=== PATIENT | female | born 1945 | race Caucasian/White ===

== ENCOUNTER 2022-01-10 14:42 | Outpatient (CLI) | payer MEDICARE, SELFPAY ==
--- OUTSIDE RECORDS SUMMARY | 2022-01-10 14:45 | XMS_ITS | Encounter Summary ---
:1945 Author Organization [facility] Address [address] [place] [address] Care Team Providers Name Role Phone Elsewhere, Pcp Primary Care Provider Unavailable Reason for Referral Outpatient (Routine) - Closed Specialty Diagnoses / Procedures Referred By Contact Refer red To Contact Diagnoses Neuropathy Antonio Flores M.D. [facility] Procedures EMG [address] [place], [place] [address] Referral ID Status Reason Start Date Expiration Date Visits Requ ested Visits Authorized [id number] Closed 09/27/2021 09/27/2022 1 1 Outpatient (Routine) - Closed Specialty Diagnoses / Procedures Referred By Contact Refer red To Contact Diagnoses Neuropathy Antonio Flores M.D. [facility] Procedures Quantitative sensory test (QST) [address] [place], [place] [address] Referral ID Status Reason Start Date Expiration Date Visits Requ ested Visits Authorized [id number] Closed 09/27/2021 09/27/2022 1 1 Outpatient (Routine) - Closed Specialty Diagnoses / Procedures Referred By Contact Refer red To Contact Diagnoses Neuropathy Antonio Flores M.D. [facility] Procedures Autonomic reflex Screen [address] [place], [place] [phone] Referral ID Status Reason Start Date Expiration Date Visits Requ ested Visits Authorized [id number] Closed 09/27/2021 09/27/2022 1 1 Reason for Visit Reason Comments Pre-visit Testing Orders Encounter Details Date Type Department Care Team Description 09/19/2021 Clinical Communication Department of Mark, Pre- visit Testing Neurology in Antonio Doll M.D. Orders [place], [facility] [address] [place], [place] [address] [facility] [address] [place], [place] [phone] (Work) [phone] 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 Tobacco Use Types Packs/Day Years [...] or relatives? How often do you attend mosque or Never 2021 cheondoism services? Do you belong to any clubs or No 09/22/2021 organizations such as mosque groups, unions, fraternal or athletic groups, or [...] place to sleep or slept in a care home (including now)? Sex Assigned at Date [...] ? Final Report Study Number: 1 [facility] Drilling And Production Superintendent: Jimmy Abdi. 127 o r [phone] Referred by: ANTONIO FLORES (127 o r [phone]) Referred for: Peripheral Neuropathy Referral Code: ?200 [...] sensorimotor neuropathy . Joy Abdi (127 or [phone])/[facility] NERVE CONDUCTIONS ??Record Rep ?? [...] Final Repor t Study Number: 1 [facility] Drilling And Production Superintendent: Jimmy Abdi. 127 o r [phone] Referred by: ANTONIO FLORES (127 o r [phone]) Referred for: Peripheral Neuropathy Referral Code: 200 [...] sensorimotor neuropathy . Joy Abdi (127 or [phone])/[facility] NERVE CONDUCTIONS Record Rep Normal [...] ? [phone] ? A ge: 76 ?Location: [facility] ? Lab #: [id number] Apolonia William ? S ex: F ? Order ID: ??[id number] ? Date: 10/03/2021 : 1945 Autonomic Drilling And Production Superintendent: Destiney Jara M.D. ([id number]) ?CONCLUSION Abnormal study. There is evidence of [...] to the Valsalva maneuver were reduced. (B) [id number] blood pressure response s to the Valsalva [...] Neuropathy documented in this encounter Care Teams Bus Steward Relationship Specialty Start Date End Date Elsewhere, Pcp PCP - General Internal Medicine 09/26/21 documented as of this encounter
--- OUTSIDE RECORDS SUMMARY | 2022-01-10 14:45 | XMS_ITS | Clinical Summary ---
:1945 Author Organization [facility] Address [address] [place] [address] Care Team Providers Name Role Phone Elsewhere, Pcp Primary Care Provider Unavailable Source Comments Patient records contain information from all sites at [facility]. For routine questions regarding patient records, call [phone] during business hours, M-F 8:00 AM - 5:00 PM Central Time. Record requests for emergency care only can be directed to [phone] at any time.[facility] Allergies Active Allergy Reactions Severity Noted Date [...] or relatives? How often do you attend scientologist or Never 2021 hinduism services? Do you belong to any clubs or No 09/22/2021 organizations such as scientologist groups, unions, fraternal or athletic groups, or [...] place to sleep or slept in a senior living (including now)? Education Answer Date Recorded What [...] 08/14/2021, 04/2018 Medical Devices Implanted Type Area Justice Court Deputy Clerk Device Shelf Model / Identifier Expiration Serial / Date Lot Hardware E.G. Hardware Right: Pins/Screws/R e.g. Wrist ods pins/screws/ rods Description: Titanium plate Insurance Payer Benefit Plan / Subscriber ID Effective Dates Phone Addre ss Type Group MEDICARE MEDICARE A AND [id number] 2012-Prese [address] Medicare B [place] [id number] AARP AARP [id number] 2021-Presen [phone] [id number] [place] [address] Care Teams Patient Partner Relationship Specialty Start Date End Date Elsewhere, Pcp PCP - General Internal Medicine 09/26/21
--- OUTSIDE RECORDS SUMMARY | 2022-01-10 14:45 | XMS_ITS | Encounter Summary ---
:1945 Author Organization [facility] Address [address] [place] [address] Care Team Providers Name Role Phone Elsewhere, Pcp Primary Care Provider Unavailable Reason for Referral Outpatient (Routine) - Authorized Specialty Diagnoses / Procedures Referred By Contact Refer red To Contact Diagnoses Primary Osteoarthritis Knee Bilateral [facility] DX Knee Bilateral Standing 2 Views M.D. [address] [place] [phone] Referral ID Status Reason Start Date Expiration Date Visits V isits Requested Authorized [id number] Authorized 11/23/2021 11/23/2022 1 1 Outpatient (Routine) - Authorized Specialty Diagnoses / Procedures Referred By Referred To Contact Contact Physical Medicine and Diagnoses Primary Osteoarthritis Knee Bilateral Iban Flores [facility] Meka Doll M.D. [address] [place] [phone] Referral ID Status Reason Start Date Expiration Date Visits V isits Requested Authorized [id number] Authorized 11/23/2021 11/23/2022 1 1 Scheduling Instructions Please schedule if possible just before PM&R evaluation Reason for Visit Outpatient (Routine) - Closed Specialty Diagnoses / Procedures Referred By Contact Refer red To Contact Neurology Edgar Armstrong M.D. [facility] [address] [place] [phone] Referral ID Status Reason Start Date Expiration Date Visits Requ ested Visits Authorized [id number] Closed 09/26/2021 09/26/2022 1 1 Encounter Details Date Type Department Care Team Description 11/23/2021 Telemedicine Department of [facility], Primary Osteoa rthritis Neurology in Iban Doll M.D. Knee Bilateral (Primary [place], [place] [address] [facility] D[facility]) [address] [place] [phone] 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 Tobacco Use Types Packs/Day Years [...] or relatives? How often do you attend muslim or Never 2021 episcopalian services? Do you belong to any clubs or No 09/22/2021 organizations such as muslim groups, unions, fraternal or athletic groups, or [...] Primary documented in this encounter Care Teams Spiral Gear Generator Relationship Specialty Start Date End Date Elsewhere, Pcp PCP - General Internal Medicine 09/26/21 documented as of this encounter
--- OUTSIDE RECORDS SUMMARY | 2022-01-10 14:45 | XMS_ITS | Encounter Summary ---
:1945 Author Organization [facility] Address [address] [place] [address] Care Team Providers Name Role Phone Unavailable Primary Care Provider Unavailable Encounter Details Date Type Department Care Team Description 09/25/2021 Clinical Communication Visit Review in [place], [place] [address] [place], [place] [address] 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 Tobacco Use Types Packs/Day Years [...] or relatives? How often do you attend spiritism or Never 2021 restoration services? Do you belong to any clubs or No 09/22/2021 organizations such as spiritism groups, unions, fraternal or athletic groups, or [...] place to sleep or slept in a jail (including now)? Education Answer Date Recorded What [...]
--- OUTSIDE RECORDS SUMMARY | 2022-01-10 14:45 | XMS_ITS | Encounter Summary ---
:1945 Author Organization [facility] Address [address] [place] [address] Care Team Providers Name Role Phone Elsewhere, Pcp Primary Care Provider Unavailable Reason for Referral Outpatient (Routine) - Closed Specialty Diagnoses / Procedures Referred By Contact Refer red To Contact Diagnoses Neuropathy Antonio Flores M.D. [facility] Procedures EMG [address] [place] [address] Referral ID Status Reason Start Date Expiration Date Visits Requ ested Visits Authorized [id number] Closed 09/27/2021 09/27/2022 1 1 Reason for Visit Outpatient (Routine) - Closed Specialty Diagnoses / Procedures Referred By Contact Refer red To Contact Diagnoses Neuropathy Antonio Flores M.D. [facility] Procedures EMG [address] [place] [address] Referral ID Status Reason Start Date Expiration Date Visits Requ ested Visits Authorized [id number] Closed 09/27/2021 09/27/2022 1 1 Encounter Details Date Type Department Care Team Description 10/03/2021 Hospital Encounter Department of Neurology Antonio Flores Neuropathy in [facility] ollie Doll M.D. [address] [place] [phone] (Wo rk) 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 Tobacco Use Types [...] or relatives? How often do you attend mandaeism or Never 2021 anglican services? Do you belong to any clubs or No 09/22/2021 organizations such as mandaeism groups, unions, fraternal or athletic groups, or [...] place to sleep or slept in a halfway (including now)? Education Answer Date Recorded What [...] ? Final Report Study Number: 1 EMG Chief School Finance Officer: Jimmy Abdi. 127 o r [phone] Referred by: ANTONIO FLORES ([phone] o r [phone]) Referred for: Peripheral Neuropathy Referral Code: ?200 [...] sensorimotor neuropathy . Joy Abdi (127 or [phone])/[facility] NERVE CONDUCTIONS ??Record Rep ?? Normal ??Normal [...] Final Repor t Study Number: 1 EMG Chief School Finance Officer: Jimmy Abdi. 127 o r [phone] Referred by: ANTONIO FLORES (127 o r [phone]) Referred for: Peripheral Neuropathy Referral Code: 200 [...] sensorimotor neuropathy . Joy Abdi (127 or [phone])/[facility] NERVE CONDUCTIONS Record Rep Normal Normal Distal [...] Neuropathy documented in this encounter Care Teams Python Java Developer Relationship Specialty Start Date End Date Elsewhere, Pcp PCP - General Internal Medicine 09/26/21 documented as of this encounter
--- OUTSIDE RECORDS SUMMARY | 2022-01-10 14:45 | XMS_ITS | Encounter Summary ---
:1945 Author Organization [facility] Address [address] [place] [address] Care Team Providers Name Role Phone Elsewhere, Pcp Primary Care Provider Unavailable Reason for Referral Outpatient (Routine) - Closed Specialty Diagnoses / Procedures Referred By Contact Refer red To Contact Neurology Edgar Armstrong M.D. [facility] [address] [place], [place] [address] Referral ID Status Reason Start Date Expiration Date Visits Requ ested Visits Authorized [id number] Closed 09/26/2021 09/26/2022 1 1 Outpatient (Routine) - Closed Specialty Diagnoses / Procedures Referred By Contact Navjot maria To Contact Diagnoses Neuropathy Edgar Armstrong M.D. [facility] Procedures Fat Aspirate [address] [place], [place] [address] Referral ID Status Reason Start Date Expiration Date Visits Requ ested Visits Authorized [id number] Closed 09/26/2021 09/26/2022 1 1 Reason for Visit Appointment Request (Routine) - Closed Specialty Diagnoses / Procedures Referred By Contact Navjot maria To Contact Neurology Diagnoses Neuropathy Imbalance Non Orthopedic Referral ID Status Reason Start Date Expiration Date Visits Requ ested Visits Authorized [id number] Closed 08/31/2021 08/31/2022 1 1 Encounter Details Date Type Department Care Team Description 09/26/2021 Comprehensive Visit Department of [place], Neuropa thy (Primary Neurology in Iban Doll M.D. Dx) Harriet, [address] [place], [place] [address] [facility] [address] [place], [place] [phone] (Work) [phone] 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 Tobacco Use Types Packs/Day Years [...] do you attend judaism or Never 2021 sabianism services? Do you belong to any clubs [...] place to sleep or slept in a detention (including now)? Education Answer Date Recorded What [...] provider found She was previously evaluated at [facility] Neurological [facility]. CHIEF COMPLAINT / REASON FOR VISIT Apolonia William is a 76 y.o. female who presents for evaluation of peripheral neuropathy. HISTORY OF PRESENT ILLNESS is a pleasant 76 y.o. right handed female from [place], [place]. 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 Apolonia William presents today [...] than three times a week ??? Attends Church Services: Never ??? Active Member of Clubs [...] age of 86. Her mother has beenat halfway for the last 3 years that she [...] pooling) Coordination: Normal rapid alternating movements and zkqhag-ck-rnqf testing IMPRESSION #1 Length-dependent sensory peripheral neuropathy; [...] ??? Monoclonal Gammopathy Diagnostic ??? Pernicious Anemia [place] ??? Thyroid Function [place] ??? Vitamin B6 Profile (PLP and PA) [...] Name Type Priority Associated Diagnoses Order S [facility] Neurology office Outpatient Referral Routine Expe cted: visit (clinic) 09/26/2021 (Approximate), Expires: 12/27/2022 documented as of this encounter Results [place] FNA BX WO IMG 1ST [place]ES[place], HC [...] M.D. PROCEDURE/MINOR SURGICAL ORD ERABLES Thyroid Function [place] (09/28/2021 7:33 AM CDT) athologist Signature TSH, Sensitive 3.2 0.3 - 4.2 09/28/2021 DT mIU/L 8:53 AM CDT Specimen Anatomical Collection Method Collection Time Receive d Time (Source) Location / / Volume Laterality Blood (Blood, 09/28/2021 7:33 AM 09/29/19 22 8:26 Venous) CDT AM CDT Edgar Armstrong M.D. LAB BLOOD ADD-ON Performing Organization Address City/[facility]/ZIP Code Phon e Number [facility] - [address] [place], [place] [address] [place] [address] [facility] [address] Pernicious Anemia [place] (09/28/2021 7:33 AM CDT) athologist Signature Vitamin B12 770 180 - 914 09/28/2021 [facility] Assay, S ng/L 12:30 PM CDT Specimen Anatomical Collection Method Collection Time Receive d Time (Source) Location / / Volume Laterality Blood (Blood, 09/28/2021 7:33 AM 09/29/19 22 Venous) CDT 11:31 AM CDT Edgar Armstrong M.D. LAB BLOOD NON ADD-ON Performing Organization Address City/[facility] Phon e Number [facility] [address] [place], [place] [address] [facility] [place] [address] Laboratory Medicine and Pathology [address] [...] Organization Address City/State/ZIP Code Phon e Number [facility] - [address] [place], [place] [address] [facility] [place] [address] [facility] [address] (ABNORMAL) [...] M.D. LAB BLOOD ADD-ON Performing Organization Address City/[facility] Phon e Number [facility] - [address] [place], [place] [address] [place] [address] [facility] [address] HIV-1/-2 Ag and Ab Screen, Plasma (09/28/2021 7:33 AM CDT) athologist Signature HIV-1/-2 Ag Negative Negative 09/28/2021 [facility] and Ab Screen, 12:05 PM CDT Comment: [...] Organization Address City/State/ZIP Code Phon e Number [facility] [address] [place], [place] [address] [facility] [facility] [place] [address] Laboratory Medicine and Pathology [address] [...] Organization Address City/State/ZIP Code Phon e Number [facility] - [address] [place], [place] [address] [facility] [place] [address] [facility] [address] Zinc (09/28/2021 7:32 AM CDT) athologist Signature Zinc, S 66 60 - 106 09/28/2021 [facility] mcg/dL 12:58 PM CDT Comment: ----ADDITIONAL INFORMATION---- This test was developed and its performa nce characteristics determined by [facility] in a manner consistent with CLIA requirements. This test has not been cleared or approved by the [place] d and Drug Administration. Specimen Anatomical Collection Method Collection Time Receive d Time (Source) Location / / Volume Laterality Blood (Blood, 09/28/2021 7:32 AM 09/29/19 22 Venous) CDT 10:47 AM CDT Edgar Armstrong M.D. LAB BLOOD NON ADD-ON Performing Organization Address City/[facility]/ZIP Code Phon e Number [facility] [address] [place] [facility] 05 [facility] [facility] [place] [address] Laboratory Medicine and Pathology [address] [place] [address] Dr. [place] Vitamin E Level (09/28/2021 7:32 AM CDT) athologist Signature A-Tocopherol, 11.5 5.5 - 17.0 09/29/2021 [facility] Vitamin E mg/L 11:59 PM CDT Comment: ----ADDITIONAL INFORMATION---- This test was developed and its performa nce characteristics determined by [facility] in a manner consistent with CLIA requirements. This test has not been cleared or approved by the [place] d and Drug Administration. Specimen Anatomical Collection Method Collection Time Receive d Time (Source) Location / / Volume Laterality Blood (Blood, 09/28/2021 7:32 AM 09/29/19 22 Venous) CDT 11:54 AM CDT Edgar Armstrong M.D. LAB BLOOD NON ADD-ON Performing Organization Address City/[facility]/ZIP Code Phon e Number [facility] [address] [place] [address] [facility] [facility] [place] [address] Laboratory Medicine and Pathology [address] [place] [address] Dr. [place] Monoclonal Gammopathy Diagnostic (09/28/2021 7:32 AM CDT) Patholo gist Method Time Signature Therapeutic Unspecified 09/28/2021 [facility] Antibody 10:34 AM Administered? CDT Total Protein, 6.9 6.3 - 7.9 09/28/2021 [facility] S g/dL 11:20 AM CDT [place] Free 1.53 0.3300 - 09/28/2021 [facility] Light Chain, S 1.94 mg/dL 10:50 AM CDT [place] Free 1.02 0.5700 - 09/28/2021 [facility] Light Chain, S 2.63 mg/dL 10:50 AM CDT [place]/Lambda 1.50 0.2600 - 09/28/2021 [facility] FLC Ratio [...] and its performa nce characteristics determined by [facility] in a manner consistent with CLIA requirements. This test has not been cleared or approved by the [place] d and Drug Administration. Specimen Anatomical Collection Method Collection Time Receive d Time (Source) Location / / Volume Laterality Blood (Blood, 09/28/2021 7:32 AM 09/29/19 Venous) CDT 10:32 AM CDT Narrative [facility] SUPPORT [place] R - 09/29/2021 11:25 AM CDT Specimen Information: Specimen ID: [id number] Specimen Type: Blood Specimen Collection Start Date: 09/29/19 ??7:32 AM Specimen Received Date: 09/28/2021 10:32 AM Specimen ID: [id number] Specimen Type: Blood Specimen Collection Start Date: 09/29/19 ??7:32 AM Specimen Received Date: 09/28/2021 10:32 AM Edgar Armstrong M.D. LAB BLOOD ADD-ON Performing Organization Address City/[facility] Code Phon e Number [address] [place] [address] [address] [facility] [place] [address] Laboratory Medicine and Pathology [address] [place] [address] Dr. [place] Cryoglobulin (09/28/2021 7:32 AM CDT) [facility] Method Time Signature Cryoglobulin, Negative Negative 09/29/2021 [facility] S %ppt 10:47 AM CDT Comment: This [...] LAB BLOOD NON ADD-ON Performing Organization Address City/[facility]/ZIP Code Phon e Number [address] [place], [place] [address] [address] [facility] [place] [address] Laboratory Medicine and Pathology [address] [place] [address] Dr. [place] (ABNORMAL) Copper (09/28/2021 7:32 AM CDT) P athologist Signature [place]pper, S 75 (L) 77 - 206 09/28/2021 [facility] mcg/dL 12:58 PM CDT Comment: ----ADDITIONAL INFORMATION---- This test was developed and its performa nce characteristics determined by [facility] in a manner consistent with CLIA requirements. This test has not been cleared or approved by the [place] d and Drug Administration. Specimen Anatomical Collection Method Collection Time Receive d Time (Source) Location / / Volume Laterality Blood (Blood, 09/28/2021 7:32 AM 09/29/19 22 Venous) CDT 10:47 AM CDT Edgar Armstrong M.D. LAB BLOOD NON ADD-ON Performing Organization Address City/[facility]/ZIP Code Phon e Number [facility] [address] [place], [place] [address] [place] [address] [place] [address] Laboratory Medicine and Pathology [address] [place] Antibody to Extractable Nuclear Antigen Evaluation (09/28/2021 7:32 AM CDT) P athologist Signature SS-A/Ro Ab, <0.2 <1.0 09/28/2021 [facility] IgG, S (Negative) 11:26 AM CDT U SS-B/La Ab, <0.2 <1.0 09/28/2021 [facility] IgG, S (Negative) 11:26 AM CDT U Sm Ab, IgG, S <0.2 <1.0 09/28/2021 [facility] (Negative) 11:26 AM CDT U DISTRIBUTION ANALYST Ab, IgG, S <0.2 <1.0 09/28/2021 [facility] (Negative) 11:26 AM CDT U Scl 70 Ab, IgG, <0.2 <1.0 09/28/2021 [facility] S (Negative) 11:26 AM CDT U Megan 1 Ab, IgG, S <0.2 <1.0 09/28/2021 [facility] (Negative) 11:26 AM CDT U Specimen Anatomical Collection Method Collection Time Receive d Time (Source) Location / / Volume Laterality Blood (Blood, 09/28/2021 7:32 AM 09/29/19 22 Venous) CDT 10:31 AM CDT Edgar Armstrong M.D. LAB BLOOD ADD-ON Performing Organization Address City/[facility]/ZIP Code Phon e Number [facility] [address] [place] [address] [facility] [place] [address] Laboratory Medicine and Pathology [address] [place] [address] Dr. [place] ANCA (Antineutrophil Cytoplasmic Antibodies) Vasculitis Panel (09/28/2021 7:32 AM CDT) Patholo gist Method Time Signature Myeloperoxidase Ab, <0.2 <0.4 09/28/2021 [facility] S (Negative 11:22 AM CDT ) U Proteinase 3 Ab <0.2 <0.4 09/28/2021 [facility] (PR3), S (Negative 11:22 AM CDT ) U Specimen Anatomical Collection Method Collection Time Receive d Time (Source) Location / / Volume Laterality Blood (Blood, 09/28/2021 7:32 AM 09/29/19 Venous) CDT 10:31 AM CDT Edgar Armstrong M.D. LAB BLOOD ADD-ON Performing Organization Address City/[facility]/ZIP Code Phon e Number [address] [place] [address] [place] [address] Laboratory Medicine and Pathology [address] [place] [address] Dr. [place] Vitamin B6 Profile (PLP and PA) (09/28/2021 7:31 AM CDT) athologist Signature Pyridoxal 32 5 - 50 09/29/2021 [facility] 5-Phosphate mcg/L 3:54 PM CDT (PLP), P Comment: ----ADDITIONAL INFORMATION---- This test was developed and its performa nce characteristics determined by [facility] in a manner consistent with CLIA requirements. This test has not been cleared or approved by the [place] d and Drug Administration. Pyridoxic Acid (PA), P 8 3 - 30 mcg/L 09/29/2021 3:5 4 PM CDT [facility] Comment: ----ADDITIONAL INFORMATION---- This test was developed and its performa nce characteristics determined by [facility] in a manner consistent with CLIA requirements. [...] Organization Address City/State/ZIP Code Phon e Number [facility] [address] [place] [address] CENTER [facility] [place] [address] Laboratory Medicine and Pathology [address] [place] documented in this encounter Visit Diagnoses Diagnosis Neuropathy - Primary Neuropathy Neuropathy documented in this encounter Care Teams Sugar Sampler Relationship Specialty Start Date End Date Elsewhere, Pcp PCP - General Internal Medicine 09/26/21 documented as of this encounter
--- OUTSIDE RECORDS SUMMARY | 2022-01-10 14:45 | XMS_ITS | Encounter Summary ---
:1945 Author Organization [facility] Address [address] [place] [address] Care Team Providers Name Role Phone Elsewhere, Pcp Primary Care Provider Unavailable Reason for Visit Outpatient (Routine) - Closed Specialty Diagnoses / Procedures Referred By Contact Refer red To Contact Diagnoses Neuropathy Edgar Armstrong M.D. [facility] Procedures Fat Aspirate [address] [place] [address] Referral ID Status Reason Start Date Expiration Date Visits Requ ested Visits Authorized [id number] Closed 09/26/2021 09/26/2022 1 1 Encounter Details Date Type Department Care Team Description 09/28/2021 Infusion Department of Infusion Therapy Edgar Armstrong, Neuropathy in [facility] [address] [facility] [address] [place] [address] [place], [place] [phone] (Wo rk) 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 Tobacco Use Types [...] or relatives? How often do you attend sikh or Never 2021 mormon services? Do you belong to any clubs or No 09/22/2021 organizations such as sikh groups, unions, fraternal or athletic groups, or [...] procedure are i n the results section. NM FNA BX WO IMG 1ST Routine 09/28/2021 8:00 AM Neuropathy R esults for this LESION CDT procedure are i n the results section. SUBCUTANEOUS FAT Routine 09/28/2021 5:24 AM Resul ts for this ASPIRATE CDT procedure are i n the results section. documented in this encounter Results NM FNA BX WO IMG 1ST [place], HC [...] Component Value Ref Test Analysis Performed At [facility] Method Time Signature 09/29/2021 [facility] 12:56 PM CDT Report Sergio French M.D. 09/29/2021 [facility] electronically 12:56 PM signed by CDT I verify that I have examined all relevant slides/materials for the specimen(s) and rendered or confirmed the diagnosis. Gross Description The subcutaneous fat aspirate used for diagnostic purposes 09/29/2021 [facility] consists of 0.5 mL fat. 12:56 PM CDT Interpretation FINAL DIAGNOSIS 09/29/2021 [facility] [place] red stain, abdominal subcutaneous fat aspirate 12:56 PM specimen: Amyloid is absent. CDT Specimen Anatomical Collection Method Collection Time Receive d Time (Source) Location / / Volume Laterality Varies 09/28/2021 5:24 AM 5:24 CDT AM CDT Narrative This result has an attachment that is no t available. Edgar Armstrong M.D. LAB PATHOLOGY/CYTOLOGY ORDER [place] Performing Organization Address City/State/ZIP Code Phon e Number [facility] - [address] [place], [place] [address] [place] [address] [facility] [address] documented in this encounter Visit Diagnoses Diagnosis Neuropathy documented in this encounter Care Teams Hyster Driver Relationship Specialty Start Date End Date Elsewhere, Pcp PCP - General Internal Medicine 09/26/21 documented as of this encounter
--- OUTSIDE RECORDS SUMMARY | 2022-01-10 14:45 | XMS_ITS | Encounter Summary ---
:1945 Author Organization [facility] Address [address] [place] [address] Care Team Providers Name Role Phone Elsewhere, Pcp Primary Care Provider Unavailable Reason for Referral Outpatient (Routine) - Closed Specialty Diagnoses / Procedures Referred By Contact Refer red To Contact Diagnoses Neuropathy Iban Flores M.D. [facility] Procedures Autonomic reflex Screen [address] [place] [address] Referral ID Status Reason Start Date Expiration Date Visits Requ ested Visits Authorized [id number] Closed 09/27/2021 09/27/2022 1 1 Reason for Visit Outpatient (Routine) - Closed Specialty Diagnoses / Procedures Referred By Contact Refer red To Contact Diagnoses Neuropathy Iban Flores M.D. [facility] Procedures Autonomic reflex Screen [address] [place] [address] Referral ID Status Reason Start Date Expiration Date Visits Requ ested Visits Authorized [id number] Closed 09/27/2021 09/27/2022 1 1 Encounter Details Date Type Department Care Team Description 10/03/2021 Hospital Encounter Department of Neurology Iban Flores Neuropathy in [facility] ollie Doll M.D. [address] [facility] [address] [place] [address] [phone] (Wo rk) 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 Tobacco Use Types [...] or relatives? How often do you attend druze or Never 2021 taoism services? Do you belong to any clubs or No 09/22/2021 organizations such as druze groups, unions, fraternal or athletic groups, or [...] ? [phone] ? A ge: 76 ?Location: [facility] ? Lab #: [id number] Apolonia William ? S ex: F ? Order ID: ??[id number] ? Date: 10/03/2021 : 1945 Autonomic All Round Butcher: Destiney Jara M.D. ([id number]) ?CONCLUSION Abnormal study. There is evidence of [...] to the Valsalva maneuver were reduced. (B) Fcvs-ry-yjhf blood pressure response s to the Valsalva [...] Code Phon e Number [facility] documented in this encounter Visit Diagnoses Diagnosis Neuropathy documented in this encounter Care Teams Automatic Machines Supervisor Relationship Specialty Start Date End Date Elsewhere, Pcp PCP - General Internal Medicine 09/26/21 documented as of this encounter
--- OUTSIDE RECORDS SUMMARY | 2022-01-10 14:45 | XMS_ITS | Encounter Summary ---
:1945 Author Organization [facility] Address [address] [place] [address] Care Team Providers Name Role Phone Elsewhere, Pcp Primary Care Provider Unavailable Reason for Visit Outpatient (Routine) - Closed Specialty Diagnoses / Procedures Referred By Contact Refer red To Contact Diagnoses Neuropathy Iban Flores M.D. [facility] Procedures Quantitative sensory test (QST) [address] [place] [address] Referral ID Status Reason Start Date Expiration Date Visits Requ ested Visits Authorized [id number] Closed 09/27/2021 09/27/2022 1 1 Encounter Details Date Type Department Care Team Description 09/28/2021 Diagnostic Department of Neurology in [place] Flores, Neuropathy [place], [place] Yenifer [address] [facility] [address] [place] [address] [place] [address] [phone] (Wo rk) 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 Tobacco Use Types [...] do you attend sikh or Never 2021 taoism services? Do you [...] to sleep or slept in a senior care (including now)? Education Answer Date Recorded What [...] Neuropathy documented in this encounter Care Teams Rotary Screen Printing Machine Operator Relationship Specialty Start Date End Date Elsewhere, Pcp PCP - General Internal Medicine 09/26/21 documented as of this encounter
--- OUTSIDE RECORDS SUMMARY | 2022-01-10 14:45 | XMS_ITS | Encounter Summary ---
:1945 Author Organization [facility] Address [address] [place] [address] Care Team Providers Name Role Phone Elsewhere, Pcp Primary Care Provider Unavailable Encounter Details Date Type Department Care Team Description 09/28/2021 Hospital Encounter Department of Laboratory [place], Neuropathy Medicine and Pathology, Ke stone M.D. [facility] in [address] [place] [address] [place] [id number] [place] [address] [phone] 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 Tobacco Use Types Packs/Day Years [...] or relatives? How often do you attend mandaen or Never 2021 mormon services? Do you belong to any clubs or No 09/22/2021 organizations such as mandaen groups, unions, fraternal or athletic groups, or [...] documented in this encounter Results Thyroid Function [place] (09/28/2021 7:33 AM CDT) P athologist Signature TSH, Sensitive 3.2 0.3 - 4.2 09/28/2021 [facility] mIU/L 8:53 AM CDT Specimen Anatomical Collection Method Collection Time Receive d Time (Source) Location / / Volume Laterality Blood (Blood, 09/28/2021 7:33 AM 09/29/19 8:26 Venous) CDT AM CDT Edgar Armstrong M.D. LAB BLOOD ADD-ON Performing Organization Address City/[facility]/ZIP Code Phon e Number [facility] - [address] [place], [place] [address] [place] [address] Laboratories-[facility] [address] Pernicious Anemia [place] (09/28/2021 7:33 AM CDT) athologist Signature Vitamin B12 770 180 - 914 09/28/2021 [facility] Assay, S ng/L 12:30 PM CDT Specimen Anatomical Collection Method Collection Time Receive d Time (Source) Location / / Volume Laterality Blood (Blood, 09/28/2021 7:33 AM 09/29/19 Venous) CDT 11:31 AM CDT Edgar Armstrong M.D. LAB BLOOD NON ADD-ON Performing Organization Address City/[facility]/ZIP [facility] Phon e Number [facility] [address] [place], [place] [address] SUPPORT CENTER [facility] [place] [address] Laboratory Medicine and Pathology [address] [...] M.D. LAB BLOOD ADD-ON Performing Organization Address City/[facility] Phon e Number [facility] - [address] [place], [place] [id number] [place] [address] (ABNORMAL) Hemoglobin A1c (09/28/2021 7:33 AM CDT) [...] M.D. LAB BLOOD ADD-ON Performing Organization Address City/State/[facility] Phon e Number [facility] - 200 [place], [place] [address] [facility] [place] [address] Laboratories-[address] HIV-1/-2 Ag and Ab Screen, Plasma (09/28/2021 7:33 AM CDT) P athologist Signature HIV-1/-2 Ag Negative Negative 09/28/2021 [facility] and Ab Screen, 12:05 PM CDT P [...] Organization Address City/State/ZIP Code Phon e Number [facility] [address] [place], [place] [address] SUPPORT CENTER [facility] [place] [address] Laboratory Medicine and Pathology [address] [...] M.D. LAB BLOOD ADD-ON Performing Organization Address City/[facility] Phon e Number [facility] - [facility] [place], [place] [address] [facility] [address] Laboratories-[facility] [address] Zinc (09/28/2021 7:32 AM CDT) athologist Signature Zinc, S 66 60 - 106 09/28/2021 [facility] mcg/dL 12:58 PM CDT Comment: ----ADDITIONAL INFORMATION---- This test was developed and its performa nce characteristics determined by [facility] in a manner consistent with CLIA requirements. This test has not been cleared or approved by the [place] and Drug Administration. Specimen Anatomical Collection Method Collection Time Receive d Time (Source) Location / / Volume Laterality Blood (Blood, 09/28/2021 7:32 AM 09/29/19 Venous) CDT 10:47 AM CDT Edgar Armstrong M.D. LAB BLOOD NON ADD-ON Performing Organization Address City/[facility] Phon e Number [facility] [address] [place], [place] [address] SU[facility]ENTER [facility] [place] [address] Laboratory Medicine and Pathology [address] [place] Vitamin E Level (09/28/2021 7:32 AM CDT) P athologist Signature A-Tocopherol, 11.5 5.5 - 17.0 09/29/2021 [facility] Vitamin E mg/L 11:59 PM CDT Comment: ----ADDITIONAL INFORMATION---- This test was developed and its performa nce characteristics determined by [facility] in a manner consistent with CLIA requirements. [...] Organization Address City/State/ZIP Code Phon e Number [facility] [address] [place], [place] [address] [place] [address] CENTER [facility] [address] Laboratory Medicine and Pathology [address] [place] Monoclonal Gammopathy Diagnostic (09/28/2021 7:32 AM CDT) Patholo gist Method Time Signature Therapeutic Unspecified 09/28/2021 [facility] Antibody 10:34 AM Administered? CDT Total Protein, 6.9 6.3 - 7.9 09/28/2021 [facility] S g/dL 11:20 AM CDT [place] Free 1.53 0.3300 - 09/28/2021 [facility] Light Chain, S 1.94 mg/dL 10:50 AM CDT [place] Free 1.02 0.5700 - 09/28/2021 [facility] Light Chain, S 2.63 mg/dL 10:50 AM CDT [place]/Lambda 1.50 0.2600 - 09/28/2021 [facility] FLC Ratio [...] and its performa nce characteristics determined by [facility] in a manner consistent with CLIA requirements. This test has not been cleared or approved by the [place] d and Drug Administration. Specimen Anatomical Collection Method Collection Time Receive d Time (Source) Location / / Volume Laterality Blood (Blood, 09/28/2021 7:32 AM 09/29/19 Venous) CDT 10:32 AM CDT Narrative [facility] SUPPORT [facility] - 09/29/2021 11:25 AM CDT Specimen Information: Specimen ID: [id number] Specimen Type: Blood Specimen Collection Start Date: 09/29/19 ??7:32 AM Specimen Received Date: 09/28/2021 10:32 AM Specimen ID: [id number] Specimen Type: Blood Specimen Collection Start Date: 09/29/19 22 ??7:32 AM Specimen Received Date: 09/28/2021 10:32 AM Edgar Armstrong M.D. LAB BLOOD ADD-ON Performing Organization Address City/State/ZIP Code Phon e Number [facility] [address] [place] [address] [place] [address] [place] [address] Laboratory Medicine and Pathology [address] [place] Cryoglobulin (09/28/2021 7:32 AM CDT) [facility] gist Method Time Signature Cryoglobulin, Negative Negative 09/29/2021 [facility] S %ppt 10:47 AM CDT Comment: [...] LAB BLOOD NON ADD-ON Performing Organization Address City/[facility]/ZIP Code Phon e Number [facility] [address] [place] [address] SUPPORT CENTER [facility] [place] [address] Laboratory Medicine and Pathology [address] [place] [address] Dr. [place] (ABNORMAL) [place] (09/28/2021 7:32 AM CDT) athologist Signature [place], S 75 (L) 77 - 206 09/28/2021 [facility] mcg/dL 12:58 PM CDT Comment: ----ADDITIONAL INFORMATION---- This test was developed and its performa nce characteristics determined by [facility] in a manner consistent with CLIA requirements. This test has not been cleared or approved by the [place] and Drug Administration. Specimen Anatomical Collection Method Collection Time Receive d Time (Source) Location / / Volume Laterality Blood (Blood, 09/28/2021 7:32 AM 09/29/19 22 Venous) CDT 10:47 AM CDT Edgar Armstrong M.D. LAB BLOOD NON ADD-ON Performing Organization Address City/[facility]/ZIP Code Phon e Number [facility] [address] [place] [address] [facility] [place] [address] Laboratory Medicine and Pathology [address] [place] [address] Dr. [place] Antibody to Extractable Nuclear Antigen Evaluation (09/28/2021 7:32 AM CDT) P athologist Signature SS-A/Ro Ab, <0.2 <1.0 09/28/2021 [facility] IgG, S (Negative) 11:26 AM CDT U SS-B/La Ab, <0.2 <1.0 09/28/2021 [facility] IgG, S (Negative) 11:26 AM CDT U Sm Ab, IgG, S <0.2 <1.0 09/28/2021 [facility] (Negative) 11:26 AM CDT U HANDKERCHIEF SAMPLE CLERK Ab, IgG, S <0.2 <1.0 09/28/2021 [facility] [...] M.D. LAB BLOOD ADD-ON Performing Organization Address City/[facility]/ZIP Code Phon e Number [facility] [address] [place] [address] [place] [address] Laboratory Medicine and Pathology [address] [place] ANCA (Antineutrophil Cytoplasmic Antibodies) Vasculitis Panel (09/28/2021 7:32 AM CDT) [facility] gist Method Time Signature Myeloperoxidase Ab, <0.2 <0.4 09/28/2021 [facility] S (Negative 11:22 AM CDT ) U Proteinase 3 Ab <0.2 <0.4 09/28/2021 [facility] (PR3), S (Negative 11:22 AM CDT ) U Specimen Anatomical Collection Method Collection Time Receive d Time (Source) Location / / Volume Laterality Blood (Blood, 09/28/2021 7:32 AM 09/29/19 22 Venous) CDT 10:31 AM CDT Edgar Armstrong M.D. LAB BLOOD ADD-ON Performing Organization Address City/State/ZIP Code Phon e Number [facility] [address] [place] [address] SUPPORT CENTER [facility] [place] [address] Laboratory Medicine and Pathology [address] [place] [address] Dr. [place] Vitamin B6 Profile (PLP and PA) (09/28/2021 7:31 AM CDT) athologist Signature Pyridoxal 32 5 - 50 09/29/2021 [facility] 5-Phosphate mcg/L 3:54 PM CDT (PLP), P Comment: ----ADDITIONAL INFORMATION---- This test was developed and its performa nce characteristics determined by [facility] in a manner consistent with CLIA requirements. This test has not been cleared or approved by the [place] and Drug Administration. Pyridoxic Acid (PA), P 8 3 - 30 mcg/L 09/29/2021 3:5 4 PM CDT [facility] Comment: ----ADDITIONAL INFORMATION---- This test was developed and its performa nce characteristics determined by [facility] in a manner consistent with CLIA requirements. [...] Organization Address City/State/ZIP Code Phon e Number [facility] [address] [place] [address] [facility] [address] Laboratory Medicine and Pathology [address] [place] [address] Dr. [place] documented in this encounter Visit Diagnoses Diagnosis Neuropathy documented in this encounter Care Teams Dip Unit Operator Relationship Specialty Start Date End Date Elsewhere, Pcp PCP - General Internal Medicine 09/26/21 documented as of this encounter
--- NOTE | 2022-01-10 15:00 | CRLHL7_ITS ---
For Patients: As a result of the Century Cures Act, medical imaging exams and procedure reports are released immediately into your electronic medical record. You may view this report before your referring provider. If you have questions, please contact your health care provider. DUPLEX ARTERIAL ULTRASOUND BILATERAL LOWER EXTREMITY 01/10/2022 CLINICAL HISTORY: Painful feet. COMPARISON: None. TECHNIQUE: The lower extremity arteries were examined per exam specific protocol with hernandez-scale ultrasound, color-flow and Doppler spectral analysis. Peak systolic velocities (PSV), Doppler waveform quality and velocity ratios, if applicable, were documented at sites per exam specific protocol. FINDINGS: There are predominantly multiphasic waveforms in the bilateral lower extremities except for the right AUREA which is monophasic. The velocities in the bilateral common femoral arteries are mildly elevated which may represent a less than 50 percent stenosis; however, there is no elevated velocity ratio to suggest a hemodynamically significant arterial stenosis in the bilateral lower extremities. LOWER EXTREMITY DUPLEX DOPPLER RIGHT: PSV WAVEFORM DEVELOPMENT DISABILITY SPECIALIST: 176 T DFA: 101 T FA PRX: 110 B FA MID: 102 T FA DIST: 108 B POP A: 68 B CYNTHIA A: 76 B FORM SETTER HELPER: 94 B AUREA: 35 M DPA: 65 B LEFT: PSV WAVEFORM DEVELOPMENT DISABILITY SPECIALIST: 167 T DFA: 118 T FA PRX: 131 T FA MID: 126 T FA DIST: 93 B POP A: 63 B CYNTHIA A: 87 B FORM SETTER HELPER: 92 B AUREA: 103 B DPA: 99 B IMPRESSION: 1. Right lower extremity: - Predominantly multiphasic waveforms in the arterial vasculature except for the AUREA which is monophasic. - Mildly elevated velocities in the common femoral artery may represent a less than 50% stenosis; however, there is no elevated velocity ratio to suggest a hemodynamically significant arterial stenosis. 2. Left lower extremity: - Multiphasic waveforms of the arterial vasculature. - Mildly elevated velocities in the common femoral artery may represent a less than 50% stenosis; however, there is no elevated velocity ratio to suggest a hemodynamically significant arterial stenosis. Kevin Parra M.D. Vascular and Interventional Radiology [email or web address] GRIS/asim be/Dictated by: Kevin Parra MD @ 01/10/2022 8:31:00 PM (Electronically Signed)
== END 2022-01-10 14:43 | disposition home or self-care (01) ==
PROVIDERS: PCP Family Medicine; Visit Provider Family Medicine
DX: M79.672 Pain in left foot (principal); M79.671 Pain in right foot; I70.203 Unspecified atherosclerosis of native arteries of extremities, bilateral legs
CPT/HCPCS: 93926

== ENCOUNTER 2022-01-10 17:06 | Outpatient (CLI) | payer MEDICARE, SELFPAY ==
--- OUTSIDE RECORDS SUMMARY | 2022-01-10 13:59 | XMS_ITS | Encounter Summary ---
:1945 Author Organization [facility] Address [address] [place] [address] Care Team Providers Name Role Phone Elsewhere, Pcp Primary Care Provider Unavailable Reason for Visit Outpatient (Routine) - Closed Specialty Diagnoses / Procedures Referred By Contact Refer red To Contact Diagnoses Neuropathy Iban Flores M.D. [facility] Procedures Quantitative sensory test (QST) [address] [place] [address] Referral ID Status Reason Start Date Expiration Date Visits Requ ested Visits Authorized [id number] Closed 09/27/2021 09/27/2022 1 1 Encounter Details Date Type Department Care Team Description 09/28/2021 Diagnostic Department of Neurology in [place] Flores, Neuropathy [place], [place] Yenifer [address] [facility] [address] [place] [address] [place] [address] [phone] (Wo rk) 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 Tobacco Use Types Packs/Day Years Used Date Smoking Tobacco: Never Smokeless Tobacco: Never Alcohol Use Standard Drinks/Week Comments Yes 2 (1 standard drink = 0.6 oz pure alcoho l) Alcohol Habits Answer Date Recorded How often do you have a drink containing alcohol? 2-4 times a month 09/22/2021 How many drinks containing alcohol do you have on a 1 or 2 09/22/2021 typical day when you are drinking? How often do you have six or more drinks on one Never 09/22/2021 occasion? Comment: Not asked Social Isolation Answer Date Recorded In a typical week, how many times do you More than three kay es a week 09/22/2021 talk on the phone with family, friends, or neighbors? How often do you get together with friends More than three t imes a week 09/22/2021 or relatives? How often do you attend christianity or Never 2021 temple services? Do you belong to any clubs or No 09/22/2021 organizations such as christianity groups, unions, fraternal or athletic groups, or school groups? How often do you attend meetings of the Never 09/22/2021 clubs or organizations you belong to? Are you now , , , 09/22/2021 , never or living with a partner? Physical Activity Answer Date Recorded On average, how many days per week do you engage in moderate to 0 days 09/22/2021 strenuous exercise (like walking fast, running, jogging, dancing, swimming, biking, or other activities that cause a light or heavy sweat)? On average, how many minutes do you engage in exercise at th is 0 min 09/22/2021 level? Stress Answer Date Recorded Do you feel stress - tense, restless, nervous, or To some ex tent 09/22/2021 anxious, or unable to sleep at night because your mind is troubled all the time - these days? Financial Resource Strain Answer Date Recorded How hard is it for you to pay for the very basics like Not h nikita at all 09/22/2021 food, housing, medical care, and heating? Intimate Partner Violence Answer Date Recorded Within the last year, have you been afraid of your partner o r No 09/22/2021 ex-partner? Within the last year, have you been humiliated or emotionall y No 09/22/2021 abused in other ways by your partner or ex-partner? Within the last year, have you been kicked, hit, slapped, or No 09/22/2021 otherwise physically hurt by your partner or ex-partner? Within the last year, have you been raped or forced to have any No 09/22/2021 kind of sexual activity by your partner or ex-partner? Food Insecurity Answer Date Recorded Within the past 12 months, you worried that your food would Never true 09/22/2021 run out before you got money to buy more. Within the past 12 months, the food you bought just didn't N ever true 09/22/2021 last and you didn't have money to get more. Transportation Needs Answer Date Recorded In the past 12 months, has lack of transportation kept you f rom No 09/22/2021 medical appointments or from getting medications? In the past 12 months, has lack of transportation kept you f rom No 09/22/2021 meetings, work, or getting things needed for daily living? Housing Stability Answer Date Recorded In the last 12 months, was there a time when you were not ab le No 09/22/2021 to pay the mortgage or rent on time? In the last 12 months, how many places have you lived? 1 09/22/2021 In the last 12 months, was there a time when you did not hav e a No 09/22/[address] to sleep or slept in a fpc (including now)? Education Answer Date Recorded What is the highest level of school you have Some college, n o degree 09/22/2021 completed or the highest degree you have received? Sex Assigned at Date Recorded Female 09/22/2021 7:06 AM CDT documented as of this encounter Plan of Treatment Not on filedocumented as of this encounter Procedures Procedure Name Priority Date/Time Associated Comments Diagnosis QUANTITATIVE SENSORY Routine 09/28/2021 10:43 Neuropathy Res ults for this TEST (QST) AM CDT procedure are i n the results section. documented in this encounter Results Quantitative sensory test (QST) (09/28/2021 10:43 AM CDT) Specimen (Source) Anatomical Location Collection Method / Collectio n Time Received Time / Laterality Volume Narrative MMODAL - 10/16/2021 2:51 PM CDT Images from the original result were not included. Interpretation of QST Results: This is an abnormal study. The threshold to heat as pain is elevated in the left foot. The thresholds to touch p ressure, vibration, and cooling are normal in the left foot. These findi ngs suggest an abnormality of the unmyelinated sensory fibers serving the left limb. Iban Flores M.D. NEUROLOGY ORDERABLES Performing Organization Address City/State/ZIP Code Phon e Number MMODAL MMODAL NA documented in this encounter Visit Diagnoses Diagnosis Neuropathy documented in this encounter Care Teams Sheep Clipper Relationship Specialty Start Date End Date Elsewhere, Pcp PCP - General Internal Medicine 09/26/21 documented as of this encounter
--- OUTSIDE RECORDS SUMMARY | 2022-01-10 13:59 | XMS_ITS | Encounter Summary ---
:1945 Author Organization [facility] Address [address] [place] [address] Care Team Providers Name Role Phone Elsewhere, Pcp Primary Care Provider Unavailable Reason for Referral Outpatient (Routine) - Closed Specialty Diagnoses / Procedures Referred By Contact Refer red To Contact Diagnoses Neuropathy Iban Flores M.D. [facility] Procedures Autonomic reflex Screen [address] [place] [address] Referral ID Status Reason Start Date Expiration Date Visits Requ ested Visits Authorized [id number] Closed 09/27/2021 09/27/2022 1 1 Reason for Visit Outpatient (Routine) - Closed Specialty Diagnoses / Procedures Referred By Contact Refer red To Contact Diagnoses Neuropathy Iban Flores M.D. [facility] Procedures Autonomic reflex Screen [address] [place] [address] Referral ID Status Reason Start Date Expiration Date Visits Requ ested Visits Authorized [id number] Closed 09/27/2021 09/27/2022 1 1 Encounter Details Date Type Department Care Team Description 10/03/2021 Hospital Encounter Department of Neurology Iban Flores Neuropathy in [facility] ollie Doll M.D. [address] [facility] [address] [place] [phone] (Wo rk) 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 Tobacco Use Types [...] or relatives? How often do you attend rastafari or Never 2021 buddhism services? Do you belong to any clubs or No 09/22/2021 organizations such as rastafari groups, unions, fraternal or athletic groups, or [...] place to sleep or slept in a longterm (including now)? Education Answer Date Recorded What is the highest level of school you have Some college, n o degree 09/22/2021 completed or the highest degree you have received? Sex Assigned at Date Recorded Female 09/22/2021 7:06 AM CDT documented as of this encounter Medications at Time of Discharge Medication Sig Dispensed Refills Start Date End Date aspirin 81 mg chewable Chew 81 mg daily. 0 2017 tablet chlorthalidone (HYGROTON) Take 12.5 mg by 0 25 mg tablet mouth daily. cyanocobalamin (VITAMIN Take 1 tablet by 0 2017 B12) 1,000 mcg tablet mouth daily. diphenhydrAMINE-acetaminoph Take 0.5 tablets by 0 en (TYLENOL PM) 25-500 mg mouth at bedtime as per tablet needed for sleep. DULoxetine (CYMBALTA) 30 mg Take 1 capsule by 0 0 06/27/2021 DR capsule mouth daily. inulin (FIBER GUMMIES ORAL) as needed. 0 metoprolol tartrate Take 1 tablet by 0 07/10/2017 (LOPRESSOR) 50 mg tablet mouth 2 (two) times a day. multivitamin tablet Take 1 tablet by 0 07/10/2017 mouth daily. omeprazole (PriLOSEC) 20 mg Take 1 capsule by 0 1 04/10/2019 DR capsule mouth once a week. simvastatin (ZOCOR) 20 mg Take 1 tablet by 0 06/30 tablet mouth daily. documented as of this encounter Plan of Treatment Not on filedocumented as of this encounter Procedures Procedure Name Priority Date/Time Associated Diagnosis Comme nts AUTONOMIC REFLEX Routine 10/03/2021 8:35 AM Neuropathy Resul ts for this SCREEN CDT procedure are i n the results section. documented in this encounter Results Autonomic reflex Screen (10/03/2021 8:35 AM CDT) Specimen (Source) Anatomical Collection Method Collection Time Re ceived Time Location / / Volume Laterality 10/03/2021 7:45 AM CDT Narrative [facility] - 10/03/2021 10:02 AM CDT FINAL ? REPORT ? AUTONOMIC REFLEX SCREEN ? [phone] ? A ge: 76 ?Location: [facility] ? Lab #: [id number] Apolonia William ? S ex: F ? Order ID: ??[id number] ? Date: 10/03/2021 : 1945 Autonomic Irrigation Tax Assessor Collector: Destiney Jara M.D. ([id number]) ?CONCLUSION Abnormal study. There is evidence of mil d to moderately severe cardiovagal impairment while postganglionic sympathe tic sudomotor and cardiovascular adrenergic function is preserved. Medica tion effects (metoprolol) are likely influencing the results although a limited autonomic neuropathy cannot be excluded. ?QUANTITATIVE AXON REFLEX SWEAT TEST (QSWEAT) ?Test ? Latency ??Sweat Output ??Sweat Output Normal Cutoff Side ?Site ? Current ?? Dura tion ? (min) ?(uL) ?5th (10th) Percentile ? (mA) ? (min) ? L ? Forearm ? 2 ?10 ? 2.1 ? 0.65 ? F: ?? 0.08 (0.13) L ? Proximal Leg ?2 ?10 ? 1.6 ? 0.37 ? F: ?? 0.19 (0.31) L ? Distal Leg ?2 ?10 ? 1.8 ? 0.21 ? F: ?? 0.14 (0.23) L ? Foot ?2 ?10 ? 1.5 ? 1.04 ? F: ?? 0.07 (0.14) Comments on Sudomotor Test: QSART respon ses were normal at all sites. ?DEEP BREATHING & VALSALVA MANEUVER RESPONSES ?Result ? Normal Cutoff Deep Breathing ?Heart Rate Range (bpm) ? 3.7 ? > 7 Valsalva Maneuver ? Valsalv a Ratio ? 1.27 ? > 1.39 Comments on Deep Breathing: ??Heart rate responses to deep breathing were reduced. Comments on Valsalva maneuver: (A) Heart rate responses to the Valsalva maneuver were reduced. (B) Zysy-hh-[id number] blood pressure response s to the Valsalva maneuver were essentially normal. ?B LOOD PRESSURE AND HEART RATE RESPONSES TO TILT ? BP (mmHg) ?Heart Rate (BPM) ?Supine ? 146/80 ? 54 ?Tilt 1 min ? 130/84 ? 65 ?Tilt 2 min ? 132/82 ? 64 ?Tilt 3 min ? 128/78 ? 61 ?Tilt 5 min ? 134/80 ? 65 Comments on Tilt: Patient was tilted for 5 minutes. Orthostatic hypotension was not detected. Heart rate response was normal. The patient reported no symptoms. -99 = missing value ?? Iban Flores M.D. NEUROLOGY ORDERABLES Performing Organization Address City/State/ZIP Code Phon e Number [facility] documented in this encounter Visit Diagnoses Diagnosis Neuropathy documented in this encounter Care Teams Material Flow Engineer Relationship Specialty Start Date End Date Elsewhere, Pcp PCP - General Internal Medicine 09/26/21 documented as of this encounter
--- OUTSIDE RECORDS SUMMARY | 2022-01-10 13:59 | XMS_ITS | Clinical Summary ---
:1945 Author Organization [facility] Address [address] [place] [address] Care Team Providers Name Role Phone Elsewhere, Pcp Primary Care Provider Unavailable Source Comments Patient records contain information from all sites at [facility]. For routine questions regarding patient records, call [phone] during business hours, M-F 8:00 AM - 5:00 PM Central Time. Record requests for emergency care only can be directed to [phone] at any time.[facility] Allergies Active Allergy Reactions Severity Noted Date Comments Adhesive Tape-Silicones Other (see comments) 8 Medications Medication Sig Dispensed Refills Start Date End Date Status aspirin 81 mg chewable Chew 81 mg 0 07/10/2017 Active tablet daily. cyanocobalamin (VITAMIN Take 1 tablet by 0 8 Active B12) 1,000 mcg tablet mouth daily. DULoxetine (CYMBALTA) 30 Take 1 capsule 0 06/27/[address] capsule by mouth daily. metoprolol tartrate Take 1 tablet by 0 07/10/2017 Active (LOPRESSOR) 50 mg tablet mouth 2 (two) times a day. multivitamin tablet Take 1 tablet by 0 07/10/2017 Active mouth daily. simvastatin (ZOCOR) 20 Take 1 tablet by 0 07/10/2017 Active mg tablet mouth daily. omeprazole (PriLOSEC) 20 Take 1 capsule 0 02/09/[address] capsule by mouth once a week. inulin (FIBER GUMMIES as needed. 0 Active ORAL) chlorthalidone Take 12.5 mg by 0 Active (HYGROTON) 25 mg tablet mouth daily. diphenhydrAMINE-acetamin Take 0.5 tablets 0 Active ophen (TYLENOL PM) by mouth at 25-500 mg per tablet bedtime as needed for sleep. Encounters Date Type Specialty Care Team Description 11/23/2021 Telemedicine Neurology Iban Flores, Jordana y Osteoarthritis Knee M.D. Bilateral (Prim fabiola Dx) from Last 3 Months Family History Medical History Relation Name Comments Hypertension Father W L Prostate cancer Father W L Relation Name Status Comments Father W L 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 Tobacco Use Types Packs/Day Years [...] or relatives? How often do you attend judaism or Never 2021 evangelical services? Do you belong to any clubs or No 09/22/2021 organizations such as judaism groups, unions, fraternal or athletic groups, or [...] place to sleep or slept in a correction (including now)? Education Answer Date Recorded What is the highest level of school you have Some college, n o degree 09/22/2021 completed or the highest degree you have received? Sex Assigned at Date Recorded Female 09/22/2021 7:06 AM CDT Last Filed Vital Signs Vital Sign Reading Time Taken Comments Blood Pressure - - Pulse - - Temperature 36.5 ??C (97.7 ??F) 09/26/2021 3:10 PM CDT Respiratory Rate - - Oxygen Saturation - - Inhaled Oxygen Concentration - - Weight 88.8 kg (195 lb 12.3 oz) 09/26/2021 3:10 PM CDT Height 171 cm (5' 7.32) 09/26/2021 3:10 PM CDT Body Mass Index 30.37 09/26/2021 3:10 PM CDT Plan of Treatment Health Maintenance Due Date Last Done Comments Bone Density Scan (Osteoporosis 1945 Screen) CT Colonography 1945 Cologuard 1945 Colonoscopy 1945 Colorectal Cancer Surveillance 1945 Creatinine Level 1945 Hepatitis C Screening 1945 Mammogram 1945 Potassium Level 1945 Sodium Level 1945 Zoster Vaccines (1 of 2) 1997 Depression Screening (Annual 04/01/2021 PHQ-2) Fall Risk Screen (Annual) 04/01/2021 COVID-19 Vaccine (5 - Booster for 08/31/2021 07/06/2021, , Pfizer series) 06/07/2020, Additional history exists Influenza Vaccine (#1) 2021 01/12/2020, 01/06/2019 Fasting Glucose for Diabetes 09/28/2024 09/28/2021 Screening DTaP,Tdap,and Td Vaccines (2 - Td 08/10/2030 08/10/2020 or Tdap) Pneumococcal vaccine (65+ years) Completed 08/14/2021, 04/2018 Medical Devices Implanted Type Area Tile Roofer Device Shelf Model / Identifier Expiration Serial / Date Lot Hardware E.G. Hardware Right: Pins/Screws/R e.g. Wrist ods pins/screws/ rods Description: Titanium plate Insurance Payer Benefit Plan / Subscriber ID Effective Dates Phone Addre ss Type Group MEDICARE MEDICARE A AND [id number] 2012-Prese [address] Medicare B nt [place] [phone] AARP AARP [id number] 2021-Presen [phone] [id number] [place] [address] Care Teams Iron Setter Relationship Specialty Start Date End Date Elsewhere, Pcp PCP - General Internal Medicine 09/26/21
--- OUTSIDE RECORDS SUMMARY | 2022-01-10 13:59 | XMS_ITS | Encounter Summary ---
:1945 Author Organization [facility] Address [address] [place] [address] Care Team Providers Name Role Phone Elsewhere, Pcp Primary Care Provider Unavailable Reason for Referral Outpatient (Routine) - Closed Specialty Diagnoses / Procedures Referred By Contact Refer red To Contact Diagnoses Neuropathy Antonio Flores M.D. [facility] Procedures EMG [address] [place] [address] Referral ID Status Reason Start Date Expiration Date Visits Requ ested Visits Authorized [id number] Closed 09/27/2021 09/27/2022 1 1 Reason for Visit Outpatient (Routine) - Closed Specialty Diagnoses / Procedures Referred By Contact Refer red To Contact Diagnoses Neuropathy Antonio Flores M.D. [facility] Procedures EMG [address] [place] [address] Referral ID Status Reason Start Date Expiration Date Visits Requ ested Visits Authorized [id number] Closed 09/27/2021 09/27/2022 1 1 Encounter Details Date Type Department Care Team Description 10/03/2021 Hospital Encounter Department of Neurology Antonio Flores Neuropathy in [facility] ollie Doll M.D. [address] [place] [phone] (Wo rk) 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 Tobacco Use Types [...] or relatives? How often do you attend sabianism or Never 2021 christianity services? Do you belong to any clubs or No 09/22/2021 organizations such as sabianism groups, unions, fraternal or athletic groups, or [...] place to sleep or slept in a custodial (including now)? Education Answer Date Recorded What [...] Name Priority Date/Time Associated Diagnosis Comme nts EMG Routine 10/03/2021 8:37 AM Neuropathy Results f or this CDT procedure are i n the results section . documented in this encounter Results EMG (10/03/2021 8:37 AM CDT) Specimen (Source) Anatomical Collection Method Collection Time Re ceived Time Location / / Volume Laterality 10/03/2021 12:30 PM CDT Narrative [facility] - 10/03/2021 10:01 AM CDT 03-Oct-2021 ? Electromyography ? Final Report Study Number: 1 EMG Material Handler: Jimmy Abdi. 127 o r [id number] Referred by: ANTONIO FLORES (127 o r ([phone]) Referred for: Peripheral Neuropathy Referral Code: ?200 RX: 001 SUMMARY: Prior to starting the procedure , the patient's identity was verified, pertinent available records were reviewed, the nature of the procedure was explained, the appropriate sites of the exam were confirmed directly with the nii tiestan, and a pre-procedure pause was performed for final verification of all of the above. ?? The nerve conduction studies of the left upper and lower limbs are normal. Needle examination the left lower limb i s normal. CLINICAL INTERPRETATION: The EMG study i s normal. ??There is no electrophysiological evidence a length-dependent sensorimotor neuropathy . Joy Abdi (127 or [phone])/[facility] NERVE CONDUCTIONS ??Record Rep ?? Normal ??Normal Distal Normal F-Wave F-Wave Temp Nerve Type Site Stim Side Amp Amp CV CV Lat Lat Lat Est (??C) Fibular Motor EDB ??L 8.7 (> 2.0) 44 (> 41) 4.3 (< 6.6) 53.4 50.7 36.3 Tibial Motor AH ??L 12.9 (> 4.0) 44 (> 4 0) 3.8 (< 6.1) 55.2 50.4 32.1 Sural Sensory Ankle ??L 5 (> 0.0) 43 (> 40) 3.8 (< 4.5) ?? 31.5 Ulnar Motor ADM ??L 7.5 (> 6.0) 53 (> 51 ) 2.6 (< 3.6) 30.9 27.3 33.7 Median Sensory Dig II ??L 26 (> 15.0) 63 (> 56) 3.0 (< 3.6) ?? 32.1 NEEDLE EMG ??Ins Spont ??MUP ??Recruitment ??Durat ion ??Amplitude ??Phases ?? Muscle Side Act Fib Fasc Normal Activ Re duced Rapid Long Short High Low % Turns Tensor fasciae latae L NL 0 0 NL ? Vastus medialis L NL 0 0 NL ? Gastrocnemius (medial head) L NL 0 0 NL ? Tibialis anterior L NL 0 0 NL ? Abductor hallucis L NL 0 0 NL ? This interpretation has been electron ically signed: Jimmy Abdi MD at 10/03/2021 10:00:13 AM CDT Procedure Note Jimmy Abdi M.D. - 10/03/2021Form atting of this note is different from the original. 03-Oct-2021 Electromyography Final Repor t Study Number: 1 EMG Material Handler: Jimmy Abdi. 127 o r [phone] Referred by: ANTONIO FLORES (127 o r [phone]) Referred for: Peripheral Neuropathy Referral Code: 200 RX: 001 SUMMARY: Prior to starting the procedure , the patient's identity was verified, pertinent available records were reviewed, the nature of the procedure was explained, the appropriate sites of the exam were confirmed directly with the pa tient, and a pre-procedure pause was performed for final verification of all of the above. The nerve conduction studies of the left upper and lower limbs are normal. Needle examination the left lower limb i s normal. CLINICAL INTERPRETATION: The EMG study i s normal. There is no electrophysiological evidence a length-dependent sensorimotor neuropathy . Joy Abdi (127 or [phone])/[facility] NERVE CONDUCTIONS Record Rep Normal Normal Distal Normal F-Wave F-Wave Temp Nerve Type Site Stim Side Amp Amp CV CV Lat Lat Lat Est (??C) Fibular Motor EDB L 8.7 (> 2.0) 44 (> 41 ) 4.3 (< 6.6) 53.4 50.7 36.3 Tibial Motor AH L 12.9 (> 4.0) 44 (> 40) 3.8 (< 6.1) 55.2 50.4 32.1 Sural Sensory Ankle L 5 (> 0.0) 43 (> 40 ) 3.8 (< 4.5) 31.5 Ulnar Motor ADM L 7.5 (> 6.0) 53 (> 51) 2.6 (< 3.6) 30.9 27.3 33.7 Median Sensory Dig II L 26 (> 15.0) 63 ( > 56) 3.0 (< 3.6) 32.1 NEEDLE EMG Ins Spont MUP Recruitment Duration Ampl itude Phases Muscle Side Act Fib Fasc Normal Activ Re duced Rapid Long Short High Low % Turns Tensor fasciae latae L NL 0 0 NL Vastus medialis L NL 0 0 NL Gastrocnemius (medial head) L NL 0 0 NL Tibialis anterior L NL 0 0 NL Abductor hallucis L NL 0 0 NL This interpretation has been electron ically signed: Jimmy Abdi MD at 10/03/2021 10:00:13 AM CDT Antonio Flores M.D. NEUROLOGY ORDERABLES Performing Organization Address City/State/ZIP Code Phon e Number [facility] documented in this encounter Visit Diagnoses Diagnosis Neuropathy documented in this encounter Care Teams Oil Field Equipment Mechanic Relationship Specialty Start Date End Date Elsewhere, Pcp PCP - General Internal Medicine 09/26/21 documented as of this encounter
--- OUTSIDE RECORDS SUMMARY | 2022-01-10 13:59 | XMS_ITS | Encounter Summary ---
:1945 Author Organization [facility] Address [address] [place] [id number] Care Team Providers Name Role Phone Elsewhere, Pcp Primary Care Provider Unavailable Reason for Referral Outpatient (Routine) - Authorized Specialty Diagnoses / Procedures Referred By Contact Refer red To Contact Diagnoses Primary Osteoarthritis [facility]nee [facility] Knee Bilateral Standing 2 Views M.D. [address] [place] [phone] Referral ID Status Reason Start Date Expiration Date Visits V isits Requested Authorized [id number] Authorized 11/23/2021 11/23/2022 1 1 Outpatient (Routine) - Authorized Specialty Diagnoses / Procedures Referred By Referred To Contact Contact Physical Medicine and Diagnoses Primary Osteoarthritis Knee Bilateral Iban Flores [facility] Meka Doll M.D. [address] [place] [phone] Referral ID Status Reason Start Date Expiration Date Visits V isits Requested Authorized [id number] Authorized 11/23/2021 11/23/2022 1 1 Scheduling Instructions Please schedule if possible just before PM&R evaluation Reason for Visit Outpatient (Routine) - Closed Specialty Diagnoses / Procedures Referred By Contact Refer red To Contact Neurology Edgar Armstrong M.D. [facility] [address] [place] [phone] Referral ID Status Reason Start Date Expiration Date Visits Requ ested Visits Authorized [id number] Closed 09/26/2021 09/26/2022 1 1 Encounter Details Date Type Department Care Team Description 11/23/2021 Telemedicine Department of [facility], Primary Osteoa rthritis Neurology in Iban Doll M.D. Knee Bilateral (Primary [place], [place] [address] [facility]) [address] [place] [phone] 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 Tobacco Use Types Packs/Day Years [...] or relatives? How often do you attend anabaptism or Never 2021 anglican services? Do you belong to any clubs or No 09/22/2021 organizations such as anabaptism groups, unions, fraternal or athletic groups, or [...] AM CDT documented as of this encounter Progress Notes Iban Flores M.D. - 11/23/2021 9:30 AM CDT This was a video visit with Ms. William who I initially saw with Dr. Armstrong at the end of August. She had approximately 10 years of discomfort in her feet that was suggestive of small fiber peripheral neuropathy. We had ordered laboratory studies including nerve conduction and EMG and quantitative autonomic testing which were completed and essentially normal. Quantitative sensory testing showed decreased temperature perception in the left lower limb compatible with a small fiber peripheral neuropathy.Laboratory studies were essentially unremarkable except for borderline elevation of hemoglobin A1c at 5.8%. Ms. William and her primary physician have been aware of this and are keeping an eye on it. The overall laboratory and clinical findings therefore suggest that she has a small fiber peripheralneuropathy with very minimal permanent nerve damage that has been indolently progressive for 10 years. We discussed that this is a very benign process that will not progress to severe loss of function,or put her in a wheelchair. We discussed that this is a significant annoyance but not something thatwill lead to long-term disability. Ms. William wondered whether this had anything to do with her knee problems because the symptoms began at about same time as she had arthroscopic surgery in 2012 on her left knee. This was done to repair a damaged meniscus. She continues to have a lot of problem with stiffness in both knees. She cannot fully bend them to squat or kneel down and has trouble getting up from a squatting or kneeling position because her knees feel so stiff. I reassured her that this problem with her knees was not related to her neuropathy problem but that it probably could be helped. Initially it is most likely that this could be helped with physical therapy directed towards strengthening her leg muscles and increasing her knee flexibility. Unfortunately, with age, limb joints do become more stiff, especially in the legs. As a first step I will put in areferral to colleagues in Physical Medicine and Rehabilitation who specialize in musculoskeletal rehabilitation. From the neuropathy point of view I will arrange to see her in 1 years time with a thermoregulatory sweat test. This will help us quantify and follow the neuropathy going forward. I would suspect in the next year there would be little change. Final diagnosis 1. Small fiber peripheral neuropathy 2. Probable degenerative joint disease of both knees documented in this encounter Plan of Treatment Scheduled Orders Name Type Priority Associated Diagnoses Order S chedule DX Knee Bilateral Imaging RAD - Routine (most Primary Osteoart hritis Expected: Standing 2 Views inpatients and all Knee Bilateral outpatients) (Approximate), Expires: 02/23/2023 Scheduled Referrals Name Type Priority Associated Diagnoses Order S chedule Physical Medicine and Outpatient Routine Primary Expect ed: Rehabilitation - Referral Osteoarthritis Knee 10/31 General consult Bilateral (Approximate ), (clinic) Expires: 02/23/2023 documented as of this encounter Visit Diagnoses Diagnosis Primary Osteoarthritis Knee Bilateral - Primary documented in this encounter Care Teams Affirmative Action Specialist Relationship Specialty Start Date End Date Elsewhere, Pcp PCP - General Internal Medicine 09/26/21 documented as of this encounter
--- OUTSIDE RECORDS SUMMARY | 2022-01-10 14:00 | XMS_ITS | Encounter Summary ---
:1945 Author Organization [facility] Address [address] [place] [address] Care Team Providers Name Role Phone Elsewhere, Pcp Primary Care Provider Unavailable Reason for Visit Outpatient (Routine) - Closed Specialty Diagnoses / Procedures Referred By Contact Refer red To Contact Diagnoses Neuropathy Edgar Armstrong M.D. [facility] Procedures Fat Aspirate [address] [place] [address] Referral ID Status Reason Start Date Expiration Date Visits Requ ested Visits Authorized [id number] Closed 09/26/2021 09/26/2022 1 1 Encounter Details Date Type Department Care Team Description 09/28/2021 Infusion Department of Infusion Therapy Edgar Armstrong, Neuropathy in [facility] [address] [facility] [address] [place] [phone] [place], [place] [phone] (Wo rk) 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 Tobacco Use Types [...] or relatives? How often do you attend mormon or Never 2021 protestant services? Do you belong to any clubs or No 09/22/2021 organizations such as mormon groups, unions, fraternal or athletic groups, or [...] place to sleep or slept in a prison (including now)? Education Answer Date Recorded What is the highest level of school you have Some college, n o degree 09/22/2021 completed or the highest degree you have received? Sex Assigned at Date Recorded Female 09/22/2021 7:06 AM CDT documented as of this encounter Procedure Notes Ruthie Munoz R.N. - 09/28/2021 8:00 AM CDTAssociated Order(s): Fat Aspirate Pre-Procedure Diagnose(s): Neuropathy Post-Procedure Diagnose(s): Neuropathy Fat Aspirate Date/Time: 09/28/2021 8:00 AM Performed by: Ruthie Munoz R.N. Authorized by: Edgar Armstrong M.D. Care team members present 1. Ruthie Munoz R.N. PROCEDURE DETAILS Procedure: Fat aspirate Fat aspirate Location: Right abdominal wall Needle size (gauge): 18 Aspirate volume (mL): 0.5 CONSENT Consent obtained: written UNIVERSAL PROTOCOL All relevant documentation and testing were reviewed and available. All required blood products, implants, devices and or special equipment were made available as applicable. Pre-procedure verificationwas conducted and the correct site was marked if required. A fire risk assessment was done as applicable. The procedural time-out to verify correct patient, correct side/site, and procedure was conducted prior to performing the procedure and confirmed in a procedural pause. PRE-PROCEDURE DETAILS Appropriate hand hygiene, gown, cap, mask, protective eyewear, sterile gloves, skin preparation, sterile drape, and strict aseptic technique were utilized as applicable for the procedure.: yes Site preparation: alcohol SEDATION / ANESTHESIA Anesthesia method: local infiltration Local infiltrate type: lidocaine POST-PROCEDURE DETAILS Procedure completed successfully: yes Procedure tolorated: Well Post procedure pain scale: 0/10 Complications: no apparent complications Post-procedure instructions: Post-procedure activity instructions provided documented in this encounter Plan of Treatment Not on filedocumented as of this encounter Procedures Procedure Name Priority Date/Time Associated Comments Diagnosis HC FNA BX WO IMG 1ST Routine 09/28/2021 8:00 AM Neuropathy R esults for this LESION CDT procedure are i n the results section. GA FNA BX WO IMG 1ST Routine 09/28/2021 8:00 AM Neuropathy R esults for this LESION CDT procedure are i n the results section. SUBCUTANEOUS FAT Routine 09/28/2021 5:24 AM Resul ts for this ASPIRATE CDT procedure are i n the results section. documented in this encounter Results GA FNA BX WO IMG 1ST LESION, HC FNA BX WO IMG 1ST LESION (09/28/2021 8:00 AM CDT) Narrative Ruthie Munoz R.N. - 09/28/2021 8:00 AM CDT Ruthie Munoz R.N. ? 09/28/2021 ??8:00 AM Fat Aspirate Date/Time: 09/28/2021 8:00 AM Performed by: Ruthie Munoz R.N. Authorized by: Edgar Armstrong M.D . Care team members present 1. Ruthie Munoz R.N. PROCEDURE DETAILS Procedure: ??Fat aspirate Fat aspirate Location: ??Right abdominal wall Needle size (gauge): ??18 Aspirate volume (mL): ??0.5 CONSENT Consent obtained: written UNIVERSAL PROTOCOL All relevant documentation and testing w ere reviewed and available. All required blood products, implants, devic es and or special equipment were made available as applicable. Pre-proced ure verification was conducted and the correct site was marked if required. A fire risk assessment was done as applicable. The procedural time-out t o verify correct patient, correct side/site, and procedure was conducted p rior to performing the procedure and confirmed in a procedural pause. PRE-PROCEDURE DETAILS Appropriate hand hygiene, gown, cap, mas k, protective eyewear, sterile gloves, skin preparation, sterile drape, and strict aseptic technique were utilized as applicable for the procedure .: yes ?? Site preparation: alcohol SEDATION / ANESTHESIA Anesthesia method: local infiltration Local infiltrate type: lidocaine POST-PROCEDURE DETAILS Procedure completed successfully: yes ?? Procedure tolorated: ??Well Post procedure pain scale: ??0/10 Complications: no apparent complications ?? Post-procedure instructions: ??Post-proc edure activity instructions provided Edgar Armstrong M.D. PROCEDURE/MINOR SURGICAL ORD ERABLES Subcutaneous Fat Aspirate (09/28/2021 5:24 AM CDT) Component Value Ref Test Analysis Performed At [facility] Method Time Signature 09/29/2021 [facility] 12:56 PM CDT Report Sergio French M.D. 09/29/2021 [facility] electronically 12:56 PM signed by CDT I verify that I have examined all relevant slides/materials for the specimen(s) and rendered or confirmed the diagnosis. Gross Description The subcutaneous fat aspirate used for diagnostic purposes 09/29/2021 [facility] consists of 0.5 mL fat. 12:56 PM CDT Interpretation FINAL DIAGNOSIS 09/29/2021 [facility] [place] red stain, abdominal subcutaneous fat aspirate 12:56 PM specimen: Amyloid is absent. CDT Specimen Anatomical Collection Method Collection Time Receive d Time (Source) Location / / Volume Laterality Varies 09/28/2021 5:24 AM 5:24 CDT AM CDT Narrative This result has an attachment that is no t available. Edgar Amrstrong M.D. LAB PATHOLOGY/CYTOLOGY ORDER [place] Performing Organization Address City/State/ZIP Code Phon e Number [facility] - [address] [place], [place] [address] [place] [address] [facility] [address] documented in this encounter Visit Diagnoses Diagnosis Neuropathy documented in this encounter Care Teams Rental Manager Relationship Specialty Start Date End Date Elsewhere, Pcp PCP - General Internal Medicine 09/26/21 documented as of this encounter
--- OUTSIDE RECORDS SUMMARY | 2022-01-10 14:00 | XMS_ITS | Encounter Summary ---
:1945 Author Organization [facility] Address [address] [place] [address] Care Team Providers Name Role Phone Elsewhere, Pcp Primary Care Provider Unavailable Reason for Referral Outpatient (Routine) - Closed Specialty Diagnoses / Procedures Referred By Contact Refer red To Contact Neurology Edgar Armstrong M.D. [facility] [address] [place], [place] [address] Referral ID Status Reason Start Date Expiration Date Visits Requ ested Visits Authorized [id number] Closed 09/26/2021 09/26/2022 1 1 Outpatient (Routine) - Closed Specialty Diagnoses / Procedures Referred By Contact Navjot maria To Contact Diagnoses Neuropathy Edgar Armstrong M.D. [facility] Procedures Fat Aspirate [address] [place], [place] [address] Referral ID Status Reason Start Date Expiration Date Visits Requ ested Visits Authorized [id number] Closed 09/26/2021 09/26/2022 1 1 Reason for Visit Appointment Request (Routine) - Closed Specialty Diagnoses / Procedures Referred By Contact Navjot maria To Contact Neurology Diagnoses Neuropathy Imbalance Non Orthopedic Referral ID Status Reason Start Date Expiration Date Visits Requ ested Visits Authorized [id number] Closed 08/31/2021 08/31/2022 1 1 Encounter Details Date Type Department Care Team Description 09/26/2021 Comprehensive Visit Department of [place], Neuropa thy (Primary Neurology in Iban Doll M.D. Dx) [place], [address] [place], [place] [address] [facility] [address] [place], [place] [phone] (Work) [phone] 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 Tobacco Use Types Packs/Day Years [...] or relatives? How often do you attend denominational or Never 2021 mandaeism services? Do you belong to any clubs or No 09/22/2021 organizations such as denominational groups, unions, fraternal or athletic groups, or [...] place to sleep or slept in a fdc (including now)? Education Answer Date Recorded What is the highest level of school you have Some college, n o degree 09/22/2021 completed or the highest degree you have received? Sex Assigned at Date Recorded Female 09/22/2021 7:06 AM CDT documented as of this encounter Last Filed Vital Signs Vital Sign Reading [...] Mass Index 30.37 09/26/2021 3:10 PM CDT documented in this encounter Consult Notes Edgar Armstrong M.D. - 09/26/2021 3:00 PM CDT Images from the original note were not included. Referring provider Dr. Katheryn naqvi. provider found She was previously evaluated at [facility]. CHIEF COMPLAINT / REASON FOR VISIT Apolonia William is a 76 y.o. female who presents for evaluation of peripheral neuropathy. HISTORY OF PRESENT ILLNESS is a pleasant 76 y.o. right handed female from [place], [place]. 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 Apolonia William presents today with her . I reviewed outside records for this visit. In 2012, right after the surgery of the left meniscus in the knee, she started to feel a band aboveher left knee. She also felt that her left knee was weaker but was not real bigger. She underwent physical therapy without any improvement in the sensation. She has had ongoing band like feeling. Then,she gradually developed discomfort on her feet, starting in the left foot and followed in the right foot few months later with feelings of walking on a rock, like on socks all the time, burning, cracking, heaviness, pin and needle and tightness on the bottom of her feet which is mostly at the balls. There is no significant pain. This is annoying. Over the past few years, there is tightness in her calves mostly at night and she has worsening balance without falls or difficulty walking in the dark . In the morning, she wakes up with the numbness in her feet up to the ankles. She has an on gait aids.She has no weakness and has no trouble getting up and down stairs. She has no allodynia. She denies any low back pain or sciatica. She only has left hip pain when she stands on certain position withoutradiating pain. She seldom takes Advil. In the past 2 months, she noticed redness in her left more than the right foot. During the past 2 years, she has had little ambulation outside because of quarantine during COVID-19 pandemic. She has no bulbar, upper extremity symptoms, autonomic dysfunction, lightheadedness, bowel, bladdersymptoms, dry eyes, or weight loss. She only has some dry mouth after on duloxetine. She has taken centrum (multi-vitamin) and B12 supplement but never taken sole vitamin B6 supplement. She told us that previously she consumed significant amount of prunes (0.21 mg of B6/100 g) that she has stopped taking it after the high level of B6. Previous investigations - EMG 06/21/21: a mild, generalized, sensory motor peripheral neuropathy involving the legs bilaterally. Sensory fibers are involved more the motor fibers. The primary underlying pathophysiology is axonal loss rather than demyelination. This pattern of neuropathy is etiologically nonspecific. - Blood work (08/07/21): B6 173.5 (high, 20-125 nmol/L) B12 849 with normal MMA, DAHLIA < 1:80, negative SSA, SSB, no monoclonal protein (SPEP, ALANA), B1 167 Previous treatment - gabapentin: Side effect of nausea - Lyrica: Side effect of nausea - Duloxetine 30 mg: Has been on for 3.5 weeks with is helpful for sleep but no different in her feetsymptoms Current Status: Self ambulation without gait aid PAST MEDICAL SURGICAL HISTORY - a fall in January 2019 resulting in fracture right forearm status post surgery (she stepped back and fell on a child toy but not to imbalance) - hypertension - anxiety REVIEW OF SYSTEMS: A ten system review of constitutional, cardiovascular, respiratory, musculoskeletal, endocrine, skin, HEENT, genitourinary, psychiatric and neurologic systems was obtained and documented in the electronic medical record and is unremarkable except as noted and found above. CURRENT MEDICATIONS: Current Outpatient Medications: ??? aspirin 81 mg chewable tablet, Chew 81 mg daily., Disp: , Rfl: ??? chlorthalidone (HYGROTON) 25 mg tablet, Take 12.5 mg by mouth daily., Disp: , Rfl: ??? cyanocobalamin (VITAMIN B12) 1,000 mcg tablet, Take 1 tablet by mouth daily., Disp: , Rfl: ??? diphenhydrAMINE-acetaminophen (TYLENOL PM) 25-500 mg per tablet, Take 0.5 tablets by mouth at bedtime as needed for sleep., Disp: , Rfl: ??? DULoxetine (CYMBALTA) [address] capsule, Take 1 capsule by mouth daily., Disp: , Rfl: ??? inulin (FIBER GUMMIES ORAL), as needed., Disp: , Rfl: ??? metoprolol tartrate (LOPRESSOR) 50 mg tablet, Take 1 tablet by mouth 2 (two) times a day., Disp:, Rfl: ??? multivitamin tablet, Take 1 tablet by mouth daily., Disp: , Rfl: ??? omeprazole (PriLOSEC) [address] capsule, Take 1 capsule by mouth once a week., Disp: , Rfl: ??? simvastatin (ZOCOR) 20 mg tablet, Take 1 tablet by mouth daily., Disp: , Rfl: ALLERGIES: Allergies Allergen Reactions ??? Adhesive Tape-Silicones Other (see comments) SOCIAL HISTORY: 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 Socioeconomic History ??? Marital status: ??? Highest education level: Some college, no degree Tobacco Use ??? Smoking status: Never Smoker ??? Smokeless tobacco: Never Used Vaping Use ??? Vaping Use: never used Substance and Sexual Activity ??? Alcohol use: Yes Alcohol/week: 2.0 standard drinks Types: 1 Glasses of wine, 1 Cans of beer per week ??? Drug use: Never ??? Sexual activity: Yes Partners: Male control/protection: None Social Determinants of Health Financial Resource Strain: Low Risk ??? Difficulty of Paying Living Expenses: Not hard at all Food Insecurity: No Food Insecurity ??? Worried About Running Out of Food in the Last Year: Never true ??? Ran Out of Food in the Last Year: Never true Transportation Needs: No Transportation Needs ??? Lack of Transportation (Medical): No ??? Lack of Transportation (Non-Medical): No Physical Activity: Inactive ??? Days of Exercise per Week: 0 days ??? Minutes of Exercise per Session: 0 min Stress: Stress Concern Present ??? Feeling of Stress : To some extent Social Connections: Moderately Isolated ??? Frequency of Communication with Friends and Family: More than three times a week ??? Frequency of Social Gatherings with Friends and Family: More than three times a week ??? Attends Jain Services: Never ??? Active Member of Clubs or Organizations: No ??? Attends Club or Organization Meetings: Never ??? Marital Status: Intimate Partner Violence: Not At Risk ??? Fear of Current or Ex-Partner: No ??? Emotionally Abused: No ??? Physically Abused: No ??? Sexually Abused: No Housing Stability: Low Risk ??? Unable to Pay for Housing in the Last Year: No ??? Number of Places Lived in the Last Year: 1 ??? Unstable Housing in the Last Year: No She is a nonsmoker and nondrinker. FAMILY HISTORY Family History Problem Relation Age of Onset ??? Prostate cancer Father ??? Hypertension Father She has no family history of neuropathy. Her father could walk at the age of 84. Her mother has beenat prison for the last 3 years that she fell resulting in a back problem without neuropathy symptoms. VITALS & BMI: Temp 36.5 ??C Ht 171 cm Wt 88.8 kg BMI 30.37 kg/m?? Body mass index is 30.37 kg/m??. PHYSICAL EXAM Temp 36.5 ??C Ht 171 cm Wt 88.8 kg BMI 30.37 kg/m?? I have reviewed vital signs as recorded in the EPIC record. NEUROMUSCULAR NEUROLOGICAL EXAMINATION Neuromuscular Neurology Score Card (* NIS - Neuropathy Impairment Score) Lower limb function NMSC - Gait: Some wide-based gait. Walk on heels: Able Walk on toes: Able Arise from chair: Able Romberg present: Absent (Tandem gait: Intact) Bulbar and associated conditions Speech/Language: Normal Contractures: Absent Dysmorphic: Absent Hand tremor: Absent Myoclonus: Absent Cognition: Normal Scoring, muscle weakness (* NIS) The Neuropathy Impairment Scoring System (NIS) strength: 0=normal; 1=25% weak (MRC equivalent= 5-); 2=50% weak (MRC equivalent 4+); 3=75% weak (MRC equivalent 4-); 3.25%=movement against gravity (MRC equivalent 3); 3.5=movement, gravity eliminated (MRC equivalent 2); 3.75; flicker of movement (MRC equivalent 1) 4=complete paralysis (MRC equivalent 0). Right Left Deficit Deficit 0 Hearing loss 0 0 Pupil light reflex 0 Right Cranial Left Strength Strength 0 * 3rd nerve 0 0 4th nerve 0 0 * 6th nerve 0 0 * Facial weakness 0 0 Temporal-Masseter 0 0 Forehead 0 0 Orbicularis Oculi 0 0 Orbicularis Jo 0 0 * Palate weakness 0 0 Sternocleidomastoid 0 0 Trapezius 0 0 * Tongue weakness 0 Right Cervical Left Strength Strength 0 * Neck flexion 0 0 Next extension 0 0 Infraspinatus 0 0 Supraspinatus 0 0 Pectoralis 0 0 * Deltoid 0 0 * Elbow flexion 0 0 * Brachioradialis 0 0 * Elbow extension 0 0 * Wrist extension 0 0 * Wrist flexion 0 0 Supinator 0 0 Pronator 0 0 Finger extension 0 0 * Finger flexion 0 0 * Thumb abduction 0 0 * Finger spread 0 0 Hypothenar 0 0 Abdominal muscles 0 0 * Respiratory 0 Right Lumbosacral Left Strength Strength 0 * Hip flexion 0 0 * Hip extension 0 0 Hip internal rotation 0 0 Hip adduction 0 0 Hip abduction 0 0 * Knee extension 0 0 * Knee flexion 0 0 * Ankle dorsiflexors 0 0 * Ankle plantar flexors 0 0 * Toe extensors 0 0 * Toe flexors 0 0 Extensor hallicus 0 0 Ankle evertors 0 0 Ankle invertors 0 Muscle Size/Fasciculations Other: Preserved EDB muscle bulks. Scoring, reflexes (* NIS) 0=Normal; -1=Decreased; -2=Absent; +1=Increased; +2=More increased Right Reflexes Left 0 * Biceps brachii 0 0 * Brachioradialis 0 0 * Triceps brachii 0 0 Leatha 0 0 * Quadriceps femoris 0 0 * Gastroc. soleus 0 0 Clonus 0 0 Plantar response 0 Scoring, sensation (* NIS) 0=Normal; -1=Decreased; -2=Absent; +1=Increased; +2=More increased Right Sensation - Index finger Left 0 * Touch-pressure 0 0 * Pin-prick 0 0 * Vibration 0 0 * Joint position 0 Right Sensation - Great Toe Left -1 * Touch-pressure -1 0 * Pin-prick 0 -2 * Vibration -2 0 * Joint position 0 SUMMED SCORES (0 is normal) Strength (Range) Reflex (Range) Sensation (Range) Total Score (Range) NIS Scores 0 (0-192) 0 (0-20) 6 (0-32) 6 (0-244) Total Scores 0 (0-368) 0 (0-32) 6 (0-32) 6 (0-432) Adult Image Lower extremities: Redness on both feet without signs of inflammation. (likely venous pooling) Coordination: Normal rapid alternating movements and [id number]-tn-[id number] testing IMPRESSION #1 Length-dependent sensory peripheral neuropathy; mostly large fiber In summary, Ms. William is a 76 y.o. female presenting with numbness in her lower limbs in length-dependent pattern with imbalance for about 10 years. The localization is length-dependent sensory peripheral neuropathy, mostly large fiber neuropathy. She has insidious onset with slow progression. The cause of the neuropathy she has is likely to be idiopathic peripheral neuropathy that could be seen in up to 4-8% over the age of 60. We will evaluate with EMG to see the large fiber function, autonomic reflex screen for autonomic nerve function and QST for detailed sensory test. We will do further blood work for possible reversible causes of peripheral neuropathy including nutritional, vitamin, rheumatology, autoimmune, endocrine and fat aspirate for amyloid. We will recheck B6 level given the previoushigh level of B6. The previous high level B6 at 173 is unlikely to cause neuropathy. PLAN and RECOMMENDATIONS - EMG - QST - ARS Orders Placed This Encounter Procedures ??? Fat Aspirate ??? HIV-1/-2 Ag and Ab Screen, Plasma ??? ANCA (Antineutrophil Cytoplasmic Antibodies) Vasculitis Panel ??? Antibody to Extractable Nuclear Antigen Evaluation ??? CBC with Differential, Blood ??? Copper ??? Cryoglobulin ??? Hemoglobin A1c ??? Lipid Panel ??? Monoclonal Gammopathy Diagnostic ??? Pernicious Anemia Alva ??? Thyroid Function Alva ??? Vitamin B6 Profile (PLP and PA) ??? Vitamin E Level ??? Zinc ??? Neurology office visit (clinic) - we will see her back on this . PATIENT EDUCATION Ready to learn, no apparent learning barriers were identified; learning preferences include listening. Explained diagnosis and treatment plan; patient expressed understanding of the content. Electronically signed by: Edgar Armstrong M.D. 09/26/21 4:34 PM CDT Iban Flores M.D. - 09/26/2021 3:00 PM CDT I have reviewed Apolonia William with Dr. Armstrong and the patient. The history is well recorded in Dr. Armstrong's record of today's date. We also reviewed the neurologic examination in detail. We repeated important parts of the examination together. This is well recorded in Dr. Armstrong's record of today. Dr. Armstrong and I discussed the evaluation and management plan with the patient. This set out in detail in Dr. Armstrong's note of today's date. documented in this encounter Plan of Treatment Scheduled Referrals Name Type Priority Associated Diagnoses Order S [facility] Neurology office Outpatient Referral Routine Expe cted: visit (clinic) 09/26/2021 (Approximate), Expires: 12/27/2022 documented as of this encounter Results PA FNA BX WO IMG 1ST [place], HC [...] Edgar Armstrong M.D. PROCEDURE/MINOR SURGICAL ORD ERABLES Thyroid Function [place] (09/28/2021 7:33 AM CDT) athologist Signature TSH, Sensitive 3.2 0.3 - 4.2 09/28/2021 DT mIU/L 8:53 AM CDT Specimen Anatomical Collection Method Collection Time Receive d Time (Source) Location / / Volume Laterality Blood (Blood, 09/28/2021 7:33 AM 09/29/19 22 8:26 Venous) CDT AM CDT Edgar Armstrong M.D. LAB BLOOD ADD-ON Performing Organization Address City/[facility]/ZIP Code Phon e Number [facility] - [address] [place], [place] [address] [place] [address] Laboratories-[facility] [address] Pernicious Anemia Al[place] (09/28/2021 7:33 AM CDT) athologist Signature Vitamin B12 770 180 - 914 09/28/2021 [facility] Assay, S ng/L 12:30 PM CDT Specimen Anatomical Collection Method Collection Time Receive d Time (Source) Location / / Volume Laterality Blood (Blood, 09/28/2021 7:33 AM 09/29/19 22 Venous) CDT 11:31 AM CDT Edgar Armstrong M.D. LAB BLOOD NON ADD-ON Performing Organization Address City/[facility] Phon e Number [facility] [address] [place], [place] [address] [facility] [place] [address] Laboratory Medicine and Pathology [address] [place] (ABNORMAL) Lipid Panel (09/28/2021 7:33 AM CDT) P athologist Signature Triglycerides 148 mg/dL 09/28/2021 DTL 8:53 AM CDT Comment: ----REFERENCE VALUE---- Normal: <150 mg/dL Borderline High: 150-199 mg/dL High: 200-499 mg/dL Very High: > or =500 mg/dL Cholesterol, Total 148 mg/dL 09/28/2021 8:53 AM CD T DTL Comment: ----REFERENCE VALUE---- Desirable: < 200 mg/dL Borderline High: 200 - 239 mg/dL High: > or = 240 mg/dL Cholesterol, LDL, Calculated 81 mg/dL 09/28/2021 8:53 AM CDT DTL Comment: ----REFERENCE VALUE---- Desirable: <100 mg/dL Above Desirable: 100-129 mg/dL Borderline High: 130-159 mg/dL High: 160-189 mg/dL Very High: >=190 mg/dL ----ADDITIONAL INFORMATION---- LDL cholesterol calculated using the Sweeney/NIH equation. Cholesterol, HDL, S 41 (L) >=50 mg/dL 09/28/2021 8:53 AM CDT DTL Cholesterol, Non-HDL, Calculated 107 mg/dL 022 8:53 AM CDT DTL Comment: ----REFERENCE VALUE---- Desirable: <130 mg/dL Above Desirable: 130-159 mg/dL Borderline High: 160-189 mg/dL High: 190-219 mg/dL Very High: > or =220 mg/dL Fasting (8 HR or more) Yes 09/28/2021 8:26 A M CDT DTL Specimen Anatomical Collection Method Collection Time Receive d Time (Source) Location / / Volume Laterality Blood (Blood, 09/28/2021 7:33 AM 09/29/19 8:26 Venous) CDT AM CDT Edgar Armstrong M.D. LAB BLOOD ADD-ON Performing Organization Address City/State/ZIP Code Phon e Number [facility] - [address] [place], [place] [address] [facility] [place] [address] Laboratories-[facility] [address] (ABNORMAL) Hemoglobin A1c (09/28/2021 7:33 AM CDT) P athologist Signature Hemoglobin A1c, 5.8 (H) 4.0 - 5.6 09/28/2021 DTL B % 8:42 AM CDT Comment: Hemoglobin A1c values of 5.7-6.4 percent indicate an increased risk for developing diabetes tha [place]. In diabetic patients, HbA1c goals should be discussed with healthcare provider. Specimen Anatomical Collection Method Collection Time Receive d Time (Source) Location / / Volume Laterality Blood (Blood, 09/28/2021 7:33 AM 09/29/19 8:01 Venous) CDT AM CDT Edgar Armstrong M.D. LAB BLOOD ADD-ON Performing Organization Address City/[facility] Phon e Number [facility] - [address] [place], [place] [address] [place] [address] Laboratories-[facility] [address] HIV-1/-2 Ag and Ab Screen, Plasma (09/28/2021 7:33 AM CDT) athologist Signature HIV-1/-2 Ag Negative Negative 09/28/2021 [facility] and Ab Screen, 12:05 PM CDT Comment: Negative result does not rule out HIV in fection. If exposure to HIV infection occurred <14 d ays ago, contact the laboratory to request additi on of HIV-1 RNA detection / quantification test (HIV QN). Specimen Anatomical Collection Method Collection Time Receive d Time (Source) Location / / Volume Laterality Blood (Blood, 09/28/2021 7:33 AM 09/29/19 22 Venous) CDT 10:38 AM CDT Edgar Armstrong M.D. LAB MICROBIOLOGY - BLOOD ORD ERABLES Performing Organization Address City/State/ZIP Code Phon e Number [facility] [address] [place], [place] [address] [facility] [place] [address] Laboratory Medicine and Pathology [address] [place] (ABNORMAL) CBC with Differential, Blood (09/28/2021 7:33 AM CDT) Patholo gist Method Time Signature Hemoglobin 14.6 11.6 - 09/28/2021 DTL 15.0 g/dL 8:25 AM CDT Hematocrit 43.0 35.5 - 09/28/2021 DTL 44.9 % 8:25 AM CDT Erythrocytes 4.57 3.92 - 09/28/2021 DTL 5.13 8:25 AM CDT x10(12)/L MCV 94.1 78.2 - 09/28/2021 DTL 97.9 fL 8:25 AM CDT RBC Distrib Width 12.8 12.2 - 09/28/2021 DTL 16.1 % 8:25 AM CDT Platelet Count 154 (L) 157 - 371 09/28/2021 DTL x10(9)/L 9:12 AM CDT Comment: Results confirmed by smear, no clumping or interference seen. Leukocytes 8.0 3.4 - 9.6 x10(9)/L 09/28/2021 9:12 AM C DT DTL Neutrophils 4.55 1.56 - 6.45 x10(9)/L 09/28/2021 8:25 A M CDT DTL Lymphocytes 2.36 0.95 - 3.07 x10(9)/L 09/28/2021 8:25 A M CDT DTL Monocytes 0.79 0.26 - 0.81 x10(9)/L 09/28/2021 8:25 AM CDT DTL Eosinophils 0.21 0.03 - 0.48 x10(9)/L 09/28/2021 8:25 A M CDT DTL Basophils 0.06 0.01 - 0.08 x10(9)/L 09/28/2021 8:25 AM CDT DTL Specimen Anatomical Collection Method Collection Time Receive d Time (Source) Location / / Volume Laterality Blood (Blood, 09/28/2021 7:33 AM 09/29/19 8:01 Venous) CDT AM CDT Edgar Armstrong M.D. LAB BLOOD ADD-ON Performing Organization Address City/State/ZIP Code Phon e Number [facility] - [address] [place], [place] [address] [facility] [place] [address] Laboratories-[facility] [address] Zinc (09/28/2021 7:32 AM CDT) athologist Signature Zinc, S 66 60 - 106 09/28/2021 [facility] mcg/dL 12:58 PM CDT Comment: ----ADDITIONAL INFORMATION---- This test was developed and its performa nce characteristics determined by [facility] in a manner consistent with CLIA requirements. This test has not been cleared or approved by the [place] and Drug Administration. Specimen Anatomical Collection Method Collection Time Receive d Time (Source) Location / / Volume Laterality Blood (Blood, 09/28/2021 7:32 AM 09/29/19 22 Venous) CDT 10:47 AM CDT Edgar Armstrong M.D. LAB BLOOD NON ADD-ON Performing Organization Address City/[facility]/ZIP Code Phon e Number [facility] [address] [place] [facility] [address] [facility] [facility] [place] [address] Laboratory Medicine and Pathology [address] [place] [address] Dr. [place] Vitamin E Level (09/28/2021 7:32 AM CDT) athologist Signature A-Tocopherol, 11.5 5.5 - 17.0 09/29/2021 [facility] Vitamin E mg/L 11:59 PM CDT Comment: ----ADDITIONAL INFORMATION---- This test was developed and its performa nce characteristics determined by [facility] in a manner consistent with CLIA requirements. This test has not been cleared or approved by the [place] and Drug Administration. Specimen Anatomical Collection Method Collection Time Receive d Time (Source) Location / / Volume Laterality Blood (Blood, 09/28/2021 7:32 AM 09/29/19 22 Venous) CDT 11:54 AM CDT Edgar Armstrong M.D. LAB BLOOD NON ADD-ON Performing Organization Address City/[facility]/ZIP Code Phon e Number [facility] [address] [place] [address] [facility] [facility] [place] [address] Laboratory Medicine and Pathology [address] [place] [address] Dr. [place] Monoclonal Gammopathy Diagnostic (09/28/2021 7:32 AM CDT) Patholo gist Method Time Signature Therapeutic Unspecified 09/28/2021 [facility] Antibody 10:34 AM Administered? CDT Total Protein, 6.9 6.3 - 7.9 09/28/2021 [facility] S g/dL 11:20 AM CDT [place] Free 1.53 0.3300 - 09/28/2021 [facility] Light Chain, S 1.94 mg/dL 10:50 AM CDT Lambda Free 1.02 0.5700 - 09/28/2021 [facility] Light Chain, S 2.63 mg/dL 10:50 AM CDT [place]/Lambda 1.50 0.2600 - 09/28/2021 [facility] FLC Ratio 1.65 10:50 AM CDT Albumin 3.8 3.4 - 4.7 09/28/2021 [facility] g/dL 11:27 PM CDT Alpha-1 0.2 0.1 - 0.3 09/28/2021 [facility] Globulin g/dL 11:27 PM CDT Alpha-2 1.0 0.6 - 1.0 09/28/2021 [facility] Globulin g/dL 11:27 PM CDT Beta-Globulin 1.0 0.7 - 1.2 09/28/2021 [facility] g/dL 11:27 PM CDT Gamma-Globulin 1.0 0.6 - 1.6 09/28/2021 [facility] g/dL 11:27 PM CDT A/G Ratio 1.20 09/28/2021 [facility] 11:27 PM CDT Impression No apparent monoclonal protein on serum electrophoresi s. 09/28/2021 [facility] 11:27 PM See Isotype. CDT Flag, Negative Negative 09/29/2021 [facility] M-protein 11:25 AM Isotype CDT M-protein Cannot rule 09/29/2021 [facility] Isotype out small 11:25 AM MALDI-TOF MS monoclonal CDT protein. ~Suggest repeat testing in 6-12 months if clinically indicated. Comment: ----ADDITIONAL INFORMATION---- The submitted sample was assayed by five separate immunopurifications for IgG, IgA, IgM, kappa and lambda. ??The r esult reflects the findings of either no monoclonal protein detected or those monoclonal immunoglobulins that were detected. This test was developed and its performa nce characteristics determined by [facility] in a manner consistent with CLIA requirements. This test has not been cleared or approved by the [place] and Drug Administration. Specimen Anatomical Collection Method Collection Time Receive d Time (Source) Location / / Volume Laterality Blood (Blood, 09/28/2021 7:32 AM 09/29/19 Venous) CDT 10:32 AM CDT Narrative [facility] SUPPORT NICOLAS R - 09/29/2021 11:25 AM CDT Specimen Information: Specimen ID: [id number] Specimen Type: Blood Specimen Collection Start Date: 09/29/19 ??7:32 AM Specimen Received Date: 09/28/2021 10:32 AM Specimen ID: [id number] Specimen Type: Blood Specimen Collection Start Date: 09/29/19 ??7:32 AM Specimen Received Date: 09/28/2021 10:32 AM Edgar Armstrong M.D. LAB BLOOD ADD-ON Performing Organization Address City/[facility] Code Phon e Number [address] [place] [phone] SUPPORT [facility] [place] [address] Laboratory Medicine and Pathology [address] [place] [address] Dr. PUTNAM Cryoglobulin (09/28/2021 7:32 AM CDT) [facility] Signature Cryoglobulin, Negative Negative 09/29/2021 [facility] S %ppt 10:47 AM CDT Comment: This test is negative at 24 hours. All s amples are held and reviewed again at 7 days. If delayed precipitation occurs after 7 days, Immunofixation will be performed and an additional report will follow. Specimen Anatomical Collection Method Collection Time Receive d Time (Source) Location / / Volume Laterality Blood (Blood, 09/28/2021 7:32 AM 09/29/19 22 9:53 Venous) CDT AM CDT Edgar Armstrong M.D. LAB BLOOD NON ADD-ON Performing Organization Address City/[facility]/ZIP Code Phon e Number [address] [place], [place] [address] SUPPORT [facility] [place] [place] [address] Laboratory Medicine and Pathology [address] [place] [address] Dr. PUTNAM (ABNORMAL) Copper (09/28/2021 7:32 AM CDT) P athologist Signature Copper, S 75 (L) 77 - 206 09/28/2021 [facility] mcg/dL 12:58 PM CDT Comment: ----ADDITIONAL INFORMATION---- This test was developed and its performa nce characteristics determined by [facility] in a manner consistent with CLIA requirements. This test has not been cleared or approved by the [place] and Drug Administration. Specimen Anatomical Collection Method Collection Time Receive d Time (Source) Location / / Volume Laterality Blood (Blood, 09/28/2021 7:32 AM 09/29/19 22 Venous) CDT 10:47 AM CDT Edgar Armstrong M.D. LAB BLOOD NON ADD-ON Performing Organization Address City/[facility]/ZIP Code Phon e Number [facility] [address] [place], [place] [address] [place] [address] [place] [address] Laboratory Medicine and Pathology [address] [place] Antibody to Extractable Nuclear Antigen Evaluation (09/28/2021 7:32 AM CDT) P athologist Signature SS-A/Ro Ab, <0.2 <1.0 09/28/2021 [facility] IgG, S (Negative) 11:26 AM CDT U SS-B/La Ab, <0.2 <1.0 09/28/2021 [facility] IgG, S (Negative) 11:26 AM CDT U Sm Ab, IgG, S <0.2 <1.0 09/28/2021 [facility] (Negative) 11:26 AM CDT U OIL FIELD RIG BUILDER Ab, IgG, S <0.2 <1.0 09/28/2021 [facility] (Negative) 11:26 AM CDT U Scl 70 Ab, IgG, <0.2 <1.0 09/28/2021 [facility] S (Negative) 11:26 AM CDT U Megan 1 Ab, IgG, S <0.2 <1.0 09/28/2021 [facility] (Negative) 11:26 AM CDT U Specimen Anatomical Collection Method Collection Time Receive d Time (Source) Location / / Volume Laterality Blood (Blood, 09/28/2021 7:32 AM 09/29/19 22 Venous) CDT 10:31 AM CDT Edgar Armstrong M.D. LAB BLOOD ADD-ON Performing Organization Address City/[facility]/ZIP Code Phon e Number [facility] [address] [place], [place] [address] [address] [facility] [place] [address] Laboratory Medicine and Pathology [address] [place] [address] Dr. PUTNAM ANCA (Antineutrophil Cytoplasmic Antibodies) Vasculitis Panel (09/28/2021 7:32 AM CDT) Patholo gist Method Time Signature Myeloperoxidase Ab, <0.2 <0.4 09/28/2021 [facility] S (Negative 11:22 AM CDT ) U Proteinase 3 Ab <0.2 <0.4 09/28/2021 [facility] (PR3), S (Negative 11:22 AM CDT ) U Specimen Anatomical Collection Method Collection Time Receive d Time (Source) Location / / Volume Laterality Blood (Blood, 09/28/2021 7:32 AM 09/29/19 Venous) CDT 10:31 AM CDT Edgar Armstrong M.D. LAB BLOOD ADD-ON Performing Organization Address City/[facility]/ZIP Code Phon e Number [address] [place] [phone] [place] [address] Laboratory Medicine and Pathology [address] [place] [address] Dr. PUTNAM Vitamin B6 Profile (PLP and PA) (09/28/2021 7:31 AM CDT) athologist Signature Pyridoxal 32 5 - 50 09/29/2021 [facility] 5-Phosphate mcg/L 3:54 PM CDT (PLP), P Comment: ----ADDITIONAL INFORMATION---- This test was developed and its performa nce characteristics determined by [facility] in a manner consistent with CLIA requirements. This test has not been cleared or approved by the [place] and Drug Administration. Pyridoxic Acid (PA), P 8 3 - 30 mcg/L 09/29/2021 3:5 4 PM CDT [facility] Comment: ----ADDITIONAL INFORMATION---- This test was developed and its performa nce characteristics determined by [facility] in a manner consistent with CLIA requirements. This test has not been cleared or approved by the [place] and Drug Administration. Specimen Anatomical Collection Method Collection Time Receive d Time (Source) Location / / Volume Laterality Blood (Blood, 09/28/2021 7:31 AM 09/29/19 22 4:12 Venous) CDT PM CDT Edgar Armstrong M.D. LAB BLOOD NON ADD-ON Performing Organization Address City/State/ZIP Code Phon e Number [facility] [address] [place] [address] CENTER [facility] [place] [address] Laboratory Medicine and Pathology [address] [place] documented in this encounter Visit Diagnoses Diagnosis Neuropathy - Primary Neuropathy Neuropathy documented in this encounter Care Teams Asbestos Hazard Abatement Worker Relationship Specialty Start Date End Date Elsewhere, Pcp PCP - General Internal Medicine 09/26/21 documented as of this encounter
--- OUTSIDE RECORDS SUMMARY | 2022-01-10 14:00 | XMS_ITS | Encounter Summary ---
:1945 Author Organization [facility] Address [address] [place] [address] Care Team Providers Name Role Phone Unavailable Primary Care Provider Unavailable Encounter Details Date Type Department Care Team Description 09/25/2021 Clinical Communication Visit Review in [place], [place] [address] [place], [place] [id number] 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 Tobacco Use Types Packs/Day Years [...] or relatives? How often do you attend sabianist or Never 2021 buddhist services? Do you belong to any clubs or No 09/22/2021 organizations such as sabianist groups, unions, fraternal or athletic groups, or [...] place to sleep or slept in a penitentiary (including now)? Education Answer Date Recorded What is the highest level of school you have Some college, n o degree 09/22/2021 completed or the highest degree you have received? Sex Assigned at Date Recorded Female 09/22/2021 7:06 AM CDT documented as of this encounter Plan of Treatment Not on filedocumented as of this encounter Visit Diagnoses Not on filedocumented in this encounter
--- OUTSIDE RECORDS SUMMARY | 2022-01-10 14:00 | XMS_ITS | Encounter Summary ---
:1945 Author Organization [facility] Address [address] [place] [address] Care Team Providers Name Role Phone Elsewhere, Pcp Primary Care Provider Unavailable Reason for Referral Outpatient (Routine) - Closed Specialty Diagnoses / Procedures Referred By Contact Refer red To Contact Diagnoses Neuropathy Antonio Flores M.D. [facility] Procedures EMG [address] [place], [place] [address] Referral ID Status Reason Start Date Expiration Date Visits Requ ested Visits Authorized [id number] Closed 09/27/2021 09/27/2022 1 1 Outpatient (Routine) - Closed Specialty Diagnoses / Procedures Referred By Contact Refer red To Contact Diagnoses Neuropathy Antonio Flores M.D. [facility] Procedures Quantitative sensory test (QST) [address] [place], [place] [address] Referral ID Status Reason Start Date Expiration Date Visits Requ ested Visits Authorized [id number] Closed 09/27/2021 09/27/2022 1 1 Outpatient (Routine) - Closed Specialty Diagnoses / Procedures Referred By Contact Refer red To Contact Diagnoses Neuropathy Antonio Flores M.D. [facility] Procedures Autonomic reflex Screen [address] [place], [place] [address] Referral ID Status Reason Start Date Expiration Date Visits Requ ested Visits Authorized [id number] Closed 09/27/2021 09/27/2022 1 1 Reason for Visit Reason Comments Pre-visit Testing Orders Encounter Details Date Type Department Care Team Description 09/19/2021 Clinical Communication Department of [place], Pre- visit Testing Neurology in Antonio Doll M.D. Orders [place], [facility] [address] [place], [place] [address] [facility] [address] [place], [place] [phone] (Work) [phone] 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 Tobacco Use Types Packs/Day Years Used Date Smoking Tobacco: Never Alcohol Habits Answer Date Recorded How often [...] or relatives? How often do you attend baptism or Never 2021 denominational services? Do you belong to any clubs or No 09/22/2021 organizations such as baptism groups, unions, fraternal or athletic groups, or [...] minutes do you engage in exercise at is 0 min 09/22/2021 level? Stress Answer [...] place to sleep or slept in a nursing home (including now)? Sex Assigned at Date Recorded Female 09/22/2021 7:06 AM CDT documented as of this encounter Plan of Treatment Not on filedocumented as of this encounter Results EMG (10/03/2021 8:37 AM CDT) Specimen (Source) Anatomical Collection Method Collection Time Re ceived Time Location / / Volume Laterality 10/03/2021 12:30 PM CDT Narrative [facility] - 10/03/2021 10:01 AM CDT 03-Oct-2021 ? Electromyography ? Final Report Study Number: 1 EMG Honing Machine Operator Semiautomatic: Jimmy Abdi. 127 o r [phone] Referred by: ANTONIO FLORES (127 o r [phone]) Referred for: Peripheral Neuropathy Referral Code: ?200 [...] sensorimotor neuropathy . Joy Abdi (127 or [phone])/[facility] NERVE CONDUCTIONS ??Record Rep ?? Normal ??Normal [...] Final Repor t Study Number: 1 EMG Honing Machine Operator Semiautomatic: Jimmy Abdi. 127 o r [phone] Referred by: ANTONIO FLORES (127 o r [phone]) Referred for: Peripheral Neuropathy Referral Code: 200 [...] sensorimotor neuropathy . Joy Abdi (127 or [phone])/[facility] NERVE CONDUCTIONS Record Rep Normal Normal Distal [...] Organization Address City/State/ZIP Code Phon e Number [facility] Autonomic reflex Screen (10/03/2021 8:35 AM CDT) Specimen (Source) Anatomical Collection Method Collection Time Re ceived Time Location / / Volume Laterality 10/03/2021 7:45 AM CDT Narrative [facility] - 10/03/2021 10:02 AM CDT FINAL ? REPORT ? AUTONOMIC REFLEX SCREEN ? [phone] ? A ge: 76 ?Location: [place] ? Lab #: [id number] [address] William ? S ex: F ? Order ID: ??[id number] ? Date: 10/03/2021 : 1945 Autonomic Honing Machine Operator Semiautomatic: Destiney Jara M.D. ([phone]) ?CONCLUSION Abnormal study. There is evidence of [...] to the Valsalva maneuver were reduced. (B) Cvrc-so-vmou blood pressure response s to the Valsalva [...] no symptoms. -99 = missing value ?? Antonio Flores M.D. NEUROLOGY ORDERABLES Performing Organization Address City/State/ZIP Code Phon e Number [facility] Quantitative sensory test (QST) (09/28/2021 10:43 AM [...] unmyelinated sensory fibers serving the left limb. Antonio Flores M.D. NEUROLOGY ORDERABLES Performing Organization Address City/State/ZIP Code Phon e Number MMODAL MMODAL NA documented in this encounter Visit Diagnoses Diagnosis Neuropathy - Primary Neuropathy Neuropathy Neuropathy documented in this encounter Care Teams Information Systems Auditor Relationship Specialty Start Date End Date Elsewhere, Pcp PCP - General Internal Medicine 09/26/21 documented as of this encounter
--- OUTSIDE RECORDS SUMMARY | 2022-01-10 14:00 | XMS_ITS | Encounter Summary ---
:1945 Author Organization [facility] Address [address] [place] [address] Care Team Providers Name Role Phone Elsewhere, Pcp Primary Care Provider Unavailable Encounter Details Date Type Department Care Team Description 09/28/2021 Hospital Encounter Department of Laboratory [place], Neuropathy Medicine and Pathology, Ke stone M.D. [facility] in [address] [place] [address] [place] [address] [place] [address] [phone] 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 Tobacco Use Types Packs/Day Years [...] or relatives? How often do you attend episcopalian or Never 2021 caodaism services? Do you belong to any clubs or No 09/22/2021 organizations such as episcopalian groups, unions, fraternal or athletic groups, or [...] place to sleep or slept in a intermediate (including now)? Education Answer Date Recorded What [...] Procedure Name Priority Date/Time Associated Comments Diagnosis HIV-1/-2 AG AND AB Routine 09/28/2021 7:33 AM Neuropathy Res ults for this SCREEN, PLASMA CDT procedure are in the results section. LIPID PANEL, S Routine 09/28/2021 7:33 AM Neuropathy Results for this CDT procedure are i n the results section. THYROID FUNCTION Routine 09/28/2021 7:33 AM Neuropathy Resul ts for this CASCADE, S CDT procedure are i n the results section. PERNICIOUS ANEMIA Routine 09/28/2021 7:33 AM Neuropathy Resu lts for this CASCADE, S CDT procedure are i n the results section. CBC WITH Routine 09/28/2021 7:33 AM Neuropathy Results f or this DIFFERENTIAL, B CDT procedure ar e in the results section. HEMOGLOBIN A1C, B Routine 09/28/2021 7:33 AM Neuropathy Resu lts for this CDT procedure are i n the results section. MONOCLONAL GAMMOPATHY Routine 09/28/2021 7:32 AM Neuropathy Results for this DIAGNOSTIC, S CDT procedure are in the results section. ANCA VASCULITIS Routine 09/28/2021 7:32 AM Neuropathy Result s for this PANEL, S CDT procedure are i n the results section. AB TO EXTRACTABLE Routine 09/28/2021 7:32 AM Neuropathy Resu lts for this NUCLEAR AG EVAL, S CDT procedure are in the results section. COPPER, S Routine 09/28/2021 7:32 AM Neuropathy Results f or this CDT procedure are i n the results section. CRYOGLOBULIN, S Routine 09/28/2021 7:32 AM Neuropathy Result s for this CDT procedure are i n the results section. ZINC, S Routine 09/28/2021 7:32 AM Neuropathy Results f or this CDT procedure are i n the results section. VITAMIN E, S Routine 09/28/2021 7:32 AM Neuropathy Results f or this CDT procedure are i n the results section. VITAMIN B6 PROF (PLP Routine 09/28/2021 7:31 AM Neuropathy R esults for this AND PA), P CDT procedure are i n the results section. documented in this encounter Results Thyroid Function [place] (09/28/2021 7:33 AM CDT) P athologist Signature TSH, Sensitive 3.2 0.3 - 4.2 09/28/2021 DTL mIU/L 8:53 AM CDT Specimen Anatomical Collection Method Collection Time Receive d Time (Source) Location / / Volume Laterality Blood (Blood, 09/28/2021 7:33 AM 09/29/19 8:26 Venous) CDT AM CDT Edgar Armstrong M.D. LAB BLOOD ADD-ON Performing Organization Address City/[facility]/ZIP Code Phon e Number [facility] - [address] [place], [place] [address] [place] [address] [address] Pernicious Anemia [place] (09/28/2021 7:33 AM CDT) athologist Signature Vitamin B12 770 180 - 914 09/28/2021 [facility] Assay, S ng/L 12:30 PM CDT Specimen Anatomical Collection Method Collection Time Receive d Time (Source) Location / / Volume Laterality Blood (Blood, 09/28/2021 7:33 AM 09/29/19 Venous) CDT 11:31 AM CDT Edgar Armstrong M.D. LAB BLOOD NON ADD-ON Performing Organization Address City/[facility]/ZIP [facility] Phon e Number [facility] [address] [place], [place] [address] SUPPORT [facility] [place] [address] Laboratory Medicine and Pathology [address] [place] (ABNORMAL) Lipid Panel (09/28/2021 7:33 AM CDT) athologist Signature Triglycerides 148 mg/dL 09/28/2021 DTL [...] Calculated 107 mg/dL 022 8:53 AM CDT DT Comment: ----REFERENCE VALUE---- Desirable: <130 mg/dL Above Desirable: 130-159 mg/dL Borderline High: 160-189 mg/dL High: 190-219 mg/dL Very High: > or =220 mg/dL Fasting (8 HR or more) Yes 09/28/2021 8:26 A M CDT DT Specimen Anatomical Collection Method Collection Time Receive d Time (Source) Location / / Volume Laterality Blood (Blood, 09/28/2021 7:33 AM 09/29/19 22 8:26 Venous) CDT AM CDT Edgar Armstrong M.D. LAB BLOOD ADD-ON Performing Organization Address City/[facility] Phon e Number [facility] - [address] [place], [place] [id number] [place] [address] (ABNORMAL) Hemoglobin A1c (09/28/2021 7:33 AM CDT) P athologist Signature Hemoglobin A1c, 5.8 (H) 4.0 - 5.6 09/28/2021 DT B % 8:42 AM CDT Comment: Hemoglobin A1c values of 5.7-6.4 percent indicate an increased risk for developing diabetes tha [place]. In diabetic patients, HbA1c goals should be discussed with healthcare provider. Specimen Anatomical Collection Method Collection Time Receive d Time (Source) Location / / Volume Laterality Blood (Blood, 09/28/2021 7:33 AM 09/29/19 22 8:01 Venous) CDT AM CDT Edgar Armstrong M.D. LAB BLOOD ADD-ON Performing Organization Address City/State/[facility] Phon e Number [facility] - 200 [place], [place] [address] [employer] [facility] [place] [address] [address] HIV-1/-2 Ag and Ab Screen, Plasma (09/28/2021 7:33 AM CDT) P athologist Signature HIV-1/-2 Ag Negative Negative 09/28/2021 [facility] and Ab Screen, 12:05 PM CDT P Comment: Negative result does not rule out [...] Organization Address City/State/ZIP Code Phon e Number [facility] [address] [place], [place] [address] SUPPORT [facility]ENTER [facility] [place] [address] Laboratory Medicine and Pathology [address] [...] M.D. LAB BLOOD ADD-ON Performing Organization Address City/[facility] Phon e Number [facility] - [facility] [address] [place], [place] [address] [employer] [facility] [facility] [place] [address] [address] Zinc (09/28/2021 7:32 AM CDT) athologist Signature Zinc, S 66 60 - 106 09/28/2021 [facility] mcg/dL 12:58 PM CDT Comment: ----ADDITIONAL INFORMATION---- This test was developed and its performa nce characteristics determined by [facility] in a manner consistent with CLIA requirements. This test has not been cleared or approved by the [place] and Drug Administration. Specimen Anatomical Collection Method Collection Time Receive d Time (Source) Location / / Volume Laterality Blood (Blood, 09/28/2021 7:32 AM 09/29/19 Venous) CDT 10:47 AM CDT Edgar Armstrong M.D. LAB BLOOD NON ADD-ON Performing Organization Address City/[facility] Phon e Number [facility] [address] [place], [place] [address] SU[facility] [place] [address] Laboratory Medicine and Pathology [address] [place] Vitamin E Level (09/28/2021 7:32 AM CDT) P athologist Signature A-Tocopherol, 11.5 5.5 - 17.0 09/29/2021 [facility] Vitamin E mg/L 11:59 PM CDT Comment: ----ADDITIONAL INFORMATION---- This test was developed and its performa nce characteristics determined by [facility] in a manner consistent with [...] Organization Address City/State/ZIP Code Phon e Number [facility] [address] [place], [place] [address] [place] [address] CENTER [facility] [place] [address] Laboratory Medicine and Pathology [address] [place] Monoclonal Gammopathy Diagnostic (09/28/2021 7:32 AM CDT) Patholo gist Method Time Signature Therapeutic Unspecified 09/28/2021 [facility] Antibody 10:34 AM Administered? CDT Total Protein, 6.9 6.3 - 7.9 09/28/2021 [facility] S g/dL 11:20 AM CDT [place] Free 1.53 0.3300 - 09/28/2021 [facility] Light Chain, S 1.94 mg/dL 10:50 AM CDT Lambda Free 1.02 0.5700 - 09/28/2021 [facility] Light Chain, S 2.63 mg/dL 10:50 AM CDT [place]/Lambda 1.50 0.2600 - 09/28/2021 [facility] FLC Ratio [...] and its performa nce characteristics determined by [facility] in a manner consistent with CLIA requirements. This test has not been cleared or approved by the [place] d and Drug Administration. Specimen Anatomical Collection Method Collection Time Receive d Time (Source) Location / / Volume Laterality Blood (Blood, 09/28/2021 7:32 AM 09/29/19 Venous) CDT 10:32 AM CDT Narrative [facility] 09/29/2021 11:25 AM CDT Specimen Information: Specimen ID: [id number] Specimen Type: Blood Specimen Collection Start Date: 09/29/19 ??7:32 AM Specimen Received Date: 09/28/2021 10:32 AM Specimen ID: [id number] Specimen Type: Blood Specimen Collection Start Date: 09/29/19 22 ??7:32 AM Specimen Received Date: 09/28/2021 10:32 AM Edgar Armstrong M.D. LAB BLOOD ADD-ON Performing Organization Address City/State/ZIP Code Phon e Number [facility] [address] [place] [address] [place] [address] [place] [address] Laboratory Medicine and Pathology [address] [place] Cryoglobulin (09/28/2021 7:32 AM CDT) [facility] gist Method Time Signature Cryoglobulin, Negative Negative 09/29/2021 [facility] S %ppt 10:47 AM CDT Comment: This [...] LAB BLOOD NON ADD-ON Performing Organization Address City/[facility]/ZIP Code Phon e Number [facility] [address] [place] [address] [facility] [place] [address] Laboratory Medicine and Pathology [address] [place] [address] Dr. [place] (ABNORMAL) Copper (09/28/2021 7:32 AM CDT) athologist Signature Copper, S 75 (L) 77 - 206 09/28/2021 [facility] mcg/dL 12:58 PM CDT Comment: ----ADDITIONAL INFORMATION---- This test was developed and its performa nce characteristics determined by [facility] in a manner consistent with CLIA requirements. This test has not been cleared or approved by the [place] and Drug Administration. Specimen Anatomical Collection Method Collection Time Receive d Time (Source) Location / / Volume Laterality Blood (Blood, 09/28/2021 7:32 AM 09/29/19 22 Venous) CDT 10:47 AM CDT Edgar Armstrong M.D. LAB BLOOD NON ADD-ON Performing Organization Address City/[facility]/ZIP Code Phon e Number [facility] [address] [place] [address] [facility] [place] [address] Laboratory Medicine and Pathology [address] [place] [address] Dr. [place] Antibody to Extractable Nuclear Antigen Evaluation (09/28/2021 7:32 AM CDT) P athologist Signature SS-A/Ro Ab, <0.2 <1.0 09/28/2021 [facility] IgG, S (Negative) 11:26 AM CDT U SS-B/La Ab, <0.2 <1.0 09/28/2021 SDS IgG, S (Negative) 11:26 AM CDT U Sm Ab, IgG, S <0.2 <1.0 09/28/2021 [facility] (Negative) 11:26 AM CDT U SAW OPERATOR Ab, IgG, S <0.2 <1.0 09/28/2021 [facility] (Negative) 11:26 AM CDT U Scl 70 Ab, IgG, <0.2 <1.0 09/28/2021 [facility] S (Negative) 11:26 AM CDT U Megan 1 Ab, IgG, S <0.2 <1.0 09/28/2021 SDS (Negative) 11:26 AM CDT U Specimen Anatomical Collection Method Collection Time Receive d Time (Source) Location / / Volume Laterality Blood (Blood, 09/28/2021 7:32 AM 09/29/19 22 Venous) CDT 10:31 AM CDT Edgar Armstrong M.D. LAB BLOOD ADD-ON Performing Organization Address City/[facility]/ZIP Code Phon e Number [facility] [address] [place] [address] [place] [address] Laboratory Medicine and Pathology [address] [place] ANCA (Antineutrophil Cytoplasmic Antibodies) Vasculitis Panel (09/28/2021 7:32 AM CDT) [facility] gist Method Time Signature Myeloperoxidase Ab, <0.2 <0.4 09/28/2021 [facility] S (Negative 11:22 AM CDT ) U Proteinase 3 Ab <0.2 <0.4 09/28/2021 [facility] (PR3), S (Negative 11:22 AM CDT ) U Specimen Anatomical Collection Method Collection Time Receive d Time (Source) Location / / Volume Laterality Blood (Blood, 09/28/2021 7:32 AM 09/29/19 22 Venous) CDT 10:31 AM CDT Edgar Armstrong M.D. LAB BLOOD ADD-ON Performing Organization Address City/State/ZIP Code Phon e Number [facility] [address] [place], [place] [address] [facility] [place] [address] Laboratory Medicine and Pathology [address] [place] [address] Dr. [place] Vitamin B6 Profile (PLP and PA) (09/28/2021 7:31 AM CDT) athologist Signature Pyridoxal 32 5 - 50 09/29/2021 [facility] 5-Phosphate mcg/L 3:54 PM CDT (PLP), P Comment: ----ADDITIONAL INFORMATION---- This test was developed and its performa nce characteristics determined by [facility] in a manner consistent with CLIA requirements. This test has not been cleared or approved by the [place] and Drug Administration. Pyridoxic Acid (PA), P 8 3 - 30 mcg/L 09/29/2021 3:5 4 PM CDT [facility] Comment: ----ADDITIONAL INFORMATION---- This test was developed and its performa nce characteristics determined by [facility] in a manner consistent with CLIA requirements. This test has not been cleared or approved by the [place] and Drug Administration. Specimen Anatomical Collection Method Collection Time Receive d Time (Source) Location / / Volume Laterality Blood (Blood, 09/28/2021 7:31 AM 09/29/19 4:12 Venous) CDT PM CDT Edgar Armstrong M.D. LAB BLOOD NON ADD-ON Performing Organization Address City/State/ZIP Code Phon e Number [facility] [address] [place] [address] [facility] [place] [address] Laboratory Medicine and Pathology [address] [place] [address] Dr. [place] documented in this encounter Visit Diagnoses Diagnosis Neuropathy documented in this encounter Care Teams Electronics System Mechanic Relationship Specialty Start Date End Date Elsewhere, Pcp PCP - General Internal Medicine 09/26/21 documented as of this encounter
[2022-01-10 15:01] LABS: Chloride* 98 mmol/L (96-114); Sodium* 137 mmol/L (135-149)
[2022-01-10 15:02] LABS: Potassium* 4.8 mmol/L (3.6-5.1)
[2022-01-10 15:04] LABS: Carbon Dioxide* 31 mmol/L (20-32); Creatinine* 0.7 mg/dL (0.5-1.5); Estimated Glomerular Filt Rate 91 ml/min
[2022-01-10 15:05] LABS: Blood Urea Nitrogen* 16 mg/dL (7-30); Calcium* 9.8 mg/dL (8.4-10.6); Glucose* 130 mg/dL (60-115)
== END 2022-01-10 17:07 | disposition home or self-care (01) ==
PROVIDERS: PCP Family Medicine; Visit Provider Family Medicine
DX: I10 Essential (primary) hypertension (principal)
CPT/HCPCS: 80048

== ENCOUNTER 2022-10-10 15:28 | Outpatient (CLI) | payer MEDICARE, SELFPAY | END 2022-10-10 15:29 | disposition home or self-care (01) | LOC: NFLDREF 15:31 | PROVIDERS: PCP Family Medicine; Visit Provider Obstetrics & Gynecology | DX: R10.2 Pelvic and perineal pain (principal) | CPT/HCPCS: 87086 ==

== ENCOUNTER 2022-11-19 10:08 | Outpatient (CLI) | payer MEDICARE, SELFPAY ==
--- NOTE | 2022-11-19 11:41 | W.ANESCHARGE ---
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
--- NOTE | 2022-11-19 12:03 | P.ANES_ITS ---
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
== END 2022-11-19 10:09 | disposition home or self-care (01) ==
LOC: OP CLINIC 10:10
PROVIDERS: PCP Family Medicine; Visit Provider Surgery
DX: Z12.11 Encounter for screening for malignant neoplasm of colon (principal); K63.5 Polyp of colon; D49.0 Neoplasm of unspecified behavior of digestive system; K64.4 Residual hemorrhoidal skin tags; K57.30 Diverticulosis of large intestine without perforation or abscess without bleeding; Z86.010 Personal history of colon polyps
CPT/HCPCS: 00811; 45380; 45381; 45385; 99100; J2704

== ENCOUNTER 2023-02-28 01:37 | Emergency (ER) | payer MEDICARE, SELFPAY ==
[2023-02-28 01:44] VITALS: BP 162/82; PULSE 75; RESP 18; TEMP 36.1; O2SAT 100
--- NOTE | 2023-02-28 01:48 | ED_ITS ---
HPI - General Adult General Chief complaint: Constipation Stated complaint: constipated Time Seen by Provider: 02/28/23 01:48 History of Present Illness HPI narrative: pt reports being constipated. Pt thinks it is from the chemo she is taking. No BM since Saturday. Tonight, pt felt very uncomfortable trying to use restroom. Pt tried treatments at home, did not work. 77-year-old woman presenting to the emergency department with concern of constipation and at this point simply not able to have a bowel movement. 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 Can be prone to some diarrhea. Has been 3 days now without a bowel movement. Took a couple doses of Senokot today and earlier in the day a dose of MiraLax. Typically 1 dose of MiraLax would help her go. It is not taking opiates. Has not had bowel surgeries beyond a cholecystectomy. Is not nauseated or vomiting. Spent a lot of time this afternoon straining. Made small yaya-like stool. Now feeling sore. Thinks she might be retaining urine. Related Data Home Medications Medication Instructions Recorded Confirmed aspirin 81 mg tablet,delayed 81 mg PO DAILY 01/01/22 02/25/23 release cholecalciferol (vitamin D3) 25 25 mcg PO QDAY 01/01/22 02/25/23 mcg (1,000 unit) capsule cyanocobalamin (vitamin B-12) 1,000 mcg PO DAILY 01/01/22 02/25/23 1,000 mcg tablet,extended release diphenhydramine 25 0.5 tab PO HS 01/01/22 02/25/23 mg-acetaminophen 500 mg tablet multivitamin 1 tab PO QDAY 01/01/22 02/25/23 polyethylene glycol 3350 17 4 g PO DAILY PRN 12/27/22 02/25/23 gram/dose oral powder (Miralax) loperamide 2 mg capsule 2 - 4 mg PO Q4H PRN 01/09/23 02/25/23 ondansetron HCl 8 mg tablet 8 mg PO Q8H PRN 01/09/23 02/25/23 prochlorperazine maleate 10 mg 10 mg PO Q6H PRN nausea/vomiting 01/09/23 02/25/23 tablet omeprazole 20 mg capsule,delayed 20 mg PO DAILY PRN reflux 02/11/23 02/25/23 release simvastatin 20 mg tablet 20 mg PO HS 02/11/23 02/25/23 Previous Rx's Medication Instructions Recorded hydrochlorothiazide 12.5 mg tablet 12.5 mg PO QAM #90 tabs 08/06/22 metoprolol tartrate 50 mg tablet 50 mg PO BID #180 tabs 08/06/22 potassium chloride 10 mEq 30 meq (3 x 10 mEq) PO QDAY #90 02/25/23 tablet,extended release tabs Allergies Allergy/AdvReac Type Severity Reaction Status Date / Time adhesive Allergy Severe Blister Verified 02/25/23 09:29 Review of Systems Status of ROS: Reports: 6 or more systems reviewed and unremarkable except as noted in History and below [facility] Medical History Diarrhea ?R19.7 - Diarrhea, unspecified (ICD-10) Neutropenia ?D70.9 - Neutropenia, unspecified (ICD-10) History of colonic polyps ?Z86.010 - Personal history of colonic polyps (ICD-10) Closed fracture of distal radius and ulna (02/03/19) ?S52.509A - Unspecified fracture of the lower end of unspecified radius, initial encounter for closed fracture (ICD-10) ?S52.609A - Unspecified fracture of lower end of unspecified ulna, initial encounter for closed fracture (ICD-10) Surgical History History of surgery on right wrist (01/2019) ?Z98.890 - Other specified postprocedural states (ICD-10) Status post de Quervain's release surgery (09/2016) ?Z98.890 - Other specified postprocedural states (ICD-10) History of left knee surgery (12/2012) ?Z98.890 - Other specified postprocedural states (ICD-10) History of cholecystectomy (07/2015) ?Z90.49 - Acquired absence of other specified parts of digestive tract (ICD- 10) Family History Father Heart disease High blood pressure High cholesterol 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 NAD other than uncomfortable transitions. Heart in regular rate and rhythm. Skin is warm and dry. Well-perfused peripherally without significant edema. Abdomen with good bowel sounds. Little full in the suprapubic area. She winced saying that she felt like she had to pee. Const: Vital Signs, click to edit/add: Vital Signs - 24 hr 02/28/23 01:44 Temperature 97.0 F L Pulse Rate [Left P ulse Oximeter] 75 Respiratory Rate 18 Blood Pressure [Ri ght Upper Arm] 162/82 H Pulse Oximetry 100 Oxygen Delivery Me thod Room Air Documenting provider has reviewed patient's vital signs: yes Course Vital Signs Vital signs: Initial Vital Signs Temperature 97.0 F L 02/28/23 01:44 Temperature Source Temporal Artery Scan 02/28/23 01:44 Pulse Rate 75 02/28/23 01:44 Pulse Rhythm Regular 02/28/23 01:44 Respiratory Rate 18 02/28/23 01:44 Blood Pressure 162/82 H 02/28/23 01:44 Blood Pressure Mean 108 H 02/28/23 01:44 Blood Pressure Position Sitting 02/28/23 01:44 Pulse Oximetry 100 02/28/23 01:44 Oxygen Delivery Method Room Air 02/28/23 01:44 Vital Signs Temperature 97.0 F L 02/28/23 01:44 Pulse Rate 75 02/28/23 01:44 Respiratory Rate 18 02/28/23 01:44 Blood Pressure 162/82 H 02/28/23 01:44 Pulse Oximetry 100 02/28/23 01:44 Oxygen Delivery Method Room Air 02/28/23 01:44 Temperature 97.0 F L 02/28/23 01:44 Pulse Rate 75 02/28/23 01:44 Respiratory Rate 18 02/28/23 01:44 Blood Pressure 162/82 H 02/28/23 01:44 Pulse Oximetry 100 02/28/23 01:44 Oxygen Delivery Method Room Air 02/28/23 01:44 Medications Administered Medications: Discontinued Medications Generic Name Dose Route Start Last Admin Trade Name Sky PRN Reason Stop Dose Admin Docusate Sodium/Benzocaine 5 ml 02/28/23 02:49 02/28/23 03:09 Docusate Sodium/Benzocaine 5 Ml Enema MD 02/28/23 02:50 5 ml ONCE ONE Administration Hydromorphone HCl 0.5 mg 02/28/23 04:27 02/28/23 04:37 Hydromorphone 0.5 Mg/0.5 Ml Inj IM 02/28/23 04:28 0.5 mg ONCE ONE Administration Magnesium Citrate 300 ml 02/28/23 05:20 02/28/23 05:24 Magnesium Citrate 300 Ml Solution PO 02/28/23 05:21 300 ml ONCE ONE Administration Medical Decision Making MDM Narrative Medical decision making narrative: Does not seem to have bowel obstruction. Urinary retention may be complicating apparent constipation. Will bladder scan and catheterize if necessary. Was bladder scanned for around 300 mL. Given this scanner it is likely that the re is twice that amount in the bladder. Will place a Sorto and if significant amount can then leave it. Following catheter placement can then work on bowels Sorto produced 350-400 mL. This was removed to work on stool. Given soreness reported, tried an Enemeez and then without result a Fleet's. Finally I did disimpact about a racquetball to baseball sized lump of firm stool. There was clearly more stool though beyond my reach. Attempting to have a bowel movement again reported that she did feel she needed to anymore was more comfortable felt she could return home. Lab Data Lab results reviewed: Yes I reviewed the patient's lab results Labs: Lab Results 02/28/23 Range/Units 02:45 Urine Color Yellow (Yellow) Urine Appearance Clear (Clear) Urine pH 7.0 (5.0-8.5) Ur Specific [place] 1.020 (1.000-1.030) Urine Protein Negative (Negative) Urine Glucose (UA) Negative (Negative) Urine Ketones Negative (Negative) Urine Blood Negative (Negative) Urine Nitrite Negative (Negative) Urine Bilirubin Negative (Negative) Urine Urobilinogen 1.0 (0.2-1.0) Ur Leukocyte Esterase Negative (Negative) Urine RBC 0-2 (0-2) Urine WBC 0-2 (0-5) Ur Squamous Epith Cells None (None-Few) Urine Bacteria None (None) Discharge Plan Discharge Clinical Impression: Obstipation, Acute urinary retention Patient Disposition: Home w/ Parent or Adult Condition: Improved Additional Instructions: You might find witch claude to be soothing to apply to perianal tissues. Can also use lidocaine cream. Both of these are available [id number] in Samesurf brand or ApoVax brand. Drink at least half of the bottle of magnesium citrate and repeat in 3-6 hours if have not had a big result. If finding that stool is becoming hard and/or feeling like there is a plug again, place an enema and repeat in an hour if no significant result. Stay well-hydrated. In this effort he may also add your MiraLax where you drink at least 3 doses daily for a couple of days then backing off to 1 or 2 doses daily for 1-2 weeks, adjusting to stool consistency. See this enclosed recipe for FruitLax. You can probably use this indefinitely if needed. Feel free to make some modifications :) Prescriptions: No Action aspirin 81 mg tablet,delayed release (DR/EC) 81 mg PO DAILY cholecalciferol (vitamin D3) 25 mcg (1,000 unit) capsule 25 mcg PO QDAY diphenhydramine-acetaminophen 25-500 mg tablet 0.5 tab PO HS multivitamin Tablet 1 tab PO QDAY cyanocobalamin (vitamin B-12) 1,000 mcg tablet extended release 1,000 mcg PO DAILY potassium chloride 10 mEq tablet extended release 30 meq PO QDAY Qty: 90 0RF Rx Instructions: Take 3 tablets (total 30 mEq) daily. hydrochlorothiazide 12.5 mg tablet 12.5 mg PO QAM Qty: 90 3RF metoprolol tartrate 50 mg tablet 50 mg PO BID Qty: 180 3RF polyethylene glycol 3350 [Miralax] 17 gram/dose powder 4 g PO DAILY PRN loperamide 2 mg capsule 2 - 4 mg PO Q4H PRN ondansetron HCl 8 mg tablet 8 mg PO Q8H PRN prochlorperazine maleate 10 mg tablet 10 mg PO Q6H PRN (Reason: nausea/vomiting) simvastatin 20 mg tablet 20 mg PO HS omeprazole 20 mg capsule,delayed release(DR/EC) 20 mg PO DAILY PRN (Reason: reflux) Follow Up/Referrals: Abrahan Nieto MD [Primary Care Provider] - Stand Alone Forms: [employer] Info Instructions
[2023-02-28 02:59] LABS: Bilirubin Urine Negative (Negative); Blood Urine Negative (Negative); Color Urine Yellow (Yellow); Glucose Urine Negative (Negative); Ketones Urine Negative (Negative); Leukocyte Esterase Urine Negative (Negative); Nitrite Urine Negative (Negative); Protein Urine Negative (Negative)
[2023-02-28 03:09] LABS: Appearance Urine Clear (Clear); RBC Urine 0-2 (0-2); WBC Urine 0-2 (0-5)
[2023-02-28] MEDS: DOCUSATE SODIUM/BENZOCAINE 5 ML ENEMA PR (03:09)
[2023-02-28] MEDS: HYDROmorphone 0.5 mg/0.5 ml inj IM (04:37)
[2023-02-28] MEDS: MAGNESIUM CITRATE 300 ML SOLUTION PO (05:24)
== END 2023-02-28 06:08 | disposition home or self-care (01) ==
PROVIDERS: Emergency Provider Family Medicine; PCP Family Medicine
DX: K59.00 Constipation, unspecified (principal); R33.9 Retention of urine, unspecified
CPT/HCPCS: 51798; 81001; 96372; 99284; A9270; J1170

== ENCOUNTER 2023-03-19 07:34 | Outpatient (CLI) | payer MEDICARE, SELFPAY | END 2023-03-19 07:35 | disposition home or self-care (01) | LOC: NFLDREF 03-21 12:37 | PROVIDERS: PCP Family Medicine; Referring Provider Family Medicine; Visit Provider Family Medicine | DX: R19.7 Diarrhea, unspecified (principal) | CPT/HCPCS: 87493 ==

== ENCOUNTER 2023-06-20 11:00 | Outpatient (RCR) | payer MEDICARE, SELFPAY ==
--- NOTE | 2022-12-18 14:23 | URNOTE ---
Request received for authorization for Aloxi (J2469), Bevacizumab (J9035), Irinotecan (J9206), Leucovorin (J0640) Fluorouracil (J9190). Prior authorization is not required as services are based on medical necessity and follow Medicare guidelines.
--- NOTE | 2022-12-19 10:18 | ONC.NURNOTE ---
Clarified appt times with pt's spouse Ankur. Pt has the following home meds prescribed by [facility]: Dex, Compazine, Zofran, and Loperamide. Pt instructed to bring home meds to chemo appt on 12/25/22.
--- NOTE | 2022-12-21 12:06 | URNOTE ---
REceived request for prior auth for Madhav([id number]). Pt has medicare primary. Prior auth is not required as services are based on medical necessity and follow medicare guidelines.
[2022-12-26 08:43] VITALS: BP 133/78; PULSE 67; RESP 16; TEMP 36; O2SAT 97
[2022-12-26 09:03] LABS: Basophils Absolute Auto 0.03 K/uL (0.00-0.30); Basophils Percent Auto 0.4 % (0.0-3.0); Eosinophils Absolute Auto 0.21 K/uL (0.00-0.50); Eosinophils Percent Auto 3.1 % (0.0-7.0); Hematocrit 42.7 % (33.0-51.0); Hemoglobin* 14.5 gm/dL (12.0-16.0); Immature Granulocytes Abs Auto 0.05 K/uL (0.00-0.30); Immature Granulocytes Pct Auto 0.7 %; Lymphocytes Absolute Auto 1.65 K/uL (0.90-2.90); Lymphocytes Percent Auto 24.3 % (20-44); Mean Corpuscular HGB Conc 34 gm/dL (32-36); Mean Corpuscular Hemoglobin 33 pg (26-34); Mean Corpuscular Volume 96 fL (80-100); Monocytes Percent Auto 10.6 % (0.0-11.0); Neutrophils Absolute Auto 4.12 K/uL (1.7-7.0); Neutrophils Percent Auto 60.9 % (42.0-72.0); Platelet Count* 169 K/uL (140-440); RDW Coefficient of Variation % 12.4 % (11.5-15.5); Red Blood Count 4.46 m/uL (4.00-5.20); White Blood Count* 6.78 K/uL (4.50-11.00)
[2022-12-26 09:04] LABS: Slide Review Reflex No
[2022-12-26 09:17] LABS: Albumin* 4.3 g/dL (3.3-5.0); Chloride* 99 mmol/L (96-114); Potassium* 3.2 mmol/L (3.6-5.1); Sodium* 138 mmol/L (135-149)
[2022-12-26 09:19] LABS: Bilirubin Total* 0.7 mg/dL (0.1-1.5); Creatinine* 0.7 mg/dL (0.5-1.5); Est. Creatinine Clearance* 47.27; Estimated Glomerular Filt Rate 90 ml/min
[2022-12-26 09:20] LABS: Alanine Aminotransferase* 29 U/L (4-35); Alkaline Phosphatase* 67 U/L (40-150); Anion Gap 11 mEq/L (7-15); Aspartate Amino Transferase* 29 U/L (12-35); Blood Urea Nitrogen* 14 mg/dL (7-30); Calcium* 9.8 mg/dL (8.4-10.6); Carbon Dioxide* 28 mmol/L (20-32); Glucose* 133 mg/dL (60-115); Total Protein* 7.3 g/dL (6.0-8.3)
[2022-12-26] MEDS: PALONOSETRON 0.25 MG/5 ML inj IV (10:49)
[2022-12-26] MEDS: dexAMETHasone 10 MG in 0.9 % SODIUM CHLORIDE 100 ml 100 ML 404 MG IVPB (11:01)
[2022-12-26] MEDS: LEUCOVORIN CALCIUM 100 MG, TUBING SECONDARY 1 EACH in 5 % DEXTROSE 250 ML 250 ML 170 MG IV (11:23)
--- NOTE | 2022-12-26 12:41 | ONC.NURNOTE ---
New chemo start today chemo education provided to patient and her patient confirms that she understands the need to start chemotherapy as was discussed by Dr José and the [place] team patient has not received information specific to her chemotherapy binder given and reviewed, including specific handouts related to Zirabev, Irinotecan, Leucovorin and Fluorouracil discussed possible side effects including fatigue, neutropenia, diarrhea, nausea/vomiting, infusion reaction, proteinuria, hypertension, risk for cardiac events, worsening of peripheral neuropathy, hair thinning discussed ER visit if fever over 100.4, reviewed self care at home, treatment schedule Christie is scheduled for follow up CT Scan at [place] in January information also provided on managing diarrhea with imodium, CADD pump, questions addressed consents signed- patient states that she is ready to start chemo today prior to seeing Dr Menchaca on - patient states Dr José states she needs to start chemotherapy and patient is agreeable to this plan port placed 8 days ago- Zirabev to be started in 2 weeks
[2022-12-26] MEDS: fluorouraciL 50 mg/ml INJ 820 MG IVP (13:45)
[2022-12-28 12:00] VITALS: BP 131/67; PULSE 57; RESP 16; TEMP 35.8
[2022-12-28] MEDS: SODIUM CHLORIDE 0.9 % (FLUSH) 10 ML SYRINGE IVF ×2 (12:08→12:09)
[2022-12-28] MEDS: HEPARIN 500 UNIT/5 ML SYRINGE IVF (12:10)
--- NOTE | 2023-01-02 10:29 | ONC.NURNOTE ---
Message left on breast navigator to call Ankur, pt's . No details left in message. Inkjet Operator tried calling pt's phone and pt's 's phone. No answer, left message with pt to call [facility] if she has any questions or concerns.
[2023-01-09 07:57] VITALS: BP 144/78; PULSE 57; RESP 16; TEMP 35.6; O2SAT 95
[2023-01-09 08:18] LABS: Basophils Percent Auto 1.3 % (0.0-3.0); Eosinophils Percent Auto 16.1 % (0.0-7.0); Hematocrit 39.8 % (33.0-51.0); Hemoglobin* 13.1 gm/dL (12.0-16.0); Lymphocytes Percent Auto 40.8 % (20-44); Mean Corpuscular HGB Conc 33 gm/dL (32-36); Mean Corpuscular Hemoglobin 32 pg (26-34); Mean Corpuscular Volume 98 fL (80-100); Monocytes Percent Auto 9.8 % (0.0-11.0); Platelet Count* 180 K/uL (140-440); RDW Coefficient of Variation % 13.1 % (11.5-15.5); Red Blood Count 4.07 m/uL (4.00-5.20); White Blood Count* 3.97 K/uL (4.50-11.00)
[2023-01-09 08:22] LABS: Appearance Urine Clear (Clear); Bilirubin Urine Negative (Negative); Blood Urine Trace-intact (Negative); Color Urine Yellow (Yellow); Glucose Urine Negative (Negative); Ketones Urine Negative (Negative); Leukocyte Esterase Urine Negative (Negative); Nitrite Urine Negative (Negative); Protein Urine Negative (Negative); Urobilinogen Urine 0.2 (0.2-1.0); pH Urine 5.5 (5.0-8.5)
[2023-01-09 08:25] LABS: Slide Review Reflex No
[2023-01-09 08:32] LABS: Albumin* 3.9 g/dL (3.3-5.0); Chloride* 101 mmol/L (96-114)
[2023-01-09 08:33] LABS: Potassium* 3.2 mmol/L (3.6-5.1); Sodium* 138 mmol/L (135-149)
[2023-01-09 08:35] LABS: Alanine Aminotransferase* 27 U/L (4-35); Alkaline Phosphatase* 61 U/L (40-150); Anion Gap 10 mEq/L (7-15); Aspartate Amino Transferase* 30 U/L (12-35); Bilirubin Total* 0.5 mg/dL (0.1-1.5); Blood Urea Nitrogen* 11 mg/dL (7-30); Carbon Dioxide* 27 mmol/L (20-32); Creatinine* 0.7 mg/dL (0.5-1.5); Est. Creatinine Clearance* 47.27; Estimated Glomerular Filt Rate 90 ml/min; Glucose* 125 mg/dL (60-115); Total Protein* 6.4 g/dL (6.0-8.3)
[2023-01-09 08:36] LABS: Calcium* 8.9 mg/dL (8.4-10.6)
[2023-01-09 08:45] LABS: Amorphous Sediment Urine Few; RBC Urine 0-2 (0-2); Squamous Epithelial Cell Urine Few (None-Few)
[2023-01-09 09:16] LABS: Total Protein Urine < 5 mg/dL
[2023-01-09 09:18] LABS: Creatinine Urine 107.2 mg/dL
[2023-01-09] MEDS: SODIUM CHLORIDE 0.9 % (FLUSH) 10 ML SYRINGE IVF ×2 (10:10→11:44)
[2023-01-09] MEDS: 0.9 % SODIUM CHLORIDE 250 ml IV (10:10)
[2023-01-09] MEDS: HEPARIN 500 UNIT/5 ML SYRINGE IVF (11:45)
[2023-01-10 09:59] VITALS: BP 180/91; PULSE 63; RESP 16; TEMP 36.1; O2SAT 97
[2023-01-10 10:08] VITALS: BP 158/85
[2023-01-10] MEDS: SODIUM CHLORIDE 0.9 % (FLUSH) 10 ML SYRINGE IVF (10:32)
[2023-01-10] MEDS: PALONOSETRON 0.25 MG/5 ML inj IV (10:32)
[2023-01-10] MEDS: HEPARIN 500 UNIT/5 ML SYRINGE IVF (10:32)
[2023-01-10] MEDS: 0.9 % SODIUM CHLORIDE 250 ml IV (10:32)
[2023-01-10] MEDS: dexAMETHasone 10 MG in 0.9 % SODIUM CHLORIDE 100 ml 100 ML 404 MG IVPB (10:32)
[2023-01-10] MEDS: LEUCOVORIN CALCIUM 100 MG, TUBING SECONDARY 1 EACH in 5 % DEXTROSE 250 ML 250 ML 170 MG IV (11:05)
[2023-01-10] MEDS: fluorouraciL 50 mg/ml INJ 820 MG IVP (12:55)
--- NOTE | 2023-01-10 13:38 | PC.SOCIAL ---
Met with pt and pt's in [facility]. Introduced myself to the pt and discussed social work role in [facility]. Pt states she is getting her second treatment today and has not felt too sick from it. Pt has some increased anxiety. Provider was in to discuss medication options with pt. Pt has a supportive that is with her today. Pt does not have any identified social work needs at this time. Provided pt with this worker's business card to reach out if she would like to meet at a future visit. Pt was thankful and accepted the card. Social work will follow up as needed.
--- NOTE | 2023-01-10 15:37 | ONC.NURNOTE ---
Potassium 3.2 today. Thi Hamilton APRN notified and ordered potassium 20meg po daily x2 then 10meg daily till gone. also to increase her diet with patatoes and bananas. Per Thi she enc Christie to folow up with her primary re BLE edema. like mio per her primary.
[2023-01-12 11:35] VITALS: BP 154/83; PULSE 53; RESP 18; TEMP 36.1; O2SAT 97
[2023-01-12] MEDS: HEPARIN 500 UNIT/5 ML SYRINGE IVF (11:54)
[2023-01-12] MEDS: SODIUM CHLORIDE 0.9 % (FLUSH) 10 ML SYRINGE IVF (11:54)
[2023-01-21 14:52] LABS: Basophils Absolute Auto 0.03 K/uL (0.00-0.30); Basophils Percent Auto 0.6 % (0.0-3.0); Hematocrit 39.5 % (33.0-51.0); Hemoglobin* 13.2 gm/dL (12.0-16.0); Immature Granulocytes Abs Auto 0.03 K/uL (0.00-0.30); Immature Granulocytes Pct Auto 0.6 %; Lymphocytes Percent Auto 36.7 % (20-44); Mean Corpuscular HGB Conc 33 gm/dL (32-36); Mean Corpuscular Hemoglobin 32 pg (26-34); Mean Corpuscular Volume 97 fL (80-100); Monocytes Percent Auto 5.9 % (0.0-11.0); Neutrophils Percent Auto 36.2 % (42.0-72.0); Platelet Count* 266 K/uL (140-440); RDW Coefficient of Variation % 13.4 % (11.5-15.5); Red Blood Count 4.07 m/uL (4.00-5.20); White Blood Count* 5.45 K/uL (4.50-11.00)
[2023-01-21 14:57] LABS: Slide Review Reflex No
[2023-01-21 15:17] LABS: Albumin* 3.9 g/dL (3.3-5.0); Chloride* 102 mmol/L (96-114); Sodium* 138 mmol/L (135-149)
[2023-01-21 15:18] LABS: Potassium* 3.3 mmol/L (3.6-5.1)
[2023-01-21 15:20] LABS: Alkaline Phosphatase* 62 U/L (40-150); Anion Gap 8 mEq/L (7-15); Aspartate Amino Transferase* 48 U/L (12-35); Bilirubin Total* 0.3 mg/dL (0.1-1.5); Carbon Dioxide* 28 mmol/L (20-32); Creatinine* 0.7 mg/dL (0.5-1.5); Est. Creatinine Clearance* 47.27; Estimated Glomerular Filt Rate 90 ml/min; Total Protein* 6.5 g/dL (6.0-8.3)
[2023-01-21 15:21] LABS: Alanine Aminotransferase* 28 U/L (4-35); Blood Urea Nitrogen* 10 mg/dL (7-30); Calcium* 8.5 mg/dL (8.4-10.6); Glucose* 119 mg/dL (60-115)
[2023-01-23 08:18] VITALS: BP 144/82; PULSE 57; RESP 16; TEMP 35.1; O2SAT 96
[2023-01-23 08:30] LABS: Appearance Urine Clear (Clear); Bilirubin Urine Negative (Negative); Blood Urine 1+ (Negative); Color Urine Yellow (Yellow); Glucose Urine Negative (Negative); Ketones Urine Negative (Negative); Leukocyte Esterase Urine Negative (Negative); Nitrite Urine Negative (Negative); Protein Urine Negative (Negative); Urobilinogen Urine 0.2 (0.2-1.0); pH Urine 5.5 (5.0-8.5)
[2023-01-23 08:45] LABS: Bacteria Urine Few; Squamous Epithelial Cell Urine Few (None-Few); WBC Urine 0-2 (0-5)
[2023-01-23] MEDS: 0.9 % SODIUM CHLORIDE 250 ml IV (09:06)
[2023-01-23] MEDS: SODIUM CHLORIDE 0.9 % (FLUSH) 10 ML SYRINGE IVF (09:06)
[2023-01-23] MEDS: dexAMETHasone 10 MG in 0.9 % SODIUM CHLORIDE 100 ml 100 ML 404 MG IVPB (10:15)
[2023-01-23] MEDS: PALONOSETRON 0.25 MG/5 ML inj IV (10:16)
[2023-01-23] MEDS: LEUCOVORIN CALCIUM 100 MG, TUBING SECONDARY 1 EACH in 5 % DEXTROSE 250 ML 250 ML 170 MG IV (10:40)
[2023-01-23] MEDS: fluorouraciL 50 mg/ml INJ 820 MG IVP (12:21)
[2023-01-25 10:39] VITALS: BP 188/86; PULSE 54; RESP 16; TEMP 35.5; O2SAT 99
[2023-01-25 10:45] VITALS: BP 164/83
[2023-01-25] MEDS: SODIUM CHLORIDE 0.9 % (FLUSH) 10 ML SYRINGE IVF (10:52)
[2023-01-25] MEDS: HEPARIN 500 UNIT/5 ML SYRINGE IVF (10:52)
[2023-02-06 10:13] VITALS: BP 132/78; PULSE 71; RESP 16; TEMP 35.6; O2SAT 97
[2023-02-06 10:39] LABS: Basophils Percent Auto 1.3 % (0.0-3.0); Eosinophils Percent Auto 8.8 % (0.0-7.0); Hematocrit 39.6 % (33.0-51.0); Hemoglobin* 13.9 gm/dL (12.0-16.0); Immature Granulocytes Pct Auto 0.8 %; Lymphocytes Percent Auto 44.9 % (20-44); Mean Corpuscular HGB Conc 35 gm/dL (32-36); Mean Corpuscular Hemoglobin 33 pg (26-34); Mean Corpuscular Volume 93 fL (80-100); Monocytes Percent Auto 23.1 % (0.0-11.0); Neutrophils Percent Auto 21.1 % (42.0-72.0); Platelet Count* 217 K/uL (140-440); RDW Coefficient of Variation % 15.5 % (11.5-15.5); Red Blood Count 4.24 m/uL (4.00-5.20); White Blood Count* 3.85 K/uL (4.50-11.00)
[2023-02-06 11:02] LABS: Appearance Urine Clear (Clear); Bilirubin Urine 1+ (Negative); Blood Urine 1+ (Negative); Color Urine Yellow (Yellow); Glucose Urine Negative (Negative); Ketones Urine Trace (Negative); Leukocyte Esterase Urine Negative (Negative); Nitrite Urine Negative (Negative); Protein Urine 2+ (Negative); Specific Gravity Urine 1.025 (1.000-1.030); Urobilinogen Urine 0.2 (0.2-1.0)
[2023-02-06 11:03] LABS: Slide Review Reflex Yes
[2023-02-06 11:05] LABS: Chloride* 96 mmol/L (96-114)
[2023-02-06 11:06] LABS: Albumin* 3.7 g/dL (3.3-5.0); Sodium* 132 mmol/L (135-149)
[2023-02-06 11:08] LABS: Anion Gap 7 mEq/L (7-15); Bilirubin Total* 0.6 mg/dL (0.1-1.5); Carbon Dioxide* 29 mmol/L (20-32); Creatinine* 0.7 mg/dL (0.5-1.5); Est. Creatinine Clearance* 47.27; Estimated Glomerular Filt Rate 90 ml/min; Total Protein* 6.2 g/dL (6.0-8.3)
[2023-02-06 11:09] LABS: Alanine Aminotransferase* 32 U/L (4-35); Alkaline Phosphatase* 68 U/L (40-150); Aspartate Amino Transferase* 29 U/L (12-35); Blood Urea Nitrogen* 9 mg/dL (7-30); Calcium* 8.4 mg/dL (8.4-10.6); Glucose* 111 mg/dL (60-115)
[2023-02-06 11:14] LABS: Potassium* 2.5 mmol/L (3.6-5.1)
[2023-02-06 11:44] LABS: Slide Review Acceptable Review (Acceptable)
[2023-02-06 11:57] LABS: RBC Urine 0-2 (0-2)
[2023-02-06 11:58] LABS: Amorphous Sediment Urine Few; Bacteria Urine Moderate; Mucus Urine Many; Squamous Epithelial Cell Urine Few (None-Few)
--- NOTE | 2023-02-06 11:59 | ONC.NURNOTE ---
Addendum entered by Faby Bernal RN 02/06/23 13:44: Patient is seeing Dr. Menchaca tomorrow, will address treatment plan for next week at this visit. Email was sent to [facility] and Dr. Menchaca, they are in agreement that patient will be treated on Saturday and [place] will push out appointments that were scheduled for 02/12/2023. Addendum entered by Apolonia Crenshaw RN 02/06/23 12:49: also ANC 0.80 and urine 2+ protein unable to treat. Pt to increase K+ to 30 meq a day . serum magnesium . Waiting to hear from Dr. Menchaca plan for next week. Original Note: not able to treat today due to ANC and K+2.5. pt states only one loose stool a day . states taking 20meq k+ daily except today. Emailed Dr. Menchaca and Thi lim APRN. NO treatment today. pt to receive 40mq KCL in 1000cc ns over 4 hrs then discharged.
[2023-02-06] MEDS: HEPARIN 500 UNIT/5 ML SYRINGE IVF (12:30)
[2023-02-06] MEDS: SODIUM CHLORIDE 0.9 % (FLUSH) 10 ML SYRINGE IVF (12:30)
[2023-02-06] MEDS: POTASSIUM CHLORIDE 40 MEQ in 0.9 % SODIUM CHLORIDE 1000 ml 1,000 ML 255 MEQ IV (12:30)
[2023-02-06 12:53] LABS: Magnesium* 1.9 mg/dL (1.5-2.6)
[2023-02-07 11:39] LABS: Magnesium* 1.8 mg/dL (1.5-2.6)
[2023-02-07] MEDS: POTASSIUM CHLORIDE 10 MEQ/100 ML PIGGYBACK 100 MEQ IVPB ×2 (12:16→13:21)
[2023-02-07] MEDS: SODIUM CHLORIDE 0.9 % (FLUSH) 10 ML SYRINGE IVF (14:45)
[2023-02-07] MEDS: 0.9 % SODIUM CHLORIDE 250 ml IV (14:46)
[2023-02-11 08:42] VITALS: BP 150/74; PULSE 69; RESP 18; TEMP 36.8; O2SAT 97
[2023-02-11 09:24] LABS: Basophils Absolute Auto 0.04 K/uL (0.00-0.30); Basophils Percent Auto 0.5 % (0.0-3.0); Hematocrit 35.9 % (33.0-51.0); Hemoglobin* 12.4 gm/dL (12.0-16.0); Immature Granulocytes Abs Auto 0.82 K/uL (0.00-0.30); Immature Granulocytes Pct Auto 9.5 %; Lymphocytes Absolute Auto 2.32 K/uL (0.90-2.90); Mean Corpuscular HGB Conc 35 gm/dL (32-36); Mean Corpuscular Hemoglobin 33 pg (26-34); Mean Corpuscular Volume 96 fL (80-100); Monocytes Percent Auto 12.7 % (0.0-11.0); Neutrophils Percent Auto 38.3 % (42.0-72.0); Platelet Count* 207 K/uL (140-440); RDW Coefficient of Variation % 15.7 % (11.5-15.5); Red Blood Count 3.73 m/uL (4.00-5.20)
[2023-02-11 09:26] LABS: Slide Review Reflex No
[2023-02-11] MEDS: SODIUM CHLORIDE 0.9 % (FLUSH) 10 ML SYRINGE IVF ×2 (09:30→14:19)
[2023-02-11 09:39] LABS: Albumin* 3.3 g/dL (3.3-5.0); Chloride* 99 mmol/L (96-114); Potassium* 3.5 mmol/L (3.6-5.1); Sodium* 136 mmol/L (135-149)
[2023-02-11 09:41] LABS: Anion Gap 9 mEq/L (7-15); Bilirubin Total* 0.3 mg/dL (0.1-1.5); Carbon Dioxide* 28 mmol/L (20-32); Creatinine* 0.6 mg/dL (0.5-1.5); Est. Creatinine Clearance* 47.27; Estimated Glomerular Filt Rate 94 ml/min
[2023-02-11 09:42] LABS: Alanine Aminotransferase* 32 U/L (4-35); Alkaline Phosphatase* 100 U/L (40-150); Aspartate Amino Transferase* 48 U/L (12-35); Blood Urea Nitrogen* 7 mg/dL (7-30); Calcium* 8.8 mg/dL (8.4-10.6); Glucose* 120 mg/dL (60-115); Total Protein* 5.8 g/dL (6.0-8.3)
[2023-02-11 10:12] LABS: Total Protein Urine 5 mg/dL
[2023-02-11 10:13] LABS: Creatinine Urine 142.8 mg/dL
[2023-02-11] MEDS: 0.9 % SODIUM CHLORIDE 250 ml IV (10:45)
--- NOTE | 2023-02-11 11:24 | PC.NURSE ---
Pt present at [facility] today for labs and consideration of chemotherapy. Dose held last week due to low ANC, urine protein 2+, and K 2.5. Pt received IV potassium last week on Saturday and . Today's K 3.5. Christie also takes oral potassium (30 mEq daily) and she will continue doing that. ANC 3.3 and urine protein/cr ratio 0.0. OK to proceed with treatment today. OF NOTE: due to a nation wide shortage of Leucovorin, [facility] is using 100 mg of Leucovorin as opposed to 400 mg/m2. This was communicated to [facility].
[2023-02-11] MEDS: PALONOSETRON 0.25 MG/5 ML inj IV (11:39)
[2023-02-11] MEDS: dexAMETHasone 10 MG in 0.9 % SODIUM CHLORIDE 100 ml 100 ML 420 MG IVPB (11:39)
[2023-02-11] MEDS: 5 % DEXTROSE 250 ML IV (12:10)
[2023-02-11] MEDS: LEUCOVORIN CALCIUM 100 MG, TUBING SECONDARY 1 EACH in 5 % DEXTROSE 250 ML 250 ML 170 MG IV (12:13)
[2023-02-13 11:53] VITALS: BP 169/83; PULSE 57; RESP 16; TEMP 36; O2SAT 97
--- NOTE | 2023-02-13 13:06 | ONC.NURNOTE ---
pealing on the rt thumb. no open areas. 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 pre existing edema ble. states no increase in and didnt wear her support hoses today.
[2023-02-13] MEDS: 5 % DEXTROSE 250 ML IV (13:18)
[2023-02-13] MEDS: SODIUM CHLORIDE 0.9 % (FLUSH) 10 ML SYRINGE IVF (13:18)
[2023-02-25 09:01] LABS: Basophils Absolute Auto 0.05 K/uL (0.00-0.30); Basophils Percent Auto 0.9 % (0.0-3.0); Eosinophils Percent Auto 24.7 % (0.0-7.0); Hematocrit 39.1 % (33.0-51.0); Hemoglobin* 12.8 gm/dL (12.0-16.0); Immature Granulocytes Abs Auto 0.02 K/uL (0.00-0.30); Immature Granulocytes Pct Auto 0.3 %; Lymphocytes Absolute Auto 1.82 K/uL (0.90-2.90); Mean Corpuscular HGB Conc 33 gm/dL (32-36); Mean Corpuscular Hemoglobin 33 pg (26-34); Mean Corpuscular Volume 101 fL (80-100); Neutrophils Percent Auto 34.1 % (42.0-72.0); Platelet Count* 224 K/uL (140-440); RDW Coefficient of Variation % 16.8 % (11.5-15.5); Red Blood Count 3.87 m/uL (4.00-5.20); White Blood Count* 5.87 K/uL (4.50-11.00)
[2023-02-25 09:04] LABS: Slide Review Reflex No
[2023-02-25 09:31] LABS: Anion Gap 9 mEq/L (7-15); Blood Urea Nitrogen* 11 mg/dL (7-30); Calcium* 9.1 mg/dL (8.4-10.6); Carbon Dioxide* 26 mmol/L (20-32); Chloride* 104 mmol/L (96-114); Creatinine* 0.8 mg/dL (0.5-1.5); Est. Creatinine Clearance* 47.27; Estimated Glomerular Filt Rate 77 ml/min; Potassium* 3.8 mmol/L (3.6-5.1); Sodium* 139 mmol/L (135-149)
[2023-02-25 09:32] LABS: Alanine Aminotransferase* 38 U/L (4-35); Albumin* 3.9 g/dL (3.3-5.0); Alkaline Phosphatase* 69 U/L (40-150); Aspartate Amino Transferase* 30 U/L (12-35); Bilirubin Total* 0.4 mg/dL (0.1-1.5); Glucose* 140 mg/dL (60-115); Total Protein* 6.4 g/dL (6.0-8.3)
[2023-02-25 09:39] LABS: Appearance Urine Slightly Cloudy (Clear); Bilirubin Urine Negative (Negative); Blood Urine Negative (Negative); Color Urine Yellow (Yellow); Glucose Urine Negative (Negative); Ketones Urine Negative (Negative); Leukocyte Esterase Urine Negative (Negative); Nitrite Urine Negative (Negative); Protein Urine Negative (Negative); Specific Gravity Urine 1.025 (1.000-1.030); Urobilinogen Urine 0.2 (0.2-1.0); pH Urine 5.5 (5.0-8.5)
[2023-02-25 10:17] LABS: Bacteria Urine Few; RBC Urine 0-2 (0-2); Squamous Epithelial Cell Urine Few (None-Few); WBC Urine 0-2 (0-5)
[2023-02-25] MEDS: 0.9 % SODIUM CHLORIDE 250 ml IV (10:53)
[2023-02-25] MEDS: SODIUM CHLORIDE 0.9 % (FLUSH) 10 ML SYRINGE IVF (10:53)
[2023-02-25] MEDS: PALONOSETRON 0.25 MG/5 ML inj IV (10:53)
[2023-02-25] MEDS: dexAMETHasone 10 MG in 0.9 % SODIUM CHLORIDE 100 ml 100 ML 404 MG IVPB (10:53)
[2023-02-25] MEDS: LEUCOVORIN CALCIUM 100 MG, TUBING SECONDARY 1 EACH in 5 % DEXTROSE 250 ML 250 ML 170 MG IV (11:55)
[2023-02-27 10:56] VITALS: BP 170/83; PULSE 66; RESP 16; TEMP 34.8; O2SAT 99
--- NOTE | 2023-02-27 15:07 | ONC.NURNOTE ---
Pt here today for Cadd pump removal; feeling well, denies nausea, no concerns.
[2023-03-11 10:59] LABS: Chloride* 104 mmol/L (96-114); Potassium* 3.4 mmol/L (3.6-5.1); Sodium* 136 mmol/L (135-149)
[2023-03-11 11:01] LABS: Anion Gap 6 mEq/L (7-15); Aspartate Amino Transferase* 33 U/L (12-35); Basophils Absolute Auto 0.07 K/uL (0.00-0.30); Basophils Percent Auto 1.3 % (0.0-3.0); Bilirubin Total* 0.3 mg/dL (0.1-1.5); Carbon Dioxide* 26 mmol/L (20-32); Creatinine* 0.8 mg/dL (0.5-1.5); Eosinophils Percent Auto 10.3 % (0.0-7.0); Est. Creatinine Clearance* 47.27; Estimated Glomerular Filt Rate 77 ml/min; Hemoglobin* 12.5 gm/dL (12.0-16.0); Immature Granulocytes Abs Auto 0.04 K/uL (0.00-0.30); Immature Granulocytes Pct Auto 0.8 %; Lymphocytes Percent Auto 37.1 % (20-44); Mean Corpuscular HGB Conc 33 gm/dL (32-36); Mean Corpuscular Hemoglobin 33 pg (26-34); Mean Corpuscular Volume 102 fL (80-100); Monocytes Percent Auto 13.2 % (0.0-11.0); Neutrophils Percent Auto 37.3 % (42.0-72.0); Platelet Count* 278 K/uL (140-440); RDW Coefficient of Variation % 16.9 % (11.5-15.5); Red Blood Count 3.74 m/uL (4.00-5.20); Slide Review Reflex No; White Blood Count* 5.23 K/uL (4.50-11.00)
[2023-03-11 11:02] LABS: Alanine Aminotransferase* 36 U/L (4-35); Alkaline Phosphatase* 66 U/L (40-150); Blood Urea Nitrogen* 13 mg/dL (7-30); Calcium* 9.1 mg/dL (8.4-10.6); Glucose* 126 mg/dL (60-115); Total Protein* 6.4 g/dL (6.0-8.3)
[2023-03-11 11:49] LABS: Creatinine Urine 339.2 mg/dL; Total Protein Urine 7 mg/dL
[2023-03-11] MEDS: 0.9 % SODIUM CHLORIDE 250 ml IV (12:35)
[2023-03-11] MEDS: dexAMETHasone 10 MG in 0.9 % SODIUM CHLORIDE 100 ml 100 ML 404 MG IVPB (13:10)
[2023-03-11] MEDS: PALONOSETRON 0.25 MG/5 ML inj IV (13:10)
[2023-03-11] MEDS: LEUCOVORIN CALCIUM 100 MG, TUBING SECONDARY 1 EACH in 5 % DEXTROSE 250 ML 250 ML 170 MG IV (13:30)
[2023-03-11] MEDS: SODIUM CHLORIDE 0.9 % (FLUSH) 10 ML SYRINGE IVF (15:29)
[2023-03-13 12:19] VITALS: BP 174/90; PULSE 59; RESP 16; TEMP 35.9; O2SAT 98
[2023-03-13] MEDS: HEPARIN 500 UNIT/5 ML SYRINGE IVF (14:07)
--- NOTE | 2023-03-18 08:36 | ONC.NURNOTE ---
Pt's called stating their son was diagnosed with E.coli and c.diff and he has been around pt. They are wondering if pt should be tested as well. Pt has been having approx 2 loose stools per day. Health Information Clerk recommended having pt contact primary care to be tested. Pt's verbalized understanding of plan of care. Health Information Clerk updated Thi Watson APRN.
[2023-03-26 09:37] VITALS: BP 148/81; PULSE 65; RESP 16; TEMP 35.6; O2SAT 97
[2023-03-26 10:15] LABS: Basophils Percent Auto 0.9 % (0.0-3.0); Eosinophils Percent Auto 19.1 % (0.0-7.0); Hematocrit 38.2 % (33.0-51.0); Hemoglobin* 12.7 gm/dL (12.0-16.0); Immature Granulocytes Pct Auto 0.2 %; Lymphocytes Percent Auto 32.9 % (20-44); Mean Corpuscular HGB Conc 33 gm/dL (32-36); Mean Corpuscular Hemoglobin 34 pg (26-34); Mean Corpuscular Volume 103 fL (80-100); Neutrophils Percent Auto 34.9 % (42.0-72.0); Platelet Count* 221 K/uL (140-440); RDW Coefficient of Variation % 16.4 % (11.5-15.5); White Blood Count* 4.25 K/uL (4.50-11.00)
[2023-03-26 10:16] LABS: Slide Review Reflex No
[2023-03-26 10:28] LABS: Albumin* 3.8 g/dL (3.3-5.0); Chloride* 102 mmol/L (96-114)
[2023-03-26 10:29] LABS: Potassium* 3.4 mmol/L (3.6-5.1); Sodium* 136 mmol/L (135-149)
[2023-03-26 10:31] LABS: Alkaline Phosphatase* 68 U/L (40-150); Anion Gap 9 mEq/L (7-15); Aspartate Amino Transferase* 35 U/L (12-35); Bilirubin Total* 0.5 mg/dL (0.1-1.5); Blood Urea Nitrogen* 9 mg/dL (7-30); Carbon Dioxide* 25 mmol/L (20-32); Creatinine* 0.7 mg/dL (0.5-1.5); Est. Creatinine Clearance* 46.54; Estimated Glomerular Filt Rate 90 ml/min; Total Protein* 6.2 g/dL (6.0-8.3)
[2023-03-26 10:32] LABS: Total Protein Urine 8 mg/dL
[2023-03-26 10:32] LABS: Alanine Aminotransferase* 42 U/L (4-35); Calcium* 8.9 mg/dL (8.4-10.6); Glucose* 127 mg/dL (60-115)
[2023-03-26 10:33] LABS: Creatinine Urine 168.8 mg/dL
[2023-03-26] MEDS: dexAMETHasone 10 MG in 0.9 % SODIUM CHLORIDE 100 ml 100 ML 404 MG IVPB (12:43)
[2023-03-26] MEDS: PALONOSETRON 0.25 MG/5 ML inj IV (12:43)
[2023-03-26] MEDS: LEUCOVORIN CALCIUM 100 MG, TUBING SECONDARY 1 EACH in 5 % DEXTROSE 250 ML 250 ML 170 MG IV (13:09)
--- NOTE | 2023-03-26 16:23 | ONC.NURNOTE ---
Pt here for Zirabev and folfiri. VSS. Discussed with Thi Watson APRN ANC of 1.5, order received okay to proceed with chemotherapy today with ANC of 1.5 as patient is a candidate for surgery. Also discussed low potassium, order received to increase potassium to 20 meq TID x3 days, then resume to BID. Pt has been having 1-2 loose BM per day and has been taking her potassium. Pt also c/o sore mouth 3-4 after chemotherapy, script for viscous lidocaine sent to pt's pharmacy by Thi Watson APRN.
[2023-03-28 12:17] VITALS: BP 147/82; PULSE 57; RESP 16; TEMP 35.8; O2SAT 99
[2023-04-03 14:12] LABS: Eosinophils Percent Auto 12.8 % (0.0-7.0); Hemoglobin* 12.4 gm/dL (12.0-16.0); Immature Granulocytes Pct Auto 0.3 %; Lymphocytes Percent Auto 45.9 % (20-44); Mean Corpuscular HGB Conc 33 gm/dL (32-36); Mean Corpuscular Hemoglobin 34 pg (26-34); Mean Corpuscular Volume 104 fL (80-100); Monocytes Percent Auto 7.2 % (0.0-11.0); Neutrophils Percent Auto 32.8 % (42.0-72.0); Platelet Count* 221 K/uL (140-440); RDW Coefficient of Variation % 15.1 % (11.5-15.5); Red Blood Count 3.67 m/uL (4.00-5.20)
[2023-04-03 14:17] LABS: Slide Review Reflex No
[2023-04-03 14:28] LABS: Creatinine* 0.8 mg/dL (0.5-1.5); Est. Creatinine Clearance* 46.54; Estimated Glomerular Filt Rate 76 ml/min
--- NOTE | 2023-04-04 09:19 | ONC.NURNOTE ---
Pt came in 04/03/23 afternoon for recheck of CBC and potassium, and creatinine due to concerns of neutropenia and low potassium. Labs reviewed by Thi Mckee APRN this am, not concerns with labs at this time and pt doing well. Pt to return next week for labs and chemo.
[2023-04-08 08:36] LABS: Basophils Absolute Auto 0.04 K/uL (0.00-0.30); Basophils Percent Auto 0.8 % (0.0-3.0); Eosinophils Percent Auto 8.9 % (0.0-7.0); Hematocrit 37.5 % (33.0-51.0); Hemoglobin* 12.3 gm/dL (12.0-16.0); Immature Granulocytes Abs Auto 0.01 K/uL (0.00-0.30); Immature Granulocytes Pct Auto 0.2 %; Lymphocytes Absolute Auto 1.97 K/uL (0.90-2.90); Lymphocytes Percent Auto 37.1 % (20-44); Mean Corpuscular HGB Conc 33 gm/dL (32-36); Mean Corpuscular Hemoglobin 35 pg (26-34); Mean Corpuscular Volume 105 fL (80-100); Monocytes Percent Auto 11.7 % (0.0-11.0); Neutrophils Percent Auto 41.3 % (42.0-72.0); Platelet Count* 233 K/uL (140-440); RDW Coefficient of Variation % 15.9 % (11.5-15.5); Red Blood Count 3.56 m/uL (4.00-5.20); White Blood Count* 5.31 K/uL (4.50-11.00)
[2023-04-08 08:41] LABS: Slide Review Reflex No
[2023-04-08 08:52] LABS: Albumin* 3.9 g/dL (3.3-5.0); Chloride* 104 mmol/L (96-114)
[2023-04-08 08:53] LABS: Potassium* 3.5 mmol/L (3.6-5.1); Sodium* 138 mmol/L (135-149)
[2023-04-08 08:55] LABS: Anion Gap 9 mEq/L (7-15); Aspartate Amino Transferase* 34 U/L (12-35); Bilirubin Total* 0.4 mg/dL (0.1-1.5); Carbon Dioxide* 25 mmol/L (20-32); Creatinine* 0.8 mg/dL (0.5-1.5); Est. Creatinine Clearance* 46.54; Estimated Glomerular Filt Rate 76 ml/min
[2023-04-08 08:56] LABS: Alanine Aminotransferase* 41 U/L (4-35); Alkaline Phosphatase* 71 U/L (40-150); Blood Urea Nitrogen* 14 mg/dL (7-30); Calcium* 8.9 mg/dL (8.4-10.6); Glucose* 134 mg/dL (60-115); Total Protein* 6.3 g/dL (6.0-8.3)
[2023-04-08 10:20] LABS: Total Protein Urine < 5 mg/dL
[2023-04-08] MEDS: 0.9 % SODIUM CHLORIDE 250 ml IV (10:29)
[2023-04-08] MEDS: SODIUM CHLORIDE 0.9 % (FLUSH) 10 ML SYRINGE IVF ×2 (10:29→13:56)
[2023-04-08] MEDS: dexAMETHasone 10 MG in 0.9 % SODIUM CHLORIDE 100 ml 100 ML 420 MG IVPB (11:32)
[2023-04-08] MEDS: PALONOSETRON 0.25 MG/5 ML inj IV (11:33)
[2023-04-08] MEDS: 5 % DEXTROSE 250 ML IV (11:56)
[2023-04-08] MEDS: LEUCOVORIN CALCIUM 100 MG, TUBING SECONDARY 1 EACH in 5 % DEXTROSE 250 ML 250 ML 170 MG IV (11:57)
[2023-04-10 10:53] VITALS: BP 157/80; PULSE 60; RESP 16; TEMP 35.9; O2SAT 99
[2023-04-10] MEDS: HEPARIN 500 UNIT/5 ML SYRINGE IVF (10:59)
[2023-04-10] MEDS: SODIUM CHLORIDE 0.9 % (FLUSH) 10 ML SYRINGE IVF (10:59)
[2023-04-22 09:00] VITALS: BP 125/80; PULSE 60; RESP 15; TEMP 35.5; O2SAT 99
[2023-04-22 09:30] LABS: Basophils Absolute Auto 0.05 K/uL (0.00-0.30); Basophils Percent Auto 1.1 % (0.0-3.0); Eosinophils Percent Auto 8.3 % (0.0-7.0); Hematocrit 37.2 % (33.0-51.0); Hemoglobin* 12.1 gm/dL (12.0-16.0); Immature Granulocytes Abs Auto 0.02 K/uL (0.00-0.30); Immature Granulocytes Pct Auto 0.4 %; Lymphocytes Absolute Auto 1.85 K/uL (0.90-2.90); Lymphocytes Percent Auto 39.3 % (20-44); Mean Corpuscular HGB Conc 33 gm/dL (32-36); Mean Corpuscular Hemoglobin 34 pg (26-34); Mean Corpuscular Volume 105 fL (80-100); Monocytes Percent Auto 13.2 % (0.0-11.0); Neutrophils Percent Auto 37.7 % (42.0-72.0); Platelet Count* 235 K/uL (140-440); RDW Coefficient of Variation % 15.6 % (11.5-15.5); Red Blood Count 3.55 m/uL (4.00-5.20); White Blood Count* 4.71 K/uL (4.50-11.00)
[2023-04-22 09:34] LABS: Slide Review Reflex No
[2023-04-22 09:42] LABS: Albumin* 3.6 g/dL (3.3-5.0); Chloride* 106 mmol/L (96-114); Potassium* 3.4 mmol/L (3.6-5.1); Sodium* 139 mmol/L (135-149)
[2023-04-22 09:45] LABS: Alkaline Phosphatase* 75 U/L (40-150); Anion Gap 9 mEq/L (7-15); Aspartate Amino Transferase* 32 U/L (12-35); Bilirubin Total* 0.3 mg/dL (0.1-1.5); Blood Urea Nitrogen* 10 mg/dL (7-30); Carbon Dioxide* 24 mmol/L (20-32); Creatinine* 0.7 mg/dL (0.5-1.5); Est. Creatinine Clearance* 46.54; Estimated Glomerular Filt Rate 90 ml/min; Glucose* 122 mg/dL (60-115)
[2023-04-22 09:46] LABS: Alanine Aminotransferase* 34 U/L (4-35); Calcium* 8.7 mg/dL (8.4-10.6)
[2023-04-22 09:57] LABS: Creatinine Urine 220.2 mg/dL; Total Protein Urine < 5 mg/dL
[2023-04-22] MEDS: dexAMETHasone 10 MG in 0.9 % SODIUM CHLORIDE 100 ml 100 ML 404 MG IVPB (11:22)
[2023-04-22] MEDS: PALONOSETRON 0.25 MG/5 ML inj IV (11:22)
[2023-04-22] MEDS: 0.9 % SODIUM CHLORIDE 250 ml IV (11:23)
[2023-04-22] MEDS: SODIUM CHLORIDE 0.9 % (FLUSH) 10 ML SYRINGE IVF (11:23)
[2023-04-22] MEDS: LEUCOVORIN CALCIUM 100 MG, TUBING SECONDARY 1 EACH in 5 % DEXTROSE 250 ML 250 ML 170 MG IV (12:00)
[2023-04-24 10:32] VITALS: BP 162/91; PULSE 64; RESP 16; TEMP 36.5; O2SAT 98
[2023-04-24] MEDS: HEPARIN 500 UNIT/5 ML SYRINGE IVF (12:54)
[2023-04-24] MEDS: SODIUM CHLORIDE 0.9 % (FLUSH) 10 ML SYRINGE IVF (12:54)
[2023-05-06 15:38] LABS: Basophils Absolute Auto 0.05 K/uL (0.00-0.30); Basophils Percent Auto 0.9 % (0.0-3.0); Eosinophils Percent Auto 8.7 % (0.0-7.0); Hemoglobin* 12.6 gm/dL (12.0-16.0); Immature Granulocytes Abs Auto 0.04 K/uL (0.00-0.30); Immature Granulocytes Pct Auto 0.7 %; Lymphocytes Absolute Auto 1.77 K/uL (0.90-2.90); Lymphocytes Percent Auto 32.1 % (20-44); Mean Corpuscular HGB Conc 33 gm/dL (32-36); Mean Corpuscular Hemoglobin 34 pg (26-34); Mean Corpuscular Volume 103 fL (80-100); Monocytes Percent Auto 12.7 % (0.0-11.0); Neutrophils Absolute Auto 2.47 K/uL (1.7-7.0); Neutrophils Percent Auto 44.9 % (42.0-72.0); Platelet Count* 216 K/uL (140-440); RDW Coefficient of Variation % 15.2 % (11.5-15.5); Red Blood Count 3.69 m/uL (4.00-5.20); White Blood Count* 5.51 K/uL (4.50-11.00)
[2023-05-06 15:55] LABS: Albumin* 3.9 g/dL (3.3-5.0); Chloride* 102 mmol/L (96-114); Potassium* 3.1 mmol/L (3.6-5.1); Sodium* 138 mmol/L (135-149)
[2023-05-06 15:56] LABS: Creatinine* 0.8 mg/dL (0.5-1.5); Est. Creatinine Clearance* 46.54; Estimated Glomerular Filt Rate 76 ml/min
[2023-05-06 15:57] LABS: Alanine Aminotransferase* 35 U/L (4-35); Alkaline Phosphatase* 83 U/L (40-150); Anion Gap 11 mEq/L (7-15); Aspartate Amino Transferase* 35 U/L (12-35); Bilirubin Total* 0.5 mg/dL (0.1-1.5); Blood Urea Nitrogen* 12 mg/dL (7-30); Calcium* 8.5 mg/dL (8.4-10.6); Carbon Dioxide* 25 mmol/L (20-32); Glucose* 128 mg/dL (60-115); Total Protein* 6.1 g/dL (6.0-8.3)
[2023-05-06 15:59] LABS: Total Protein Urine 20 mg/dL
[2023-05-06 16:00] LABS: Creatinine Urine 187.5 mg/dL
[2023-05-06 16:05] LABS: Slide Review Reflex No
[2023-05-07 10:07] VITALS: BP 132/81; PULSE 64; RESP 16; TEMP 35.8; O2SAT 100
[2023-05-07] MEDS: SODIUM CHLORIDE 0.9 % (FLUSH) 10 ML SYRINGE IVF ×2 (10:55→14:48)
[2023-05-07] MEDS: 0.9 % SODIUM CHLORIDE 250 ml IV (11:00)
[2023-05-07] MEDS: POTASSIUM CHLORIDE 10 MEQ/100 ML PIGGYBACK 100 MEQ IVPB ×2 (11:33→12:37)
[2023-05-07] MEDS: dexAMETHasone 10 MG in 0.9 % SODIUM CHLORIDE 100 ml 100 ML 420 MG IVPB (13:44)
[2023-05-07] MEDS: PROCHLORPERAZINE 5 MG/ML VIAL 10 MG IV (13:44)
[2023-05-09 12:56] VITALS: BP 147/81; PULSE 62; RESP 16; TEMP 36.5; O2SAT 98
[2023-05-09] MEDS: SODIUM CHLORIDE 0.9 % (FLUSH) 10 ML SYRINGE IVF ×2 (13:33→16:29)
[2023-05-09] MEDS: ALTEPLASE 2 MG INJ IVF (13:53)
[2023-05-09 14:13] LABS: Potassium* 3.1 mmol/L (3.6-5.1)
[2023-05-09 14:32] LABS: Creatinine Urine 90.3 mg/dL; Total Protein Urine 8 mg/dL
[2023-05-09 14:35] LABS: Collection Time Urine 24 Hours; Total Volume 24 Hour Urine 1100 ml; Urine Creatinine mg/24 Hour 0 mg/Day
[2023-05-09] MEDS: POTASSIUM CHLORIDE 10 MEQ/100 ML PIGGYBACK 100 MEQ IVPB ×2 (14:37→15:25)
[2023-05-09] MEDS: 0.9 % SODIUM CHLORIDE 250 ml IV (14:40)
--- NOTE | 2023-05-09 15:31 | ONC.NURNOTE ---
Cathflo was successful. 10cc of blood drawn back and wasted. Flushed with 20cc saline.
--- NOTE | 2023-05-09 15:49 | PC.NURSE ---
Writing note on behalf of DON chapa. Patient to take 3 doses of potassium on this week and then back to normal schedule after this weekend. Patient's normal dose: takes 20meq of potassium BID on all days but on patient takes 20meq TID. Patient to call us if she develops diarrhea to come in and have potassium checked.
[2023-05-09] MEDS: HEPARIN 500 UNIT/5 ML SYRINGE IVF (16:29)
[2023-05-11 14:39] LABS: Total Protein Urine 7 mg/dL
[2023-05-11 14:40] LABS: Creatinine Urine 92.3 mg/dL
[2023-05-20 10:03] VITALS: BP 136/85; PULSE 66; RESP 16; TEMP 35.5; O2SAT 99
[2023-05-20 10:25] LABS: Basophils Absolute Auto 0.04 K/uL (0.00-0.30); Basophils Percent Auto 0.6 % (0.0-3.0); Eosinophils Percent Auto 6.4 % (0.0-7.0); Hematocrit 41.1 % (33.0-51.0); Hemoglobin* 13.2 gm/dL (12.0-16.0); Immature Granulocytes Abs Auto 0.01 K/uL (0.00-0.30); Immature Granulocytes Pct Auto 0.2 %; Lymphocytes Absolute Auto 1.85 K/uL (0.90-2.90); Lymphocytes Percent Auto 29.5 % (20-44); Mean Corpuscular HGB Conc 32 gm/dL (32-36); Mean Corpuscular Hemoglobin 34 pg (26-34); Mean Corpuscular Volume 105 fL (80-100); Monocytes Percent Auto 12.4 % (0.0-11.0); Neutrophils Absolute Auto 3.19 K/uL (1.7-7.0); Neutrophils Percent Auto 50.9 % (42.0-72.0); Platelet Count* 193 K/uL (140-440); RDW Coefficient of Variation % 15.4 % (11.5-15.5); White Blood Count* 6.27 K/uL (4.50-11.00)
[2023-05-20 10:27] LABS: Slide Review Reflex No
[2023-05-20] MEDS: SODIUM CHLORIDE 0.9 % (FLUSH) 10 ML SYRINGE IVF (10:30)
[2023-05-20 10:34] LABS: Chloride* 103 mmol/L (96-114); Sodium* 137 mmol/L (135-149)
[2023-05-20 10:36] LABS: Bilirubin Total* 0.5 mg/dL (0.1-1.5); Creatinine* 0.7 mg/dL (0.5-1.5); Est. Creatinine Clearance* 46.54; Estimated Glomerular Filt Rate 90 ml/min
[2023-05-20 10:37] LABS: Alanine Aminotransferase* 33 U/L (4-35); Alkaline Phosphatase* 83 U/L (40-150); Anion Gap 7 mEq/L (7-15); Aspartate Amino Transferase* 35 U/L (12-35); Blood Urea Nitrogen* 12 mg/dL (7-30); Calcium* 9.5 mg/dL (8.4-10.6); Carbon Dioxide* 27 mmol/L (20-32); Glucose* 129 mg/dL (60-115); Total Protein* 6.6 g/dL (6.0-8.3)
[2023-05-20 10:39] LABS: Total Protein Urine 11 mg/dL
[2023-05-20 10:40] LABS: Creatinine Urine 269.9 mg/dL
[2023-05-20] MEDS: 0.9 % SODIUM CHLORIDE 250 ml IV (11:15)
[2023-05-20] MEDS: dexAMETHasone 10 MG in 0.9 % SODIUM CHLORIDE 100 ml 100 ML 404 MG IVPB (12:17)
[2023-05-20] MEDS: PROCHLORPERAZINE 5 MG/ML VIAL 10 MG IV (12:18)
[2023-05-20] MEDS: LEUCOVORIN CALCIUM 100 MG, TUBING SECONDARY 1 EACH in 5 % DEXTROSE 250 ML 250 ML 510 MG IV (12:41)
[2023-05-22 13:21] VITALS: BP 177/89; PULSE 56; RESP 17; TEMP 36.1; O2SAT 98
[2023-05-22] MEDS: HEPARIN 500 UNIT/5 ML SYRINGE IVF (13:34)
[2023-05-22] MEDS: SODIUM CHLORIDE 0.9 % (FLUSH) 10 ML SYRINGE IVF (13:34)
[2023-06-04 10:28] VITALS: BP 145/73; PULSE 55; RESP 16; TEMP 35.8; O2SAT 98
[2023-06-04 10:59] LABS: Basophils Absolute Auto 0.04 K/uL (0.00-0.30); Basophils Percent Auto 0.6 % (0.0-3.0); Eosinophils Percent Auto 10.3 % (0.0-7.0); Hemoglobin* 12.9 gm/dL (12.0-16.0); Immature Granulocytes Abs Auto 0.01 K/uL (0.00-0.30); Immature Granulocytes Pct Auto 0.2 %; Lymphocytes Absolute Auto 1.76 K/uL (0.90-2.90); Mean Corpuscular HGB Conc 32 gm/dL (32-36); Mean Corpuscular Hemoglobin 34 pg (26-34); Mean Corpuscular Volume 104 fL (80-100); Monocytes Percent Auto 12.7 % (0.0-11.0); Neutrophils Percent Auto 49.2 % (42.0-72.0); Platelet Count* 149 K/uL (140-440); RDW Coefficient of Variation % 15.2 % (11.5-15.5); Red Blood Count 3.85 m/uL (4.00-5.20); White Blood Count* 6.51 K/uL (4.50-11.00)
[2023-06-04] MEDS: SODIUM CHLORIDE 0.9 % (FLUSH) 10 ML SYRINGE IVF (11:00)
[2023-06-04 11:05] LABS: Slide Review Reflex No
[2023-06-04 11:28] LABS: Albumin* 3.9 g/dL (3.3-5.0); Chloride* 106 mmol/L (96-114)
[2023-06-04 11:29] LABS: Potassium* 3.6 mmol/L (3.6-5.1); Sodium* 138 mmol/L (135-149)
[2023-06-04 11:31] LABS: Anion Gap 9 mEq/L (7-15); Aspartate Amino Transferase* 31 U/L (12-35); Bilirubin Total* 0.4 mg/dL (0.1-1.5); Carbon Dioxide* 23 mmol/L (20-32); Creatinine* 0.7 mg/dL (0.5-1.5); Est. Creatinine Clearance* 46.54; Estimated Glomerular Filt Rate 90 ml/min; Total Protein* 6.3 g/dL (6.0-8.3)
[2023-06-04 11:32] LABS: Alanine Aminotransferase* 31 U/L (4-35); Alkaline Phosphatase* 97 U/L (40-150); Blood Urea Nitrogen* 10 mg/dL (7-30); Calcium* 9.2 mg/dL (8.4-10.6); Glucose* 121 mg/dL (60-115)
[2023-06-04 11:59] LABS: Total Protein Urine < 5 mg/dL
[2023-06-04 12:00] LABS: Creatinine Urine 118.6 mg/dL
[2023-06-04] MEDS: 0.9 % SODIUM CHLORIDE 250 ml IV (12:20)
[2023-06-04] MEDS: PROCHLORPERAZINE 5 MG/ML VIAL 10 MG IV (13:30)
[2023-06-04] MEDS: dexAMETHasone 10 MG in 0.9 % SODIUM CHLORIDE 100 ml 100 ML 404 MG IVPB (13:30)
[2023-06-04] MEDS: LEUCOVORIN CALCIUM 100 MG, TUBING SECONDARY 1 EACH in 5 % DEXTROSE 250 ML 250 ML 510 MG IV (13:52)
[2023-06-06] MEDS: HEPARIN 500 UNIT/5 ML SYRINGE IVF (12:50)
[2023-06-06] MEDS: SODIUM CHLORIDE 0.9 % (FLUSH) 10 ML SYRINGE IVF (12:50)
[2023-06-18] MEDS: SODIUM CHLORIDE 0.9 % (FLUSH) 10 ML SYRINGE IVF (10:00)
[2023-06-18 10:21] LABS: Basophils Absolute Auto 0.04 K/uL (0.00-0.30); Basophils Percent Auto 0.6 % (0.0-3.0); Eosinophils Percent Auto 7.6 % (0.0-7.0); Hemoglobin* 13.8 gm/dL (12.0-16.0); Immature Granulocytes Abs Auto 0.01 K/uL (0.00-0.30); Immature Granulocytes Pct Auto 0.2 %; Lymphocytes Percent Auto 29.3 % (20-44); Mean Corpuscular HGB Conc 33 gm/dL (32-36); Mean Corpuscular Hemoglobin 34 pg (26-34); Mean Corpuscular Volume 104 fL (80-100); Monocytes Percent Auto 11.7 % (0.0-11.0); Neutrophils Absolute Auto 3.29 K/uL (1.7-7.0); Neutrophils Percent Auto 50.6 % (42.0-72.0); Platelet Count* 156 K/uL (140-440); RDW Coefficient of Variation % 15.2 % (11.5-15.5); Red Blood Count 4.05 m/uL (4.00-5.20); White Blood Count* 6.49 K/uL (4.50-11.00)
[2023-06-18 10:23] LABS: Slide Review Reflex No
[2023-06-18 10:36] LABS: Chloride* 106 mmol/L (96-114)
[2023-06-18 10:37] LABS: Potassium* 3.7 mmol/L (3.6-5.1); Sodium* 139 mmol/L (135-149)
[2023-06-18 10:39] LABS: Anion Gap 8 mEq/L (7-15); Carbon Dioxide* 25 mmol/L (20-32); Creatinine* 0.7 mg/dL (0.5-1.5); Est. Creatinine Clearance* 46.54; Estimated Glomerular Filt Rate 90 ml/min
[2023-06-18 10:40] LABS: Alanine Aminotransferase* 30 U/L (4-35); Alkaline Phosphatase* 74 U/L (40-150); Aspartate Amino Transferase* 29 U/L (12-35); Bilirubin Total* 0.5 mg/dL (0.1-1.5); Blood Urea Nitrogen* 11 mg/dL (7-30); Calcium* 9.5 mg/dL (8.4-10.6); Glucose* 120 mg/dL (60-115); Total Protein* 6.3 g/dL (6.0-8.3)
[2023-06-18 11:47] LABS: Total Protein Urine < 5 mg/dL
[2023-06-18 11:48] LABS: Creatinine Urine 109.3 mg/dL
[2023-06-18] MEDS: 0.9 % SODIUM CHLORIDE 250 ml IV (12:30)
[2023-06-18] MEDS: PROCHLORPERAZINE 5 MG/ML VIAL 10 MG IV (13:17)
[2023-06-18] MEDS: dexAMETHasone 10 MG in 0.9 % SODIUM CHLORIDE 100 ml 100 ML 404 MG IVPB (13:18)
[2023-06-18] MEDS: LEUCOVORIN CALCIUM 100 MG, TUBING SECONDARY 1 EACH in 5 % DEXTROSE 250 ML 250 ML 510 MG IV (13:40)
[2023-06-20 14:04] VITALS: BP 183/82; PULSE 55; RESP 16; TEMP 35.4; O2SAT 100
[2023-06-20] MEDS: HEPARIN 500 UNIT/5 ML SYRINGE IVF (14:16)
[2023-06-20] MEDS: SODIUM CHLORIDE 0.9 % (FLUSH) 10 ML SYRINGE IVF (14:16)
== END 2023-06-24 23:59 | disposition home or self-care (01) ==
LOC: CCIC 11:00
PROVIDERS: Clinical Nurse Specialist; Internal Medicine Hematology & Oncology; PCP Family Medicine; Referring Provider Family Medicine; Visit Provider Internal Medicine Hematology & Oncology
DX: C20 Malignant neoplasm of rectum (principal); C78.7 Secondary malignant neoplasm of liver and intrahepatic bile duct; C77.9 Secondary and unspecified malignant neoplasm of lymph node, unspecified
CPT/HCPCS: 36415; 36591; 80053; 81003; 81015; 82248; 82565; 82570; 83735; 84132; 84156; 85025; 87086; 96365; 96366; 96368; 96376; 96411; 96413; 96415; 96416; 96417; 99202; 99205; 99211; 99212; 99214; 99215; G0463; J0461; J0640; J0780; J1100; J1642; J2469; J2997; J3480; J7030; J7050; J7120; J9190; J9206; Q5118

== ENCOUNTER 2023-09-19 09:25 | Outpatient (CLI) | payer MEDICARE, SELFPAY ==
--- OUTSIDE RECORDS SUMMARY | 2023-09-23 18:13 | XMS_ITS | Clinical Summary ---
Author Organization [facility] Address [address] [address] Care Team Providers Care Pourer Buggy Ladle Name Role Phone Elsewhere, Pcp Primary Care Provider Unavailabl e Source Comments Patient records contain information from all sites at [facility]. For routine questions regarding patient records, call [phone] during business hours, M-F 8:00 AM - 5:00 PM Central Time. Record requests for emergency care only can be directed to [phone] at any time.[facility] Allergies Active Allergy Reactions Criticality Noted Date Comments Adhesive Tape-Silicones Other (see comments) Medications Medication Sig Dispensed Refills Start Date End Date Status cyanocobalamin (VITAMIN B12) 1,000 mcg tablet Take 1 tablet by mouth daily. 07/10/2017 Active metoprolol tartrate (LOPRESSOR) 50 mg tablet Take 1 tablet by mouth 2 (two) times a day. 07/10/2017 Active multivitamin tablet Take 1 tablet by mouth daily. 07/10/2017 Active simvastatin (ZOCOR) 20 mg tablet Take 1 tablet by mouth daily. 07/10/2017 Active omeprazole (PriLOSEC) [address] capsule Take 1 capsule by mouth daily. 02/09/2020 Active chlorthalidone (HYGROTON) 25 mg tablet Take 12.5 mg by mouth daily. Active diphenhydrAMINE-a cetaminophen (TYLENOL PM) 25-500 mg per tablet Take 0.5 tablets by mouth at bedtime as needed for sleep. Active polyethylene glycol (MIRALAX) 17 gram powder packet Take 17 g by mouth once. ONCE WEEKLY Active hydroCHLOROthiazi de (HYDRODIURIL) 12.5 mg tablet Take 12.5 mg by mouth every morning. 10/06/2022 Active prochlorperazine (COMPAZINE) 10 mg tabletIndications :Malignant Neoplasm Of Rectum (HCC),Secondary Malignant Neoplasm Liver (HCC) Take 1 tablet (10 mg total) by mouth every 6 (six) hours as needed for nausea or vomiting. 30 tablet 3 12/24/2022 12/24/2023 Active ondansetron (ZOFRAN) 8 mg tabletIndications :Malignant Neoplasm Of Rectum (HCC),Secondary Malignant Neoplasm Liver (HCC) Take 1 tablet (8 mg total) by mouth every 8 (eight) hours as needed for nausea or vomiting (unrelieved by prochlorperazine). 30 tablet 3 12/24/2022 12/24/2023 Active dexAMETHasone (DECADRON) 4 mg tabletIndications :Malignant Neoplasm Of Rectum (HCC),Secondary Malignant Neoplasm Liver (HCC) Take 2 tablets (8 mg total) by mouth daily. Take daily for 3 days, starting the day after chemotherapy ends of each cycle. 6 tablet 3 12/24/[address] tablet Take 81 mg by mouth daily. Active potassium chloride (K-TAB) 20 mEq CR tablet Take 2 tablets by mouth daily. 2 tablets on Saturday, Saturday, & Saturday. 3 tablets on Saturday, Saturday, Saturday, & . 01/23/2023 Active cholecalciferol (VITAMIN D3) 10 mcg (400 Unit) tablet VITAMIN D3 10 MCG (400 UNIT) TABS 01/01/2022 Active loperamide (IMODIUM A-D) 2 mg capsule See Admin Instructions. See attached for detailed directions. 02/04/2023 Active sertraline (ZOLOFT) 50 mg tablet Take 50 mg by mouth daily. 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 09/18/2023 Orders Only Department of Oncology in [address] [phone] Johnathan José M.D. Malignant Neoplasm Of Rectum (HCC) (Primary Dx); Secondary Malignant Neoplasm Liver (HCC) 09/17/2023 10:30 AM CDT Comprehensive Visit Division of Hepatobiliary and Pancreas Surgery in [address] [phone] Mahad Harrell M.D., Ph.D. Malignant Neoplasm Of Rectum (HCC); Secondary Malignant Neoplasm Liver (HCC) 09/12/2023 6:22 AM CDT - 09/12/2023 11:59 PM CDT Hospital Encounter Department of Radiology, [facility] in [address] [phone] Johnathan José M.D. Malignant Neoplasm Of Rectum (HCC) Discharge Disposition: Home or Self Care 09/06/2023 7:14 AM CDT - 09/06/2023 11:59 PM CDT Hospital Encounter Department of Radiology, [facility], in [address] [phone] Johnathan José M.D. Malignant Neoplasm Of Rectum (HCC) Discharge Disposition: Home or Self Care 09/05/2023 12:45 PM CDT Clinical Communication Virtual Review in [place], [place] [address] [place] [address] 07/31/2023 Clinical Communication Department of Oncology in [address] [phone] Johnathan José M.D. 07/31/2023 Orders Only Department of Oncology in [address] [phone] Dayan Garber R.N. Malignant Neoplasm Of Rectum (HCC) (Primary Dx) 07/25/2023 9:10 AM CDT Telemedicine Department of Oncology in [place], [place] [address] [place] [phone] Johnathan José M.D. Malignant Neoplasm Of Rectum (HCC) (Primary Dx); Secondary Malignant Neoplasm Liver (HCC) 07/24/2023 3:06 PM CDT - 07/24/2023 11:59 PM CDT Hospital Encounter Department of Radiology, [facility], in [address] [phone] Lew Barclay M.D., Ph.D. Malignant Neoplasm Of Rectum (HCC); Secondary Malignant Neoplasm Liver (HCC) Discharge Disposition: Home or Self Care 07/24/2023 2:00 PM CDT Lab Department of Infusion Therapy in [address] [phone] Lew Barclay M.D., Ph.D. Malignant Neoplasm Of Rectum (HCC) (Primary Dx); Secondary Malignant Neoplasm Liver (HCC) 07/23/2023 8:15 AM CDT Clinical Communication Virtual Review in [address] [phone] Pre-visit Intake 07/22/2023 Clinical Communication Department of Oncology in [address] [phone] Johnathan José M.D. Appt Request from Last 3 Months Family History Medical History Relation Name Comments Hypertension Father W L Prostate cancer Father W L Relation Name Status Comments Father W L 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 Tobacco Use Types Packs/Day Years Used Date Smoking Tobacco: Never Smokeless Tobacco: Never Tobacco Cessation:Counseling Given: Not Answered Alcohol Use Standard Drinks/Week Comments Yes 2 (1 standard drink = 0.6 oz pur e alcohol) Humiliation, Afraid, Rape, and Kick questionnair e Answer Date Recorded Within the last year, have y ou been afraid of your partner or ex-partner? No 11/22/2022 Within the last year, have y ou been humiliated or emotionally abused in other ways by your partner or ex-partner? No Within the last year, have y ou been kicked, hit, slapped, or otherwise physically hurt by your partner or ex-partner? No 11/22/2022 Within the last year, have y ou been raped or forced to have any kind of sexual activity by your partner or ex-partner? No 11/22/2022 Social Connection and Isolat ion Panel [NHANES] Answer Date Recorded In a typical week, how many times do you talk on the phone with family, friends, or neighbors? More than three times a week 09/22/2021 How often do you get togethe r with friends or relatives? More than three times a week 09/22/2021 How often do you attend chur ch or congregation services? Never 09/22/2021 Do you belong to any clubs o r organizations such as presybeterian groups, unions, fraternal or athletic groups, or school groups? No 09/22/2021 How often do you attend meet ings of the clubs or organizations you belong to? Never 09/22/2021 Are you , , di vorced, , never , or living with a partner? 09/22/2021 AUDIT-C Answer Date Recorded Q1: How often do you have a drink containing alc ohol? 2-4 times a month 09/22/2021 Q2: How many drinks containi ng alcohol do you have on a typical day when you are drinking? 1 or 2 09/22/2021 Q3: How often do you have si x or more drinks on one occasion? Never 09/22/2021 Overall Financial Resource Strain (CARDIA) Answe r Date Recorded How hard is it for you to pa y for the very basics like food, housing, medical care, and heating? Not hard at all 11/22/2022 [facility] - Occupational Stress Questionnaire Answer Date Recorded Do you feel stress - tense, restless, nervous, or anxious, or unable to sleep at night because your mind is troubled all the time - these days? To some extent 09/22/2021 Exercise Vital Sign Answer Date Recorde d On average, how many days pe r week do you engage in moderate to strenuous exercise (like a brisk walk)? 1 day 11/22/2022 On average, how many minutes do you engage in exercise at this level? 30 min 11/22/2022 Hunger Vital Sign Answer Date Recorded Within the past 12 months, y ou worried that your food would run out before you got the money to buy more. Never true 11/23/19 Within the past 12 months, t he food you bought just didn't last and you didn't have money to get more. Never true 11/22/2022 PRAPARE - Transportation Answer Date Re corded In the past 12 months, has l ack of transportation kept you from medical appointments or from getting medications? No 10/31 In the past 12 months, has l ack of transportation kept you from meetings, work, or from getting things needed for daily living? No 11/22/2022 Nutrition Answer Date Recorded On average, how many serving s of fruits and vegetables do you eat per day (serving size is equal to 1 cup or approximately the size of a tennis ball)? 0-2 11/22/2022 Dental Answer Date Recorded Dental: Regular Dentist Yes 11/23/19 Employment Answer Date Recorded Employment status Retired 11/22/2022 Housing Stability Answer Date Recorded What is your living situation today? I have a [facility] place to live 11/22/2022 Education Answer Date Recorded What is the highest level of school you have completed or the highest degree you have received? Some college, no degree 09/22/2021 Sex and Gender Information Value Date Recorded Sex Assigned at Female 09/22/2021 7:06 AM CDT Gender Identity Female 09/22/2021 7:06 AM CDT Sexual Orientation Straight 12/25/2021 10 :27 AM CDT Last Filed Vital Signs Vital Sign Reading Time Taken Comments Blood Pressure 149/82 04/26/2023 2:25 PM [employer] Pulse 65 09/12/2023 8:09 AM CDT Temperature 37.2 ??C (99 ??F) 04/26/2023 2:25 PM [employer] Respiratory Rate 15 09/12/2023 8:09 AM CDT Oxygen Saturation 96% 09/12/2023 8:09 AM CDT Inhaled Oxygen Concentration - - Weight 78.9 kg (174 lb) 09/06/2023 7:56 AM CDT Height 169.8 cm (5' 6.85) 04/26/2023 2:25 PM CS T Body Mass Index 27.37 04/26/2023 2:25 PM [employer] Plan of Treatment Upcoming Encounters Date Type Department Care Team (Latest Contact Info) Description 10/09/2023 2:30 PM CDT Clinical Communication Virtual Review in [place], [place] [address] [place] [phone] 10/14/2023 1:30 PM CDT Telemedicine Division of Colon and Rectal Surgery in [place], [place] [address] [place] [phone] Mendy Quintanilla M.D. [address] [place] [phone] 11/04/2023 10:30 AM CDT Comprehensive Visit Division of Hepatobiliary and Pancreas Surgery in [place], [place] [address] [place] [phone] Karlene Noble M.D. [address] [place] [phone] Health Maintenance Due Date Last Done Comments Hepatitis C Screening 1945 Hepatitis A Vaccines (1 of 2 - Risk 2-dose series) 1966 Zoster Vaccines (1 of 2) 1966 Hepatitis B Vaccines (1 of 3 - Risk 3-dose series) 2007 COVID-19 Vaccine ( season) 2023 01/01/2023, 08/07/2022, 12/20/2021, Additional history exists Depression Screening (Annual PHQ-2) 04/01/2023 Fall Risk Screen (Annual) 04/01/2023 Office Visit for Blood Pressure Check / Re-check 07/26/2023 04/26/2023 Creatinine Level (Kidney Function Test) 07/23/2024 07/24/2023, 04/26/2023, 02/19/2023, Additional history exists Potassium Level 07/23/2024 07/24/2023, 04/02, 02/19/2023, Additional history exists Sodium Level 07/23/2024 07/24/2023, 04/02, 02/19/2023, Additional history exists DTaP,Tdap,and Td Vaccines (2 - Td or Tdap) 08/10/2030 08/10/2020 Pneumococcal vaccine (65+ years) Completed 08/14/2021, 01/30/2019 Influenza Vaccine Completed 01/18/2023, , 01/12/2020, Additional history exists HPV Vaccines Aged Out No longer eligi ble based on patient's age to complete this topic Medical Devices Implanted Type Area Freight Caller Device Identifier Shelf Expiration Date Model / Serial / Lot Hardware E.G. Pins/Screws/R ods Hardware e.g. pins/screws/clayton s Right: Wrist Description:Titanium plate Prt Cath Infus Mri Intrmd 8f - [id number] Implanted:Qty : 1 on 12/17/2022 by Alfie Merino M.D. at [facility] Implantable [employer] 05/29/2024 [id number] / / [id number] Procedures Procedure Name Priority Date/Time Associated Diagnosis Comments MR ABDOMEN WITHOUT AND WITH IV CONTRAST RAD - Routine (most inpatients and all outpatients) 09/12/2023 7:59 AM CDT Malignant Neoplasm Of Rectum (HCC) MR PELVIS RECTAL CA STAGING WITHOUT IV CONTRAST RAD - Routine (most inpatients and all outpatients) 09/06/2023 9:11 AM CDT Malignant Neoplasm Of Rectum (HCC) CT CHEST WITH IV CONTRAST RAD - Routine (most inpatients and all outpatients) 07/24/2023 4:17 PM CDT Malignant Neoplasm Of Rectum (HCC) Secondary Malignant Neoplasm Liver (HCC) CT ABDOMEN PELVIS WITH IV CONTRAST RAD - Routine (most inpatients and all outpatients) 07/24/2023 4:17 PM CDT Malignant Neoplasm Of Rectum (HCC) Secondary Malignant Neoplasm Liver (HCC) COMPREHENSIVE METABOLIC PANEL, S/P Routine 07/24/2023 1:51 PM CDT Malignant Neoplasm Of Rectum (HCC) Secondary Malignant Neoplasm Liver (HCC) CBC WITH DIFFERENTIAL, B Routine 07/24/2023 1:51 PM CDT Malignant Neoplasm Of Rectum (HCC) Secondary Malignant Neoplasm Liver (HCC) CARCINOEMBRYONIC AG (CEA), S Routine 07/24/2023 1:51 PM CDT Malignant Neoplasm Of Rectum (HCC) Secondary Malignant Neoplasm Liver (HCC) from Last 3 Months Results * MR Abdomen without and with IV Contrast (09/12/2023 7:59 AM CDT) Anatomical Region Laterality Modality Abdomen, Abdominal RST LOS, Abdominal ARZ LOS, Abdominal FLA LOS N/A Magnetic Resonance Impressions 09/12/2023 11:12 AM CDT Several of the metastatic liver lesions seen at initial pretreatment MRI are no longer visible. Others have decreased in size. No new or enlarging liver lesion. No extrahepatic abdominal metastatic disease identified. Hepatic steatosis. Narrative 09/12/2023 11:12 AM CDT EXAM: ??MR ABDOMEN WITHOUT AND WITH IV CONTRAST COMPARISON: ??CT 07/24/2023, CT 04/26/2023, CT 02/19/2023, MRI 12/13/2022 FINDINGS: ??The three most recent restaging scans have been CT. Most recent comparison MRI was pretreatment (11/2022). Fewer metastatic liver lesions are visible today when compared to MRI 12/13/2022 (12 lesions seen today compared to 25 on the prior MRI). Those still evident have decreased in size. The largest lesions at that time of presentation measured 1.4 cm. These now measure 0.9 cm (17/39, 97). Lesions show persistent rim enhancement. No new or enlarging liver lesion. Noncirrhotic liver morphology. Hepatic steatosis with fat fraction 18-22% (normal <6%). No adenopathy or ascites. Spleen, pancreas, adrenals negative. Kidneys enhance symmetrically. No hydronephrosis. Procedure Note Chrissy Mederos M.D. - 09/12/2023 EXAM: MR ABDOMEN WITHOUT AND WITH IV CONTRAST COMPARISON: CT 07/24/2023, CT 04/26/2023, CT 02/19/2023, MRI 12/13/2022 FINDINGS: The three most recent restaging scans have been CT. Most recentcomparison MRI was pretreatment (11/2022). Fewer metastatic liver lesions are visible today when compared to MRI12/13/2022 (12 lesions seen today compared to 25 on the prior MRI). Thosestill evident have decreased in size. The largest lesions at that time ofpresentation measured 1.4 cm. These now measure 0.9 cm (17/39, 97). Lesions show persistent rim enhancement.No new or enlarging liver lesion. Noncirrhotic liver morphology. Hepaticsteatosis with fat fraction 18-22% (normal <6%). No adenopathy or ascites. Spleen, pancreas, adrenals negative. Kidneysenhance symmetrically. No hydronephrosis. IMPRESSION: Several of the metastatic liver lesions seen at initial pretreatment MRIare no longer visible. Others have decreased in size. No new or enlargingliver lesion. No extrahepatic abdominal metastatic disease identified.Hepatic steatosis. Johnathan SAM MRI PROCEDURES * MR Pelvis Rectal CA Staging without IV Contrast (09/06/2023 9:11 AM CDT) Anatomical Region Laterality Modality Pelvis, Abdominal RST LOS, A bdominal ARZ LOS, Abdominal FLA LOS N/A Magnetic Resonance Impressions 09/06/2023 9:22 AM CDT Since 11/30/2022, post treatment primary tumor assessment: Complete/near complete response. Suspicious mesorectal lymph nodes: Absent Suspicious extra mesorectal lymph nodes: ??Absent Narrative 09/06/2023 9:22 AM CDT EXAM: ??MR PELVIS RECTAL CA STAGING WITHOUT AND WITH IV CONTRAST CLINICAL INFORMATION: ??Rectal adenocarcinoma, T4bN+ diagnosed 10/2022. Treated with chemotherapy initiated 12/25/2022. COMPARISON: ??Correlation with CT 07/24/2023. Rectal MRIs 04/26/2023 and 11/30/2022 CLINICAL INFORMATION: ??Rectal Cancer RESTAGING. Pretreatment Tumor staging: ??T4bN+ Prior treatment: chemotherapy TREATED TUMOR/TUMOR BED CHARACTERISTICS (compare to pre-treatment): DWI (with associated low ADC) - restricted diffusion and low ADC in tumor or tumor bed ??is absent. MRI-T2W: ??Normalization of rectal wall FOR LOW RECTAL TUMORS: Invasion of anal sphincter complex: ??none EMVI: ??No (none evident pre-treatment) Tumor Deposits: ??No LYMPH NODES: No residual suspicious lymph nodes Other: ??Retroflexed uterus. Procedure Note Abrahan Swann M.D. - 09/06/2023 EXAM: MR PELVIS RECTAL CA STAGING WITHOUT AND WITH IV CONTRAST CLINICAL INFORMATION: Rectal adenocarcinoma, T4bN+ diagnosed 10/2022.Treated with chemotherapy initiated 12/25/2022. COMPARISON: Correlation with CT 07/24/2023. Rectal MRIs 04/26/2023 and11/30/2022 CLINICAL INFORMATION: Rectal Cancer RESTAGING. Pretreatment Tumor staging: T4bN+ Prior treatment: chemotherapy TREATED TUMOR/TUMOR BED CHARACTERISTICS (compare to pre-treatment): DWI (with associated low ADC) - restricted diffusion and low ADC in tumoror tumor bed is absent. MRI-T2W: Normalization of rectal wall FOR LOW RECTAL TUMORS: Invasion of anal sphincter complex: none EMVI: No (none evident pre-treatment) Tumor Deposits: No LYMPH NODES: No residual suspicious lymph nodes Other: Retroflexed uterus. IMPRESSION: Since 11/30/2022, post treatment primary tumor assessment: Complete/nearcomplete response. Suspicious mesorectal lymph nodes: Absent Suspicious extra mesorectal lymph nodes: Absent Johnathan José M.D. [facility] [place]ED[place] * CT Abdomen Pelvis with IV Contrast (07/24/2023 4:17 PM CDT) Anatomical Region Laterality Modality Abdomen, Pelvis, Abdominal R ST LOS, Abdominal ARZ LOS, Abdominal FLA LOS N/A Computed Tomograp hy, Computed Tomography 07/24/2023 4:03 PM CDT Impressions 07/24/2023 5:15 PM CDT 1. Previous liver metastases further slightly decreased in size since 04/26/2023. Couple of subtle tiny hypodensities in segment 6 of the right hepatic lobe not definitely seen on the prior examination, new tiny metastases a possibility. Attention on follow-up. 2. Otherwise, no evidence for metastatic disease elsewhere in the abdomen or pelvis. Narrative 07/24/2023 5:15 PM CDT EXAM: ??CT ABDOMEN PELVIS WITH IV CONTRAST COMPARISON: ??04/26/2023 FINDINGS: ??No rectal mass appreciated. No suspicious mesorectal lymph nodes. The visualized small peripheral enhancing liver metastases show further decrease in size since 04/26/2023. As examples, lesion in segment 6 right hepatic lobe (series 1, image 50) decreased from 9 mm down to 7 mm, lesion in segment 5 right hepatic lobe (series 1, image 53) measuring 5 mm, previously 7 mm, additional lesion in segment 5 (series 1, image 42) measuring 5 mm, previously 8 mm and, as a final example, lesion in the hepatic dome (series 1, image 16) decreased from 10 mm down to 8 mm. There are no definite new liver metastases, however, there are couple of subtle tiny hypodensities in segment 6 right hepatic lobe (series 1, image 50) not definitely seen on the prior examination. Focal hepatic steatosis near the hepatic hilum. Cholecystectomy. No lymphadenopathy within the abdomen or pelvis. No suspicious peritoneal nodules. No ascites. Stable right renal cyst, kidneys otherwise negative. Stable mild benign- appearing nodularity left adrenal gland. Negative right adrenal gland. Negative pancreas and spleen. Small splenunculus. Unremarkable appearance of the uterus and adnexa. Normal caliber small bowel and colon. Moderate aortoiliac vascular calcifications. Diffuse hypertrophic skeletal degenerative changes. No suspicious osseous lesions. This examination was performed in conjunction with a CT of the chest, which will be reported separately. Procedure Note Cristian Marcos M.D. - 07/24/2023 EXAM: CT ABDOMEN PELVIS WITH IV CONTRAST COMPARISON: 04/26/2023 FINDINGS: No rectal mass appreciated. No suspicious mesorectal lymphnodes. The visualized small peripheral enhancing liver metastases show furtherdecrease in size since 04/26/2023. As examples, lesion in segment 6 righthepatic lobe (series 1, image 50) decreased from 9 mm down to 7 mm, lesionin segment 5 right hepatic lobe (series 1, image 53) measuring 5 mm, previously 7 mm, additional lesion insegment 5 (series 1, image 42) measuring 5 mm, previously 8 mm and, as afinal example, lesion in the hepatic dome (series 1, image 16) decreasedfrom 10 mm down to 8 mm. There are no definite new liver metastases, however, there are couple of subtletiny hypodensities in segment 6 right hepatic lobe (series 1, image 50)not definitely seen on the prior examination. Focal hepatic steatosis nearthe hepatic hilum. Cholecystectomy. No lymphadenopathy within the abdomen or pelvis. No suspicious peritonealnodules. No ascites. Stable right renal cyst, kidneys otherwise negative. Stable mildbenign-appearing nodularity left adrenal gland. Negative right adrenalgland. Negative pancreas and spleen. Small splenunculus. Unremarkableappearance of the uterus and adnexa. Normal caliber small bowel and colon. Moderate aortoiliac vascularcalcifications. Diffuse hypertrophic skeletal degenerative changes. Nosuspicious osseous lesions. This examination was performed in conjunction with a CT of the chest,which will be reported separately. IMPRESSION: 1. Previous liver metastases further slightly decreased in size since04/26/2023. Couple of subtle tiny hypodensities in segment 6 of the righthepatic lobe not definitely seen on the prior examination, new tinymetastases a possibility. Attention on follow-up. 2. Otherwise, no evidence for metastatic disease elsewhere in the abdomenor pelvis. Lew Barclay M.D., Ph.D. IMG CT PROCEDURES * CT Chest with IV Contrast (07/24/2023 4:17 PM CDT) Anatomical Region Laterality Modality Chest, Thoracic RST LOS, Tho racic ARZ LOS, Thoracic ARZ LOS, Thoracic FLA LOS N/A Computed Tomography, Compute d Tomography 07/24/2023 4:04 PM CDT Impressions 07/24/2023 4:27 PM CDT Stable exam. No evidence of metastatic disease in the chest. Narrative 07/24/2023 4:27 PM CDT EXAM: CT CHEST WITH IV CONTRAST COMPARISON: CT chests 04/26/2023 and 11/29/2022 FINDINGS: There are a few scattered tiny bilateral pulmonary nodules that are unchanged since 11/29/2022 including the nodule in the left upper lobe anterolaterally (series 3, image 93). Tiny calcified granulomas. No new nodules. Scattered mild scarring/linear atelectasis in the left midlung and in the bases. Scattered nodes in the chest are unchanged since 11/29/2022 without adenopathy including the slightly prominent right hilar node (image 282). Port-A-Cath with tip near the junction of the SVC and RA. Coronary artery calcification. Tiny esophageal hiatal hernia. Hypertrophic changes in the spine. This examination was performed in conjunction with a CT of the abdomen, which will be reported separately. 3D maximum intensity projection (MIP) images were created on a dependent workstation as ordered by the treating provider and reviewed by the radiologist to increase sensitivity for detection of pulmonary nodules. Procedure Note Nolan Montano M.D. - 07/24/2023 EXAM: CT CHEST WITH IV CONTRAST COMPARISON: CT chests 04/26/2023 and 11/29/2022 FINDINGS: There are a few scattered tiny bilateral pulmonary nodules thatare unchanged since 11/29/2022 including the nodule in the left upper lobeanterolaterally (series 3, image 93). Tiny calcified granulomas. No newnodules. Scattered mild scarring/linear atelectasis in the left midlung and in the bases. Scattered nodes in the chest are unchanged since 11/29/2022 withoutadenopathy including the slightly prominent right hilar node (image 282).Port-A-Cath with tip near the junction of the SVC and RA. Coronary arterycalcification. Tiny esophageal hiatal hernia. Hypertrophic changes in the spine. This examination was performed in conjunction with a CT of the abdomen,which will be reported separately. 3D maximum intensity projection (MIP) images were created on a dependentworkstation as ordered by the treating provider and reviewed by theradiologist to increase sensitivity for detection of pulmonary nodules. IMPRESSION: Stable exam. No evidence of metastatic disease in the chest. Lew Barclay M.D., Ph.D. IMG CT PROCEDURES * (ABNORMAL) CBC with Differential, Blood (07/24/2023 1:51 PM CDT) Hemoglobin 14.1 11.6 - 15.0 g/dL 07/24/2023 2:29 PM CDT DTL Hematocrit 42.2 35.5 - 44.9 % 07/24/2023 2:29 PM CDT DTL Erythrocytes 4.09 3.92 - 5.13 x10(12)/L 07/24/2023 2:29 PM CDT DTL MCV 103.2(H) 78.2 - 97.9 fL 07/24/2023 2:29 PM CDT DTL RBC Distrib Width 14.9 12.2 - 16.1 % 07/24/2023 2:29 PM CDT DTL Platelet Count 155(L) 157 - 371 x10(9)/L 07/24/2023 3:10 PM CDT DTL Leukocytes 6.1 3.4 - 9.6 x10(9)/L 07/24/2023 3:10 PM CDT DTL Neutrophils 2.39 1.56 - 6.45 x10(9)/L 07/24/2023 2:29 PM CDT DHPM Lymphocytes 2.16 0.95 - 3.07 x10(9)/L 07/24/2023 2:29 PM CDT DTL Monocytes 0.77 0.26 - 0.81 x10(9)/L 07/24/2023 2:29 PM CDT DTL Eosinophils 0.75(H) 0.03 - 0.48 x10(9)/L 07/24/2023 2:29 PM CDT DTL Basophils 0.06 0.01 - 0.08 x10(9)/L 07/24/2023 2:29 PM CDT DTL Blood (Blood, Venous) 07/24/2023 1:51 PM CDT 07/24/2023 2:18 PM CDT Lew Barclay M.D., Ph.D. LAB BLOOD ADD-ON [facility] [address] [place] [address], [facility] DTL [facility] [address] [place] [address] DHPM [facility] [address] [place] [address] * CEA (Carcinoembryonic Antigen) (07/24/2023 1:51 PM CDT) Carcinoembryonic Ag (CEA), S 2.7 ng/mL 07/24/2023 6:46 PM CDT [facility] Comment: ----REFERENCE VALUE---- <=3.0 (Non-smokers) Some smokers may have elevated CEA, usually <5.0. ----ADDITIONAL INFORMATION---- The testing method is an immunoenzymatic assay manufactured by [employer] and performed on the [employer] DxI 800. ? Values obtained with different assay methods or kits may be different and cannot be used interchangeably. ? Test results cannot be interpreted as absolute evidence for the presence or absence of malignant disease. Blood (Blood, Venous) 07/24/2023 1:51 PM CDT 07/24/2023 5:56 PM CDT Lew Barclay M.D., Ph.D. LAB BLOOD ADD-ON [facility] [address] [place] [address] [facility] [address] [place] [address] * (ABNORMAL) Comprehensive Metabolic Panel (07/24/2023 1:51 PM CDT) [facility] Potassium, S 4.3 3.6 - 5.2 mmol/L 07/24/2023 3:24 PM CDT DTL Sodium, S 137 135 - 145 mmol/L 07/24/2023 3:24 PM CDT DTL Chloride, S 102 98 - 107 mmol/L 07/24/2023 3:24 PM CDT DTL Bicarbonate, S 25 22 - 29 mmol/L 07/24/2023 3:24 PM CDT DTL Anion Gap 10 7 - 15 07/24/2023 3:24 PM CDT DTL BUN (Blood Urea Nitrogen), S 13 6 - 21 mg/dL 07/24/2023 3:24 PM CDT DTL Creatinine 0.88 0.59 - 1.04 mg/dL 07/24/2023 3:24 PM CDT DTL Estimated GFR (eGFR) 68 >=60 mL/min/BS A 07/24/2023 3:24 PM CDT DTL Comment: Estimated GFR calculated using the 2020 CKD_EPI creatinine equation. Calcium, Total, S 9.3 8.8 - 10.2 mg/dL 07/24/2023 3:24 PM CDT DTL Glucose, S 103 70 - 140 mg/dL 07/24/2023 3:24 PM CDT DTL Protein, Total, S 6.1(L) 6.3 - 7.9 g/dL 07/24/2023 3:24 PM CDT DTL Albumin, S 4.0 3.5 - 5.0 g/dL 07/24/2023 3:24 PM CDT DTL Aspartate Aminotransferase (AST), S 26 8 - 43 U/L 07/24/2023 3:24 PM CDT DTL Alkaline Phosphatase, S 82 35 - 104 U/L 07/24/2023 3:24 PM CDT DTL Alanine Aminotransferase (ALT), S 29 7 - 45 U/L 07/24/2023 3:24 PM CDT DTL Bilirubin, Total, S 0.4 0.0 - 1.2 mg/dL 07/24/2023 3:24 PM CDT DTL Blood (Blood, Venous) 07/24/2023 1:51 PM CDT 07/24/2023 2:35 PM CDT Lew Barclay M.D., Ph.D. LAB BLOOD ADD-ON [facility] [address] [place] [address], [facility] LaboratoriesUnited [facility] [address] [place] [address] from Last 3 Months Care Teams Pourer Buggy Ladle Relationship Specialty Start Date End Date Elsewhere, Pcp PCP - General Internal Medicine 09/26/21
--- OUTSIDE RECORDS SUMMARY | 2023-09-23 18:14 | XMS_ITS | Encounter Summary ---
Author Organization [facility] Address [address] [place] [phone] Care Team Providers Care Medical Management Specialist Name Role Phone Elsewhere, Pcp Primary Care Provider Unavailabl e Reason for Referral * MRI/CAT/PET Scan (Routine) - Closed Specialty Diagnoses / Procedures Referred By Tammy t Referred To Contact Radiology Diagnoses Malignant Neoplasm Of Rectum (HCC) Procedures MR Abdomen without and with IV Contrast Johnathan José M.D. [address] [place] [phone] [facility] Referral ID Status Reason Start Date Expiration Date Visits Re quested Visits Authorized [id number] Closed 07/31/2023 07/30/2024 1 1 Encounter Details Date Type Department Care Team (Late st Contact Info) Description 07/31/2023 Orders Only Department of Oncology in [place], [place] [address] [place] [phone] Dayan Garber R.N. [address] [place] [phone] Malignant Neoplasm Of Rectum (HCC) (Primary Dx) 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 Tobacco Use Types Packs/Day Years [...] week 09/22/2021 How often do you attend [facility] or anabaptist services? Never 09/22/2021 Do you belong to any clubs o r organizations such as holiness groups, unions, fraternal or athletic groups, or [...] and heating? Not hard at all 11/22/2022 [facility] of Occupat ional Health - Occupational Stress [...] your living situation today? I have a [facility] place to live 11/22/2022 Education Answer Date Recorded What is the highest level of school you have completed or the highest degree you have received? Some college, no degree 09/22/2021 Sex and Gender Information Value Date Recorded Sex Assigned at Female 09/22/2021 7:06 AM CDT Gender Identity Female 09/22/2021 7:06 AM CDT Sexual Orientation Straight 12/25/2021 10 :27 AM CDT documented as of this encounter Plan of Treatment Upcoming Encounters Date Type Department Care Team (Latest Contact Info) Description 10/09/2023 2:30 PM CDT Clinical Communication Virtual Review in [place], [place] [address] [place] [phone] 10/14/2023 1:30 PM CDT Telemedicine Division of Colon and Rectal Surgery in [place], [place] [address] [place] [address] Mendy Quintanilla M.D. [address] [place] [phone] 11/04/2023 10:30 AM CDT Comprehensive Visit Division of Hepatobiliary and Pancreas Surgery in [place], [place] [address] [place] [address] Karlene Noble M.D. [address] [place] [phone] documented as of this encounter Results * MR Abdomen without and with [...] 1.4 cm. These now measure 0.9 cm (17/, 97). Lesions show persistent rim enhancement. No [...] 1.4 cm. These now measure 0.9 cm (17/, 97). Lesions show persistent rim enhancement.No new [...] disease identified.Hepatic steatosis. Johnathan SAM MRI PROCEDURES documented in this encounter Visit Diagnoses Diagnosis Malignant Neoplasm Of Rectum (HCC)- Primary Malignant Neoplasm Of Rectum (HCC) documented in this encounter Care Teams Medical Management Specialist Relationship Specialty Start Date End Date Elsewhere, Pcp PCP - General Internal Medicine 09/26/21 documented as of this encounter
--- OUTSIDE RECORDS SUMMARY | 2023-09-23 18:14 | XMS_ITS | Encounter Summary ---
Author Organization [facility] Address [address] [place] [address] Care Team Providers Care Corporate Development Manager Name Role Phone Elsewhere, Pcp Primary Care Provider Unavailabl e Reason for Referral * Outpatient (Routine) - Authorized Specialty Diagnoses / Procedures Referred By Contac t Referred To Contact Colon and Rectal Surgery Diagnoses Malignant Neoplasm Of Rectum (HCC) Secondary Malignant Neoplasm Liver (HCC) Johnathan José M.D. [address] [place] [address] [facility] Referral ID Status Reason Start Date Expiration Date V isits Requested Visits Authorized [id number] Authorized 09/18/2023 03/19/2025 [address] Quintanilla. Thanks! * Outpatient (Routine) - Authorized Specialty Diagnoses / Procedures Referred By Contbj t Referred To Contact General Surgery Diagnoses Malignant Neoplasm Of Rectum (HCC) Secondary Malignant Neoplasm Liver (HCC) Johnathan José M.D. [address] [place] [address] [facility] Referral ID Status Reason Start Date Expiration Date V isits Requested Visits Authorized [id number] Authorized 09/18/2023 03/19/2025 [address] Noble can see her this , please work with her team. Thanks! * Outpatient (Routine) - Authorized Specialty Diagnoses / Procedures Referred By Contbj t Referred To Contact Oncology Johnathan José M.D. [address] [place] [phone] [facility] Referral ID Status Reason Start Date Expiration Date V isits Requested Visits Authorized [id number] Authorized 09/18/2023 03/19/2025 1 1 Encounter Details Date Type Department Care Team (Late st Contact Info) Description 09/18/2023 Orders Only Department of Oncology in [place], [place] [address] [place] [phone] Johnathan José M.D. [address] [place] [phone] Malignant Neoplasm Of Rectum (HCC) (Primary Dx); Secondary Malignant Neoplasm Liver (HCC) 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 Tobacco Use Types Packs/Day Years [...] often do you attend chur ch or faith services? Never 09/22/2021 Do you belong to any clubs o r organizations such as orthodox groups, unions, fraternal or athletic groups, or [...] and heating? Not hard at all 11/22/2022 [facility] of Occupat ional Health - [...] money to buy more. Never true 11/23/19 23 Within the past 12 months, t he [...] your living situation today? I have a [facility] place to live 11/22/2022 Education Answer [...] PM CDT Clinical Communication Virtual Review in [place], [place] 200 [place] [phone] 10/14/2023 1:30 PM CDT Telemedicine Division of Colon and Rectal Surgery in [place], [place] [address] [place] [phone] Mendy Quintanilla M.D. [address] [place] [phone] 11/04/2023 10:30 AM CDT Comprehensive Visit Division of Hepatobiliary and Pancreas Surgery in [place], [place] [address] [place] [phone] Karlene Noble M.D. [address] [place] [phone] Scheduled Orders Name Type Priority Associated Diagnoses Orde r Schedule Comprehensive Metabolic Panel Lab Routine Malignant Neoplasm Of Rectum (HCC) Secondary Malignant Neoplasm Liver (HCC) Expected: 11/20/2023 (Approximate), Expires: 12/18/2024 CEA (Carcinoembryonic Antigen) Lab Routine Malignant Neoplasm Of Rectum (HCC) Secondary Malignant Neoplasm Liver (HCC) Expected: 11/20/2023 (Approximate), Expires: 12/18/2024 CBC with Differential, Blood Lab Routine Malignant Neoplasm Of Rectum (HCC) Secondary Malignant Neoplasm Liver (HCC) Expected: 11/20/2023 (Approximate), Expires: 09/17/2024 Scheduled Referrals Name Type Priority Associated Diagnoses Order Schedule Oncology office visit (clinic) Outpatient Referral Routine Expected: 09/18/2023 (Approximate), Expires: 12/18/2024 General Surgery - Biliary / liver consult (clinic) Outpatient Referral Routine Malignant Neoplasm Of Rectum (HCC) Secondary Malignant Neoplasm Liver (HCC) Expected: 09/18/2023, Expires: 12/18/2024 Colon and Rectal Surgery - Colorectal cancer consult (clinic) Outpatient Referral Routine Malignant Neoplasm Of Rectum (HCC) Secondary Malignant Neoplasm Liver (HCC) Expected: 09/18/2023, Expires: 12/18/2024 documented as of this encounter Visit Diagnoses Diagnosis Malignant Neoplasm Of Rectum (HCC)- Primary Secondary Malignant Neoplasm Liver (HCC) documented in this encounter Care Teams Corporate Development Manager Relationship Specialty Start Date End Date Elsewhere, Pcp PCP - General Internal Medicine 09/26/21 documented as of this encounter
--- OUTSIDE RECORDS SUMMARY | 2023-09-23 18:14 | XMS_ITS | Encounter Summary ---
Author Organization [facility] Address [address] [place] [phone] Care Team Providers Care Material Worker Name Role Phone Elsewhere, Pcp Primary Care Provider Unavailabl e Reason for Visit * Outpatient (Routine) - Closed Specialty Diagnoses / Procedures Referred By Tammy stone Referred To Contact General Surgery Diagnoses Malignant Neoplasm Of Rectum (HCC) Secondary Malignant Neoplasm Liver (HCC) Johnathan José M.D. [address] [place] [phone] [facility] Referral ID Status Reason Start Date Expiration Date Visits Re quested Visits Authorized [id number] Closed 07/25/2023 01/23/2025 1 1 Encounter Details Date Type Department Care Team (Latest Contact Info) Description 09/17/2023 10:30 AM CDT Comprehensive Visit Division of Hepatobiliary and Pancreas Surgery in [place], [place] [address] [place] [phone] Mahad Harrell M.D., Ph.D. [address] [place] [phone] Malignant Neoplasm Of Rectum (HCC); Secondary Malignant Neoplasm Liver (HCC) 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 [...] week 09/22/2021 How often do you attend [facility] or yarsani services? Never 09/22/2021 Do you belong to any clubs o r organizations such as zoroastrianism groups, unions, fraternal or athletic groups, or [...] and heating? Not hard at all 11/22/2022 [facility] [place] of Occupat ional Health - Occupational Stress [...] your living situation today? I have a [facility] place to live 11/22/2022 Education Answer Date [...] AM CDT documented as of this encounter Consult Notes * Mahad Harrell M.D., Ph.D. - 09/17/2023 10:30 AM CDT Images from the original note were not included. SUBJECTIVE Expand All Collapse All SUBJECTIVE[]Expand by Default REASON FOR CONSULT Apolonia William is a 77 y.o. female who presents for evaluation of metastatic colorectal cancer. She was referred by Johnathan José M.D. HISTORY OF PRESENT ILLNESS Ms. William was referred for evaluation of a liver mass. This was detected by MRI which was done as part of an evaluation for no problems. She has no history of chronic liver disease without cirrhosis. The patient otherwise reports a history of colorectal cancer. The ECOG performance status is 0 - asymptomatic. The patient's weight has been stable. The following portions of the patient's history were reviewed and updated as appropriate: allergies, current medications, family history, medical history, social history, surgical history, and problem list. REVIEW OF SYSTEMS Pertinent items are noted in HPI; all other review of systems was negative. OBJECTIVE PHYSICAL EXAM General appearance: alert, oriented, and no acute distress. Diagnostics Lab Results Component Value Date HGB 14.1 07/24/2023 HCT 42.2 07/24/2023 RBC 4.09 07/24/2023 MCV 103.2 (H) 07/24/2023 RDW 14.9 07/24/2023 WBC 6.1 07/24/2023 PLT 155 (L) 07/24/2023 INR 1.1 12/06/2022 BILITOT 0.4 07/24/2023 AST 26 07/24/2023 ALKPHOS 82 07/24/2023 CEA 2.7 07/24/2023 ALBUMIN 4.0 07/24/2023 Imaging: IMPRESSION: Several of the metastatic liver lesions seen at initial pretreatment MRI are no longer visible. Others have decreased in size. No new or enlarging liver lesion. No extrahepatic abdominal metastatic disease identified. Hepatic steatosis. ASSESSMENT / PLAN The patient has now continued to response very well to systemic treatment. Today we discussed againin more detail about surgical options. Today we also included discussions about hepatic arterial infusion pump for adjuvant treatment. While I initially thought that this patient would require a two-stage hepatectomy I do think with agreat response we might be able to perform a 1 stage procedure together with colorectal with multiple wedges and ablations. At this point in time the patient wants to discuss further with colorectal surgery as well as should discuss with our hepatic arterial infusion pump surgeons. This will allow her to get a deeper understanding of the consequences of a procedure like this. She will subsequently reach out to us for planning the surgical procedure if she feels like she wants to move forward with this. Today, I personally spent 30 minutes, of which greater than 50% of the time was spent in patient education, counseling, and coordination of care as described above. documented in this encounter Plan of Treatment Upcoming Encounters Date Type Department Care Team (Latest Contact Info) Description 10/09/2023 2:30 PM CDT Clinical Communication Virtual Review in [address] [phone] 10/14/2023 1:30 PM CDT Telemedicine Division of Colon and Rectal Surgery in [address] [phone] Mendy Quintanilla M.D. [address] [place] [phone] 11/04/2023 10:30 AM CDT Comprehensive Visit Division of Hepatobiliary and Pancreas Surgery in [address] [phone] Karlene Noble M.D. [address] [place] [phone] documented as of this encounter Visit Diagnoses Diagnosis Malignant Neoplasm Of Rectum (HCC) Secondary Malignant Neoplasm Liver (HCC) documented in this encounter Care Teams Material Worker Relationship Specialty Start Date End Date Elsewhere, Pcp PCP - General Internal Medicine 09/26/21 documented as of this encounter
--- OUTSIDE RECORDS SUMMARY | 2023-09-23 18:14 | XMS_ITS | Encounter Summary ---
Author Organization [facility] Address [address] [place] [address] Care Team Providers Care Rn Clinical Quality Name Role Phone Elsewhere, Pcp Primary Care Provider Unavailabl e Encounter Details Date Type Department Care Team (Late st Contact Info) Description 09/18/2023 Clinical Communication Department of Oncology in [place], [place] [address] [place] [address] Johnathan José M.D. [address] [place] [phone] 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 Tobacco Use Types Packs/Day Years [...] often do you attend chur ch or sikhism services? Never 09/22/2021 Do you belong to any clubs o r organizations such as pentecostalism groups, unions, fraternal or athletic groups, or [...] and heating? Not hard at all 11/22/2022 [facility] - [facility]ational Stress Questionnaire Answer [...] your living situation today? I have a [facility] place to live 11/22/2022 Education Answer Date [...] PM CDT Clinical Communication Virtual Review in [place], [place] [address] [place] [phone] 10/14/2023 1:30 PM CDT Telemedicine Division of Colon and Rectal Surgery in [place], [place] [address] [place] [phone] Mendy Quintanilla M.D. [address] [place] [phone] 11/04/2023 10:30 AM CDT Comprehensive Visit Division of Hepatobiliary and Pancreas Surgery in [place], [place] [address] [place] [phone] Karlene Noble M.D. [address] [place] [phone] documented as of this encounter Visit Diagnoses Not on filedocumented in this encounter Care Teams Rn Clinical Quality Relationship Specialty Start Date End Date Elsewhere, Pcp PCP - General Internal Medicine 09/26/21 documented as of this encounter
--- OUTSIDE RECORDS SUMMARY | 2023-09-23 18:14 | XMS_ITS | Encounter Summary ---
Author Organization [facility] Address [address] [place] [address] Care Team Providers Care Pipe Insulator Helper Name Role Phone Elsewhere, Pcp Primary Care Provider Unavailabl e Reason for Visit * MRI/CAT/PET Scan (Routine) - Closed Specialty Diagnoses / Procedures Referred By Tammy t Referred To Contact Radiology Diagnoses Malignant Neoplasm Of Rectum (HCC) Procedures MR Pelvis Rectal CA Staging without IV Contrast MR Pelvis Rectal CA Staging without and with IV Contrast Johnathan José M.D. [address] [place] [address] [facility] Referral ID Status Reason Start Date Expiration Date Visits Re quested Visits Authorized [id number] Closed 07/31/2023 07/30/2024 1 1 Encounter Details Date Type Department Care Team (Latest Contact Info) Description 09/06/2023 7:14 AM CDT - 09/06/2023 11:59 PM CDT Hospital Encounter Department of Radiology, [facility] in [place], [place] [address] [place] [address] Johnathan José M.D. [address] [place] [phone] Malignant Neoplasm Of Rectum (HCC) Discharge Disposition: Home or Self Care 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 Tobacco Use Types Packs/Day Years [...] 09/22/2021 How often do you attend chur or buddhist services? Never 09/22/2021 Do you belong to [...] and heating? Not hard at all 11/22/2022 [facility] Occupat [facility] - Occupational Stress [...] your living situation today? 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 chlorthalidone (HYGROTON) 25 mg tablet Take 12.5 mg by mouth daily. cholecalciferol (VITAMIN D3) 10 mcg (400 Unit) tablet VITAMIN D3 10 MCG (400 UNIT) TABS 01/01/2022 cyanocobalamin (VITAMIN B12) 1,000 mcg tablet Take 1 tablet by mouth daily. 07/10/2017 dexAMETHasone (DECADRON) 4 mg tabletIndications:Mal ignant Neoplasm Of Rectum (HCC),Secondary Malignant Neoplasm Liver (HCC) Take 2 tablets (8 mg total) by mouth daily. Take daily for 3 days, starting the day after chemotherapy ends of each cycle. 6 tablet 3 12/24/2022 diphenhydrAMINE-aceta minophen (TYLENOL PM) 25-500 mg per tablet Take 0.5 tablets by mouth at bedtime as needed for sleep. hydroCHLOROthiazide (HYDRODIURIL) 12.5 mg tablet Take 12.5 mg by mouth every morning. 10/06/2022 loperamide (IMODIUM A-D) 2 mg capsule See Admin Instructions. See attached for detailed directions. 02/04/2023 metoprolol tartrate (LOPRESSOR) 50 mg tablet Take 1 tablet by mouth 2 (two) times a day. 07/10/2017 multivitamin tablet Take 1 tablet by mouth daily. 07/10/2017 omeprazole (PriLOSEC) [address] capsule Take 1 capsule by mouth daily. 02/09/2020 ondansetron (ZOFRAN) 8 mg tabletIndications:Mal ignant Neoplasm Of Rectum (HCC),Secondary Malignant Neoplasm Liver (HCC) Take 1 tablet (8 mg total) by mouth every 8 (eight) hours as needed for nausea or vomiting (unrelieved by prochlorperazine). 30 tablet 3 12/24/2022 12/24/2023 polyethylene glycol (MIRALAX) 17 gram powder packet Take 17 g by mouth once. ONCE WEEKLY potassium chloride (K-TAB) 20 mEq CR tablet Take 2 tablets by mouth daily. 2 tablets on Saturday, Saturday, & Saturday. 3 tablets on Saturday, Saturday, Saturday, & . 01/23/2023 prochlorperazine (COMPAZINE) 10 mg tabletIndications:Mal ignant Neoplasm Of Rectum (HCC),Secondary Malignant Neoplasm Liver (HCC) Take 1 tablet (10 mg total) by mouth every 6 (six) hours as needed for nausea or vomiting. 30 tablet 3 12/24/2022 12/24/2023 sertraline (ZOLOFT) 50 mg tablet Take 50 mg by mouth daily. 09/02/2023 simvastatin (ZOCOR) 20 mg tablet Take 1 tablet by mouth daily. 07/10/2017 documented as of this encounter Nursing Notes * Ari Escobedo M.S.N., R.N. - 09/06/2023 8:45 AM CDT Radiology Minimal Sedation Screening (Ativan) Does the patient have a responsible adult accompanying them? Yes - record name and phone number of accompanying adult Ankur William Is the patient oxygen dependant? No - continue. Is patient scheduled for an MR proctogram or neuro functional MR? No - continue. Does patient have a hx of narrow angle glaucoma? No - continue. Does patient have an allergy to lorazepam or other benzodiazepines? No - continue. Has the patient taken any other benzodiazepines, antidepressants, or sedating medications today? No- continue. Is the patient scheduled for a MR guided breast biopsy, or do they have any other appointments today that may require attention to detail or informed consent? No - continue. Is the patient 18 and older: Yes - follow Radiant medication guidelines to titrate sedation as appropriate. * Ari Escobedo M.S.N., R.N. - 09/06/2023 8:45 AM CDT Glucagon Administration Screening: Does patient have an allergy to glucagon or lactose (e.g. hives, difficulty breathing, anaphylaxis,necrolytic migratory erythema)? Note: nausea vomiting, bloating, and diarrhea are common and expected adverse effects of glucagon and/or lactose intolerance. NO If no, continue. Does patient have a history of insulinoma or pheochromocytoma? NO If no, continue. If yes, discuss with Radiologist. Does patient have diabetes? NO If no, continue. If yes, initiate nurse initiated protocol to order POC blood glucose . If yes and insulin dependent, provide patient with Glucagon Injections if you Have Diabetes card. What is patient's glucose? Not diabetic - less than 70 treat f using Hypoglycemia Nurse Initiated Protocol - between 70 and 300 administer medication as ordered. - greater than 300 notify radiologist and do not administer medication. Is patient safe to receive Glucagon YES If yes, administer Glucagon as outlined in order. Does the patient need to remain NPO following scan for additional appointments today? NO * Ari Escobedo M.S.N., R.N. - 09/06/2023 8:45 AM CDT Inclusion Criteria 1. Does patient have MRI exam with Microenema scheduled? Yes (CONTINUE) Exclusion Criteria: Does patient have a history of the following? None The patient does not have history of exclusion criteria per Radiant Medication Guideline. Note: Patients with history of hemorrhoids and anal fissures may receive Microenema If patient has any exclusion criteria above, the patient will not receive Microenema. Technologist will notify radiologist and enter study note stating patient met Microenema exclusion criteria and enema not administered. Proceed with exam. If patient meets inclusion criteria and does not have any exclusion criteria, proceed with assessment of ability to self-administer below: Does the patient demonstrate knowledge of the current medication regimen, includin. The medication name, dosage form, and reason for use 2. How to administer medication (process, time, frequency, route, & dose of medication) 3. Anticipated actions and potential side effects of the medication 4. Monitoring of the effects of the medication Yes to all above. Patient meeds self-administration criteria. Escort to restroom and provide with medication as ordered. 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 Reminder: If ordered with rectal gel and glucagon, please add those screenings to this nursing note. * Papito Bear R.N. - 09/06/2023 8:45 AM CDT Patient tolerated MRI with minimal sedation and was dismissed in a wheelchair into the care of her , Ankur, in the lobby. documented in this encounter Plan of Treatment Upcoming Encounters Date Type Department Care Team (Latest Contact Info) Description 10/09/2023 2:30 PM CDT Clinical Communication Virtual Review in [address] [phone] 10/14/2023 1:30 PM CDT Telemedicine Division of Colon and Rectal Surgery in [address] [phone] Mendy Quintanilla M.D. [address] [place] [phone] 11/04/2023 10:30 AM CDT Comprehensive Visit Division of Hepatobiliary and Pancreas Surgery in [address] [phone] Karlene Noble M.D. [address] [place] [phone] documented as of this encounter Procedures Procedure Name Priority Date/Time Associated Diagnosis Comments MR PELVIS RECTAL CA STAGING WITHOUT IV CONTRAST RAD - Routine (most inpatients and all outpatients) 09/06/2023 9:11 AM CDT Malignant Neoplasm Of Rectum (HCC) documented in this encounter Results * MR Pelvis Rectal CA Staging without [...] Suspicious extra mesorectal lymph nodes: Absent Johnathan SAM MRI PROCEDURES documented in this encounter Visit Diagnoses Diagnosis Malignant Neoplasm Of Rectum (HCC) documented in this encounter Administered Medications Inactive Administered Medications - up to 3 most recent administrations Medication Order MAR Action Action Date Dose Rate Site docusate sodium 283 mg/5 mL enema 1 enema (ENEMEEZ) 1 enema, rectal, Once, On Sat09/06/23 at 0815, For 1 dose, Imaging Protocol Orders Given 09/06/2023 8:03 AM CDT 1 enema glucagon injection 0.5-1 mg (GlucaGen) 0.5-1 mg, subcutaneous, Once, On Sat09/06/23 at 0815, For 1 dose, Imaging Protocol Orders, Dose per Radiant Medication Guidelines Given 09/06/2023 9:09 AM CDT 1 mg Left Upper Arm (Back) LORazepam tablet 0.5 mg (ATIVAN) 0.5 mg, sublingual, As needed, anxiety, Starting on Sat09/06/23 at 0751, For 4 doses, Imaging Protocol Orders, 1 mg by mouth once as needed for anxiety related to radiology study. May administer 0.5 mg dose if patient prefers. May repeat every 15 minutes if anxiety persists (2 mg maximum dose). Given 09/06/2023 8:10 AM CDT 1 mg documented in this encounter Care Teams Pipe Insulator Helper Relationship Specialty Start Date End Date Elsewhere, Pcp PCP - General Internal Medicine 09/26/21 documented as of this encounter
--- OUTSIDE RECORDS SUMMARY | 2023-09-23 18:14 | XMS_ITS ---
Author Organization [facility] Address [address] [place] [id number] Care Team Providers Care Physical Therapist Clinic Director Name Role Phone Unavailable Unavailable Unavailable Surgery Details Not on file Complications Check Surgery Details section. Procedure Estimated Blood Loss Check Surgery Details section. Procedure Findings Check Surgery Details section. Procedure Specimens Taken Check Surgery Details section.
--- OUTSIDE RECORDS SUMMARY | 2023-09-23 18:14 | XMS_ITS | Encounter Summary ---
Author Organization [facility] Address [address] [place] [address] Care Team Providers Care Director Medical Name Role Phone Elsewhere, Pcp Primary Care Provider Unavailabl e Reason for Referral * MRI/CAT/PET Scan (Routine) - Closed Specialty Diagnoses / Procedures Referred By Tammy t Referred To Contact Radiology Diagnoses Malignant Neoplasm Of Rectum (HCC) Procedures MR Abdomen without and with IV Contrast Johnathan José M.D. [address] [place] [address] [facility] Referral ID Status Reason Start Date Expiration Date Visits Re quested Visits Authorized [id number] Closed 07/31/2023 07/30/2024 1 1 Reason for Visit * MRI/CAT/PET Scan (Routine) - Closed Specialty Diagnoses / Procedures Referred By Tammy stone Referred To Contact Radiology Diagnoses Malignant Neoplasm Of Rectum (HCC) Procedures MR Abdomen without and with IV Contrast Johnathan José M.D. [address] [place] [address] [facility] Referral ID Status Reason Start Date Expiration Date Visits Re quested Visits Authorized [id number] Closed 07/31/2023 07/30/2024 1 1 Encounter Details Date Type Department Care Team (Latest Contact Info) Description 09/12/2023 6:22 AM CDT - 09/12/2023 11:59 PM CDT Hospital Encounter Department of Radiology, [facility], in [place], [place] [address] [place] [address] Johnathan José M.D. [address] [place] [address] Malignant Neoplasm Of Rectum (HCC) Discharge Disposition: [...] often do you attend chur ch or jain services? Never 09/22/2021 Do you belong to any clubs o r organizations such as moravian groups, unions, fraternal or athletic groups, or [...] and heating? Not hard at all 11/22/2022 [facility]at ional [facility] - Occupational Stress Questionnaire Answer Date Recorded [...] your living situation today? I have a [facility] place to live 11/22/2022 Education Answer Date [...] Taken Comments Blood Pressure - - Pulse 65 09/12/2023 8:09 AM CDT Temperature - - Respiratory Rate 15 09/12/2023 8:09 AM CDT Oxygen Saturation 96% 09/12/2023 8:09 AM CDT Inhaled Oxygen Concentration - - Weight - - Height - - Body Mass Index - - documented in this encounter Medications at Time [...] as of this encounter Nursing Notes * Beto Hinds R.N. - 09/12/2023 6:45 AM CDT Eovist administration screening: Has radiologist issued an order for Gadoxetrate Disodium (Eovist)? YES If yes???continue Was eGFR Point of care for MRI scan Protocol reviewed by RN? YES If yes???continue Is patient jaundiced? NO If no???.continue. If yes, notify Radiologists prior to preceeding. Does patient have a total bilirubin documented in the past 30 days in the electronic medical record? NO If yes???continue to next question. If no, continue to administration of medication. If yes???(or if patient does not have a bilirubin documented) administer medications as ordered andoutlined in medication reference document. * Beto Hinds R.N. - 09/12/2023 6:45 AM CDT Radiology Minimal Sedation Screening (Ativan) Does the patient have a responsible adult accompanying them? Yes - record name and phone number of accompanying adult ankur on file Is the patient oxygen dependant? No - continue. Is patient scheduled for an MR proctogram or neuro functional MR? No - continue. Does patient have a hx of narrow angle glaucoma? No - continue. Does patient have an allergy to lorazepam or other benzodiazepines? No - continue. Has the patient taken any other benzodiazepines or sedating medications today? No - continue. Is the patient scheduled for a MR guided breast biopsy, or do they have any other appointments today that may require attention to detail or informed consent? No - continue. Is the patient 18 and older: Yes - follow Radiant medication guidelines to titrate sedation as appropriate. * Ari Arrieta R.N. - 09/12/2023 6:45 AM CDT Patient alert and oriented and steady on her feet. She will be dismissed to her , who is in the room with her. RN sees no further need to monitor patient at this time. Vital signs documented in Epic. documented in this encounter Plan of Treatment Upcoming Encounters Date Type Department Care Team (Latest Contact Info) Description 10/09/2023 2:30 PM CDT Clinical Communication Virtual Review in [place], [place] [address] [place] [address] 10/14/2023 1:30 PM CDT Telemedicine Division of Colon and Rectal Surgery in [address] [phone] Mendy Quintanilla M.D. [address] [place] [phone] 11/04/2023 10:30 AM CDT Comprehensive Visit Division of Hepatobiliary and Pancreas Surgery in [place], [place] [address] [place] [address] Karlene Noble M.D. [address] [place] [address] documented as of this encounter Procedures Procedure Name Priority Date/Time Associated Diagnosis Comments MR ABDOMEN WITHOUT AND WITH IV CONTRAST RAD - Routine (most inpatients and all outpatients) 09/12/2023 7:59 AM CDT Malignant Neoplasm Of Rectum (HCC) documented in this encounter Results * MR Abdomen without [...] 1.4 cm. These now measure 0.9 cm (17, 97). Lesions show persistent rim enhancement. No [...] MAR Action Action Date Dose Rate Site gadoxetate injection 0.1-20 mL (EOVIST) 0.1-20 mL, intravenous, Once in imaging, contrast, Starting on Sat09/12/23 at 0630, For 1 dose, Imaging Protocol Orders, Dose per Radiant Medication Guidelines Given 09/12/2023 7:46 AM CDT 10 mL heparin flush 500-1,000 Units 500-1,000 Units, intra-catheter, During hospitalization, line care, Prior to discharge, Starting on Fanny 09/12/23 at 0645, For 1 dose, Implanted Vascular Access Device (IVAD) Venous Non-Valved: flush 5 mL (500 units) per port/lumen following saline flush prior to discharge. Given 09/12/2023 8:02 AM CDT 500 Units LORazepam tablet 0.5 mg (ATIVAN) 0.5 mg, sublingual, As needed, anxiety, Starting on Fanny 09/12/23 at 0630, For 4 doses, Imaging Protocol Orders, 1 mg by mouth once as needed for anxiety related to radiology study. May administer 0.5 mg dose if patient prefers. May repeat every 15 minutes if anxiety persists (2 mg maximum dose). Given 09/12/2023 6:50 AM CDT 1 mg sodium chloride (PF) 0.9 % injection 1-100 mL 1-100 mL, intravenous, Once, On Fanny 09/12/23 at 0700, For 1 dose, Imaging Protocol Orders, Dose per Radiant Medication Guidelines Given 09/12/2023 7:47 AM CDT 30 mL sodium chloride 0.9 % injection 10-20 mL 10-20 mL, intravenous, As needed, line care, Implanted Vascular Access Device (IVAD) Venous Non-Valved, Starting on Fanny 09/12/23 at 0645, Prior to and following infusion and between multiple consecutive infusions, flush 10 mL to each port/lumen. Given 09/12/2023 8:02 AM CDT 10 mL documented in this encounter Care Teams Director Medical Relationship Specialty Start Date End Date Elsewhere, Pcp PCP - General Internal Medicine 09/26/21 documented as of this encounter
--- OUTSIDE RECORDS SUMMARY | 2023-09-23 18:14 | XMS_ITS | Encounter Summary ---
Author Organization [facility] Address [address] [place] [address] Care Team Providers Care Marketing Campaign Analyst Name Role Phone Elsewhere, Pcp Primary Care Provider Unavailabl e Reason for Referral * MRI/CAT/PET Scan (Routine) - Closed Specialty Diagnoses / Procedures Referred By Contac t Referred To Contact Radiology Diagnoses Malignant Neoplasm Of Rectum (HCC) Secondary Malignant Neoplasm Liver (HCC) Procedures CT Chest with IV Contrast Lew Barclay M.D., Ph.D. [address] [place] [phone] [facility] Referral ID Status Reason Start Date Expiration Date Visits Re quested Visits Authorized [id number] Closed 04/26/2023 04/25/2024 1 1 * MRI/CAT/PET Scan (Routine) - Closed Specialty Diagnoses / Procedures Referred By Contac t Referred To Contact Radiology Diagnoses Malignant Neoplasm Of Rectum (HCC) Secondary Malignant Neoplasm Liver (HCC) Procedures CT Abdomen Pelvis with IV Contrast Lew Barclay M.D., Ph.D. [address] [place] [phone] [facility] Referral ID Status Reason Start Date Expiration Date Visits Re quested Visits Authorized [id number] Closed 04/26/2023 04/25/2024 1 1 Reason for Visit * MRI/CAT/PET Scan (Routine) - Closed Specialty Diagnoses / Procedures Referred By Tammy stone Referred To Contact Radiology Diagnoses Malignant Neoplasm Of Rectum (HCC) Secondary Malignant Neoplasm Liver (HCC) Procedures CT Chest with IV Contrast Lew Barclay M.D., Ph.D. [address] [place] [address] [facility] Referral ID Status Reason Start Date Expiration Date Visits Re quested Visits Authorized [id number] Closed 04/26/2023 04/25/2024 1 1 Encounter Details Date Type Department Care Team (Latest Contact Info) Description 07/24/2023 3:06 PM CDT - 07/24/2023 11:59 PM CDT Hospital Encounter Department of Radiology, [facility], in [place], [place] [address] [place] [address] Lew Barclay M.D., Ph.D. [address] [place] [address] Malignant Neoplasm Of Rectum (HCC); Secondary Malignant [...] often do you attend chur ch or yarsani services? Never 09/22/2021 Do you belong to any clubs o r organizations such as gnosticist groups, unions, fraternal or athletic groups, or [...] and heating? Not hard at all 11/22/2022 [facility] of Occupat ional Health - Occupational Stress [...] your living situation today? 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 30 tablet 3 12/24/2022 12/24/2023 simvastatin (ZOCOR) 20 mg tablet Take 1 tablet by mouth daily. 07/10/2017 documented as of this encounter Plan of Treatment Upcoming Encounters Date Type Department Care Team (Latest Contact Info) Description 10/09/2023 2:30 PM CDT Clinical Communication Virtual Review in [address] [phone] 10/14/2023 1:30 PM CDT Telemedicine Division of Colon and Rectal Surgery in [place], [place] [address] [place] [address] Mendy Quintanilla M.D. [address] [place] [phone] 11/04/2023 10:30 AM CDT Comprehensive Visit Division of Hepatobiliary and Pancreas Surgery in [place], [place] [address] [place] [address] Karlene Noble M.D. [address] [place] [phone] documented as of this encounter Procedures Procedure Name Priority Date/Time Associated Diagnosis Comments CT ABDOMEN PELVIS WITH IV CONTRAST RAD - Routine (most inpatients and all outpatients) 07/24/2023 4:17 PM CDT Malignant Neoplasm Of Rectum (HCC) Secondary Malignant Neoplasm Liver (HCC) CT CHEST WITH IV CONTRAST RAD - Routine (most inpatients and all outpatients) 07/24/2023 4:17 PM CDT Malignant Neoplasm Of Rectum (HCC) Secondary Malignant Neoplasm Liver (HCC) documented in this encounter Results * CT Chest with IV Contrast (07/24/2023 [...] M.D., Ph.D. IMG CT PROCEDURES * CT Abdomen Pelvis with IV [...] the abdomenor pelvis. Lew Barclay M.D., Ph.D. G CT PROCEDURES documented in this encounter Visit Diagnoses Diagnosis Malignant Neoplasm Of Rectum (HCC) Secondary Malignant Neoplasm Liver (HCC) documented in this encounter Administered Medications Inactive Administered Medications - up to 3 most recent administrations Medication Order MAR Action Action Date Dose Rate Site heparin flush 500-1,000 Units 500-1,000 Units, intra-catheter, As needed, line care, Prior to discharge, Starting on Sat07/24/23 at 1532, For 1 dose, Implanted Vascular Access Device (IVAD) Venous Non-Valved: flush 5 mL (500 units) per port/lumen following saline flush prior to discharge. Given 07/24/2023 4:06 PM CDT 500 Units iohexoL 300 mg iodine/mL solution 1-200 mL (OMNIPAQUE) 1-200 mL, intravenous, Once in imaging, contrast, Starting on Sat07/24/23 at 1530, For 1 dose, Imaging Protocol Orders, Dose per Radiant Medication Guidelines Given 07/24/2023 3:54 PM CDT 140 mL sodium chloride (PF) 0.9 % injection 1-100 mL 1-100 mL, intravenous, Once, On Sat07/24/23 at 1600, For 1 dose, Imaging Protocol Orders, Dose per Radiant Medication Guidelines Given 07/24/2023 3:54 PM CDT 50 mL sodium chloride 0.9 % injection 10-20 mL 10-20 mL, intravenous, As needed, line care, Implanted Vascular Access Device (IVAD) Venous Non-Valved, Starting on Sat07/24/23 at 1532, Prior to and following infusion and between multiple consecutive infusions, flush 10 mL to each port/lumen. Given 07/24/2023 3:38 PM CDT 10 mL Port sodium chloride 0.9 % injection 10-20 mL 10-20 mL, intravenous, As needed, line care, Prior to discharge, Starting on Sat07/24/23 at 1532, For 1 dose, Implanted Vascular Access Device (IVAD) Venous Non-Valved: Flush 10 mL per port/lumen followed by heparin flush prior to discharge. Given 07/24/2023 4:06 PM CDT 10 mL documented in this encounter Care Teams Marketing Campaign Analyst Relationship Specialty Start Date End Date Elsewhere, Pcp PCP - General Internal Medicine 09/26/21 documented as of this encounter
--- OUTSIDE RECORDS SUMMARY | 2023-09-23 18:14 | XMS_ITS | Encounter Summary ---
Author Organization [facility] Address [address] [place] [address] Care Team Providers Care Cafeteria Supervisor Name Role Phone Elsewhere, Pcp Primary Care Provider Unavailabl e Encounter Details Date Type Department Care Team (Late st Contact Info) Description 06/21/2023 Patient Outreach Department of Oncology in [place], [place] [address] [place] [address] Dayan Garber, RSarathNSarath [address] [place] [phone] 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 Tobacco Use Types Packs/Day Years [...] often do you attend chur ch or baptist services? Never 09/22/2021 Do you belong to any clubs o r organizations such as evangelical groups, unions, fraternal or athletic groups, or [...] and heating? Not hard at all 11/22/2022 [facility] of Occupat ional Health - Occupational Stress [...] your living situation today? I have a [facility] place to live 11/22/2022 Education Answer [...] PM CDT Clinical Communication Virtual Review in [place], [place] 200 [place] [address] 10/14/2023 1:30 PM CDT Telemedicine Division of Colon and Rectal Surgery in [address] [phone] Mendy Quintanilla M.D. [address] [place] [phone] 11/04/2023 10:30 AM CDT Comprehensive Visit Division of Hepatobiliary and Pancreas Surgery in [address] [phone] Karlene Noble M.D. [address] [place] [phone] documented as of this encounter Visit Diagnoses Not on filedocumented in this encounter Care Teams Cafeteria Supervisor Relationship Specialty Start Date End Date Elsewhere, Pcp PCP - General Internal Medicine 09/26/21 documented as of this encounter
--- OUTSIDE RECORDS SUMMARY | 2023-09-23 18:14 | XMS_ITS | Encounter Summary ---
Author Organization [facility] Address [address] [place] [address] Care Team Providers Care Heel Turner Name Role Phone Elsewhere, Pcp Primary Care Provider Unavailabl e Encounter Details Date Type Department Care Team (Latest Contact Info) Description 09/05/2023 12:45 PM CDT Clinical Communication Virtual Review in [place], [place] 200 [place] [address] 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 Tobacco Use Types Packs/Day Years [...] often do you attend chur ch or pentecostalism services? Never 09/22/2021 Do you belong to any clubs o r organizations such as hindu groups, unions, fraternal or athletic groups, or [...] and heating? Not hard at all 11/22/2022 [facility] of Occupat ional Health - Occupational [...] PM CDT Clinical Communication Virtual Review in [place], [place] 200 [place] [phone] 10/14/2023 1:30 PM CDT Telemedicine Division of Colon and Rectal Surgery in [address] [phone] Mendy Quintanilla M.D. [address] [place] [phone] 11/04/2023 10:30 AM CDT Comprehensive Visit Division of Hepatobiliary and Pancreas Surgery in [place], [place] [address] [place] [phone] Karlene Noble M.D. [address] [place] [phone] documented as of this encounter Visit Diagnoses Not on filedocumented in this encounter Care Teams Heel Turner Relationship Specialty Start Date End Date Elsewhere, Pcp PCP - General Internal Medicine 09/26/21 documented as of this encounter
--- OUTSIDE RECORDS SUMMARY | 2023-09-23 18:14 | XMS_ITS ---
Author Organization [facility] Address [address] [place] [address] Care Team Providers Care Costing Analyst Name Role Phone Elsewhere, Pcp Primary Care Provider Unavailabl e Active Problems Problem Noted Date Diagnosed Date Secondary Malignant Neoplasm Liver 12/12/2022 Other Printing Assistant Current Drug Therapy 12/12/2022 Hypertension Essential Primary 12/06/2022 Malignant Neoplasm Of Rectum 12/06/2022 Obesity Unspecified 12/06/2022 Mass Hepatic 12/06/2022 Polyneuropathy 06/27/2021 Paresthesia 09/28/2020 Current Oncology Plans FOLFIRI + Bevacizumab ( Fluorouracil / Leucovorin / Irinotecan / Bevacizumab )* Plan Start Date:12/24/2022 Plan Provider:Johnathan José M.D. Linked Problems Secondary Malignant Neoplasm Liver (HCC)Malignant Neoplasm Of Rectum (HCC) Treatment Medications Current Day (Pre-T reatment Tasks - Planned for 12/24/2022) Next Day (Day 1, Cycle 1 - Planned for 12/25/2022) bevacizumab-bvzr (Zirabev)fluorouraciL (AdruciL)irinotecan (Camptosar) No medications scheduled. bevacizumab-bvzr 400 mg in NaCl 0.9% 116 mL IVPB (ZIRABEV)fluorouraciL 5,000 mg in NaCl 0.9% 102 mL IVPB (ADRUCIL)fluorouraciL injection 800 mg (ADRUCIL)irinotecan 380 mg in NaCl 0.9% 519 mL IVPB (CAMPTOSAR) Vascular Access Patency - Implanted Vascular Access Device (IVAD) Venous Non-Valved* Plan Start Date:07/24/2023 Linked Problems Malignant Neoplasm Of Rectum (HCC) Treatment Medications No medications scheduled. Past Plans Flushes/Hydration Plan Name Start Date Discontinue Date Treatment Medications Discontinue Reason Plan Provider Vascular Access Patency - Implanted Vascular Access Device (IVAD) Venous Non-Valved 02/19/2023 07/24/2023 No medications scheduled. Amendment Change - Radiation Treatments * No radiation treatments are documented for this patient in [facility]. Treatments may have been administered in another system. Lifetime Dose Tracking * Chemical Lifetime Dose Automatic Entry Manual Entr y Radiation 5 mGy 5 mGy 0 mGy Fluoro Time 1 minutes 1 minutes 0 minutes DAP (uGy-m2) 131.48 uGy-m2 131.48 uGy-m2 0 uGy-m2
--- OUTSIDE RECORDS SUMMARY | 2023-09-23 18:14 | XMS_ITS | Encounter Summary ---
Author Organization [facility] Address [address] [place] [address] Care Team Providers Care Featheredger And Reducer Machine Name Role Phone Elsewhere, Pcp Primary Care Provider Unavailabl e Encounter Details Date Type Department Care Team (Late st Contact Info) Description 07/24/2023 2:00 PM CDT Lab Department of Infusion Therapy in [place], [place] [address] [place] [phone] Lew Barclay M.D., Ph.D. [address] [place] [phone] Malignant Neoplasm Of Rectum (HCC) (Primary Dx); [...] How often do you attend chur or quaker services? Never 09/22/2021 Do you belong to [...] and heating? Not hard at all 11/22/2022 [facility] of Occupat ional Health - [...] your living situation today? I have a [facility] place to live 11/22/2022 Education Answer [...] PM CDT Clinical Communication Virtual Review in [place], [place] [address] [place] [phone] 10/14/2023 1:30 PM CDT Telemedicine Division of Colon and Rectal Surgery in [place], [place] [address] [place] [phone] Mendy Quintanilla M.D. [address] [place] [phone] 11/04/2023 10:30 AM CDT Comprehensive Visit Division of Hepatobiliary and Pancreas Surgery in [place], [place] [address] [place] [phone] Karlene Noble M.D. [address] [place] [phone] documented as of this encounter Procedures Procedure Name Priority Date/Time Associated Diagnosis Comments CBC WITH DIFFERENTIAL, B Routine 024 1:51 PM CDT Malignant Neoplasm Of Rectum (HCC) Secondary Malignant Neoplasm Liver (HCC) CARCINOEMBRYONIC AG (CEA), S Routine 07/24/2023 1:51 PM CDT Malignant Neoplasm Of Rectum (HCC) Secondary Malignant Neoplasm Liver (HCC) COMPREHENSIVE METABOLIC PANEL, S/P Routine 07/24/2023 1:51 PM CDT Malignant Neoplasm Of Rectum (HCC) Secondary Malignant Neoplasm Liver (HCC) documented in this encounter Results * (ABNORMAL) Comprehensive Metabolic Panel (07/24/2023 1:51 PM CDT) Potassium, S 4.3 3.6 - 5.2 mmol/L [...] Lew Barclay M.D., Ph.D. LAB BLOOD ADD-ON [facility] [address] [place] [address], [facility] [address] [place] [address] * (ABNORMAL) CBC with Differential, Blood (07/24/2023 [...] Lew Barclay M.D., Ph.D. LAB BLOOD ADD-ON [facility] 200 [place] [address], [facility] DTL [facility] 200 [place] [address] [facility] 200 [place] [address] * CEA (Carcinoembryonic Antigen) (07/24/2023 1:51 PM CDT) Carcinoembryonic Ag (CEA), S 2.7 ng/mL 07/24/2023 6:46 PM CDT [facility] Comment: ----REFERENCE VALUE---- <=3.0 (Non-smokers) Some smokers may have elevated CEA, usually <5.0. ----ADDITIONAL INFORMATION---- The testing method is an immunoenzymatic assay manufactured by [employer] and performed on the [employer] 800. ? Values obtained with different assay methods or kits may be different and cannot be used interchangeably. ? Test results cannot be interpreted as absolute evidence for the presence or absence of malignant disease. Blood (Blood, Venous) 07/24/2023 1:51 PM CDT 07/24/2023 5:56 PM CDT Lew Barclay M.D., Ph.D. LAB BLOOD ADD-ON [facility] [address] [place] [address] [facility] [address] [place] [address] documented in this encounter Visit Diagnoses Diagnosis Malignant Neoplasm Of Rectum (HCC)- Primary Secondary Malignant Neoplasm Liver (HCC) documented in this encounter Administered Medications Inactive Administered Medications - up to 3 most recent administrations Medication Order MAR Action Action Date Dose Rate Site heparin flush 500 Units 500 Units, intra-catheter, As needed, line care, Starting on Sat07/24/23 at 1335, When IVAD accessed and not infusing: When no infusion to maintain patency flush every 7 days following NaCL flush. 5 mL (500 units) of Heparin 100 units/mL to each port/lumen. When IVAD not accessed or infusing: When no infusion to maintain patency flush every 28 days following NaCL flush. 5 mL (500 units) of Heparin 100 units/mL to each port/lumen. Given 07/24/2023 1:54 PM CDT 500 Units sodium chloride 0.9 % injection 20-40 mL 20-40 mL, intra-catheter, As needed, line care, Starting on Sat07/24/23 at 1335, When IVAD accessed and infusing: Flush prior to blood sampling, post blood transfusion or post blood sampling. 20 mL to each port/lumen. Given 07/24/2023 1:54 PM CDT 20 mL Given 07/24/2023 1:52 PM CDT 20 mL documented in this encounter Care Teams Featheredger And Reducer Machine Relationship Specialty Start Date End Date Elsewhere, Pcp PCP - General Internal Medicine 09/26/21 documented as of this encounter
--- OUTSIDE RECORDS SUMMARY | 2023-09-23 18:14 | XMS_ITS | Encounter Summary ---
Author Organization [facility] Address [address] [place] [address] Care Team Providers Care Die Tripper Name Role Phone Elsewhere, Pcp Primary Care Provider Unavailabl e Reason for Referral * Outpatient (Routine) - Closed Specialty Diagnoses / Procedures Referred By Tammy t Referred To Contact General Surgery Diagnoses Malignant Neoplasm Of Rectum (HCC) Secondary Malignant Neoplasm Liver (HCC) Johnathan José M.D. [address] [place] [phone] [facility] Referral ID Status Reason Start Date Expiration Date Visits Re quested Visits Authorized [id number] Closed 07/25/2023 01/23/2025 [address] Harrell YANIQUE. Thanks! Reason for Visit * Outpatient (Routine) - Closed Specialty Diagnoses / Procedures Referred By Tammy t Referred To Contact Oncology Lew Barclay M.D., Ph.D. [address] [place] [phone] [facility] Referral ID Status Reason Start Date Expiration Date Visits Re quested Visits Authorized [id number] Closed 04/26/2023 10/25/2024 1 1 Encounter Details Date Type Department Care Team ([facility] st Contact Info) Description 07/25/2023 9:10 AM CDT Telemedicine Department of Oncology in [place], [place] [address] [place] [phone] Johnathan José M.D. [address] [place] [address] Malignant Neoplasm Of Rectum (HCC) (Primary Dx); [...] week 09/22/2021 How often do you attend [facility] or sabianist services? Never 09/22/2021 Do you belong to [...] and heating? Not hard at all 11/22/2022 [facility] - Occupational Stress Questionnaire Answer Date [...] documented as of this encounter Progress Notes * Johnathan José M.D. - 07/25/2023 9:10 AM CDT Images from the original note were not included. This visit with Ms. William was conducted via real-time video technology. I originated the visit from [facility]. She was located in her home. SUBJECTIVE LOCAL ONCOLOGIST No care pressure steamer tender to display [facility]IMARY [place] ONCOLOGIST Ileana Menchaca M.D. Johnathan José M.D. CHIEF COMPLAINT / REASON FOR VISIT Apolonia William is a 78 y.o. female who presents for evaluation of rectal cancer. HISTORY OF PRESENT ILLNESS Oncology History Oncology History Overview Note Diagnosis: Rectal adenocarcinoma, distal Current stage and therapy: T4bN+ Stage at diagnosis: T4bN+ (month/year 10/2022) CEA at diagnosis: 32.6 Molecular characteristics: pMMR, Malignant Neoplasm Of Rectum (HCC) 11/19/2022 Initial Diagnosis Malignant Neoplasm Of Rectum (HCC) complained of about 4 months of pelvis pressure and could not tell if this was coming from the rectum or vagina, though there was a sensation that there was a golf ball that she was sitting on. Her PCP recommended fiber. Her wood casket maker did a pelvis exam which was normal, and then she underwent colonoscopy 11/19/22 Colonoscopy- 2-mm splenic flexure polyp and an infiltrating, nonobstructing, medium-sized mass in the rectum, noncircumferential, estimated to be about 3 cm in length. This was lifted with Eleview, with adequate separation from the submucosa, and removed piecemeal using cold snare. However, incomplete resection was noted due to depth of lesion and proximity to the anal verge 11/19/2022 Biopsy/Pathology Review of Outside Material B. Rectum, tumor, biopsy: Invasive poorly differentiated adenocarcinoma. Background adenoma is present. Immunoperoxidase stains were performed on paraffin sections at the referring institution and reviewed at [facility] in [place], [place]. The tumor cells are positive for SATB2, CK-7 (diffuse and strong), and CK-20 (patchy) Immunohistochemistry for mismatch repair proteins was performed and the neoplastic cells revealed the following: MLH1: Intact MSH2: Intact MSH6: Intact PMS2: Intact The above results indicate proficient mismatch repair function (pMMR). 11/29/[address] CAP Tiny indeterminate nodules in the left lower lobe 1. Low rectal wall thickening consistent with known malignancy. 2. Multiple small ring-enhancing lesions in the liver suspicious for metastases. 11/29/2022 Other CEA- 32.6 ng/mL. 11/30/2022 Critical Imaging MR Pelvis Primary Tumor Location: Residual tumor is identified in the wall of the lower left rectum, with tumor extending into the perirectal fat to abut the left levator plate MR Stage: T4b (tumor invades or adherent to adjacent organs or structures) N plus MRF: Involved (both primary tumor and tumor deposit or EMVI margin within 1 mm of MRF) Sphincter involvement: Absent Suspicious extra mesorectal lymph nodes: Absent EMVI: Absent. 12/06/2022 Biopsy/Pathology Liver biopsy A. Liver, fine needle aspiration (smears/core biopsy): Positive for malignancy. Poorly differentiated adenocarcinoma morphologically and immunophenotypically similar to patient's known rectum neoplasm. Immunohistochemical stains were performed at [facility] (block A1). The neoplastic cells are positive for CDX2 and CK7 while negative for CK20. Comparison with prior rectal tumor biopsy ([id number]) was performed, and the present neoplasm displays similar morphological features. These results support the above interpretation. 12/11/2022 Tumor Board Plan established at the Colorectal Multidisciplinary Tumor Board Liver MRI with Eovist Contrast and Liver Surgery Referral, Port 2. Start Chemo 12/25/2022 - Chemotherapy FOLFIRI + Bevacizumab ( Fluorouracil / Leucovorin / Irinotecan / Bevacizumab ) Start Date: 12/25/2022 (Planned) 04/26/[address] CAP showed interval decrease in size of liver metastatic disease. MRI pelvis showed complete to near complete response of the primary tumor in the rectum. Decreased in the right perirectal lymph node and small perirectal lymph node. Was seen by [facility] surgical team, Ms. William does not want aggressive surgical approach. 07/24/[address] scan showed stable exam without evidence of metastatic disease Abdomen/pelvis CT scan showed: 1. Previous liver metastases further slightly decreased in size since 04/26/2023. Couple of subtle tiny hypodensities in segment 6 of the right hepatic lobe not definitely seen on the prior examination, new tiny metastases a possibility. Attention on follow-up. 2. Otherwise, no evidence for metastatic disease elsewhere in the abdomen or pelvis Interval history: Ms. William was connected via real-time video conference. Mr. William was also able to join our conversation. Ms. William reported she is currently on the decreased intensity chemo treatment with the most recent cycle started on 07/16/2023. She is able to tolerate chemo treatment reasonably well only had occasional diarrhea. She has been able to tolerate oral intake with stable weight. Still able to do all ADL independently and continue her housekeeping were. Allergies and current medications were reviewed. OBJECTIVE This is a virtual visit no physical examination was done DIAGNOSTICS LABORATORY DATA: Lab data reviewed. RADIOLOGICAL DATA: CT of chest/abdomen/pelvis images were reviewed independently and shared in details with Ms. William. ASSESSMENT / PLAN Impression: #1. Metastatic rectal cancer (pMMR, KRAS Q61H mutated, mrT4bN+, baseline CEA was elevated) with biopsy proven liver metastatic disease on systemic treatment with FOLFIRI/bevacizumab with favorable response but declined surgical approach. Plan: #1. Continue systemic treatment (5Fu/Bevacizumab) #2. Explained the difference between surgical approach and systemic treatment only approach, Ms. William would like to meet with our [facility] surgical team again, order was placed Ms. William is a 78-year-old lady who underwent colonoscopy on 11/19/2022 after pelvic pressure for almost 4 months. The colonoscopy revealed a rectal mass that was biopsy-proven to be invasive poorly differentiated adenocarcinoma, pMMR. Further staging workup revealed multiple ring enhancing liver lesions and subsequent biopsy of 1 of the liver lesions confirmed metastatic adenocarcinoma consistentwith colorectal primary. Pelvic MRI staged the primary tumor as T4bN+ with involvement of the left levator muscle and the MRF is involved. Baseline CEA was elevated. Ms. William reported quite significant baseline neuropathy (unknown etiology though). Ms. William then started FOLFIRI/bevacizumab treatment with favorable response. She was seen by our [facility] surgical team after 8 cycles of FOLFIRI/bevacizumab treatment in 04/2023. Ms. William does not want surgical intervention and she was started on maintenance treatment. Ms. William had restaging CT scan done on 07/24/2023 which did not reveal any concerning finding in the thoracic cavity. The liver lesions seemed to be overall stable/slightly decreased in size althoughour radiologist commented on possible tiny new lesions but based on my review, the lesions were there previously. Her blood test also showed continuous decrease of her CEA. I reviewed above information in details with Ms. William and explained to her and her that is benefitting from the systemic treatment and we would recommend to continue treatment. Meanwhile, I explained the difference between a curative-intent surgical approach and palliative systemicchemo treatment approach. I explained to Ms. William that surgery is the only potential curative treatment although she still has high risks for recurrent disease. Also her rectal tumor although responded nicely to chemo based on the pelvic MRI in 04/2023, we still need surgery for the rectal tumor too(unless we have confirmed cCR). After the discussion, Ms. William would like to meet with our liver surgeon again to help her understand the surgery/outcome better, order was placed. All questions were answered. PATIENT EDUCATION Ready to learn, no apparent learning barriers were identified; learning preferences include listening. Explained diagnosis and treatment plan; patient expressed understanding of the content. ADMINISTRATIVE BILLING I personally spent 35 minutes in care of the patient today. Time includes both non face to face andface to face patient care. documented in this encounter Plan of Treatment Upcoming Encounters Date Type Department Care Team (Latest Contact Info) Description 10/09/2023 2:30 PM CDT Clinical Communication Virtual Review in [place], [place] 200 [place] [address] 10/14/2023 1:30 PM CDT Telemedicine Division of Colon and Rectal Surgery in [address] [phone] Mendy Quintanilla M.D. [address] [place] [phone] 11/04/2023 10:30 AM CDT Comprehensive Visit Division of Hepatobiliary and Pancreas Surgery in [address] [phone] Karlene Noble M.D. [address] [place] [phone] Scheduled Referrals Name Type Priority Associated Diagnoses Orde r Schedule General Surgery - Biliary / liver consult (clinic) Outpatient Referral Routine Malignant Neoplasm Of Rectum (HCC) Secondary Malignant Neoplasm Liver (HCC) Expected: 07/25/2023, Expires: 10/23/2024 documented as of this encounter Visit Diagnoses Diagnosis Malignant Neoplasm Of Rectum (HCC)- Primary Secondary Malignant Neoplasm Liver (HCC) documented in this encounter Care Teams Die Tripper Relationship Specialty Start Date End Date Elsewhere, Pcp PCP - General Internal Medicine 09/26/21 documented as of this encounter
--- OUTSIDE RECORDS SUMMARY | 2023-09-23 18:14 | XMS_ITS | Encounter Summary ---
Author Organization [facility] Address [address] [place] [address] Care Team Providers Care Technical Sales Director Name Role Phone Elsewhere, Pcp Primary Care Provider Unavailabl e Encounter Details Date Type Department Care Team (Late st Contact Info) Description 07/31/2023 Clinical Communication Department of Oncology in [place], [place] [address] [place] [address] Johnathan José M.D. [address] [place] [address] 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 Tobacco Use Types Packs/Day Years [...] often do you attend chur ch or judaism services? Never 09/22/2021 Do you belong to any clubs o r organizations such as protestant groups, unions, fraternal or athletic groups, or [...] and heating? Not hard at all 11/22/2022 [facility] - Occupational Stress Questionnaire Answer [...] your living situation today? I have a [facility] place to live 11/22/2022 Education Answer [...] PM CDT Clinical Communication Virtual Review in [place], [place] [address] [place] [address] 10/14/2023 1:30 PM CDT Telemedicine Division of Colon and Rectal Surgery in [place], [place] [address] [place] [phone] Mendy Quintanilla M.D. [address] [place] [phone] 11/04/2023 10:30 AM CDT Comprehensive Visit Division of Hepatobiliary and Pancreas Surgery in [place], [place] [address] [place] [phone] Karlene Noble M.D. [address] [place] [phone] documented as of this encounter Visit Diagnoses Not on filedocumented in this encounter Care Teams Technical Sales Director Relationship Specialty Start Date End Date Elsewhere, Pcp PCP - General Internal Medicine 09/26/21 documented as of this encounter
--- OUTSIDE RECORDS SUMMARY | 2023-09-23 18:14 | XMS_ITS | Encounter Summary ---
Author Organization [facility] Address [address] [place] [address] Care Team Providers Care Photolithographer Name Role Phone Elsewhere, Pcp Primary Care Provider Unavailabl e Reason for Visit * Reason Onset Date Comments Pre-visit Intake 07/23/2023 Encounter Details Date Type Department Care Team (Latest Contact Info) Description 07/23/2023 8:15 AM CDT Clinical Communication Virtual Review in [place], [place] 200 [place] [address] Pre-visit Intake 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 Tobacco Use Types Packs/Day Years [...] often do you attend chur ch or holiness services? Never 09/22/2021 Do you belong to any clubs o r organizations such as latter-day groups, unions, fraternal or athletic groups, or [...] and heating? Not hard at all 11/22/2022 [facility] - [...] your living situation today? I have a [facility] place to live 11/22/2022 Education Answer [...] PM CDT Clinical Communication Virtual Review in [place], [place] 200 [place] [address] 10/14/2023 1:30 PM CDT Telemedicine Division of Colon and Rectal Surgery in [address] [phone] Mendy Quintanilla M.D. [address] [place] [phone] 11/04/2023 10:30 AM CDT Comprehensive Visit Division of Hepatobiliary and Pancreas Surgery in [address] [phone] Karlene Noble M.D. [address] [place] [phone] documented as of this encounter Visit Diagnoses Not on filedocumented in this encounter Care Teams Photolithographer Relationship Specialty Start Date End Date Elsewhere, Pcp PCP - General Internal Medicine 09/26/21 documented as of this encounter
--- OUTSIDE RECORDS SUMMARY | 2023-09-23 18:14 | XMS_ITS | Referral Summary ---
Author Organization [facility] Address [address] [place] [address] Care Team Providers Care Cmm Programmer Name Role Phone Elsewhere, Pcp Primary Care Provider Unavailabl e Source Comments Patient records contain information from all sites at [facility]. For routine questions regarding patient records, call [phone] during business hours, M-F 8:00 AM - 5:00 PM Central Time. Record requests for emergency care only can be directed to [phone] at any time.[facility] Encounters Date Type Department Care Team Description 09/18/2023 Clinical Communication Department of Oncology in [place], [place] [address] [place] [phone] Johnathan José M.D. 09/18/2023 Orders Only Department of Oncology in [place], [place] [address] [place] [phone] Johnathan José M.D. Malignant Neoplasm Of Rectum (HCC) (Primary Dx); Secondary Malignant Neoplasm Liver (HCC) 09/17/2023 10:30 AM CDT Comprehensive Visit Division of Hepatobiliary and Pancreas Surgery in [place], [place] [address] [place] [phone] Mahad Harrell M.D., Ph.D. Malignant Neoplasm Of Rectum (HCC); Secondary Malignant Neoplasm Liver (HCC) 09/12/2023 6:22 AM CDT - 09/12/2023 11:59 PM CDT Hospital Encounter Department of Radiology, [facility], in [place], [place] [address] [place] [phone] Johnathan José M.D. Malignant Neoplasm Of Rectum (HCC) Discharge Disposition: Home or Self Care 09/06/2023 7:14 AM CDT - 09/06/2023 11:59 PM CDT Hospital Encounter Department of Radiology, [facility], in [address] [phone] Johnathan José M.D. Malignant Neoplasm Of Rectum (HCC) Discharge Disposition: Home or Self Care 09/05/2023 12:45 PM CDT Clinical Communication Virtual Review in [address] [phone] 07/31/2023 Clinical Communication Department of Oncology in [address] [phone] Johnathan José M.D. 07/31/2023 Orders Only Department of Oncology in [address] [phone] Dayan Garber R.N. Malignant Neoplasm Of Rectum (HCC) (Primary Dx) 07/25/2023 9:10 AM CDT Telemedicine Department of Oncology in [address] [phone] Johnathan José M.D. Malignant Neoplasm Of Rectum (HCC) (Primary Dx); Secondary Malignant Neoplasm Liver (HCC) 07/24/2023 2:00 PM CDT Lab Department of Infusion Therapy in [address] [phone] Lew Barclay M.D., Ph.D. Malignant Neoplasm Of Rectum (HCC) (Primary Dx); Secondary Malignant Neoplasm Liver (HCC) 07/24/2023 3:06 PM CDT - 07/24/2023 11:59 PM CDT Hospital Encounter Department of Radiology, [facility], in [address] [phone] Lew Barclay M.D., Ph.D. Malignant Neoplasm Of Rectum (HCC); Secondary Malignant Neoplasm Liver (HCC) Discharge Disposition: Home or Self Care 07/23/2023 8:15 AM CDT Clinical Communication Virtual Review in [place], [place] [address] [place] [address] Pre-visit Intake 07/22/2023 Clinical Communication Department of Oncology in [place], [place] [address] [place] [address] Johnathan José M.D. Appt Request from Last 3 Months Allergies Active Allergy Reactions Criticality Noted Date [...] Date Secondary Malignant Neoplasm Liver 12/12/2022 Other Retirement Current Drug Therapy 12/12/2022 Hypertension Essential Primary 12/06/2022 Malignant Neoplasm Of Rectum 12/06/2022 Obesity Unspecified 12/06/2022 Mass Hepatic 12/06/2022 Polyneuropathy 06/27/2021 Paresthesia 09/28/2020 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 Tobacco Use Types Packs/Day Years [...] How often do you attend chur or confucianist services? Never 09/22/2021 Do you belong to any clubs o r organizations such as mandaeism groups, unions, fraternal [...] and heating? Not hard at all 11/22/2022 [facility] - Occupational Stress Questionnaire Answer Date [...] the money to buy more. Never true 08/24/20 23 Within the past 12 months, t [...] your living situation today? I have a [facility] place to live 11/22/2022 Education [...] Comments Blood Pressure 149/82 04/26/2023 2:25 PM GROCERY CLERK SELLING Pulse 65 09/12/2023 8:09 AM CDT Temperature 37.2 ??C (99 ??F) 04/26/2023 2:25 PM GROCERY CLERK SELLING Respiratory Rate 15 09/12/2023 8:09 AM CDT Oxygen Saturation 96% 09/12/2023 8:09 AM CDT Inhaled Oxygen Concentration - - Weight 78.9 kg (174 lb) 09/06/2023 7:56 AM CDT Height 169.8 cm (5' 6.85) 04/26/2023 2:25 PM CS T Body Mass Index 27.37 04/26/2023 2:25 PM GROCERY CLERK SELLING Plan of Treatment Upcoming Encounters Date Type Department Care Team (Latest Contact Info) Description 10/09/2023 2:30 PM CDT Clinical Communication Virtual Review in [place], [place] 200 [place] [address] 10/14/2023 1:30 PM CDT Telemedicine Division of Colon and Rectal Surgery in [address] [phone] Mendy Quintanilla M.D. [address] [place] [phone] 11/04/2023 10:30 AM CDT Comprehensive Visit Division of Hepatobiliary and Pancreas Surgery in [address] [phone] Karlene Noble M.D. [address] [place] [phone] Medical Devices Implanted Type Area Leather Belt Loop Cutter Device Identifier Shelf Expiration Date Model / Serial / Lot Hardware E.G. Pins/Screws/R ods Hardware e.g. pins/screws/clayton s Right: Wrist Description:Titanium plate Prt Cath Infus Mri Intrmd 8f - [id number] Implanted:Qty : 1 on 12/17/2022 by Alfie Merino M.D. at [facility] Implantable [employer] 05/29/2024 [id number] / / [id number] Procedures Procedure Name Priority Date/Time Associated Diagnosis [...] mesorectal lymph nodes: Absent Johnathan José M.D. [facility] [place] * CT Abdomen Pelvis with [...] Lew Barclay M.D., Ph.D. LAB BLOOD ADD-ON [place] [address] [place] [address] DTL [facility] [address] [place] [address] [facility] [address] [place] [address] * CEA (Carcinoembryonic Antigen) (07/24/2023 1:51 PM CDT) [facility] Carcinoembryonic Ag (CEA), S 2.7 ng/mL 07/24/2023 6:46 PM CDT [facility] Comment: ----REFERENCE VALUE---- <=3.0 (Non-smokers) Some smokers may have elevated CEA, usually <5.0. ----ADDITIONAL INFORMATION---- The testing method is an immunoenzymatic assay manufactured by [employer]. and performed on the BECCI 800. ? Values obtained with different assay methods or kits may be different and cannot be used interchangeably. ? Test results cannot be interpreted as absolute evidence for the presence or absence of malignant disease. Blood (Blood, Venous) 07/24/2023 1:51 PM CDT 07/24/2023 5:56 PM CDT Lew Barclay M.D., Ph.D. LAB BLOOD ADD-ON [facility] [address] [place] [address] [facility] [address] [place] [address] * (ABNORMAL) Comprehensive Metabolic Panel (07/24/2023 1:51 PM CDT) [facility] Potassium, S 4.3 3.6 - 5.2 mmol/L [...] Lew Barclay M.D., Ph.D. LAB BLOOD ADD-ON [facility] [address] [place] [address], [facility] [address] [place] [address] from Last 3 Months Care Teams Cmm Programmer Relationship Specialty Start Date End Date Elsewhere, Pcp PCP - General Internal Medicine 09/26/21
--- OUTSIDE RECORDS SUMMARY | 2023-09-23 18:14 | XMS_ITS | Encounter Summary ---
Author Organization [facility] Address [address] [place] [address] Care Team Providers Care Sales Secretary Name Role Phone Elsewhere, Pcp Primary Care Provider Unavailabl e Reason for Visit * Reason Onset Date Comments Appt Request 07/22/2023 Encounter Details Date Type Department Care Team (Late st Contact Info) Description 07/22/2023 Clinical Communication Department of Oncology in [place], [place] [address] [place] [address] Johnathan José M.D. [address] [place] [address] Appt Request 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 Tobacco Use Types Packs/Day Years [...] often do you attend chur ch or episcopal services? Never 09/22/2021 Do you belong to any clubs o r organizations such as taoist groups, unions, fraternal or athletic groups, or [...] at all 11/22/2022 [facility] - Occupational Stress Questionnaire Answer Date [...] your living situation today? I have a [facility] place to live 11/22/2022 Education Answer [...] PM CDT Clinical Communication Virtual Review in [place], [place] 200 [place] [address] 10/14/2023 1:30 PM CDT Telemedicine Division of Colon and Rectal Surgery in [place], [place] [address] [place] [phone] Mendy Quintanilla M.D. [address] [place] [phone] 11/04/2023 10:30 AM CDT Comprehensive Visit Division of Hepatobiliary and Pancreas Surgery in [place], [place] [address] [place] [phone] Karlene Noble M.D. [address] [place] [phone] documented as of this encounter Visit Diagnoses Not on filedocumented in this encounter Care Teams Sales Secretary Relationship Specialty Start Date End Date Elsewhere, Pcp PCP - General Internal Medicine 09/26/21 documented as of this encounter
== END 2023-09-19 09:26 | disposition home or self-care (01) ==
LOC: NFLDREF 09-23 18:11
PROVIDERS: PCP Family Medicine; Referring Provider Family Medicine; Visit Provider Family Medicine
DX: E78.5 Hyperlipidemia, unspecified (principal); Z13.1 Encounter for screening for diabetes mellitus
CPT/HCPCS: 80061; 82947

== ENCOUNTER 2023-11-30 08:27 | Emergency (ER) | payer MEDICARE, SELFPAY ==
[2023-11-30 08:31] VITALS: BP 185/76; PULSE 69; RESP 16; TEMP 35.6; O2SAT 98; BMI 27.3
--- NOTE | 2023-11-30 08:39 | CRLHL7_ITS ---
For Patients: As a result of the Century Cures Act, medical imaging exams and procedure reports are released immediately into your electronic medical record. You may view this report before your referring provider. If you have questions, please contact your health care provider. Indication: Trauma, fall. Technique: Right foot 3 views. Comparison: None. Findings/Impression: Bones: Acute transverse nondisplaced fracture of the base of the right 5th metatarsal. No other osseous abnormality. Joint spaces: Unremarkable. Soft tissues: Unremarkable. Dictated by Teodoro Knott MD @ 11/30/2023 9:13:01 AM (Electronically Signed)
--- NOTE | 2023-11-30 09:24 | ED.LOWEXIN ---
HPI - Extremity Injury (Lower) General Chief Complaint: Extremity Pain/Injury, Lower Stated Complaint: rt foot pain Time Seen by Provider: 11/30/23 09:08 History of Present Illness HPI Narrative: This 78-year-old female comes in with an injury to her right foot that occurred prior to arrival this morning. She slipped and fell at home and has pain on the lateral aspect of her right foot. There is also some swelling and bruising. She does not report any other injury. She did not hit her head or have loss of consciousness. Related Data Home Medications ?Medication ?Instructions ?Recorded ?Confirmed aspirin 81 mg tablet,delayed 81 mg PO DAILY 01/01/22 11/05/23 release cholecalciferol (vitamin D3) 25 25 mcg PO QDAY 01/01/22 11/05/23 mcg (1,000 unit) capsule cyanocobalamin (vitamin B-12) 1,000 mcg PO DAILY 01/01/22 11/05/23 1,000 mcg tablet,extended release diphenhydramine 25 0.5 tab PO HS 01/01/22 11/05/23 mg-acetaminophen 500 mg tablet multivitamin 1 tab PO QDAY 01/01/22 11/05/23 polyethylene glycol 3350 17 4 g PO DAILY PRN 12/27/22 11/05/23 gram/dose oral powder (Miralax) ondansetron HCl 8 mg tablet 8 mg PO Q8H PRN 01/09/23 11/05/23 prochlorperazine maleate 10 mg 10 mg PO Q6H PRN nausea/vomiting 01/09/23 11/05/23 tablet Previous Rx's ?Medication ?Instructions ?Recorded lidocaine HCl 2 % mucosal solution 1 applic mucous membrane QID PRN 03/26/23 (Lidocaine Viscous) mouth pain #100 mL loperamide 2 mg capsule 2 - 4 mg (1 - 2 x 2 mg) PO Q4H PRN 07/16/23 loose stool #45 caps potassium chloride 20 mEq 20 meq PO .COMPLEX low potassium 07/16/23 tablet,extended release #240 tabs hydrochlorothiazide 12.5 mg tablet 12.5 mg PO QAM #90 tabs 09/02/23 metoprolol tartrate 50 mg tablet 50 mg PO BID #180 tabs 09/02/23 omeprazole 20 mg capsule,delayed 20 mg PO DAILY PRN reflux #90 caps 09/02/23 release simvastatin 20 mg tablet 20 mg PO HS #90 tabs 09/02/23 sertraline 50 mg tablet 50 mg PO QDAY #30 tabs 09/26/23 Allergies Allergy/AdvReac Type Severity Reaction Status Date / Time adhesive Allergy Severe Blister Verified 11/19/23 10:29 Review of Systems Status of ROS: Reports: 10 or more systems reviewed and unremarkable except as noted in History and below Narrative: Constitutional: No fevers, no weight gain or loss. Eyes: No discharge. No vision changes. HENT: No congestion, no sore throat, no ear pain. Cardiovascular: No chest pain, no palpitations. Respiratory: No shortness of breath, no wheezes, no cough. Gastrointestinal: No abdominal pain, no vomiting, no diarrhea. Genitourinary: No dysuria, no hematuria. Musculoskeletal: Right foot injury as described above. Skin: No rashes, no pruritis. Neurological: No dizziness, weakness, sensory change, speech change. Endo/Heme/Allergies: No bruising or bleeding. No polydipsia. Pysch: no suicidality, no anxiety, no insomnia. All other systems reviewed and are negative. [facility] Medical History Diarrhea ?R19.7 - Diarrhea, unspecified (ICD-10) Neutropenia ?D70.9 - Neutropenia, unspecified (ICD-10) History of colonic polyps ?Z86.010 - Personal history of colonic polyps (ICD-10) Closed fracture of distal radius and ulna (02/03/19) ?S52.509A - Unspecified fracture of the lower end of unspecified radius, initial encounter for closed fracture (ICD-10) ?S52.609A - Unspecified fracture of lower end of unspecified ulna, initial encounter for closed fracture (ICD-10) Surgical History History of surgery on right wrist (01/2019) ?Z98.890 - Other specified postprocedural states (ICD-10) Status post de Quervain's release surgery (09/2016) ?Z98.890 - Other specified postprocedural states (ICD-10) History of left knee surgery (12/2012) ?Z98.890 - Other specified postprocedural states (ICD-10) History of cholecystectomy (07/2015) ?Z90.49 - Acquired absence of other specified parts of digestive tract (ICD-10) Family History Father Heart disease High blood pressure High cholesterol 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 (Updated 08/30/23 @ 08:26 by Maria Fernanda Lin ~ CTA) 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 What is your current living situation?: I presently have a place to live Problems where you live: declined to answer In the past 12 months, utilities in danger of being shut off: no In past 12 months, lack of transportation kept you from medical appts, meetings, work, or getting things needed for daily living: no In the past 12 mos, have been you worried that your food would run out before you had money to buy more?: never true In the past 12 mos, the food you bought just didn't last and you didn't have money to buy more?: never true Smoking Status: Never smoker How often do you have a drink containing alcohol: monthly or less AUDIT-C Alcohol total score: 1 Non-prescribed substance use: denies use Are you now , , , , never or living with a partner: Social isolation score (0-1 are the most socially isolated patients): 1 How often does anyone, including family, friends and others, physically hurt you: never How often does anyone, including family, friends and others, insult or talk down to you: never How often does anyone, including family, friends and others, threaten you with harm: never How often does anyone, including family, friends and others, scream or curse at you: never Little interest or pleasure in doing things: not at all Feeling down, depressed, or hopeless: several days Do you think of yourself as: straight/heterosexual Gender Identity: female Are you currently sexually active: No service: No Exam Narrative: Exam Narrative: Constitutional: Well-developed, well-nourished, no acute distress. HEENT: Normocephalic, atraumatic. Neck: Normal range of motion. Nontender. Supple. Heart: Intact distal pulses. Lungs: No chest discomfort. No wheezes, rhonchi, or rales. Abdomen: Nontender. Back: Normal range of motion. Extremities: Tenderness with mild swelling and some ecchymosis along the lateral aspect of the right foot more localized at the proximal 5th metatarsal. Skin: Intact. No rash. Warm. No erythema or pallor. Neurologic: No altered sensation. No weakness. Alert and oriented. Psychiatric: No suicidality. No anxiety or depression. No insomnia. Nursing notes and vitals signs are reviewed. Const: Vital Signs, click to edit/add: Vital Signs - 24 hr 11/30/23 08:31 Temperature 96.0 F L Pulse Rate [Pulse Oximeter] 69 Respiratory Rate 16 Blood Pressure [Ri ght Upper Arm] 185/76 H Pulse Oximetry 98 Oxygen Delivery Me thod Room Air Course Vital Signs Vital signs: Initial Vital Signs Temperature 96.0 F L 11/30/23 08:31 Temperature Source Temporal Artery Scan 11/30/23 08:31 Pulse Rate 69 11/30/23 08:31 Respiratory Rate 16 11/30/23 08:31 Blood Pressure 185/76 H 11/30/23 08:31 Blood Pressure Mean 112 H 11/30/23 08:31 Blood Pressure Position Sitting 11/30/23 08:31 Pulse Oximetry 98 11/30/23 08:31 Oxygen Delivery Method Room Air 11/30/23 08:31 Vital Signs Temperature 96.0 F L 11/30/23 08:31 Pulse Rate 69 11/30/23 08:31 Respiratory Rate 16 11/30/23 08:31 Blood Pressure 185/76 H 11/30/23 08:31 Pulse Oximetry 98 11/30/23 08:31 Oxygen Delivery Method Room Air 11/30/23 08:31 Temperature 96.0 F L 11/30/23 08:31 Pulse Rate 69 11/30/23 08:31 Respiratory Rate 16 11/30/23 08:31 Blood Pressure 185/76 H 11/30/23 08:31 Pulse Oximetry 98 11/30/23 08:31 Oxygen Delivery Method Room Air 11/30/23 08:31 MDM - Extremity Injury (Lower) MDM Narrative Medical decision making narrative: This patient comes in with an injury to her right foot. X-ray imaging does show a fracture of the proximal portion of the right 5th metatarsal. There is minimal displacement. It does not appear to be a Snider type fracture but I emphasized to the patient the importance of follow-up with orthopedic clinic to ensure proper healing of this injury. I did discuss options for management including a splint with crutches or a walking boot. The patient prefers a walking boot so this was ordered for her. Discharge Plan Discharge Clinical Impression: Foot fracture, right Patient Disposition: Home w/ Parent or Adult Condition: Stable Additional Instructions: Wear walking boot when ambulating. Follow up next week with orthopedic clinic. Call [phone] for appointment. Return if worsening. Prescriptions: No Action aspirin 81 mg tablet,delayed release (DR/EC) 81 mg PO DAILY cholecalciferol (vitamin D3) 25 mcg (1,000 unit) capsule 25 mcg PO QDAY diphenhydramine-acetaminophen 25-500 mg tablet 0.5 tab PO HS multivitamin Tablet 1 tab PO QDAY cyanocobalamin (vitamin B-12) 1,000 mcg tablet extended release 1,000 mcg PO DAILY potassium chloride 20 mEq tablet extended release 20 meq PO .COMPLEX Qty: 240 1RF Rx Instructions: Take 2 - 20 meq tablets 3 days per week, and Take 3 - 20 meq tablets 4 days per week. loperamide 2 mg capsule 2 - 4 mg PO Q4H MDD 8 capsules PRN (Reason: loose stool) Qty: 45 1RF polyethylene glycol 3350 [Miralax] 17 gram/dose powder 4 g PO DAILY PRN hydrochlorothiazide 12.5 mg tablet 12.5 mg PO QAM Qty: 90 3RF metoprolol tartrate 50 mg tablet 50 mg PO BID Qty: 180 3RF omeprazole 20 mg capsule,delayed release(DR/EC) 20 mg PO DAILY PRN (Reason: reflux) Qty: 90 3RF simvastatin 20 mg tablet 20 mg PO HS Qty: 90 3RF sertraline 50 mg tablet 50 mg PO QDAY Qty: 30 1RF ondansetron HCl 8 mg tablet 8 mg PO Q8H PRN prochlorperazine maleate 10 mg tablet 10 mg PO Q6H PRN (Reason: nausea/vomiting) lidocaine HCl [Lidocaine Viscous] 2 % solution 1 applic mucous membrane QID PRN (Reason: mouth pain) Qty: 100 1RF Patient Comments: has this but hasn't used it yet Rx Instructions: Swish in mouth for 30-60 seconds, then spit. Apply 15-30 minutes before eating prn. Follow Up/Referrals: Abrahan Nieto MD [Primary Care Provider] - Stand Alone Forms: [employer] Info Instructions
--- OUTSIDE RECORDS SUMMARY | 2023-11-30 09:40 | XMS_ITS | Clinical Summary ---
Author Organization [facility] Address [address] [place] [address] Care Team Providers Care Data Visualization Developer Name Role Phone Elsewhere, Pcp Primary Care Provider Unavailabl e Source Comments Patient records contain information from all sites at [facility]. For routine questions regarding patient records, call [phone] during business hours, M-F 8:00 AM - 5:00 PM Central Time. 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 Malignant Neoplasm Of Rectum (HCC); Secondary Malignant Neoplasm Liver (HCC) 10/22/2023 Orders Only Division of Colon and Rectal Surgery in [place], [place] [address] [place] [phone] Mendy Quintanilla M.D. Malignant Neoplasm Of Rectum (HCC) (Primary Dx) 10/22/2023 Clinical Communication Division of Colon and Rectal Surgery in [place], [place] [address] [place] [phone] Mendy Quintanilla M.D. 10/15/2023 2:00 PM CDT Office Visit Department of Oncology in [place], [place] [address] [place] [phone] Elisabeth Turner M.D. Malignant Neoplasm Of Rectum (HCC) (Primary Dx); Secondary Malignant Neoplasm Liver (HCC) 10/15/2023 9:20 AM CDT - 10/15/2023 5:37 PM CDT Hospital Encounter Department of Radiation Oncology in [place], [place] [address] [place] [phone] Beto Johnson M.D. Malignant Neoplasm Of Rectum (HCC) 10/15/2023 8:20 AM CDT Lab Department of Infusion Therapy in [place], [place] [address] [place] [phone] Johnathan José M.D. Malignant Neoplasm Of Rectum (HCC) (Primary Dx); Secondary Malignant Neoplasm Liver (HCC) 10/15/2023 Clinical Communication Division of Colon and Rectal Surgery in [place], [place] [address] [place] [phone] Mendy Quintanilla M.D. 10/14/2023 1:30 PM CDT Telemedicine Division of Colon and Rectal Surgery in [place], [place] [address] [place] [phone] Mendy Quintanilla M.D. Malignant Neoplasm Of Rectum (HCC) (Primary Dx); Secondary Malignant Neoplasm Liver (HCC); Neuropathy; Immunodeficiency Due To Drugs (HCC) 10/14/2023 Orders Only Division of Colon and Rectal Surgery in [address] [phone] Shena Fry, Aureliano. Malignant Neoplasm Of Rectum (HCC) (Primary Dx) 10/09/2023 2:30 PM CDT Clinical Communication Virtual Review in [address] [phone] Pre-visit Intake 09/25/2023 Patient Outreach Department of Oncology in [address] [phone] Dayan Garber M.S.N., R.N. 09/18/2023 Clinical Communication Department of Oncology in [address] [phone] Johnathan José M.D. 09/18/2023 Orders Only Department of Oncology in [address] [phone] Johnathan José M.D. Malignant Neoplasm Of Rectum (HCC) (Primary Dx); Secondary Malignant Neoplasm Liver (HCC) 09/17/2023 10:30 AM CDT Comprehensive Visit Division of Hepatobiliary and Pancreas Surgery in [address] [phone] Mahad Harrell M.D., Ph.D. Malignant Neoplasm Of Rectum (HCC); Secondary Malignant Neoplasm Liver (HCC) 09/12/2023 6:22 AM CDT - 09/12/2023 11:59 PM CDT Hospital Encounter Department of Radiology, [facility], in [address] [phone] Johnathan José M.D. Malignant Neoplasm Of Rectum (HCC) Discharge Disposition: Home or Self Care 09/06/2023 7:14 AM CDT - 09/06/2023 11:59 PM CDT Hospital Encounter Department of Radiology, [facility], in [address] [phone] Johnathan José M.D. Malignant Neoplasm Of Rectum (HCC) Discharge Disposition: Home or Self Care 09/05/2023 12:45 PM CDT Clinical Communication Virtual Review in [place], [place] [address] [place] [phone] from Last 3 Months Family History Medical [...] often do you attend chur ch or jainism services? Never 09/22/2021 Do you belong to any clubs o r organizations such as hoahaoism groups, unions, fraternal or athletic groups, or [...] and heating? Not hard at all 11/22/2022 [facility] - Occupational Stress [...] your living situation today? [facility] 11/22/2022 Education Answer Date [...] Sign Reading Time Taken Comments Blood Pressure 145/82 10/15/2023 1:51 PM CDT Pulse 64 10/15/2023 1:51 PM CDT Temperature 36.4 ??C (97.5 ??F) 10/15/2023 1:51 PM CD T Respiratory Rate 15 10/15/2023 1:51 PM CDT Oxygen Saturation 98% 10/15/2023 1:51 PM CDT Inhaled Oxygen Concentration - - Weight 79.2 kg (174 lb 9.7 oz) 11/04/2023 10:22 AM CDT Height 171.1 cm (5' 7.36) 11/04/2023 10:22 AM C DT Body Mass Index 27.05 11/04/2023 10:22 AM CDT Plan of Treatment Upcoming Encounters Date Type Department Care Team (Latest Contact Info) Description 12/13/2023 12:30 PM CDT Clinical Communication Virtual Review in [address] [phone] 12/16/2023 7:15 AM CDT Appointment Department of Radiology, [facility], in [address] [phone] Elisabeth Turner M.D. [address] [place] [phone] 12/16/2023 8:20 AM CDT Lab Department of Infusion Therapy in [address] [phone] Elisabeth Turner M.D. [address] [place] [phone] 12/16/2023 9:15 AM CDT Clinical Support [facility] Facility in [place], [place] [address] [place] [phone] Mendy Quintanilla M.D. [address] [place] [phone] 12/16/2023 10:30 AM CDT Office Visit Division of Colon and Rectal Surgery in [place], [place] [address] [place] [phone] Mendy Quintanilla M.D. [address] [place] [phone] 12/16/2023 10:30 AM CDT Appointment Division of Colon and Rectal Surgery in [place], [place] [address] [place] [phone] Mendy Quintanilla M.D. [address] [place] [phone] Discharge Disposition: Home or Self Care 12/16/2023 11:00 AM CDT Office Visit Department of Oncology in [place], [place] [address] [place] [phone] Elisabeth Turner M.D. [address] [place] [phone] Health Maintenance Due Date Last Done Comments Hepatitis C Screening 1945 Hepatitis A Vaccines (1 of 2 - Risk 2-dose series) 1966 Zoster Vaccines (1 of 2) 1966 Hepatitis B Vaccines (1 of 3 - Risk 3-dose series) 2007 COVID-19 Vaccine ( season) 2023 01/01/2023, 08/07/2022, 12/20/2021, Additional history exists Depression Screening (Annual PHQ-2) 04/01/2023 Fall Risk Screen (Annual) 04/01/2023 Influenza Vaccine (#1) 2023 3, 01/31/2022, 01/12/2020, Additional history exists Office Visit for Blood Pressure Check / Re-check 01/15/2024 10/15/2023 Creatinine Level (Kidney Function Test) 10/14/2024 10/15/2023, 07/24/2023, 04/26/2023, Additional history exists Potassium Level 10/14/2024 10/15/2023, 07/01, 04/26/2023, Additional history exists Sodium Level 10/14/2024 10/15/2023, 07/01, 04/26/2023, Additional history exists DTaP,Tdap,and Td Vaccines (2 - Td or Tdap) 08/10/2030 08/10/2020 Pneumococcal vaccine (65+ years) Completed 08/14/2021, 01/30/2019 HPV Vaccines Aged Out No longer eligi ble based on patient's age to complete this topic Medical Devices Implanted Type Area Epic [employer] Device Identifier Shelf Expiration Date Model / Serial / Lot Hardware E.G. Pins/Screws/R ods Hardware e.g. pins/screws/clayton s Right: Wrist Description:Titanium plate Prt Cath Infus Mri Intrmd 8f - [id number] Implanted:Qty : 1 on 12/17/2022 by Alfie Merino M.D. at [facility] Implantable [place] [employer] 05/29/2024 [id number] / / [id number] Procedures Procedure Name Priority Date/Time Associated Diagnosis Comments CBC WITH DIFFERENTIAL, B Routine 10/15/2023 8:15 AM CDT Malignant Neoplasm Of Rectum (HCC) Secondary Malignant Neoplasm Liver (HCC) CARCINOEMBRYONIC AG (CEA), S Routine 10/15/2023 8:15 AM CDT Malignant Neoplasm Of Rectum (HCC) Secondary Malignant Neoplasm Liver (HCC) COMPREHENSIVE METABOLIC PANEL, S/P Routine 10/15/2023 8:15 AM CDT Malignant Neoplasm Of Rectum (HCC) Secondary Malignant Neoplasm Liver (HCC) MR ABDOMEN WITHOUT AND WITH IV CONTRAST RAD - Routine (most inpatients and all outpatients) 09/12/2023 7:59 AM CDT Malignant Neoplasm Of Rectum (HCC) MR PELVIS RECTAL CA STAGING WITHOUT IV CONTRAST RAD - Routine (most inpatients and all outpatients) 09/06/2023 9:11 AM CDT Malignant Neoplasm Of Rectum (HCC) from Last 3 Months Results * (ABNORMAL) CBC with Differential, Blood (10/15/2023 8:15 AM CDT) Hemoglobin 14.1 11.6 - 15.0 g/dL 10/15/2023 8:53 AM CDT DTL Hematocrit 42.8 35.5 - 44.9 % 10/15/2023 8:53 AM CDT DTL Erythrocytes 4.13 3.92 - 5.13 x10(12)/L 10/15/2023 8:53 AM CDT DTL MCV 103.6(H) 78.2 - 97.9 fL 10/15/2023 8:53 AM CDT DTL RBC Distrib Width 14.2 12.2 - 16.1 % 10/15/2023 8:53 AM CDT DTL Platelet Count 178 157 - 371 x10(9)/L 10/15/2023 8:53 AM CDT DTL Leukocytes 8.2 3.4 - 9.6 x10(9)/L 10/15/2023 8:53 AM CDT DTL Neutrophils 4.02 1.56 - 6.45 x10(9)/L 10/15/2023 8:53 AM CDT DHPM Lymphocytes 2.53 0.95 - 3.07 x10(9)/L 10/15/2023 8:53 AM CDT DTL Monocytes 1.18(H) 0.26 - 0.81 x10(9)/L 10/15/2023 8:53 AM CDT DTL Eosinophils 0.38 0.03 - 0.48 x10(9)/L 10/15/2023 8:53 AM CDT DTL Basophils 0.06 0.01 - 0.08 x10(9)/L 10/15/2023 8:53 AM CDT DTL Blood (Blood, Venous) 10/15/2023 8:15 AM CDT 10/15/2023 8:28 AM CDT Johnathan José M.D. LAB BLOOD ADD-ON [facility] [address] [place] [address], [facility] DTL [facility] [address] [place] [address] DHPM [facility] [address] [place] [address] * (ABNORMAL) CEA (Carcinoembryonic Antigen) (10/15/2023 8:15 AM CDT) Carcinoembryonic Ag (CEA), S 9.4(H) ng/mL 10/15/2023 2:55 PM CDT [facility] Comment: ----REFERENCE VALUE---- <=3.0 (Non-smokers) Some smokers may have elevated CEA, usually <5.0. ----ADDITIONAL INFORMATION---- The testing method is an immunoenzymatic assay manufactured by [employer]. and performed on the YurpyI 800. ? Values obtained with different assay methods or kits may be different and cannot be used interchangeably. ? Test results cannot be interpreted as absolute evidence for the presence or absence of malignant disease. Blood (Blood, Venous) 10/15/2023 8:15 AM CDT 10/15/2023 1:48 PM CDT Johnathan José M.D. LAB BLOOD ADD-ON [facility] [address] [place] [address] [facility] [address] [place] [address] * (ABNORMAL) Comprehensive Metabolic Panel (10/15/2023 8:15 AM CDT) Pathologist [facility] Potassium, S 4.5 3.6 - 5.2 mmol/L 10/15/2023 9:03 AM CDT DTL Sodium, S 140 135 - 145 mmol/L 10/15/2023 9:03 AM CDT DTL Chloride, S 106 98 - 107 mmol/L 10/15/2023 9:03 AM CDT DTL Bicarbonate, S 24 22 - 29 mmol/L 10/15/2023 9:03 AM CDT DTL Anion Gap 10 7 - 15 10/15/2023 9:03 AM CDT DTL BUN (Blood Urea Nitrogen), S 8 6 - 21 mg/dL 10/15/2023 9:03 AM CDT DTL Creatinine 0.90 0.59 - 1.04 mg/dL 10/15/2023 9:03 AM CDT DTL Estimated GFR (eGFR) 66 >=60 mL/min/BS A 10/15/2023 9:03 AM CDT DTL Comment: Estimated GFR calculated using the 2020 CKD_EPI creatinine equation. Calcium, Total, S 9.1 8.8 - 10.2 mg/dL 10/15/2023 9:03 AM CDT DTL Glucose, S 92 70 - 140 mg/dL 10/15/2023 9:03 AM CDT DTL Protein, Total, S 6.0(L) 6.3 - 7.9 g/dL 10/15/2023 9:03 AM CDT DTL Albumin, S 4.1 3.5 - 5.0 g/dL 10/15/2023 9:03 AM CDT DTL Aspartate Aminotransferase (AST), S 25 8 - 43 U/L 10/15/2023 9:03 AM CDT DTL Alkaline Phosphatase, S 96 35 - 104 U/L 10/15/2023 9:03 AM CDT DTL Alanine Aminotransferase (ALT), S 28 7 - 45 U/L 10/15/2023 9:03 AM CDT DTL Bilirubin, Total, S 0.4 0.0 - 1.2 mg/dL 10/15/2023 9:03 AM CDT DTL Blood (Blood, Venous) 10/15/2023 8:15 AM CDT 10/15/2023 8:37 AM CDT Johnathan José M.D. LAB BLOOD ADD-ON [address] [address] [address] [place] [address] * MR Abdomen without and with IV [...] extrahepatic abdominal metastatic disease identified.Hepatic steatosis. Johnathan José M.D. Shae MRI PROCEDURES * MR Pelvis Rectal CA [...] mesorectal lymph nodes: Absent Johnathan José M.D. IMG MRI PROCEDURES from Last 3 Months Care Teams Data Visualization Developer Relationship Specialty Start Date End Date Elsewhere, Pcp PCP - General Internal Medicine 09/26/21
--- OUTSIDE RECORDS SUMMARY | 2023-11-30 09:41 | XMS_ITS | Encounter Summary ---
Author Organization [facility] Address [address] [place] [address] Care Team Providers Care Reordering Clerk Name Role Phone Elsewhere, Pcp Primary Care Provider Unavailabl e Reason for Referral * Outpatient (Routine) - Closed Specialty Diagnoses / Procedures Referred By Tammy stone Referred To Contact Radiation Oncology Diagnoses Malignant Neoplasm Of Rectum (HCC) Mendy Quintanilla M.D. 200 [place] [address] [facility] Referral ID Status Reason Start Date Expiration Date Visits Re quested Visits Authorized [id number] Closed 10/14/2023 04/14/2025 1 1 Reason for Visit * Outpatient (Routine) - Closed Specialty Diagnoses / Procedures Referred By Tammy stone Referred To Contact Radiation Oncology Diagnoses Malignant Neoplasm Of Rectum (HCC) Mendy Quintanilla M.D. [address] [place] [address] [facility] Referral ID Status Reason Start Date Expiration Date Visits Re quested Visits Authorized [id number] Closed 10/14/2023 04/14/2025 1 1 Encounter Details Date Type Department Care Team (Latest Contact Info) Description 10/15/2023 9:20 AM CDT - 10/15/2023 5:37 PM CDT Hospital Encounter Department of Radiation Oncology in [place], [place] [address] [place] [address] [place] [address] Malignant Neoplasm Of Rectum (HCC) 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 Tobacco Use Types Packs/Day [...] How often do you attend chur or jew services? Never 09/22/2021 Do you belong to any clubs o r organizations such as baptist groups, unions, fraternal or athletic groups, or [...] and heating? Not hard at all 11/22/2022 [facility] - Occupational Stress Questionnaire Answer Date Recorded [...] - Inhaled Oxygen Concentration - - Weight 78 kg (171 lb 15.3 oz) 10/15/2023 9:52 AM CDT Height - - Body Mass Index 27.05 04/26/2023 2:25 PM LENS HARDENER documented in this encounter Medications at Time [...] daily. 07/10/2017 documented as of this encounter Consult Notes * Beto Johnson M.D. - 10/15/2023 10:00 AM CDT Images from the original note were not included. SUBJECTIVE REQUESTING PROVIDER Mendy Quintanilla M.D. REASON FOR CONSULT Stage IV rectal cancer HISTORY OF PRESENT ILLNESS I am asked to evaluate Apolonia William by Mendy Quintanilla M.D. 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 The patient is a 78 y.o. female whoinitially underwent transanal excision of a poorly differentiated rectal adenocarcinoma on 11/19/2022 with incomplete resection. She did have tumor involvement of the left levator plate and post excision MRI scan showed a nodule of tumor on the left levator. The patient also had extensive liver metastases at initial diagnosis. The patient was treated with FOLFIRI and bevacizumab and is currently on maintenance chemotherapy. She has had an excellent response. MRI of the pelvis does not show any residual gross disease in the pelvis. Her liver metastases have responded and there are no new lesions. She appears to be a candidate for surgical resection of her liver disease. Resection of the primary would require abdominal perineal resection and the patient is hoping to avoid this. Oncology History Overview Note Diagnosis: Rectal adenocarcinoma, [...] sitting on. Her PCP recommended fiber. 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 The tumor cells are positive for [...] rectum neoplasm. Immunohistochemical stains were performed at [facility] (block A1). The neoplastic cells are positive for CDX2 and CK7 while negative for CK20. Comparison with prior rectal tumor biopsy ([id number]) was performed, and the present neoplasm displays [...] disease elsewhere in the abdomen or pelvis OBJECTIVE Wt 78 kg BMI 27.05 kg/m?? 0 PHYSICAL EXAM General appearance: alert, appears stated age, and cooperative DIAGNOSTICS MRI scans of the abdomen as well as MRI scans of the pelvis and CT scans of the abdomen and pelvis reviewed at initial diagnosis and at restaging. ASSESSMENT / PLAN #1 Stage IV rectal adenocarcinoma I discussed the situation with the patient and her spouse. She would like to be treated with curative intent therapy but would like to avoid an abdominoperineal resection if possible. If there is a plan to treat her liver metastases surgically it would be reasonable to treat the pelvis with a 5 week course of chemoradiation therapy with concomitant capecitabine followed by a non operative pathwayin regard to the pelvic disease. We discussed the possibility that she would eventually require a colostomy for either failure to control the disease or even potentially for poor bowel function following radiation therapy. If she does not undergo resection of her liver metastases, I would not favor treating the pelvis until the time of local progression. If liver resection is planned we could do chemoradiation therapy after the liver resection or could do it before liver resection which would require her to be off chemotherapy other than capecitabine for 2 months. We discussed all of these possibilities with her. She would like to think about it but at this point is leaning towards proceeding with liver resectionand non operative management of the primary. [facility] We also discussed the alternative of no local therapy and continued chemotherapy or other systemic therapy indefinitely. Our expectation is that if she discontinues chemotherapy without local therapy she will have regrowth in the liver and in the pelvis. Discussed and questions answered. Signed by: Beto Johnson M.D. 10/15/2023 10:41 AM CDT * Breann Hunt M.D. - 10/15/2023 10:00 AM CDT Images from the original note were not included. RADIATION ONCOLOGY CONSULTATION Supervising Wireworker Supervisor: Dr. Johnson Referring Provider: Mendy Quintanilla M.D. Home address: [address] [place] [phone] SUBJECTIVE History of present illness Apolonia William is a 78 y.o. female with stage IV cT4 rectal cancer with liver metastases who presents inconsultation for consideration of radiation treatment. The patient's oncologic history is as follows: Oncology History Overview Note Diagnosis: Rectal adenocarcinoma, [...] sitting on. Her PCP recommended fiber. 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 The tumor cells are positive for [...] rectum neoplasm. Immunohistochemical stains were performed at [facility] (block A1). The neoplastic cells are positive for CDX2 and CK7 while negative for CK20. Comparison with prior rectal tumor biopsy ([id number]) was performed, and the present neoplasm displays [...] disease elsewhere in the abdomen or pelvis In the clinic today, Apolonia William states she is doing well. She is tolerating maintenance chemotherapywith minimal side effects. Past medical history Pertinent past medical history, past surgical history, medications, allergies, social history, and family history were reviewed. Pertinent past medical history includes none. The patient does not have a history of lupus, scleroderma, or ulcerative colitis. The patient has no implanted medical devices. Social history is significant for never smoker. Prior history of radiation None. Review of systems Review of systems as noted in HPI. OBJECTIVE Vitals Weight: 78 kg Physical exam ECO Constitutional: Pleasant, in no acute distress, ambulates without an assistive device. ASSESSMENT / PLAN #1 cT4 adenocarcinoma of the rectum with liver metastases Apolonia William is a 78 y.o. female with rectal adenocarcinoma who is seen in Radiation Oncology for a discussion of radiation treatment. I have reviewed the pertinent history, laboratory, and imaging studies. The patient presented with cT4 disease and liver metastases that has responded well to chemotherapy. She continues on maintenance chemotherapy which she is tolerating well. We discussed that one option would be to continue on ch emotherapy indefinitely. Alternatively, she may have definitive treatment for her liver metastases and rectal primary. The patient is motivated to avoid a colostomy and would like to consider nonoperative management for her primary. We discussed that we are willing to offer this if she also has directed therapy for her liver metastases. Radiation would consist of 5 weeks of treatment to the pelvis with concurrent capecitabine. This may be completed before or after resection of her liver metastases. We discussed the logistics of radiation simulation, planning, and daily treatment. We also reviewedthe acute and late toxicities associated with treatment including fatigue, bowel and bladder irritation, and vaginal stenosis. The patient displayed understanding of the risks and benefits. We will have a multidisciplinary discussion regarding ideal timing and sequence of therapy. The patient expressed interest in receiving radiation in [place]; we will place consultation when appropriate. All questions were answered to the patient's satisfaction. Our departmental contact information wasprovided to the patient who was encouraged to contact the Department of Radiation Oncology with further questions or concerns. Upcoming oncologic appointments and tests Follow up with medical oncology today Breann Hunt M.D. Dr. Johnson is the health care consultant; please see his attestation for details. Associated attestation - Beto Johnson M.D. - 10/15/2023 5:37 PM CDT I was asked to evaluate Apolonia William by Dr. Quintanilla regarding management of stage IV rectal cancer withliver metastases.. I saw and evaluated the patient and participated in the cat portions of the service. I reviewed thedocumentation of Breann Hunt M.D. and agree with the findings and plan. The patient is a 78-year-old female diagnosed with rectal cancer on 11/19/2022. She is mismatch repair intact. She underwent incomplete endoscopic resection and imaging showed residual disease involving the left levator plate. The patient has been treated with chemotherapy and has had a favorable response. There has now no evidence of gross disease in the pelvis and she has no new liver metastases with resolution of some liver metastases. She appears to be a candidate for resection of her remaining liver metastases. Resection of the rectal primary would require abdominal perineal resection given the levator involvement and the involvement of the upper anus. ECO The patient appears well on exam. I discussed the situation with the patient. The patient is hoping to avoid pelvic surgery as she does not want to have a permanent colostomy. We discussed that long-term control of her disease would likely require addition of local measures for both the liver and the rectum. If her liver metastasesare resected it would be reasonable to treat her pelvis with chemoradiation therapy with goal of non operative management. It would still be possible for her to require colostomy for recurrence or poor bowel function. If it is decided not to proceed with resection of her liver disease I would favor continuing systemic therapy and treating the pelvis with radiation for symptomatic local progression. If the liver metastases are to be resected we could treat her prior to resection with chemoradiation therapy directed at the rectal primary or after resection of the liver metastases. Discussed and questions answered. documented in this encounter Plan of Treatment Upcoming Encounters Date Type Department Care Team (Latest Contact Info) Description 12/13/2023 12:30 PM CDT Clinical Communication Virtual Review in [address] [phone] 12/16/2023 7:15 AM CDT Appointment Department of Radiology, [facility], in [address] [phone] Elisabeth Turner M.D. [address] [place] [phone] 12/16/2023 8:20 AM CDT Lab Department of Infusion Therapy in [address] [phone] Elisabeth Turner M.D. [address] [place] [phone] 12/16/2023 9:15 AM CDT Clinical Support Enema Prep Facility in [address] [phone] Mendy Quintanilla M.D. [address] [place] [phone] 12/16/2023 10:30 AM CDT Office Visit Division of Colon and Rectal Surgery in [address] [phone] Mendy Quintanilla M.D. [address] [place] [address] 12/16/2023 10:30 AM CDT Appointment Division of Colon and Rectal Surgery in [place], [place] [address] [place] [address] Mendy Quintanilla M.D. [address] [place] [phone] Discharge Disposition: Home or Self Care 12/16/2023 11:00 AM CDT Office Visit Department of Oncology in [place], [place] [address] [place] [address] Elisabeth Turner M.D. [address] [place] [phone] Scheduled Referrals Name Type Priority Associated Diagnoses Order Schedule Radiation Oncology - GI consult (clinic) Outpatient Referral Routine Malignant Neoplasm Of Rectum (HCC) Once for 1 Occurrences starting 10/15/2023 until 10/15/2023 documented as of this encounter Visit Diagnoses Diagnosis Malignant Neoplasm Of Rectum (HCC) documented in this encounter Care Teams Reordering Clerk Relationship Specialty Start Date End Date Elsewhere, Pcp PCP - General Internal Medicine 09/26/21 documented as of this encounter
--- OUTSIDE RECORDS SUMMARY | 2023-11-30 09:41 | XMS_ITS | Encounter Summary ---
Author Organization [facility] Address [address] [place] [address] Care Team Providers Care Biomed Tech Name Role Phone Elsewhere, Pcp Primary Care Provider Unavailabl e Encounter Details Date Type Department Care Team (Late st Contact Info) Description 10/22/2023 Clinical Communication Division of Colon and Rectal Surgery in [place], [place] [address] [place] [phone] Mendy Quintanilla M.D. [address] [place] [phone] 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 Tobacco Use Types Packs/Day Years [...] often do you attend chur ch or hindu services? Never 09/22/2021 Do you belong to any clubs o r organizations such as samaritan groups, unions, fraternal or athletic groups, or [...] and heating? Not hard at all 11/22/2022 [facility] - [...] PM CDT Clinical Communication Virtual Review in [place], [place] [address] [place] [address] 12/16/2023 7:15 AM CDT Appointment Department of Radiology, [facility], in [place], [place] [address] [place] [phone] Elisabeth Turner M.D. [address] [place] [phone] 12/16/2023 8:20 AM CDT Lab Department of Infusion Therapy in [place], [place] [address] [place] [phone] Elisabeth Turner M.D. [address] [place] [phone] 12/16/2023 9:15 AM CDT Clinical Support Enema Prep Facility in [place], [place] [address] [place] [phone] Mendy Quintanilla M.D. [address] [place] [phone] 12/16/2023 10:30 AM CDT Office Visit Division of Colon and Rectal Surgery in [place], [place] [address] [place] [phone] Mendy Quintanilla M.D. [address] [place] [phone] 12/16/2023 10:30 AM CDT Appointment Division of Colon and Rectal Surgery in [place], [place] [address] [place] [phone] Mendy Quintanilla M.D. [address] [place] [phone] Discharge Disposition: Home or Self Care 12/16/2023 11:00 AM CDT Office Visit Department of Oncology in [place], [place] [address] [place] [phone] Elisabeth Turner M.D. [address] [place] [phone] documented as of this encounter Visit Diagnoses Not on filedocumented in this encounter Care Teams Biomed Tech Relationship Specialty Start Date End Date Elsewhere, Pcp PCP - General Internal Medicine 09/26/21 documented as of this encounter
--- OUTSIDE RECORDS SUMMARY | 2023-11-30 09:41 | XMS_ITS | Encounter Summary ---
Author Organization [facility] Address [address] [place] [address] Care Team Providers Care Inside Sales Advisor Name Role Phone Elsewhere, Pcp Primary Care Provider Unavailabl e Encounter Details Date Type Department Care Team (Late st Contact Info) Description 10/15/2023 Clinical Communication Division of Colon and Rectal Surgery in [place], [place] [address] [place] [phone] Mendy Quintanilla M.D. [address] [place] [phone] 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 Tobacco Use Types Packs/Day Years [...] often do you attend chur ch or cheondoism services? Never 09/22/2021 Do you belong to any clubs o r organizations such as methodist groups, unions, fraternal or athletic groups, or [...] and heating? Not hard at all 11/22/2022 [facility] - [...] your living situation today? I have a [facility] place to live 11/22/2022 Education Answer [...] PM CDT Clinical Communication Virtual Review in [place], [place] [address] [place] [address] 12/16/2023 7:15 AM CDT Appointment Department of Radiology, [facility], in [place], [place] [address] [place] [phone] Elisabeth Turner M.D. [address] [place] [phone] 12/16/2023 8:20 AM CDT Lab Department of Infusion Therapy in [place], [place] [address] [place] [phone] Elisabeth Turner M.D. [address] [place] [phone] 12/16/2023 9:15 AM CDT Clinical Support Enema Prep Facility in [place], [place] [address] [place] [phone] Mendy Quintanilla M.D. [address] [place] [phone] 12/16/2023 10:30 AM CDT Office Visit Division of Colon and Rectal Surgery in [place], [place] [address] [place] [phone] Mendy Quintanilla M.D. [address] [place] [phone] 12/16/2023 10:30 AM CDT Appointment Division of Colon and Rectal Surgery in [place], [place] [address] [place] [phone] Mendy Quintanilla M.D. [address] [place] [phone] Discharge Disposition: Home or Self Care 12/16/2023 11:00 AM CDT Office Visit Department of Oncology in [place], [place] [address] [place] [phone] Elisabeth Turner M.D. [address] [place] [phone] documented as of this encounter Visit Diagnoses Not on filedocumented in this encounter Care Teams Inside Sales Advisor Relationship Specialty Start Date End Date Elsewhere, Pcp PCP - General Internal Medicine 09/26/21 documented as of this encounter
--- OUTSIDE RECORDS SUMMARY | 2023-11-30 09:41 | XMS_ITS ---
Author Organization [facility] Address [address] [place] [address] Care Team Providers Care Foreman/Pile Driving And Erection Name Role Phone Unavailable Unavailable Unavailable Surgery Details Not on file Complications Check Surgery Details section. Procedure Estimated Blood Loss Check Surgery Details section. Procedure Findings Check Surgery Details section. Procedure Specimens Taken Check Surgery Details section.
--- OUTSIDE RECORDS SUMMARY | 2023-11-30 09:41 | XMS_ITS | Encounter Summary ---
Author Organization [facility] Address [address] [place] [address] Care Team Providers Care Delicatessen Goods Stock Clerk Name Role Phone Elsewhere, Pcp Primary Care Provider Unavailabl e Reason for Visit * Reason Onset Date Comments Pre-visit Intake 10/09/2023 Encounter Details Date Type Department Care Team (Latest Contact Info) Description 10/09/2023 2:30 PM CDT Clinical Communication Virtual Review in [place], [place] 200 [place] [address] Pre-visit Intake 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 Tobacco Use Types [...] often do you attend chur ch or zoroastrian services? Never 09/22/2021 Do you belong to any clubs o r organizations such as sikh groups, unions, fraternal [...] and heating? Not hard at all 11/22/2022 [facility] - Occupational [...] your living situation today? I have a [facility] place to live 11/22/2022 Education Answer Date [...] PM CDT Clinical Communication Virtual Review in [place], [place] [address] [place] [phone] 12/16/2023 7:15 AM CDT Appointment Department of Radiology, [facility], in [place], [place] [address] [place] [phone] Elisabeth Turner M.D. [address] [place] [phone] 12/16/2023 8:20 AM CDT Lab Department of Infusion Therapy in [address] [phone] Elisabeth Turner M.D. [address] [place] [phone] 12/16/2023 9:15 AM CDT Clinical Support Enema Prep Facility in [place], [place] [address] [place] [phone] Mendy Quintanilla M.D. [address] [place] [phone] 12/16/2023 10:30 AM CDT Office Visit Division of Colon and Rectal Surgery in [place], [place] [address] [place] [phone] Mendy Quintanilla M.D. [address] [place] [phone] 12/16/2023 10:30 AM CDT Appointment Division of Colon and Rectal Surgery in [place], [place] [address] [place] [phone] Mendy Quintainlla M.D. [address] [place] [phone] Discharge Disposition: Home or Self Care 12/16/2023 11:00 AM CDT Office Visit Department of Oncology in [place], [place] [address] [place] [phone] Elisabeth Turner M.D. [address] [place] [phone] documented as of this encounter Visit Diagnoses Not on filedocumented in this encounter Care Teams Delicatessen Goods Stock Clerk Relationship Specialty Start Date End Date Elsewhere, Pcp PCP - General Internal Medicine 09/26/21 documented as of this encounter
--- OUTSIDE RECORDS SUMMARY | 2023-11-30 09:41 | XMS_ITS | Encounter Summary ---
Author Organization [facility] Address [address] [place] [address] Care Team Providers Care Dining Car Hop Name Role Phone Elsewhere, Pcp Primary Care Provider Unavailabl e Reason for Referral * Outpatient (Routine) - Authorized Specialty Diagnoses / Procedures Referred By Contac t Referred To Contact Diagnoses Malignant Neoplasm Of Rectum (HCC) Procedures Enema Prep Mendy Quintanilla M.D. 200 [place] [address] [facility] Referral ID Status Reason Start Date Expiration Date V isits Requested Visits Authorized [id number] Authorized 10/22/2023 10/21/2024 1 1 * Outpatient (Routine) - Authorized Specialty Diagnoses / Procedures Referred By Contac t Referred To Contact Diagnoses Malignant Neoplasm Of Rectum (HCC) Procedures Flexible Sigmoidoscopy Mendy Quintanilla M.D. 200 [place] [address] [facility] Referral ID Status Reason Start Date Expiration Date V isits Requested Visits Authorized [id number] Authorized 10/22/2023 10/21/2024 1 1 * Outpatient (Routine) - Authorized Specialty Diagnoses / Procedures Referred By Contac t Referred To Contact Colon and Rectal Surgery Mendy Quintanilla M.D. [address] [place] [address] [facility] Referral ID Status Reason Start Date Expiration Date V isits Requested Visits Authorized [id number] Authorized 10/22/2023 04/22/2025 1 1 Scheduling Instructions Yadiel 10:30 flex with Dwight only time that date she can see Encounter Details Date Type Department Care Team (Late st Contact Info) Description 10/22/2023 Orders Only Division of Colon and Rectal Surgery in [place], [place] [address] [place] [address] Mendy Quintanilla M.D. [address] [place] [address] Malignant Neoplasm Of Rectum (HCC) (Primary Dx) [...] often do you attend chur ch or sabianism services? Never 09/22/2021 Do you belong to any clubs o r organizations such as restoration groups, unions, fraternal or athletic groups, or [...] and heating? Not hard at all 11/22/2022 [facility] - [...] your living situation today? I have a [facility] place to live 11/22/2022 Education [...] PM CDT Clinical Communication Virtual Review in [place], [place] 200 [place] [address] 12/16/2023 7:15 AM CDT Appointment Department of Radiology, [facility], in [address] [phone] Elisabeth Turner M.D. [address] [place] [phone] 12/16/2023 8:20 AM CDT Lab Department of Infusion Therapy in [address] [phone] Elisabeth Turner M.D. [address] [place] [phone] 12/16/2023 9:15 AM CDT Clinical Support Enema Prep Facility in [address] [phone] Mendy Quintanilla M.D. [address] [place] [phone] 12/16/2023 10:30 AM CDT Office Visit Division of Colon and Rectal Surgery in [place], [place] [address] [place] [phone] Mendy Quintanilla M.D. [address] [place] [phone] 12/16/2023 10:30 AM CDT Appointment Division of Colon and Rectal Surgery in [place], [place] [address] [place] [phone] Mendy Quintanilla M.D. [address] [place] [phone] Discharge Disposition: Home or Self Care 12/16/2023 11:00 AM CDT Office Visit Department of Oncology in [place], [place] [address] [place] [phone] Elisabeth Turner M.D. [address] [place] [phone] Scheduled Orders Name Type Priority Associated Diagnoses Orde r Schedule Flexible Sigmoidoscopy GI Routine Malignant Neoplasm Of Rectum (HCC) Expected: 12/16/2023, Expires: 01/21/2025 Enema Prep Procedures Routine Malignant Neoplasm Of Rectum (HCC) Expected: 12/16/2023, Expires: 01/21/2025 Scheduled Referrals Name Type Priority Associated Diagnoses Orde r Schedule Colon and Rectal Surgery office visit (clinic) Outpatient Referral Routine Expected: 12/16/2023, Expires: 01/21/2025 documented as of this encounter Visit Diagnoses Diagnosis Malignant Neoplasm Of Rectum (HCC)- Primary documented in this encounter Care Teams Dining Car Hop Relationship Specialty Start Date End Date Elsewhere, Pcp PCP - General Internal Medicine 09/26/21 documented as of this encounter
--- OUTSIDE RECORDS SUMMARY | 2023-11-30 09:41 | XMS_ITS | Encounter Summary ---
Author Organization [facility] Address [address] [place] [address] Care Team Providers Care Director Private Music Therapy Agency Name Role Phone Elsewhere, Pcp Primary Care Provider Unavailabl e Reason for Referral * Outpatient (Routine) - Closed Specialty Diagnoses / Procedures Referred By Tammy stone Referred To Contact Radiation Oncology Diagnoses Malignant Neoplasm Of Rectum (HCC) Mendy Quintanilla M.D. 200 [place] [address] [facility] Referral ID Status Reason Start Date Expiration Date Visits Re quested Visits Authorized [id number] Closed 10/14/2023 04/14/2025 1 1 Encounter Details Date Type Department Care Team (Late st Contact Info) Description 10/14/2023 Orders Only Division of Colon and Rectal Surgery in [place], [place] [address] [place] [address] Shena Fry, R.N. Malignant Neoplasm Of Rectum (HCC) (Primary [...] How often do you attend chur or roman catholic services? Never 09/22/2021 Do you belong to any clubs o r organizations such as temple groups, unions, fraternal or athletic groups, or [...] and heating? Not hard at all 11/22/2022 [facility] Occupat ional Health - Occupational Stress [...] your living situation today? I have a [facility] place to live 11/22/2022 Education Answer [...] PM CDT Clinical Communication Virtual Review in [place], [place] 200 [place] [address] 12/16/2023 7:15 AM CDT Appointment Department of Radiology, [facility], in [place], [place] [address] [place] [address] Elisabeth Turner M.D. [address] [place] [phone] 12/16/2023 8:20 AM CDT Lab Department of Infusion Therapy in [place], [place] [address] [place] [phone] Elisabeth Turner M.D. [address] [place] [phone] 12/16/2023 9:15 AM CDT Clinical Support Enema Prep Facility in [place], [place] [address] [place] [phone] Mendy Quintanilla M.D. [address] [place] [phone] 12/16/2023 10:30 AM CDT Office Visit Division of Colon and Rectal Surgery in [place], [place] [address] [place] [phone] Mendy Quintanilla M.D. [address] [place] [phone] 12/16/2023 10:30 AM CDT Appointment Division of Colon and Rectal Surgery in [address] [phone] Mendy Quintanilla M.D. [address] [place] [phone] Discharge Disposition: Home or Self Care 12/16/2023 11:00 AM CDT Office Visit Department of Oncology in [place], [place] [address] [place] [phone] Elisabeth Turner M.D. [address] [place] [phone] Scheduled Referrals Name Type Priority Associated Diagnoses Orde r Schedule Radiation Oncology - GI consult (clinic) Outpatient Referral Routine Malignant Neoplasm Of Rectum (HCC) Expected: 10/14/2023, Expires: 01/13/2025 documented as of this encounter Visit Diagnoses Diagnosis Malignant Neoplasm Of Rectum (HCC)- Primary documented in this encounter Care Teams Director Private Music Therapy Agency Relationship Specialty Start Date End Date Elsewhere, Pcp PCP - General Internal Medicine 09/26/21 documented as of this encounter
--- OUTSIDE RECORDS SUMMARY | 2023-11-30 09:41 | XMS_ITS | Referral Summary ---
Author Organization [facility] Address [address] [place] [address] Care Team Providers Care Insurance Sales Associate Name Role Phone Elsewhere, Pcp Primary Care Provider Unavailabl e Source Comments Patient records contain information from all sites at [facility]. For routine questions regarding patient records, call [phone] during business hours, M-F 8:00 AM - 5:00 PM Central Time. Record requests for emergency care only can be directed to [phone] at any time.[facility] Encounters Date Type Department Care Team Description 11/04/2023 10:30 AM CDT Comprehensive Visit Division of Hepatobiliary and Pancreas Surgery in [place], [place] [address] [place] [phone] Karlene Noble M.D. Malignant Neoplasm Of Rectum (HCC); Secondary Malignant Neoplasm Liver (HCC) 10/22/2023 Orders Only Division of Colon and Rectal Surgery in [place], [place] [address] [place] [phone] Mendy Quintanilla M.D. Malignant Neoplasm Of Rectum (HCC) (Primary Dx) 10/22/2023 Clinical Communication Division of Colon and Rectal Surgery in [place], [place] [address] [place] [phone] Mendy Quintanilla M.D. 10/15/2023 Clinical Communication Division of Colon and Rectal Surgery in [place], [place] [address] [place] [phone] Mendy Quintanilla M.D. 10/15/2023 9:20 AM CDT - 10/15/2023 5:37 PM CDT Hospital Encounter Department of Radiation Oncology in [address] [phone] Beto Johnson M.D. Malignant Neoplasm Of Rectum (HCC) 10/15/2023 8:20 AM CDT Lab Department of Infusion Therapy in [address] [phone] Johnathan José M.D. Malignant Neoplasm Of Rectum (HCC) (Primary Dx); Secondary Malignant Neoplasm Liver (HCC) 10/15/2023 2:00 PM CDT Office Visit Department of Oncology in [address] [phone] Elisabeth Turner M.D. Malignant Neoplasm Of Rectum (HCC) (Primary Dx); Secondary Malignant Neoplasm Liver (HCC) 10/14/2023 Orders Only Division of Colon and Rectal Surgery in [address] [phone] Shena Fry, Constantino Malignant Neoplasm Of Rectum (HCC) (Primary Dx) 10/14/2023 1:30 PM CDT Telemedicine Division of Colon and Rectal Surgery in [address] [phone] Mendy Quintanilla M.D. Malignant Neoplasm Of Rectum (HCC) (Primary Dx); Secondary Malignant Neoplasm Liver (HCC); Neuropathy; Immunodeficiency Due To Drugs (HCC) 10/09/2023 2:30 PM CDT Clinical Communication Virtual Review in [address] [phone] Pre-visit Intake 09/25/2023 Patient Outreach Department of Oncology in [address] [phone] Dayan Garber M.SShruthi., R.N. 09/18/2023 Clinical Communication Department of Oncology in [address] [phone] Johnathan José M.D. 09/18/2023 Orders Only Department of Oncology in [place], [place] [address] [place] [phone] Johnathan José M.D. Malignant Neoplasm Of Rectum (HCC) (Primary Dx); Secondary Malignant Neoplasm Liver (HCC) 09/17/2023 10:30 AM CDT Comprehensive Visit Division of Hepatobiliary and Pancreas Surgery in [place], [place] [address] [place] [phone] Mahad Harrell M.D., Ph.D. Malignant Neoplasm Of Rectum (HCC); Secondary Malignant Neoplasm Liver (HCC) 09/12/2023 6:22 AM CDT - 09/12/2023 11:59 PM CDT Hospital Encounter Department of Radiology, [facility], in [place], [place] [address] [place] [phone] Johnathan José M.D. Malignant Neoplasm Of Rectum (HCC) Discharge Disposition: Home or Self Care 09/06/2023 7:14 AM CDT - 09/06/2023 11:59 PM CDT Hospital Encounter Department of Radiology, [facility], in [place], [place] [address] [place] [phone] Johnathan José M.D. Malignant Neoplasm Of Rectum (HCC) Discharge Disposition: Home or Self Care 09/05/2023 12:45 PM CDT Clinical Communication Virtual Review in [place], [place] 200 [place] [address] from Last 3 Months Allergies Active Allergy [...] Date Secondary Malignant Neoplasm Liver 12/12/2022 Other Rotary Cutter Feeder Current Drug Therapy 12/12/2022 Hypertension Essential Primary [...] week 09/22/2021 How often do you attend [facility] or anabaptism services? Never 09/22/2021 Do you belong to any clubs o r organizations such as voodoo groups, unions, fraternal or athletic groups, or [...] and heating? Not hard at all 11/22/2022 [facility] - Occupational Stress Questionnaire Answer Date [...] your living situation today? I have a [facility] place to live 11/22/2022 Education Answer [...] PM CDT Clinical Communication Virtual Review in [address] [phone] 12/16/2023 7:15 AM CDT Appointment Department of Radiology, [facility], in [address] [phone] Elisabeth Turnre M.D. [address] [place] [phone] 12/16/2023 8:20 AM CDT Lab Department of Infusion Therapy in [address] [phone] Elisabeth Turner M.D. [address] [place] [phone] 12/16/2023 9:15 AM CDT Clinical Support Enema Prep Facility in [address] [phone] Mendy Quintanilla M.D. [address] [place] [phone] 12/16/2023 10:30 AM CDT Office Visit Division of Colon and Rectal Surgery in [place], [place] [address] [place] [phone] Mendy Quintanilla M.D. [address] [place] [phone] 12/16/2023 10:30 AM CDT Appointment Division of Colon and Rectal Surgery in [place], [place] [address] [place] [phone] Mendy Quintanilla M.D. [address] [place] [phone] Discharge Disposition: Home or Self Care 12/16/2023 11:00 AM CDT Office Visit Department of Oncology in [address] [phone] Elisabeth Turner M.D. [address] [place] [phone] Medical Devices Implanted Type Area Carpet Installation Specialist Device Identifier Shelf Expiration Date Model / Serial / Lot Hardware E.G. Pins/Screws/R ods Hardware e.g. pins/screws/clayton s Right: Wrist Description:Titanium plate Prt Cath Infus Mri Intrmd 8f - [id number] Implanted:Qty : 1 on 12/17/2022 by Alfie Merino M.D. at [facility]/[employer] 05/29/2024 [id number] / / [id number] Procedures Procedure Name Priority Date/Time Associated Diagnosis [...] with Differential, Blood (10/15/2023 8:15 AM CDT) Pathologist [facility] Hemoglobin 14.1 11.6 - 15.0 g/dL 10/15/2023 [...] CDT Johnathan José M.D. LAB BLOOD ADD-ON Performing Organization Address City/[facility] Co de Phone Number [facility] 200 [place] [address], [facility] DTL [facility] 200 [place] [address] DHPM [facility] 200 [place] [address] * (ABNORMAL) CEA (Carcinoembryonic Antigen) (10/15/2023 8:15 AM CDT) Carcinoembryonic Ag (CEA), S 9.4(H) ng/mL 10/15/2023 2:55 PM CDT [facility] Comment: ----REFERENCE VALUE---- <=3.0 (Non-smokers) Some smokers may have elevated CEA, usually <5.0. ----ADDITIONAL INFORMATION---- The testing method is an immunoenzymatic assay manufactured by [employer] and performed on the [employer] DxI 800. ? Values obtained with different assay methods or kits may be different and cannot be used interchangeably. ? Test results cannot be interpreted as absolute evidence for the presence or absence of malignant disease. Blood (Blood, Venous) 10/15/2023 8:15 AM CDT 10/15/2023 1:48 PM CDT Johnathan José M.D. LAB BLOOD ADD-ON Performing Organization Address City/[facility]/ZIP Co de Phone Number [facility] [address] [place] [address] [facility] [address] [place] [address] * (ABNORMAL) Comprehensive Metabolic Panel (10/15/2023 8:15 AM CDT) [facility] Potassium, S 4.5 3.6 - 5.2 mmol/L [...] CDT Johnathan José M.D. LAB BLOOD ADD-ON [facility] [address] [place] [address], [facility] DTL [facility] [address] [place] [address] * MR Abdomen without and with IV [...] PROCEDURES from Last 3 Months Care Teams Insurance Sales Associate Relationship Specialty Start Date End Date Elsewhere, Pcp PCP - General Internal Medicine 09/26/21
--- OUTSIDE RECORDS SUMMARY | 2023-11-30 09:41 | XMS_ITS | Encounter Summary ---
Author Organization [facility] Address [address] [place] [address] Care Team Providers Care Music Typographer Name Role Phone Elsewhere, Pcp Primary Care Provider Unavailabl e Reason for Visit * Outpatient (Routine) - Closed Specialty Diagnoses / Procedures Referred By Tammy stone Referred To Contact Colon and Rectal Surgery Diagnoses Malignant Neoplasm Of Rectum (HCC) Secondary Malignant Neoplasm Liver (HCC) Johnathan José M.D. [address] [place] [phone] [facility] Referral ID Status Reason Start Date Expiration Date Visits Re quested Visits Authorized [id number] Closed 09/18/2023 03/19/2025 1 1 Encounter Details Date Type Department Care Team (Late st Contact Info) Description 10/14/2023 1:30 PM CDT Telemedicine Division of Colon and Rectal Surgery in [place], [place] [address] [place] [phone] Mendy Quintanilla M.D. [address] [place] [phone] Malignant Neoplasm Of Rectum (HCC) (Primary Dx); Secondary Malignant Neoplasm Liver (HCC); Neuropathy; Immunodeficiency Due To Drugs (HCC) 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 Tobacco Use Types Packs/Day [...] How often do you attend [facility] or gnosticism services? Never 09/22/2021 Do you belong to any clubs o r organizations such as rastafarian groups, unions, fraternal or athletic groups, or [...] and heating? Not hard at all 11/22/2022 [facility] [place] of Occupat ional Health - Occupational Stress [...] as of this encounter Consult Notes * Mendy Quintanilla M.D. - 10/14/2023 1:30 PM CDT SUBJECTIVE CHIEF COMPLAINT / REASON FOR VISIT Apolonia William is a 78 y.o. female presenting in referral from Johnathan José M.D. for consultation in theevaluation of rectal cancer with liver metastases.. HISTORY OF PRESENT ILLNESS Ms. William and Ray met for the first time back in November of last year when she had a locally advanced rectal cancer with liver metastases. She had had a transanal excision with only a partial removal of the tumor. The tumor was a T4b N0 positive tumor with involvement of the top of the sphincter as well as the left levator plate on post transanal excision MRI. At the same time, she was diagnosed with significant liver metastases. The focus of the time was two used chemotherapy to treat the liverand pinned any conversation about the primary in the rectum. We talked early about the need for an APR if she does need surgical planning for the rectal primary. She was quite adamant that she did not wish to entertain an APR, so we talked about the possibility of a nonoperative approach if she became a candidate with a clinical complete response after chemotherapy and long course radiation therapy. Since I last saw her, she has had an excellent response to chemotherapy. MRI showed no residual tumor in the pelvis and her liver disease has improved substantially. The liver surgeons have suggestedthat she may be a candidate for a synchronous resection with a combination of ablations and wedges in the liver and an APR from us. She continues to receive chemotherapy. She tells me she has received three cycles and has a fourth cycle plan for next week. OBJECTIVE I reviewed the most recent MRI of her pelvis from September 05. This shows a complete or near complete clinical response in the rectum. She also had a great response in the liver as evidenced by CT scan of the abdomen and pelvis. PHYSICAL EXAM Physical Exam Video consult ASSESSMENT / PLAN #1 Malignant Neoplasm Of Rectum (HCC) We had a long conversation about management of the rectal primary. Initially, our focus was on the liver, but if the liver is now become surgically resectable, then we need to make a plan for the primary tumor. As was the case from the beginning, any surgical resection of the primary will require an APR. She had intra anal disease with aborting the transanal excision at the time of her original diagnosis and she also had a T4b tumor based on left levator plate involvement and abutment of the upper portionof her sphincter. If we were going to operate, we would need to operate based on the original tumor location and this would require an APR. She asked about a nonoperative approach. I explained to her that she is only received chemotherapy today and we would generally not encourage or offer a watch and wait/nonoperative management strategy with only chemotherapy. The high likelihood is that any gained response would be lost over time when the chemotherapy was withdrawn. Additionally, she has not had digital rectal exam or flexible sigmoidoscopy to confirm indeed this she does have a complete clinical response. I think the next best step is for her to meet with our radiation oncology team to discuss the addition of radiation treatment. It will also be important for a liver team to weigh in about whether they would be willing to proceed with aggressive liver surgery in the absence of removal of the primaryif she were to have a confirmed clinical complete response after total neoadjuvant therapy. If she is a candidate for radiation and if she has a complete clinical response after completion ofradiation, then I would be willing to monitor her with a watch and wait protocol assuming that the liver surgeons are comfortable with this plan. She will be seeing Medical Oncology tomorrow and can discuss this further and we will place a radiation oncology consult today. #2 Secondary Malignant Neoplasm Liver (HCC) See notes from Dr. 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 [address] [place] [phone] 12/16/2023 8:20 AM CDT Lab Department of Infusion Therapy in [address] [phone] Elisabeth Turner M.D. [address] [place] [phone] 12/16/2023 9:15 AM CDT Clinical Support Enema Prep Facility in [place], [place] [address] [place] [phone] Mendy Quintanilla M.D. [address] [place] [phone] 12/16/2023 10:30 AM CDT Office Visit Division of Colon and Rectal Surgery in [place], [place] [address] [place] [phone] Mendy Quintanilla M.D. [address] [place] [phone] 12/16/2023 10:30 AM CDT Appointment Division of Colon and Rectal Surgery in [place], [place] [address] [place] [phone] Mendy Quintanilla M.D. [address] [place] [phone] Discharge Disposition: Home or Self Care 12/16/2023 11:00 AM CDT Office Visit Department of Oncology in [place], [place] [address] [place] [phone] Elisabeth Turner M.D. [address] [place] [phone] documented as of this encounter Visit Diagnoses Diagnosis Malignant Neoplasm Of Rectum (HCC)- Primary Secondary Malignant Neoplasm Liver (HCC) Neuropathy Immunodeficiency Due To Drugs (HCC) documented in this encounter Care Teams Music Typographer Relationship Specialty Start Date End Date Elsewhere, Pcp PCP - General Internal Medicine 09/26/21 documented as of this encounter
--- OUTSIDE RECORDS SUMMARY | 2023-11-30 09:41 | XMS_ITS | Encounter Summary ---
Author Organization [facility] Address [address] [place] [id number] Care Team Providers Care Station Baggage Porter Name Role Phone Elsewhere, Pcp Primary Care Provider Unavailabl e Reason for Visit * Outpatient (Routine) - Closed Specialty Diagnoses / Procedures Referred By Tammy stone Referred To Contact General Surgery Diagnoses Malignant Neoplasm Of Rectum (HCC) Secondary Malignant Neoplasm Liver (HCC) Johnathan José M.D. [address] [place] [phone] [facility] Referral ID Status Reason Start Date Expiration Date Visits Re quested Visits Authorized [id number] Closed 09/18/2023 03/19/2025 1 1 Encounter Details Date Type Department Care Team (Latest Contact Info) Description 11/04/2023 10:30 AM CDT Comprehensive Visit Division of Hepatobiliary and Pancreas Surgery in [place], [place] [address] [place] [phone] Karlene Noble M.D. [address] [place] [phone] Malignant Neoplasm Of Rectum (HCC); Secondary Malignant [...] week 09/22/2021 How often do you attend [facility] or sabianism services? Never 09/22/2021 Do you belong to any clubs o r organizations such as sikhism groups, unions, fraternal or athletic groups, or [...] and heating? Not hard at all 11/22/2022 [facility] [place] [facility] - Occupational Stress [...] - Inhaled Oxygen Concentration - - Weight 79.2 kg (174 lb 9.7 oz) 11/04/2023 10:22 AM CDT Height 171.1 cm (5' 7.36) 11/04/2023 10:22 AM C DT Body Mass Index 27.05 11/04/2023 10:22 AM CDT documented in this encounter Consult Notes * Karlene Noble M.D. - 11/04/2023 10:30 AM CDT Reason for Visit: CRLM HPI: 78yoF with rectal cancer metastatic to liver Has been seen by Dr. Harrell several times and has also been seen by Dr. Quintanilla of Colorectal surgery. At present is not planning to pursue operative intervention but instead is planning to pursuetotal neoadjuvant therapy for her rectum. Presents today to discuss the potential for hepatic arterial infusion pump chemotherapy. Objective: General: awake, alert, oriented x3, no acute distress HEENT: sclera anicteric; normocephalic, atraumatic Neck: No cervical or supraclavicular lymphadenopathy Pulm: Respiratory effort unlabored Psychiatric: Appears competent to give informed consent Neurologic: No gross deficits Skin: No rashes or subcutaneous nodules Labs/Radiology: Reviewed MRI from presentation as well as most recent MRI from August which demonstrated greater than25 metastases at the outset. Many of them have disappeared on recent imaging. While the remaining visible lesions are predominantly right-sided they are also all mostly superficial and would likely be amenable to multiple wedge resections. Hemoglobin A1c 5.8 CEA as of October 14 was 9.4 while she has been on maintenance; it had been 2.7 while on treatment; was 32 at diagnosis Discussion: Reviewed that given the volume of lesions at presentation that if we are thinking of her cancer in a vacuum the most aggressive approach would be an adjuvant hepatic arterial infusion pump chemo. This is only appropriate in the setting of complete eradication of the primary such that no additional systemic therapy would be warranted. Patient has continued to center quality of life over quantity of life and is very reticent to pursue any surgical intervention. We reviewed that the only circumstances under which hepatic arterial infusion pump chemotherapy would be warranted is if we had documented complete response in the rectum and were wishing to be maximally aggressive against the liver. At present, since she is reticent to undertake any form of surgical intervention it does not seem congruent with her wishes and priorities to journey to [place] every 2 weeks for hepatic arterial infusion pump chemotherapy if and when it which would become clinically relevant. Assessment: Liver metastases from rectal cancer having responded well to treatment Plan: -proceed with total neoadjuvant therapy to the rectum. If rectal complete response is established, could consider surgical intervention to liver at discretion of patient and Dr. Harrell if alignedwith pt wishes. Patient not interested in pursuit of HAIP but voices gratitude for discussion today. -f/u as needed HPB surgery 30 minutes spent in this encounter, including [id number] time, care coordination, and same-day documentation and/or imaging review documented in this encounter Plan of Treatment Upcoming Encounters Date Type Department Care Team (Latest Contact Info) Description 12/13/2023 12:30 PM CDT Clinical Communication Virtual Review in [address] [phone] 12/16/2023 7:15 AM CDT Appointment Department of Radiology, [facility], in [address] [phone] Elisabeth Turner M.D. [address] [place] [phone] 12/16/2023 8:20 AM CDT Lab Department of Infusion Therapy in [address] [phone] Elisabeth Turner M.D. [address] [place] [phone] 12/16/2023 9:15 AM CDT Clinical Support Enema Prep Facility in [address] [phone] Mendy Quintanilla M.D. [address] [place] [phone] 12/16/2023 10:30 AM CDT Office Visit Division of Colon and Rectal Surgery in [address] [phone] Mendy Quintanilla M.D. [address] [place] [phone] 12/16/2023 10:30 AM CDT Appointment Division of Colon and Rectal Surgery in [place], [place] [address] [place] [phone] Mendy Quintanilla M.D. [address] [place] [phone] Discharge Disposition: Home or Self Care 12/16/2023 11:00 AM CDT Office Visit Department of Oncology in [place], [place] [address] [place] [phone] Elisabeth Turner M.D. [address] [place] [phone] documented as of this encounter Visit Diagnoses Diagnosis Malignant Neoplasm Of Rectum (HCC) Secondary Malignant Neoplasm Liver (HCC) documented in this encounter Care Teams Station Baggage Porter Relationship Specialty Start Date End Date Elsewhere, Pcp PCP - General Internal Medicine 09/26/21 documented as of this encounter
--- OUTSIDE RECORDS SUMMARY | 2023-11-30 09:41 | XMS_ITS | Encounter Summary ---
Author Organization [facility] Address [address] [place] [phone] Care Team Providers Care Manager Port Name Role Phone Elsewhere, Pcp Primary Care Provider Unavailabl e Encounter Details Date Type Department Care Team (Late st Contact Info) Description 10/15/2023 8:20 AM CDT Lab Department of Infusion Therapy in [place], [place] [address] [place] [phone] Johnathan José M.D. [address] [place] [phone] Malignant Neoplasm Of Rectum (HCC) (Primary Dx); [...] How often do you attend chur or sabianism services? Never 09/22/2021 Do you [...] and heating? Not hard at all 11/22/2022 [facility] - Occupational Stress Questionnaire Answer Date [...] your living situation today? I have a [facility] place to live 11/22/2022 Education Answer [...] PM CDT Clinical Communication Virtual Review in [place], [place] 200 [place] [phone] 12/16/2023 7:15 AM CDT Appointment Department of Radiology, [facility], in [place], [place] [address] [place] [phone] Elisabeth Turner M.D. [address] [place] [phone] 12/16/2023 8:20 AM CDT Lab Department of Infusion Therapy in [place], [place] [address] [place] [phone] Elisabeth Turner M.D. [address] [place] [phone] 12/16/2023 9:15 AM CDT Clinical Support Enema Prep Facility in [place], [place] [address] [place] [phone] Mendy Quintanilla M.D. [address] [place] [phone] 12/16/2023 10:30 AM CDT Office Visit Division of Colon and Rectal Surgery in [place], [place] [address] [place] [phone] Mendy Quintanilla M.D. [address] [place] [phone] 12/16/2023 10:30 AM CDT Appointment Division of Colon and Rectal Surgery in [place], [place] [address] [place] [phone] Mendy Quintanilla M.D. [address] [place] [phone] Discharge Disposition: Home or Self Care 12/16/2023 11:00 AM CDT Office Visit Department of Oncology in [place], [place] [address] [place] [phone] Elisabeth Turner M.D. [address] [place] [phone] documented as of this encounter Procedures Procedure Name Priority Date/Time Associated Diagnosis Comments CBC WITH DIFFERENTIAL, B Routine 024 8:15 AM CDT Malignant Neoplasm Of Rectum (HCC) Secondary Malignant Neoplasm Liver (HCC) CARCINOEMBRYONIC AG (CEA), S Routine 10/15/2023 8:15 AM CDT Malignant Neoplasm Of Rectum (HCC) Secondary Malignant Neoplasm Liver (HCC) COMPREHENSIVE METABOLIC PANEL, S/P Routine 10/15/2023 8:15 AM CDT Malignant Neoplasm Of Rectum (HCC) Secondary Malignant Neoplasm Liver (HCC) documented in this encounter Results * (ABNORMAL) CBC with Differential, Blood [...] M.D. LAB BLOOD ADD-ON Performing Organization Address City/[facility]/ZIP Co de Phone Number [facility] [address] [place] [address], [facility] DTL [facility] [address] [place] [address] DHPM [facility] [address] [place] [address] * (ABNORMAL) CEA (Carcinoembryonic Antigen) (10/15/2023 8:15 AM CDT) Pathologist [facility] Carcinoembryonic Ag (CEA), S 9.4(H) ng/mL 10/15/2023 2:55 PM CDT [facility] Comment: ----REFERENCE VALUE---- <=3.0 (Non-smokers) Some smokers may have elevated CEA, usually <5.0. ----ADDITIONAL INFORMATION---- The testing method is an immunoenzymatic assay manufactured by [employer]. and performed on the Synter[employer]I 800. ? Values obtained with different assay methods or kits may be different and cannot be used interchangeably. ? Test results cannot be interpreted as absolute evidence for the presence or absence of malignant disease. Blood (Blood, Venous) 10/15/2023 8:15 AM CDT 10/15/2023 1:48 PM CDT Johnathan José M.D. LAB BLOOD ADD-ON Performing Organization Address City/[facility]/ZIP Co de Phone Number [facility] [address] [place] [address] [facility] [address] [place] [address] * (ABNORMAL) Comprehensive Metabolic Panel (10/15/2023 8:15 [...] CDT Johnathan José M.D. LAB BLOOD ADD-ON [facility] [address] [place] [address], [place] [facility] [address] [place] [address] documented in this encounter Visit Diagnoses Diagnosis Malignant Neoplasm Of Rectum (HCC)- Primary Secondary Malignant Neoplasm Liver (HCC) documented in this encounter Administered Medications Inactive Administered Medications - up to 3 most recent administrations Medication Order MAR Action Action Date Dose Rate Site heparin flush 500 Units 500 Units, intra-catheter, As needed, line care, Starting on Sat10/15/23 at 0803, When IVAD accessed and not infusing: When no infusion to maintain patency flush every 7 days following NaCL flush. 5 mL (500 units) of Heparin 100 units/mL to each port/lumen. When IVAD not accessed or infusing: When no infusion to maintain patency flush every 28 days following NaCL flush. 5 mL (500 units) of Heparin 100 units/mL to each port/lumen. Given 10/15/2023 8:17 AM CDT 500 Units sodium chloride 0.9 % injection 20-40 mL 20-40 mL, intra-catheter, As needed, line care, Starting on Sat10/15/23 at 0803, When IVAD accessed and infusing: Flush prior to blood sampling, post blood transfusion or post blood sampling. 20 mL to each port/lumen. Given 10/15/2023 8:17 AM CDT 40 mL documented in this encounter Care Teams Manager Port Relationship Specialty Start Date End Date Elsewhere, Pcp PCP - General Internal Medicine 09/26/21 documented as of this encounter
--- OUTSIDE RECORDS SUMMARY | 2023-11-30 09:41 | XMS_ITS ---
Author Organization [facility] Address [address] [place] [address] Care Team Providers Care Gas Torch Brazier Name Role Phone Elsewhere, Pcp Primary Care Provider Unavailabl e Active Problems Problem Noted Date Diagnosed Date Secondary Malignant Neoplasm Liver 12/12/2022 Other Hospital Wellness Coordinator Current Drug Therapy 12/12/2022 Hypertension Essential Primary 12/06/2022 Malignant Neoplasm Of Rectum 12/06/2022 Obesity Unspecified 12/06/2022 Mass Hepatic 12/06/2022 Polyneuropathy 06/27/2021 Paresthesia 09/28/2020 Current Oncology Plans FOLFIRI + Bevacizumab ( Fluorouracil / Leucovorin / Irinotecan / Bevacizumab )* Plan Start Date:12/24/2022 Plan Provider:Johnathan José M.D. Linked Problems Secondary Malignant Neoplasm Liver (HCC)Malignant Neoplasm Of Rectum (HCC) Treatment Medications Current Day (Day 1 , Cycle 1 - Planned for 12/25/2022) Next Day (Day 1, Cycle 2 - Planned for 01/08/2023) bevacizumab-bvzr (Zirabev)fluorouraciL (AdruciL)irinotecan (Camptosar) bevacizumab-bvzr 400 mg in NaCl 0.9% 116 mL IVPB (ZIRABEV)fluorouraciL 5,000 mg in NaCl 0.9% 102 mL IVPB (ADRUCIL)fluorouraciL injection 800 mg (ADRUCIL)irinotecan 380 mg in NaCl 0.9% 519 mL IVPB (CAMPTOSAR) BEVACIZUMAB-BVZR ORDERABLE (ADULT)FLUOROURACIL CHEMO INJECTION ORDERABLE (ADULT)FLUOROURACIL INFUSION CHEMO ORDERABLE - HOME USE (ADULT)IRINOTECAN CHEMO ORDERABLE IN NACL 0.9 % 500 ML (ADULT) Vascular Access Patency - Implanted Vascular Access [...] treatments are documented for this patient in [facility]. Treatments may have been administered in another system. Lifetime Dose Tracking * Chemical Lifetime Dose Automatic Entry Manual Entr y Radiation 5 mGy 5 mGy 0 mGy Fluoro Time 1 minutes 1 minutes 0 minutes DAP (uGy-m2) 131.48 uGy-m2 131.48 uGy-m2 0 uGy-m2
--- OUTSIDE RECORDS SUMMARY | 2023-11-30 09:41 | XMS_ITS | Encounter Summary ---
Author Organization [facility] Address [address] [place] [address] Care Team Providers Care Swing Tender Name Role Phone Elsewhere, Pcp Primary Care Provider Unavailabl e Reason for Referral * Outpatient (Routine) - Authorized Specialty Diagnoses / Procedures Referred By Contac t Referred To Contact Oncology Elisabeth Turner M.D. [address] [place] [address] [facility] Referral ID Status Reason Start Date Expiration Date V isits Requested Visits Authorized [id number] Authorized 10/15/2023 04/15/2025 1 1 * MRI/CAT/PET Scan (Routine) - Authorized Specialty Diagnoses / Procedures Referred By Contac t Referred To Contact Radiology Diagnoses Malignant Neoplasm Of Rectum (HCC) Secondary Malignant Neoplasm Liver (HCC) Procedures CT Chest without IV Contrast Elisabeth Turner M.D. [address] [place] [address] [facility] Referral ID Status Reason Start Date Expiration Date V isits Requested Visits Authorized [id number] Authorized 10/15/2023 10/14/2024 1 1 * MRI/CAT/PET Scan (Routine) - Authorized Specialty Diagnoses / Procedures Referred By Contac t Referred To Contact Radiology Diagnoses Malignant Neoplasm Of Rectum (HCC) Secondary Malignant Neoplasm Liver (HCC) Procedures CT Abdomen Pelvis with IV Contrast Elisabeth Turner M.D. [address] [place] [phone] [facility] Referral ID Status Reason Start Date Expiration Date V isits Requested Visits Authorized [id number] Authorized 10/15/2023 10/14/2024 1 1 Reason for Visit * Outpatient (Routine) - Closed Specialty Diagnoses / Procedures Referred By Tammy stone Referred To Contact Oncology Johnathan José M.D. [address] [place] [phone] [facility] Referral ID Status Reason Start Date Expiration Date Visits Re quested Visits Authorized [id number] Closed 09/18/2023 03/19/2025 1 1 Encounter Details Date Type Department Care Team (Late st Contact Info) Description 10/15/2023 2:00 PM CDT Office Visit Department of Oncology in [place], [place] [address] [place] [phone] Elisabeth Turner M.D. [address] [place] [phone] Malignant Neoplasm Of Rectum (HCC) (Primary Dx); [...] often do you attend chur ch or anabaptism services? Never 09/22/2021 Do you belong to any clubs o r organizations such as faith groups, unions, fraternal or athletic groups, or [...] heating? Not hard at all 11/22/2022 [facility] of Occupat ional Health - [...] your living situation today? I have a [facility] place to live 11/22/2022 Education Answer [...] Weight 79.2 kg (174 lb 9.7 oz) 10/15/2023 1:51 P M CDT Height 169.8 cm (5' 6.85) 10/15/2023 1:51 PM CD T Body Mass Index 27.47 10/15/2023 1:51 PM CDT documented in this encounter Progress Notes * Elisabeth Turner M.D. - 10/15/2023 2:00 PM CDT Images from the original note were not included. SUBJECTIVE Cancer Staging No matching staging information was found for the patient. Current Therapy: Local maintenance 5FU/Pamela [FOLFIRI + Bevacizumab ( Fluorouracil / Leucovorin / Irinotecan / Bevacizumab ) ] Current Disease Status: Responding ECOG Performance Status: 1 Intent of Therapy: Maintenance Intent to Change Therapy: No PRIMARY CARE PHYSICIAN ELSEWHERE, PCP No care steam station supervisor to display LOCAL ONCOLOGIST No care steam station supervisor to display PRIMARY NACHES ONCOLOGIST Ileana Menchaca M.D. Jin, Zhaohui, M.D. CHIEF COMPLAINT / REASON FOR VISIT Apolonia William is a 78 y.o. 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 Her PCP recommended fiber. Her ammunition supervisor did a pelvis exam which was normal, [...] at the referring institution and reviewed at [facility] in [place], [place]. The tumor cells are positive for [...] rectum neoplasm. Immunohistochemical stains were performed at [facility] (block A1). The neoplastic cells are positive for CDX2 and CK7 while negative for CK20. Comparison with prior rectal tumor biopsy ([id number]) was performed, and the present neoplasm displays [...] disease elsewhere in the abdomen or pelvis ONC General HPI On maintenance 5FU/Pamela. 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 REVIEW OF SYSTEMS All other systems reviewed and are negative. OBJECTIVE BP 145/82 (BP Location: Right arm, Patient Position: Sitting, Cuff Size: Regular) Pulse 64 Temp36.4 ??C (Tympanic) Resp 15 Ht 169.8 cm Wt 79.2 kg SpO2 98% BMI 27.47 kg/m?? PHYSICAL EXAM Vitals reviewed. Constitutional General: She is not in acute distress. Appearance: Normal appearance. She is not diaphoretic. HENT Head: Normocephalic. Mouth/Throat: Mouth: Mucous membranes are moist. Eyes General: No scleral icterus. Extraocular Movements: Extraocular movements intact. Cardiovascular Rate and Rhythm: Normal rate and regular rhythm. Heart sounds: Normal heart sounds. Pulmonary Effort: Pulmonary effort is normal. Breath sounds: Normal breath sounds. Abdominal General: Bowel sounds are normal. There is no distension. Palpations: There is no fluid wave, hepatomegaly, splenomegaly or mass. Tenderness: There is no abdominal tenderness. There is no right CVA tenderness, left CVA tenderness, guarding or rebound. Musculoskeletal General: No swelling. Right lower leg: No edema. Left lower leg: No edema. Skin General: Skin is dry. Coloration: Skin is not jaundiced. Neurological General: No focal deficit present. Mental Status: She is alert and oriented to person, place, and time. Gait: Gait normal. Psychiatric Mood and Affect: Mood normal. Behavior: Behavior normal. Thought Content: Thought content normal. Judgment: Judgment normal. LABORATORY DATA Lab data reviewed. Lab Results Component Value Date HGB 14.1 10/15/2023 PLT 178 10/15/2023 WBC 8.2 10/15/2023 AST 25 10/15/2023 ALT 28 10/15/2023 ALKPHOS 96 10/15/2023 BILITOT 0.4 10/15/2023 NA 140 10/15/2023 KSERUM 4.5 10/15/2023 CL 106 10/15/2023 CREATININE 0.90 10/15/2023 CREATPOC 0.9 02/19/2023 BUN 8 10/15/2023 TSH 3.2 09/28/2021 INR 1.1 12/06/2022 GLUCOSE 92 10/15/2023 CEA 2.7 07/24/2023 RADIOLOGICAL DATA Radiology data reviewed. ASSESSMENT / PLAN #1 Stage IV rectal adenocarcinoma #2 Liver metastasis I had lengthy discussion regarding excellent response of stage IV CRC-LM. This is on the basis of my personal review of images from CT CAP 07/24/2023 and 11/29/2022, MR pelvis 09/06/2023, MR abdomen 09/12/2023 which all showed extensive liver Mets that have responded very well to treatment as well as little to no residual tumor within the rectum, particularly on diffusion weighting. She has recently met with my colleagues in [facility], CRS, and Rad Onc. She has been offered hepatic metastasectomy (1 stage) by Dr. Franks are if agreed by CRS. They have offered APR versus non if she gets rectal radiation to complete MARLENE and has a clinical complete response. APR would be recommendedif she did not have clinical complete response. Ms. William is anxious about surgical interventions of any kind. We had lengthy discussion regarding the risks and benefits of this interventional course versus ongoing palliative systemic chemotherapy.I do note that she has had a CCR versus near CCR in the pelvis already. Her cancer may be highly likely to return despite the excellent response due to the number of liver lesions at baseline though this would be a way to have a chemo holiday and monitor for recurrence. She will think about this and give us our answer. I have advised her that it would be ideal to not delay this decision for too many weeks so that we do not have any future progression remove any locoregional options. She agrees and will contact us with her decision. In the meantime, she should continue 5 FU +bevacizumab maintenance chemotherapy unless she decides for interventional approach. Bevacizumab should be held ideally 4-6 weeks prior to any radiation therapy commencing. Advised that palmar hyperpigmentation is a benign side effect of fluoropyrimidines Patient requested reassessment in clinic in 2 months. I have ordered labs scans and return visit atthat time in case she opts out of surgery and chooses to continue palliative maintenance chemo. PATIENT EDUCATION Ready to learn, no apparent learning barriers were identified; learning preferences include listening. Explained diagnosis and treatment plan; patient expressed understanding of the content. ADMINISTRATIVE BILLING I personally spent 60 minutes in care of the patient today. Time includes both non face to face andface to face patient care. documented in this encounter Plan of Treatment Upcoming Encounters Date Type Department Care Team (Latest Contact Info) Description 12/13/2023 12:30 PM CDT Clinical Communication Virtual Review in [address] [phone] 12/16/2023 7:15 AM CDT Appointment Department of Radiology, [facility], in [address] [phone] Elisabeth Turner M.D. [address] [place] [phone] 12/16/2023 8:20 AM CDT Lab Department of Infusion Therapy in [address] [phone] Elisabeth Turner M.D. [address] [place] [phone] 12/16/2023 9:15 AM CDT Clinical Support Enema Prep Facility in [address] [phone] Mendy Quintanilla M.D. [address] [place] [phone] 12/16/2023 10:30 AM CDT Office Visit Division of Colon and Rectal Surgery in [address] [phone] Mendy Quintanilla M.D. [address] [place] [phone] 12/16/2023 10:30 AM CDT Appointment Division of Colon and Rectal Surgery in [place], [place] [address] [place] [address] Mendy Quintanilla M.D. 200 [place] [phone] Discharge Disposition: Home or Self Care 12/16/2023 11:00 AM CDT Office Visit Department of Oncology in [place], [place] [address] [place] [address] Elisabeth Turner M.D. [address] [place] [address] Scheduled Orders Name Type Priority Associated Diagnoses Order Schedule Bilirubin, Direct Lab Routine Malignant Neoplasm Of Rectum (HCC) Secondary Malignant Neoplasm Liver (HCC) Expected: 12/14/2023 (Approximate), Expires: 01/14/2025 CBC, Chemotherapy, No Alerts Lab Routine Malignant Neoplasm Of Rectum (HCC) Secondary Malignant Neoplasm Liver (HCC) Expected: 12/14/2023 (Approximate), Expires: 10/14/2024 CEA (Carcinoembryonic Antigen) Lab Routine Malignant Neoplasm Of Rectum (HCC) Secondary Malignant Neoplasm Liver (HCC) Expected: 12/14/2023 (Approximate), Expires: 10/14/2024 Comprehensive Metabolic Panel Lab Routine Malignant Neoplasm Of Rectum (HCC) Secondary Malignant Neoplasm Liver (HCC) Expected: 12/14/2023 (Approximate), Expires: 01/14/2025 CT Abdomen Pelvis with IV Contrast Imaging RAD - Routine (most inpatients and all outpatients) Malignant Neoplasm Of Rectum (HCC) Secondary Malignant Neoplasm Liver (HCC) Expected: 12/16/2023, Expires: 01/14/2025 CT Chest without IV Contrast Imaging RAD - Routine (most inpatients and all outpatients) Malignant Neoplasm Of Rectum (HCC) Secondary Malignant Neoplasm Liver (HCC) Expected: 12/16/2023 (Approximate), Expires: 01/14/2025 Scheduled Referrals Name Type Priority Associated Diagnoses Orde r Schedule Oncology office visit (clinic) Outpatient Referral Routine Expected: 12/14/2023 (Approximate), Expires: 01/14/2025 documented as of this encounter Visit Diagnoses Diagnosis Malignant Neoplasm Of Rectum (HCC)- Primary Secondary Malignant Neoplasm Liver (HCC) documented in this encounter Care Teams Swing Tender Relationship Specialty Start Date End Date Elsewhere, Pcp PCP - General Internal Medicine 09/26/21 documented as of this encounter
--- OUTSIDE RECORDS SUMMARY | 2023-11-30 09:42 | XMS_ITS | Encounter Summary ---
Author Organization [facility] Address [address] [place] [phone] Care Team Providers Care Octave Board Racker Name Role Phone Elsewhere, Pcp Primary Care Provider Unavailabl e Reason for Visit * Reason Onset Date Comments Appt Request 07/22/2023 Encounter Details Date Type Department Care Team (Late st Contact Info) Description 07/22/2023 Clinical Communication Department of Oncology in [place], [place] [address] [place] [phone] Johnathan José M.D. [address] [place] [phone] Appt Request 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 Tobacco Use Types [...] often do you attend chur ch or buddhism services? Never 09/22/2021 Do you belong to any clubs o r organizations such as adventism groups, unions, fraternal or athletic groups, or [...] and heating? Not hard at all 11/22/[address] [facility] [place] [facility] Questionnaire Answer Date [...] living situation today? I have a [facility] place to live 11/22/2022 Education [...] PM CDT Clinical Communication Virtual Review in [place], [place] 200 [place] [phone] 12/16/2023 7:15 AM CDT Appointment Department of Radiology, [facility], in [place], [place] [address] [place] [phone] Elisabeth Turner M.D. [address] [place] [phone] 12/16/2023 8:20 AM CDT Lab Department of Infusion Therapy in [place], [place] [address] [place] [phone] Elisabeth Turner M.D. [address] [place] [phone] 12/16/2023 9:15 AM CDT Clinical Support Enema Prep Facility in [place], [place] [address] [place] [address] Mendy Quintanilla M.D. [address] [place] [phone] 12/16/2023 10:30 AM CDT Office Visit Division of Colon and Rectal Surgery in [place], [place] [address] [place] [address] Mendy Quintanilla M.D. [address] [place] [phone] 12/16/2023 10:30 AM CDT Appointment Division of Colon and Rectal Surgery in [place], [place] [address] [place] [address] Mendy Quintanilla M.D. [address] [place] [phone] Discharge Disposition: Home or Self Care 12/16/2023 11:00 AM CDT Office Visit Department of Oncology in [place], [place] [address] [place] [phone] Elisabeth Turner M.D. [address] [place] [phone] documented as of this encounter Visit Diagnoses Not on filedocumented in this encounter Care Teams Octave Board Racker Relationship Specialty Start Date End Date Elsewhere, Pcp PCP - General Internal Medicine 09/26/21 documented as of this encounter
--- OUTSIDE RECORDS SUMMARY | 2023-11-30 09:42 | XMS_ITS | Encounter Summary ---
Author Organization [facility] Address [address] [place] [address] Care Team Providers Care Production Aide Name Role Phone Elsewhere, Pcp Primary Care Provider Unavailabl e Reason for Visit * MRI/CAT/PET Scan (Routine) - Closed Specialty Diagnoses / Procedures Referred By Tammy t Referred To Contact Radiology Diagnoses Malignant Neoplasm Of Rectum (HCC) Procedures MR Pelvis Rectal CA Staging without IV Contrast MR Pelvis Rectal CA Staging without and with IV Contrast Johnathan José M.D. 200 [place] [address] [facility] Referral ID Status Reason Start Date Expiration Date Visits Re quested Visits Authorized [id number] Closed 07/31/2023 07/30/2024 1 1 Encounter Details Date Type Department Care Team (Latest Contact Info) Description 09/06/2023 7:14 AM CDT - 09/06/2023 11:59 PM CDT Hospital Encounter Department of Radiology, [facility] in [place], [place] [address] [place] [address] Johnathan José M.D. [address] [place] [phone] Malignant Neoplasm Of Rectum (HCC) Discharge Disposition: [...] How often do you attend chur or oriental orthodox services? Never 09/22/2021 Do you belong to any clubs o r organizations such as mosque groups, unions, fraternal [...] hard at all 11/22/2022 [facility] of Occupat ional Health - Occupational Stress [...] Body Mass Index 27.37 04/26/2023 2:25 PM CHEF documented in this encounter Medications at Time [...] medication as ordered. Instruct patient to turn correspondence coordinator light with bowel movement has occurred on [...] PM CDT Clinical Communication Virtual Review in [address] [phone] 12/16/2023 7:15 AM CDT Appointment Department of Radiology, [facility], in [place], [place] [address] [place] [phone] Elisabeth Turner M.D. [address] [place] [phone] 12/16/2023 8:20 AM CDT Lab Department of Infusion Therapy in [address] [phone] Elisabeth Turner M.D. [address] [place] [phone] 12/16/2023 9:15 AM CDT Clinical Support Enema Prep Facility in [address] [phone] Mendy Quintanilla M.D. [address] [place] [phone] 12/16/2023 10:30 AM CDT Office Visit Division of Colon and Rectal Surgery in [address] [phone] Mendy Quintanilla M.D. [address] [place] [phone] 12/16/2023 10:30 AM CDT Appointment Division of Colon and Rectal Surgery in [place], [place] [address] [place] [phone] Mendy Quintanilla M.D. [address] [place] [phone] Discharge Disposition: Home or Self Care 12/16/2023 11:00 AM CDT Office Visit Department of Oncology in [place], [place] [address] [place] [phone] Elisabeth Turner M.D. [address] [place] [phone] documented as of this encounter Procedures Procedure [...] mg documented in this encounter Care Teams Production Aide Relationship Specialty Start Date End Date Elsewhere, Pcp PCP - General Internal Medicine 09/26/21 documented as of this encounter
--- OUTSIDE RECORDS SUMMARY | 2023-11-30 09:42 | XMS_ITS | Encounter Summary ---
Author Organization [facility] Address [address] [place] [address] Care Team Providers Care Enterprise Manager Name Role Phone Elsewhere, Pcp Primary Care Provider Unavailabl e Reason for Referral * Outpatient (Routine) - Closed Specialty Diagnoses / Procedures Referred By Contbj t Referred To Contact Colon and Rectal Surgery Diagnoses Malignant Neoplasm Of Rectum (HCC) Secondary Malignant Neoplasm Liver (HCC) Johnathan José M.D. 200 [place] [address] [facility] Referral ID Status Reason Start Date Expiration Date Visits Re quested Visits Authorized [id number] Closed 09/18/2023 03/19/2025 [address] Quintanilla. Thanks! * Outpatient (Routine) - Closed Specialty Diagnoses / Procedures Referred By Tammy stone Referred To Contact General Surgery Diagnoses Malignant Neoplasm Of Rectum (HCC) Secondary Malignant Neoplasm Liver (HCC) Johnathan José M.D. 200 [place] [address] [facility] Referral ID Status Reason Start Date Expiration Date Visits Re quested Visits Authorized [id number] Closed 09/18/2023 03/19/2025 [address] Noble can see her this , please work with her team. Thanks! * Outpatient (Routine) - Closed Specialty Diagnoses / Procedures Referred By Tammy t Referred To Contact Oncology Johnathan José M.D. [address] [place] [phone] [facility] Referral ID Status Reason Start Date Expiration Date Visits Re quested Visits Authorized [id number] Closed 09/18/2023 03/19/2025 1 1 Encounter Details Date Type Department Care Team (Late st Contact Info) Description 09/18/2023 Orders Only Department of Oncology in [place], [place] [address] [place] [phone] Johnathan José M.D. [address] [place] [phone] Malignant Neoplasm Of Rectum (HCC) (Primary Dx); [...] often do you attend chur ch or lutheran services? Never 09/22/2021 Do you belong to [...] and heating? Not hard at all 11/22/2022 [facility] [place] of Occupat ional Health - Occupational Stress [...] your living situation today? I have a [facility] place to live 11/22/2022 Education Answer [...] PM CDT Clinical Communication Virtual Review in [place], [place] 200 [place] [phone] 12/16/2023 7:15 AM CDT Appointment Department of Radiology, [facility], in [place], [place] [address] [place] [phone] Elisabeth Turner M.D. [address] [place] [phone] 12/16/2023 8:20 AM CDT Lab Department of Infusion Therapy in [place], [place] [address] [place] [phone] Elisabeth Turner M.D. [address] [place] [phone] 12/16/2023 9:15 AM CDT Clinical Support Enema Prep Facility in [place], [place] [address] [place] [phone] Mendy Quintanilla M.D. [address] [place] [phone] 12/16/2023 10:30 AM CDT Office Visit Division of Colon and Rectal Surgery in [place], [place] [address] [place] [phone] Mendy Quintanilla M.D. [address] [place] [phone] 12/16/2023 10:30 AM CDT Appointment Division of Colon and Rectal Surgery in [place], [place] [address] [place] [phone] Mendy Quintanilla M.D. [address] [place] [phone] Discharge Disposition: Home or Self Care 12/16/2023 11:00 AM CDT Office Visit Department of Oncology in [place], [place] [address] [place] [phone] Elisabeth Turner M.D. [address] [place] [phone] Scheduled Referrals Name Type Priority Associated Diagnoses [...] Expires: 12/18/2024 documented as of this encounter Results * (ABNORMAL) CBC with [...] CDT Johnathan José M.D. LAB BLOOD ADD-ON [facility] [address] [place] [address], [facility] DTL [facility] [address] [place] [address] [facility] [address] [place] [address] * (ABNORMAL) CEA (Carcinoembryonic Antigen) (10/15/2023 8:15 AM CDT) Pathologist [facility] Carcinoembryonic Ag (CEA), S 9.4(H) ng/mL 10/15/2023 2:55 PM CDT [facility] Comment: ----REFERENCE VALUE---- <=3.0 (Non-smokers) Some smokers may have elevated CEA, usually <5.0. ----ADDITIONAL INFORMATION---- The testing method is an immunoenzymatic assay manufactured by [employer]. and performed on the [employer]. ? Values obtained with different assay methods or kits may be different and cannot be used interchangeably. ? Test results cannot be interpreted as absolute evidence for the presence or absence of malignant disease. Blood (Blood, Venous) 10/15/2023 8:15 AM CDT 10/15/2023 1:48 PM CDT Johnathan José M.D. LAB BLOOD ADD-ON [facility] [address] [place] [address] [facility] [address] [place] [address] * (ABNORMAL) Comprehensive Metabolic Panel (10/15/2023 8:15 AM CDT) Pathologist [facility] Potassium, S 4.5 3.6 - 5.2 mmol/L [...] CDT Johnathan José M.D. LAB BLOOD ADD-ON [facility] [address] [place] [address], [facility] [address] [place] [address] documented in this encounter Visit Diagnoses Diagnosis Malignant Neoplasm Of Rectum (HCC)- Primary Secondary Malignant Neoplasm Liver (HCC) documented in this encounter Care Teams Enterprise Manager Relationship Specialty Start Date End Date Elsewhere, Pcp PCP - General Internal Medicine 09/26/21 documented as of this encounter
--- OUTSIDE RECORDS SUMMARY | 2023-11-30 09:42 | XMS_ITS | Encounter Summary ---
Author Organization [facility] Address [address] [place] [address] Care Team Providers Care Consumer Education Specialist Name Role Phone Elsewhere, Pcp Primary Care Provider Unavailabl e Reason for Visit * Outpatient (Routine) - Closed Specialty Diagnoses / Procedures Referred By Tammy stone Referred To Contact General Surgery Diagnoses Malignant Neoplasm Of Rectum (HCC) Secondary Malignant Neoplasm Liver (HCC) Johnathan José M.D. [address] [place] [phone] [facility] Referral ID Status Reason Start Date Expiration Date Visits Re quested Visits Authorized [id number] Closed 07/25/2023 01/23/2025 1 1 Encounter Details Date Type Department Care Team (Latest Contact Info) Description 09/17/2023 10:30 AM CDT Comprehensive Visit Division of Hepatobiliary and Pancreas Surgery in [place], [place] [address] [place] [phone] Mahad Harrell M.D., Ph.D. [address] [place] [phone] Malignant Neoplasm Of Rectum (HCC); Secondary Malignant [...] week 09/22/2021 How often do you attend [facility] or scientologist services? Never 09/22/2021 Do you belong to any clubs o r organizations such as adventist groups, unions, fraternal or athletic groups, or [...] and heating? Not hard at all 11/22/2022 [facility] [place] of Occupat ional Health - Occupational Stress [...] your living situation today? I have a [facility] place to live 11/22/2022 Education Answer [...] PM CDT Clinical Communication Virtual Review in [address] [phone] 12/16/2023 7:15 AM CDT Appointment Department of Radiology, [facility], in [address] [phone] Elisabeth Turner M.D. [address] [place] [phone] 12/16/2023 8:20 AM CDT Lab Department of Infusion Therapy in [address] [phone] Elisabeth Turner M.D. [address] [place] [phone] 12/16/2023 9:15 AM CDT Clinical Support Enema Prep Facility in [address] [phone] Mendy Quintanilla M.D. [address] [place] [phone] 12/16/2023 10:30 AM CDT Office Visit Division of Colon and Rectal Surgery in [address] [phone] Mendy Quintanilla M.D. [address] [place] [phone] 12/16/2023 10:30 AM CDT Appointment Division of Colon and Rectal Surgery in [place], [place] [address] [place] [address] Mendy Quintanilla M.D. [address] [place] [phone] Discharge Disposition: Home or Self Care 12/16/2023 11:00 AM CDT Office Visit Department of Oncology in [place], [place] [address] [place] [address] Elisabeth Turner M.D. [address] [place] [phone] documented as of this encounter Visit Diagnoses Diagnosis Malignant Neoplasm Of Rectum (HCC) Secondary Malignant Neoplasm Liver (HCC) documented in this encounter Care Teams Consumer Education Specialist Relationship Specialty Start Date End Date Elsewhere, Pcp PCP - General Internal Medicine 09/26/21 documented as of this encounter
--- OUTSIDE RECORDS SUMMARY | 2023-11-30 09:42 | XMS_ITS | Encounter Summary ---
Author Organization [facility] Address [address] [place] [address] Care Team Providers Care Construction Lineman Name Role Phone Elsewhere, Pcp Primary Care Provider Unavailabl e Encounter Details Date Type Department Care Team (Late st Contact Info) Description 09/25/2023 Patient Outreach Department of Oncology in [place], [place] [address] [place] [phone] Dayan Garber M.S.N., R.N. [address] [place] [phone] 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 Tobacco Use Types Packs/Day Years [...] often do you attend chur ch or anglican services? Never 09/22/2021 Do you belong to [...] and heating? Not hard at all 11/22/2022 [facility] of Occupat ional Health - Occupational [...] your living situation today? I have a [facility] place to live 11/22/2022 Education Answer Date [...] PM CDT Clinical Communication Virtual Review in [place], [place] 200 [place] [address] 12/16/2023 7:15 AM CDT Appointment Department of Radiology, [facility], in [place], [place] [address] [place] [phone] Elisabeth Turner M.D. [address] [place] [phone] 12/16/2023 8:20 AM CDT Lab Department of Infusion Therapy in [place], [place] [address] [place] [phone] Elisabeth Turner M.D. [address] [place] [phone] 12/16/2023 9:15 AM CDT Clinical Support Enema Prep Facility in [place], [place] [address] [place] [phone] Mendy Quintanilla M.D. [address] [place] [phone] 12/16/2023 10:30 AM CDT Office Visit Division of Colon and Rectal Surgery in [place], [place] [address] [place] [phone] Mendy Quintanilla M.D. [address] [place] [phone] 12/16/2023 10:30 AM CDT Appointment Division of Colon and Rectal Surgery in [place], [place] [address] [place] [phone] Mendy Quintanilla M.D. [address] [place] [phone] Discharge Disposition: Home or Self Care 12/16/2023 11:00 AM CDT Office Visit Department of Oncology in [place], [place] [address] [place] [phone] Elisabeth Turner M.D. [address] [place] [phone] documented as of this encounter Visit Diagnoses Not on filedocumented in this encounter Care Teams Construction Lineman Relationship Specialty Start Date End Date Elsewhere, Pcp PCP - General Internal Medicine 09/26/21 documented as of this encounter
--- OUTSIDE RECORDS SUMMARY | 2023-11-30 09:42 | XMS_ITS | Encounter Summary ---
Author Organization [facility] Address [address] [place] [address] Care Team Providers Care Reproduction Artist Name Role Phone Elsewhere, Pcp Primary Care Provider Unavailabl e Encounter Details Date Type Department Care Team (Late st Contact Info) Description 07/31/2023 Clinical Communication Department of Oncology in [place], [place] [address] [place] [address] Johnathan José M.D. [address] [place] [phone] 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 Tobacco Use Types Packs/Day Years [...] often do you attend chur ch or jehovah's witness services? Never 09/22/2021 Do you belong to [...] and heating? Not hard at all 11/22/2022 [facility] - Occupational Stress Questionnaire Answer [...] your living situation today? I have a [facility] place to live 11/22/2022 Education Answer [...] PM CDT Clinical Communication Virtual Review in [place], [place] 200 [place] [address] 12/16/2023 7:15 AM CDT Appointment Department of Radiology, [facility], in [place], [place] [address] [place] [phone] Elisabeth Turner M.D. [address] [place] [phone] 12/16/2023 8:20 AM CDT Lab Department of Infusion Therapy in [place], [place] [address] [place] [phone] Elisabeth Turner M.D. [address] [place] [phone] 12/16/2023 9:15 AM CDT Clinical Support Enema Prep Facility in [place], [place] [address] [place] [phone] Mendy Quintanilla M.D. [address] [place] [phone] 12/16/2023 10:30 AM CDT Office Visit Division of Colon and Rectal Surgery in [place], [place] [address] [place] [phone] Mendy Quintanilla M.D. [address] [place] [phone] 12/16/2023 10:30 AM CDT Appointment Division of Colon and Rectal Surgery in [place], [place] [address] [place] [phone] Mendy Quintanilla M.D. [address] [place] [phone] Discharge Disposition: Home or Self Care 12/16/2023 11:00 AM CDT Office Visit Department of Oncology in [place], [place] [address] [place] [phone] Elisabeth Turner M.D. [address] [place] [phone] documented as of this encounter Visit Diagnoses Not on filedocumented in this encounter Care Teams Reproduction Artist Relationship Specialty Start Date End Date Elsewhere, Pcp PCP - General Internal Medicine 09/26/21 documented as of this encounter
--- OUTSIDE RECORDS SUMMARY | 2023-11-30 09:42 | XMS_ITS | Encounter Summary ---
Author Organization [facility] Address [address] [place] [address] Care Team Providers Care Amplifier Mechanic Name Role Phone Elsewhere, Pcp Primary Care Provider Unavailabl e Encounter Details Date Type Department Care Team (Late st Contact Info) Description 09/18/2023 Clinical Communication Department of Oncology in [place], [place] [address] [place] [phone] Johnathan José M.D. [address] [place] [phone] 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 Tobacco Use Types Packs/Day Years [...] often do you attend chur ch or pentecostal services? Never 09/22/2021 Do you belong to any clubs o r organizations such as buddhist groups, unions, fraternal or athletic groups, or [...] and heating? Not hard at all 11/22/2022 [facility] - Occupational Stress Questionnaire [...] your living situation today? I have a [facility] place to live 11/22/2022 Education Answer [...] PM CDT Clinical Communication Virtual Review in [place], [place] [address] [place] [address] 12/16/2023 7:15 AM CDT Appointment Department of Radiology, [facility], in [place], [place] [address] [place] [phone] Elisabeht Turner M.D. [address] [place] [phone] 12/16/2023 8:20 AM CDT Lab Department of Infusion Therapy in [place], [place] [address] [place] [phone] Elisabeth Turner M.D. [address] [place] [phone] 12/16/2023 9:15 AM CDT Clinical Support Enema Prep Facility in [place], [place] [address] [place] [phone] Mendy Quintanilla M.D. [address] [place] [phone] 12/16/2023 10:30 AM CDT Office Visit Division of Colon and Rectal Surgery in [place], [place] [address] [place] [phone] Mendy Quintanilla M.D. [address] [place] [phone] 12/16/2023 10:30 AM CDT Appointment Division of Colon and Rectal Surgery in [place], [place] [address] [place] [phone] Mendy Quintanilla M.D. [address] [place] [phone] Discharge Disposition: Home or Self Care 12/16/2023 11:00 AM CDT Office Visit Department of Oncology in [place], [place] [address] [place] [phone] Elisabeth Turner M.D. [address] [place] [phone] documented as of this encounter Visit Diagnoses Not on filedocumented in this encounter Care Teams Amplifier Mechanic Relationship Specialty Start Date End Date Elsewhere, Pcp PCP - General Internal Medicine 09/26/21 documented as of this encounter
--- OUTSIDE RECORDS SUMMARY | 2023-11-30 09:42 | XMS_ITS | Encounter Summary ---
Author Organization [facility] Address [address] [place] [address] Care Team Providers Care Construction Director Name Role Phone Elsewhere, Pcp Primary Care Provider Unavailabl e Reason for Referral * Outpatient (Routine) - Closed Specialty Diagnoses / Procedures Referred By Tammy stone Referred To Contact General Surgery Diagnoses Malignant Neoplasm Of Rectum (HCC) Secondary Malignant Neoplasm Liver (HCC) Johnathan José M.D. [address] [place] [phone] [facility] Referral ID Status Reason Start Date Expiration Date Visits Re quested Visits Authorized [id number] Closed 07/25/2023 01/23/2025 [address] Harrell YANIQUE. Thanks! Reason for Visit * Outpatient (Routine) - Closed Specialty Diagnoses / Procedures Referred By Tammy stone Referred To Contact Oncology Lew Barclay M.D., Ph.D. [address] [place] [phone] [facility] Referral ID Status Reason Start Date Expiration Date Visits Re quested Visits Authorized [id number] Closed 04/26/2023 10/25/2024 1 1 Encounter Details Date Type Department Care Team (Late st Contact Info) Description 07/25/2023 9:10 AM CDT Telemedicine Department of Oncology in [place], [place] [address] [place] [phone] Johnathan José M.D. [address] [place] [address] Malignant Neoplasm Of Rectum (HCC) (Primary Dx); [...] week 09/22/2021 How often do you attend [facility] or jehovah's witness services? Never 09/22/2021 Do you belong to any clubs o r organizations such as shinto groups, unions, fraternal or athletic groups, or [...] and heating? Not hard at all 11/22/2022 [facility] - Occupational Stress Questionnaire Answer [...] video technology. I originated the visit from [facility]. She was located in her home. SUBJECTIVE LOCAL ONCOLOGIST No care felt hat steamer to display PRIMARY OTTO ONCOLOGIST Ileana Menchaca M.D. Johnathan José M.D. [...] sitting on. Her PCP recommended fiber. Her air conditioner installer helper did a pelvis exam which was normal, [...] at the referring institution and reviewed at [facility] in [place], [place]. The tumor cells are positive for [...] rectum neoplasm. Immunohistochemical stains were performed at [facility] (block A1). The neoplastic cells are positive for CDX2 and CK7 while negative for CK20. Comparison with prior rectal tumor biopsy ([id number]) was performed, and the present neoplasm displays [...] PM CDT Clinical Communication Virtual Review in [place], [place] 200 [place] [address] 12/16/2023 7:15 AM CDT Appointment Department of Radiology, [facility], in [address] [phone] Elisabeth Turner M.D. [address] [place] [phone] 12/16/2023 8:20 AM CDT Lab Department of Infusion Therapy in [address] [phone] Elisabeth Turner M.D. [address] [place] [phone] 12/16/2023 9:15 AM CDT Clinical Support Enema Prep Facility in [place], [place] [address] [place] [phone] Mendy Quintanilla M.D. [address] [place] [phone] 12/16/2023 10:30 AM CDT Office Visit Division of Colon and Rectal Surgery in [place], [place] [address] [place] [phone] Mendy Quintanilla M.D. [address] [place] [phone] 12/16/2023 10:30 AM CDT Appointment Division of Colon and Rectal Surgery in [place], [place] [address] [place] [phone] Mendy Quintanilla M.D. [address] [place] [phone] Discharge Disposition: Home or Self Care 12/16/2023 11:00 AM CDT Office Visit Department of Oncology in [place], [place] [address] [place] [phone] Elisabeth Turner M.D. [address] [place] [phone] Scheduled Referrals Name Type Priority Associated Diagnoses Orde r Schedule General Surgery - Biliary / liver consult (clinic) Outpatient Referral Routine Malignant Neoplasm Of Rectum (HCC) Secondary Malignant Neoplasm Liver (HCC) Expected: 07/25/2023, Expires: 10/23/2024 documented as of this encounter Visit Diagnoses Diagnosis Malignant Neoplasm Of Rectum (HCC)- Primary Secondary Malignant Neoplasm Liver (HCC) documented in this encounter Care Teams Construction Director Relationship Specialty Start Date End Date Elsewhere, Pcp PCP - General Internal Medicine 09/26/21 documented as of this encounter
--- OUTSIDE RECORDS SUMMARY | 2023-11-30 09:42 | XMS_ITS | Encounter Summary ---
Author Organization [facility] Address [address] [place] [address] Care Team Providers Care Insurance And Financial Services Agent Name Role Phone Elsewhere, Pcp Primary Care Provider Unavailabl e Encounter Details Date Type Department Care Team (Latest Contact Info) Description 09/05/2023 12:45 PM CDT Clinical Communication Virtual Review in [place], [place] 200 [place] [address] 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 Tobacco Use Types Packs/Day Years [...] often do you attend chur ch or spiritism services? Never 09/22/2021 Do you belong to [...] and heating? Not hard at all 11/22/2022 [facility] of Occupat ional Health - Occupational Stress [...] your living situation today? I have a [facility] place to live 11/22/2022 Education Answer Date [...] PM CDT Clinical Communication Virtual Review in [place], [place] 200 [place] [address] 12/16/2023 7:15 AM CDT Appointment Department of Radiology, [facility], in [address] [phone] Elisabeth Turner M.D. [address] [place] [phone] 12/16/2023 8:20 AM CDT Lab Department of Infusion Therapy in [address] [phone] Elisabeth Turner M.D. [address] [place] [phone] 12/16/2023 9:15 AM CDT Clinical Support Enema Prep Facility in [place], [place] [address] [place] [address] [place] [phone] Mendy Quintanilla M.D. [address] [place] [phone] 12/16/2023 10:30 AM CDT Office Visit Division of Colon and Rectal Surgery in [place], [place] [address] [place] [address] Mendy Quintanilla M.D. [address] [place] [phone] 12/16/2023 10:30 AM CDT Appointment Division of Colon and Rectal Surgery in [place], [place] [address] [place] [address] Mendy Quintanilla M.D. [address] [place] [phone] Discharge Disposition: Home or Self Care 12/16/2023 11:00 AM CDT Office Visit Department of Oncology in [place], [place] [address] [place] [phone] Elisabeth Turner M.D. [address] [place] [phone] documented as of this encounter Visit Diagnoses Not on filedocumented in this encounter Care Teams Insurance And Financial Services Agent Relationship Specialty Start Date End Date Elsewhere, Pcp PCP - General Internal Medicine 09/26/21 documented as of this encounter
--- OUTSIDE RECORDS SUMMARY | 2023-11-30 09:42 | XMS_ITS | Encounter Summary ---
Author Organization [facility] Address [address] [place] [address] Care Team Providers Care Trade Analyst Name Role Phone Elsewhere, Pcp Primary Care Provider Unavailabl e Reason for Referral * MRI/CAT/PET Scan (Routine) - Closed Specialty Diagnoses / Procedures Referred By Tammy stone Referred To Contact Radiology Diagnoses Malignant Neoplasm Of Rectum (HCC) Procedures MR Abdomen without and with IV Contrast Johnathan José M.D. 200 [place] [address] [facility] Referral ID Status Reason Start Date Expiration Date Visits Re quested Visits Authorized [id number] Closed 07/31/2023 07/30/2024 1 1 Reason for Visit * MRI/CAT/PET Scan (Routine) - Closed Specialty Diagnoses / Procedures Referred By Tammy stone Referred To Contact Radiology Diagnoses Malignant Neoplasm Of Rectum (HCC) Procedures MR Abdomen without and with IV Contrast Johnathan José M.D. 200 [place] [address] [facility] Referral ID Status Reason Start Date Expiration Date Visits Re quested Visits Authorized [id number] Closed 07/31/2023 07/30/2024 1 1 Encounter Details Date Type Department Care Team (Latest Contact Info) Description 09/12/2023 6:22 AM CDT - 09/12/2023 11:59 PM CDT Hospital Encounter Department of Radiology, [facility], in [place], [place] 200 [place] [address] Johnathan José M.D. 200 [place] [address] Malignant Neoplasm Of Rectum (HCC) Discharge Disposition: [...] often do you attend chur ch or gnosticist services? Never 09/22/2021 Do you belong to any clubs o r organizations such as restorationist groups, unions, fraternal or athletic groups, or [...] and heating? Not hard at all 11/22/2022 [facility] of Occupat ional [facility] - Occupational Stress Questionnaire Answer Date [...] PM CDT Clinical Communication Virtual Review in [place], [place] 200 [place] [address] 12/16/2023 7:15 AM CDT Appointment Department of Radiology, [facility], in [address] [phone] Elisabeth Turner M.D. [address] [place] [phone] 12/16/2023 8:20 AM CDT Lab Department of Infusion Therapy in [address] [place] [address] Elisabeth Turner M.D. [address] [place] [phone] 12/16/2023 9:15 AM CDT Clinical Support Enema Prep Facility in [place], [place] [address] [place] [phone] Mendy Quintanilla M.D. [address] [place] [phone] 12/16/2023 10:30 AM CDT Office Visit Division of Colon and Rectal Surgery in [place], [place] [address] [place] [phone] Mendy Quintanilla M.D. [address] [place] [phone] 12/16/2023 10:30 AM CDT Appointment Division of Colon and Rectal Surgery in [address] [phone] Mendy Quintanilla M.D. [address] [place] [phone] Discharge Disposition: Home or Self Care 12/16/2023 11:00 AM CDT Office Visit Department of Oncology in [address] [phone] Elisabeth Turner M.D. [address] [place] [phone] documented as of this encounter Procedures Procedure [...] intravenous, Once in imaging, contrast, Starting on Fanny 09/12/23 at 0630, For 1 dose, Imaging Protocol [...] mL documented in this encounter Care Teams Trade Analyst Relationship Specialty Start Date End Date Elsewhere, Pcp PCP - General Internal Medicine 09/26/21 documented as of this encounter
== END 2023-11-30 10:00 | disposition home or self-care (01) ==
PROVIDERS: Emergency Provider Emergency Medicine Emergency Medical Services; PCP Family Medicine
DX: S92.354A Nondisplaced fracture of fifth metatarsal bone, right foot, initial encounter for closed fracture (principal); W01.0XXA Fall on same level from slipping, tripping and stumbling without subsequent striking against object, initial encounter
CPT/HCPCS: 73630; 99283; 99284

== ENCOUNTER 2023-12-19 11:00 | Outpatient (RCR) | payer MEDICARE, SELFPAY ==
[2023-07-02 10:11] VITALS: BP 149/82; PULSE 59; RESP 16; TEMP 35.7; O2SAT 100
[2023-07-02 10:43] LABS: Basophils Absolute Auto 0.03 K/uL (0.00-0.30); Basophils Percent Auto 0.4 % (0.0-3.0); Eosinophils Absolute Auto 0.41 K/uL (0.00-0.50); Eosinophils Percent Auto 5.6 % (0.0-7.0); Hematocrit 42.6 % (33.0-51.0); Immature Granulocytes Abs Auto 0.01 K/uL (0.00-0.30); Immature Granulocytes Pct Auto 0.1 %; Lymphocytes Absolute Auto 2.02 K/uL (0.90-2.90); Lymphocytes Percent Auto 27.6 % (20-44); Mean Corpuscular HGB Conc 33 gm/dL (32-36); Mean Corpuscular Hemoglobin 34 pg (26-34); Mean Corpuscular Volume 104 fL (80-100); Monocytes Percent Auto 12.3 % (0.0-11.0); Neutrophils Absolute Auto 3.95 K/uL (1.7-7.0); Platelet Count* 166 K/uL (140-440); RDW Coefficient of Variation % 15.1 % (11.5-15.5); White Blood Count* 7.32 K/uL (4.50-11.00)
[2023-07-02 10:47] LABS: Slide Review Reflex No
[2023-07-02 10:58] LABS: Chloride* 104 mmol/L (96-114); Sodium* 138 mmol/L (135-149)
[2023-07-02 11:01] LABS: Alanine Aminotransferase* 28 U/L (4-35); Alkaline Phosphatase* 88 U/L (40-150); Anion Gap 7 mEq/L (7-15); Aspartate Amino Transferase* 29 U/L (12-35); Bilirubin Total* 0.5 mg/dL (0.1-1.5); Blood Urea Nitrogen* 9 mg/dL (7-30); Calcium* 9.7 mg/dL (8.4-10.6); Carbon Dioxide* 27 mmol/L (20-32); Creatinine* 0.7 mg/dL (0.5-1.5); Estimated Glomerular Filt Rate 90 ml/min; Glucose* 118 mg/dL (60-115); Total Protein* 6.4 g/dL (6.0-8.3)
[2023-07-02 13:40] LABS: Creatinine Urine Random 179 mg/dL
--- NOTE | 2023-07-02 15:28 | PC.NURSE ---
Pt present at [facility] for treatment. Labs drawn and when RN accessed port, swelling was noted above RIGHT clavicle. RN cared for Christie the last few times adn this looked different. Pt's also noted the area looked more swollen. Pt evaluated by DON Gonzalez and an ultrasound was ordered to r/o clot. This took a better part of the day, so when results came back (negative), there wasn't enough time to treat today. Pt will return tomorrow for treatment.
[2023-07-02 15:44] LABS: Total Protein Urine < 5 mg/dL
[2023-07-02 15:47] LABS: Creatinine Urine 182.6 mg/dL
[2023-07-03 13:38] VITALS: BP 133/78; PULSE 65; RESP 18; TEMP 36.8; O2SAT 98
[2023-07-03] MEDS: dexAMETHasone 10 MG in 0.9 % SODIUM CHLORIDE 100 ml 100 ML 404 MG IVPB (14:35)
[2023-07-03] MEDS: PROCHLORPERAZINE 5 MG/ML VIAL 10 MG IV (14:36)
[2023-07-03] MEDS: LEUCOVORIN CALCIUM 100 MG, TUBING SECONDARY 1 EACH in 5 % DEXTROSE 250 ML 250 ML 510 MG IV (15:01)
[2023-07-05] MEDS: SODIUM CHLORIDE 0.9 % (FLUSH) 10 ML SYRINGE IVF (13:25)
[2023-07-05] MEDS: HEPARIN 500 UNIT/5 ML SYRINGE IVF (13:25)
[2023-07-05 13:59] VITALS: BP 174/83; PULSE 59; RESP 18; TEMP 36.3; O2SAT 99
[2023-07-16] MEDS: SODIUM CHLORIDE 0.9 % (FLUSH) 10 ML SYRINGE IVF ×3 (10:30→14:35)
[2023-07-16 10:36] LABS: Basophils Absolute Auto 0.04 K/uL (0.00-0.30); Basophils Percent Auto 0.7 % (0.0-3.0); Eosinophils Absolute Auto 0.34 K/uL (0.00-0.50); Eosinophils Percent Auto 5.6 % (0.0-7.0); Hematocrit 42.7 % (33.0-51.0); Immature Granulocytes Abs Auto 0.01 K/uL (0.00-0.30); Immature Granulocytes Pct Auto 0.2 %; Lymphocytes Absolute Auto 1.73 K/uL (0.90-2.90); Lymphocytes Percent Auto 28.7 % (20-44); Mean Corpuscular HGB Conc 33 gm/dL (32-36); Mean Corpuscular Hemoglobin 34 pg (26-34); Mean Corpuscular Volume 104 fL (80-100); Monocytes Percent Auto 12.3 % (0.0-11.0); Neutrophils Absolute Auto 3.16 K/uL (1.7-7.0); Neutrophils Percent Auto 52.5 % (42.0-72.0); Platelet Count* 159 K/uL (140-440); Red Blood Count 4.12 m/uL (4.00-5.20); White Blood Count* 6.02 K/uL (4.50-11.00)
[2023-07-16 10:37] LABS: Slide Review Reflex No
[2023-07-16 10:47] LABS: Chloride* 108 mmol/L (96-114)
[2023-07-16 10:48] LABS: Potassium* 3.8 mmol/L (3.6-5.1); Sodium* 138 mmol/L (135-149)
[2023-07-16 10:50] LABS: Alanine Aminotransferase* 27 U/L (4-35); Alkaline Phosphatase* 89 U/L (40-150); Anion Gap 5 mEq/L (7-15); Aspartate Amino Transferase* 27 U/L (12-35); Bilirubin Total* 0.5 mg/dL (0.1-1.5); Blood Urea Nitrogen* 13 mg/dL (7-30); Carbon Dioxide* 25 mmol/L (20-32); Creatinine* 0.7 mg/dL (0.5-1.5); Estimated Glomerular Filt Rate 90 ml/min; Glucose* 128 mg/dL (60-115); Total Protein* 6.5 g/dL (6.0-8.3)
[2023-07-16 10:51] LABS: Calcium* 9.1 mg/dL (8.4-10.6)
[2023-07-16] MEDS: 0.9 % SODIUM CHLORIDE 250 ml IV (11:30)
[2023-07-16 11:57] LABS: Total Protein Urine < 5 mg/dL
[2023-07-16 11:58] LABS: Creatinine Urine 89.4 mg/dL
[2023-07-16] MEDS: dexAMETHasone 10 MG in 0.9 % SODIUM CHLORIDE 100 ml 100 ML 420 MG IVPB (13:31)
[2023-07-16] MEDS: PROCHLORPERAZINE 5 MG/ML VIAL 10 MG IV (13:31)
[2023-07-16] MEDS: LEUCOVORIN CALCIUM 100 MG, TUBING SECONDARY 1 EACH in 5 % DEXTROSE 250 ML 250 ML 510 MG IV (13:53)
[2023-07-18 12:46] VITALS: BP 171/79; PULSE 61; RESP 16; TEMP 36.4; O2SAT 98
[2023-07-18] MEDS: SODIUM CHLORIDE 0.9 % (FLUSH) 10 ML SYRINGE IVF (13:22)
[2023-07-18] MEDS: HEPARIN 500 UNIT/5 ML SYRINGE IVF (13:22)
--- NOTE | 2023-07-25 11:50 | PC.NURSE ---
Pt's called today to confirm that they plan to be here on 07/30/2023 for MD visit and treatment. Per [facility] explained goals of care; curative intent with surgery vs. palliation with chemo only. They are feeling overwhelmed with this info and are planning to meet with a surgical team at [place]. In the meantime, it has been recommended to continue maintenance therapy with Avastin, Leucovorin, and 5FU. Will update MD. Supportive listening provided.
[2023-07-30 11:11] LABS: Basophils Absolute Auto 0.04 K/uL (0.00-0.30); Basophils Percent Auto 0.6 % (0.0-3.0); Eosinophils Percent Auto 5.9 % (0.0-7.0); Hematocrit 42.4 % (33.0-51.0); Hemoglobin* 14.1 gm/dL (12.0-16.0); Immature Granulocytes Abs Auto 0.01 K/uL (0.00-0.30); Immature Granulocytes Pct Auto 0.1 %; Lymphocytes Absolute Auto 1.81 K/uL (0.90-2.90); Lymphocytes Percent Auto 26.9 % (20-44); Mean Corpuscular HGB Conc 33 gm/dL (32-36); Mean Corpuscular Hemoglobin 35 pg (26-34); Mean Corpuscular Volume 104 fL (80-100); Monocytes Percent Auto 11.7 % (0.0-11.0); Neutrophils Absolute Auto 3.69 K/uL (1.7-7.0); Neutrophils Percent Auto 54.8 % (42.0-72.0); Platelet Count* 167 K/uL (140-440); RDW Coefficient of Variation % 15.3 % (11.5-15.5); Red Blood Count 4.09 m/uL (4.00-5.20); White Blood Count* 6.74 K/uL (4.50-11.00)
[2023-07-30 11:26] LABS: Chloride* 105 mmol/L (96-114); Potassium* 3.4 mmol/L (3.6-5.1); Sodium* 138 mmol/L (135-149)
[2023-07-30 11:27] LABS: Slide Review Reflex No
[2023-07-30 11:28] LABS: Anion Gap 7 mEq/L (7-15); Aspartate Amino Transferase* 35 U/L (12-35); Bilirubin Total* 0.6 mg/dL (0.1-1.5); Carbon Dioxide* 26 mmol/L (20-32); Creatinine* 0.7 mg/dL (0.5-1.5); Estimated Glomerular Filt Rate 90 ml/min
[2023-07-30 11:29] LABS: Alanine Aminotransferase* 27 U/L (4-35); Alkaline Phosphatase* 79 U/L (40-150); Blood Urea Nitrogen* 10 mg/dL (7-30); Calcium* 9.1 mg/dL (8.4-10.6); Glucose* 123 mg/dL (60-115); Total Protein* 6.5 g/dL (6.0-8.3)
[2023-07-30] MEDS: LEUCOVORIN CALCIUM 100 MG, TUBING SECONDARY 1 EACH in 5 % DEXTROSE 250 ML 250 ML 510 MG IV (13:15)
[2023-07-30 13:19] LABS: Total Protein Urine < 5 mg/dL
[2023-07-30 13:20] LABS: Creatinine Urine 130.5 mg/dL
[2023-07-30] MEDS: PROCHLORPERAZINE 5 MG/ML VIAL 10 MG IV (13:55)
[2023-07-30] MEDS: dexAMETHasone 10 MG in 0.9 % SODIUM CHLORIDE 100 ml 100 ML 400 MG IVPB (13:56)
[2023-07-30] MEDS: SODIUM CHLORIDE 0.9 % (FLUSH) 10 ML SYRINGE IVF (15:08)
[2023-07-31 09:17] LABS: Appearance Urine Clear (Clear); Bilirubin Urine Negative (Negative); Blood Urine Negative (Negative); Color Urine Yellow (Yellow); Glucose Urine Negative (Negative); Ketones Urine Negative (Negative); Leukocyte Esterase Urine Negative (Negative); Nitrite Urine Negative (Negative); Protein Urine Negative (Negative); Specific Gravity Urine >= 1.030 (1.000-1.030); Urobilinogen Urine 0.2 (0.2-1.0); pH Urine 5.5 (5.0-8.5)
--- NOTE | 2023-07-31 16:23 | ONC.NURNOTE ---
Christie left a message to call him today. I called his number and his phone would not take verbal messages.
[2023-08-01 13:55] VITALS: BP 175/95; PULSE 55; RESP 16; TEMP 36; O2SAT 98
[2023-08-01] MEDS: HEPARIN 500 UNIT/5 ML SYRINGE IVF (13:56)
[2023-08-01] MEDS: SODIUM CHLORIDE 0.9 % (FLUSH) 10 ML SYRINGE IVF (13:56)
[2023-08-12] MEDS: SODIUM CHLORIDE 0.9 % (FLUSH) 10 ML SYRINGE IVF ×2 (08:49→10:38)
[2023-08-12 08:56] LABS: Basophils Absolute Auto 0.05 K/uL (0.00-0.30); Basophils Percent Auto 0.7 % (0.0-3.0); Eosinophils Absolute Auto 0.45 K/uL (0.00-0.50); Eosinophils Percent Auto 6.7 % (0.0-7.0); Hematocrit 43.5 % (33.0-51.0); Hemoglobin* 14.3 gm/dL (12.0-16.0); Immature Granulocytes Abs Auto 0.02 K/uL (0.00-0.30); Immature Granulocytes Pct Auto 0.3 %; Lymphocytes Absolute Auto 2.08 K/uL (0.90-2.90); Lymphocytes Percent Auto 30.8 % (20-44); Mean Corpuscular HGB Conc 33 gm/dL (32-36); Mean Corpuscular Hemoglobin 34 pg (26-34); Mean Corpuscular Volume 104 fL (80-100); Monocytes Percent Auto 11.6 % (0.0-11.0); Neutrophils Absolute Auto 3.37 K/uL (1.7-7.0); Neutrophils Percent Auto 49.9 % (42.0-72.0); Platelet Count* 189 K/uL (140-440); RDW Coefficient of Variation % 15.3 % (11.5-15.5); Red Blood Count 4.19 m/uL (4.00-5.20); Slide Review Reflex No; White Blood Count* 6.75 K/uL (4.50-11.00)
[2023-08-12 09:11] LABS: Albumin* 4.1 g/dL (3.3-5.0); Chloride* 106 mmol/L (96-114)
[2023-08-12 09:12] LABS: Potassium* 3.8 mmol/L (3.6-5.1); Sodium* 138 mmol/L (135-149)
[2023-08-12 09:14] LABS: Alanine Aminotransferase* 27 U/L (4-35); Alkaline Phosphatase* 85 U/L (40-150); Anion Gap 7 mEq/L (7-15); Aspartate Amino Transferase* 24 U/L (12-35); Bilirubin Total* 0.5 mg/dL (0.1-1.5); Blood Urea Nitrogen* 12 mg/dL (7-30); Carbon Dioxide* 25 mmol/L (20-32); Creatinine* 0.8 mg/dL (0.5-1.5); Estimated Glomerular Filt Rate 76 ml/min; Glucose* 119 mg/dL (60-115); Total Protein* 6.5 g/dL (6.0-8.3)
[2023-08-12 09:15] LABS: Calcium* 9.2 mg/dL (8.4-10.6)
[2023-08-12 09:22] LABS: Total Protein Urine < 5 mg/dL
[2023-08-12 09:27] LABS: Creatinine Urine 105.1 mg/dL
[2023-08-12] MEDS: 0.9 % SODIUM CHLORIDE 250 ml IV (10:38)
[2023-08-12] MEDS: PROCHLORPERAZINE 5 MG/ML VIAL 10 MG IV (11:15)
[2023-08-12] MEDS: dexAMETHasone 10 MG in 0.9 % SODIUM CHLORIDE 100 ml 100 ML 400 MG IVPB (11:16)
[2023-08-12] MEDS: LEUCOVORIN CALCIUM 100 MG, TUBING SECONDARY 1 EACH in 5 % DEXTROSE 250 ML 250 ML 510 MG IV (11:38)
[2023-08-14 12:00] VITALS: BP 150/88; RESP 14; TEMP 36.1; O2SAT 96
[2023-08-14] MEDS: HEPARIN 500 UNIT/5 ML SYRINGE IVF (13:23)
[2023-08-14] MEDS: SODIUM CHLORIDE 0.9 % (FLUSH) 10 ML SYRINGE IVF (13:24)
[2023-08-27 09:59] VITALS: BP 178/92; PULSE 56; RESP 18; TEMP 36.2; O2SAT 98
[2023-08-27 10:33] LABS: Basophils Absolute Auto 0.06 K/uL (0.00-0.30); Basophils Percent Auto 0.8 % (0.0-3.0); Eosinophils Absolute Auto 0.44 K/uL (0.00-0.50); Eosinophils Percent Auto 6.2 % (0.0-7.0); Hematocrit 42.4 % (33.0-51.0); Immature Granulocytes Abs Auto 0.01 K/uL (0.00-0.30); Immature Granulocytes Pct Auto 0.1 %; Lymphocytes Absolute Auto 1.93 K/uL (0.90-2.90); Lymphocytes Percent Auto 27.1 % (20-44); Mean Corpuscular HGB Conc 33 gm/dL (32-36); Mean Corpuscular Hemoglobin 35 pg (26-34); Mean Corpuscular Volume 104 fL (80-100); Monocytes Percent Auto 13.5 % (0.0-11.0); Neutrophils Absolute Auto 3.73 K/uL (1.7-7.0); Neutrophils Percent Auto 52.3 % (42.0-72.0); Platelet Count* 160 K/uL (140-440); RDW Coefficient of Variation % 15.3 % (11.5-15.5); Red Blood Count 4.06 m/uL (4.00-5.20); White Blood Count* 7.13 K/uL (4.50-11.00)
[2023-08-27 10:57] LABS: Chloride* 107 mmol/L (96-114)
[2023-08-27 10:58] LABS: Sodium* 138 mmol/L (135-149)
[2023-08-27 11:00] LABS: Creatinine* 0.7 mg/dL (0.5-1.5); Estimated Glomerular Filt Rate 90 ml/min
[2023-08-27] MEDS: SODIUM CHLORIDE 0.9 % (FLUSH) 10 ML SYRINGE IVF ×2 (11:00→14:01)
[2023-08-27 11:01] LABS: Alanine Aminotransferase* 26 U/L (4-35); Alkaline Phosphatase* 103 U/L (40-150); Anion Gap 5 mEq/L (7-15); Aspartate Amino Transferase* 27 U/L (12-35); Bilirubin Total* 0.7 mg/dL (0.1-1.5); Blood Urea Nitrogen* 10 mg/dL (7-30); Carbon Dioxide* 26 mmol/L (20-32); Glucose* 111 mg/dL (60-115); Total Protein* 6.8 g/dL (6.0-8.3)
[2023-08-27 11:15] LABS: Total Protein Urine < 5 mg/dL
[2023-08-27 11:16] LABS: Creatinine Urine 140.2 mg/dL
[2023-08-27 11:18] LABS: Slide Review Reflex No
[2023-08-27] MEDS: 0.9 % SODIUM CHLORIDE 250 ml IV (12:15)
[2023-08-27] MEDS: dexAMETHasone 10 MG in 0.9 % SODIUM CHLORIDE 100 ml 100 ML 420 MG IVPB (12:37)
[2023-08-27] MEDS: PROCHLORPERAZINE 5 MG/ML VIAL 10 MG IV (12:37)
[2023-08-27] MEDS: LEUCOVORIN CALCIUM 100 MG, TUBING SECONDARY 1 EACH in 5 % DEXTROSE 250 ML 250 ML 510 MG IV (13:01)
[2023-08-29] MEDS: HEPARIN 500 UNIT/5 ML SYRINGE IVF (12:01)
[2023-08-29] MEDS: SODIUM CHLORIDE 0.9 % (FLUSH) 10 ML SYRINGE IVF (12:01)
[2023-08-29 12:03] VITALS: BP 175/80; PULSE 56; RESP 16; TEMP 36; O2SAT 100
[2023-09-18] MEDS: ALTEPLASE 2 MG INJ IVF (08:46)
[2023-09-18 08:55] LABS: Basophils Absolute Auto 0.03 K/uL (0.00-0.30); Basophils Percent Auto 0.5 % (0.0-3.0); Eosinophils Absolute Auto 0.42 K/uL (0.00-0.50); Hematocrit 44.7 % (33.0-51.0); Hemoglobin* 14.4 gm/dL (12.0-16.0); Immature Granulocytes Abs Auto 0.01 K/uL (0.00-0.30); Immature Granulocytes Pct Auto 0.2 %; Lymphocytes Absolute Auto 1.97 K/uL (0.90-2.90); Mean Corpuscular HGB Conc 32 gm/dL (32-36); Mean Corpuscular Hemoglobin 34 pg (26-34); Mean Corpuscular Volume 106 fL (80-100); Monocytes Percent Auto 13.4 % (0.0-11.0); Neutrophils Absolute Auto 2.74 K/uL (1.7-7.0); Neutrophils Percent Auto 45.9 % (42.0-72.0); Platelet Count* 156 K/uL (140-440); RDW Coefficient of Variation % 14.5 % (11.5-15.5); Red Blood Count 4.23 m/uL (4.00-5.20); White Blood Count* 5.97 K/uL (4.50-11.00)
[2023-09-18 09:05] LABS: Slide Review Reflex No
[2023-09-18 09:10] LABS: Albumin* 4.4 g/dL (3.3-5.0)
[2023-09-18 09:11] LABS: Chloride* 103 mmol/L (96-114); Potassium* 4.2 mmol/L (3.6-5.1); Sodium* 138 mmol/L (135-149)
[2023-09-18 09:13] LABS: Anion Gap 9 mEq/L (7-15); Aspartate Amino Transferase* 28 U/L (12-35); Bilirubin Total* 0.6 mg/dL (0.1-1.5); Carbon Dioxide* 26 mmol/L (20-32); Creatinine* 0.8 mg/dL (0.5-1.5); Estimated Glomerular Filt Rate 76 ml/min; Total Protein* 6.7 g/dL (6.0-8.3)
[2023-09-18 09:14] LABS: Alanine Aminotransferase* 26 U/L (4-35); Alkaline Phosphatase* 97 U/L (40-150); Blood Urea Nitrogen* 11 mg/dL (7-30); Calcium* 9.5 mg/dL (8.4-10.6); Glucose* 109 mg/dL (60-115)
[2023-09-18 09:39] LABS: Total Protein Urine < 5 mg/dL
[2023-09-18 09:41] LABS: Creatinine Urine 139.9 mg/dL; Protein Creatinine Ratio Urine 0.04 (0-0.19)
[2023-09-18] MEDS: dexAMETHasone 10 MG in 0.9 % SODIUM CHLORIDE 100 ml 100 ML 404 MG IVPB (10:55)
[2023-09-18] MEDS: PROCHLORPERAZINE 5 MG/ML VIAL 10 MG IV (10:56)
[2023-09-18] MEDS: LEUCOVORIN CALCIUM 100 MG, TUBING SECONDARY 1 EACH in 5 % DEXTROSE 250 ML 250 ML 510 MG IV (11:20)
[2023-09-20 10:31] VITALS: BP 146/77; PULSE 55; RESP 16; TEMP 35.4; O2SAT 97
[2023-09-20] MEDS: HEPARIN 500 UNIT/5 ML SYRINGE IVF (10:53)
[2023-09-20] MEDS: SODIUM CHLORIDE 0.9 % (FLUSH) 10 ML SYRINGE IVF (10:53)
--- NOTE | 2023-10-01 08:23 | ONC.NURNOTE ---
It was noted that patient is scheduled for chemotherapy on 10/06, but due tomorrow. Call was made to patient and she and spouse note that she has appointments in [place] on 10/14 and 10/15 and would like to leave appointment on 10/06 if possible. Appointment left for next Saturday.
[2023-10-07] MEDS: SODIUM CHLORIDE 0.9 % (FLUSH) 10 ML SYRINGE IVF ×2 (10:30→12:53)
[2023-10-07 10:38] VITALS: BP 163/90; PULSE 50; RESP 16; TEMP 35.7; O2SAT 99
[2023-10-07 10:38] LABS: Basophils Absolute Auto 0.05 K/uL (0.00-0.30); Basophils Percent Auto 0.9 % (0.0-3.0); Eosinophils Absolute Auto 0.35 K/uL (0.00-0.50); Eosinophils Percent Auto 6.2 % (0.0-7.0); Hematocrit 42.5 % (33.0-51.0); Hemoglobin* 13.9 gm/dL (12.0-16.0); Immature Granulocytes Abs Auto 0.01 K/uL (0.00-0.30); Immature Granulocytes Pct Auto 0.2 %; Lymphocytes Absolute Auto 1.51 K/uL (0.90-2.90); Lymphocytes Percent Auto 26.6 % (20-44); Mean Corpuscular HGB Conc 33 gm/dL (32-36); Mean Corpuscular Hemoglobin 34 pg (26-34); Mean Corpuscular Volume 105 fL (80-100); Monocytes Percent Auto 15.3 % (0.0-11.0); Neutrophils Absolute Auto 2.89 K/uL (1.7-7.0); Neutrophils Percent Auto 50.8 % (42.0-72.0); Platelet Count* 140 K/uL (140-440); RDW Coefficient of Variation % 14.2 % (11.5-15.5); Red Blood Count 4.04 m/uL (4.00-5.20); White Blood Count* 5.68 K/uL (4.50-11.00)
[2023-10-07 10:40] LABS: Slide Review Reflex No
[2023-10-07 10:52] LABS: Albumin* 3.9 g/dL (3.3-5.0); Chloride* 106 mmol/L (96-114); Potassium* 4.4 mmol/L (3.6-5.1); Sodium* 138 mmol/L (135-149)
[2023-10-07 10:54] LABS: Anion Gap 6 mEq/L (7-15); Aspartate Amino Transferase* 24 U/L (12-35); Bilirubin Total* 0.5 mg/dL (0.1-1.5); Carbon Dioxide* 26 mmol/L (20-32); Creatinine* 0.7 mg/dL (0.5-1.5); Estimated Glomerular Filt Rate 90 ml/min; Total Protein Urine < 5 mg/dL; Total Protein* 6.3 g/dL (6.0-8.3)
[2023-10-07 10:55] LABS: Alanine Aminotransferase* 20 U/L (4-35); Alkaline Phosphatase* 86 U/L (40-150); Blood Urea Nitrogen* 14 mg/dL (7-30); Calcium* 9.2 mg/dL (8.4-10.6); Glucose* 101 mg/dL (60-115)
[2023-10-07 10:57] LABS: Creatinine Urine 153.3 mg/dL; Protein Creatinine Ratio Urine 0.03 (0-0.19)
[2023-10-07] MEDS: PROCHLORPERAZINE 5 MG/ML VIAL 10 MG IV (11:55)
[2023-10-07] MEDS: dexAMETHasone 10 MG in 0.9 % SODIUM CHLORIDE 100 ml 100 ML 420 MG IVPB (11:55)
[2023-10-07] MEDS: LEUCOVORIN CALCIUM 100 MG, TUBING SECONDARY 1 EACH in 5 % DEXTROSE 250 ML 250 ML 510 MG IV (12:18)
[2023-10-07] MEDS: 0.9 % SODIUM CHLORIDE 250 ml IV (12:53)
[2023-10-09 12:16] VITALS: BP 150/80; PULSE 58; TEMP 35.2; O2SAT 98
[2023-10-09] MEDS: SODIUM CHLORIDE 0.9 % (FLUSH) 10 ML SYRINGE IVF (13:27)
[2023-10-09] MEDS: HEPARIN 500 UNIT/5 ML SYRINGE IVF (13:27)
[2023-10-21 09:46] VITALS: BP 155/77; PULSE 59; RESP 19; TEMP 37; O2SAT 98
[2023-10-21 10:11] LABS: Basophils Absolute Auto 0.06 K/uL (0.00-0.30); Basophils Percent Auto 0.8 % (0.0-3.0); Eosinophils Absolute Auto 0.36 K/uL (0.00-0.50); Hemoglobin* 13.9 gm/dL (12.0-16.0); Immature Granulocytes Abs Auto 0.01 K/uL (0.00-0.30); Immature Granulocytes Pct Auto 0.1 %; Lymphocytes Absolute Auto 1.59 K/uL (0.90-2.90); Lymphocytes Percent Auto 22.1 % (20-44); Mean Corpuscular HGB Conc 32 gm/dL (32-36); Mean Corpuscular Hemoglobin 34 pg (26-34); Mean Corpuscular Volume 105 fL (80-100); Platelet Count* 142 K/uL (140-440); RDW Coefficient of Variation % 14.3 % (11.5-15.5); Red Blood Count 4.09 m/uL (4.00-5.20); White Blood Count* 7.21 K/uL (4.50-11.00)
[2023-10-21 10:14] LABS: Slide Review Reflex No
[2023-10-21 10:27] LABS: Chloride* 106 mmol/L (96-114); Sodium* 138 mmol/L (135-149)
[2023-10-21 10:29] LABS: Anion Gap 6 mEq/L (7-15); Aspartate Amino Transferase* 25 U/L (12-35); Bilirubin Total* 0.4 mg/dL (0.1-1.5); Carbon Dioxide* 26 mmol/L (20-32); Creatinine* 0.7 mg/dL (0.5-1.5); Estimated Glomerular Filt Rate 90 ml/min
[2023-10-21 10:30] LABS: Alanine Aminotransferase* 22 U/L (4-35); Alkaline Phosphatase* 96 U/L (40-150); Blood Urea Nitrogen* 11 mg/dL (7-30); Calcium* 9.1 mg/dL (8.4-10.6); Glucose* 111 mg/dL (60-115); Total Protein* 6.3 g/dL (6.0-8.3)
[2023-10-21 11:34] LABS: Total Protein Urine < 5 mg/dL
[2023-10-21 11:37] VITALS: BP 150/74; PULSE 55
[2023-10-21 11:37] LABS: Creatinine Urine 86.8 mg/dL; Protein Creatinine Ratio Urine 0.06 (0-0.19)
[2023-10-21] MEDS: PROCHLORPERAZINE 5 MG/ML VIAL 10 MG IV (12:54)
[2023-10-21] MEDS: dexAMETHasone 10 MG in 0.9 % SODIUM CHLORIDE 100 ml 100 ML 400 MG IVPB (13:00)
[2023-10-21] MEDS: LEUCOVORIN CALCIUM 100 MG, TUBING SECONDARY 1 EACH in 5 % DEXTROSE 250 ML 250 ML 510 MG IV (13:25)
[2023-10-21] MEDS: 0.9 % SODIUM CHLORIDE 250 ml IV (13:32)
[2023-10-21] MEDS: SODIUM CHLORIDE 0.9 % (FLUSH) 10 ML SYRINGE IVF (13:32)
--- NOTE | 2023-10-21 13:34 | ONC.NURNOTE ---
Rechecked BP- 150/74. Ok to treat per Carol Stephen PA-C. Pt seen in clinic.
[2023-10-23 13:34] VITALS: BP 150/68; PULSE 56; RESP 16; TEMP 36; O2SAT 96
[2023-10-23] MEDS: SODIUM CHLORIDE 0.9 % (FLUSH) 10 ML SYRINGE IVF (13:37)
[2023-10-23] MEDS: HEPARIN 500 UNIT/5 ML SYRINGE IVF (13:37)
[2023-11-05] MEDS: SODIUM CHLORIDE 0.9 % (FLUSH) 10 ML SYRINGE IVF ×2 (09:39→10:50)
[2023-11-05 09:52] LABS: Basophils Absolute Auto 0.05 K/uL (0.00-0.30); Basophils Percent Auto 0.7 % (0.0-3.0); Eosinophils Percent Auto 3.9 % (0.0-7.0); Hematocrit 43.4 % (33.0-51.0); Hemoglobin* 14.3 gm/dL (12.0-16.0); Immature Granulocytes Abs Auto 0.01 K/uL (0.00-0.30); Immature Granulocytes Pct Auto 0.1 %; Lymphocytes Absolute Auto 1.62 K/uL (0.90-2.90); Lymphocytes Percent Auto 21.3 % (20-44); Mean Corpuscular HGB Conc 33 gm/dL (32-36); Mean Corpuscular Hemoglobin 34 pg (26-34); Mean Corpuscular Volume 104 fL (80-100); Monocytes Percent Auto 12.5 % (0.0-11.0); Neutrophils Absolute Auto 4.69 K/uL (1.7-7.0); Neutrophils Percent Auto 61.5 % (42.0-72.0); Platelet Count* 132 K/uL (140-440); RDW Coefficient of Variation % 14.5 % (11.5-15.5); Red Blood Count 4.16 m/uL (4.00-5.20); White Blood Count* 7.62 K/uL (4.50-11.00)
[2023-11-05 09:55] LABS: Slide Review Reflex No
[2023-11-05 10:08] LABS: Albumin* 4.1 g/dL (3.3-5.0)
[2023-11-05 10:09] LABS: Chloride* 106 mmol/L (96-114); Sodium* 138 mmol/L (135-149)
[2023-11-05 10:11] LABS: Anion Gap 7 mEq/L (7-15); Aspartate Amino Transferase* 27 U/L (12-35); Bilirubin Total* 0.6 mg/dL (0.1-1.5); Carbon Dioxide* 25 mmol/L (20-32); Creatinine* 0.7 mg/dL (0.5-1.5); Estimated Glomerular Filt Rate 90 ml/min
[2023-11-05 10:12] LABS: Alanine Aminotransferase* 21 U/L (4-35); Alkaline Phosphatase* 83 U/L (40-150); Blood Urea Nitrogen* 10 mg/dL (7-30); Calcium* 9.2 mg/dL (8.4-10.6); Glucose* 113 mg/dL (60-115); Total Protein* 6.4 g/dL (6.0-8.3)
[2023-11-05 10:13] LABS: Total Protein Urine < 5 mg/dL
[2023-11-05 10:14] LABS: Creatinine Urine 116.9 mg/dL; Protein Creatinine Ratio Urine 0.04 (0-0.19)
[2023-11-05] MEDS: 0.9 % SODIUM CHLORIDE 250 ml IV (10:51)
[2023-11-05] MEDS: PROCHLORPERAZINE 5 MG/ML VIAL 10 MG IV (11:10)
[2023-11-05] MEDS: dexAMETHasone 10 MG in 0.9 % SODIUM CHLORIDE 100 ml 100 ML 404 MG IVPB (11:13)
[2023-11-05] MEDS: LEUCOVORIN CALCIUM 100 MG, TUBING SECONDARY 1 EACH in 5 % DEXTROSE 250 ML 250 ML 510 MG IV (12:09)
[2023-11-07] MEDS: HEPARIN 500 UNIT/5 ML SYRINGE IVF (11:29)
[2023-11-07] MEDS: SODIUM CHLORIDE 0.9 % (FLUSH) 10 ML SYRINGE IVF (11:29)
[2023-11-07 11:30] VITALS: BP 161/87; PULSE 57; RESP 14; TEMP 36.3; O2SAT 97
[2023-11-19] MEDS: SODIUM CHLORIDE 0.9 % (FLUSH) 10 ML SYRINGE IVF ×2 (10:15→13:13)
[2023-11-19 10:23] VITALS: BP 147/87; PULSE 55; RESP 16; TEMP 35.8; O2SAT 98
[2023-11-19 10:26] LABS: Basophils Absolute Auto 0.07 K/uL (0.00-0.30); Basophils Percent Auto 0.9 % (0.0-3.0); Eosinophils Absolute Auto 0.38 K/uL (0.00-0.50); Eosinophils Percent Auto 4.7 % (0.0-7.0); Hematocrit 42.9 % (33.0-51.0); Hemoglobin* 14.2 gm/dL (12.0-16.0); Immature Granulocytes Abs Auto 0.02 K/uL (0.00-0.30); Immature Granulocytes Pct Auto 0.2 %; Lymphocytes Absolute Auto 1.81 K/uL (0.90-2.90); Lymphocytes Percent Auto 22.3 % (20-44); Mean Corpuscular HGB Conc 33 gm/dL (32-36); Mean Corpuscular Hemoglobin 35 pg (26-34); Mean Corpuscular Volume 104 fL (80-100); Monocytes Percent Auto 12.5 % (0.0-11.0); Neutrophils Absolute Auto 4.82 K/uL (1.7-7.0); Neutrophils Percent Auto 59.4 % (42.0-72.0); Platelet Count* 156 K/uL (140-440); RDW Coefficient of Variation % 14.5 % (11.5-15.5); Red Blood Count 4.12 m/uL (4.00-5.20); Slide Review Reflex No; White Blood Count* 8.11 K/uL (4.50-11.00)
[2023-11-19 10:37] LABS: Albumin* 4.1 g/dL (3.3-5.0); Chloride* 105 mmol/L (96-114); Potassium* 4.1 mmol/L (3.6-5.1); Sodium* 138 mmol/L (135-149)
[2023-11-19 10:39] LABS: Creatinine* 0.8 mg/dL (0.5-1.5); Estimated Glomerular Filt Rate 76 ml/min
[2023-11-19 10:40] LABS: Alanine Aminotransferase* 21 U/L (4-35); Alkaline Phosphatase* 92 U/L (40-150); Anion Gap 7 mEq/L (7-15); Aspartate Amino Transferase* 25 U/L (12-35); Bilirubin Total* 0.4 mg/dL (0.1-1.5); Blood Urea Nitrogen* 11 mg/dL (7-30); Calcium* 9.2 mg/dL (8.4-10.6); Carbon Dioxide* 26 mmol/L (20-32); Glucose* 106 mg/dL (60-115); Total Protein* 6.5 g/dL (6.0-8.3)
[2023-11-19 10:41] LABS: Total Protein Urine < 5 mg/dL
[2023-11-19 10:42] LABS: Creatinine Urine 96.2 mg/dL; Protein Creatinine Ratio Urine 0.05 (0-0.19)
[2023-11-19] MEDS: 0.9 % SODIUM CHLORIDE 250 ml IV (11:34)
[2023-11-19] MEDS: PROCHLORPERAZINE 5 MG/ML VIAL 10 MG IV (11:35)
[2023-11-19] MEDS: dexAMETHasone 10 MG in 0.9 % SODIUM CHLORIDE 100 ml 100 ML 400 MG IVPB (11:41)
[2023-11-19] MEDS: LEUCOVORIN CALCIUM 100 MG, TUBING SECONDARY 1 EACH in 5 % DEXTROSE 250 ML 250 ML 510 MG IV (12:36)
[2023-11-21 11:26] VITALS: BP 169/83; PULSE 54; RESP 16; TEMP 36.4; O2SAT 97
[2023-11-21] MEDS: SODIUM CHLORIDE 0.9 % (FLUSH) 10 ML SYRINGE IVF (11:42)
[2023-11-21] MEDS: HEPARIN 500 UNIT/5 ML SYRINGE IVF (11:42)
[2023-12-03 10:09] VITALS: BP 135/77; PULSE 58; RESP 16; TEMP 35.7; O2SAT 99
[2023-12-03] MEDS: SODIUM CHLORIDE 0.9 % (FLUSH) 10 ML SYRINGE IVF ×2 (10:20→13:14)
[2023-12-03 10:37] LABS: Basophils Absolute Auto 0.06 K/uL (0.00-0.30); Basophils Percent Auto 0.7 % (0.0-3.0); Eosinophils Absolute Auto 0.39 K/uL (0.00-0.50); Eosinophils Percent Auto 4.8 % (0.0-7.0); Hematocrit 41.8 % (33.0-51.0); Hemoglobin* 13.7 gm/dL (12.0-16.0); Immature Granulocytes Abs Auto 0.02 K/uL (0.00-0.30); Immature Granulocytes Pct Auto 0.2 %; Lymphocytes Absolute Auto 1.64 K/uL (0.90-2.90); Lymphocytes Percent Auto 20.2 % (20-44); Mean Corpuscular HGB Conc 33 gm/dL (32-36); Mean Corpuscular Hemoglobin 34 pg (26-34); Mean Corpuscular Volume 104 fL (80-100); Monocytes Percent Auto 11.3 % (0.0-11.0); Neutrophils Absolute Auto 5.08 K/uL (1.7-7.0); Neutrophils Percent Auto 62.8 % (42.0-72.0); Platelet Count* 154 K/uL (140-440); RDW Coefficient of Variation % 14.7 % (11.5-15.5); Red Blood Count 4.01 m/uL (4.00-5.20); White Blood Count* 8.11 K/uL (4.50-11.00)
[2023-12-03 10:38] LABS: Slide Review Reflex No
[2023-12-03 10:55] LABS: Albumin* 3.9 g/dL (3.3-5.0); Chloride* 104 mmol/L (96-114)
[2023-12-03 10:56] LABS: Potassium* 3.9 mmol/L (3.6-5.1); Sodium* 136 mmol/L (135-149)
[2023-12-03 10:58] LABS: Alanine Aminotransferase* 18 U/L (4-35); Alkaline Phosphatase* 87 U/L (40-150); Anion Gap 7 mEq/L (7-15); Aspartate Amino Transferase* 24 U/L (12-35); Bilirubin Total* 0.6 mg/dL (0.1-1.5); Blood Urea Nitrogen* 11 mg/dL (7-30); Carbon Dioxide* 25 mmol/L (20-32); Creatinine* 0.7 mg/dL (0.5-1.5); Estimated Glomerular Filt Rate 90 ml/min; Total Protein* 6.3 g/dL (6.0-8.3)
[2023-12-03 10:59] LABS: Glucose* 104 mg/dL (60-115); Total Protein Urine < 5 mg/dL
[2023-12-03 11:01] LABS: Creatinine Urine 202.6 mg/dL; Protein Creatinine Ratio Urine 0.02 (0-0.19)
[2023-12-03] MEDS: dexAMETHasone 10 MG in 0.9 % SODIUM CHLORIDE 100 ml 100 ML 402 MG IVPB (12:15)
[2023-12-03] MEDS: 0.9 % SODIUM CHLORIDE 250 ml IV (12:30)
[2023-12-03] MEDS: PROCHLORPERAZINE 5 MG/ML VIAL 10 MG IV (12:35)
[2023-12-03] MEDS: LEUCOVORIN CALCIUM 100 MG, TUBING SECONDARY 1 EACH in 5 % DEXTROSE 250 ML 250 ML 510 MG IV (12:39)
--- NOTE | 2023-12-03 15:15 | URNOTE ---
Request received for authorization for Zirabev ([id number]), Leucovorin ([id number]), Fluorouracil ([id number]). Prior authorization is not required as services are based on medical necessity and follow Medicare guidelines.
[2023-12-05 11:39] VITALS: BP 148/74; PULSE 56; RESP 16; TEMP 36; O2SAT 97
[2023-12-05] MEDS: SODIUM CHLORIDE 0.9 % (FLUSH) 10 ML SYRINGE IVF (12:02)
[2023-12-05] MEDS: HEPARIN 500 UNIT/5 ML SYRINGE IVF (12:02)
[2023-12-17 10:29] LABS: Total Protein Urine 5 mg/dL
[2023-12-17 10:30] LABS: Creatinine Urine 98.3 mg/dL; Protein Creatinine Ratio Urine 0.05 (0-0.19)
[2023-12-17] MEDS: PROCHLORPERAZINE 5 MG/ML VIAL 10 MG IV (12:26)
[2023-12-17] MEDS: dexAMETHasone 10 MG in 0.9 % SODIUM CHLORIDE 100 ml 100 ML 404 MG IVPB (12:29)
[2023-12-17] MEDS: LEUCOVORIN CALCIUM 100 MG, TUBING SECONDARY 1 EACH in 5 % DEXTROSE 250 ML 250 ML 510 MG IV (12:48)
[2023-12-19 11:43] VITALS: BP 150/77; PULSE 52; RESP 16; TEMP 35.6; O2SAT 97
[2023-12-19] MEDS: SODIUM CHLORIDE 0.9 % (FLUSH) 10 ML SYRINGE IVF (11:56)
[2023-12-19] MEDS: HEPARIN 500 UNIT/5 ML SYRINGE IVF (11:56)
--- NOTE | 2023-12-25 12:25 | URNOTE ---
Request received for authorization for Wilbert ([id number]). Prior authorization is not required as services are based on medical necessity and follow Medicare guidelines.
== END 2023-12-29 23:59 | disposition home or self-care (01) ==
LOC: CCIC 11:00
PROVIDERS: Clinical Nurse Specialist; PCP Family Medicine; Referring Provider Family Medicine; Visit Provider Internal Medicine Hematology & Oncology
DX: C20 Malignant neoplasm of rectum (principal)
CPT/HCPCS: 36415; 36591; 80053; 81003; 82570; 84156; 85025; 93971; 96365; 96366; 96374; 96376; 96413; 96415; 96416; 96417; 99211; 99213; 99214; 99215; G0463; J0640; J0780; J1100; J1642; J2997; J7050; J9190; Q5118

== ENCOUNTER 2024-06-18 13:00 | Outpatient (RCR) | payer MEDICARE, SELFPAY ==
[2023-12-31 10:30] VITALS: BP 155/84; PULSE 58; RESP 18; TEMP 35.6; O2SAT 97
[2023-12-31 10:39] LABS: Basophils Absolute Auto 0.06 K/uL (0.00-0.30); Basophils Percent Auto 0.8 % (0.0-3.0); Eosinophils Absolute Auto 0.44 K/uL (0.00-0.50); Hematocrit 42.8 % (33.0-51.0); Hemoglobin* 13.9 gm/dL (12.0-16.0); Immature Granulocytes Abs Auto 0.01 K/uL (0.00-0.30); Immature Granulocytes Pct Auto 0.1 %; Lymphocytes Absolute Auto 1.49 K/uL (0.90-2.90); Lymphocytes Percent Auto 20.3 % (20-44); Mean Corpuscular HGB Conc 33 gm/dL (32-36); Mean Corpuscular Hemoglobin 34 pg (26-34); Mean Corpuscular Volume 104 fL (80-100); Monocytes Percent Auto 12.8 % (0.0-11.0); Neutrophils Absolute Auto 4.41 K/uL (1.7-7.0); Platelet Count* 155 K/uL (140-440); RDW Coefficient of Variation % 15.2 % (11.5-15.5); White Blood Count* 7.35 K/uL (4.50-11.00)
[2023-12-31 10:52] LABS: Slide Review Reflex No
[2023-12-31 11:22] LABS: Chloride* 104 mmol/L (96-114)
[2023-12-31 11:23] LABS: Potassium* 4.1 mmol/L (3.6-5.1); Sodium* 137 mmol/L (135-149)
[2023-12-31 11:25] LABS: Anion Gap 8 mEq/L (7-15); Bilirubin Total* 0.4 mg/dL (0.1-1.5); Carbon Dioxide* 25 mmol/L (20-32); Creatinine* 0.8 mg/dL (0.5-1.5); Estimated Glomerular Filt Rate 76 ml/min; Total Protein Urine < 5 mg/dL; Total Protein* 6.5 g/dL (6.0-8.3)
[2023-12-31 11:26] LABS: Alanine Aminotransferase* 18 U/L (4-35); Alkaline Phosphatase* 107 U/L (40-150); Aspartate Amino Transferase* 25 U/L (12-35); Blood Urea Nitrogen* 14 mg/dL (7-30); Calcium* 9.2 mg/dL (8.4-10.6); Creatinine Urine 94.1 mg/dL; Glucose* 101 mg/dL (60-115); Protein Creatinine Ratio Urine 0.05 (0-0.19)
[2023-12-31] MEDS: SODIUM CHLORIDE 0.9 % (FLUSH) 10 ML SYRINGE IVF ×2 (11:42→13:47)
[2023-12-31] MEDS: 0.9 % SODIUM CHLORIDE 250 ml IV (11:42)
[2023-12-31] MEDS: dexAMETHasone 10 MG in 0.9 % SODIUM CHLORIDE 100 ml 100 ML 400 MG IVPB (12:41)
[2023-12-31] MEDS: PROCHLORPERAZINE 5 MG/ML VIAL 10 MG IV (12:41)
[2023-12-31] MEDS: LEUCOVORIN CALCIUM 100 MG, TUBING SECONDARY 1 EACH in 5 % DEXTROSE 250 ML 250 ML 510 MG IV (13:03)
[2024-01-02 12:00] VITALS: BP 147/79; PULSE 61; RESP 16; O2SAT 97
[2024-01-02] MEDS: 0.9 % SODIUM CHLORIDE 250 ml IV (12:10)
[2024-01-02] MEDS: HEPARIN 500 UNIT/5 ML SYRINGE IVF (12:10)
[2024-01-13] MEDS: SODIUM CHLORIDE 0.9 % (FLUSH) 10 ML SYRINGE IVF (13:45)
[2024-01-13] MEDS: HEPARIN 500 UNIT/5 ML SYRINGE IVF (13:45)
[2024-01-13 13:59] LABS: Basophils Absolute Auto 0.05 K/uL (0.00-0.30); Basophils Percent Auto 0.6 % (0.0-3.0); Eosinophils Absolute Auto 0.38 K/uL (0.00-0.50); Eosinophils Percent Auto 4.7 % (0.0-7.0); Hematocrit 41.7 % (33.0-51.0); Hemoglobin* 13.8 gm/dL (12.0-16.0); Immature Granulocytes Abs Auto 0.01 K/uL (0.00-0.30); Immature Granulocytes Pct Auto 0.1 %; Lymphocytes Percent Auto 19.2 % (20-44); Mean Corpuscular HGB Conc 33 gm/dL (32-36); Mean Corpuscular Hemoglobin 35 pg (26-34); Mean Corpuscular Volume 105 fL (80-100); Monocytes Percent Auto 12.4 % (0.0-11.0); Neutrophils Absolute Auto 5.08 K/uL (1.7-7.0); Platelet Count* 143 K/uL (140-440); RDW Coefficient of Variation % 15.6 % (11.5-15.5); Red Blood Count 3.99 m/uL (4.00-5.20); Slide Review Reflex No; White Blood Count* 8.07 K/uL (4.50-11.00)
[2024-01-13 14:31] LABS: Chloride* 103 mmol/L (96-114)
[2024-01-13 14:32] LABS: Potassium* 4.1 mmol/L (3.6-5.1); Sodium* 136 mmol/L (135-149)
[2024-01-13 14:34] LABS: Alkaline Phosphatase* 103 U/L (40-150); Anion Gap 8 mEq/L (7-15); Aspartate Amino Transferase* 24 U/L (12-35); Bilirubin Total* 0.4 mg/dL (0.1-1.5); Blood Urea Nitrogen* 14 mg/dL (7-30); Carbon Dioxide* 25 mmol/L (20-32); Creatinine* 0.7 mg/dL (0.5-1.5); Estimated Glomerular Filt Rate 90 ml/min; Total Protein* 6.4 g/dL (6.0-8.3)
[2024-01-13 14:35] LABS: Alanine Aminotransferase* 19 U/L (4-35); Calcium* 9.1 mg/dL (8.4-10.6); Glucose* 117 mg/dL (60-115)
[2024-01-13 14:52] LABS: Total Protein Urine < 5 mg/dL
[2024-01-13 14:56] LABS: Creatinine Urine 189.6 mg/dL; Protein Creatinine Ratio Urine 0.03 (0-0.19)
[2024-01-14 10:12] VITALS: BP 147/84; PULSE 61; RESP 16; TEMP 36.4; O2SAT 97
[2024-01-14] MEDS: SODIUM CHLORIDE 0.9 % (FLUSH) 10 ML SYRINGE IVF (11:30)
[2024-01-14] MEDS: 0.9 % SODIUM CHLORIDE 250 ml IV (11:31)
--- NOTE | 2024-01-14 11:32 | PC.NURSE ---
Pt present at [facility] today for treatment today. Upon double checking pt's bevacizumab, 2nd RN asked about giving this drug with foot fracture healing process. Discussed with Mike Felton, PharmD, and Dr. Singer, ortho. Ultimately Dr. Singer ok'd giving drug today. He will follow-up with Christie sooner than scheduled January follow-up. That office will call pt to schedule. Dr. Mc updated.
[2024-01-14] MEDS: dexAMETHasone 10 MG in 0.9 % SODIUM CHLORIDE 100 ml 100 ML 400 MG IVPB (12:06)
[2024-01-14] MEDS: PROCHLORPERAZINE 5 MG/ML VIAL 10 MG IV (12:06)
[2024-01-14] MEDS: LEUCOVORIN CALCIUM 100 MG, TUBING SECONDARY 1 EACH in 5 % DEXTROSE 250 ML 250 ML 510 MG IV (12:30)
[2024-01-16 12:30] VITALS: BP 155/78; PULSE 57; RESP 16; TEMP 36.4; O2SAT 97
[2024-01-16] MEDS: HEPARIN 500 UNIT/5 ML SYRINGE IVF (12:34)
[2024-01-16] MEDS: SODIUM CHLORIDE 0.9 % (FLUSH) 10 ML SYRINGE IVF (12:34)
[2024-01-28 09:45] LABS: Basophils Absolute Auto 0.05 K/uL (0.00-0.30); Basophils Percent Auto 0.6 % (0.0-3.0); Eosinophils Absolute Auto 0.46 K/uL (0.00-0.50); Hematocrit 43.9 % (33.0-51.0); Hemoglobin* 14.5 gm/dL (12.0-16.0); Immature Granulocytes Abs Auto 0.01 K/uL (0.00-0.30); Immature Granulocytes Pct Auto 0.1 %; Lymphocytes Percent Auto 20.8 % (20-44); Mean Corpuscular HGB Conc 33 gm/dL (32-36); Mean Corpuscular Hemoglobin 35 pg (26-34); Mean Corpuscular Volume 105 fL (80-100); Monocytes Percent Auto 13.1 % (0.0-11.0); Neutrophils Absolute Auto 4.57 K/uL (1.7-7.0); Neutrophils Percent Auto 59.4 % (42.0-72.0); Platelet Count* 164 K/uL (140-440); RDW Coefficient of Variation % 15.4 % (11.5-15.5); Red Blood Count 4.18 m/uL (4.00-5.20)
[2024-01-28 09:56] LABS: Albumin* 4.2 g/dL (3.3-5.0); Chloride* 101 mmol/L (96-114); Potassium* 3.8 mmol/L (3.6-5.1); Sodium* 137 mmol/L (135-149)
[2024-01-28 09:58] LABS: Bilirubin Total* 0.6 mg/dL (0.1-1.5); Creatinine* 0.8 mg/dL (0.5-1.5); Estimated Glomerular Filt Rate 76 ml/min
[2024-01-28 09:59] LABS: Alanine Aminotransferase* 21 U/L (4-35); Alkaline Phosphatase* 87 U/L (40-150); Anion Gap 10 mEq/L (7-15); Aspartate Amino Transferase* 27 U/L (12-35); Blood Urea Nitrogen* 16 mg/dL (7-30); Calcium* 9.5 mg/dL (8.4-10.6); Carbon Dioxide* 26 mmol/L (20-32); Glucose* 116 mg/dL (60-115); Total Protein* 6.8 g/dL (6.0-8.3)
[2024-01-28 10:00] LABS: Slide Review Reflex No
[2024-01-28 10:05] VITALS: BP 141/82; PULSE 57; RESP 16; TEMP 35.2; O2SAT 57
[2024-01-28] MEDS: 0.9 % SODIUM CHLORIDE 500 ML 500 ML 30 ML IV (10:34)
[2024-01-28] MEDS: SODIUM CHLORIDE 0.9 % (FLUSH) 10 ML SYRINGE IVF (10:35)
[2024-01-28] MEDS: dexAMETHasone 10 MG/ML inj IVP (10:43)
[2024-01-28] MEDS: PROCHLORPERAZINE 5 MG/ML VIAL 10 MG IV (10:43)
[2024-01-28] MEDS: LEUCOVORIN CALCIUM 100 MG, TUBING SECONDARY 1 EACH in 5 % DEXTROSE 250 ML 250 ML 510 MG IV (10:43)
[2024-01-28] MEDS: CADD MED CASSETTE RESERVOIR IV (11:20)
[2024-01-28] MEDS: FLUOROURACIL IV (11:20)
--- NOTE | 2024-01-28 12:39 | PC.NURSE ---
Pt present at [facility] for infusion. Christie saw the dentist and crowns and deep cleaning is required. This is scheduled for 02/06/2024. Discussed with Dr. Mc and ordered to hold bevacizumab today and next cycle. Pt updated and agrees with this plan.
[2024-01-30 08:26] VITALS: BP 132/77; PULSE 59; RESP 16; TEMP 35.9; O2SAT 98
[2024-01-30] MEDS: HEPARIN 500 UNIT/5 ML SYRINGE IVF (08:32)
[2024-01-30] MEDS: SODIUM CHLORIDE 0.9 % (FLUSH) 10 ML SYRINGE IVF (08:32)
[2024-02-10 11:01] LABS: Basophils Absolute Auto 0.06 K/uL (0.00-0.30); Basophils Percent Auto 0.9 % (0.0-3.0); Eosinophils Percent Auto 4.5 % (0.0-7.0); Hematocrit 42.8 % (33.0-51.0); Immature Granulocytes Abs Auto 0.01 K/uL (0.00-0.30); Immature Granulocytes Pct Auto 0.1 %; Lymphocytes Absolute Auto 1.42 K/uL (0.90-2.90); Lymphocytes Percent Auto 21.2 % (20-44); Mean Corpuscular HGB Conc 33 gm/dL (32-36); Mean Corpuscular Hemoglobin 35 pg (26-34); Mean Corpuscular Volume 106 fL (80-100); Monocytes Percent Auto 13.4 % (0.0-11.0); Neutrophils Absolute Auto 4.01 K/uL (1.7-7.0); Neutrophils Percent Auto 59.9 % (42.0-72.0); Platelet Count* 166 K/uL (140-440); RDW Coefficient of Variation % 15.3 % (11.5-15.5); Red Blood Count 4.04 m/uL (4.00-5.20)
[2024-02-10 11:05] LABS: Slide Review Reflex No
[2024-02-10 11:18] LABS: Albumin* 4.1 g/dL (3.3-5.0); Chloride* 103 mmol/L (96-114)
[2024-02-10 11:19] LABS: Potassium* 3.9 mmol/L (3.6-5.1); Sodium* 137 mmol/L (135-149)
[2024-02-10 11:21] LABS: Anion Gap 8 mEq/L (7-15); Aspartate Amino Transferase* 23 U/L (12-35); Bilirubin Total* 0.3 mg/dL (0.1-1.5); Carbon Dioxide* 26 mmol/L (20-32); Creatinine* 0.8 mg/dL (0.5-1.5); Est. Creatinine Clearance* 46.54; Estimated Glomerular Filt Rate 76 ml/min; Total Protein* 6.5 g/dL (6.0-8.3)
[2024-02-10 11:22] LABS: Alanine Aminotransferase* 20 U/L (4-35); Alkaline Phosphatase* 91 U/L (40-150); Blood Urea Nitrogen* 12 mg/dL (7-30); Calcium* 9.4 mg/dL (8.4-10.6); Glucose* 111 mg/dL (60-115)
[2024-02-10 11:22] LABS: Total Protein Urine < 5 mg/dL
[2024-02-10 11:24] LABS: Creatinine Urine 145.8 mg/dL; Protein Creatinine Ratio Urine 0.03 (0-0.19)
[2024-02-11 09:13] VITALS: BP 147/84; PULSE 53; RESP 16; TEMP 36; O2SAT 98
[2024-02-11] MEDS: 0.9 % SODIUM CHLORIDE 500 ML IV (09:40)
[2024-02-11] MEDS: PROCHLORPERAZINE 5 MG/ML VIAL 10 MG IV (09:49)
[2024-02-11] MEDS: dexAMETHasone 10 MG/ML inj IVP (09:49)
[2024-02-11] MEDS: SODIUM CHLORIDE 0.9 % (FLUSH) 10 ML SYRINGE IVF ×2 (09:50→10:44)
[2024-02-11] MEDS: LEUCOVORIN CALCIUM 100 MG, TUBING SECONDARY 1 EACH in 5 % DEXTROSE 250 ML 250 ML 510 MG IV (10:03)
[2024-02-11] MEDS: CADD MED CASSETTE RESERVOIR IV (10:42)
[2024-02-11] MEDS: FLUOROURACIL IV (10:42)
--- NOTE | 2024-02-11 15:31 | ONC.NURNOTE ---
Pt requesting week of Thanksgiving off of chemotherapy due to the holiday.
[2024-02-13 08:24] VITALS: BP 157/76; PULSE 56; RESP 16; TEMP 35.9; O2SAT 98
[2024-02-13] MEDS: HEPARIN 500 UNIT/5 ML SYRINGE IVF (08:24)
[2024-02-13] MEDS: SODIUM CHLORIDE 0.9 % (FLUSH) 10 ML SYRINGE IVF (08:25)
[2024-03-03] MEDS: SODIUM CHLORIDE 0.9 % (FLUSH) 10 ML SYRINGE IVF ×3 (10:12→13:44)
[2024-03-03] MEDS: HEPARIN 500 UNIT/5 ML SYRINGE IVF (10:12)
[2024-03-03 10:13] LABS: Basophils Absolute Auto 0.06 K/uL (0.00-0.30); Basophils Percent Auto 0.9 % (0.0-3.0); Eosinophils Absolute Auto 0.31 K/uL (0.00-0.50); Eosinophils Percent Auto 4.7 % (0.0-7.0); Hematocrit 42.9 % (33.0-51.0); Immature Granulocytes Abs Auto 0.01 K/uL (0.00-0.30); Immature Granulocytes Pct Auto 0.2 %; Lymphocytes Absolute Auto 1.39 K/uL (0.90-2.90); Lymphocytes Percent Auto 21.2 % (20-44); Mean Corpuscular HGB Conc 33 gm/dL (32-36); Mean Corpuscular Hemoglobin 34 pg (26-34); Mean Corpuscular Volume 105 fL (80-100); Monocytes Percent Auto 15.7 % (0.0-11.0); Neutrophils Absolute Auto 3.76 K/uL (1.7-7.0); Neutrophils Percent Auto 57.3 % (42.0-72.0); Platelet Count* 138 K/uL (140-440); RDW Coefficient of Variation % 14.8 % (11.5-15.5); Red Blood Count 4.08 m/uL (4.00-5.20); White Blood Count* 6.56 K/uL (4.50-11.00)
[2024-03-03 10:19] LABS: Slide Review Reflex No
[2024-03-03 10:33] LABS: Chloride* 105 mmol/L (96-114)
[2024-03-03 10:34] LABS: Potassium* 3.8 mmol/L (3.6-5.1); Sodium* 138 mmol/L (135-149)
[2024-03-03 10:36] LABS: Anion Gap 7 mEq/L (7-15); Bilirubin Total* 0.5 mg/dL (0.1-1.5); Carbon Dioxide* 26 mmol/L (20-32); Creatinine* 0.7 mg/dL (0.5-1.5); Est. Creatinine Clearance* 46.54; Estimated Glomerular Filt Rate 90 ml/min; Total Protein* 6.5 g/dL (6.0-8.3)
[2024-03-03 10:37] LABS: Alanine Aminotransferase* 19 U/L (4-35); Alkaline Phosphatase* 95 U/L (40-150); Aspartate Amino Transferase* 25 U/L (12-35); Blood Urea Nitrogen* 13 mg/dL (7-30); Calcium* 9.5 mg/dL (8.4-10.6); Glucose* 118 mg/dL (60-115)
[2024-03-03 11:08] LABS: Total Protein Urine < 5 mg/dL
[2024-03-03 11:09] LABS: Creatinine Urine 156.1 mg/dL; Protein Creatinine Ratio Urine 0.03 (0-0.19)
[2024-03-03] MEDS: BEVACIZUMAB ADCD IVPB (12:04)
[2024-03-03] MEDS: [UNRECOGNIZED DRUG - OTHER] IVPB (12:04)
[2024-03-03] MEDS: TUBING SECONDARY IVPB (12:04)
[2024-03-03] MEDS: 0.9 % SODIUM CHLORIDE 500 ML IV (12:05)
--- NOTE | 2024-03-03 12:24 | URNOTE ---
Request received for authorization for Aloxi ([id number]) and Irinotecan ([id number]). Prior authorization is not required as services are based on medical necessity and follow Medicare guidelines.
[2024-03-03] MEDS: dexAMETHasone 10 MG in 0.9 % SODIUM CHLORIDE 100 ml 100 ML 400 MG IVPB (12:40)
[2024-03-03] MEDS: LEUCOVORIN CALCIUM 100 MG, TUBING SECONDARY 1 EACH in 5 % DEXTROSE 250 ML 250 ML 540 MG IV (13:01)
[2024-03-03] MEDS: FLUOROURACIL IV (13:39)
[2024-03-03] MEDS: CADD MED CASSETTE RESERVOIR IV (13:39)
[2024-03-05 11:09] VITALS: BP 125/74; PULSE 52; RESP 16; TEMP 36; O2SAT 99
[2024-03-05] MEDS: PALONOSETRON 0.25 MG/5 ML inj IV (11:56)
[2024-03-05] MEDS: dexAMETHasone 10 MG/ML inj IVP (11:58)
[2024-03-05] MEDS: PROCHLORPERAZINE 5 MG/ML VIAL IVP (14:03)
[2024-03-05] MEDS: HEPARIN 500 UNIT/5 ML SYRINGE IVF (14:15)
[2024-03-05] MEDS: SODIUM CHLORIDE 0.9 % (FLUSH) 10 ML SYRINGE IVF (14:15)
--- NOTE | 2024-03-05 15:01 | ONC.NURNOTE ---
Patient in clinic for pump DC and to restart Irinotecan. Atropine 0.25 mg given prior to start of Irinotecan and RN discussed possible side effects of Irinotecan with patient. At end of infusion patient had complaints of runny nose, watery eyes, feeling queasy, and some stomach cramping. BP checked and was 136/77. Patient requesting to use restroom. RN spoke with Thi Mckee APRN who placed orders to repeat Atropine 0.25 mg and give 5 mg IV Compazine. Medications administered, RN checked in with patient 15 minutes later and patient reports feeling better. RN reviewed anti nausea plan with patient and her as well as when to start Imodium if needed. Advised patient to call with any questions or concerns. RN will call and check in tomorrow. Patient and spouse verbalized understanding and agreeable to the plan. Atropine increase to 0.4 mg with future treatments.
--- NOTE | 2024-03-06 15:06 | ONC.NURNOTE ---
Called patient to check in after her restart of Irinotecan yesterday. Patient reports she is feeling good and the symptoms that she had at the end of her infusion have gone away. She has not needed any PRN nausea meds or Imodium. Told patient to call with any questions or concerns prior to her next appt. Patient verbalized understanding and agreeable to the plan.
[2024-03-17] MEDS: SODIUM CHLORIDE 0.9 % (FLUSH) 10 ML SYRINGE IVF ×2 (09:30→11:30)
[2024-03-17 10:27] LABS: Basophils Percent Auto 0.7 % (0.0-3.0); Eosinophils Percent Auto 7.6 % (0.0-7.0); Hematocrit 39.4 % (33.0-51.0); Hemoglobin* 13.1 gm/dL (12.0-16.0); Lymphocytes Percent Auto 45.7 % (20-44); Mean Corpuscular HGB Conc 33 gm/dL (32-36); Mean Corpuscular Hemoglobin 34 pg (26-34); Mean Corpuscular Volume 103 fL (80-100); Platelet Count* 149 K/uL (140-440); RDW Coefficient of Variation % 14.3 % (11.5-15.5); Red Blood Count 3.81 m/uL (4.00-5.20); White Blood Count* 2.91 K/uL (4.50-11.00)
[2024-03-17 10:28] VITALS: BP 138/83; PULSE 67; RESP 18; TEMP 35.6; O2SAT 99
[2024-03-17 10:38] LABS: Slide Review Reflex No
[2024-03-17 10:54] LABS: Chloride* 104 mmol/L (96-114)
[2024-03-17 10:55] LABS: Albumin* 3.8 g/dL (3.3-5.0); Potassium* 3.8 mmol/L (3.6-5.1); Sodium* 139 mmol/L (135-149)
[2024-03-17 10:58] LABS: Alanine Aminotransferase* 20 U/L (4-35); Alkaline Phosphatase* 90 U/L (40-150); Anion Gap 10 mEq/L (7-15); Aspartate Amino Transferase* 23 U/L (12-35); Bilirubin Total* 0.4 mg/dL (0.1-1.5); Blood Urea Nitrogen* 10 mg/dL (7-30); Carbon Dioxide* 25 mmol/L (20-32); Creatinine* 0.7 mg/dL (0.5-1.5); Est. Creatinine Clearance* 45.82; Estimated Glomerular Filt Rate 89 ml/min; Glucose* 113 mg/dL (60-115); Total Protein* 6.3 g/dL (6.0-8.3)
[2024-03-17 10:59] LABS: Calcium* 9.4 mg/dL (8.4-10.6)
[2024-03-17] MEDS: HEPARIN 500 UNIT/5 ML SYRINGE IVF (11:30)
--- NOTE | 2024-03-17 12:33 | PC.NURSE ---
Pt present at [facility] for labs and chemo. ANC 1,[address] Mc and chemo held today. Pt will get treatment in 2 weeks, as scheduled, and MD will add pegfilgrastim. Pt and her are aware and verbalized understanding. Questions answered.
--- NOTE | 2024-03-17 14:12 | URNOTE ---
Addendum entered by Tawnya Narayan RN 04/10/24 11:16: Note authorization for Vegzelma (bevacizumab-adcd) (Q5129), Prior authorization is not required as services are based on medical necessity and follow Medicare guidelines. Original Note: Request received for authorization for Fulphila (Q5108), Aloxi (J2469), Leucovorin (J0640), Bevacizumab (J9035), 5FU (J9190) and Irinotecan (J9206). Prior authorization is not required as services are based on medical necessity and follow Medicare guidelines.
[2024-03-31 09:01] VITALS: BP 155/79; PULSE 62; RESP 17; TEMP 36.6; O2SAT 96
[2024-03-31 09:28] LABS: Basophils Percent Auto 0.5 % (0.0-3.0); Eosinophils Percent Auto 1.5 % (0.0-7.0); Hematocrit 42.1 % (33.0-51.0); Hemoglobin* 13.6 gm/dL (12.0-16.0); Immature Granulocytes Pct Auto 1.1 %; Lymphocytes Percent Auto 17.5 % (20-44); Mean Corpuscular HGB Conc 32 gm/dL (32-36); Mean Corpuscular Hemoglobin 34 pg (26-34); Mean Corpuscular Volume 105 fL (80-100); Monocytes Percent Auto 11.1 % (0.0-11.0); Neutrophils Percent Auto 68.3 % (42.0-72.0); Platelet Count* 231 K/uL (140-440); RDW Coefficient of Variation % 14.4 % (11.5-15.5); Red Blood Count 4.03 m/uL (4.00-5.20); White Blood Count* 11.06 K/uL (4.50-11.00)
[2024-03-31 09:46] LABS: Albumin* 3.9 g/dL (3.3-5.0); Chloride* 104 mmol/L (96-114); Sodium* 136 mmol/L (135-149)
[2024-03-31 09:47] LABS: Potassium* 3.9 mmol/L (3.6-5.1)
[2024-03-31 09:49] LABS: Alanine Aminotransferase* 18 U/L (4-35); Alkaline Phosphatase* 106 U/L (40-150); Anion Gap 7 mEq/L (7-15); Aspartate Amino Transferase* 21 U/L (12-35); Bilirubin Total* 0.4 mg/dL (0.1-1.5); Blood Urea Nitrogen* 13 mg/dL (7-30); Calcium* 8.8 mg/dL (8.4-10.6); Carbon Dioxide* 25 mmol/L (20-32); Creatinine* 0.6 mg/dL (0.5-1.5); Est. Creatinine Clearance* 45.82; Estimated Glomerular Filt Rate 92 ml/min; Glucose* 122 mg/dL (60-115); Total Protein* 6.3 g/dL (6.0-8.3)
[2024-03-31 09:53] LABS: Slide Review Reflex No
[2024-03-31 10:09] VITALS: BP 137/78
[2024-03-31 10:24] LABS: Creatinine Urine 132.4 mg/dL; Protein Creatinine Ratio Urine 0.04 (0-0.19); Total Protein Urine < 5 mg/dL
[2024-03-31] MEDS: BEVACIZUMAB ADCD IVPB (11:18)
[2024-03-31] MEDS: [UNRECOGNIZED DRUG - OTHER] IVPB (11:18)
[2024-03-31] MEDS: TUBING SECONDARY IVPB (11:18)
[2024-03-31] MEDS: PALONOSETRON 0.25 MG/5 ML inj IV (11:58)
[2024-03-31] MEDS: dexAMETHasone 10 MG/ML inj IVP (12:03)
[2024-03-31] MEDS: ATROPINE 0.4 mg/ml IV (12:04)
[2024-03-31] MEDS: LEUCOVORIN CALCIUM 100 MG, TUBING SECONDARY 1 EACH in 5 % DEXTROSE 250 ML 250 ML 170 MG IV (12:28)
[2024-03-31] MEDS: FLUOROURACIL IV (14:13)
[2024-03-31] MEDS: CADD MED CASSETTE RESERVOIR IV (14:13)
--- OUTSIDE RECORDS SUMMARY | 2024-04-02 07:03 | XMS_ITS | Continuity of Care Document ---
Author Name NwHIN User [id number]-a llowed Address Unknown Organization Unknown Address Unknown Procedures FILTER APPLIED:Only known Procedures with Onset Date within the last 5 years Procedure Date Procedure Provider Additiona l Information Status URINALYSIS AUTO W/O SCOPE (73783) Completed OFFICE O/P EST HI 40 MIN (45892) Completed OFF/OP EST MAY X REQ PHY/QHP (85037) Completed CHEMO PROLONG INFUSE W/PUMP (75654) Completed THER/PROPH/DIAG IV INF ADDON (31937) Completed TX/PRO/DX INJ SAME DRUG BUNCH TRIMMER MOLD (83038) Completed CHEMO IV INFUSION 1 HR (11546) Completed DRAW BLOOD OFF VENOUS DEVICE (41948) Completed COMPREHEN METABOLIC PANEL (11599) Completed ASSAY OF URINE CREATININE (13378) Completed ASSAY OF PROTEIN URINE (16598) Completed EXTREMITY STUDY (82851) Completed OFFICE O/P EST MOD 30 MIN (20433) Completed OFFICE O/P EST SF 10 MIN (31763) Completed COMPLETE CBC W/AUTO DIFF WBC (44101) Completed ASSAY OF CREATININE (16409) Completed C DIFF AMPLIFIED PROBE (03006) Completed EMERGENCY DEPT VISIT MOD MDM (88389) Completed THER/PROPH/DIAG INJ SC/IM (79108) Completed US URINE CAPACITY MEASURE (83448) Completed URINALYSIS AUTO W/SCOPE (27865) Completed ASSAY OF SERUM POTASSIUM (69990) Completed ASSAY OF MAGNESIUM (15903) Completed THER/PROPH/DIAG IV INF INIT (19459) Completed THER/PROPH/DIAG IV INF ADDON (45542) Completed CHEMO IV INFUS EACH ADDL SEQ (76118) Completed URINE CULTURE/COLONY COUNT (54396) Completed OFFICE O/P EST HI 40 MIN (53782) Completed OFFICE O/P EST SF 10 MIN (29759) Completed ASSAY OF PROTEIN URINE (53499) Completed ASSAY OF URINE CREATININE (69670) Completed MICROSCOPIC EXAM OF URINE (86638) Completed URINALYSIS AUTO W/O SCOPE (72333) Completed DRAW BLOOD OFF VENOUS DEVICE (39750) Completed OFFICE O/P NEW SF 15 MIN (23026) Completed OFFICE O/P NEW HI 60 MIN (25533) Completed CHEMO IV INFUSION 1 HR (63847) Completed TX/PRO/DX INJ SAME DRUG BUNCH TRIMMER MOLD (25933) Completed THER/DIAG CONCURRENT INF (64316) Completed OFF/OP EST JULY X REQ PHY/QHP (29384) Completed COMPLETE CBC W/AUTO DIFF WBC (66084) Completed CHEMO PROLONG INFUSE W/PUMP (82299) Completed COMPREHEN METABOLIC PANEL (89071) Completed ROUTINE VENIPUNCTURE (62527) Completed CHEMO IV PUSH ADDL DRUG (18323) Completed CHEMO IV INFUSION ADDL HR (82568) Completed BILIRUBIN DIRECT (71644) Completed Encounters FILTER APPLIED:Only known Encounters with Admission Date within the last 5 years Encounter Location Admission Discharge Billing Code [facility] Supervisor [facility] D[facility] Out[facility] Out[facility]
--- OUTSIDE RECORDS SUMMARY | 2024-04-02 07:03 | XMS_ITS | Clinical Summary ---
Author Organization [facility] Address [address] [address] Care Team Providers Care Payroll Bookkeeper Name Role Phone Elsewhere, Pcp Primary Care Provider Unavailabl e Source Comments Patient records contain information from all sites at [facility]. For routine questions regarding patient records, call [phone] during business hours, M-F 8:00 AM - 5:00 PM Central Time. Record requests for emergency care only can be directed to [phone] at any time.[facility] Allergies Active Allergy Reactions Criticality Noted Date Comments Adhesive Tape-Silicones Other (see comments) Medications * This document contains information received from the source organization and may not represent a complete record from that organization. cyanocobalamin (VITAMIN B12) 1,000 mcg tablet Take 1 tablet by mouth daily. 8 Active metoprolol tartrate (LOPRESSOR) 50 mg tablet Take 1 tablet by mouth 2 (two) times a day. 8 Active multivitamin tablet Take 1 tablet by mouth daily. 8 Active simvastatin (ZOCOR) 20 mg tablet Take 1 tablet by mouth daily. 8 Active omeprazole (PriLOSEC) [address] capsule Take 1 capsule by mouth daily. 0 Active diphenhydrAMINE -acetaminophen (TYLENOL PM) 25-500 mg per tablet Take 0.5 tablets by mouth at bedtime as needed for sleep. Active polyethylene glycol (MIRALAX) 17 gram powder packet Take 17 g by mouth daily as needed. Active hydroCHLOROthia zide (HYDRODIURIL) 12.5 mg tablet Take 12.5 mg by mouth every morning. 3 Active dexAMETHasone (DECADRON) 4 mg tabletIndicatio ns:Malignant Neoplasm Of Rectum (HCC),Secondary Malignant Neoplasm Liver (HCC) Take 2 tablets (8 mg total) by mouth daily. Take daily for 3 days, starting the day after chemotherapy ends of each cycle. 6 tablet 3 3 Active Additional Information Patient taking differently:8 mg oral Daily,Take daily for 3 days, starting the day after chemotherapy ends of each cycle.Pt reports she has never taken this after chemo. Flag for Provider. Provider to remove note after review., Reported on 02/18/[address] tablet Take 81 mg by mouth daily. Active potassium chloride (K-TAB) 20 mEq CR tablet Take 2 tablets by mouth daily. 2 tablets on Saturday, Saturday, & Saturday. 3 tablets on Saturday, Saturday, Saturday, & . 3 Active cholecalciferol (Vitamin D3) 25 mcg (1,000 Unit) capsule Take 25 mcg by mouth daily. 2 Active loperamide (IMODIUM A-D) 2 mg capsule See Admin Instructions. See attached for detailed directions. 3 Active sertraline (ZOLOFT) 50 mg tablet Take 50 mg by mouth daily. 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 on 02/19/2024 Obesity Unspecified 12/06/2022 Mass Hepatic 12/06/2022 Polyneuropathy 06/27/2021 Paresthesia 09/28/2020 Encounters * This document contains information received from the source organization and may not represent a complete record from that organization. Date Type Department Care Team Description 02/19/2024 3:20 PM SPECIALTY PLANT SUPERVISOR Office Visit Department of Oncology in [address] [phone] Elisabeth Turner M.D. Malignant Neoplasm Of Rectum (HCC) (Primary Dx); Secondary Malignant Neoplasm Liver (HCC); Nodules Pulmonary Multiple 02/19/2024 8:00 AM SPECIALTY PLANT SUPERVISOR Lab Department of Infusion Therapy in [address] [phone] Elisabeth Turner M.D. Malignant Neoplasm Of Rectum (HCC) (Primary Dx); Secondary Malignant Neoplasm Liver (HCC) 02/19/2024 6:31 AM [employer]TY PLANT SUPERVISOR - 02/19/2024 11:59 PM [employer]TY PLANT SUPERVISOR Hospital Encounter Department of Radiology, [facility], in [address] [phone] Elisabeth Turner M.D. Malignant Neoplasm Of Rectum (HCC); Secondary Malignant Neoplasm Liver (HCC) Discharge Disposition: Home or Self Care 02/18/2024 12:00 PM [employer]TY PLANT SUPERVISOR Clinical Communication Virtual Review in [place], [place] [address] [place] [address] Pre-visit Intake from Last 3 Months Family History Medical History Relation Name Comments Hypertension Father W L Prostate cancer Father W L Relation Name Status Comments Father W L 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 Tobacco Use Types Packs/Day Years Used Date Smoking Tobacco: Never Passive Smoke Exposure: Never Smokeless Tobacco: Never Alcohol Use Standard Drinks/Week Comments Yes 2 (1 standard drink = 0.6 oz pur e alcohol) [facility] Utilities Answer Date Recorded In the past 12 months has e [employer], gas, oil, or water [employer] threatened to shut off services in your home? No 12/10/2023 Humiliation, Afraid, Rape, and Kick questionnair e [...] How often do you attend chur or yazidi services? Never 09/22/2021 Do you belong to [...] and heating? Not hard at all 11/22/2022 [facility] of Occupat ional Health - Occupational Stress [...] exercise (like a brisk walk)? 1 day 12/10/2023 On average, how many minutes do you engage in exercise at this level? 10 min 12/10/2023 Hunger Vital Sign Answer Date Recorded Within the past 12 months, y ou worried that your food would run out before you got the money to buy more. Never true 12/10/19 Within the past 12 months, t he food you bought just didn't last and you didn't have money to get more. Never true 12/10/2023 PRAPARE - Transportation Answer Date Re corded In the past 12 months, has l ack of transportation kept you from medical appointments or from getting medications? No 11/30 In the past 12 months, has l ack of transportation kept you from meetings, work, or from getting things needed for daily living? No 12/10/2023 Nutrition Answer Date Recorded On average, how many serving s of fruits and vegetables do you eat per day (serving size is equal to 1 cup or approximately the size of a tennis ball)? 3-5 12/10/2023 Dental Answer Date Recorded Dental: Regular Dentist No 12/10/19 Employment Answer Date Recorded Employment status Retired 12/10/2023 Housing Stability Answer Date Recorded What is your living situation today? I have a [facility] place to live 12/10/2023 Education Answer Date Recorded What is the highest level of school you have completed or the highest degree you have received? Some college, no degree 09/22/2021 Comments No Sex and Gender Information Value Date Recorded Sex Assigned at Female 09/22/2021 7:06 AM CDT Legal Sex Female 1:06 PM CDT Gender Identity Female 09/22/2021 7:06 AM CDT Sexual Orientation Straight 12/25/2021 10 :27 AM CDT Last Filed Vital Signs Vital Sign Reading Time Taken Comments Blood Pressure 149/74 02/19/2024 4:30 PM [employer] SUPER[employer]OR Pulse 59 02/19/2024 4:30 PM [employer] PL[employer] SUPER[employer]OR Temperature 36.8 C (98.2 F) 12/16/2023 11:27 AM CDT Respiratory Rate 15 02/19/2024 4:30 PM [employer] PL[employer] SUPER[employer]OR Oxygen Saturation 98% 02/19/2024 4:30 PM [employer] PLANT SUPERVISOR Inhaled Oxygen Concentration - - Weight 78.1 kg (172 lb 2.9 oz) 02/19/2024 4:30 P M [employer] SUPERVISOR Height 170 cm (5' 6.93) 12/16/2023 11:27 AM CDT Body Mass Index 27.02 12/16/2023 11:27 AM CDT Plan of Treatment Upcoming Encounters Date Type Department Care Team (Latest Contact Info) Description 05/20/2024 10:30 AM [employer]TY PLANT SUPERVISOR Clinical Communication Virtual Review in [place], [place] [address] [place] [address] 05/21/2024 7:00 AM [employer] PLANT SUPERVISOR Appointment Department of Radiology, [facility], in [place], [place] [address] [place] [phone] Elisabeth Turner M.D. [address] [place] [phone] 05/21/2024 7:40 AM SPECIALTY PLANT SUPERVISOR Lab Department of Infusion Therapy in [address] [phone] Elisabeth Turner M.D. [address] [place] [phone] 05/21/2024 11:10 AM [employer] PLANT SUPERVISOR Office Visit Department of Oncology in [address] [phone] Johnathan José M.D. [address] [place] [phone] Health Maintenance Due Date Last Done Comments Hepatitis C Screening 1945 Hepatitis A Vaccines (1 of 2 - Risk 2-dose series) 1966 Zoster Vaccines (1 of 2) 1966 Hepatitis B Vaccines (1 of 3 - Risk 3-dose series) 2007 RSV vaccine - (32-36 weeks) or 60+ years (1 - 1-dose 75+ series) 2022 Depression Screening (Annual PHQ-2) 04/01/2023 Fall Risk Screen (Annual) 04/01/2023 COVID-19 Vaccine ( season) 2023 01/01/2023, 08/07/2022, 12/20/2021, Additional history exists Office Visit for Blood Pressure Check / Re-check 05/21/2024 02/19/2024 Creatinine Level (Kidney Function Test) 02/18/2025 02/19/2024, 12/16/2023, 10/15/2023, Additional history exists Potassium Level 02/18/2025 02/19/2024, 11/30, 10/15/2023, Additional history exists Sodium Level 02/18/2025 02/19/2024, 11/30, 10/15/2023, Additional history exists DTaP,Tdap,and Td Vaccines (2 - Td or Tdap) 08/10/2030 08/10/2020 Pneumococcal vaccine (50+ years) Completed 08/14/2021, 01/30/2019 Influenza Vaccine Completed 01/10/2024, , 01/31/2022, Additional history exists HPV Vaccines Aged Out No longer eligi ble based on patient's age to complete this topic IPV Vaccines Aged Out No longer eligi ble based on patient's age to complete this topic Medical Devices Implanted Type Area Medication Care Manager Device Identifier Shelf Expiration Date Model / Serial / Lot Hardware E.G. Pins/Screws/R ods Hardware e.g. pins/screws/clayton s Right: Wrist Description:Titanium plate Prt Cath Infus Mri Intrmd 8f - [id number] Implanted:Qty : 1 on 12/17/2022 by Alfie Merino M.D. at [facility] Implantable [employer] 05/29/2024 [id number] / / [id number] Procedures Procedure Name Priority Date/Time Associated Diagnosis Comments COMPREHENSIVE METABOLIC PANEL, S/P Routine 02/19/2024 8:27 AM [employer] PL[employer] SUPERVISOR Malignant Neoplasm Of Rectum (HCC) Secondary Malignant Neoplasm Liver (HCC) CARCINOEMBRYONIC AG (CEA), S Routine 02/19/2024 8:27 AM [employer] PL[employer] SUPERVISOR Malignant Neoplasm Of Rectum (HCC) Secondary Malignant Neoplasm Liver (HCC) CBC CHEMO - NO ALERTS Routine 02/19/2024 8:27 AM [employer] PL[employer] SUPERVISOR Malignant Neoplasm Of Rectum (HCC) Secondary Malignant Neoplasm Liver (HCC) BILIRUBIN DIRECT, S/P Routine 02/19/2024 8:27 AM [employer] SUPER[employer]OR Malignant Neoplasm Of Rectum (HCC) Secondary Malignant Neoplasm Liver (HCC) CT CHEST WITH IV CONTRAST RAD - Routine (most inpatients and all outpatients) 02/19/2024 7:52 AM [employer] PLANT SUPERVISOR Malignant Neoplasm Of Rectum (HCC) Secondary Malignant Neoplasm Liver (HCC) CT ABDOMEN PELVIS WITH IV CONTRAST RAD - Routine (most inpatients and all outpatients) 02/19/2024 7:52 AM [employer] PLANT SUPERVISOR Malignant Neoplasm Of Rectum (HCC) Secondary Malignant Neoplasm Liver (HCC) from Last 3 Months Results * (ABNORMAL) CBC, Chemotherapy, No Alerts (02/19/2024 8:27 AM [employer]TY PLANT SUPERVISOR) Pathologist [facility] Hemoglobin 14.1 11.6 - 15.0 g/dL 02/19/2024 9:27 AM SPECIALTY PLANT SUPERVISOR DTL Platelet Count 138(L) 157 - 371 x10(9)/L 02/19/2024 9:27 AM SPECIALTY PLANT SUPERVISOR DTL Leukocytes 6.7 3.4 - 9.6 x10(9)/L 02/19/2024 9:27 AM SPECIALTY PLANT SUPERVISOR DTL Neutrophils 3.32 1.56 - 6.45 x10(9)/L 02/19/2024 9:27 AM SPECIALTY PLANT SUPERVISOR [facility] Blood (Blood, Venous) 02/19/2024 8:27 AM [employer]TY PLANT SUPERVISOR 02/19/2024 8:39 AM [employer]TY PLANT SUPERVISOR Elisabeth Turner M.D. LAB BLOOD ADD-ON Final R esult [facility] [place] [address] [place] [address], [place] DTL [facility] [address] [place] [address] [facility] [address] [place] [address] * (ABNORMAL) CEA (Carcinoembryonic Antigen) (02/19/2024 8:27 AM SPECIALTY PLANT SUPERVISOR) Carcinoembryonic Ag (CEA), S 61.4(H) ng/mL 02/19/2024 1:25 PM SPECIALTY PLANT SUPERVISOR [facility] Comment: ----REFERENCE VALUE---- <=3.0 (Non-smokers) Some smokers may have elevated CEA, usually <5.0. ----ADDITIONAL INFORMATION---- The testing method is an immunoenzymatic assay manufactured by [employer]. and performed on the Ezeecube DxI 800. Values obtained with different assay methods or kits may be different and cannot be used interchangeably. Test results cannot be interpreted as absolute evidence for the presence or absence of malignant disease. Blood (Blood, Venous) 02/19/2024 8:27 AM SPECIALTY PLANT SUPERVISOR 02/19/2024 12:32 PM SPECIALTY PLANT SUPERVISOR Elisabeth Turner M.D. LAB BLOOD ADD-ON Final R esult Performing Organization Address City/[facility]/ZIP Co de Phone Number [facility] [address] [place] [address] [facility] [address] [place] [address] * Bilirubin, Direct (02/19/2024 8:27 AM SPECIALTY PLANT SUPERVISOR) Bilirubin, Direct, S <0.2 0.0 - 0.3 mg/dL 02/19/2024 9:25 AM SPECIALTY PLANT SUPERVISOR DT Blood (Blood, Venous) 02/19/2024 8:27 AM SPECIALTY PLANT SUPERVISOR 02/19/2024 9:05 AM SPECIALTY PLANT SUPERVISOR Elisabeth Turner M.D. LAB BLOOD ADD-ON Final R esult Performing Organization Address [facility]/ZIP Co de Phone Number [facility] [place] [address] [place] [address], [facility] [address] [place] [address] * (ABNORMAL) Comprehensive Metabolic Panel (02/19/2024 8:27 AM SPECIALTY PLANT SUPERVISOR) Potassium, S 3.9 3.6 - 5.2 mmol/L 02/19/2024 9:25 AM SPECIALTY PLANT SUPERVISOR DTL Sodium, S 136 135 - 145 mmol/L 02/19/2024 9:25 AM [employer]TY PLANT SUPERVISOR DTL Chloride, S 102 98 - 107 mmol/L 02/19/2024 9:25 AM SPECIALTY PLANT SUPERVISOR DTL Bicarbonate, S 24 22 - 29 mmol/L 02/19/2024 9:25 AM SPECIALTY PLANT SUPERVISOR DTL Anion Gap 10 7 - 15 02/19/2024 9:25 AM SPECIALTY PLANT SUPERVISOR DTL BUN (Blood Urea Nitrogen), S 11 6 - 21 mg/dL 02/19/2024 9:25 AM [employer]TY PLANT SUPERVISOR DTL Creatinine 0.89 0.59 - 1.04 mg/dL 02/19/2024 9:25 AM [employer]TY PLANT SUPERVISOR DTL Estimated GFR (eGFR) 67 >=60 mL/min/BS A 02/19/2024 9:25 AM SPECIALTY PLANT SUPERVISOR DTL Comment: Estimated GFR calculated using the 2020 CKD_EPI creatinine equation. Calcium, Total, S 9.1 8.8 - 10.2 mg/dL 02/19/2024 9:25 AM SPECIALTY PLANT SUPERVISOR DTL Glucose, S 94 70 - 140 mg/dL 02/19/2024 9:25 AM SPECIALTY PLANT SUPERVISOR DTL Protein, Total, S 6.1(L) 6.3 - 7.9 g/dL 02/19/2024 9:25 AM SPECIALTY PLANT SUPERVISOR DTL Albumin, S 4.0 3.5 - 5.0 g/dL 02/19/2024 9:25 AM [employer] PLANT SUPERVISOR DTL Aspartate Aminotransferase (AST), S 22 8 - 43 U/L 02/19/2024 9:25 AM SPECIALTY PLANT SUPERVISOR DTL Alkaline Phosphatase, S 85 35 - 104 U/L 02/19/2024 9:25 AM SPECIALTY PLANT SUPERVISOR DTL Alanine Aminotransferase (ALT), S 28 7 - 45 U/L 02/19/2024 9:25 AM SPECIALTY PLANT SUPERVISOR DTL Bilirubin, Total, S 0.7 0.0 - 1.2 mg/dL 02/19/2024 9:25 AM SPECIALTY PLANT SUPERVISOR DTL Blood (Blood, Venous) 02/19/2024 8:27 AM [employer] PLANT SUPERVISOR 02/19/2024 9:05 AM [employer] PLANT SUPERVISOR Elisabeth Turner M.D. LAB BLOOD ADD-ON Final R esult [facility] [place] [address] [place] [address], [place] DTL [facility] [address] [place] [address] * CT Abdomen Pelvis with IV Contrast (02/19/2024 7:52 AM [employer]TY PLANT SUPERVISOR) Anatomical Region Laterality Modality Abdomen, Pelvis, Abdominal R ST LOS, Abdominal ARZ LOS, Abdominal FLA LOS N/A Computed Tomograp hy, Computed Tomography 02/19/2024 7:45 AM [employer]TY PLANT SUPERVISOR Impressions 02/19/2024 2:06 PM [employer]TY PLANT SUPERVISOR 1. 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 2. Apparent filling defect within the right gonadal vein which may be artifactual from phase of contrast versus gonadal vein thrombus. Narrative 02/19/2024 2:06 PM SPECIALTY PLANT SUPERVISOR EXAM: CT ABDOMEN PELVIS WITH IV CONTRAST COMPARISON: CT abdomen pelvis dated 12/16/2023. FINDINGS: Interval increase in size of multiple hepatic metastases. For reference, a hepatic segment III metastases measures 1.3 x 1 cm (series 301, image 33), previously 0.5 x 0.5 cm. An inferior right hepatic metastases measures 2.7 x 1.5 cm (series 301, image 58), previously 2.2 x 1.5 cm. No intra or extra hepatic biliary ductal dilatation. Cholecystectomy. Spleen, both adrenal glands, pancreas, and both kidneys are within normal limits with the exception of right renal cysts. No abdominal or pelvic lymphadenopathy. No free intraperitoneal fluid or gas. Small and large bowel are normal in caliber without obstruction or inflammation. Chronic diverticulosis without diverticulitis. Small fat-containing umbilical hernia. Small hiatal hernia. Unremarkable CT appearance of the uterus. No suspicious adnexal lesion. Urinary bladder decompressed. Apparent filling defect right gonadal vein be artifactual from phase of contrast versus a gonadal vein thrombus. In some locations, it is not substantially changed from prior (series 301, image 112). Nonaneurysmal aorta. Multilevel degenerative changes of the spine. No suspicious osteolytic or blastic lesions. Procedure Note Marleen Rooney M.D. - 02/19/2024 EXAM: CT ABDOMEN PELVIS WITH IV CONTRAST COMPARISON: CT abdomen pelvis dated 12/16/2023. FINDINGS: Interval increase in size of multiple hepatic metastases. Forreference, a hepatic segment III metastases measures 1.3 x 1 cm ([id number], image 33), previously 0.5 x 0.5 cm. An inferior right hepaticmetastases measures 2.7 x 1.5 cm (series 301, image 58), previously 2.2 x 1.5 cm. No intra or extra hepatic biliary ductal dilatation. Cholecystectomy. Spleen, both adrenal glands, pancreas, and both kidneys are within normallimits with the exception of right renal cysts. No abdominal or pelvic lymphadenopathy. No free intraperitoneal fluid orgas. Small and large bowel are normal in caliber without obstruction orinflammation. Chronic diverticulosis without diverticulitis. Smallfat-containing umbilical hernia. Small hiatal hernia. Unremarkable CT appearance of the uterus. No suspicious adnexal lesion.Urinary bladder decompressed. Apparent filling defect right gonadal vein be artifactual from phase ofcontrast versus a gonadal vein thrombus. In some locations, it is notsubstantially changed from prior (series 301, image 112). Nonaneurysmal aorta. Multilevel degenerative changes of the spine. No suspicious osteolytic orblastic lesions. IMPRESSION: 1. 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 2. Apparent filling defect within the right gonadal vein which may beartifactual from phase of contrast versus gonadal vein thrombus. Elisabeth Turner M.D. [facility] [place] CT PROCEDURES Final Result * CT Chest with IV Contrast (02/19/2024 7:52 AM SPECIALTY PLANT SUPERVISOR) Anatomical Region Laterality Modality Chest, Thoracic RST LOS, Tho racic ARZ LOS, Thoracic ARZ LOS, Thoracic FLA LOS N/A Computed Tomography, Compute d Tomography 02/19/2024 7:45 AM SPECIALTY PLANT SUPERVISOR Impressions 02/19/2024 9:57 AM [employer] PLANT SUPERVISOR 1. New and enlarging subcentimeter pulmonary nodules are concerning for metastatic disease. Largest nodule is approximately 6 mm in the right upper lobe. 2. Other stable pulmonary micronodules are likely benign. Narrative 02/19/2024 9:57 AM SPECIALTY PLANT SUPERVISOR EXAM: CT CHEST WITH IV CONTRAST COMPARISON: 12/16/2023 and exams back to 11/29/2022 FINDINGS: Since 12/16/2023, the nodule in the right upper lobe that was new on 12/16/2023 has increased to 6 mm in diameter compared with 3 mm previously (series 201, image 193). A 3 mm nodule in the left apex (series 201, image 88) has increased from 1 to 2 mm previously. A subtle 3 mm subsolid nodule in the left lower lobe (series 201, image 269) is new. These findings are concerning for metastatic disease, given history of malignancy. A few other noncalcified micronodules such as a 3 mm peribronchial nodule in the central right lower lobe (series 201, image 348) are unchanged since 11/29/2022 and are likely benign. Calcified pulmonary granuloma in the left upper lobe. No adenopathy in the chest. Slight apical scarring. Mild regional vascular calcifications, including the coronary arteries. Probable left ventricular enlargement and hypertrophy, with prominence of the intraventricular septum. Probable osteopenia. Dedicated bone densitometry may be indicated. Age-related changes in the skeleton, but no aggressive osseous lesions are identified. This examination was performed in conjunction with a CT of the abdomen, which will be reported separately. 3D maximum intensity projection (MIP) images were created on a dependent workstation as ordered by the treating provider and reviewed by the radiologist to increase sensitivity for detection of pulmonary nodules. Procedure Note Joseph Wilde M.D. - 02/19/2024 EXAM: CT CHEST WITH IV CONTRAST COMPARISON: 12/16/2023 and exams back to 11/29/2022 FINDINGS: Since 12/16/2023, the nodule in the right upper lobe that was new on12/16/2023 has increased to 6 mm in diameter compared with 3 mm previously(series 201, image 193). A 3 mm nodule in the left apex (series 201,image 88) has increased from 1 to 2 mm previously. A subtle 3 mm subsolid nodule in the left lower lobe ([id number], image 269) is new. These findings are concerning for metastaticdisease, given history of malignancy. A few other noncalcified micronodules such as a 3 mm peribronchial nodulein the central right lower lobe (series 201, image 348) are unchangedsince 11/29/2022 and are likely benign. Calcified pulmonary granuloma inthe left upper lobe. No adenopathy in the chest. Slight apical scarring. Mild regional vascular calcifications, including the coronary arteries.Probable left ventricular enlargement and hypertrophy, with prominence ofthe intraventricular septum. Probable osteopenia. Dedicated bone densitometry may be indicated.Age-related changes in the skeleton, but no aggressive osseous lesions areidentified. This examination was performed in conjunction with a CT of the abdomen,which will be reported separately. 3D maximum intensity projection (MIP) images were created on a dependentworkstation as ordered by the treating provider and reviewed by theradiologist to increase sensitivity for detection of pulmonary nodules. IMPRESSION: 1. New and enlarging subcentimeter pulmonary nodules are concerning formetastatic disease. Largest nodule is approximately 6 mm in the rightupper lobe. 2. Other stable pulmonary micronodules are likely benign. Elisabeth Turner M.D. IMG CT PROCEDURES Final Result from Last 3 Months Insurance [facility] MEDIC[facility] Care Teams Payroll Bookkeeper Relationship Specialty Start Date End Date Elsewhere, Pcp PCP - General Internal Medicine 09/26/21
--- OUTSIDE RECORDS SUMMARY | 2024-04-02 07:04 | XMS_ITS | Encounter Summary ---
Author Organization [facility] Address [address] [place] [address] Care Team Providers Care Student Ministries Director Name Role Phone Elsewhere, Pcp Primary Care Provider Unavailabl e Reason for Referral * Outpatient (Routine) - Authorized Specialty Diagnoses / Procedures Referred By Tammy t Referred To Contact Oncology Elisabeth Turner M.D. [address] [place] [address] Phone: tel: fax: [facility] Referral ID Status Reason Start Date Expiration Date V isits Requested Visits Authorized [id number] Authorized 02/19/2024 08/20/2025 1 1 Scheduling Instructions Schedule with Dr José first choice, MARGA care team second choice, [place]LEY care team third choice. ET PROPELLANT PLANT SUPERVISOR * MRI/CAT/PET Scan (Routine) - Authorized Specialty Diagnoses / Procedures Referred By Contac t Referred To Contact Radiology Diagnoses Malignant Neoplasm Of Rectum (HCC) Secondary Malignant Neoplasm Liver (HCC) Nodules Pulmonary Multiple Procedures CT Chest without IV Contrast Elisabeth Turner M.D. [address] [place] [address] Phone: tel: fax: [facility] Referral ID Status Reason Start Date Expiration Date V isits Requested Visits Authorized [id number] Authorized 02/19/2024 02/18/2025 1 1 ET PROPELLANT PLANT SUPERVISOR * MRI/CAT/PET Scan (Routine) - Authorized Specialty Diagnoses / Procedures Referred By Tammy stone Referred To Contact Radiology Diagnoses Malignant Neoplasm Of Rectum (HCC) Secondary Malignant Neoplasm Liver (HCC) Nodules Pulmonary Multiple Procedures CT Abdomen Pelvis with IV Contrast Elisabeth Turner M.D. [address] [place] [phone] Phone: tel: fax: [facility] Referral ID Status Reason Start Date Expiration Date V isits Requested Visits Authorized [id number] Authorized 02/19/2024 02/18/2025 1 1 ET PROPELLANT PLANT SUPERVISOR Reason for Visit * Outpatient (Routine) - Closed Specialty Diagnoses / Procedures Referred By Tammy stone Referred To Contact Oncology Elisabeth Turner M.D. [address] [place] [phone] Phone: tel: fax: [facility] Referral ID Status Reason Start Date Expiration Date Visits Re quested Visits Authorized [id number] Closed 12/16/2023 06/16/2025 1 1 Encounter Details Date Type Department Care Team (Late st Contact Info) Description 02/19/2024 3:20 PM ROCKET PROPELLANT PLANT SUPERVISOR Office Visit Department of Oncology in [place], [place] [address] [place] [phone] Elisabeth Turner M.D. [address] [place] [phone] Malignant Neoplasm Of Rectum (HCC) (Primary Dx); Secondary Malignant Neoplasm Liver (HCC); Nodules Pulmonary Multiple 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 Tobacco Use Types Packs/Day Years Used Date Smoking Tobacco: Never Passive Smoke Exposure: Never Smokeless Tobacco: Never Alcohol Use Standard Drinks/Week Comments Yes 2 (1 standard drink = 0.6 oz pur e alcohol) [facility] Utilities Answer Date Recorded In the past 12 months has [employer], gas, oil, or water [employer] threatened to shut off services in your [...] How often do you attend chur or samaritan services? Never 09/22/2021 Do you belong to any clubs o r organizations such as rastafari groups, unions, fraternal [...] and heating? Not hard at all 11/22/2022 [facility] Occup[facility] - Occupational Stress [...] your living situation today? I have a [facility] place to live 12/10/2023 Education Answer Date [...] Comments Blood Pressure 149/74 02/19/2024 4:30 PM ROCKET PROPELLANT PLANT SUPERVISOR Pulse 59 02/19/2024 4:30 PM ROCKET PROPELLANT PLANT SUPERVISOR Temperature - - Respiratory Rate 15 02/19/2024 4:30 PM ROCKET PROPELLANT PLANT SUPERVISOR Oxygen Saturation 98% 02/19/2024 4:30 PM ROCKET PROPELLANT PLANT SUPERVISOR Inhaled Oxygen Concentration - - Weight 78.1 kg (172 lb 2.9 oz) 02/19/2024 4:30 P M ROCKET PROPELLANT PLANT SUPERVISOR Height - - Body Mass Index 27.02 12/16/2023 11:27 AM CDT documented in this encounter Progress Notes * Elisabeth Turner M.D. - 02/19/2024 3:20 PM CST Images from the original note were not included. SUBJECTIVE Cancer Staging Malignant Neoplasm Of Rectum (HCC) Staging form: Colon And Rectum, AJCC 8th Edition - Clinical stage from 11/19/2022: Stage JUAN (cT4b, cN2, cM1a) Current Therapy: First-line FOLFIRI + Bevacizumab ( Fluorouracil / Leucovorin / Irinotecan / Bevacizumab ) Current Disease Status: Progressing ECOG Performance Status: 1 Intent of Therapy: Palliative Intent to Change Therapy: Yes-changing regimen due to progression CHIEF COMPLAINT / REASON FOR VISIT Apolonia William is a 78 y.o. female who presents for evaluation of metastatic rectal cancer to liver HISTORY OF PRESENT ILLNESS Oncology History Oncology History Overview Note DIAGNOSIS: Stage IV ([id number]) distal rectal adenocarcinoma, mets to liver (baseline CEA 32.6) PRIMARY HELPER ONCOLOGIST: Dr. José PRIMARY LOCAL ONCOLOGIST: Dr. Mc ([facility]) MOLECULAR PROFILE: pMMR Tempus xT (11/19/22): KRAS Q61H, PTEN C211fs, TP53 R175H, APC R1114*, APC Q1444. CDKN2A cnl, CDKN2B cnl, MTAP cnl. TMB 3.7 m/MB. ADIS. SYSTEMIC THERAPIES: First-line FOLFIRI/Bevacizumab Malignant Neoplasm Of Rectum (HCC) 11/19/2022 Initial Diagnosis Malignant Neoplasm Of Rectum (HCC) complained of about 4 months of pelvis pressure and could not tell if this was coming from the rectum or vagina, though there was a sensation that there was a golf ball that she was sitting on. Her PCP recommended fiber. Her field pipe lines supervisor did a pelvis exam which was [...] poorly differentiated adenocarcinoma. Background adenoma is present. pMMR. 11/19/2022 Clinical Stage Staging form: Colon And Rectum, AJCC 8th Edition - Clinical stage from 11/19/2022: Stage JUAN (cT4b, cN2, cM1a) Histopathologic type: Adenocarcinoma, NOS Stage prefix: Initial diagnosis Histologic grade (G): G3 Histologic grading system: 4 grade system Sites of metastasis: Liver Lymph-vascular invasion (LVI): Presence of LVI unknown/indeterminate Specimen type: Biopsy / Limited Resection Tumor deposits (TD): Unknown Carcinoembryonic antigen (CEA) (ng/mL): 32.6 Perineural invasion (PNI): Unknown Microsatellite instability (MSI): Stable KRAS mutation: Positive NRAS mutation: Negative BRAF mutation: Negative 11/29/[address] CAP Tiny indeterminate [...] neoplasm. Immunohistochemical stains were performed at [facility] (block A1). The neoplastic cells are positive for CDX2 and CK7 while negative for CK20. Comparison with prior rectal tumor biopsy ([id number]) was performed, and the present neoplasm displays [...] disease elsewhere in the abdomen or pelvis 02/19/[address] CAP showed PD with multiple enlarging hepatic metastases and new/enlarging pulm nodules (RUL: upto 0.6 cm) s/f mets. R gonadal vein filling defect may be artifactual vs thrombus. Recommend shift from 5-FU/Pamela maintenance to FOLFIRI/Pamela. INTERVAL HPI Her right foot fracture slowly healing Does not think she has received Avastin for the past 2 cycles due to dental work Is not certain whether she has been getting 5FU or FOLFIRI, though does endorse hair loss, dysgeusia, fingertips sensitivity when washing dishes. Most recent chemo dose 02/11/2024 All other systems reviewed and negative. The following portions of the patient's history were reviewed and updated as appropriate: allergies, current medications, family history, medical history, social history, surgical history, and problem list. No data recorded OBJECTIVE BP 149/74 (BP Location: Left arm, Patient Position: Sitting, Cuff Size: Large) Pulse (!) 59 Resp 15 Wt 78.1 kg SpO2 98% BMI 27.02 kg/m?? PHYSICAL EXAM Vitals reviewed. Constitutional General: She is not in acute distress. Appearance: Normal appearance. She is not diaphoretic. HENT Head: Normocephalic. Mouth/Throat: Mouth: Mucous membranes are moist. Eyes General: No scleral icterus. Extraocular Movements: Extraocular movements intact. Cardiovascular Rate and Rhythm: Normal rate. Pulmonary Effort: Pulmonary effort is normal. Abdominal General: There is no distension. Musculoskeletal General: No swelling. Skin General: Skin is dry. Coloration: Skin is not jaundiced. Neurological Mental Status: She is alert and oriented to person, place, and time. Gait: Gait abnormal (Able to transfer, but gait otherwise aided by wheelchair in clinic). Psychiatric Mood and Affect: Mood normal. Behavior: Behavior normal. Thought Content: Thought content normal. Judgment: Judgment normal. LABORATORY DATA Lab data reviewed. Lab Results Component Value Date HGB 14.1 02/19/2024 PLT 138 (L) 02/19/2024 WBC 6.7 02/19/2024 AST 22 02/19/2024 ALT 28 02/19/2024 ALKPHOS 85 02/19/2024 BILITOT 0.7 02/19/2024 NA 136 02/19/2024 KSERUM 3.9 02/19/2024 CL 102 02/19/2024 CREATININE 0.89 02/19/2024 BUN 11 02/19/2024 TSH 3.2 09/28/2021 INR 1.1 12/06/2022 GLUCOSE 94 02/19/2024 CEA 61.4 (H) 02/19/2024 RADIOLOGICAL DATA Radiology data reviewed. CT Abdomen Pelvis with IV Contrast Result Date: 02/19/2024 Impression: 1. 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 2. Apparent filling defectwithin the right gonadal vein which may be artifactual from phase of contrast versus gonadal vein thrombus. CT Chest with IV Contrast Result Date: 02/19/2024 Impression: 1. New and enlarging subcentimeter pulmonary nodules are concerning for metastatic disease. Largest nodule is approximately 6 mm in the right upper lobe. 2. Other stable pulmonary micronodules are likely benign. ASSESSMENT / PLAN #1 Malignant Neoplasm Of Rectum (HCC) #2 Secondary Malignant Neoplasm Liver (HCC) #3 Nodules Pulmonary Multiple Personally reviewed CT CAP report/images of 02/19/24 compared to 12/16/23, showing further liver progression on current chemotherapy (either 5FU/Pamela maintenance or FOLFIRI/Pamela) (see 'Radiological Data' above for impression). Unfortunately, this progression is not compatible with resection, though she had been uninterested in pursuing surgical interventions in the past. Unfortunately, we do not have her recent infusion records from [facility], so am not entirely certain how to adjust her current treatment recs with this progression and will try to obtain. That said,if she has been on 5-FU/Pamela maintenance still, then I recommend re-expansion to FOLFIRI/Pamela. If shehas been on FOLFIRI/Pamela, then I recommend considering FOLFOX+/-Pamela, unless Dr Mc has relative contraindications/other concerns with this. Reviewed AEs of these regimens. Rectum appears to maintain radiographic cCR. No LC-ELEVATOR PILOT would be planned if she does not receive surgery at all other sites of disease. Recommend proceeding with cycle of current chemo regimen as planned for tomorrow while coordinatingcare for progressive liver mets. Written diagram of potential paths forward was provided to Ms. William to review with her local team. RTC with labs/scans in 2-3 months, depending on next steps of care. ADDENDUM 03/04/24: Spoke via phone with Dr Mc who confirmed Ms Christie white been on 5-FU+/-Pamela. We will plan for FOLFIRI+/-Pamela re-expansion. PATIENT EDUCATION Ready to learn, no apparent learning barriers were identified; learning preferences include listening. Explained diagnosis and treatment plan; patient expressed understanding of the content. ADMINISTRATIVE BILLING Orders Placed This Encounter Procedures CT Abdomen Pelvis with IV Contrast CT Chest without IV Contrast Bilirubin, Direct CBC, Chemotherapy, No Alerts CEA (Carcinoembryonic Antigen) Comprehensive Metabolic Panel Oncology office visit (clinic) ET PROPELLANT PLANT SUPERVISOR documented in this encounter Plan of Treatment Upcoming Encounters Date Type Department Care Team (Latest Contact Info) Description 05/20/2024 10:30 AM ROCKET [employer]OPELLANT PLANT SUPERVISOR Clinical Communication Virtual Review in [place], [place] [address] [place] [phone] 05/21/2024 7:00 AM ROCKET PROPELLANT PLANT SUPERVISOR Appointment Department of Radiology, [facility], in [place], [place] [address] [place] [address] [place] [phone] Elisabeth Turner M.D. [address] [place] [phone] 05/21/2024 7:40 AM ROCKET PROPELLANT PLANT SUPERVISOR Lab Department of Infusion Therapy in [place], [place] [address] [place] [phone] Elisabeth Turner M.D. [address] [place] [phone] 05/21/2024 11:10 AM ROCKET [employer]OPELLANT PLANT SUPERVISOR Office Visit Department of Oncology in [place], [place] [address] [place] [phone] Johnathan José M.D. [address] [place] [phone] Scheduled Orders Name Type Priority Associated Diagnoses Order Schedule Bilirubin, Direct Lab Routine Malignant Neoplasm Of Rectum (HCC) Secondary Malignant Neoplasm Liver (HCC) Nodules Pulmonary Multiple Expected: 05/21/2024 (Approximate), Expires: 05/21/2025 CBC, Chemotherapy, No Alerts Lab Routine Malignant Neoplasm Of Rectum (HCC) Secondary Malignant Neoplasm Liver (HCC) Nodules Pulmonary Multiple Expected: 05/21/2024 (Approximate), Expires: 02/18/2025 CEA (Carcinoembryonic Antigen) Lab Routine Malignant Neoplasm Of Rectum (HCC) Secondary Malignant Neoplasm Liver (HCC) Nodules Pulmonary Multiple Expected: 05/21/2024 (Approximate), Expires: 02/18/2025 Comprehensive Metabolic Panel Lab Routine Malignant Neoplasm Of Rectum (HCC) Secondary Malignant Neoplasm Liver (HCC) Nodules Pulmonary Multiple Expected: 05/21/2024 (Approximate), Expires: 05/21/2025 CT Abdomen Pelvis with IV Contrast Imaging RAD - Routine (most inpatients and all outpatients) Malignant Neoplasm Of Rectum (HCC) Secondary Malignant Neoplasm Liver (HCC) Nodules Pulmonary Multiple Expected: 05/21/2024 (Approximate), Expires: 05/21/2025 CT Chest without IV Contrast Imaging RAD - Routine (most inpatients and all outpatients) Malignant Neoplasm Of Rectum (HCC) Secondary Malignant Neoplasm Liver (HCC) Nodules Pulmonary Multiple Expected: 05/21/2024 (Approximate), Expires: 05/21/2025 Scheduled Referrals Name Type Priority Associated Diagnoses Orde r Schedule Oncology office visit (clinic) Outpatient Referral Routine Expected: 05/21/2024 (Approximate), Expires: 05/21/2025 documented as of this encounter Visit Diagnoses Diagnosis Malignant Neoplasm Of Rectum (HCC)- Primary Secondary Malignant Neoplasm Liver (HCC) Nodules Pulmonary Multiple documented in this encounter Care Teams Student Ministries Director Relationship Specialty Start Date End Date Elsewhere, Pcp PCP - General Internal Medicine 09/26/21 documented as of this encounter
--- OUTSIDE RECORDS SUMMARY | 2024-04-02 07:04 | XMS_ITS | Encounter Summary ---
Author Organization [facility] Address [address] [place] [phone] Care Team Providers Care Mud Mixer Helper Name Role Phone Elsewhere, Pcp Primary Care Provider Unavailabl e Reason for Visit * Reason Onset Date Comments Pre-visit Intake 02/18/2024 Encounter Details Date Type Department Care Team (Latest Contact Info) Description 02/18/2024 12:00 PM DAY CARE TEACHER Clinical Communication Virtual Review in [place], [place] [address] [place] [phone] Pre-visit Intake 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 Tobacco Use Types Packs/Day Years Used Date Smoking Tobacco: Never Passive Smoke Exposure: Never Smokeless Tobacco: Never Alcohol Use Standard Drinks/Week Comments Yes 2 (1 standard drink = 0.6 oz pur e alcohol) [facility] Utilities Answer Date Recorded In the past 12 months has [facility] [employer], gas, oil, or water [employer] threatened to shut off services in your [...] How often do you attend chur or anabaptism services? Never 09/22/2021 Do you belong to any clubs o r organizations such as latter day groups, unions, fraternal or athletic groups, or [...] at all 11/22/2022 [facility]at ional [facility] - Occupational [...] money to buy more. Never true 12/10/19 24 Within the past 12 months, t he [...] your living situation today? I have a [facility] place to live 12/10/2023 Education Answer Date [...] (Latest Contact Info) Description 05/20/2024 10:30 AM DAY CARE TEACHER Clinical Communication Virtual Review in [place], [place] [address] [place] [phone] 05/21/2024 7:00 AM DAY CARE TEACHER Appointment Department of Radiology, [facility], in [place], [place] [address] [place] [phone] Elisabeth Turner M.D. [address] [place] [phone] 05/21/2024 7:40 AM DAY CARE TEACHER Lab Department of Infusion Therapy in [place], [place] [address] [place] [phone] Elisabeth Turner M.D. [address] [place] [phone] 05/21/2024 11:10 AM DAY CARE TEACHER Office Visit Department of Oncology in [place], [place] [address] [place] [phone] Johnathan José M.D. [address] [place] [phone] documented as of this encounter Visit Diagnoses Not on filedocumented in this encounter Care Teams Mud Mixer Helper Relationship Specialty Start Date End Date Elsewhere, Pcp PCP - General Internal Medicine 09/26/21 documented as of this encounter
--- OUTSIDE RECORDS SUMMARY | 2024-04-02 07:04 | XMS_ITS ---
Author Organization [facility] Address [address] [place] [phone] Care Team Providers Care Wood And Hardware Outfitter Name Role Phone Elsewhere, Pcp Primary Care Provider Unavailabl e Active Problems * This document contains information received from the source organization and may not represent a complete record from that organization. Problem Noted Date Diagnosed Date Nodules Pulmonary Multiple 12/16/2023 Secondary Malignant Neoplasm Liver 12/12/2022 Other Automobile Sales Consultant Current Drug Therapy 12/12/2022 Hypertension Essential Primary [...] treatments are documented for this patient in [facility]. Treatments may have been administered in another system. Lifetime Dose Tracking * Chemical Lifetime Dose Automatic Entry Manual Entr y Radiation 5 mGy 5 mGy 0 mGy Fluoro Time 1 minutes 1 minutes 0 minutes DAP (uGy-m2) 131.48 uGy-m2 131.48 uGy-m2 0 uGy-m2
--- OUTSIDE RECORDS SUMMARY | 2024-04-02 07:04 | XMS_ITS | Referral Summary ---
Author Organization [facility] Address [address] [place] [address] Care Team Providers Care Blend Technician Name Role Phone Elsewhere, Pcp Primary Care Provider Unavailabl e Source Comments Patient records contain information from all sites at [facility]. For routine questions regarding patient records, call [phone] during business hours, M-F 8:00 AM - 5:00 PM Central Time. Record requests for emergency care only can be directed to [phone] at any time.[facility] Encounters * This document contains information received from the source organization and may not represent a complete record from that organization. Date Type Department Care Team Description 02/19/2024 8:00 AM CROP NUTRITION SCIENTIST Lab Department of Infusion Therapy in [place], [place] [address] [place] [address] Elisabeth Turner M.D. Malignant Neoplasm Of Rectum (HCC) (Primary Dx); Secondary Malignant Neoplasm Liver (HCC) 02/19/2024 6:31 AM CROP NUTRITION SCIENTIST - 02/19/2024 11:59 PM CROP NUTRITION SCIENTIST Hospital Encounter Department of Radiology, [facility], in [place], [place] [address] [place] [address] Elisabeth Turner M.D. Malignant Neoplasm Of Rectum (HCC); Secondary Malignant Neoplasm Liver (HCC) Discharge Disposition: Home or Self Care 02/19/2024 3:20 PM CROP NUTRITION SCIENTIST Office Visit Department of Oncology in [place], [place] [address] [place] [address] Elisabeth Turner M.D. Malignant Neoplasm Of Rectum (HCC) (Primary Dx); Secondary Malignant Neoplasm Liver (HCC); Nodules Pulmonary Multiple 02/18/2024 12:00 PM CROP NUTRITION SCIENTIST Clinical Communication Virtual Review in [place], [place] 200 [place] [address] Pre-visit Intake from Last 3 Months Allergies Active Allergy [...] 12/16/2023 Secondary Malignant Neoplasm Liver 12/12/2022 Other Residential Current Drug Therapy 12/12/2022 Hypertension Essential Primary [...] drink = 0.6 oz pur e alcohol) [facility] Utilities Answer Date Recorded In the past 12 months has [facility] [employer], [employer], or water [employer] threatened to shut off services in your [...] often do you attend chur ch or taoism services? Never 09/22/2021 Do you belong to any clubs o r organizations such as anabaptism groups, unions, fraternal [...] heating? Not hard at all 11/22/2022 [facility] - [...] your living situation today? I have a [facility] place to live 12/10/2023 Education Answer [...] Comments Blood Pressure 149/74 02/19/2024 4:30 PM CROP NUTRITION SCIENTIST Pulse 59 02/19/2024 4:30 PM CROP NUTRITION SCIENTIST Temperature 36.8 C (98.2 F) 12/16/2023 11:27 AM CDT Respiratory Rate 15 02/19/2024 4:30 PM CROP NUTRITION SCIENTIST Oxygen Saturation 98% 02/19/2024 4:30 PM CROP NUTRITION SCIENTIST Inhaled Oxygen Concentration - - Weight 78.1 kg (172 lb 2.9 oz) 02/19/2024 4:30 P M CROP NUTRITION SCIENTIST Height 170 cm (5' 6.93) 12/16/2023 11:27 AM CDT Body Mass Index 27.02 12/16/2023 11:27 AM CDT Plan of Treatment Upcoming Encounters Date Type Department Care Team (Latest Contact Info) Description 05/20/2024 10:30 AM CROP NUTRITION SCIENTIST Clinical Communication Virtual Review in [place], [place] [address] [place] [address] 05/21/2024 7:00 AM CROP NUTRITION SCIENTIST Appointment Department of Radiology, [facility], in [address] [address] Elisabeth Turner M.D. [address] [place] [phone] 05/21/2024 7:40 AM CROP NUTRITION SCIENTIST Lab Department of Infusion Therapy in [address] [phone] Elisabeth Turner M.D. [address] [place] [phone] 05/21/2024 11:10 AM CROP NUTRITION SCIENTIST Office Visit Department of Oncology in [address] [address] Johnathan José M.D. [address] [place] [phone] Medical Devices Implanted Type Area Cable Splicer Helper Device Identifier Shelf Expiration Date Model / Serial / Lot Hardware E.G. Pins/Screws/R ods Hardware e.g. pins/screws/clayton s Right: Wrist Description:Titanium plate Prt Cath Infus Mri Intrmd 8f - [id number] Implanted:Qty : 1 on 12/17/2022 by Alfie Merino M.D. at T [facility] Implantable [employer] 05/29/2024 [id number] / / [id number] Procedures Procedure Name Priority Date/Time Associated Diagnosis Comments COMPREHENSIVE METABOLIC PANEL, S/P Routine 02/19/2024 8:27 AM CROP NUTRITION SCIENTIST Malignant Neoplasm Of Rectum (HCC) Secondary Malignant Neoplasm Liver (HCC) CARCINOEMBRYONIC AG (CEA), S Routine 02/19/2024 8:27 AM CROP NUTRITION SCIENTIST Malignant Neoplasm Of Rectum (HCC) Secondary Malignant Neoplasm Liver (HCC) CBC CHEMO - NO ALERTS Routine 02/19/2024 8:27 AM CROP NUTRITION SCIENTIST Malignant Neoplasm Of Rectum (HCC) Secondary Malignant Neoplasm Liver (HCC) BILIRUBIN DIRECT, S/P Routine 02/19/2024 8:27 AM CROP NUTRITION SCIENTIST Malignant Neoplasm Of Rectum (HCC) Secondary Malignant Neoplasm Liver (HCC) CT CHEST WITH IV CONTRAST RAD - Routine (most inpatients and all outpatients) 02/19/2024 7:52 AM CROP NUTRITION SCIENTIST Malignant Neoplasm Of Rectum (HCC) Secondary Malignant Neoplasm Liver (HCC) CT ABDOMEN PELVIS WITH IV CONTRAST RAD - Routine (most inpatients and all outpatients) 02/19/2024 7:52 AM CROP NUTRITION SCIENTIST Malignant Neoplasm Of Rectum (HCC) Secondary Malignant Neoplasm Liver (HCC) from Last 3 Months Results * (ABNORMAL) CBC, Chemotherapy, No Alerts (02/19/2024 8:27 AM CROP NUTRITION SCIENTIST) Hemoglobin 14.1 11.6 - 15.0 g/dL 02/19/2024 9:27 AM CROP NUTRITION SCIENTIST DTL Platelet Count 138(L) 157 - 371 x10(9)/L 02/19/2024 9:27 AM CROP NUTRITION SCIENTIST DTL Leukocytes 6.7 3.4 - 9.6 x10(9)/L 02/19/2024 9:27 AM CROP NUTRITION SCIENTIST DTL Neutrophils 3.32 1.56 - 6.45 x10(9)/L 02/19/2024 9:27 [address] [facility] Blood (Blood, Venous) 02/19/2024 8:27 AM CROP NUTRITION SCIENTIST 02/19/2024 8:39 AM CROP NUTRITION SCIENTIST Elisabeth Turner M.D. LAB BLOOD ADD-ON Final R esult [facility] [address] [place] [address], [facility] DTL [facility] [address] [place] [address] [facility] [address] [place] [address] * (ABNORMAL) CEA (Carcinoembryonic Antigen) (02/19/2024 8:27 AM CROP NUTRITION SCIENTIST) Pathologist [facility] Carcinoembryonic Ag (CEA), S 61.4(H) ng/mL 02/19/2024 1:25 PM CROP NUTRITION SCIENTIST [facility] Comment: ----REFERENCE VALUE---- <=3.0 (Non-smokers) Some smokers may have elevated CEA, usually <5.0. ----ADDITIONAL INFORMATION---- The testing method is an immunoenzymatic assay manufactured by [employer]. and performed on the [employer] 800. Values obtained with different assay methods or kits may be different and cannot be used interchangeably. Test results cannot be interpreted as absolute evidence for the presence or absence of malignant disease. Blood (Blood, Venous) 02/19/2024 8:27 AM CROP NUTRITION SCIENTIST 02/19/2024 12:32 PM CROP NUTRITION SCIENTIST Elisabeth Turner M.D. LAB BLOOD ADD-ON Final R esult [facility] [address] [place] [address] [facility] [address] [place] [address] * Bilirubin, Direct (02/19/2024 8:27 AM CROP NUTRITION SCIENTIST) Pathologist [facility] Bilirubin, Direct, S <0.2 0.0 - 0.3 mg/dL 02/19/2024 9:25 AM CROP NUTRITION SCIENTIST DT Blood (Blood, Venous) 02/19/2024 8:27 AM CROP NUTRITION SCIENTIST 02/19/2024 9:05 AM CROP NUTRITION SCIENTIST Elisabeth Turner M.D. LAB BLOOD ADD-ON Final R esult [facility] [address] [place] [address], [facility] DTL [facility] [address] [place] [address] * (ABNORMAL) Comprehensive Metabolic Panel (02/19/2024 8:27 AM CROP NUTRITION SCIENTIST) Pathologist [facility] Potassium, S 3.9 3.6 - 5.2 mmol/L 02/19/2024 9:25 AM CROP NUTRITION SCIENTIST DTL Sodium, S 136 135 - 145 mmol/L 02/19/2024 9:25 AM CROP NUTRITION SCIENTIST DTL Chloride, S 102 98 - 107 mmol/L 02/19/2024 9:25 AM CROP NUTRITION SCIENTIST DTL Bicarbonate, S 24 22 - 29 mmol/L 02/19/2024 9:25 AM CROP NUTRITION SCIENTIST DTL Anion Gap 10 7 - 15 02/19/2024 9:25 AM CROP NUTRITION SCIENTIST DTL BUN (Blood Urea Nitrogen), S 11 6 - 21 mg/dL 02/19/2024 9:25 AM CROP NUTRITION SCIENTIST DTL Creatinine 0.89 0.59 - 1.04 mg/dL 02/19/2024 9:25 AM CROP NUTRITION SCIENTIST DTL Estimated GFR (eGFR) 67 >=60 mL/min/BS A 02/19/2024 9:25 AM CROP NUTRITION SCIENTIST DTL Comment: Estimated GFR calculated using the 2020 CKD_EPI creatinine equation. Calcium, Total, S 9.1 8.8 - 10.2 mg/dL 02/19/2024 9:25 AM CROP NUTRITION SCIENTIST DTL Glucose, S 94 70 - 140 mg/dL 02/19/2024 9:25 AM CROP NUTRITION SCIENTIST DTL Protein, Total, S 6.1(L) 6.3 - 7.9 g/dL 02/19/2024 9:25 AM CROP NUTRITION SCIENTIST DTL Albumin, S 4.0 3.5 - 5.0 g/dL 02/19/2024 9:25 AM CROP NUTRITION SCIENTIST DTL Aspartate Aminotransferase (AST), S 22 8 - 43 U/L 02/19/2024 9:25 AM CROP NUTRITION SCIENTIST DTL Alkaline Phosphatase, S 85 35 - 104 U/L 02/19/2024 9:25 AM CROP NUTRITION SCIENTIST DTL Alanine Aminotransferase (ALT), S 28 7 - 45 U/L 02/19/2024 9:25 AM CROP NUTRITION SCIENTIST DTL Bilirubin, Total, S 0.7 0.0 - 1.2 mg/dL 02/19/2024 9:25 AM CROP NUTRITION SCIENTIST DTL Blood (Blood, Venous) 02/19/2024 8:27 AM CROP NUTRITION SCIENTIST 02/19/2024 9:05 AM CROP NUTRITION SCIENTIST Elisabeth Turner M.D. LAB BLOOD ADD-ON Final R esult [facility] [address] [place] [address], [place] DTL [facility] [address] [place] [address] * CT Abdomen Pelvis with IV Contrast (02/19/2024 7:52 AM CROP NUTRITION SCIENTIST) Anatomical Region Laterality Modality Abdomen, Pelvis, Abdominal R ST LOS, Abdominal ARZ LOS, Abdominal FLA LOS N/A Computed Tomograp hy, Computed Tomography 02/19/2024 7:45 AM CROP NUTRITION SCIENTIST Impressions 02/19/2024 2:06 PM CROP NUTRITION SCIENTIST 1. 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 2. Apparent filling defect within the right gonadal vein which may be artifactual from phase of contrast versus gonadal vein thrombus. Narrative 02/19/2024 2:06 PM CROP NUTRITION SCIENTIST EXAM: CT ABDOMEN PELVIS WITH IV CONTRAST [...] III metastases measures 1.3 x 1 cm ([id number], image 33), previously 0.5 x 0.5 cm. [...] versus gonadal vein thrombus. Elisabeth Turner M.D. Shae CT PROCEDURES Final Result * CT Chest with IV Contrast (02/19/2024 7:52 AM CROP NUTRITION SCIENTIST) Anatomical Region Laterality Modality Chest, Thoracic RST LOS, Tho racic ARZ LOS, Thoracic ARZ LOS, Thoracic FLA LOS N/A Computed Tomography, Compute d Tomography 02/19/2024 7:45 AM CROP NUTRITION SCIENTIST Impressions 02/19/2024 9:57 AM CROP NUTRITION SCIENTIST 1. New and enlarging subcentimeter pulmonary nodules are concerning for metastatic disease. Largest nodule is approximately 6 mm in the right upper lobe. 2. Other stable pulmonary micronodules are likely benign. Narrative 02/19/2024 9:57 AM CROP NUTRITION SCIENTIST EXAM: CT CHEST WITH IV CONTRAST COMPARISON: [...] subsolid nodule in the left lower lobe ([id number], image 269) is new. These findings are [...] micronodules are likely benign. Elisabeth Turner M.D. IMShae CT PROCEDURES Final Result from Last 3 Months Insurance [facility] MEDIC[facility] Care Teams Blend Technician Relationship Specialty Start Date End Date Elsewhere, Pcp PCP - General Internal Medicine 09/26/21
--- OUTSIDE RECORDS SUMMARY | 2024-04-02 07:04 | XMS_ITS ---
Author Organization [facility] Address [address] [place] [address] Care Team Providers Care Home Care Attendant Name Role Phone Unavailable Unavailable Unavailable Surgery Details Not on file Complications Check Surgery Details section. Procedure Estimated Blood Loss Check Surgery Details section. Procedure Findings Check Surgery Details section. Procedure Specimens Taken Check Surgery Details section.
--- OUTSIDE RECORDS SUMMARY | 2024-04-02 07:04 | XMS_ITS | Encounter Summary ---
Author Organization [facility] Address [address] [place] [address] Care Team Providers Care Concrete Grinder Operator Name Role Phone Elsewhere, Pcp Primary Care Provider Unavailabl e Encounter Details Date Type Department Care Team (Late st Contact Info) Description 02/19/2024 8:00 AM REFRIGERATION PERSON Lab Department of Infusion Therapy in [place], [place] [address] [place] [address] Elisabeth Turner M.D. [address] [place] [phone] Malignant Neoplasm Of Rectum (HCC) (Primary Dx); Secondary Malignant Neoplasm Liver (HCC) 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 Tobacco Use Types Packs/Day Years Used Date Smoking Tobacco: Never Passive Smoke Exposure: Never Smokeless Tobacco: Never Alcohol Use Standard Drinks/Week Comments Yes 2 (1 standard drink = 0.6 oz pur e alcohol) [facility] Utilities Answer Date Recorded In the past 12 months has [employer], gas, oil, or water [employer] threatened to shut off services in your [...] How often do you attend chur or anglican services? Never 09/22/2021 Do you [...] living situation today? I have a [facility] place to live 12/10/2023 Education Answer Date [...] (Latest Contact Info) Description 05/20/2024 10:30 AM REFRIGERATION PERSON Clinical Communication Virtual Review in [place], [place] [address] [place] [address] 05/21/2024 7:00 AM REFRIGERATION PERSON Appointment Department of Radiology, [facility], in [place], [place] [address] [place] [phone] Elisabeth Turner M.D. [address] [place] [address] 05/21/2024 7:40 AM REFRIGERATION PERSON Lab Department of Infusion Therapy in [place], [place] [address] [place] [phone] Elisabeth Turner M.D. [address] [place] [phone] 05/21/2024 11:10 AM REFRIGERATION PERSON Office Visit Department of Oncology in [place], [place] [address] [place] [phone] Johnathan José M.D. [address] [place] [phone] documented as of this encounter Procedures Procedure Name Priority Date/Time Associated Diagnosis Comments CBC CHEMO - NO ALERTS Routine 02/19/2024 8:27 AM REFRIGERATION PERSON Malignant Neoplasm Of Rectum (HCC) Secondary Malignant Neoplasm Liver (HCC) CARCINOEMBRYONIC AG (CEA), S Routine 02/19/2024 8:27 AM REFRIGERATION PERSON Malignant Neoplasm Of Rectum (HCC) Secondary Malignant Neoplasm Liver (HCC) BILIRUBIN DIRECT, S/P Routine 02/19/2024 8:27 AM REFRIGERATION PERSON Malignant Neoplasm Of Rectum (HCC) Secondary Malignant Neoplasm Liver (HCC) COMPREHENSIVE METABOLIC PANEL, S/P Routine 02/19/2024 8:27 AM REFRIGERATION PERSON Malignant Neoplasm Of Rectum (HCC) Secondary Malignant Neoplasm Liver (HCC) documented in this encounter Results * (ABNORMAL) Comprehensive Metabolic Panel (02/19/2024 8:27 AM REFRIGERATION PERSON) Potassium, S 3.9 3.6 - 5.2 mmol/L 02/19/2024 9:25 AM REFRIGERATION PERSON DTL Sodium, S 136 135 - 145 mmol/L 02/19/2024 9:25 AM REFRIGERATION PERSON DTL Chloride, S 102 98 - 107 mmol/L 02/19/2024 9:25 AM REFRIGERATION PERSON DTL Bicarbonate, S 24 22 - 29 mmol/L 02/19/2024 9:25 AM REFRIGERATION PERSON DTL Anion Gap 10 7 - 15 02/19/2024 9:25 AM REFRIGERATION PERSON DTL BUN (Blood Urea Nitrogen), S 11 6 - 21 mg/dL 02/19/2024 9:25 AM REFRIGERATION PERSON DTL Creatinine 0.89 0.59 - 1.04 mg/dL 02/19/2024 9:25 AM REFRIGERATION PERSON DTL Estimated GFR (eGFR) 67 >=60 mL/min/BS A 02/19/2024 9:25 AM REFRIGERATION PERSON DTL Comment: Estimated GFR calculated using the 2020 CKD_EPI creatinine equation. Calcium, Total, S 9.1 8.8 - 10.2 mg/dL 02/19/2024 9:25 AM REFRIGERATION PERSON DTL Glucose, S 94 70 - 140 mg/dL 02/19/2024 9:25 AM REFRIGERATION PERSON DTL Protein, Total, S 6.1(L) 6.3 - 7.9 g/dL 02/19/2024 9:25 AM REFRIGERATION PERSON DTL Albumin, S 4.0 3.5 - 5.0 g/dL 02/19/2024 9:25 AM REFRIGERATION PERSON DTL Aspartate Aminotransferase (AST), S 22 8 - 43 U/L 02/19/2024 9:25 AM REFRIGERATION PERSON DTL Alkaline Phosphatase, S 85 35 - 104 U/L 02/19/2024 9:25 AM REFRIGERATION PERSON DTL Alanine Aminotransferase (ALT), S 28 7 - 45 U/L 02/19/2024 9:25 AM REFRIGERATION PERSON DTL Bilirubin, Total, S 0.7 0.0 - 1.2 mg/dL 02/19/2024 9:25 AM REFRIGERATION PERSON DTL Blood (Blood, Venous) 02/19/2024 8:27 AM REFRIGERATION PERSON 02/19/2024 9:05 AM REFRIGERATION PERSON us Elisabeth Turner M.D. LAB BLOOD ADD-ON Final R esult [facility] [address] [place] [address], [place] DTL [facility] [address] [place] [address] * (ABNORMAL) CEA (Carcinoembryonic Antigen) (02/19/2024 8:27 AM REFRIGERATION PERSON) Pathologist [facility] Carcinoembryonic Ag (CEA), S 61.4(H) ng/mL 02/19/2024 1:25 PM REFRIGERATION PERSON [facility] Comment: ----REFERENCE VALUE---- <=3.0 (Non-smokers) Some smokers may have elevated CEA, usually <5.0. ----ADDITIONAL INFORMATION---- The testing method is an immunoenzymatic assay manufactured by [employer]. and performed on the [employer] DxI 800. Values obtained with different assay methods or kits may be different and cannot be used interchangeably. Test results cannot be interpreted as absolute evidence for the presence or absence of malignant disease. Blood (Blood, Venous) 02/19/2024 8:27 AM REFRIGERATION PERSON 02/19/2024 12:32 PM REFRIGERATION PERSON Elisabeth Turner M.D. LAB BLOOD ADD-ON Final R esult Performing Organization Address City/State/[facility] Co de Phone Number [facility] [address] [place] [address] [facility] [address] [place] [address] * (ABNORMAL) CBC, Chemotherapy, No Alerts (02/19/2024 8:27 AM REFRIGERATION PERSON) [facility] Hemoglobin 14.1 11.6 - 15.0 g/dL 02/19/2024 9:27 AM REFRIGERATION PERSON DTL Platelet Count 138(L) 157 - 371 x10(9)/L 02/19/2024 9:27 AM REFRIGERATION PERSON DTL Leukocytes 6.7 3.4 - 9.6 x10(9)/L 02/19/2024 9:27 AM REFRIGERATION PERSON DTL Neutrophils 3.32 1.56 - 6.45 x10(9)/L 02/19/2024 9:27 AM REFRIGERATION PERSON [facility] Blood (Blood, Venous) 02/19/2024 8:27 AM REFRIGERATION PERSON 02/19/2024 8:39 AM REFRIGERATION PERSON Elisabeth Turner M.D. LAB BLOOD ADD-ON Final R esult Performing Organization Address City/[facility] Co de Phone Number [facility] [address] [place] [address], [facility] [address] [place] [address] [facility] [address] [place] [address] * Bilirubin, Direct (02/19/2024 8:27 AM REFRIGERATION PERSON) Bilirubin, Direct, S <0.2 0.0 - 0.3 mg/dL 02/19/2024 9:25 AM REFRIGERATION PERSON DT Blood (Blood, Venous) 02/19/2024 8:27 AM REFRIGERATION PERSON 02/19/2024 9:05 AM REFRIGERATION PERSON Elisabeth Turner M.D. LAB BLOOD ADD-ON Final R MostLikely Performing Organization Address City/[facility] Co de Phone Number [facility] [address] [place] [address], [facility] [address] [place] [address] documented in this encounter Visit Diagnoses Diagnosis Malignant Neoplasm Of Rectum (HCC)- Primary Secondary Malignant Neoplasm Liver (HCC) documented in this encounter Administered Medications Inactive Administered Medications - up to 3 most recent administrations Medication Order MAR Action Action Date Dose Rate Site heparin flush 500 Units 500 Units, intra-catheter, As needed, line care, Starting on Sat02/19/24 at 0817, When IVAD accessed and not infusing: When no infusion to maintain patency flush every 7 days following NaCL flush. 5 mL (500 units) of Heparin 100 units/mL to each port/lumen. When IVAD not accessed or infusing: When no infusion to maintain patency flush every 28 days following NaCL flush. 5 mL (500 units) of Heparin 100 units/mL to each port/lumen.Indications:Malignan t Neoplasm Of Rectum (HCC) Given 02/19/2024 8:31 AM REFRIGERATION PERSON 500 Units sodium chloride 0.9 % injection 20-40 mL 20-40 mL, intra-catheter, As needed, line care, Starting on Sat02/19/24 at 0817, When IVAD accessed and infusing: Flush prior to blood sampling, post blood transfusion or post blood sampling. 20 mL to each port/lumen.Indications:Malignan t Neoplasm Of Rectum (HCC) Given 02/19/2024 8:31 AM REFRIGERATION PERSON 20 mL documented in this encounter Care Teams Concrete Grinder Operator Relationship Specialty Start Date End Date Elsewhere, Pcp PCP - General Internal Medicine 09/26/21 documented as of this encounter
--- OUTSIDE RECORDS SUMMARY | 2024-04-02 07:04 | XMS_ITS | Encounter Summary ---
Author Organization [facility] Address [address] [place] [address] Care Team Providers Care Head Of History Name Role Phone Elsewhere, Pcp Primary Care Provider Unavailabl e Reason for Referral * MRI/CAT/PET Scan (Routine) - Closed Specialty Diagnoses / Procedures Referred By Tammy stone Referred To Contact Radiology Diagnoses Malignant Neoplasm Of Rectum (HCC) Secondary Malignant Neoplasm Liver (HCC) Procedures CT Chest with IV Contrast CT Chest without IV Contrast Elisabeth Turner M.D. [address] [place] [address] Phone: tel: fax: [facility] Referral ID Status Reason Start Date Expiration Date Visits Re quested Visits Authorized [id number] Closed 12/16/2023 12/15/2024 1 1 RECOVERY PLANNER * MRI/CAT/PET Scan (Routine) - Closed Specialty Diagnoses / Procedures Referred By Tammy stone Referred To Contact Radiology Diagnoses Malignant Neoplasm Of Rectum (HCC) Secondary Malignant Neoplasm Liver (HCC) Procedures CT Abdomen Pelvis with IV Contrast Elisabeth Turner M.D. [address] [place] [address] Phone: tel: fax: [facility] Referral ID Status Reason Start Date Expiration Date Visits Re quested Visits Authorized [id number] Closed 12/16/2023 12/15/2024 1 1 RECOVERY PLANNER Reason for Visit * MRI/CAT/PET Scan (Routine) - Closed Specialty Diagnoses / Procedures Referred By Tammy stone Referred To Contact Radiology Diagnoses Malignant Neoplasm Of Rectum (HCC) Secondary Malignant Neoplasm Liver (HCC) Procedures CT Abdomen Pelvis with IV Contrast Elisabeth Turner M.D. [address] [place] [address] Phone: tel: fax: [facility] Referral ID Status Reason Start Date Expiration Date Visits Re quested Visits Authorized [id number] Closed 12/16/2023 12/15/2024 1 1 Encounter Details Date Type Department Care Team (Latest Contact Info) Description 02/19/2024 6:31 AM DATA RECOVERY PLANNER - 02/19/2024 11:59 PM DATA RECOVERY PLANNER Hospital Encounter Department of Radiology, [facility], in [place], [place] [address] [place] [address] Elisabeth Turner M.D. [address] [place] [address] Malignant Neoplasm Of Rectum (HCC); Secondary Malignant Neoplasm Liver (HCC) Discharge Disposition: Home or Self Care 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 Tobacco Use Types Packs/Day Years Used Date Smoking Tobacco: Never Passive Smoke Exposure: Never Smokeless Tobacco: Never Alcohol Use Standard Drinks/Week Comments Yes 2 (1 standard drink = 0.6 oz pur e alcohol) [facility] Utilities Answer Date Recorded In the past 12 months has e [employer], oil, or water [employer] threatened to shut off services in your [...] often do you attend chur ch or confucianist services? Never 09/22/2021 Do you [...] heating? Not hard at all 11/22/2022 [facility] - [...] a [facility] 12/10/2023 Education Answer [...] this encounter Medications at Time of Discharge amoxicillin (AmoxiL) 500 mg tablet TAKE 4 TABLETS BY MOUTH 1 HOUR BEFORE DENTAL APPTS 01/23/[address] tablet Take 81 mg by mouth daily. cholecalciferol (Vitamin D3) 25 mcg (1,000 Unit) capsule Take 25 mcg by mouth daily. 01/01/2022 cyanocobalamin (VITAMIN B12) 1,000 mcg tablet Take 1 tablet by mouth daily. 07/10/2017 dexAMETHasone (DECADRON) 4 mg tabletIndication s:Malignant Neoplasm Of Rectum (HCC),Secondary Malignant Neoplasm Liver (HCC) Take 2 tablets (8 mg total) by mouth daily. Take daily for 3 days, starting the day after chemotherapy ends of each cycle. 6 tablet 3 12/24/2022 diphenhydrAMINE- acetaminophen (TYLENOL PM) 25-500 mg per tablet Take 0.5 tablets by mouth at bedtime as needed for sleep. hydroCHLOROthiaz tahmina (HYDRODIURIL) 12.5 mg tablet Take 12.5 mg [...] Take 1 capsule by mouth daily. 02/09/2020 polyethylene glycol (MIRALAX) 17 gram powder packet Take 17 g by mouth daily as needed. potassium chloride (K-TAB) 20 mEq CR tablet Take 2 tablets by mouth daily. 2 tablets on Saturday, Saturday, & Saturday. 3 tablets on Saturday, Saturday, Saturday, & . 01/23/2023 sertraline (ZOLOFT) 50 mg tablet Take 50 mg by mouth daily. 09/02/2023 simvastatin (ZOCOR) 20 mg tablet Take 1 tablet by mouth daily. 07/10/2017 documented as of this encounter Plan of Treatment Upcoming Encounters Date Type Department Care Team (Latest Contact Info) Description 05/20/2024 10:30 AM DATA RECOVERY PLANNER Clinical Communication Virtual Review in [place], [place] [address] [place] [address] 05/21/2024 7:00 AM DATA RECOVERY PLANNER Appointment Department of Radiology, [facility], in [place], [place] [address] [place] [phone] Elisabeth Turner M.D. [address] [place] [phone] 05/21/2024 7:40 AM DATA RECOVERY PLANNER Lab Department of Infusion Therapy in [place], [place] [address] [place] [address] [phone] Elisabeth Turner M.D. [address] [place] [address] 05/21/2024 11:10 AM DATA RECOVERY PLANNER Office Visit Department of Oncology in [place], [place] [address] [place] [address] Johnathan José M.D. [address] [place] [phone] documented as of this encounter Procedures Procedure Name Priority Date/Time Associated Diagnosis Comments CT ABDOMEN PELVIS WITH IV CONTRAST RAD - Routine (most inpatients and all outpatients) 02/19/2024 7:52 AM DATA RECOVERY PLANNER Malignant Neoplasm Of Rectum (HCC) Secondary Malignant Neoplasm Liver (HCC) CT CHEST WITH IV CONTRAST RAD - Routine (most inpatients and all outpatients) 02/19/2024 7:52 AM DATA RECOVERY PLANNER Malignant Neoplasm Of Rectum (HCC) Secondary Malignant Neoplasm Liver (HCC) documented in this encounter Results * CT Chest with IV Contrast (02/19/2024 7:52 AM DATA RECOVERY PLANNER) Anatomical Region Laterality Modality Chest, Thoracic RST LOS, Tho racic ARZ LOS, Thoracic ARZ LOS, Thoracic FLA LOS N/A Computed Tomography, Compute d Tomography 02/19/2024 7:45 AM DATA RECOVERY PLANNER Impressions 02/19/2024 9:57 AM DATA RECOVERY PLANNER 1. New and enlarging subcentimeter pulmonary nodules are concerning for metastatic disease. Largest nodule is approximately 6 mm in the right upper lobe. 2. Other stable pulmonary micronodules are likely benign. Narrative 02/19/2024 9:57 AM DATA RECOVERY PLANNER EXAM: CT CHEST WITH IV CONTRAST COMPARISON: [...] subsolid nodule in the left lower lobe ([id number], image 269) is new. These findings are [...] micronodules are likely benign. Elisabeth Turner M.D. Shae CT PROCEDURES Final Result * CT Abdomen Pelvis with IV Contrast (02/19/2024 7:52 AM DATA RECOVERY PLANNER) Anatomical Region Laterality Modality Abdomen, Pelvis, Abdominal R ST LOS, Abdominal ARZ LOS, Abdominal FLA LOS N/A Computed Tomograp hy, Computed Tomography 02/19/2024 7:45 AM DATA RECOVERY PLANNER Impressions 02/19/2024 2:06 PM DATA RECOVERY PLANNER 1. 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 2. Apparent filling defect within the right gonadal vein which may be artifactual from phase of contrast versus gonadal vein thrombus. Narrative 02/19/2024 2:06 PM DATA RECOVERY PLANNER EXAM: CT ABDOMEN PELVIS WITH IV CONTRAST [...] III metastases measures 1.3 x 1 cm ([id number], image 33), previously 0.5 x 0.5 cm. [...] versus gonadal vein thrombus. Elisabeth Turner M.D. [facility] CT PROCEDURES Final Result documented in this encounter Visit Diagnoses Diagnosis Malignant Neoplasm Of Rectum (HCC) Secondary Malignant Neoplasm Liver (HCC) documented in this encounter Administered Medications Inactive Administered Medications - up to 3 most recent administrations Medication Order MAR Action Action Date Dose Rate Site heparin flush 500-1,000 Units 500-1,000 Units, intra-catheter, During hospitalization, line care, Prior to discharge, Starting on Sat02/19/24 at 0653, For 1 dose, Implanted Vascular Access Device (IVAD) Venous Non-Valved: flush 5 mL (500 units) per port/lumen following saline flush prior to discharge. Given 02/19/2024 7:51 AM DATA RECOVERY PLANNER 500 Units iohexoL 300 mg iodine/mL solution 1-200 mL (Omnipaque) 1-200 mL, intravenous, Once in imaging, contrast, Starting on Sat02/19/24 at 0639, For 1 dose, Imaging Protocol Orders, Dose per Radiant Medication Guidelines Given 02/19/2024 7:31 AM DATA RECOVERY PLANNER 140 mL sodium chloride (PF) 0.9 % injection 1-100 mL 1-100 mL, intravenous, Once, On Sat02/19/24 at 0700, For 1 dose, Imaging Protocol Orders, Dose per Radiant Medication Guidelines Given 02/19/2024 7:32 AM DATA RECOVERY PLANNER 50 mL sodium chloride 0.9 % injection 10-20 mL 10-20 mL, intravenous, During hospitalization, line care, Prior to discharge, Starting on Sat02/19/24 at 0653, For 1 dose, Implanted Vascular Access Device (IVAD) Venous Non-Valved: Flush 10 mL per port/lumen followed by heparin flush prior to discharge. Given 02/19/2024 7:51 AM DATA RECOVERY PLANNER 10 mL sodium chloride 0.9 % injection 10-20 mL 10-20 mL, intravenous, As needed, line care, Starting on Sat02/19/24 at 0653, Implanted Vascular Access Device (IVAD) Venous Non-Valved: When no infusion to maintain patency, flush 10 mL per port/lumen followed by heparin flush. Given 02/19/2024 6:56 AM DATA RECOVERY PLANNER 10 mL documented in this encounter Care Teams Head Of History Relationship Specialty Start Date End Date Elsewhere, Pcp PCP - General Internal Medicine 09/26/21 documented as of this encounter
[2024-04-02] MEDS: SODIUM CHLORIDE 0.9 % (FLUSH) 10 ML SYRINGE IVF (12:14)
[2024-04-02] MEDS: HEPARIN 500 UNIT/5 ML SYRINGE IVF (12:14)
[2024-04-02 12:15] VITALS: BP 120/71; PULSE 64; RESP 16; TEMP 36.3; O2SAT 98
--- OUTSIDE RECORDS SUMMARY | 2024-04-03 07:23 | XMS_ITS ---
Author Organization [facility] Address [address] [place] [phone] Care Team Providers Care Pan Shover Name Role Phone Elsewhere, Pcp Primary Care Provider Unavailabl e Active Problems * This document contains information received from the source organization and may not represent a complete record from that organization. 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 Treatments may have been administered in another system. Lifetime Dose Tracking * Chemical Lifetime Dose Automatic Entry Manual Entr y Radiation 5 mGy 5 mGy 0 mGy Fluoro Time 1 minutes 1 minutes 0 minutes DAP (uGy-m2) 131.48 uGy-m2 131.48 uGy-m2 0 uGy-m2
--- OUTSIDE RECORDS SUMMARY | 2024-04-03 07:23 | XMS_ITS ---
Author Organization [facility] Address [address] [place] [phone] Care Team Providers Care Etcher [employer] Boards Name Role Phone Unavailable Unavailable Unavailable Surgery Details Not on file Complications Check Surgery Details section. Procedure Estimated Blood Loss Check Surgery Details section. Procedure Findings Check Surgery Details section. Procedure Specimens Taken Check Surgery Details section.
--- OUTSIDE RECORDS SUMMARY | 2024-04-03 07:23 | XMS_ITS | Encounter Summary ---
Author Organization [facility] Address [address] [place] [address] Care Team Providers Care Securities Research Analyst Name Role Phone Elsewhere, Pcp Primary Care Provider Unavailabl e Encounter Details Date Type Department Care Team (Late st Contact Info) Description 02/19/2024 8:00 AM WET PROCESS HEAD MILLER Lab Department of Infusion Therapy in [place], [place] [address] [place] [address] Elisabeth Truner M.D. [address] [place] [phone] Malignant Neoplasm Of Rectum (HCC) (Primary Dx); Secondary Malignant Neoplasm Liver (HCC) 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 Tobacco Use Types Packs/Day Years Used Date Smoking Tobacco: Never Passive Smoke Exposure: Never Smokeless Tobacco: Never Alcohol Use Standard Drinks/Week Comments Yes 2 (1 standard drink = 0.6 oz pur e alcohol) [facility] Utilities Answer Date Recorded In the past 12 months has [employer], gas, oil, or water [employer] threatened to shut off services in your [...] How often do you attend chur or taoist services? Never 09/22/2021 Do you belong to [...] and heating? Not hard at all 11/22/2022 [facility] - Occupational [...] your living situation today? I have a [facility] place to live 12/10/2023 Education Answer [...] (Latest Contact Info) Description 05/20/2024 10:30 AM WET PROCESS HEAD MILLER Clinical Communication Virtual Review in [place], [place] [address] [place] [phone] 05/21/2024 7:00 AM WET PROCESS HEAD MILLER Appointment Department of Radiology, [facility], in [place], [place] [address] [place] [phone] Elisabeth Turner M.D. [address] [place] [address] 05/21/2024 7:40 AM WET PROCESS HEAD MILLER Lab Department of Infusion Therapy in [place], [place] [address] [place] [phone] Elisabeth Turner M.D. [address] [place] [phone] 05/21/2024 11:10 AM WET PROCESS HEAD MILLER Office Visit Department of Oncology in [place], [place] [address] [place] [phone] Johnathan José M.D. [address] [place] [phone] documented as of this encounter Procedures Procedure Name Priority Date/Time Associated Diagnosis Comments CBC CHEMO - NO ALERTS Routine 02/19/2024 8:27 AM WET PROCESS HEAD MILLER Malignant Neoplasm Of Rectum (HCC) Secondary Malignant Neoplasm Liver (HCC) CARCINOEMBRYONIC AG (CEA), S Routine 02/19/2024 8:27 AM WET PROCESS HEAD MILLER Malignant Neoplasm Of Rectum (HCC) Secondary Malignant Neoplasm Liver (HCC) BILIRUBIN DIRECT, S/P Routine 02/19/2024 8:27 AM WET PROCESS HEAD MILLER Malignant Neoplasm Of Rectum (HCC) Secondary Malignant Neoplasm Liver (HCC) COMPREHENSIVE METABOLIC PANEL, S/P Routine 02/19/2024 8:27 AM WET PROCESS HEAD MILLER Malignant Neoplasm Of Rectum (HCC) Secondary Malignant Neoplasm Liver (HCC) documented in this encounter Results * (ABNORMAL) Comprehensive Metabolic Panel (02/19/2024 8:27 AM WET PROCESS HEAD MILLER) Potassium, S 3.9 3.6 - 5.2 mmol/L 02/19/2024 9:25 AM WET PROCESS HEAD MILLER DTL Sodium, S 136 135 - 145 mmol/L 02/19/2024 9:25 AM WET PROCESS HEAD MILLER DTL Chloride, S 102 98 - 107 mmol/L 02/19/2024 9:25 AM WET PROCESS HEAD MILLER DTL Bicarbonate, S 24 22 - 29 mmol/L 02/19/2024 9:25 AM WET PROCESS HEAD MILLER DTL Anion Gap 10 7 - 15 02/19/2024 9:25 AM WET PROCESS HEAD MILLER DTL BUN (Blood Urea Nitrogen), S 11 6 - 21 mg/dL 02/19/2024 9:25 AM WET PROCESS HEAD MILLER DTL Creatinine 0.89 0.59 - 1.04 mg/dL 02/19/2024 9:25 AM WET PROCESS HEAD MILLER DTL Estimated GFR (eGFR) 67 >=60 mL/min/BS A 02/19/2024 9:25 AM WET PROCESS HEAD MILLER DTL Comment: Estimated GFR calculated using the 2020 CKD_EPI creatinine equation. Calcium, Total, S 9.1 8.8 - 10.2 mg/dL 02/19/2024 9:25 AM WET PROCESS HEAD MILLER DTL Glucose, S 94 70 - 140 mg/dL 02/19/2024 9:25 AM WET PROCESS HEAD MILLER DTL Protein, Total, S 6.1(L) 6.3 - 7.9 g/dL 02/19/2024 9:25 AM WET PROCESS HEAD MILLER DTL Albumin, S 4.0 3.5 - 5.0 g/dL 02/19/2024 9:25 AM WET PROCESS HEAD MILLER DTL Aspartate Aminotransferase (AST), S 22 8 - 43 U/L 02/19/2024 9:25 AM WET PROCESS HEAD MILLER DTL Alkaline Phosphatase, S 85 35 - 104 U/L 02/19/2024 9:25 AM WET PROCESS HEAD MILLER DTL Alanine Aminotransferase (ALT), S 28 7 - 45 U/L 02/19/2024 9:25 AM WET PROCESS HEAD MILLER DTL Bilirubin, Total, S 0.7 0.0 - 1.2 mg/dL 02/19/2024 9:25 AM WET PROCESS HEAD MILLER DTL Blood (Blood, Venous) 02/19/2024 8:27 AM WET PROCESS HEAD MILLER 02/19/2024 9:05 AM WET PROCESS HEAD MILLER us Elisabeth Turner M.D. LAB BLOOD ADD-ON Final R esult [facility] [address] [place] [address], [place] DTL [facility] [address] [place] [address] * (ABNORMAL) CEA (Carcinoembryonic Antigen) (02/19/2024 8:27 AM WET PROCESS HEAD MILLER) Pathologist [facility] Carcinoembryonic Ag (CEA), S 61.4(H) ng/mL 02/19/2024 1:25 PM WET PROCESS HEAD MILLER [facility] Comment: ----REFERENCE VALUE---- <=3.0 (Non-smokers) Some smokers may have elevated CEA, usually <5.0. ----ADDITIONAL INFORMATION---- The testing method is an immunoenzymatic assay manufactured by [employer]. and performed on the [employer] DxI 800. Values obtained with different assay methods or kits may be different and cannot be used interchangeably. Test results cannot be interpreted as absolute evidence for the presence or absence of malignant disease. Blood (Blood, Venous) 02/19/2024 8:27 AM WET PROCESS HEAD MILLER 02/19/2024 12:32 PM WET PROCESS HEAD MILLER Elisabeth Turner M.D. LAB BLOOD ADD-ON Final R esult Performing Organization Address City/State/[facility] Co de Phone Number [facility] [address] [place] [address] [facility] [address] [place] [address] * (ABNORMAL) CBC, Chemotherapy, No Alerts (02/19/2024 8:27 AM WET PROCESS HEAD MILLER) [facility] Hemoglobin 14.1 11.6 - 15.0 g/dL 02/19/2024 9:27 AM WET PROCESS HEAD MILLER DTL Platelet Count 138(L) 157 - 371 x10(9)/L 02/19/2024 9:27 AM WET PROCESS HEAD MILLER DTL Leukocytes 6.7 3.4 - 9.6 x10(9)/L 02/19/2024 9:27 AM WET PROCESS HEAD MILLER DTL Neutrophils 3.32 1.56 - 6.45 x10(9)/L 02/19/2024 9:27 AM WET PROCESS HEAD MILLER [facility] Blood (Blood, Venous) 02/19/2024 8:27 AM WET PROCESS HEAD MILLER 02/19/2024 8:39 AM WET PROCESS HEAD MILLER Elisabeth Turner M.D. LAB BLOOD ADD-ON Final R esult Performing Organization Address City/[facility] Co de Phone Number [facility] [place] [address] [place] [address], [facility] [address] [place] [address] [facility] [address] [place] [address] * Bilirubin, Direct (02/19/2024 8:27 AM WET PROCESS HEAD MILLER) Bilirubin, Direct, S <0.2 0.0 - 0.3 mg/dL 02/19/2024 9:25 AM WET PROCESS HEAD MILLER DT Blood (Blood, Venous) 02/19/2024 8:27 AM WET PROCESS HEAD MILLER 02/19/2024 9:05 AM WET PROCESS HEAD MILLER Elisabeth Turner M.D. LAB BLOOD ADD-ON Final R Myrio Solution Performing Organization Address City/[facility] Co de Phone Number [facility] [place] [address] [place] [address], [facility] [address] [place] [address] documented in this encounter Visit Diagnoses Diagnosis [...] Of Rectum (HCC) Given 02/19/2024 8:31 AM WET PROCESS HEAD MILLER 500 Units sodium chloride 0.9 % injection 20-40 mL 20-40 mL, intra-catheter, As needed, line care, Starting on Sat02/19/24 at 0817, When IVAD accessed and infusing: Flush prior to blood sampling, post blood transfusion or post blood sampling. 20 mL to each port/lumen.Indications:Malignan t Neoplasm Of Rectum (HCC) Given 02/19/2024 8:31 AM WET PROCESS HEAD MILLER 20 mL documented in this encounter Care Teams Securities Research Analyst Relationship Specialty Start Date End Date Elsewhere, Pcp PCP - General Internal Medicine 09/26/21 documented as of this encounter
--- OUTSIDE RECORDS SUMMARY | 2024-04-03 07:23 | XMS_ITS | Clinical Summary ---
Author Organization [facility] Address [address] [place] [address] Care Team Providers Care Waxing Machine Operator Helper Name Role Phone Elsewhere, Pcp Primary Care Provider Unavailabl e Source Comments Patient records contain information from all sites at [facility]. For routine questions regarding patient records, call [phone] during business hours, M-F 8:00 AM - 5:00 PM Central Time. Record requests for emergency care only can be directed to [phone] at any time.[facility] Allergies Active Allergy Reactions Criticality Noted Date [...] 12/16/2023 Secondary Malignant Neoplasm Liver 12/12/2022 Other Group Home Current Drug Therapy 12/12/2022 Hypertension Essential Primary [...] Department Care Team Description 02/19/2024 3:20 PM FILE CLERK Office Visit Department of Oncology in [address] [phone] Elisabeth Turner M.D. Malignant Neoplasm Of Rectum (HCC) (Primary Dx); Secondary Malignant Neoplasm Liver (HCC); Nodules Pulmonary Multiple 02/19/2024 8:00 AM FILE CLERK Lab Department of Infusion Therapy in [address] [address] Elisabeth Turner M.D. Malignant Neoplasm Of Rectum (HCC) (Primary Dx); Secondary Malignant Neoplasm Liver (HCC) 02/19/2024 6:31 AM FILE CLERK - 02/19/2024 11:59 PM FILE CLERK Hospital Encounter Department of Radiology, [facility], in [address] [address] Elisabeth Turner M.D. Malignant Neoplasm Of Rectum (HCC); Secondary Malignant Neoplasm Liver (HCC) Discharge Disposition: Home or Self Care 02/18/2024 12:00 PM FILE CLERK Clinical Communication Virtual Review in [place], [place] [address] [place] [address] Pre-visit Intake from Last 3 Months Family [...] drink = 0.6 oz pur e alcohol) [facility] Utilities Answer Date Recorded In the past 12 months has e [employer], gas, oil, or water [employer] threatened to shut off services in your [...] How often do you attend chur or anabaptist services? Never 09/22/2021 Do you belong to any clubs o r organizations such as anglican groups, unions, fraternal or athletic groups, or [...] and heating? Not hard at all 11/22/2022 [facility] [place] of Occupat ional Health - Occupational Stress [...] your living situation today? I have a [facility] place to live 12/10/2023 Education Answer [...] Comments Blood Pressure 149/74 02/19/2024 4:30 PM FILE CLERK Pulse 59 02/19/2024 4:30 PM FILE CLERK Temperature 36.8 C (98.2 F) 12/16/2023 11:27 AM CDT Respiratory Rate 15 02/19/2024 4:30 PM FILE CLERK Oxygen Saturation 98% 02/19/2024 4:30 PM FILE CLERK Inhaled Oxygen Concentration - - Weight 78.1 kg (172 lb 2.9 oz) 02/19/2024 4:30 P M FILE CLERK Height 170 cm (5' 6.93) 12/16/2023 11:27 AM CDT Body Mass Index 27.02 12/16/2023 11:27 AM CDT Plan of Treatment Upcoming Encounters Date Type Department Care Team (Latest Contact Info) Description 05/20/2024 10:30 AM FILE CLERK Clinical Communication Virtual Review in [place], [place] [address] [place] [address] 05/21/2024 7:00 AM FILE CLERK Appointment Department of Radiology, [facility], in [place], [place] [address] [place] [phone] Elisabeth Turner M.D. [address] [place] [phone] 05/21/2024 7:40 AM FILE CLERK Lab Department of Infusion Therapy in [address] [address] Elisabeth Turner M.D. [address] [place] [phone] 05/21/2024 11:10 AM FILE CLERK Office Visit Department of Oncology in [address] [address] Johnathan José M.D. [address] [place] [phone] Health Maintenance Due Date Last Done Comments [...] this topic Medical Devices Implanted Type Area Film Processor Device Identifier Shelf Expiration Date Model / Serial / Lot Hardware E.G. Pins/Screws/R ods Hardware e.g. pins/screws/clayton s Right: Wrist Description:Titanium plate Prt Cath Infus Mri Intrmd 8f - [id number] Implanted:Qty : 1 on 12/17/2022 by Alfie Merino M.D. at [facility] Implantable [employer] 05/29/2024 [id number] / / [id number] Procedures Procedure Name Priority Date/Time Associated Diagnosis Comments COMPREHENSIVE METABOLIC PANEL, S/P Routine 02/19/2024 8:27 AM FILE CLERK Malignant Neoplasm Of Rectum (HCC) Secondary Malignant Neoplasm Liver (HCC) CARCINOEMBRYONIC AG (CEA), S Routine 02/19/2024 8:27 AM FILE CLERK Malignant Neoplasm Of Rectum (HCC) Secondary Malignant Neoplasm Liver (HCC) CBC CHEMO - NO ALERTS Routine 02/19/2024 8:27 AM FILE CLERK Malignant Neoplasm Of Rectum (HCC) Secondary Malignant Neoplasm Liver (HCC) BILIRUBIN DIRECT, S/P Routine 02/19/2024 8:27 AM FILE CLERK Malignant Neoplasm Of Rectum (HCC) Secondary Malignant Neoplasm Liver (HCC) CT CHEST WITH IV CONTRAST RAD - Routine (most inpatients and all outpatients) 02/19/2024 7:52 AM FILE CLERK Malignant Neoplasm Of Rectum (HCC) Secondary Malignant Neoplasm Liver (HCC) CT ABDOMEN PELVIS WITH IV CONTRAST RAD - Routine (most inpatients and all outpatients) 02/19/2024 7:52 AM FILE CLERK Malignant Neoplasm Of Rectum (HCC) Secondary Malignant Neoplasm Liver (HCC) from Last 3 Months Results * (ABNORMAL) CBC, Chemotherapy, No Alerts (02/19/2024 8:27 AM FILE CLERK) Pathologist [facility] [place] Hemoglobin 14.1 11.6 - 15.0 g/dL 02/19/2024 9:27 AM FILE CLERK DTL Platelet Count 138(L) 157 - 371 x10(9)/L 02/19/2024 9:27 AM FILE CLERK DTL Leukocytes 6.7 3.4 - 9.6 x10(9)/L 02/19/2024 9:27 AM FILE CLERK DTL Neutrophils 3.32 1.56 - 6.45 x10(9)/L 02/19/2024 9:27 AM FILE CLERK [facility] Blood (Blood, Venous) 02/19/2024 8:27 AM FILE CLERK 02/19/2024 8:39 AM FILE CLERK Elisabeth Turner M.D. LAB BLOOD ADD-ON Final R esult [facility] [place] [address] [place] [address], [place] DTL [facility] [address] [place] [address] [facility] [address] [place] [address] * (ABNORMAL) CEA (Carcinoembryonic Antigen) (02/19/2024 8:27 AM FILE CLERK) Carcinoembryonic Ag (CEA), S 61.4(H) ng/mL 02/19/2024 1:25 PM FILE CLERK [facility] Comment: ----REFERENCE VALUE---- <=3.0 (Non-smokers) Some smokers may have elevated CEA, usually <5.0. ----ADDITIONAL INFORMATION---- The testing method is an immunoenzymatic assay manufactured by [employer]. and performed on the HBCS DxI 800. Values obtained with different assay methods or kits may be different and cannot be used interchangeably. Test results cannot be interpreted as absolute evidence for the presence or absence of malignant disease. Blood (Blood, Venous) 02/19/2024 8:27 AM FILE CLERK 02/19/2024 12:32 PM FILE CLERK Elisabeth Turner M.D. LAB BLOOD ADD-ON Final R esult Performing Organization Address City/[facility]/ZIP Co de Phone Number [facility] [address] [place] [address] [facility] [address] [place] [address] * Bilirubin, Direct (02/19/2024 8:27 AM FILE CLERK) Bilirubin, Direct, S <0.2 0.0 - 0.3 mg/dL 02/19/2024 9:25 AM FILE CLERK DT Blood (Blood, Venous) 02/19/2024 8:27 AM FILE CLERK 02/19/2024 9:05 AM FILE CLERK Elisabeth Turner M.D. LAB BLOOD ADD-ON Final R esult Performing Organization Address [facility]/ZIP Co de Phone Number [facility] [place] [address] [place] [address], [facility] [address] [place] [address] * (ABNORMAL) Comprehensive Metabolic Panel (02/19/2024 8:27 AM FILE CLERK) Potassium, S 3.9 3.6 - 5.2 mmol/L 02/19/2024 9:25 AM FILE CLERK DTL Sodium, S 136 135 - 145 mmol/L 02/19/2024 9:25 AM FILE CLERK DTL Chloride, S 102 98 - 107 mmol/L 02/19/2024 9:25 AM FILE CLERK DTL Bicarbonate, S 24 22 - 29 mmol/L 02/19/2024 9:25 AM FILE CLERK DTL Anion Gap 10 7 - 15 02/19/2024 9:25 AM FILE CLERK DTL BUN (Blood Urea Nitrogen), S 11 6 - 21 mg/dL 02/19/2024 9:25 AM FILE CLERK DTL Creatinine 0.89 0.59 - 1.04 mg/dL 02/19/2024 9:25 AM FILE CLERK DTL Estimated GFR (eGFR) 67 >=60 mL/min/BS A 02/19/2024 9:25 AM FILE CLERK DTL Comment: Estimated GFR calculated using the 2020 CKD_EPI creatinine equation. Calcium, Total, S 9.1 8.8 - 10.2 mg/dL 02/19/2024 9:25 AM FILE CLERK DTL Glucose, S 94 70 - 140 mg/dL 02/19/2024 9:25 AM FILE CLERK DTL Protein, Total, S 6.1(L) 6.3 - 7.9 g/dL 02/19/2024 9:25 AM FILE CLERK DTL Albumin, S 4.0 3.5 - 5.0 g/dL 02/19/2024 9:25 AM FILE CLERK DTL Aspartate Aminotransferase (AST), S 22 8 - 43 U/L 02/19/2024 9:25 AM FILE CLERK DTL Alkaline Phosphatase, S 85 35 - 104 U/L 02/19/2024 9:25 AM FILE CLERK DTL Alanine Aminotransferase (ALT), S 28 7 - 45 U/L 02/19/2024 9:25 AM FILE CLERK DTL Bilirubin, Total, S 0.7 0.0 - 1.2 mg/dL 02/19/2024 9:25 AM FILE CLERK DTL Blood (Blood, Venous) 02/19/2024 8:27 AM FILE CLERK 02/19/2024 9:05 AM FILE CLERK Elisabeth Turner M.D. LAB BLOOD ADD-ON Final R esult [facility] [place] [address] [place] [address], [place] DTL [facility] [address] [place] [address] * CT Abdomen Pelvis with IV Contrast (02/19/2024 7:52 AM FILE CLERK) Anatomical Region Laterality Modality Abdomen, Pelvis, Abdominal R ST LOS, Abdominal ARZ LOS, Abdominal FLA LOS N/A Computed Tomograp hy, Computed Tomography 02/19/2024 7:45 AM FILE CLERK Impressions 02/19/2024 2:06 PM FILE CLERK 1. 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 2. Apparent filling defect within the right gonadal vein which may be artifactual from phase of contrast versus gonadal vein thrombus. Narrative 02/19/2024 2:06 PM FILE CLERK EXAM: CT ABDOMEN PELVIS WITH IV CONTRAST [...] III metastases measures 1.3 x 1 cm ([id number], image 33), previously 0.5 x 0.5 cm. [...] versus gonadal vein thrombus. Elisabeth Turner M.D. [facility] PROCEDURES Final Result * CT Chest with IV Contrast (02/19/2024 7:52 AM FILE CLERK) Anatomical Region Laterality Modality Chest, Thoracic RST LOS, Tho racic ARZ LOS, Thoracic ARZ LOS, Thoracic FLA LOS N/A Computed Tomography, Compute d Tomography 02/19/2024 7:45 AM FILE CLERK Impressions 02/19/2024 9:57 AM FILE CLERK 1. New and enlarging subcentimeter pulmonary nodules are concerning for metastatic disease. Largest nodule is approximately 6 mm in the right upper lobe. 2. Other stable pulmonary micronodules are likely benign. Narrative 02/19/2024 9:57 AM FILE CLERK EXAM: CT CHEST WITH IV CONTRAST COMPARISON: [...] subsolid nodule in the left lower lobe ([id number], image 269) is new. These findings are [...] Final Result from Last 3 Months Insurance [facility] MEDICARE Care Teams Waxing Machine Operator Helper Relationship Specialty Start Date End Date Elsewhere, Pcp PCP - General Internal Medicine 09/26/21
--- OUTSIDE RECORDS SUMMARY | 2024-04-03 07:23 | XMS_ITS | Referral Summary ---
Author Organization [facility] Address [address] [place] [id number] Care Team Providers Care Rail Car Repairman Name Role Phone Elsewhere, Pcp Primary Care Provider Unavailabl e Source Comments Patient records contain information from all sites at [facility]. For routine questions regarding patient records, call [phone] during business hours, M-F 8:00 AM - 5:00 PM Central Time. Record requests for emergency care only can be directed to [phone] at any time.[facility] Encounters * This document contains information received from the source organization and may not represent a complete record from that organization. Date Type Department Care Team Description 02/19/2024 8:00 AM VIRGINIA LINE ATTENDANT Lab Department of Infusion Therapy in [place], [place] [address] [place] [address] Elisabeth Turner M.D. Malignant Neoplasm Of Rectum (HCC) (Primary Dx); Secondary Malignant Neoplasm Liver (HCC) 02/19/2024 6:31 AM VIRGINIA LINE ATTENDANT - 02/19/2024 11:59 PM VIRGINIA LINE ATTENDANT Hospital Encounter Department of Radiology, [facility], in [place], [place] [address] [place] [address] Elisabeth Turner M.D. Malignant Neoplasm Of Rectum (HCC); Secondary Malignant Neoplasm Liver (HCC) Discharge Disposition: Home or Self Care 02/19/2024 3:20 PM VIRGINIA LINE ATTENDANT Office Visit Department of Oncology in [place], [place] [address] [place] [address] Elisabeth Turner M.D. 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 [employer], or water [employer] threatened to shut off services in your [...] often do you attend chur ch or mu-ism services? Never 09/22/2021 Do you belong to any clubs o r organizations such as yazidi groups, unions, fraternal or athletic groups, or [...] heating? Not hard at all 11/22/2022 [facility] of Occupat ional Health - Occupational Stress [...] your living situation today? [facility] 12/10/2023 Education Answer Date [...] Comments Blood Pressure 149/74 02/19/2024 4:30 PM VIRGINIA LINE ATTENDANT Pulse 59 02/19/2024 4:30 PM VIRGINIA LINE ATTENDANT Temperature 36.8 C (98.2 F) 12/16/2023 11:27 AM CDT Respiratory Rate 15 02/19/2024 4:30 PM VIRGINIA LINE ATTENDANT Oxygen Saturation 98% 02/19/2024 4:30 PM VIRGINIA LINE ATTENDANT Inhaled Oxygen Concentration - - Weight 78.1 kg (172 lb 2.9 oz) 02/19/2024 4:30 P M VIRGINIA LINE ATTENDANT Height 170 cm (5' 6.93) 12/16/2023 11:27 AM CDT Body Mass Index 27.02 12/16/2023 11:27 AM CDT Plan of Treatment Upcoming Encounters Date Type Department Care Team (Latest Contact Info) Description 05/20/2024 10:30 AM VIRGINIA LINE ATTENDANT Clinical Communication Virtual Review in [place], [place] [address] [place] [address] 05/21/2024 7:00 AM VIRGINIA LINE ATTENDANT Appointment Department of Radiology, [facility], in [address] [phone] Elisabeth Turner M.D. [address] [place] [phone] 05/21/2024 7:40 AM VIRGINIA LINE ATTENDANT Lab Department of Infusion Therapy in [address] [phone] Elisabeth Turner M.D. [address] [place] [phone] 05/21/2024 11:10 AM VIRGINIA LINE ATTENDANT Office Visit Department of Oncology in [address] [address] Johnathan José M.D. [address] [place] [phone] Medical Devices Implanted Type Area Marketing Content Specialist Device Identifier Shelf Expiration Date Model / Serial / Lot Hardware E.G. Pins/Screws/R ods Hardware e.g. pins/screws/clayton s Right: Wrist Description:Titanium plate Prt Cath Infus Mri Intrmd 8f - [id number] Implanted:Qty : 1 on 12/17/2022 by Alfie Merino M.D. at [facility] Implantable [employer] 05/29/2024 [id number] / / [id number] Procedures Procedure Name Priority Date/Time Associated Diagnosis Comments COMPREHENSIVE METABOLIC PANEL, S/P Routine 02/19/2024 8:27 AM VIRGINIA LINE ATTENDANT Malignant Neoplasm Of Rectum (HCC) Secondary Malignant Neoplasm Liver (HCC) CARCINOEMBRYONIC AG (CEA), S Routine 02/19/2024 8:27 AM VIRGINIA LINE ATTENDANT Malignant Neoplasm Of Rectum (HCC) Secondary Malignant Neoplasm Liver (HCC) CBC CHEMO - NO ALERTS Routine 02/19/2024 8:27 AM VIRGINIA LINE ATTENDANT Malignant Neoplasm Of Rectum (HCC) Secondary Malignant Neoplasm Liver (HCC) BILIRUBIN DIRECT, S/P Routine 02/19/2024 8:27 AM VIRGINIA LINE ATTENDANT Malignant Neoplasm Of Rectum (HCC) Secondary Malignant Neoplasm Liver (HCC) CT CHEST WITH IV CONTRAST RAD - Routine (most inpatients and all outpatients) 02/19/2024 7:52 AM VIRGINIA LINE ATTENDANT Malignant Neoplasm Of Rectum (HCC) Secondary Malignant Neoplasm Liver (HCC) CT ABDOMEN PELVIS WITH IV CONTRAST RAD - Routine (most inpatients and all outpatients) 02/19/2024 7:52 AM VIRGINIA LINE ATTENDANT Malignant Neoplasm Of Rectum (HCC) Secondary Malignant Neoplasm Liver (HCC) from Last 3 Months Results * (ABNORMAL) CBC, Chemotherapy, No Alerts (02/19/2024 8:27 AM VIRGINIA LINE ATTENDANT) Hemoglobin 14.1 11.6 - 15.0 g/dL 02/19/2024 9:27 AM VIRGINIA LINE ATTENDANT DTL Platelet Count 138(L) 157 - 371 x10(9)/L 02/19/2024 9:27 AM VIRGINIA LINE ATTENDANT DTL Leukocytes 6.7 3.4 - 9.6 x10(9)/L 02/19/2024 9:27 AM VIRGINIA LINE ATTENDANT DTL Neutrophils 3.32 1.56 - 6.45 x10(9)/L 02/19/2024 9:27 AM VIRGINIA LINE ATTENDANT [facility] Blood (Blood, Venous) 02/19/2024 8:27 AM VIRGINIA LINE ATTENDANT 02/19/2024 8:39 AM VIRGINIA LINE ATTENDANT Elisabeth Turner M.D. LAB BLOOD ADD-ON Final R esult [facility] [address] [place] [address], [facility] DTL [facility] [address] [place] [address] [facility] [address] [place] [address] * (ABNORMAL) CEA (Carcinoembryonic Antigen) (02/19/2024 8:27 AM VIRGINIA LINE ATTENDANT) Pathologist [facility] Carcinoembryonic Ag (CEA), S 61.4(H) ng/mL 02/19/2024 1:25 PM VIRGINIA LINE ATTENDANT [facility] Comment: ----REFERENCE VALUE---- <=3.0 (Non-smokers) Some smokers may have elevated CEA, usually <5.0. ----ADDITIONAL INFORMATION---- The testing method is an immunoenzymatic assay manufactured by [employer]. and performed on the [place] REOI 800. Values obtained with different assay methods or kits may be different and cannot be used interchangeably. Test results cannot be interpreted as absolute evidence for the presence or absence of malignant disease. Blood (Blood, Venous) 02/19/2024 8:27 AM VIRGINIA LINE ATTENDANT 02/19/2024 12:32 PM VIRGINIA LINE ATTENDANT Elisabeth Turner M.D. LAB BLOOD ADD-ON Final R esult [facility] [address] [place] [address] [facility] [address] [place] [address] * Bilirubin, Direct (02/19/2024 8:27 AM VIRGINIA LINE ATTENDANT) Pathologist [facility] Bilirubin, Direct, S <0.2 0.0 - 0.3 mg/dL 02/19/2024 9:25 AM VIRGINIA LINE ATTENDANT DT Blood (Blood, Venous) 02/19/2024 8:27 AM VIRGINIA LINE ATTENDANT 02/19/2024 9:05 AM VIRGINIA LINE ATTENDANT Elisabeth Turner M.D. LAB BLOOD ADD-ON Final R esult [facility] [address] [place] [address], [facility] DTL [facility] [address] [place] [address] * (ABNORMAL) Comprehensive Metabolic Panel (02/19/2024 8:27 AM VIRGINIA LINE ATTENDANT) Pathologist [facility] Potassium, S 3.9 3.6 - 5.2 mmol/L 02/19/2024 9:25 AM VIRGINIA LINE ATTENDANT DTL Sodium, S 136 135 - 145 mmol/L 02/19/2024 9:25 AM VIRGINIA LINE ATTENDANT DTL Chloride, S 102 98 - 107 mmol/L 02/19/2024 9:25 AM VIRGINIA LINE ATTENDANT DTL Bicarbonate, S 24 22 - 29 mmol/L 02/19/2024 9:25 AM VIRGINIA LINE ATTENDANT DTL Anion Gap 10 7 - 15 02/19/2024 9:25 AM VIRGINIA LINE ATTENDANT DTL BUN (Blood Urea Nitrogen), S 11 6 - 21 mg/dL 02/19/2024 9:25 AM VIRGINIA LINE ATTENDANT DTL Creatinine 0.89 0.59 - 1.04 mg/dL 02/19/2024 9:25 AM VIRGINIA LINE ATTENDANT DTL Estimated GFR (eGFR) 67 >=60 mL/min/BS A 02/19/2024 9:25 AM VIRGINIA LINE ATTENDANT DTL Comment: Estimated GFR calculated using the 2020 CKD_EPI creatinine equation. Calcium, Total, S 9.1 8.8 - 10.2 mg/dL 02/19/2024 9:25 AM VIRGINIA LINE ATTENDANT DTL Glucose, S 94 70 - 140 mg/dL 02/19/2024 9:25 AM VIRGINIA LINE ATTENDANT DTL Protein, Total, S 6.1(L) 6.3 - 7.9 g/dL 02/19/2024 9:25 AM VIRGINIA LINE ATTENDANT DTL Albumin, S 4.0 3.5 - 5.0 g/dL 02/19/2024 9:25 AM VIRGINIA LINE ATTENDANT DTL Aspartate Aminotransferase (AST), S 22 8 - 43 U/L 02/19/2024 9:25 AM VIRGINIA LINE ATTENDANT DTL Alkaline Phosphatase, S 85 35 - 104 U/L 02/19/2024 9:25 AM VIRGINIA LINE ATTENDANT DTL Alanine Aminotransferase (ALT), S 28 7 - 45 U/L 02/19/2024 9:25 AM VIRGINIA LINE ATTENDANT DTL Bilirubin, Total, S 0.7 0.0 - 1.2 mg/dL 02/19/2024 9:25 AM VIRGINIA LINE ATTENDANT DTL Blood (Blood, Venous) 02/19/2024 8:27 AM VIRGINIA LINE ATTENDANT 02/19/2024 9:05 AM VIRGINIA LINE ATTENDANT Elisabeth Turner M.D. LAB BLOOD ADD-ON Final R esult [facility] [address] [place] [address], [place] DTL [facility] [address] [place] [address] * CT Abdomen Pelvis with IV Contrast (02/19/2024 7:52 AM VIRGINIA LINE ATTENDANT) Anatomical Region Laterality Modality Abdomen, Pelvis, Abdominal R ST LOS, Abdominal ARZ LOS, Abdominal FLA LOS N/A Computed Tomograp hy, Computed Tomography 02/19/2024 7:45 AM VIRGINIA LINE ATTENDANT Impressions 02/19/2024 2:06 PM VIRGINIA LINE ATTENDANT 1. 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 2. Apparent filling defect within the right gonadal vein which may be artifactual from phase of contrast versus gonadal vein thrombus. Narrative 02/19/2024 2:06 PM VIRGINIA LINE ATTENDANT EXAM: CT ABDOMEN PELVIS WITH IV CONTRAST [...] III metastases measures 1.3 x 1 cm ([id number], image 33), previously 0.5 x 0.5 cm. [...] versus gonadal vein thrombus. Elisabeth Turner M.D. [facility] CT PROCEDURES Final Result * CT Chest with IV Contrast (02/19/2024 7:52 AM VIRGINIA LINE ATTENDANT) Anatomical Region Laterality Modality Chest, Thoracic RST LOS, Tho racic ARZ LOS, Thoracic ARZ LOS, Thoracic FLA LOS N/A Computed Tomography, Compute d Tomography 02/19/2024 7:45 AM VIRGINIA LINE ATTENDANT Impressions 02/19/2024 9:57 AM VIRGINIA LINE ATTENDANT 1. New and enlarging subcentimeter pulmonary nodules are concerning for metastatic disease. Largest nodule is approximately 6 mm in the right upper lobe. 2. Other stable pulmonary micronodules are likely benign. Narrative 02/19/2024 9:57 AM VIRGINIA LINE ATTENDANT EXAM: CT CHEST WITH IV CONTRAST COMPARISON: [...] subsolid nodule in the left lower lobe ([id number], image 269) is new. These findings are [...] Final Result from Last 3 Months Insurance [facility] MEDICARE Care Teams Rail Car Repairman Relationship Specialty Start Date End Date Elsewhere, Pcp PCP - General Internal Medicine 09/26/21
--- OUTSIDE RECORDS SUMMARY | 2024-04-03 07:24 | XMS_ITS | Encounter Summary ---
Author Organization [facility] Address [address] [place] [id number] Care Team Providers Care Expeditionary Fighting Vehicle Crewman Name Role Phone Elsewhere, Pcp Primary Care Provider Unavailabl e Reason for Visit * Reason Onset Date Comments Pre-visit Intake 02/18/2024 Encounter Details Date Type Department Care Team (Latest Contact Info) Description 02/18/2024 12:00 PM WORK ADJUSTMENT INSTRUCTOR Clinical Communication Virtual Review in [place], [place] 200 [place] [address] Pre-visit Intake 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 Tobacco Use Types Packs/Day Years Used Date Smoking Tobacco: Never Passive Smoke Exposure: Never Smokeless Tobacco: Never Alcohol Use Standard Drinks/Week Comments Yes 2 (1 standard drink = 0.6 oz pur e alcohol) [facility] Utilities Answer Date Recorded In the past 12 months has [facility] [employer], gas, oil, or water [facility] threatened to shut off services in your [...] How often do you attend chur or alevism services? Never 09/22/2021 Do you belong to any clubs o r organizations such as yazidism groups, unions, fraternal or athletic groups, or [...] and heating? Not hard at all 11/22/2022 [facility] of Occupat ional Health - Occupational Stress [...] your living situation today? I have a [facility] place to live 12/10/2023 Education [...] (Latest Contact Info) Description 05/20/2024 10:30 AM WORK ADJUSTMENT INSTRUCTOR Clinical Communication Virtual Review in [place], [place] 200 [place] [phone] 05/21/2024 7:00 AM WORK ADJUSTMENT INSTRUCTOR Appointment Department of Radiology, [facility], in [place], [place] [address] [place] [phone] Elisabeth Turner M.D. [address] [place] [phone] 05/21/2024 7:40 AM WORK ADJUSTMENT INSTRUCTOR Lab Department of Infusion Therapy in [place], [place] [address] [place] [phone] Elisabeth Turner M.D. [address] [place] [address] 05/21/2024 11:10 AM WORK ADJUSTMENT INSTRUCTOR Office Visit Department of Oncology in [place], [place] [address] [place] [address] Johnathan José M.D. [address] [place] [phone] documented as of this encounter Visit Diagnoses Not on filedocumented in this encounter Care Teams Expeditionary Fighting Vehicle Crewman Relationship Specialty Start Date End Date Elsewhere, Pcp PCP - General Internal Medicine 09/26/21 documented as of this encounter
--- OUTSIDE RECORDS SUMMARY | 2024-04-03 07:24 | XMS_ITS | Encounter Summary ---
Author Organization [facility] Address [address] [place] [address] Care Team Providers Care Department Head Name Role Phone Elsewhere, Pcp Primary Care Provider Unavailabl e Reason for Referral * Outpatient (Routine) - Authorized Specialty Diagnoses / Procedures Referred By Tammy t Referred To Contact Oncology Elisabeth Turner M.D. 200 [place] [address] Phone: tel: fax: [facility] Referral ID Status Reason Start Date Expiration Date V isits Requested Visits Authorized [id number] Authorized 02/19/2024 08/20/2025 1 1 Scheduling Instructions Schedule with Dr José first choice, MARGA care team second choice, [facility] care team third choice. IC ACID PLANT OPERATOR * MRI/CAT/PET Scan (Routine) - Authorized Specialty Diagnoses / Procedures Referred By Contac t Referred To Contact Radiology Diagnoses Malignant Neoplasm Of Rectum (HCC) Secondary Malignant Neoplasm Liver (HCC) Nodules Pulmonary Multiple Procedures CT Chest without IV Contrast Elisabeth Turner M.D. 200 [place] [address] Phone: tel: fax: [facility] Referral ID Status Reason Start Date Expiration Date V isits Requested Visits Authorized [id number] Authorized 02/19/2024 02/18/2025 1 1 IC ACID PLANT OPERATOR * MRI/CAT/PET Scan (Routine) - Authorized Specialty Diagnoses / Procedures Referred By Tammy stone Referred To Contact Radiology Diagnoses Malignant Neoplasm Of Rectum (HCC) Secondary Malignant Neoplasm Liver (HCC) Nodules Pulmonary Multiple Procedures CT Abdomen Pelvis with IV Contrast Elisabeth Turner M.D. [address] [place] [phone] Phone: tel: fax: [facility] Referral ID Status Reason Start Date Expiration Date V isits Requested Visits Authorized [id number] Authorized 02/19/2024 02/18/2025 1 1 IC ACID PLANT OPERATOR Reason for Visit * Outpatient (Routine) - Closed Specialty Diagnoses / Procedures Referred By Tammy stone Referred To Contact Oncology Elisabeth Turner M.D. [address] [place] [phone] Phone: tel: fax: [facility] Referral ID Status Reason Start Date Expiration Date Visits Re quested Visits Authorized [id number] Closed 12/16/2023 06/16/2025 1 1 Encounter Details Date Type Department Care Team (Late st Contact Info) Description 02/19/2024 3:20 PM NITRIC ACID PLANT OPERATOR Office Visit Department of Oncology in [place], [place] [address] [place] [phone] Elisabeth Turner M.D. [address] [place] [phone] Malignant Neoplasm Of Rectum (HCC) (Primary Dx); Secondary Malignant Neoplasm Liver (HCC); Nodules Pulmonary Multiple 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 Tobacco Use Types Packs/Day Years Used Date Smoking Tobacco: Never Passive Smoke Exposure: Never Smokeless Tobacco: Never Alcohol Use Standard Drinks/Week Comments Yes 2 (1 standard drink = 0.6 oz pur e alcohol) [facility] Utilities Answer Date Recorded In the past 12 months has [employer], gas, oil, or water [employer] threatened to shut off services in your [...] How often do you attend chur or tenriism services? Never 09/22/2021 Do you belong to [...] heating? Not hard at all 11/22/2022 [facility] of Occupat ional Health - Occupational Stress [...] your living situation today? I have a [facility] place to live 12/10/2023 Education Answer [...] Comments Blood Pressure 149/74 02/19/2024 4:30 PM NITRIC ACID PLANT OPERATOR Pulse 59 02/19/2024 4:30 PM NITRIC ACID PLANT OPERATOR Temperature - - Respiratory Rate 15 02/19/2024 4:30 PM NITRIC ACID PLANT OPERATOR Oxygen Saturation 98% 02/19/2024 4:30 PM NITRIC ACID PLANT OPERATOR Inhaled Oxygen Concentration - - Weight 78.1 kg (172 lb 2.9 oz) 02/19/2024 4:30 P M NITRIC ACID PLANT OPERATOR Height - - Body Mass Index 27.02 [...] Oncology History Overview Note DIAGNOSIS: Stage IV ([id number]) distal rectal adenocarcinoma, mets to liver (baseline CEA 32.6) PRIMARY [place] ONCOLOGIST: Dr. José PRIMARY LOCAL ONCOLOGIST: Dr. Mc ([place]) MOLECULAR PROFILE: pMMR Tempus xT (11/19/22): KRAS [...] sitting on. Her PCP recommended fiber. Her information support project manager did a pelvis exam which was normal, [...] Comparison with prior rectal tumor biopsy ([id number]) was performed, and the present neoplasm displays [...] not have her recent infusion records from [place], so am not entirely certain how to [...] Rectum appears to maintain radiographic cCR. No LC-FACTORER would be planned if she does not [...] Comprehensive Metabolic Panel Oncology office visit (clinic) IC ACID PLANT OPERATOR documented in this encounter Plan of Treatment Upcoming Encounters Date Type Department Care Team (Latest Contact Info) Description 05/20/2024 10:30 AM NITRIC ACID PLANT OPERATOR Clinical Communication Virtual Review in [place], [place] 200 [place] [address] 05/21/2024 7:00 AM NITRIC ACID PLANT OPERATOR Appointment Department of Radiology, [facility], in [place], [place] [address] [place] [address] [place] [phone] Elisabeth Turner M.D. [address] [place] [phone] 05/21/2024 7:40 AM NITRIC ACID PLANT OPERATOR Lab Department of Infusion Therapy in [place], [place] [address] [place] [phone] Elisabeth Turner M.D. [address] [place] [phone] 05/21/2024 11:10 AM NITRIC ACID PLANT OPERATOR Office Visit Department of Oncology in [place], [place] [address] [place] [address] Johnathan José M.D. [address] [place] [phone] Scheduled Orders Name Type Priority Associated Diagnoses [...] Multiple documented in this encounter Care Teams Department Head Relationship Specialty Start Date End Date Elsewhere, Pcp PCP - General Internal Medicine 09/26/21 documented as of this encounter
--- OUTSIDE RECORDS SUMMARY | 2024-04-03 07:24 | XMS_ITS | Encounter Summary ---
Author Organization [facility] Address [address] [place] [address] Care Team Providers Care Electric Switch Tester Name Role Phone Elsewhere, Pcp Primary Care Provider Unavailabl e Reason for Referral * MRI/CAT/PET Scan (Routine) - Closed Specialty Diagnoses / Procedures Referred By Tammy stone Referred To Contact Radiology Diagnoses Malignant Neoplasm Of Rectum (HCC) Secondary Malignant Neoplasm Liver (HCC) Procedures CT Chest with IV Contrast CT Chest without IV Contrast Elisabeth Turner M.D. 200 [place] [address] Phone: tel: fax: [facility] Referral ID Status Reason Start Date Expiration Date Visits Re quested Visits Authorized [id number] Closed 12/16/2023 12/15/2024 1 1 RESEARCHER * MRI/CAT/PET Scan (Routine) - Closed Specialty Diagnoses / Procedures Referred By Tammy stone Referred To Contact Radiology Diagnoses Malignant Neoplasm Of Rectum (HCC) Secondary Malignant Neoplasm Liver (HCC) Procedures CT Abdomen Pelvis with IV Contrast Elisabeth Turner M.D. 200 [place] [address] Phone: tel: fax: [facility] Referral ID Status Reason Start Date Expiration Date Visits Re quested Visits Authorized [id number] Closed 12/16/2023 12/15/2024 1 1 RESEARCHER Reason for Visit * MRI/CAT/PET Scan (Routine) - Closed Specialty Diagnoses / Procedures Referred By Tammy stone Referred To Contact Radiology Diagnoses Malignant Neoplasm Of Rectum (HCC) Secondary Malignant Neoplasm Liver (HCC) Procedures CT Abdomen Pelvis with IV Contrast Elisabeth Turner M.D. [address] [place] [address] Phone: tel: fax: [facility] Referral ID Status Reason Start Date Expiration Date Visits Re quested Visits Authorized [id number] Closed 12/16/2023 12/15/2024 1 1 Encounter Details Date Type Department Care Team (Latest Contact Info) Description 02/19/2024 6:31 AM LAW RESEARCHER - 02/19/2024 11:59 PM LAW RESEARCHER Hospital Encounter Department of Radiology, [facility], in [place], [place] [address] [place] [address] Elisabeth Turner M.D. [address] [place] [address] Malignant Neoplasm Of Rectum (HCC); Secondary Malignant Neoplasm Liver (HCC) Discharge Disposition: Home or Self Care 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 Tobacco Use Types Packs/Day Years Used Date Smoking Tobacco: Never Passive Smoke Exposure: Never Smokeless Tobacco: Never Alcohol Use Standard Drinks/Week Comments Yes 2 (1 standard drink = 0.6 oz pur e alcohol) [facility] Utilities Answer Date Recorded In the past 12 months has e [employer], oil, or water [employer] threatened to shut off services in your [...] any clubs o r organizations such as anabaptist groups, unions, fraternal or athletic groups, or [...] (Latest Contact Info) Description 05/20/2024 10:30 AM LAW RESEARCHER Clinical Communication Virtual Review in [place], [place] 200 [place] [address] 05/21/2024 7:00 AM LAW RESEARCHER Appointment Department of Radiology, [facility], in [place], [place] [address] [place] [phone] Elisabeth Turner M.D. [address] [place] [phone] 05/21/2024 7:40 AM LAW RESEARCHER Lab Department of Infusion Therapy in [place], [place] [address] [place] [phone] Elisabeth Turner M.D. [address] [place] [address] 05/21/2024 11:10 AM LAW RESEARCHER Office Visit Department of Oncology in [place], [place] [address] [place] [address] Johnathan José M.D. [address] [place] [phone] documented as of this encounter Procedures Procedure Name Priority Date/Time Associated Diagnosis Comments CT ABDOMEN PELVIS WITH IV CONTRAST RAD - Routine (most inpatients and all outpatients) 02/19/2024 7:52 AM LAW RESEARCHER Malignant Neoplasm Of Rectum (HCC) Secondary Malignant Neoplasm Liver (HCC) CT CHEST WITH IV CONTRAST RAD - Routine (most inpatients and all outpatients) 02/19/2024 7:52 AM LAW RESEARCHER Malignant Neoplasm Of Rectum (HCC) Secondary Malignant Neoplasm Liver (HCC) documented in this encounter Results * CT Chest with IV Contrast (02/19/2024 7:52 AM LAW RESEARCHER) Anatomical Region Laterality Modality Chest, Thoracic RST LOS, Tho racic ARZ LOS, Thoracic ARZ LOS, Thoracic FLA LOS N/A Computed Tomography, Compute d Tomography 02/19/2024 7:45 AM LAW RESEARCHER Impressions 02/19/2024 9:57 AM LAW RESEARCHER 1. New and enlarging subcentimeter pulmonary nodules are concerning for metastatic disease. Largest nodule is approximately 6 mm in the right upper lobe. 2. Other stable pulmonary micronodules are likely benign. Narrative 02/19/2024 9:57 AM LAW RESEARCHER EXAM: CT CHEST WITH IV CONTRAST COMPARISON: [...] subsolid nodule in the left lower lobe ([id number], image 269) is new. These findings are [...] Pelvis with IV Contrast (02/19/2024 7:52 AM LAW RESEARCHER) Anatomical Region Laterality Modality Abdomen, Pelvis, Abdominal R ST LOS, Abdominal ARZ LOS, Abdominal FLA LOS N/A Computed Tomograp hy, Computed Tomography 02/19/2024 7:45 AM LAW RESEARCHER Impressions 02/19/2024 2:06 PM LAW RESEARCHER 1. 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 2. Apparent filling defect within the right gonadal vein which may be artifactual from phase of contrast versus gonadal vein thrombus. Narrative 02/19/2024 2:06 PM LAW RESEARCHER EXAM: CT ABDOMEN PELVIS WITH IV CONTRAST [...] III metastases measures 1.3 x 1 cm ([id number], image 33), previously 0.5 x 0.5 cm. [...] versus gonadal vein thrombus. Elisabeth Turner M.D. [facility] PROCEDURES Final Result documented in this [...] prior to discharge. Given 02/19/2024 7:51 AM LAW RESEARCHER 500 Units iohexoL 300 mg iodine/mL solution 1-200 mL (Omnipaque) 1-200 mL, intravenous, Once in imaging, contrast, Starting on Sat02/19/24 at 0639, For 1 dose, Imaging Protocol Orders, Dose per Radiant Medication Guidelines Given 02/19/2024 7:31 AM LAW RESEARCHER 140 mL sodium chloride (PF) 0.9 % injection 1-100 mL 1-100 mL, intravenous, Once, On Sat02/19/24 at 0700, For 1 dose, Imaging Protocol Orders, Dose per Radiant Medication Guidelines Given 02/19/2024 7:32 AM LAW RESEARCHER 50 mL sodium chloride 0.9 % injection 10-20 mL 10-20 mL, intravenous, During hospitalization, line care, Prior to discharge, Starting on Sat02/19/24 at 0653, For 1 dose, Implanted Vascular Access Device (IVAD) Venous Non-Valved: Flush 10 mL per port/lumen followed by heparin flush prior to discharge. Given 02/19/2024 7:51 AM LAW RESEARCHER 10 mL sodium chloride 0.9 % injection 10-20 mL 10-20 mL, intravenous, As needed, line care, Starting on Sat02/19/24 at 0653, Implanted Vascular Access Device (IVAD) Venous Non-Valved: When no infusion to maintain patency, flush 10 mL per port/lumen followed by heparin flush. Given 02/19/2024 6:56 AM LAW RESEARCHER 10 mL documented in this encounter Care Teams Electric Switch Tester Relationship Specialty Start Date End Date Elsewhere, Pcp PCP - General Internal Medicine 09/26/21 documented as of this encounter
--- OUTSIDE RECORDS SUMMARY | 2024-04-03 07:25 | XMS_ITS | Continuity of Care Document ---
Author Name Nw[facility]IN User [email or web address] llowed Address Unknown Organization Unknown Address Unknown Procedures FILTER APPLIED:Only known Procedures with Onset Date within the last 5 years Procedure Date Procedure Provider Additiona l Information Status URINALYSIS AUTO W/O SCOPE (89780) Completed OFFICE O/P EST HI 40 MIN (11797) Completed OFF/OP EST MAY X REQ PHY/QHP (48446) Completed CHEMO PROLONG INFUSE W/PUMP (26019) Completed THER/PROPH/DIAG IV INF ADDON (49140) Completed TX/PRO/DX INJ SAME DRUG SHROUDMAN (15378) Completed CHEMO IV INFUSION 1 HR (27537) Completed DRAW BLOOD OFF VENOUS DEVICE (70370) Completed COMPREHEN METABOLIC PANEL (23634) Completed ASSAY OF URINE CREATININE (77475) Completed ASSAY OF PROTEIN URINE (66082) Completed EXTREMITY STUDY (09623) Completed OFFICE O/P EST MOD 30 MIN (56335) Completed OFFICE O/P EST SF 10 MIN (57096) Completed COMPLETE CBC W/AUTO DIFF WBC (49713) Completed ASSAY OF CREATININE (72091) Completed C DIFF AMPLIFIED PROBE (91436) Completed EMERGENCY DEPT VISIT MOD MDM (18135) Completed THER/PROPH/DIAG INJ SC/IM (00551) Completed US URINE CAPACITY MEASURE (01175) Completed URINALYSIS AUTO W/SCOPE (94385) Completed ASSAY OF SERUM POTASSIUM (32655) Completed ASSAY OF MAGNESIUM (50254) Completed THER/PROPH/DIAG IV INF INIT (19686) Completed THER/PROPH/DIAG IV INF ADDON (11906) Completed CHEMO IV INFUS EACH ADDL SEQ (37711) Completed URINE CULTURE/COLONY COUNT (29859) Completed OFFICE O/P EST HI 40 MIN (89049) Completed OFFICE O/P EST SF 10 MIN (74479) Completed ASSAY OF PROTEIN URINE (40818) Completed ASSAY OF URINE CREATININE (37687) Completed MICROSCOPIC EXAM OF URINE (61074) Completed URINALYSIS AUTO W/O SCOPE (88415) Completed DRAW BLOOD OFF VENOUS DEVICE (87752) Completed OFFICE O/P NEW SF 15 MIN (83160) Completed OFFICE O/P NEW HI 60 MIN (24758) Completed CHEMO IV INFUSION 1 HR (09321) Completed TX/PRO/DX INJ SAME DRUG SHROUDMAN (83168) Completed THER/DIAG CONCURRENT INF (90402) Completed OFF/OP EST JULY X REQ PHY/QHP (38367) Completed COMPLETE CBC W/AUTO DIFF WBC (50657) Completed CHEMO PROLONG INFUSE W/PUMP (10032) Completed COMPREHEN METABOLIC PANEL (26944) Completed ROUTINE VENIPUNCTURE (57904) Completed CHEMO IV PUSH ADDL DRUG (88528) Completed CHEMO IV INFUSION ADDL HR (28136) Completed BILIRUBIN DIRECT (53278) Completed Encounters FILTER APPLIED:Only known Encounters with Admission Date within the last 5 years Encounter Location Admission Discharge Billing Code Curb Setter [facility] Outpatient Abrahan Nieto Outpatient Abrahan Nieto Outpatient Outpatient Outpatient Dinesh Mc Outpatient Thi Mckee Outpatient Francy chase
[2024-04-03 11:12] VITALS: BP 110/65; PULSE 56; RESP 16; TEMP 36.2; O2SAT 97
[2024-04-03] MEDS: PEGFILGRASTIM-JMDB (Fulphila) 6 MG/0.6 ML SUBCUT (11:28)
[2024-04-13 14:09] LABS: Basophils Percent Auto 0.3 % (0.0-3.0); Eosinophils Percent Auto 4.1 % (0.0-7.0); Hematocrit 40.8 % (33.0-51.0); Hemoglobin* 13.2 gm/dL (12.0-16.0); Immature Granulocytes Pct Auto 6.4 %; Lymphocytes Percent Auto 10.2 % (20-44); Mean Corpuscular HGB Conc 32 gm/dL (32-36); Mean Corpuscular Hemoglobin 33 pg (26-34); Mean Corpuscular Volume 103 fL (80-100); Monocytes Percent Auto 4.5 % (0.0-11.0); Neutrophils Percent Auto 74.5 % (42.0-72.0); Platelet Count* 88 K/uL (140-440); RDW Coefficient of Variation % 14.8 % (11.5-15.5); Red Blood Count 3.95 m/uL (4.00-5.20); White Blood Count* 21.85 K/uL (4.50-11.00)
[2024-04-13 14:10] LABS: Slide Review Reflex No
[2024-04-13 14:21] LABS: Chloride* 104 mmol/L (96-114)
[2024-04-13 14:22] LABS: Potassium* 3.8 mmol/L (3.6-5.1); Sodium* 140 mmol/L (135-149)
[2024-04-13 14:25] LABS: Alanine Aminotransferase* 22 U/L (4-35); Alkaline Phosphatase* 136 U/L (40-150); Anion Gap 9 mEq/L (7-15); Aspartate Amino Transferase* 26 U/L (12-35); Bilirubin Total* 0.4 mg/dL (0.1-1.5); Blood Urea Nitrogen* 8 mg/dL (7-30); Calcium* 9.2 mg/dL (8.4-10.6); Carbon Dioxide* 27 mmol/L (20-32); Creatinine* 0.8 mg/dL (0.5-1.5); Est. Creatinine Clearance* 45.82; Estimated Glomerular Filt Rate 76 ml/min; Glucose* 113 mg/dL (60-115); Total Protein* 6.4 g/dL (6.0-8.3)
[2024-04-13 14:31] LABS: Total Protein Urine 6 mg/dL
[2024-04-13 14:32] LABS: Creatinine Urine 194.2 mg/dL; Protein Creatinine Ratio Urine 0.03 (0-0.19)
[2024-04-21 10:27] LABS: Basophils Percent Auto 0.6 % (0.0-3.0); Eosinophils Percent Auto 2.7 % (0.0-7.0); Hematocrit 41.5 % (33.0-51.0); Hemoglobin* 13.2 gm/dL (12.0-16.0); Immature Granulocytes Pct Auto 1.4 %; Lymphocytes Percent Auto 14.9 % (20-44); Mean Corpuscular HGB Conc 32 gm/dL (32-36); Mean Corpuscular Hemoglobin 33 pg (26-34); Mean Corpuscular Volume 104 fL (80-100); Monocytes Percent Auto 9.9 % (0.0-11.0); Neutrophils Percent Auto 70.5 % (42.0-72.0); Platelet Count* 120 K/uL (140-440); RDW Coefficient of Variation % 15.3 % (11.5-15.5); Red Blood Count 3.98 m/uL (4.00-5.20); White Blood Count* 12.37 K/uL (4.50-11.00)
[2024-04-21 10:35] LABS: Slide Review Reflex No
[2024-04-21 10:37] VITALS: BP 146/73; PULSE 61; RESP 16; TEMP 36.1; O2SAT 97
[2024-04-21 10:46] LABS: Chloride* 103 mmol/L (96-114); Sodium* 137 mmol/L (135-149)
[2024-04-21 10:49] LABS: Alanine Aminotransferase* 20 U/L (4-35); Alkaline Phosphatase* 108 U/L (40-150); Anion Gap 7 mEq/L (7-15); Aspartate Amino Transferase* 22 U/L (12-35); Bilirubin Total* 0.5 mg/dL (0.1-1.5); Blood Urea Nitrogen* 11 mg/dL (7-30); Carbon Dioxide* 27 mmol/L (20-32); Creatinine* 0.7 mg/dL (0.5-1.5); Est. Creatinine Clearance* 45.82; Estimated Glomerular Filt Rate 89 ml/min; Total Protein* 6.2 g/dL (6.0-8.3)
[2024-04-21 10:50] LABS: Calcium* 9.3 mg/dL (8.4-10.6); Glucose* 112 mg/dL (60-115)
[2024-04-21] MEDS: dexAMETHasone 10 MG/ML inj IVP (11:26)
[2024-04-21] MEDS: PALONOSETRON 0.25 MG/5 ML inj IV (11:26)
[2024-04-21] MEDS: 0.9 % SODIUM CHLORIDE 500 ML IV (11:26)
[2024-04-21] MEDS: TUBING SECONDARY IVPB (11:38)
[2024-04-21] MEDS: [UNRECOGNIZED DRUG - OTHER] IVPB (11:38)
[2024-04-21] MEDS: BEVACIZUMAB ADCD IVPB (11:38)
[2024-04-21] MEDS: ATROPINE 0.4 mg/ml IV (12:32)
[2024-04-21] MEDS: LEUCOVORIN CALCIUM 100 MG, TUBING SECONDARY 1 EACH in 5 % DEXTROSE 250 ML 250 ML 170 MG IV (12:36)
[2024-04-21] MEDS: FLUOROURACIL IV (14:21)
[2024-04-21] MEDS: CADD MED CASSETTE RESERVOIR IV (14:21)
[2024-04-21] MEDS: SODIUM CHLORIDE 0.9 % (FLUSH) 10 ML SYRINGE IVF (14:27)
[2024-04-23 11:34] VITALS: BP 137/77; PULSE 57; RESP 16; TEMP 35.8; O2SAT 97
[2024-04-23] MEDS: HEPARIN 500 UNIT/5 ML SYRINGE IVF (11:37)
[2024-04-23] MEDS: SODIUM CHLORIDE 0.9 % (FLUSH) 10 ML SYRINGE IVF (11:37)
[2024-05-04] MEDS: SODIUM CHLORIDE 0.9 % (FLUSH) 10 ML SYRINGE IVF (13:00)
[2024-05-04] MEDS: HEPARIN 500 UNIT/5 ML SYRINGE IVF (13:05)
[2024-05-04 13:32] LABS: Basophils Absolute Auto 0.05 K/uL (0.00-0.30); Eosinophils Percent Auto 9.9 % (0.0-7.0); Hematocrit 38.8 % (33.0-51.0); Hemoglobin* 12.4 gm/dL (12.0-16.0); Immature Granulocytes Abs Auto 0.01 K/uL (0.00-0.30); Immature Granulocytes Pct Auto 0.2 %; Lymphocytes Absolute Auto 1.17 K/uL (0.90-2.90); Lymphocytes Percent Auto 23.2 % (20-44); Mean Corpuscular HGB Conc 32 gm/dL (32-36); Mean Corpuscular Hemoglobin 33 pg (26-34); Mean Corpuscular Volume 104 fL (80-100); Monocytes Percent Auto 11.5 % (0.0-11.0); Neutrophils Absolute Auto 2.73 K/uL (1.7-7.0); Neutrophils Percent Auto 54.2 % (42.0-72.0); Platelet Count* 214 K/uL (140-440); RDW Coefficient of Variation % 14.7 % (11.5-15.5); Red Blood Count 3.73 m/uL (4.00-5.20); White Blood Count* 5.04 K/uL (4.50-11.00)
[2024-05-04 13:47] LABS: Albumin* 3.9 g/dL (3.3-5.0); Chloride* 106 mmol/L (96-114)
[2024-05-04 13:48] LABS: Potassium* 4.1 mmol/L (3.6-5.1); Sodium* 138 mmol/L (135-149)
[2024-05-04 13:50] LABS: Alkaline Phosphatase* 82 U/L (40-150); Anion Gap 6 mEq/L (7-15); Aspartate Amino Transferase* 19 U/L (12-35); Bilirubin Total* 0.6 mg/dL (0.1-1.5); Blood Urea Nitrogen* 14 mg/dL (7-30); Carbon Dioxide* 26 mmol/L (20-32); Creatinine* 0.7 mg/dL (0.5-1.5); Estimated Glomerular Filt Rate 89 ml/min; Total Protein* 6.2 g/dL (6.0-8.3)
[2024-05-04 13:51] LABS: Total Protein Urine < 5 mg/dL
[2024-05-04 13:51] LABS: Alanine Aminotransferase* 18 U/L (4-35); Calcium* 8.8 mg/dL (8.4-10.6); Glucose* 103 mg/dL (60-115)
[2024-05-04 13:54] LABS: Creatinine Urine 185.2 mg/dL; Protein Creatinine Ratio Urine 0.03 (0-0.19)
[2024-05-04 14:02] LABS: Slide Review Reflex No
[2024-05-05 09:55] VITALS: BP 147/74; PULSE 56; RESP 17; TEMP 35.6; O2SAT 99
[2024-05-05] MEDS: SODIUM CHLORIDE 0.9 % (FLUSH) 10 ML SYRINGE IVF ×2 (10:33→13:01)
[2024-05-05] MEDS: 0.9 % SODIUM CHLORIDE 500 ML IV (10:34)
[2024-05-05] MEDS: PALONOSETRON 0.25 MG/5 ML inj IV (10:35)
[2024-05-05] MEDS: dexAMETHasone 10 MG/ML inj IVP (10:36)
[2024-05-05] MEDS: [UNRECOGNIZED DRUG - OTHER] IVPB (10:40)
[2024-05-05] MEDS: BEVACIZUMAB ADCD IVPB (10:40)
[2024-05-05] MEDS: TUBING SECONDARY IVPB (10:40)
[2024-05-05] MEDS: ATROPINE 0.4 mg/ml IV (11:16)
[2024-05-05] MEDS: LEUCOVORIN CALCIUM 100 MG, TUBING SECONDARY 1 EACH in 5 % DEXTROSE 250 ML 250 ML 170 MG IV (11:19)
[2024-05-05] MEDS: FLUOROURACIL IV (13:00)
[2024-05-05] MEDS: CADD MED CASSETTE RESERVOIR IV (13:00)
[2024-05-07 10:18] VITALS: BP 151/75; PULSE 52; RESP 14; TEMP 35.7; O2SAT 97
[2024-05-07] MEDS: SODIUM CHLORIDE 0.9 % (FLUSH) 10 ML SYRINGE IVF (10:34)
[2024-05-07] MEDS: HEPARIN 500 UNIT/5 ML SYRINGE IVF (10:34)
--- NOTE | 2024-05-07 10:42 | ONC.NURNOTE ---
Pt present at [facility] for pump removal and shared that next 05/12/2024, she is having a mold mitigation fog treatment in her home for some mold that developed after an exterior pipe broke in their wall. Christie and Ankur state that the service man doing the treatment is very experienced and is using a treatment called Goldmorr. They were reassured by the expert that it is safe to re-enter the home after the suggested time period. They want to make sure the team is aware and that there are no reservations to this process. RN spoke with DON Gonzalez and it was determined that pt should follow the instructions of the professional and consider using HEPA air filtration for a few days in the area(s) they spend most time. Will share this info with Christie and Stewart when they return tomorrow.
[2024-05-08 13:11] VITALS: BP 134/75; PULSE 55; RESP 16; TEMP 36.3; O2SAT 97
[2024-05-08] MEDS: PEGFILGRASTIM-JMDB (Fulphila) 6 MG/0.6 ML SUBCUT (13:23)
[2024-05-18 10:11] VITALS: BP 144/76; PULSE 55; RESP 16; TEMP 36.2; O2SAT 98
[2024-05-18 10:40] LABS: Basophils Percent Auto 0.2 % (0.0-3.0); Eosinophils Percent Auto 2.2 % (0.0-7.0); Hematocrit 39.8 % (33.0-51.0); Hemoglobin* 12.7 gm/dL (12.0-16.0); Lymphocytes Percent Auto 9.5 % (20-44); Mean Corpuscular HGB Conc 32 gm/dL (32-36); Mean Corpuscular Hemoglobin 33 pg (26-34); Mean Corpuscular Volume 103 fL (80-100); Monocytes Percent Auto 4.5 % (0.0-11.0); Neutrophils Percent Auto 80.6 % (42.0-72.0); Platelet Count* 103 K/uL (140-440); RDW Coefficient of Variation % 15.1 % (11.5-15.5); Red Blood Count 3.87 m/uL (4.00-5.20); White Blood Count* 20.34 K/uL (4.50-11.00)
[2024-05-18 10:46] LABS: Slide Review Reflex No
[2024-05-18 10:52] LABS: Albumin* 4.1 g/dL (3.3-5.0); Chloride* 104 mmol/L (96-114)
[2024-05-18 10:53] LABS: Potassium* 3.7 mmol/L (3.6-5.1); Sodium* 138 mmol/L (135-149)
[2024-05-18 10:55] LABS: Alanine Aminotransferase* 22 U/L (4-35); Alkaline Phosphatase* 140 U/L (40-150); Anion Gap 9 mEq/L (7-15); Aspartate Amino Transferase* 23 U/L (12-35); Bilirubin Total* 0.3 mg/dL (0.1-1.5); Blood Urea Nitrogen* 13 mg/dL (7-30); Carbon Dioxide* 25 mmol/L (20-32); Creatinine* 0.7 mg/dL (0.5-1.5); Estimated Glomerular Filt Rate 89 ml/min; Glucose* 117 mg/dL (60-115); Total Protein* 6.2 g/dL (6.0-8.3)
[2024-05-18] MEDS: 0.9 % SODIUM CHLORIDE 500 ML IV (12:15)
[2024-05-18] MEDS: PALONOSETRON 0.25 MG/5 ML inj IV (12:16)
[2024-05-18] MEDS: dexAMETHasone 10 MG/ML inj IVP (12:18)
[2024-05-18] MEDS: TUBING SECONDARY IVPB (12:39)
[2024-05-18] MEDS: BEVACIZUMAB ADCD IVPB (12:39)
[2024-05-18] MEDS: [UNRECOGNIZED DRUG - OTHER] IVPB (12:39)
[2024-05-18] MEDS: ATROPINE 0.4 mg/ml IV (13:15)
[2024-05-18] MEDS: LEUCOVORIN CALCIUM 100 MG, TUBING SECONDARY 1 EACH in 5 % DEXTROSE 250 ML 250 ML 170 MG IV (13:17)
[2024-05-18] MEDS: SODIUM CHLORIDE 0.9 % (FLUSH) 10 ML SYRINGE IVF (14:58)
[2024-05-18] MEDS: CADD MED CASSETTE RESERVOIR IV (15:01)
[2024-05-18] MEDS: FLUOROURACIL IV (15:01)
--- NOTE | 2024-05-18 15:12 | ONC.NURNOTE ---
Patient in clinic today for C5D1 Vegzelma/FOLFIRI. Patient's WBC 20.24 and ANC 16.4. On assessment patient denies any S/S of infection or being ill. RN spoke with Mercy Stephen PA-C who gave ok for Fulphilia injection to be held with this cycle. Patient updated and injection held on treatment plan.
[2024-05-20 12:13] VITALS: BP 138/72; PULSE 55; RESP 16; TEMP 35.8; O2SAT 98
[2024-05-20] MEDS: SODIUM CHLORIDE 0.9 % (FLUSH) 10 ML SYRINGE IVF (12:23)
[2024-05-20] MEDS: HEPARIN 500 UNIT/5 ML SYRINGE IVF (12:23)
[2024-05-27 14:33] VITALS: BP 129/77; PULSE 73; RESP 16; TEMP 36.1; O2SAT 100
[2024-05-27] MEDS: SODIUM CHLORIDE 0.9 % (FLUSH) 10 ML SYRINGE IVF ×2 (15:25→16:20)
[2024-05-27] MEDS: 0.9 % SODIUM CHLORIDE 500 ML IV (15:40)
[2024-05-27 15:50] LABS: Basophils Absolute Auto 0.06 K/uL (0.00-0.30); Basophils Percent Auto 0.7 % (0.0-3.0); Eosinophils Absolute Auto 0.27 K/uL (0.00-0.50); Eosinophils Percent Auto 3.2 % (0.0-7.0); Hematocrit 37.2 % (33.0-51.0); Hemoglobin* 12.2 gm/dL (12.0-16.0); Immature Granulocytes Abs Auto 0.02 K/uL (0.00-0.30); Immature Granulocytes Pct Auto 0.2 %; Lymphocytes Percent Auto 14.8 % (20-44); Mean Corpuscular HGB Conc 33 gm/dL (32-36); Mean Corpuscular Hemoglobin 33 pg (26-34); Mean Corpuscular Volume 99 fL (80-100); Monocytes Percent Auto 4.1 % (0.0-11.0); Platelet Count* 125 K/uL (140-440); RDW Coefficient of Variation % 14.7 % (11.5-15.5); Red Blood Count 3.75 m/uL (4.00-5.20); White Blood Count* 8.44 K/uL (4.50-11.00)
[2024-05-27 16:10] LABS: Chloride* 100 mmol/L (96-114); Potassium* 3.8 mmol/L (3.6-5.1); Sodium* 134 mmol/L (135-149)
[2024-05-27 16:11] LABS: Slide Review Reflex No
[2024-05-27 16:13] LABS: Anion Gap 10 mEq/L (7-15); Blood Urea Nitrogen* 14 mg/dL (7-30); Carbon Dioxide* 24 mmol/L (20-32); Creatinine* 0.9 mg/dL (0.5-1.5); Estimated Glomerular Filt Rate 66 ml/min; Glucose* 111 mg/dL (60-115)
[2024-05-27] MEDS: HEPARIN 500 UNIT/5 ML SYRINGE IVF (16:20)
[2024-05-28 09:01] LABS: C.Difficile Negative (Negative); CDIFFEPI 027 PRESUMPTIVE NEGATIVE (Negative)
[2024-05-30 01:24] LABS: Adenovirus PCR Not Detected; Astrovirus PCR Not Detected; Campylobacter PCR Not Detected; Cryptosporidium PCR Not Detected; Cyclospora cayetanensis PCR Not Detected; Entamoeba histolytica PCR Not Detected; Enteroaggregative E coli PCR Not Detected; Enteropathogenic E coli PCR Not Detected; Enterotoxigenic E coli PCR Not Detected; Giardia lamblia PCR Not Detected; Norovirus Gi/GII PCR Not Detected; Plesiomonas shig PCR Not Detected; Rotavirus A PCR Not Detected; Salmonella PCR Not Detected; Sapovirus PCR Not Detected; Shiga toxin E coli PCR Not Detected; Shigella/Enteroinvasive E coli Not Detected; Vibrio PCR Not Detected; Vibrio cholerae PCR Not Detected; Yersinia enterocolitica PCR Not Detected
--- NOTE | 2024-06-01 09:26 | ONC.NURNOTE ---
Pt called updating regarding diarrhea over the weekend. She had 5 watery stools Saturday and 2 on Saturday with 1 soft, formed stool Saturday evening 11p. She is taking 2 immodium after loose stools, up to a max of 6 immodium/day. She is eating her regular foods, including white rice and white noodles; reinforced BRAT diet. Pt verbalizes understanding. Pt also notes she has appts at [place] tomorrow for labs/scans/md and is worried about having diarrhea complicating travel. Reviewed with Thi Hamilton APRN. Plan for pt to take 2 immodium this morning and tomorrow morning in hopes of preventing diarrhea; then pt can continue immodium after each loose stool. Pt verbalizes understanding.
[2024-06-03 11:36] LABS: Total Protein Urine 6 mg/dL
[2024-06-03 11:37] LABS: Creatinine Urine 129.1 mg/dL; Protein Creatinine Ratio Urine 0.05 (0-0.19)
[2024-06-03] MEDS: SODIUM CHLORIDE 0.9 % (FLUSH) 10 ML SYRINGE IVF (11:45)
[2024-06-03] MEDS: TUBING SECONDARY IVPB (12:09)
[2024-06-03] MEDS: BEVACIZUMAB ADCD IVPB (12:09)
[2024-06-03] MEDS: [UNRECOGNIZED DRUG - OTHER] IVPB (12:09)
[2024-06-03] MEDS: dexAMETHasone 10 MG/ML inj IVP (12:45)
[2024-06-03] MEDS: PALONOSETRON 0.25 MG/5 ML inj IV (12:45)
[2024-06-03] MEDS: ATROPINE 0.4 mg/ml IV (12:59)
[2024-06-03] MEDS: LEUCOVORIN CALCIUM 100 MG, TUBING SECONDARY 1 EACH in 5 % DEXTROSE 250 ML 250 ML 170 MG IV (13:02)
[2024-06-03] MEDS: TUBING PRIMARY IV (13:03)
[2024-06-03] MEDS: IRINOTECAN IV (13:03)
[2024-06-03] MEDS: DEXTROSE 5% IV (13:03)
[2024-06-03] MEDS: 0.9 % SODIUM CHLORIDE 500 ML IV (13:06)
[2024-06-03] MEDS: CADD MED CASSETTE RESERVOIR IV (14:44)
[2024-06-03] MEDS: FLUOROURACIL IV (14:44)
[2024-06-05 12:25] VITALS: BP 137/75; PULSE 60; RESP 16; TEMP 36.2; O2SAT 100
[2024-06-05] MEDS: PEGFILGRASTIM-JMDB (Fulphila) 6 MG/0.6 ML SUBCUT (12:32)
[2024-06-05] MEDS: HEPARIN 500 UNIT/5 ML SYRINGE IVF (12:33)
[2024-06-05] MEDS: SODIUM CHLORIDE 0.9 % (FLUSH) 10 ML SYRINGE IVF (12:33)
[2024-06-16 10:03] VITALS: BP 130/62; PULSE 61; RESP 18; TEMP 35.3; O2SAT 99
[2024-06-16 10:30] LABS: Basophils Percent Auto 0.4 % (0.0-3.0); Hematocrit 41.8 % (33.0-51.0); Hemoglobin* 13.3 gm/dL (12.0-16.0); Immature Granulocytes Pct Auto 1.8 %; Lymphocytes Percent Auto 9.7 % (20-44); Mean Corpuscular HGB Conc 32 gm/dL (32-36); Mean Corpuscular Hemoglobin 33 pg (26-34); Mean Corpuscular Volume 103 fL (80-100); Monocytes Percent Auto 5.2 % (0.0-11.0); Neutrophils Percent Auto 80.9 % (42.0-72.0); Platelet Count* 148 K/uL (140-440); RDW Coefficient of Variation % 15.4 % (11.5-15.5); Red Blood Count 4.06 m/uL (4.00-5.20); White Blood Count* 17.39 K/uL (4.50-11.00)
[2024-06-16 10:32] LABS: Slide Review Reflex No
[2024-06-16 10:42] LABS: Chloride* 103 mmol/L (96-114); Sodium* 137 mmol/L (135-149)
[2024-06-16 10:43] LABS: Potassium* 3.8 mmol/L (3.6-5.1)
[2024-06-16 10:45] LABS: Alkaline Phosphatase* 145 U/L (40-150); Anion Gap 9 mEq/L (7-15); Aspartate Amino Transferase* 22 U/L (12-35); Bilirubin Total* 0.4 mg/dL (0.1-1.5); Blood Urea Nitrogen* 11 mg/dL (7-30); Carbon Dioxide* 25 mmol/L (20-32); Creatinine* 0.8 mg/dL (0.5-1.5); Estimated Glomerular Filt Rate 76 ml/min; Glucose* 109 mg/dL (60-115); Total Protein* 6.3 g/dL (6.0-8.3)
[2024-06-16 10:46] LABS: Alanine Aminotransferase* 22 U/L (4-35)
[2024-06-16 10:48] LABS: Total Protein Urine < 5 mg/dL
[2024-06-16 10:49] LABS: Creatinine Urine 210.4 mg/dL; Protein Creatinine Ratio Urine 0.02 (0-0.19)
[2024-06-16] MEDS: TUBING SECONDARY IVPB (11:24)
[2024-06-16] MEDS: [UNRECOGNIZED DRUG - OTHER] IVPB (11:24)
[2024-06-16] MEDS: BEVACIZUMAB ADCD IVPB (11:24)
[2024-06-16] MEDS: PALONOSETRON 0.25 MG/5 ML inj IV (12:29)
[2024-06-16] MEDS: dexAMETHasone 10 MG/ML inj IVP (12:32)
[2024-06-16] MEDS: ATROPINE 0.4 mg/ml IV (12:48)
[2024-06-16] MEDS: DEXTROSE 5% IV (12:54)
[2024-06-16] MEDS: TUBING PRIMARY IV (12:54)
[2024-06-16] MEDS: IRINOTECAN IV (12:54)
[2024-06-16] MEDS: LEUCOVORIN CALCIUM 100 MG, TUBING SECONDARY 1 EACH in 5 % DEXTROSE 250 ML 250 ML 170 MG IV (13:00)
[2024-06-16] MEDS: FLUOROURACIL IV (14:38)
[2024-06-16] MEDS: CADD MED CASSETTE RESERVOIR IV (14:38)
[2024-06-16] MEDS: SODIUM CHLORIDE 0.9 % (FLUSH) 10 ML SYRINGE IVF (14:48)
[2024-06-16] MEDS: 0.9 % SODIUM CHLORIDE 500 ML IV (15:13)
[2024-06-18] MEDS: SODIUM CHLORIDE 0.9 % (FLUSH) 10 ML SYRINGE IVF (13:46)
[2024-06-18] MEDS: HEPARIN 500 UNIT/5 ML SYRINGE IVF (13:46)
[2024-06-18 13:49] VITALS: BP 120/67; PULSE 56; RESP 16; TEMP 35.8; O2SAT 97
--- NOTE | 2024-06-18 14:02 | ONC.NURNOTE ---
Pt here for pump off. VSS. No pegfilgrastim needed on 06/19/24 due to high WBC. Pt states with the last 2 treatments, she has woken up with a sensation that she has something in her throat on day 3. This sensation last approx 24hours and symptoms then resolve. No other symptoms are associated with this. Pt has an appt with a provider prior to next chemo and will discuss symptom at that time with provider.
== END 2024-06-28 23:59 | disposition home or self-care (01) ==
LOC: CCIC 13:00
PROVIDERS: Clinical Nurse Specialist; Physician Assistant; PCP Family Medicine; Referring Provider Family Medicine; Visit Provider Internal Medicine Hematology & Oncology
DX: C20 Malignant neoplasm of rectum (principal)
CPT/HCPCS: 36415; 36591; 80048; 80053; 82570; 84156; 85025; 87493; 87505; 96365; 96366; 96367; 96368; 96372; 96375; 96376; 96413; 96415; 96416; 96417; 99211; 99214; 99215; G0463; J0461; J0640; J0780; J1100; J1642; J2469; J7030; J7050; J9190; J9206; Q5108; Q5129

== ENCOUNTER 2024-07-30 00:40 | Emergency (ER) | payer MEDICARE, SELFPAY ==
[2024-07-30 00:57] VITALS: BP 170/91; PULSE 68; RESP 18; TEMP 36.9; O2SAT 99
[2024-07-30] MEDS: HEPARIN 500 UNIT/5 ML SYRINGE IVF (00:59)
[2024-07-30 01:01] VITALS: BP 170/91; PULSE 68; RESP 18; TEMP 36.9; O2SAT 99
--- OUTSIDE RECORDS SUMMARY | 2024-07-30 01:02 | XMS_ITS | Clinical Summary ---
Author Organization [facility] Address [address] , [address] [place] [address] Phone Care Team Providers Care Wastewater Superintendent Name Role Phone System Maintenance Unavailable [phone] Conditions or Problems Problem Name Problem Code Onset Date Status Entry Date Provider Comment Standard Description Annotate Peripheral neuropathy [id number] (SNOMED CT) 06/27 Active 06/27 Agnieszka LOPEZ-C Peripheral nerve disease Paresthesias [id number] (SNOMED CT) 09/28 Active 09/28 Keanu Coronado MD Paresthesia Medications Medication Instructions Start Date Stop Date Generic Name NDC Provider DULOXETINE HCL 30 MG CPEP take 1 cap by mouth at bedtime 10/25 duloxetine [id number] Agnieszka Chavez PA-C DULOXETINE HCL 30 MG CPEP TAKE 1 CAPSULE BY MOUTH EVERYDAY AT BEDTIME *APPOINTMENT NEEDED* duloxetine [id number] Agnieszka LOPEZ-C MULTI-VITAMINS TABS multivitamin 06316422800 Agnieszka LOPEZ-C VITAMIN D3 10 MCG (400 UNIT) TABS cholecalciferol (vitamin d3) 09104497478 Agnieszka Chavez PA-C cyanocobalamin (vitamin B-12) unspecified unspecified cyanocobalamin (vitamin b-12) Agnieszka Chavez PA-C SM FIBER POWDER 25 % POWD psyllium husk (with sugar) 28724098625 Agnieszka Chavez PA-C SURI ASPIRIN EC LOW DOSE 81 MG TBEC 1 tab daily aspirin 96025034246 Agnieszka Dawnradha CORBIN DULOXETINE HCL 30 MG CPEP take 1 cap by mouth at bedtime 10/25 duloxetine 88121862402 Agnieszka Chavez EMERALD METOPROLOL TARTRATE 50 MG TABS Take 1 tablet by mouth twice a day metoprolol tartrate 18346257764 Keanu Coronado MD OMEPRAZOLE 20 MG CPDR Take 1 capsule by mouth once a day as needed omeprazole 58990004769 Keanu Coronado MD SIMVASTATIN 20 MG TABS Take 1 tablet by mouth every night simvastatin 06800195853 Keanu Coronado MD OMEPRAZOLE 20 MG CPDR TAKE 1 CAPSULE BY MOUTH EVERY DAY NEEDED 07/14 OMEPRAZOLE 63143025706 Keanu Coronado MD SIMVASTATIN 20 MG TABS TAKE 1 TABLET BY MOUTH AT BEDTIME 06/27 SIMVASTATIN 10734427173 Keanu Coronado MD METOPROLOL TARTRATE 50 MG TABS TAKE 1 TABLET BY MOUTH TWICE A DAY 07/14 METOPROLOL TARTRATE 42032200524 Keanu Coronado MD Medications Administered No information available. Allergies, Adverse Reactions, Alerts Allergy Name Reaction Description Start Date Severity Statu s Provider ADHESIVE TAPE Moderate Active Hema Coronado MD Results Date Name Value Unit Range Flag Description Office Visit: PERIPHERAL WILBERT ROPATHY 09/28/20 12:18- 09/28/20 12:18 REFERRI... 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 Internal Other: Authorizatio n - OBS [email or web address] Yes Authoriza tion: Release of Information - Authorize Jim/MDC - Payment and Healthcare Operations ROIAUTHOTHER Yes Authoriz ation: Release of Information - Authorize Others/Insurance - Payment and Healthcare Operations HIECONSENT Yes Consent To Release information to the Health Information Exchange (HIE) [email or web address] Yes Authorizat ion: Authorization for Jim/ALEXI to leave messages, voicemail, send text messages, send emails AUTHRELHCARE Yes Authoriz ation: Release/Retrieval of Information to/from Healthcare Facilities, Pharmacy Benefit Payers and Providers AUTHPRIVPRAC Yes Authoriz ation: Notice of privacy practices AUTHBENEFIT Yes Authoriza tion: Assignment of Benefits and Payment Agreement Telemedicine: [facility] Follow Up 06/27/21 mail MEDS REVIEW Done Documenta tion of current medications (procedure) Plan of Care Type Date Detail Pending order DAHLIA Pending order C Reactive Prote in (CRP) Qn Pending order ESR (Sedimentati on Rate) Pending order Folate (Folic Ac id) Serum Pending order Homocysteine Pending order Immunofixation S eyad w/Electrophoresis Pending order Methylmalonic Ac id Serum (MMA) Pending order Sjogren's Ab - S SA/SSB (ANTI-Ro/ANTI-La) Pending order T4 Pending order T4 Free Direct Pending order Vitamin B1 (Thia mine) Pending order Vitamin B6 (Pyri doxine) Pending order Vitamin B12 Pending order Follow up [facility] af ter testing telemedicine Pending order Follow up [facility] af ter testing telemedicine Pending order DAHLIA Pending order C Reactive Prote in (CRP) Qn Pending order ESR (Sedimentati on Rate) Pending order Folate (Folic Ac id) Serum Pending order Homocysteine Pending order Immunofixation S eyad w/Electrophoresis Pending order Methylmalonic Ac id Serum (MMA) Pending order Sjogren's Ab - S SA/SSB (ANTI-Ro/ANTI-La) Pending order T4 Pending order T4 Free Direct Pending order Vitamin B1 (Thia mine) Pending order Vitamin B6 (Pyri doxine) Pending order Vitamin B12 Pending order EMG bilateral lo w ext Pending order We will contact you with test results Procedures Code Procedure Name Date Entry Date CPT-48416 Nerve Conduction 5-6 studies CPT-88649 EMG with NCS (5+ muscles) - 1 limb 06/21 ORDERS EMG bilateral low ext 09/28 ORDERS We will contact you with test results 202 04/06/29 [facility]-[id number] Documentation of current medicatio ns Vital Signs Date Name Value Unit Description Height 66 [in_us] height E&M BMI (Body Mass Index) 31.91 kg/m2 Bod y Mass Index (Ratio) Weight Measured 89.55 kg weight in kilograms E&M Weight Measured 197 [lb_av] weight E& M Weight Measured 197 [lb_av] weight E& M Immunizations No information available. Advance Directives No information available.
--- OUTSIDE RECORDS SUMMARY | 2024-07-30 01:02 | XMS_ITS ---
Author Organization [facility] Address [address] [place] [address] Care Team Providers Care Harvest Worker Name Role Phone Elsewhere, Pcp Primary Care Provider Unavailabl e Active Problems * This document contains information received from the source organization and may not represent a complete record from that organization. 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 on 02/19/2024 Obesity Unspecified 12/06/2022 Mass Hepatic 12/06/2022 Polyneuropathy 06/27/2021 Paresthesia 09/28/2020 Current Treatment and Therapy Plans No current plan information found. Past Treatment and Therapy Plans Flushes/Hydration Plan Name Start Date Discontinue Date Treatment Medications Discontinue Reason Plan Provider Vascular Access Patency - Implanted Vascular Access Device (IVAD) Venous Non-Valved 07/24/2023 07/06/2024 No medications scheduled. Therapy Complete - Vascular Access Patency - Implanted Vascular Access Device (IVAD) Venous Non-Valved 02/19/2023 07/24/2023 No medications scheduled. Amendment Change - Hematology / Oncology Treatment 1 Plan Name Start Date Discontinue Date Treatment Medications Discontinue Reason Plan Provider Cycles FOLFIRI + Bevacizumab ( Fluorouracil / Leucovorin / Irinotecan / Bevacizumab ) 3 06/02/2024 bevacizumab-bv zr (Zirabev)fluor ouraciL (AdruciL)irino tecan (Camptosar) Unlisted Johnathan José M.D. Treatment not started Lifetime Dose Tracking * Chemical Lifetime Dose Automatic Entry Manual Entr y Radiation 5 mGy 5 mGy 0 mGy Fluoro Time 1 minutes 1 minutes 0 minutes DAP (uGy-m2) 131.48 uGy-m2 131.48 uGy-m2 0 uGy-m2
--- OUTSIDE RECORDS SUMMARY | 2024-07-30 01:02 | XMS_ITS | Clinical Summary ---
Author Organization [facility] Address [address] [place] [address] Care Team Providers Care Bee Keeper Name Role Phone Elsewhere, Pcp Primary Care Provider Unavailabl e Source Comments Patient records contain information from all sites at [facility]. For routine questions regarding patient records, call [phone] during business hours, M-F 8:00 AM - 5:00 PM Central Time. Record requests for emergency care only can be directed to [phone] at any time.[facility] Allergies Active Allergy Reactions Criticality Noted [...] tablet 3 3 Active Additional Information Patient not taking.Reported on 05/20/[address] tablet Take 81 [...] 1 HOUR BEFORE DENTAL APPTS 4 Active prochlorperazin e (Compazine) 10 mg tablet Take 10 mg by mouth every 6 (six) hours as needed for nausea or vomiting. Active ondansetron (Zofran) 8 mg tablet Take 8 mg by mouth every 8 (eight) hours as needed for nausea or vomiting. 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 on 02/19/2024 Obesity Unspecified 12/06/2022 Mass Hepatic 12/06/2022 Polyneuropathy 06/27/2021 Paresthesia 09/28/2020 Encounters Date Type Department Care Team Description 06/02/2024 2:40 PM ADVERTISING SALES MANAGER Office Visit Department of Oncology in [address] [phone] Jessie Angelo APRN, C.NSarathP., M.S.N. Malignant Neoplasm Of Rectum (HCC) (Primary Dx); Secondary Malignant Neoplasm Liver (HCC) 06/02/2024 9:40 AM ADVERTISING SALES MANAGER Lab Department of Infusion Therapy in [address] [phone] Elisabeth Turner M.D. Malignant Neoplasm Of Rectum (HCC) (Primary Dx); Secondary Malignant Neoplasm Liver (HCC); Nodules Pulmonary Multiple 06/02/2024 7:56 AM ADVERTISING SALES MANAGER - 06/02/2024 11:59 PM ADVERTISING SALES MANAGER Hospital [facility] [address] [phone] Elisabeth Turner M.D. Malignant Neoplasm Of Rectum (HCC); Secondary Malignant Neoplasm Liver (HCC); Nodules Pulmonary Multiple Discharge Disposition: Home or Self Care 05/20/2024 10:30 AM ADVERTISING SALES MANAGER Clinical Communication Virtual Review in [address] [phone] Blood Pressure from Last 3 Months Family History Medical History Relation Name Comments Hypertension Father W L Prostate cancer Father W L Relation Name Status Comments Father W L 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 Tobacco Use Types Packs/Day Years Used Date Smoking Tobacco: Never Passive Smoke Exposure: Never Smokeless Tobacco: Never Tobacco Cessation:Counseling Given: Not Answered Alcohol Use Standard Drinks/Week Comments Yes 1 (1 standard drink = 0.6 oz pur e alcohol) [facility] Utilities Answer Date Recorded In the past 12 months has e [employer], gas, oil, or water [employer] threatened to shut off services in your [...] and heating? Not hard at all 11/22/2022 [facility] [place] of Occupat ional Health - Occupational Stress [...] a [facility] place to live 12/10/2023 Education Answer [...] Sign Reading Time Taken Comments Blood Pressure 149/72 06/02/2024 2:38 PM ADVERTISING SALES MANAGER Pulse 61 06/02/2024 2:38 PM ADVERTISING SALES MANAGER Temperature 37 C (98.6 F) 06/02/2024 2:38 PM ADVERTISING SALES MANAGER Respiratory Rate 17 06/02/2024 2:38 PM ADVERTISING SALES MANAGER Oxygen Saturation 99% 06/02/2024 2:38 PM ADVERTISING SALES MANAGER Inhaled Oxygen Concentration - - Weight 76.5 kg (168 lb 10.4 oz) 06/02/2024 2:38 PM ADVERTISING SALES MANAGER Height 173 cm (5' 8.11) 06/02/2024 2:38 PM ADVERTISING SALES MANAGER Body Mass Index 25.56 06/02/2024 2:38 PM ADVERTISING SALES MANAGER Plan of Treatment Upcoming Encounters Date Type Department Care Team (Latest Contact Info) Description 08/31/2024 8:45 AM CDT Clinical Communication Virtual Review in [place], [place] [address] [place] [address] 09/02/2024 11:00 AM CDT Lab Department of Infusion Therapy in [place], [place] [address] [place] [phone] Jessie Angelo, DON, C.N.P., M.S.N. [address] [place] [phone] 09/02/2024 1:45 PM CDT Appointment [facility] [address] [phone] Jessie Angelo APRN, C.N.P., M.S.N. [address] [place] [phone] 09/03/2024 11:00 AM CDT Office Visit Department of Oncology in [address] [phone] Elisabeth Turner M.D. [address] [place] [phone] Health Maintenance Due Date Last Done Comments Hepatitis C Screening 1945 Hepatitis A Vaccines (1 of 2 - Risk 2-dose series) 1966 Zoster Vaccines (1 of 2) 1966 Hepatitis B Vaccines (1 of 3 - Risk 3-dose series) 2007 RSV vaccine - (32-36 weeks) or 60+ years (1 - 1-dose 75+ series) 2022 Depression Screening (Annual PHQ-2) 04/01/2024 Fall Risk Screen (Annual) 04/01/2024 COVID-19 Vaccine (9 - Pfizer risk 2023- season) 2024 02/21/2024, 01/01/2023, 08/07/2022, Additional history exists Office Visit for Blood Pressure Check / Re-check 09/02/2024 06/02/2024 Creatinine Level (Kidney Function Test) 06/02/2025 06/02/2024, 02/19/2024, 12/16/2023, Additional history exists Potassium Level 06/02/2025 06/02/2024, 01/31, 12/16/2023, Additional history exists Sodium Level 06/02/2025 06/02/2024, 01/31, 12/16/2023, Additional history exists DTaP,Tdap,and Td Vaccines (2 [...] this topic Medical Devices Implanted Type Area Assistant Professor Of Archaeology Device Identifier Shelf Expiration Date Model / Serial / Lot Hardware E.G. Pins/Screws/R ods Hardware e.g. pins/screws/clayton s Right: Wrist Description:Titanium plate Prt Cath Infus Mri Intrwy 8f - [id number] Implanted:Qty : 1 on 12/17/2022 by Alfie Merino M.D. at [facility] Implantable [employer] 05/29/2024 [id number] / / [id number] Procedures Procedure Name Priority Date/Time Associated Diagnosis Comments COMPREHENSIVE METABOLIC PANEL, S/P Routine 06/02/2024 9:59 AM ADVERTISING SALES MANAGER Malignant Neoplasm Of Rectum (HCC) Secondary Malignant Neoplasm Liver (HCC) Nodules Pulmonary Multiple CARCINOEMBRYONIC AG (CEA), S Routine 06/02/2024 9:59 AM ADVERTISING SALES MANAGER Malignant Neoplasm Of Rectum (HCC) Secondary Malignant Neoplasm Liver (HCC) Nodules Pulmonary Multiple CBC CHEMO - NO ALERTS Routine 06/02/2024 9:59 AM ADVERTISING SALES MANAGER Malignant Neoplasm Of Rectum (HCC) Secondary Malignant Neoplasm Liver (HCC) Nodules Pulmonary Multiple BILIRUBIN DIRECT, S/P Routine 06/02/2024 9:59 AM ADVERTISING SALES MANAGER Malignant Neoplasm Of Rectum (HCC) Secondary Malignant Neoplasm Liver (HCC) Nodules Pulmonary Multiple CT CHEST WITH IV CONTRAST RAD - Routine (most inpatients and all outpatients) 06/02/2024 9:35 AM ADVERTISING SALES MANAGER Malignant Neoplasm Of Rectum (HCC) Secondary Malignant Neoplasm Liver (HCC) Nodules Pulmonary Multiple CT ABDOMEN PELVIS WITH IV CONTRAST RAD - Routine (most inpatients and all outpatients) 06/02/2024 9:35 AM ADVERTISING SALES MANAGER Malignant Neoplasm Of Rectum (HCC) Secondary Malignant Neoplasm Liver (HCC) Nodules Pulmonary Multiple from Last 3 Months Results * CBC, Chemotherapy, No Alerts (06/02/2024 9:59 AM ADVERTISING SALES MANAGER) Hemoglobin 11.7 11.6 - 15.0 g/dL 06/02/2024 10:46 AM ADVERTISING SALES MANAGER DTL Platelet Count 234 157 - 371 x10(9)/L 06/02/2024 10:46 AM ADVERTISING SALES MANAGER DTL Leukocytes 5.2 3.4 - 9.6 x10(9)/L 06/02/2024 10:46 AM ADVERTISING SALES MANAGER DTL Neutrophils 2.12 1.56 - 6.45 x10(9)/L 06/02/2024 10:46 AM ADVERTISING SALES MANAGER PM Blood (Blood, Venous) 06/02/2024 9:59 AM ADVERTISING SALES MANAGER 06/02/2024 10:24 AM ADVERTISING SALES MANAGER Elisabeth Turner M.D. LAB BLOOD ADD-ON Final R esult [facility] [place] [address] [place] [address], [place] DTL [facility] [address] [place] [address] [facility] [address] [place] [address] * (ABNORMAL) CEA (Carcinoembryonic Antigen) (06/02/2024 9:59 AM ADVERTISING SALES MANAGER) Carcinoembryonic Ag (CEA), S 19.2(H) ng/mL 06/02/2024 1:51 PM ADVERTISING SALES MANAGER [facility] Comment: ----REFERENCE VALUE---- <=3.0 (Non-smokers) Some smokers may have elevated CEA, usually <5.0. ----ADDITIONAL INFORMATION---- The testing method is an immunoenzymatic assay manufactured by [employer] and performed on the [employer] DxI 800. Values obtained with different assay methods or kits may be different and cannot be used interchangeably. Test results cannot be interpreted as absolute evidence for the presence or absence of malignant disease. Blood (Blood, Venous) 06/02/2024 9:59 AM ADVERTISING SALES MANAGER 06/02/2024 12:57 PM ADVERTISING SALES MANAGER Elisabeth Turner M.D. LAB BLOOD ADD-ON Final R esult Performing Organization Address City/[facility]/ZIP Co de Phone Number [facility] [address] [place] [address] [facility] [address] [place] [address] * Bilirubin, Direct (06/02/2024 9:59 AM ADVERTISING SALES MANAGER) Bilirubin, Direct, S <0.2 0.0 - 0.3 mg/dL 06/02/2024 11:39 AM ADVERTISING SALES MANAGER DT Blood (Blood, Venous) 06/02/2024 9:59 AM ADVERTISING SALES MANAGER 06/02/2024 10:51 AM ADVERTISING SALES MANAGER Elisabeth Turner M.D. LAB BLOOD ADD-ON Final R esult [facility] [place] [address] [place] [address], [place] [facility] [address] [place] [address] * (ABNORMAL) Comprehensive Metabolic Panel (06/02/2024 9:59 AM ADVERTISING SALES MANAGER) Pathologist [facility] Potassium, S 3.7 3.6 - 5.2 mmol/L 06/02/2024 11:39 AM ADVERTISING SALES MANAGER DTL Sodium, S 137 135 - 145 mmol/L 06/02/2024 11:39 AM ADVERTISING SALES MANAGER DTL Chloride, S 103 98 - 107 mmol/L 06/02/2024 11:39 AM ADVERTISING SALES MANAGER DTL Bicarbonate, S 23 22 - 29 mmol/L 06/02/2024 11:39 AM ADVERTISING SALES MANAGER DTL Anion Gap 11 7 - 15 06/02/2024 11:39 AM ADVERTISING SALES MANAGER DTL BUN (Blood Urea Nitrogen), S 8 6 - 21 mg/dL 06/02/2024 11:39 AM ADVERTISING SALES MANAGER DTL Creatinine 0.84 0.59 - 1.04 mg/dL 06/02/2024 11:39 AM ADVERTISING SALES MANAGER DTL Estimated GFR (eGFR) 72 >=60 mL/min/BS A 06/02/2024 11:39 AM ADVERTISING SALES MANAGER DTL Comment: Estimated GFR calculated using the 2020 CKD_EPI creatinine equation. Calcium, Total, S 9.0 8.8 - 10.2 mg/dL 06/02/2024 11:39 AM ADVERTISING SALES MANAGER DTL Glucose, S 79 70 - 140 mg/dL 06/02/2024 11:39 AM ADVERTISING SALES MANAGER DTL Protein, Total, S 5.5(L) 6.3 - 7.9 g/dL 06/02/2024 11:39 AM ADVERTISING SALES MANAGER DTL Albumin, S 3.8 3.5 - 5.0 g/dL 06/02/2024 11:39 AM ADVERTISING SALES MANAGER DTL Aspartate Aminotransferase (AST), S 22 8 - 43 U/L 06/02/2024 11:39 AM ADVERTISING SALES MANAGER DTL Alkaline Phosphatase, S 93 35 - 104 U/L 06/02/2024 11:39 AM ADVERTISING SALES MANAGER DTL Alanine Aminotransferase (ALT), S 20 7 - 45 U/L 06/02/2024 11:39 AM ADVERTISING SALES MANAGER DTL Bilirubin, Total, S 0.3 0.0 - 1.2 mg/dL 06/02/2024 11:39 AM ADVERTISING SALES MANAGER DTL Blood (Blood, Venous) 06/02/2024 9:59 AM ADVERTISING SALES MANAGER 06/02/2024 10:51 AM ADVERTISING SALES MANAGER us Elisabeth Turner M.D. LAB BLOOD ADD-ON Final R esult [facility] [address] [place] [address], [place] DTL [facility] [address] [place] [address] * CT Abdomen Pelvis with IV Contrast (06/02/2024 9:35 AM ADVERTISING SALES MANAGER) Anatomical Region Laterality Modality Abdomen, Pelvis, Abdominal R ST LOS, Abdominal ARZ LOS, Abdominal FLA LOS N/A Computed Tomography 06/02/2024 9:24 AM ADVERTISING SALES MANAGER Impressions 06/02/2024 3:40 PM ADVERTISING SALES MANAGER Slight interval decrease in size of majority of hepatic metastases. No new site of metastases. Narrative 06/02/2024 3:40 PM ADVERTISING SALES MANAGER EXAM: CT ABDOMEN PELVIS WITH IV CONTRAST COMPARISON: Compared to CT 02/19/2020 FINDINGS: Interval decrease in size of majority of hepatic metastases . For example, the lesion in segment V (series 3/image 36) measures 2.1 x 1.1 cm, previously measured 2.4 x 1.2 cm. Another lesion adjacent to right hepatic vein near IVC confluence in the hepatic dome (series 3/image 15) measures 2.0 x 0.9 cm (series 3/image 15), previously measured 2.1 x 1.2 cm . Several additional smaller hepatic lesions are relatively stable/unchanged. Cholecystectomy with mild prominence of the common bile duct. Spleen, right adrenal and left kidney are within normal limits. Mild pancreatic parenchymal atrophy. Stable nodularity of the left adrenal gland. Right renal cyst. Atheromatous vascular calcifications. No measurable peritoneal nodule or ascites. Colonic diverticulosis. Small fat-containing umbilical hernia. Degenerative changes in the spine, bilateral SI and hip joints. Demineralization. This examination was performed in conjunction with a CT of the chest, which will be reported separately. Procedure Note Po Olmedo M.B.B.S., M.D. - 06/02/2024 EXAM: CT ABDOMEN PELVIS WITH IV CONTRAST COMPARISON: Compared to CT 02/19/2020 FINDINGS: Interval decrease in size of majority of hepatic metastases .For example, the lesion in segment V (series 3/image 36) measures 2.1 x1.1 cm, previously measured 2.4 x 1.2 cm. Another lesion adjacent to righthepatic vein near IVC confluence in the hepatic dome (series 3/image 15) measures 2.0 x 0.9 cm (series3/image 15), previously measured 2.1 x 1.2 cm . Several additional smallerhepatic lesions are relatively stable/unchanged. Cholecystectomy with mild prominence of the common bile duct. Spleen,right adrenal and left kidney are within normal limits. Mild pancreaticparenchymal atrophy. Stable nodularity of the left adrenal gland. Rightrenal cyst. Atheromatous vascular calcifications. No measurable peritoneal nodule or ascites. Colonicdiverticulosis. Small fat-containing umbilical hernia. Degenerativechanges in the spine, bilateral SI and hip joints. Demineralization. This examination was performed in conjunction with a CT of the chest,which will be reported separately. IMPRESSION: Slight interval decrease in size of majority of hepatic metastases. No newsite of metastases. Elisabeth Turner M.D. Shae CT PROCEDURES Final Result * CT Chest with IV Contrast (06/02/2024 9:35 AM ADVERTISING SALES MANAGER) Anatomical Region Laterality Modality Chest, Thoracic RST LOS, Tho racic ARZ LOS, Thoracic ARZ LOS, Thoracic FLA LOS N/A Computed Tomography 06/02/2024 9:28 AM ADVERTISING SALES MANAGER Impressions 06/02/2024 11:32 AM ADVERTISING SALES MANAGER 1. Stable examination, with stable small lung nodules since 02/19/2024. 2. This examination was performed in conjunction with a CT of the abdomen, which will be reported separately. Narrative 06/02/2024 11:32 AM ADVERTISING SALES MANAGER EXAM: CT CHEST WITH IV CONTRAST COMPARISON: CT chest 02/19/2024. FINDINGS: Mild bilateral bronchial wall thickening, with a few scattered foci of endobronchial mucous plugging. Small lung nodules are without measurable change since 02/19/2024, largest is a 6 mm nodule in the anterior right upper lobe ( Series 3, Image 191). Others include a 4 mm nodule left lung apex ( Series 3, Image 80). Previously new left lower lobe sub solid nodule, not seen today, but region partially obscured by mild atelectasis and respiratory motion artifact. No new or enlarging lung nodule. Right chest Port-A-Cath, tip termination superior cavoatrial junction. Coronary artery calcification. Trace pericardial fluid and/or thickening. No significant pleural effusion. Skeletal degenerative changes, without worrisome osseous abnormality. 3D maximum intensity projection (MIP) images were created on a dependent workstation as ordered by the treating provider and reviewed by the radiologist to increase sensitivity for detection of pulmonary nodules. Procedure Note Beto Hoffmann M.B., B.Ch. - 06/02/2024 EXAM: CT CHEST WITH IV CONTRAST COMPARISON: CT chest 02/19/2024. FINDINGS: Mild bilateral bronchial wall thickening, with a few scattered foci ofendobronchial mucous plugging. Small lung nodules are without measurable change since 02/19/2024, largestis a 6 mm nodule in the anterior right upper lobe ( Series 3, Image 191).Others include a 4 mm nodule left lung apex ( Series 3, Image 80).Previously new left lower lobe sub solid nodule, not seen today, but region partially obscured by mildatelectasis and respiratory motion artifact. No new or enlarging lungnodule. Right chest Port-A-Cath, tip termination superior cavoatrial junction. Coronary artery calcification. Trace pericardial fluid and/orthickening. No significant pleural effusion. Skeletal degenerative changes, without worrisome osseous abnormality. 3D maximum intensity projection (MIP) images were created on a dependentworkstation as ordered by the treating provider and reviewed by theradiologist to increase sensitivity for detection of pulmonary nodules. IMPRESSION: 1. Stable examination, with stable small lung nodules since 02/19/2024. 2. This examination was performed in conjunction with a CT of the abdomen,which will be reported separately. Elisabeth Turner M.D. [facility] CT PROCEDURES Final Result from Last 3 Months Insurance [facility] MEDICARE Care Teams Bee Keeper Relationship Specialty Start Date End Date Elsewhere, Pcp PCP - General Internal Medicine 09/26/21
--- NOTE | 2024-07-30 01:04 | ED_ITS ---
HPI - General Adult General Date Seen: 07/30/24 Chief complaint: Unspecified Complaint, Adult Stated complaint: chemo pump issues Time Seen by Provider: 07/30/24 00:41 History of Present Illness HPI narrative: Patient seen by nursing secondary to problems with leaking from her central line catheter through which she gets continuous chemotherapy. She has an appointment tomorrow with Oncology. No other complaints Related Data Home Medications ?Medication ?Instructions ?Recorded ?Confirmed aspirin 81 mg tablet,delayed 81 mg PO DAILY 01/01/22 07/27/24 release cholecalciferol (vitamin D3) 25 25 mcg PO QDAY 01/01/22 07/27/24 mcg (1,000 unit) capsule cyanocobalamin (vitamin B-12) 1,000 mcg PO DAILY 01/01/22 07/27/24 1,000 mcg tablet,extended release diphenhydramine 25 0.5 tab PO HS 01/01/22 07/27/24 mg-acetaminophen 500 mg tablet multivitamin 1 tab PO QDAY 01/01/22 07/27/24 polyethylene glycol 3350 17 4 g PO DAILY PRN 12/27/22 07/27/24 gram/dose oral powder (Miralax) ondansetron HCl 8 mg tablet 8 mg PO Q8H PRN 01/09/23 07/27/24 acetaminophen 500 mg tablet 500 mg PO Q6H PRN 12/06/23 07/27/24 (Tylenol Extra Strength) Previous Rx's ?Medication ?Instructions ?Recorded lidocaine HCl 2 % mucosal solution 1 applic mucous membrane QID PRN 03/26/23 (Lidocaine Viscous) mouth pain #100 mL hydrochlorothiazide 12.5 mg tablet 12.5 mg PO QAM #90 tabs 09/02/23 metoprolol tartrate 50 mg tablet 50 mg PO BID #180 tabs 09/02/23 omeprazole 20 mg capsule,delayed 20 mg PO DAILY PRN reflux #90 caps 09/02/23 release simvastatin 20 mg tablet 20 mg PO HS #90 tabs 09/02/23 sertraline 50 mg tablet 50 mg PO QDAY #90 tabs 01/06/24 loperamide 2 mg capsule 2 - 4 mg (1 - 2 x 2 mg) PO Q4H PRN 05/22/24 loose stool #45 caps prochlorperazine maleate 10 mg 10 mg PO Q6H PRN nausea/vomiting 02/21/25 tablet #30 tabs potassium chloride 20 mEq 20 meq PO .COMPLEX low potassium 07/27/24 tablet,extended release #240 tabs Allergies Allergy/AdvReac Type Severity Reaction Status Date / Time adhesive Allergy Severe Blister Verified 07/30/24 00:59 PFSH [facility] Medical History Diarrhea ?R19.7 - Diarrhea, unspecified (ICD-10) Neutropenia ?D70.9 - Neutropenia, unspecified (ICD-10) History of colonic polyps ?Z86.010 - Personal history of colonic polyps (ICD-10) Closed fracture of distal radius and ulna (02/03/19) ?S52.509A - Unspecified fracture of the lower end of unspecified radius, initial encounter for closed fracture (ICD-10) ?S52.609A - Unspecified fracture of lower end of unspecified ulna, initial encounter for closed fracture (ICD-10) Surgical History History of surgery on right wrist (01/2019) ?Z98.890 - Other specified postprocedural states (ICD-10) Status post de Quervain's release surgery (09/2016) ?Z98.890 - Other specified postprocedural states (ICD-10) History of left knee surgery (12/2012) ?Z98.890 - Other specified postprocedural states (ICD-10) History of cholecystectomy (07/2015) ?Z90.49 - Acquired absence of other specified parts of digestive tract (ICD- 10) Family History Father Heart disease High blood pressure High cholesterol 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 (Updated 08/30/23 @ 08:26 by Maria Fernanda Lin ~ CTA) 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 What is your current living situation?: I presently have a place to live Problems where you live: declined to answer In the past 12 months, utilities in danger of being shut off: no In past 12 months, lack of transportation kept you from medical appts, meetings, work, or getting things needed for daily living: no In the past 12 mos, have been you worried that your food would run out before you had money to buy more?: never true In the past 12 mos, the food you bought just didn't last and you didn't have money to buy more?: never true Smoking Status: Never smoker Second hand tobacco smoke exposure: No How often do you have a drink containing alcohol: monthly or less AUDIT-C Alcohol total score: 1 Non-prescribed substance use: denies use Are you now , , , , never or living with a partner: Social isolation score (0-1 are the most socially isolated patients): 1 How often does anyone, including family, friends and others, physically hurt you : never How often does anyone, including family, friends and others, insult or talk down to you: never How often does anyone, including family, friends and others, threaten you with harm: never How often does anyone, including family, friends and others, scream or curse at you: never Do you think of yourself as: straight/heterosexual Gender Identity: female Are you currently sexually active: No service: No Exam Const: Vital Signs, click to edit/add: Vital Signs - 24 hr 07/30/24 00:57 07/30/24 01:01 Temperature 98.4 F 98.4 F Pulse Rate [Right Pulse Oximeter] 68 68 Respiratory Rate 18 18 Blood Pressure [Ri ght Upper Arm] 170/91 H 170/91 H Pulse Oximetry 99 99 Oxygen Delivery Me thod Room Air Room Air Course Course ED Course: I did not provide any specific care to this patient, nursing capped her port, she will need to have this definitively cared for tomorrow. Vital Signs Vital signs: Initial Vital Signs Temperature 98.4 F 07/30/24 00:57 Temperature Source Temporal Artery Scan 07/30/24 00:57 Pulse Rate 68 07/30/24 00:57 Respiratory Rate 18 07/30/24 00:57 Blood Pressure 170/91 H 07/30/24 00:57 Blood Pressure Mean 117 H 07/30/24 00:57 Blood Pressure Position Standing 07/30/24 00:57 Pulse Oximetry 99 07/30/24 00:57 Oxygen Delivery Method Room Air 07/30/24 00:57 Vital Signs Temperature 98.4 F 07/30/24 00:57 Pulse Rate 68 07/30/24 00:57 Respiratory Rate 18 07/30/24 00:57 Blood Pressure 170/91 H 07/30/24 00:57 Pulse Oximetry 99 07/30/24 00:57 Oxygen Delivery Method Room Air 07/30/24 00:57 Temperature 98.4 F 07/30/24 01:01 Pulse Rate 68 07/30/24 01:01 Respiratory Rate 18 07/30/24 01:01 Blood Pressure 170/91 H 07/30/24 01:01 Pulse Oximetry 99 07/30/24 01:01 Oxygen Delivery Method Room Air 07/30/24 01:01 Medications Administered Medications: Generic Name Dose Route Start Last Admin Trade Name Freq PRN Reason Stop Dose Admin Heparin Sodium (Porcine) 500 unit 07/30/24 00:49 07/30/24 00:59 Heparin 500 Unit/5 Ml Syringe IVF 07/30/24 00:50 500 unit ONCE ONE Administration Discharge Plan Discharge Clinical Impression: Leaking central line catheter Patient Disposition: Home, Self-Care Additional Instructions: follow-up tomorrow as planned. Prescriptions: No Action aspirin 81 mg tablet,delayed release (DR/EC) 81 mg PO DAILY cholecalciferol (vitamin D3) 25 mcg (1,000 unit) capsule 25 mcg PO QDAY diphenhydramine-acetaminophen 25-500 mg tablet 0.5 tab PO HS multivitamin Tablet 1 tab PO QDAY cyanocobalamin (vitamin B-12) 1,000 mcg tablet extended release 1,000 mcg PO DAILY potassium chloride 20 mEq tablet extended release 20 meq PO .COMPLEX Qty: 240 1RF Rx Instructions: Take 2 - 20 meq tablets 3 days per week, and Take 3 - 20 meq tablets 4 days per week. polyethylene glycol 3350 [Miralax] 17 gram/dose powder 4 g PO DAILY PRN hydrochlorothiazide 12.5 mg tablet 12.5 mg PO QAM Qty: 90 3RF metoprolol tartrate 50 mg tablet 50 mg PO BID Qty: 180 3RF omeprazole 20 mg capsule,delayed release(DR/EC) 20 mg PO DAILY PRN (Reason: reflux) Qty: 90 3RF simvastatin 20 mg tablet 20 mg PO HS Qty: 90 3RF acetaminophen [Tylenol Extra Strength] 500 mg tablet 500 mg PO Q6H PRN ondansetron HCl 8 mg tablet 8 mg PO Q8H PRN lidocaine HCl [Lidocaine Viscous] 2 % solution 1 applic mucous membrane QID PRN (Reason: mouth pain) Qty: 100 1RF Patient Comments: has this but hasn't used it yet Rx Instructions: Swish in mouth for 30-60 seconds, then spit. Apply 15-30 minutes before eating prn. sertraline 50 mg tablet 50 mg PO QDAY Qty: 90 2RF loperamide 2 mg capsule 2 - 4 mg PO Q4H MDD 8 capsules PRN (Reason: loose stool) Qty: 45 1RF prochlorperazine maleate 10 mg tablet 10 mg PO Q6H PRN (Reason: nausea/vomiting) Qty: 30 1RF Follow Up/Referrals: Abrahan Nieto MD [Primary Care Provider] - Stand Alone [facility] Info Instructions
== END 2024-07-30 01:07 | disposition home or self-care (01) ==
PROVIDERS: Emergency Provider Emergency Medicine; PCP Family Medicine
DX: Z45.1 Encounter for adjustment and management of infusion pump (principal)
CPT/HCPCS: 99281; J1642

== ENCOUNTER 2024-12-14 09:45 | Outpatient (RCR) | payer MEDICARE, SELFPAY ==
[2024-06-29 12:28] LABS: Hematocrit 37.7 % (33.0-51.0); Hemoglobin* 11.8 gm/dL (12.0-16.0); Immature Granulocytes Abs Auto 0.01 K/uL (0.00-0.30); Immature Granulocytes Pct Auto 0.2 %; Mean Corpuscular HGB Conc 31 gm/dL (32-36); Mean Corpuscular Hemoglobin 32 pg (26-34); Mean Corpuscular Volume 102 fL (80-100); RDW Coefficient of Variation % 15.5 % (11.5-15.5); Red Blood Count 3.68 m/uL (4.00-5.20); White Blood Count* 5.70 K/uL (4.50-11.00)
[2024-06-29 12:34] LABS: Lymphocytes Absolute Auto 1.10 K/uL (0.90-2.90); Slide Review Reflex No
[2024-06-29 12:38] LABS: Albumin* 3.9 g/dL (3.3-5.0); Chloride* 106 mmol/L (96-114); Sodium* 139 mmol/L (135-149)
[2024-06-29 12:39] LABS: Potassium* 4.0 mmol/L (3.6-5.1); Protein Creatinine Ratio Urine 0.05 (0-0.19)
[2024-06-29 12:41] LABS: Alanine Aminotransferase* 22 U/L (4-35); Alkaline Phosphatase* 89 U/L (40-150); Anion Gap 7 mEq/L (7-15); Aspartate Amino Transferase* 28 U/L (12-35); Bilirubin Total* 0.5 mg/dL (0.1-1.5); Blood Urea Nitrogen* 11 mg/dL (7-30); Carbon Dioxide* 26 mmol/L (20-32); Creatinine* 0.7 mg/dL (0.5-1.5); Estimated Glomerular Filt Rate 89 ml/min; Total Protein* 6.2 g/dL (6.0-8.3)
[2024-06-29 12:42] LABS: Calcium* 9.1 mg/dL (8.4-10.6); Glucose* 104 mg/dL (60-115)
[2024-06-30 10:37] VITALS: BP 128/74; PULSE 60; RESP 17; TEMP 36.2; O2SAT 98
[2024-06-30] MEDS: TUBING SECONDARY IVPB (11:26)
[2024-06-30] MEDS: [UNRECOGNIZED DRUG - OTHER] IVPB (11:26)
[2024-06-30] MEDS: BEVACIZUMAB ADCD IVPB (11:26)
[2024-06-30] MEDS: ATROPINE 0.4 mg/ml IV (12:03)
[2024-06-30] MEDS: LEUCOVORIN CALCIUM 100 MG, TUBING SECONDARY 1 EACH in 5 % DEXTROSE 250 ML 250 ML 170 MG IV (12:03)
[2024-06-30] MEDS: DEXAMETHASONE 10 MG/ML PF IVP (12:03)
[2024-06-30] MEDS: TUBING PRIMARY IV (12:09)
[2024-06-30] MEDS: IRINOTECAN IV (12:09)
[2024-06-30] MEDS: DEXTROSE 5% IV (12:09)
[2024-06-30] MEDS: CADD MED CASSETTE RESERVOIR IV (14:30)
[2024-06-30] MEDS: FLUOROURACIL IV (14:30)
[2024-07-02 11:49] VITALS: BP 139/69; PULSE 55; RESP 18; TEMP 35.7; O2SAT 98
[2024-07-02] MEDS: SODIUM CHLORIDE 0.9 % (FLUSH) 10 ML SYRINGE IVF (12:41)
[2024-07-02] MEDS: HEPARIN 500 UNIT/5 ML SYRINGE IVF (12:45)
[2024-07-03] MEDS: PEGFILGRASTIM-JMDB (Fulphila) 6 MG/0.6 ML SUBCUT (14:46)
[2024-07-03 15:16] VITALS: BP 125/79; PULSE 65; RESP 16; TEMP 36.4; O2SAT 97
[2024-07-14 10:34] VITALS: BP 155/80; PULSE 63; RESP 18; TEMP 36.5; O2SAT 98
[2024-07-14] MEDS: SODIUM CHLORIDE 0.9 % (FLUSH) 10 ML SYRINGE IVF ×2 (10:55→14:58)
[2024-07-14 11:10] LABS: Hematocrit 40.9 % (33.0-51.0); Hemoglobin* 13.0 gm/dL (12.0-16.0); Immature Granulocytes Pct Auto 1.9 %; Mean Corpuscular HGB Conc 32 gm/dL (32-36); Mean Corpuscular Hemoglobin 32 pg (26-34); Mean Corpuscular Volume 102 fL (80-100); RDW Coefficient of Variation % 15.9 % (11.5-15.5); Red Blood Count 4.03 m/uL (4.00-5.20); White Blood Count* 18.46 K/uL (4.50-11.00)
[2024-07-14 11:13] LABS: Immature Granulocytes Abs Auto 0.40 K/uL (0.00-0.30); Lymphocytes Absolute Auto 1.70 K/uL (0.90-2.90); Slide Review Reflex No
[2024-07-14 11:30] LABS: Albumin* 4.1 g/dL (3.3-5.0); Chloride* 103 mmol/L (96-114)
[2024-07-14 11:31] LABS: Protein Creatinine Ratio Urine 0.02 (0-0.19)
[2024-07-14 11:31] LABS: Potassium* 3.9 mmol/L (3.6-5.1); Sodium* 137 mmol/L (135-149)
[2024-07-14 11:33] LABS: Alanine Aminotransferase* 26 U/L (4-35); Anion Gap 9 mEq/L (7-15); Aspartate Amino Transferase* 32 U/L (12-35); Blood Urea Nitrogen* 12 mg/dL (7-30); Carbon Dioxide* 25 mmol/L (20-32); Creatinine* 0.8 mg/dL (0.5-1.5); Est. Creatinine Clearance* 45.82; Estimated Glomerular Filt Rate 76 ml/min
[2024-07-14 11:34] LABS: Alkaline Phosphatase* 158 U/L (40-150); Bilirubin Total* 0.4 mg/dL (0.1-1.5); Calcium* 9.3 mg/dL (8.4-10.6); Glucose* 106 mg/dL (60-115); Total Protein* 6.5 g/dL (6.0-8.3)
[2024-07-14 11:43] VITALS: BP 129/73; PULSE 60
[2024-07-14] MEDS: DEXAMETHASONE 10 MG/ML PF IVP (12:11)
[2024-07-14] MEDS: BEVACIZUMAB ADCD IVPB (12:30)
[2024-07-14] MEDS: TUBING SECONDARY IVPB (12:30)
[2024-07-14] MEDS: [UNRECOGNIZED DRUG - OTHER] IVPB (12:30)
[2024-07-14] MEDS: ATROPINE 0.4 mg/ml IV (13:10)
[2024-07-14] MEDS: LEUCOVORIN CALCIUM 100 MG, TUBING SECONDARY 1 EACH in 5 % DEXTROSE 250 ML 250 ML 170 MG IV (13:12)
[2024-07-14] MEDS: DEXTROSE 5% IV (13:12)
[2024-07-14] MEDS: TUBING PRIMARY IV (13:12)
[2024-07-14] MEDS: IRINOTECAN IV (13:12)
[2024-07-14] MEDS: FLUOROURACIL IV (14:59)
[2024-07-14] MEDS: CADD MED CASSETTE RESERVOIR IV (14:59)
[2024-07-16 13:52] VITALS: BP 147/83; PULSE 66; RESP 18; TEMP 35.4; O2SAT 96
[2024-07-16] MEDS: HEPARIN 500 UNIT/5 ML SYRINGE IVF (14:46)
[2024-07-16] MEDS: SODIUM CHLORIDE 0.9 % (FLUSH) 10 ML SYRINGE IVF (14:46)
[2024-07-27 13:14] LABS: Hematocrit 37.4 % (33.0-51.0); Hemoglobin* 11.9 gm/dL (12.0-16.0); Immature Granulocytes Abs Auto 0.01 K/uL (0.00-0.30); Immature Granulocytes Pct Auto 0.2 %; Mean Corpuscular HGB Conc 32 gm/dL (32-36); Mean Corpuscular Hemoglobin 32 pg (26-34); Mean Corpuscular Volume 101 fL (80-100); RDW Coefficient of Variation % 16.0 % (11.5-15.5); Red Blood Count 3.69 m/uL (4.00-5.20); White Blood Count* 6.17 K/uL (4.50-11.00)
[2024-07-27 13:18] LABS: Lymphocytes Absolute Auto 1.10 K/uL (0.90-2.90); Slide Review Reflex No
[2024-07-27 13:26] LABS: Albumin* 3.9 g/dL (3.3-5.0); Chloride* 106 mmol/L (96-114); Potassium* 3.7 mmol/L (3.6-5.1); Sodium* 140 mmol/L (135-149)
[2024-07-27 13:29] LABS: Alanine Aminotransferase* 24 U/L (4-35); Alkaline Phosphatase* 84 U/L (40-150); Anion Gap 10 mEq/L (7-15); Aspartate Amino Transferase* 28 U/L (12-35); Bilirubin Total* 0.6 mg/dL (0.1-1.5); Blood Urea Nitrogen* 9 mg/dL (7-30); Carbon Dioxide* 24 mmol/L (20-32); Creatinine* 0.7 mg/dL (0.5-1.5); Est. Creatinine Clearance* 45.82; Estimated Glomerular Filt Rate 89 ml/min; Total Protein* 6.2 g/dL (6.0-8.3)
[2024-07-27 13:30] LABS: Calcium* 8.9 mg/dL (8.4-10.6); Glucose* 97 mg/dL (60-115)
[2024-07-27 13:48] LABS: Protein Creatinine Ratio Urine 0.03 (0-0.19)
[2024-07-28 10:38] VITALS: BP 114/69; PULSE 63; RESP 18; TEMP 35; O2SAT 95
[2024-07-28] MEDS: SODIUM CHLORIDE 0.9 % (FLUSH) 10 ML SYRINGE IVF (11:09)
[2024-07-28] MEDS: DEXAMETHASONE 10 MG/ML PF IVP (11:32)
[2024-07-28] MEDS: BEVACIZUMAB ADCD IVPB (11:38)
[2024-07-28] MEDS: [UNRECOGNIZED DRUG - OTHER] IVPB (11:38)
[2024-07-28] MEDS: TUBING SECONDARY IVPB (11:38)
[2024-07-28] MEDS: TUBING PRIMARY IV (12:42)
[2024-07-28] MEDS: LEUCOVORIN CALCIUM 100 MG, TUBING SECONDARY 1 EACH in 5 % DEXTROSE 250 ML 250 ML 170 MG IV (12:42)
[2024-07-28] MEDS: DEXTROSE 5% IV (12:42)
[2024-07-28] MEDS: IRINOTECAN IV (12:42)
[2024-07-28] MEDS: ATROPINE 0.4 mg/ml IV (12:43)
[2024-07-28] MEDS: CADD MED CASSETTE RESERVOIR IV (14:28)
[2024-07-28] MEDS: FLUOROURACIL IV (14:28)
[2024-07-31 14:53] VITALS: BP 153/73; PULSE 56; RESP 18; TEMP 35.7; O2SAT 99
[2024-07-31] MEDS: PEGFILGRASTIM-JMDB (Fulphila) 6 MG/0.6 ML SUBCUT (14:56)
[2024-08-11 09:51] VITALS: BP 130/66; PULSE 64; RESP 18; TEMP 36; O2SAT 100
[2024-08-11 10:07] LABS: Hematocrit 39.4 % (33.0-51.0); Hemoglobin* 12.6 gm/dL (12.0-16.0); Immature Granulocytes Pct Auto 1.4 %; Mean Corpuscular HGB Conc 32 gm/dL (32-36); Mean Corpuscular Hemoglobin 33 pg (26-34); Mean Corpuscular Volume 102 fL (80-100); RDW Coefficient of Variation % 16.4 % (11.5-15.5); Red Blood Count 3.86 m/uL (4.00-5.20); White Blood Count* 18.19 K/uL (4.50-11.00)
[2024-08-11 10:15] LABS: Immature Granulocytes Abs Auto 0.30 K/uL (0.00-0.30); Lymphocytes Absolute Auto 1.50 K/uL (0.90-2.90); Slide Review Reflex No
[2024-08-11 10:20] LABS: Albumin* 3.9 g/dL (3.3-5.0); Chloride* 106 mmol/L (96-114)
[2024-08-11 10:21] LABS: Potassium* 3.9 mmol/L (3.6-5.1); Sodium* 140 mmol/L (135-149)
[2024-08-11 10:23] LABS: Anion Gap 8 mEq/L (7-15); Bilirubin Total* 0.5 mg/dL (0.1-1.5); Blood Urea Nitrogen* 11 mg/dL (7-30); Carbon Dioxide* 26 mmol/L (20-32); Creatinine* 0.8 mg/dL (0.5-1.5); Est. Creatinine Clearance* 44.10; Estimated Glomerular Filt Rate 76 ml/min
[2024-08-11 10:24] LABS: Alanine Aminotransferase* 23 U/L (4-35); Alkaline Phosphatase* 149 U/L (40-150); Aspartate Amino Transferase* 29 U/L (12-35); Calcium* 9.2 mg/dL (8.4-10.6); Glucose* 106 mg/dL (60-115); Total Protein* 6.3 g/dL (6.0-8.3)
[2024-08-11 11:01] LABS: Protein Creatinine Ratio Urine 0.05 (0-0.19)
[2024-08-11] MEDS: SODIUM CHLORIDE 0.9 % (FLUSH) 10 ML SYRINGE IVF ×2 (11:31→14:27)
[2024-08-11] MEDS: DEXAMETHASONE 10 MG/ML PF IVP (11:31)
[2024-08-11] MEDS: [UNRECOGNIZED DRUG - OTHER] IVPB (11:50)
[2024-08-11] MEDS: BEVACIZUMAB ADCD IVPB (11:50)
[2024-08-11] MEDS: TUBING SECONDARY IVPB (11:50)
[2024-08-11] MEDS: TUBING PRIMARY IV (12:33)
[2024-08-11] MEDS: ATROPINE 0.4 mg/ml IV (12:33)
[2024-08-11] MEDS: IRINOTECAN IV (12:33)
[2024-08-11] MEDS: DEXTROSE 5% IV (12:33)
[2024-08-11] MEDS: LEUCOVORIN CALCIUM 100 MG, TUBING SECONDARY 1 EACH in 5 % DEXTROSE 250 ML 250 ML 170 MG IV (12:34)
[2024-08-11] MEDS: CADD MED CASSETTE RESERVOIR IV (14:19)
[2024-08-11] MEDS: FLUOROURACIL IV (14:19)
[2024-08-13 13:12] VITALS: BP 137/77; PULSE 60; RESP 16; TEMP 35.9; O2SAT 98
[2024-08-13] MEDS: HEPARIN 500 UNIT/5 ML SYRINGE IVF (13:28)
[2024-08-13] MEDS: SODIUM CHLORIDE 0.9 % (FLUSH) 10 ML SYRINGE IVF (13:28)
[2024-08-26 09:44] LABS: Hematocrit 38.4 % (33.0-51.0); Hemoglobin* 12.2 gm/dL (12.0-16.0); Immature Granulocytes Abs Auto 0.00 K/uL (0.00-0.30); Immature Granulocytes Pct Auto 0.0 %; Lymphocytes Absolute Auto 1.06 K/uL (0.90-2.90); Mean Corpuscular HGB Conc 32 gm/dL (32-36); Mean Corpuscular Hemoglobin 33 pg (26-34); Mean Corpuscular Volume 103 fL (80-100); RDW Coefficient of Variation % 16.4 % (11.5-15.5); Red Blood Count 3.74 m/uL (4.00-5.20); White Blood Count* 4.87 K/uL (4.50-11.00)
[2024-08-26 09:45] LABS: Slide Review Reflex No
[2024-08-26 10:02] LABS: Albumin* 3.9 g/dL (3.3-5.0); Chloride* 106 mmol/L (96-114); Potassium* 4.1 mmol/L (3.6-5.1); Sodium* 139 mmol/L (135-149)
[2024-08-26 10:04] LABS: Blood Urea Nitrogen* 11 mg/dL (7-30); Creatinine* 0.7 mg/dL (0.5-1.5); Est. Creatinine Clearance* 44.10; Estimated Glomerular Filt Rate 89 ml/min
[2024-08-26 10:05] LABS: Alanine Aminotransferase* 23 U/L (4-35); Alkaline Phosphatase* 99 U/L (40-150); Anion Gap 7 mEq/L (7-15); Aspartate Amino Transferase* 28 U/L (12-35); Bilirubin Total* 0.6 mg/dL (0.1-1.5); Calcium* 9.1 mg/dL (8.4-10.6); Carbon Dioxide* 26 mmol/L (20-32); Glucose* 108 mg/dL (60-115); Total Protein* 6.2 g/dL (6.0-8.3)
[2024-08-26 11:02] LABS: Protein Creatinine Ratio Urine 0.05 (0-0.19)
[2024-08-26] MEDS: SODIUM CHLORIDE 0.9 % (FLUSH) 10 ML SYRINGE IVF (11:46)
[2024-08-26] MEDS: TUBING SECONDARY IVPB (11:48)
[2024-08-26] MEDS: BEVACIZUMAB ADCD IVPB (11:48)
[2024-08-26] MEDS: [UNRECOGNIZED DRUG - OTHER] IVPB (11:48)
[2024-08-26] MEDS: ATROPINE 0.4 mg/ml IV ×2 (12:34→14:21)
[2024-08-26] MEDS: TUBING PRIMARY IV (12:38)
[2024-08-26] MEDS: LEUCOVORIN CALCIUM 100 MG, TUBING SECONDARY 1 EACH in 5 % DEXTROSE 250 ML 250 ML 170 MG IV (12:38)
[2024-08-26] MEDS: IRINOTECAN IV (12:38)
[2024-08-26] MEDS: DEXTROSE 5% IV (12:38)
[2024-08-26] MEDS: FLUOROURACIL IV (14:24)
[2024-08-26] MEDS: CADD MED CASSETTE RESERVOIR IV (14:24)
[2024-08-28] MEDS: HEPARIN 500 UNIT/5 ML SYRINGE IVF (11:58)
[2024-08-28] MEDS: PEGFILGRASTIM-JMDB (Fulphila) 6 MG/0.6 ML SUBCUT (11:58)
[2024-08-28] MEDS: SODIUM CHLORIDE 0.9 % (FLUSH) 10 ML SYRINGE IVF (11:58)
[2024-09-14 10:50] LABS: Hematocrit 41.0 % (33.0-51.0); Hemoglobin* 12.9 gm/dL (12.0-16.0); Immature Granulocytes Abs Auto 0.10 K/uL (0.00-0.30); Immature Granulocytes Pct Auto 0.8 %; Mean Corpuscular HGB Conc 32 gm/dL (32-36); Mean Corpuscular Hemoglobin 32 pg (26-34); Mean Corpuscular Volume 102 fL (80-100); RDW Coefficient of Variation % 16.1 % (11.5-15.5); Red Blood Count 4.02 m/uL (4.00-5.20); White Blood Count* 12.22 K/uL (4.50-11.00)
[2024-09-14 11:04] LABS: Lymphocytes Absolute Auto 1.40 K/uL (0.90-2.90); Protein Creatinine Ratio Urine 0.05 (0-0.19); Slide Review Reflex No
[2024-09-14 11:13] LABS: Albumin* 3.9 g/dL (3.3-5.0); Chloride* 101 mmol/L (96-114); Potassium* 4.5 mmol/L (3.6-5.1); Sodium* 135 mmol/L (135-149)
[2024-09-14 11:15] LABS: Blood Urea Nitrogen* 14 mg/dL (7-30); Cholesterol* 119 mg/dL (90-199); Creatinine* 0.7 mg/dL (0.5-1.5); Est. Creatinine Clearance* 44.10; Estimated Glomerular Filt Rate 89 ml/min; HDL Cholesterol* 31 mg/dL (>=50); Triglycerides* 138 mg/dL (40-149)
[2024-09-14 11:16] LABS: Alanine Aminotransferase* 22 U/L (4-35); Alkaline Phosphatase* 131 U/L (40-150); Anion Gap 7 mEq/L (7-15); Aspartate Amino Transferase* 33 U/L (12-35); Bilirubin Total* 0.5 mg/dL (0.1-1.5); Calcium* 9.3 mg/dL (8.4-10.6); Carbon Dioxide* 27 mmol/L (20-32); Glucose* 92 mg/dL (60-115); Total Protein* 6.5 g/dL (6.0-8.3)
[2024-09-22] MEDS: SODIUM CHLORIDE 0.9 % (FLUSH) 10 ML SYRINGE IVF ×3 (09:55→16:46)
[2024-09-22 10:15] LABS: Hematocrit 39.6 % (33.0-51.0); Hemoglobin* 12.5 gm/dL (12.0-16.0); Immature Granulocytes Abs Auto 0.05 K/uL (0.00-0.30); Immature Granulocytes Pct Auto 0.5 %; Lymphocytes Absolute Auto 1.10 K/uL (0.90-2.90); Mean Corpuscular HGB Conc 32 gm/dL (32-36); Mean Corpuscular Hemoglobin 32 pg (26-34); Mean Corpuscular Volume 102 fL (80-100); RDW Coefficient of Variation % 15.8 % (11.5-15.5); Red Blood Count 3.88 m/uL (4.00-5.20); Slide Review Reflex No; White Blood Count* 9.56 K/uL (4.50-11.00)
[2024-09-22 10:29] LABS: Albumin* 3.9 g/dL (3.3-5.0); Chloride* 104 mmol/L (96-114); Potassium* 3.8 mmol/L (3.6-5.1); Sodium* 138 mmol/L (135-149)
[2024-09-22 10:32] LABS: Alanine Aminotransferase* 23 U/L (4-35); Alkaline Phosphatase* 94 U/L (40-150); Anion Gap 8 mEq/L (7-15); Aspartate Amino Transferase* 31 U/L (12-35); Bilirubin Total* 0.5 mg/dL (0.1-1.5); Blood Urea Nitrogen* 9 mg/dL (7-30); Calcium* 9.4 mg/dL (8.4-10.6); Carbon Dioxide* 26 mmol/L (20-32); Creatinine* 0.6 mg/dL (0.5-1.5); Est. Creatinine Clearance* 44.10; Estimated Glomerular Filt Rate 92 ml/min; Glucose* 108 mg/dL (60-115); Total Protein* 6.5 g/dL (6.0-8.3)
[2024-09-22 10:35] LABS: Protein Creatinine Ratio Urine 0.04 (0-0.19)
[2024-09-22] MEDS: [UNRECOGNIZED DRUG - OTHER] IVPB (11:39)
[2024-09-22] MEDS: TUBING SECONDARY IVPB (11:39)
[2024-09-22] MEDS: BEVACIZUMAB ADCD IVPB (11:39)
[2024-09-22] MEDS: dexAMETHasone 20 MG in 0.9 % SODIUM CHLORIDE 100 ml 100 ML 410 MG IVPB (12:13)
[2024-09-22] MEDS: OXALIPLATIN 5 MG/ML INJ 110 MG, TUBING PRIMARY 1 EACH in 5 % DEXTROSE 250 ML 250 ML 136 MG IV (12:41)
[2024-09-22] MEDS: DEXTROSE 5% IV (14:55)
[2024-09-22] MEDS: IRINOTECAN IV (14:55)
[2024-09-22] MEDS: TUBING PRIMARY IV (14:55)
[2024-09-22] MEDS: ATROPINE 0.4 mg/ml IV (14:56)
[2024-09-22] MEDS: LEUCOVORIN CALCIUM 100 MG, TUBING SECONDARY 1 EACH in 5 % DEXTROSE 250 ML 250 ML 170 MG IV (14:56)
[2024-09-22] MEDS: FLUOROURACIL IV (16:38)
[2024-09-22] MEDS: CADD MED CASSETTE RESERVOIR IV (16:38)
--- NOTE | 2024-09-23 15:00 | ONC.NURNOTE ---
Patient scheduled for US guided liver biopsy for October 01at noon. Per radiology all instructions will be in patient's portal. Call back number [phone] if needing to reschedule Message left on patient's voicemail
[2024-09-24 15:47] VITALS: BP 145/77; PULSE 59; RESP 18; TEMP 37; O2SAT 97
[2024-09-24] MEDS: SODIUM CHLORIDE 0.9 % (FLUSH) 10 ML SYRINGE IVF (16:10)
[2024-09-24] MEDS: HEPARIN 500 UNIT/5 ML SYRINGE IVF (16:10)
[2024-09-25] MEDS: PEGFILGRASTIM-JMDB (Fulphila) 6 MG/0.6 ML SUBCUT (15:09)
[2024-10-06 09:36] VITALS: BP 144/75; PULSE 65; RESP 16; TEMP 35.7; O2SAT 100
[2024-10-06 10:08] LABS: Hematocrit 38.6 % (33.0-51.0); Hemoglobin* 12.2 gm/dL (12.0-16.0); Immature Granulocytes Pct Auto 1.6 %; Mean Corpuscular HGB Conc 32 gm/dL (32-36); Mean Corpuscular Hemoglobin 32 pg (26-34); Mean Corpuscular Volume 101 fL (80-100); RDW Coefficient of Variation % 15.5 % (11.5-15.5); Red Blood Count 3.81 m/uL (4.00-5.20); White Blood Count* 17.89 K/uL (4.50-11.00)
[2024-10-06 10:13] LABS: Immature Granulocytes Abs Auto 0.30 K/uL (0.00-0.30); Lymphocytes Absolute Auto 1.40 K/uL (0.90-2.90); Slide Review Reflex No
[2024-10-06 10:19] LABS: Protein Creatinine Ratio Urine 0.05 (0-0.19)
[2024-10-06 10:28] LABS: Albumin* 3.9 g/dL (3.3-5.0); Chloride* 102 mmol/L (96-114); Potassium* 4.3 mmol/L (3.6-5.1); Sodium* 137 mmol/L (135-149)
[2024-10-06 10:31] LABS: Alanine Aminotransferase* 22 U/L (4-35); Alkaline Phosphatase* 160 U/L (40-150); Anion Gap 8 mEq/L (7-15); Aspartate Amino Transferase* 29 U/L (12-35); Bilirubin Total* 0.3 mg/dL (0.1-1.5); Blood Urea Nitrogen* 10 mg/dL (7-30); Carbon Dioxide* 27 mmol/L (20-32); Creatinine* 0.7 mg/dL (0.5-1.5); Est. Creatinine Clearance* 44.10; Estimated Glomerular Filt Rate 89 ml/min; Total Protein* 6.5 g/dL (6.0-8.3)
[2024-10-06 10:32] LABS: Calcium* 9.2 mg/dL (8.4-10.6); Glucose* 103 mg/dL (60-115)
[2024-10-06] MEDS: SODIUM CHLORIDE 0.9 % (FLUSH) 10 ML SYRINGE IVF (11:02)
[2024-10-06] MEDS: HEPARIN 500 UNIT/5 ML SYRINGE IVF (11:02)
--- NOTE | 2024-10-06 11:20 | ONC.NURNOTE ---
Pt here for Bevacizumab and Folfirinox, platelets 87 today. Labs reviewed by Thi Mckee APRN and orders received to hold treatment x 1 week. Pt verbalized understanding of plan of care.
[2024-10-12] MEDS: HEPARIN 500 UNIT/5 ML SYRINGE IVF (13:45)
[2024-10-12] MEDS: SODIUM CHLORIDE 0.9 % (FLUSH) 10 ML SYRINGE IVF (13:45)
[2024-10-12 14:06] LABS: Hematocrit 39.3 % (33.0-51.0); Hemoglobin* 12.4 gm/dL (12.0-16.0); Immature Granulocytes Pct Auto 0.4 %; Mean Corpuscular HGB Conc 32 gm/dL (32-36); Mean Corpuscular Hemoglobin 32 pg (26-34); Mean Corpuscular Volume 101 fL (80-100); RDW Coefficient of Variation % 15.8 % (11.5-15.5); Red Blood Count 3.88 m/uL (4.00-5.20); White Blood Count* 14.13 K/uL (4.50-11.00)
[2024-10-12 14:08] LABS: Immature Granulocytes Abs Auto 0.10 K/uL (0.00-0.30); Lymphocytes Absolute Auto 1.40 K/uL (0.90-2.90); Slide Review Reflex No
[2024-10-12 14:28] LABS: Albumin* 3.7 g/dL (3.3-5.0); Chloride* 106 mmol/L (96-114)
[2024-10-12 14:29] LABS: Potassium* 4.1 mmol/L (3.6-5.1); Sodium* 137 mmol/L (135-149)
[2024-10-12 14:31] LABS: Blood Urea Nitrogen* 10 mg/dL (7-30); Creatinine* 0.6 mg/dL (0.5-1.5); Est. Creatinine Clearance* 44.10; Estimated Glomerular Filt Rate 92 ml/min
[2024-10-12 14:32] LABS: Alanine Aminotransferase* 17 U/L (4-35); Alkaline Phosphatase* 119 U/L (40-150); Anion Gap 7 mEq/L (7-15); Aspartate Amino Transferase* 28 U/L (12-35); Bilirubin Total* 0.4 mg/dL (0.1-1.5); Calcium* 9.0 mg/dL (8.4-10.6); Carbon Dioxide* 24 mmol/L (20-32); Glucose* 112 mg/dL (60-115); Total Protein* 6.3 g/dL (6.0-8.3)
[2024-10-12 15:12] LABS: Protein Creatinine Ratio Urine 0.04 (0-0.19)
[2024-10-13] MEDS: SODIUM CHLORIDE 0.9 % (FLUSH) 10 ML SYRINGE IVF ×3 (10:21→15:34)
[2024-10-13] MEDS: TUBING SECONDARY IVPB (10:37)
[2024-10-13] MEDS: BEVACIZUMAB ADCD IVPB (10:37)
[2024-10-13] MEDS: [UNRECOGNIZED DRUG - OTHER] IVPB (10:37)
[2024-10-13] MEDS: dexAMETHasone 20 MG in 0.9 % SODIUM CHLORIDE 100 ml 100 ML 408 MG IVPB (11:24)
[2024-10-13] MEDS: 5 % DEXTROSE 250 ML IV (11:45)
[2024-10-13] MEDS: OXALIPLATIN 5 MG/ML INJ 110 MG, TUBING PRIMARY 1 EACH in 5 % DEXTROSE 250 ML 250 ML 136 MG IV (11:45)
[2024-10-13] MEDS: LEUCOVORIN CALCIUM 100 MG, TUBING SECONDARY 1 EACH in 5 % DEXTROSE 250 ML 250 ML 170 MG IV (13:51)
[2024-10-13] MEDS: ATROPINE 0.4 mg/ml IV (13:51)
[2024-10-13] MEDS: TUBING PRIMARY IV (13:51)
[2024-10-13] MEDS: DEXTROSE 5% IV (13:51)
[2024-10-13] MEDS: IRINOTECAN IV (13:51)
[2024-10-13] MEDS: FLUOROURACIL IV (15:36)
[2024-10-13] MEDS: CADD MED CASSETTE RESERVOIR IV (15:36)
[2024-10-15] MEDS: SODIUM CHLORIDE 0.9 % (FLUSH) 10 ML SYRINGE IVF (15:02)
[2024-10-15] MEDS: HEPARIN 500 UNIT/5 ML SYRINGE IVF (15:02)
--- NOTE | 2024-10-15 15:37 | ONC.NURNOTE ---
Pt present at [facility] for pump d/c and pt shared a new symptom she has noted with this cycle. Christie states that when she sneezes, coughs, tears up, or anything that creates pressure in her head she gets sharp, shooting pains in her eyes. She reports the pain being quite significant. She also notes that touching her eyes makes it worse. Christie says that she experienced this once with the first cycle after Oxaliplatin was added but that this second cycle she experienced it much more often. She also shares that she had sensitivity to cold once this cycle where she didn't at all before. RN discussed with Thi Mckee APRN, [facility] and Dr. Menchaca. Both providers recommended pt see her eye doctor. She has a call in to that office to set up a visit. RN discharged pt and instructed her to keep track of these episodes; intensity, length, and precipitating factors.
[2024-10-27 09:37] VITALS: BP 127/63; PULSE 57; RESP 15; TEMP 36; O2SAT 100
[2024-10-27 10:02] LABS: Hematocrit 36.0 % (33.0-51.0); Hemoglobin* 11.4 gm/dL (12.0-16.0); Immature Granulocytes Abs Auto 0.01 K/uL (0.00-0.30); Immature Granulocytes Pct Auto 0.2 %; Mean Corpuscular HGB Conc 32 gm/dL (32-36); Mean Corpuscular Hemoglobin 31 pg (26-34); Mean Corpuscular Volume 99 fL (80-100); RDW Coefficient of Variation % 15.6 % (11.5-15.5); Red Blood Count 3.64 m/uL (4.00-5.20); White Blood Count* 4.52 K/uL (4.50-11.00)
[2024-10-27 10:04] LABS: Lymphocytes Absolute Auto 0.80 K/uL (0.90-2.90); Slide Review Reflex No
[2024-10-27 10:30] LABS: Albumin* 3.6 g/dL (3.3-5.0); Chloride* 104 mmol/L (96-114)
[2024-10-27 10:31] LABS: Potassium* 3.7 mmol/L (3.6-5.1); Sodium* 138 mmol/L (135-149)
[2024-10-27 10:33] LABS: Alanine Aminotransferase* 18 U/L (4-35); Anion Gap 7 mEq/L (7-15); Aspartate Amino Transferase* 26 U/L (12-35); Bilirubin Total* 0.5 mg/dL (0.1-1.5); Blood Urea Nitrogen* 9 mg/dL (7-30); Carbon Dioxide* 27 mmol/L (20-32); Creatinine* 0.6 mg/dL (0.5-1.5); Est. Creatinine Clearance* 44.10; Estimated Glomerular Filt Rate 92 ml/min
[2024-10-27 10:34] LABS: Alkaline Phosphatase* 101 U/L (40-150); Calcium* 9.0 mg/dL (8.4-10.6); Glucose* 109 mg/dL (60-115); Total Protein* 6.2 g/dL (6.0-8.3)
[2024-10-27 10:35] LABS: Protein Creatinine Ratio Urine 0.03 (0-0.19)
[2024-10-27] MEDS: [UNRECOGNIZED DRUG - OTHER] IVPB (11:46)
[2024-10-27] MEDS: BEVACIZUMAB ADCD IVPB (11:46)
[2024-10-27] MEDS: TUBING SECONDARY IVPB (11:46)
[2024-10-27] MEDS: dexAMETHasone 20 MG in 0.9 % SODIUM CHLORIDE 100 ml 100 ML 408 MG IVPB (12:29)
[2024-10-27] MEDS: OXALIPLATIN 5 MG/ML INJ 110 MG, TUBING PRIMARY 1 EACH in 5 % DEXTROSE 250 ML 250 ML 136 MG IV (12:52)
[2024-10-27] MEDS: ATROPINE 0.4 mg/ml IV (14:57)
[2024-10-27] MEDS: DEXTROSE 5% IV (15:02)
[2024-10-27] MEDS: IRINOTECAN IV (15:02)
[2024-10-27] MEDS: TUBING PRIMARY IV (15:02)
[2024-10-27] MEDS: LEUCOVORIN CALCIUM 100 MG, TUBING SECONDARY 1 EACH in 5 % DEXTROSE 250 ML 250 ML 170 MG IV (15:02)
[2024-10-27] MEDS: SODIUM CHLORIDE 0.9 % (FLUSH) 10 ML SYRINGE IVF (16:42)
[2024-10-27] MEDS: CADD MED CASSETTE RESERVOIR IV (16:45)
[2024-10-27] MEDS: FLUOROURACIL IV (16:45)
[2024-10-29 15:21] VITALS: BP 153/78; PULSE 61; RESP 16; TEMP 36.5; O2SAT 100
[2024-10-29] MEDS: SODIUM CHLORIDE 0.9 % (FLUSH) 10 ML SYRINGE IVF (15:25)
[2024-10-29] MEDS: HEPARIN 500 UNIT/5 ML SYRINGE IVF (15:25)
[2024-10-30] MEDS: PEGFILGRASTIM-JMDB (Fulphila) 6 MG/0.6 ML SUBCUT (14:19)
[2024-11-09] MEDS: HEPARIN 500 UNIT/5 ML SYRINGE IVF ×2 (14:26→16:08)
[2024-11-09] MEDS: SODIUM CHLORIDE 0.9 % (FLUSH) 10 ML SYRINGE IVF ×2 (14:26→16:08)
[2024-11-09 14:35] LABS: Hematocrit 36.9 % (33.0-51.0); Hemoglobin* 11.7 gm/dL (12.0-16.0); Immature Granulocytes Pct Auto 1.6 %; Mean Corpuscular HGB Conc 32 gm/dL (32-36); Mean Corpuscular Hemoglobin 32 pg (26-34); Mean Corpuscular Volume 99 fL (80-100); RDW Coefficient of Variation % 16.3 % (11.5-15.5); Red Blood Count 3.72 m/uL (4.00-5.20); White Blood Count* 16.81 K/uL (4.50-11.00)
[2024-11-09 14:37] LABS: Immature Granulocytes Abs Auto 0.30 K/uL (0.00-0.30); Lymphocytes Absolute Auto 1.40 K/uL (0.90-2.90); Slide Review Reflex No
[2024-11-09 14:51] LABS: Albumin* 3.5 g/dL (3.3-5.0); Chloride* 104 mmol/L (96-114); Potassium* 4.0 mmol/L (3.6-5.1); Sodium* 137 mmol/L (135-149)
[2024-11-09 14:54] LABS: Alanine Aminotransferase* 19 U/L (4-35); Alkaline Phosphatase* 132 U/L (40-150); Anion Gap 5 mEq/L (7-15); Aspartate Amino Transferase* 28 U/L (12-35); Bilirubin Total* 0.4 mg/dL (0.1-1.5); Blood Urea Nitrogen* 7 mg/dL (7-30); Carbon Dioxide* 28 mmol/L (20-32); Creatinine* 0.6 mg/dL (0.5-1.5); Est. Creatinine Clearance* 44.10; Estimated Glomerular Filt Rate 92 ml/min; Total Protein* 5.9 g/dL (6.0-8.3)
[2024-11-09 14:55] LABS: Calcium* 8.9 mg/dL (8.4-10.6); Glucose* 101 mg/dL (60-115)
[2024-11-09 14:59] LABS: Protein Creatinine Ratio Urine 0.03 (0-0.19)
--- NOTE | 2024-11-09 15:28 | ONC.NURNOTE ---
Addendum entered by Soha Webb RN 11/09/24 16:10: Pt will see Dr. Mc as scheduled tomorrow. Original Note: Called pt with low plt result. Treatment will be held tomorrow. Pt will return to [facility] now to have her port de-accessed.
[2024-11-10] MEDS: HEPARIN 500 UNIT/5 ML SYRINGE IVF ×2 (10:27→15:32)
[2024-11-10] MEDS: SODIUM CHLORIDE 0.9 % (FLUSH) 10 ML SYRINGE IVF ×2 (10:27→15:32)
[2024-11-10 13:38] VITALS: BP 140/68; PULSE 59; TEMP 36.6; O2SAT 99
[2024-11-10 13:47] VITALS: BP 140/68; PULSE 59; RESP 16; TEMP 36.6; O2SAT 99
[2024-11-10 14:05] VITALS: BP 132/73; PULSE 58; RESP 16; TEMP 36.6; O2SAT 99
[2024-11-10 14:45] VITALS: BP 119/69; PULSE 57; RESP 16; TEMP 36.6; O2SAT 99
[2024-11-10 15:28] VITALS: BP 127/64; PULSE 53; RESP 16; TEMP 36.7; O2SAT 100
[2024-11-11 09:42] VITALS: BP 113/64; PULSE 56; TEMP 36.8; O2SAT 97
[2024-11-11] MEDS: HEPARIN 500 UNIT/5 ML SYRINGE IVF (12:33)
[2024-11-11] MEDS: SODIUM CHLORIDE 0.9 % (FLUSH) 10 ML SYRINGE IVF (12:33)
[2024-11-13] MEDS: HEPARIN 500 UNIT/5 ML SYRINGE IVF (15:27)
[2024-11-13] MEDS: SODIUM CHLORIDE 0.9 % (FLUSH) 10 ML SYRINGE IVF (15:27)
[2024-11-16] VITALS (7 sets, daily range): BP systolic 114–134; BP diastolic 64–79; PULSE 52–63; RESP 16; TEMP 36–36.8; O2SAT 97–99
[2024-11-16] MEDS: SODIUM CHLORIDE 0.9 % (FLUSH) 10 ML SYRINGE IVF ×2 (10:35→13:40)
[2024-11-16] MEDS: HEPARIN 500 UNIT/5 ML SYRINGE IVF (13:40)
[2024-11-17 09:48] LABS: Hematocrit 37.0 % (33.0-51.0); Hemoglobin* 11.7 gm/dL (12.0-16.0); Immature Granulocytes Pct Auto 0.4 %; Lymphocytes Absolute Auto 1.00 K/uL (0.90-2.90); Mean Corpuscular HGB Conc 32 gm/dL (32-36); Mean Corpuscular Hemoglobin 32 pg (26-34); Mean Corpuscular Volume 100 fL (80-100); RDW Coefficient of Variation % 17.2 % (11.5-15.5); Red Blood Count 3.71 m/uL (4.00-5.20); White Blood Count* 11.07 K/uL (4.50-11.00)
[2024-11-17 10:00] LABS: Albumin* 3.6 g/dL (3.3-5.0); Chloride* 104 mmol/L (96-114); Potassium* 4.0 mmol/L (3.6-5.1); Sodium* 138 mmol/L (135-149)
[2024-11-17 10:03] LABS: Alanine Aminotransferase* 19 U/L (4-35); Alkaline Phosphatase* 112 U/L (40-150); Anion Gap 7 mEq/L (7-15); Aspartate Amino Transferase* 32 U/L (12-35); Bilirubin Total* 0.5 mg/dL (0.1-1.5); Blood Urea Nitrogen* 9 mg/dL (7-30); Carbon Dioxide* 27 mmol/L (20-32); Creatinine* 0.6 mg/dL (0.5-1.5); Est. Creatinine Clearance* 44.10; Estimated Glomerular Filt Rate 92 ml/min; Total Protein* 6.1 g/dL (6.0-8.3)
[2024-11-17 10:04] LABS: Calcium* 9.2 mg/dL (8.4-10.6); Glucose* 121 mg/dL (60-115); Immature Granulocytes Abs Auto 0.00 K/uL (0.00-0.30); Slide Review Reflex No
[2024-11-17 10:19] VITALS: BP 125/68; PULSE 63; RESP 16; TEMP 36.9; O2SAT 98
[2024-11-17] MEDS: SODIUM CHLORIDE 0.9 % (FLUSH) 10 ML SYRINGE IVF ×2 (10:35→15:44)
[2024-11-17] MEDS: [UNRECOGNIZED DRUG - OTHER] IVPB (10:43)
[2024-11-17] MEDS: BEVACIZUMAB ADCD IVPB (10:43)
[2024-11-17] MEDS: TUBING SECONDARY IVPB (10:43)
[2024-11-17] MEDS: dexAMETHasone 20 MG in 0.9 % SODIUM CHLORIDE 100 ml 100 ML 408 MG IVPB (11:19)
[2024-11-17] MEDS: 5 % DEXTROSE 250 ML IV (11:41)
[2024-11-17] MEDS: OXALIPLATIN 5 MG/ML INJ 110 MG, TUBING PRIMARY 1 EACH in 5 % DEXTROSE 250 ML 250 ML 136 MG IV (11:47)
[2024-11-17] MEDS: DEXTROSE 5% IV (14:03)
[2024-11-17] MEDS: TUBING PRIMARY IV (14:03)
[2024-11-17] MEDS: IRINOTECAN IV (14:03)
[2024-11-17] MEDS: LEUCOVORIN CALCIUM 100 MG, TUBING SECONDARY 1 EACH in 5 % DEXTROSE 250 ML 250 ML 170 MG IV (14:03)
[2024-11-17] MEDS: ATROPINE 0.4 mg/ml IV (14:03)
[2024-11-17] MEDS: CADD MED CASSETTE RESERVOIR IV (15:46)
[2024-11-17] MEDS: FLUOROURACIL IV (15:46)
[2024-11-19 14:02] VITALS: BP 125/75; PULSE 68; RESP 16; TEMP 36.6; O2SAT 98
[2024-11-19] MEDS: SODIUM CHLORIDE 0.9 % (FLUSH) 10 ML SYRINGE IVF (14:21)
[2024-11-19] MEDS: HEPARIN 500 UNIT/5 ML SYRINGE IVF (14:21)
[2024-11-19] MEDS: ROMIPLOSTIM 125 MCG SUBCUT (14:40)
--- NOTE | 2024-11-19 15:35 | ONC.NURNOTE ---
Pt here for pump off and nplate. Written information given to pt on nplate, questions answered. Tolerated well. Endoscopy Rn discussed with Thi Mckee APRN if [id number]-[id number] should be held, per Thi due to level of WBC, we will hold. Thi to email Dr. Mc for confirmation of this.
--- NOTE | 2024-11-24 16:19 | ONC.NURNOTE ---
Pt called today to report that she met with an eye doctor today. It was determined that she has a tear in her retina which is accounting for the pain she has been experiencing. Pt is seeing a specialist tomorrow and anticipates a laser surgery/procedure soon. RN instructed Christie to have the eye surgeon call [facility] tomorrow to discuss timing of surgery/procedure with regards to her treatment plan. Pt was last treated with FOLFIRINOX + Bevacizumab on 11/16/2024. She is due next on 12/01/2024.
[2024-11-26 14:15] VITALS: BP 106/64; PULSE 54; RESP 16; TEMP 36.4; O2SAT 98
[2024-11-26] MEDS: HEPARIN 500 UNIT/5 ML SYRINGE IVF (14:30)
[2024-11-26] MEDS: SODIUM CHLORIDE 0.9 % (FLUSH) 10 ML SYRINGE IVF (14:30)
[2024-11-26] MEDS: ROMIPLOSTIM 125 MCG SUBCUT (15:21)
--- NOTE | 2024-11-26 15:28 | ONC.NURNOTE ---
Jesusita held Bevacizumab for upcoming infusions due to pt's retinal procedure at [place] on 11/25/24.
[2024-12-01 09:40] VITALS: BP 123/59; PULSE 60; RESP 16; TEMP 36.2; O2SAT 98
[2024-12-01 10:02] LABS: Hematocrit 33.1 % (33.0-51.0); Hemoglobin* 10.5 gm/dL (12.0-16.0); Immature Granulocytes Abs Auto 0.00 K/uL (0.00-0.30); Immature Granulocytes Pct Auto 0.0 %; Mean Corpuscular HGB Conc 32 gm/dL (32-36); Mean Corpuscular Hemoglobin 32 pg (26-34); Mean Corpuscular Volume 100 fL (80-100); RDW Coefficient of Variation % 17.2 % (11.5-15.5); Red Blood Count 3.32 m/uL (4.00-5.20); White Blood Count* 3.19 K/uL (4.50-11.00)
[2024-12-01 10:03] LABS: Lymphocytes Absolute Auto 0.60 K/uL (0.90-2.90); Slide Review Reflex No
[2024-12-01 10:16] LABS: Albumin* 3.2 g/dL (3.3-5.0); Chloride* 105 mmol/L (96-114); Potassium* 3.9 mmol/L (3.6-5.1); Sodium* 136 mmol/L (135-149)
[2024-12-01 10:19] LABS: Alanine Aminotransferase* 18 U/L (4-35); Alkaline Phosphatase* 104 U/L (40-150); Anion Gap 4 mEq/L (7-15); Aspartate Amino Transferase* 30 U/L (12-35); Bilirubin Total* 0.3 mg/dL (0.1-1.5); Blood Urea Nitrogen* 12 mg/dL (7-30); Carbon Dioxide* 27 mmol/L (20-32); Creatinine* 0.6 mg/dL (0.5-1.5); Est. Creatinine Clearance* 44.10; Estimated Glomerular Filt Rate 92 ml/min; Total Protein* 5.8 g/dL (6.0-8.3)
[2024-12-01 10:20] LABS: Calcium* 8.6 mg/dL (8.4-10.6); Glucose* 105 mg/dL (60-115)
[2024-12-01] MEDS: dexAMETHasone 20 MG in 0.9 % SODIUM CHLORIDE 100 ml 100 ML 408 MG IVPB (11:29)
[2024-12-01] MEDS: SODIUM CHLORIDE 0.9 % (FLUSH) 10 ML SYRINGE IVF (11:29)
[2024-12-01] MEDS: 5 % DEXTROSE 250 ML IV (11:29)
[2024-12-01] MEDS: OXALIPLATIN 5 MG/ML INJ 110 MG, TUBING PRIMARY 1 EACH in 5 % DEXTROSE 250 ML 250 ML 136 MG IV (11:59)
[2024-12-01] MEDS: ATROPINE 0.4 mg/ml IV (14:10)
[2024-12-01] MEDS: LEUCOVORIN CALCIUM 100 MG, TUBING SECONDARY 1 EACH in 5 % DEXTROSE 250 ML 250 ML 170 MG IV (14:14)
[2024-12-01] MEDS: IRINOTECAN IV (14:14)
[2024-12-01] MEDS: DEXTROSE 5% IV (14:14)
[2024-12-01] MEDS: TUBING PRIMARY IV (14:14)
[2024-12-01] MEDS: CADD MED CASSETTE RESERVOIR IV (15:54)
[2024-12-01] MEDS: FLUOROURACIL IV (15:54)
[2024-12-03] MEDS: HEPARIN 500 UNIT/5 ML SYRINGE IVF (14:14)
[2024-12-03] MEDS: SODIUM CHLORIDE 0.9 % (FLUSH) 10 ML SYRINGE IVF (14:14)
[2024-12-03 14:21] VITALS: BP 145/74; PULSE 58; RESP 16; TEMP 36.3
[2024-12-03] MEDS: ROMIPLOSTIM 125 MCG SUBCUT (14:41)
[2024-12-04] MEDS: PEGFILGRASTIM-JMDB (Fulphila) 6 MG/0.6 ML SUBCUT (14:22)
--- NOTE | 2024-12-15 13:52 | ONC.NURNOTE ---
New RX Lonsdurf 20-8.19mg tablet- 3 BID days 1-5 and 8-12 #60 for 28 days supply faxed to [facility] [phone] PA completed via [employer] [phone] Approved from 04/01/24-12/15/25 Case # [id number]
--- NOTE | 2024-12-17 13:38 | ONC.NURNOTE ---
Addendum entered by Alecia Chavez RN 12/23/24 12:48: applications pending [facility] needed dose clarification- refaxed today [facility] pending when the [employer] submit income verification Addendum entered by Alecia Chavez RN 12/21/24 14:48: [facility] emailed drug assistance enrollment for financial hardship to once lokesh returned it will be 2-3 days turnaround for enrollement this administrative underwriter also faxed in application for free drug PAF via [facility] Patient Support Original Note: [facility] Specialty to call patient to check eligibility for their internal bart for financial hardship there are no open grants for colorectal cancer if patient is not eligible for [facility] bart then application will be sent in to [facility] for their patient assistance program
--- NOTE | 2024-12-24 11:27 | ONC.NURNOTE ---
Enrolled in the [facility] Patient Assist Program for [facility] at no cost through 03/31/25 [phone] fax [phone] RX canceled with [facility]
== END 2024-12-26 23:59 | disposition home or self-care (01) ==
LOC: CCIC 09:45
PROVIDERS: Clinical Nurse Specialist; Physician Assistant; PCP Family Medicine; Referring Provider Family Medicine; Visit Provider Internal Medicine Hematology & Oncology
DX: C20 Malignant neoplasm of rectum (principal); C78.7 Secondary malignant neoplasm of liver and intrahepatic bile duct
CPT/HCPCS: 36415; 36430; 36591; 80053; 80061; 82570; 84156; 85025; 85049; 86850; 86900; 86901; 96367; 96368; 96372; 96375; 96413; 96415; 96416; 96417; 99001; 99211; 99214; 99215; G0463; J0461; J0640; J1100; J1642; J2469; J2802; J7030; J7050; J9190; J9206; J9263; P9073; Q5108; Q5129

== ENCOUNTER 2025-01-19 14:03 | Emergency (ER) | payer MEDICARE, SELFPAY ==
--- OUTSIDE RECORDS SUMMARY | 2024-12-09 08:00 | XMS_ITS | Encounter Summary ---
Author Organization [facility] Address [address] [place] [id number] Care Team Providers Care Habilitation Assistant Name Role Phone Elsewhere, Pcp Primary Care Provider Unavailabl e Encounter Details Date Type Department Care Team (Late st Contact Info) Description 12/09/2024 8:00 AM CDT Lab Department of Infusion Therapy in [place], [place] [address] [place] [address] Sabina Bright M.D. [address] [place] [phone] Hypertension Essential Primary (Primary Dx); Malignant Neoplasm Of Rectum (HCC); Secondary Malignant Neoplasm Liver (HCC) 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 Tobacco Use Types Packs/Day Years Used Date Smoking Tobacco: Never Passive Smoke Exposure: Never Smokeless Tobacco: Never Alcohol Use Standard Drinks/Week Comments Yes 1 (1 standard drink = 0.6 oz pur e alcohol) [facility] Utilities Answer Date Recorded In the past 12 months has e electric, gas, oil, or water [email or web address] threatened to shut off services in your [...] by your partner or ex-partner? No 11/22/2022 Hunger Vital Sign Answer Date Recorded [...] things needed for daily living? No 12/10/2023 Housing Stability Answer Date Recorded What is your living situation today? I have a [facility] place to live 12/10/2023 Education [...] this encounter Plan of Treatment Not on file documented as of this encounter Procedures Procedure Name Priority Date/Time Associated Diagnosis Comments CBC WITH DIFFERENTIAL, B Routine 025 7:47 AM CDT Malignant Neoplasm Of Rectum (HCC) Secondary Malignant Neoplasm Liver (HCC) CARCINOEMBRYONIC AG (CEA), S Routine 12/09/2024 7:47 AM CDT Malignant Neoplasm Of Rectum (HCC) Secondary Malignant Neoplasm Liver (HCC) COMPREHENSIVE METABOLIC PANEL, S/P Routine 12/09/2024 7:47 AM CDT Malignant Neoplasm Of Rectum (HCC) Secondary Malignant Neoplasm Liver (HCC) documented in this encounter Results * (ABNORMAL) CBC with Differential, Blood (12/09/2024 7:47 AM CDT) Hemoglobin 11.2(L) 11.6 - 15.0 g/dL 12/09/2024 8:15 AM CDT DTL Hematocrit 34.7(L) 35.5 - 44.9 % 12/09/2024 8:15 AM CDT DTL Erythrocytes 3.60(L) 3.92 - 5.13 x10(12)/L 12/09/2024 8:15 AM CDT DTL MCV 96.4 78.2 - 97.9 fL 12/09/2024 8:15 AM CDT DTL RBC Distrib Width 17.8(H) 12.2 - 16.1 % 12/09/2024 8:15 AM CDT DTL Platelet Count 89(L) 157 - 371 x10(9)/L 12/09/2024 8:15 AM CDT DTL Leukocytes 14.5(H) 3.4 - 9.6 x10(9)/L 12/09/2024 8:57 AM CDT DTL Comment:Results confirmed by smear. Neutrophils 10.90(H) 1.56 - 6.45 x10(9)/L 12/09/2024 8:57 AM CDT [facility] Comment:Rechecked Lymphocytes 1.16 0.95 - 3.07 x10(9)/L 12/09/2024 8:57 AM CDT DTL Monocytes 2.09(H) 0.26 - 0.81 x10(9)/L 12/09/2024 8:57 AM CDT DTL Eosinophils 0.29 0.03 - 0.48 x10(9)/L 12/09/2024 8:57 AM CDT DTL Basophils 0.06 0.01 - 0.08 x10(9)/L 12/09/2024 8:57 AM CDT DTL Blood (Blood, Venous) 12/09/2024 7:47 AM CDT 12/09/2024 7:59 AM CDT us Sabina Kaila M.D. LAB BLOOD ADD-ON Final Result [facility] [address] [place] [address], [place] DTL [facility][note 3] [address] [place] [address] [facility] [address] [place] [address] * (ABNORMAL) Comprehensive Metabolic Panel (12/09/2024 7:47 AM CDT) [facility] Potassium, S 3.7 3.6 - 5.2 mmol/L 12/09/2024 8:53 AM CDT DTL Sodium, S 139 135 - 145 mmol/L 12/09/2024 8:53 AM CDT DTL Chloride, S 105 98 - 107 mmol/L 12/09/2024 8:53 AM CDT DTL Bicarbonate, S 23 22 - 29 mmol/L 12/09/2024 8:53 AM CDT DTL Anion Gap 11 7 - 15 12/09/2024 8:53 AM CDT DTL BUN (Blood Urea Nitrogen), S 8 6 - 21 mg/dL 12/09/2024 8:53 AM CDT DTL Creatinine 0.75 0.59 - 1.04 mg/dL 12/09/2024 8:53 AM CDT DTL Estimated GFR (eGFR) 82 >=60 mL/min/BS A 12/09/2024 8:53 AM CDT DTL Comment: Estimated GFR calculated using the 2020 CKD_EPI creatinine equation. Calcium, Total, S 9.0 8.8 - 10.2 mg/dL 12/09/2024 8:53 AM CDT DTL Glucose, S 83 70 - 140 mg/dL 12/09/2024 8:53 AM CDT DTL Protein, Total, S 5.8(L) 6.3 - 7.9 g/dL 12/09/2024 8:53 AM CDT DTL Albumin, S 3.5 3.5 - 5.0 g/dL 12/09/2024 8:53 AM CDT DTL Aspartate Aminotransferase (AST), S 20 8 - 43 U/L 12/09/2024 8:53 AM CDT DTL Alkaline Phosphatase, S 167(H) 35 - 104 U/L 12/09/2024 8:53 AM CDT DTL Alanine Aminotransferase (ALT), S 18 7 - 45 U/L 12/09/2024 8:53 AM CDT DTL Bilirubin, Total, S 0.4 0.0 - 1.2 mg/dL 12/09/2024 8:53 AM CDT DTL Blood (Blood, Venous) 12/09/2024 7:47 AM CDT 12/09/2024 7:57 AM CDT Sabina Bright M.D. LAB BLOOD ADD-ON Final Result Performing Organization Address City/[facility]/ZIP Co de Phone Number [facility] [address] [place] [address], [facility] [address] [place] [address] * (ABNORMAL) CEA (Carcinoembryonic Antigen) (12/09/2024 7:47 AM CDT) Pathologist [facility] Carcinoembryonic Ag (CEA), S 71.5(H) ng/mL 12/09/2024 11:46 AM CDT [facility] Comment: ----REFERENCE VALUE---- <=3.0 (Non-smokers) Some smokers may have elevated CEA, usually <5.0. ----ADDITIONAL INFORMATION---- The testing method is an immunoenzymatic assay manufactured by [employer] and performed on the [employer] DxI 800. Values obtained with different assay methods or kits may be different and cannot be used interchangeably. Test results cannot be interpreted as absolute evidence for the presence or absence of malignant disease. Blood (Blood, Venous) 12/09/2024 7:47 AM CDT 12/09/2024 10:52 AM CDT Sabina Bright M.D. LAB BLOOD ADD-ON Final Result Performing Organization Address City/[facility]/ZIP Co de Phone Number [facility] [address] [place] [address] [facility] [address] [place] [address] documented in this encounter Visit Diagnoses Diagnosis Hypertension Essential Primary- Primary Malignant Neoplasm Of Rectum (HCC) Secondary Malignant Neoplasm Liver (HCC) documented in this encounter Administered Medications Inactive Administered Medications - up to 3 most recent administrations Medication Order MAR Action Action Date Dose Rate Site heparin flush 500 Units 500 Units, intra-catheter, As needed, line care, Starting on Sat12/09/24 at 0733, When IVAD accessed and not infusing: When [...] to each port/lumen.Indications:Malignan t Neoplasm Of Rectum (HCC),Secondary Malignant Neoplasm Liver (HCC),Hypertension Essential Primary Given 12/09/2024 7:51 AM CDT 500 Units sodium chloride 0.9 % injection 20-40 mL 20-40 mL, intra-catheter, As needed, line care, Starting on Sat12/09/24 at 0733, When IVAD accessed and infusing: Flush prior to blood sampling, post blood transfusion or post blood sampling. 20 mL to each port/lumen.Indications:Malignan t Neoplasm Of Rectum (HCC),Secondary Malignant Neoplasm Liver (HCC),Hypertension Essential Primary Given 12/09/2024 7:50 AM CDT 40 mL documented in this encounter Care Teams Habilitation Assistant Relationship Specialty Start Date End Date Elsewhere, Pcp PCP - General Internal Medicine 09/26/21 documented as of this encounter
--- OUTSIDE RECORDS SUMMARY | 2024-12-09 08:25 | XMS_ITS | Encounter Summary ---
Author Organization [facility] Address [address] [place] [address] Care Team Providers Care Roentgenology Teacher Name Role Phone Elsewhere, Pcp Primary Care Provider Unavailabl e Reason for Referral * MRI/CAT/PET Scan (Routine) - Closed Specialty Diagnoses / Procedures Referred By Contbj t Referred To Contact Radiology Diagnoses Malignant Neoplasm Of Rectum (HCC) Secondary Malignant Neoplasm Liver (HCC) Procedures CT Abdomen Pelvis with IV Contrast Sabina Bright M.D. [address] [place] [address] Phone: tel: fax: [facility] Referral ID Status Reason Start Date Expiration Date Visits Re quested Visits Authorized [id number] Closed 09/03/2024 12/04/2025 1 1 * MRI/CAT/PET Scan (Routine) - Closed Specialty Diagnoses / Procedures Referred By Contbj t Referred To Contact Radiology Diagnoses Malignant Neoplasm Of Rectum (HCC) Secondary Malignant Neoplasm Liver (HCC) Procedures CT Chest with IV Contrast Sabina Bright M.D. [address] [place] [address] Phone: tel: fax: [facility] Referral ID Status Reason Start Date Expiration Date Visits Re quested Visits Authorized [id number] Closed 09/03/2024 12/04/2025 1 1 Reason for Visit * MRI/CAT/PET Scan (Routine) - Closed Specialty Diagnoses / Procedures Referred By Tammy stone Referred To Contact Radiology Diagnoses Malignant Neoplasm Of Rectum (HCC) Secondary Malignant Neoplasm Liver (HCC) Procedures CT Abdomen Pelvis with IV Contrast Sabina Bright M.D. [address] [place] [address] Phone: tel: fax: [facility] Referral ID Status Reason Start Date Expiration Date Visits Re quested Visits Authorized [id number] Closed 09/03/2024 12/04/2025 1 1 Encounter Details Date Type Department Care Team (Latest Contact Info) Description 12/09/2024 8:25 AM CDT - 12/09/2024 11:59 PM CDT Hospital Encounter Department of Radiology, [facility], in [place], [place] [address] [place] [address] Sabina Bright M.D. [address] [place] [address] Malignant Neoplasm Of Rectum (HCC); Secondary Malignant Neoplasm Liver (HCC) Discharge Disposition: Home or Self Care 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 Tobacco Use Types Packs/Day Years Used Date Smoking Tobacco: Never Passive Smoke Exposure: Never Smokeless Tobacco: Never Alcohol Use Standard Drinks/Week Comments Yes 1 (1 standard drink = 0.6 oz pur e alcohol) [facility] Utilities Answer Date Recorded In the past 12 months has [facility] [employer], oil, or water [employer] threatened to shut off services in your [...] your living situation today? I have a [facility] place to live 12/10/2023 Education Answer [...] 1 capsule by mouth daily. 02/09/2020 ondansetron (Zofran) 8 mg tablet Take 8 mg by mouth every 8 (eight) hours as needed for nausea or vomiting. polyethylene glycol (MIRALAX) 17 gram powder packet Take 17 g by mouth daily as needed. potassium chloride (K-TAB) 20 mEq CR tablet Take 2 tablets by mouth daily. 2 tablets on Saturday, Saturday, & Saturday. 3 tablets on Saturday, Saturday, Saturday, & . 01/23/2023 prochlorperazine (Compazine) 10 mg tablet Take 10 mg by mouth every 6 (six) hours as needed for nausea or vomiting. sertraline (ZOLOFT) 50 mg tablet Take 50 mg by mouth daily. 09/02/2023 simvastatin (ZOCOR) 20 mg tablet Take 1 tablet by mouth daily. 07/10/2017 documented as of this encounter Plan of Treatment Not on file documented as of this encounter Procedures Procedure Name Priority Date/Time Associated Diagnosis Comments CT ABDOMEN PELVIS WITH IV CONTRAST RAD - Routine (most inpatients and all outpatients) 12/09/2024 9:48 AM CDT Malignant Neoplasm Of Rectum (HCC) Secondary Malignant Neoplasm Liver (HCC) CT CHEST WITH IV CONTRAST RAD - Routine (most inpatients and all outpatients) 12/09/2024 9:48 AM CDT Malignant Neoplasm Of Rectum (HCC) Secondary Malignant Neoplasm Liver (HCC) documented in this encounter Results * CT Abdomen Pelvis with IV Contrast (12/09/2024 9:48 AM CDT) Anatomical Region Laterality Modality Abdomen, Pelvis, Abdominal R ST LOS, Abdominal ARZ LOS, Abdominal FLA LOS N/A Computed Tomograp hy, Computed Tomography 12/09/2024 9:46 AM CDT Impressions 12/09/2024 10:13 AM CDT 1. Mildly enlarging hepatic metastases with a new small hepatic metastasis. 2. Worsening small ascites. Soft tissue nodularity upon the left adnexal region is new, concerning for peritoneal metastasis. 3. Mildly enlarging gastrohepatic lymph node. Adjacent near soft tissue attenuation around celiac trunk has also increased in size and density compared to priors, suspicious. 4. New long segment diffuse wall thickening in the distal ileum could be infectious or inflammatory. Narrative 12/09/2024 10:13 AM CDT EXAM: CT ABDOMEN PELVIS WITH IV CONTRAST COMPARISON: 06/02/2024 and 09/02/2024 FINDINGS: Redemonstration of bilobar hepatic metastases which appear slightly larger compared to prior exam. For reference, hepatic dome metastasis measuring 2.6 x 2.5 cm (series 1 image 15), previously measured 2.1 x 1.6 cm. Lateral left hepatic lobe metastasis measures 2.2 x 2.1 cm (series 1 image 22), previously measuring 1.6 x 1.2 cm. There is a new subcentimeter hypoattenuating lesion at inferior hepatic tip (series 1 image 51) measuring about 0.8 x 0.7 cm. Enlarging gastrohepatic lymph node measuring about 1.1 x 0.8 cm (series 1 image 28), previously 0.9 x 0.7 cm. Worsening small volume ascites. Some soft tissue nodularity in the left adnexal region measuring about 2 x 1.3 cm (series 1 image 111). The right adnexa is also slightly more prominent compared to prior exam. Near soft tissue attenuation at the upper abdomen at the level of celiac artery has slightly enlarged/more conspicuous compared to 09/02/2024 (series 1 image 33 and series 5 image 50). Unchanged rectal wall thickening. Diffuse wall thickening seen in the distal ileum the right lower quadrant (series 1 image 75, new since prior exam. Mild splenomegaly. Procedure Note Waleska Alegre M.D. - 12/09/2024 EXAM: CT ABDOMEN PELVIS WITH IV CONTRAST COMPARISON: 06/02/2024 and 09/02/2024 FINDINGS: Redemonstration of bilobar hepatic metastases which appear slightly largercompared to prior exam. For reference, hepatic dome metastasis measuring 2.6 x 2.5 cm (series 1image 15), previously measured 2.1 x 1.6 cm. Lateral left hepatic lobe metastasis measures 2.2 x 2.1 cm (series 1 image22), previously measuring 1.6 x 1.2 cm. There is a new subcentimeter hypoattenuating lesion at inferior hepatictip (series 1 image 51) measuring about 0.8 x 0.7 cm. Enlarging gastrohepatic lymph node measuring about 1.1 x 0.8 cm (series 1image 28), previously 0.9 x 0.7 cm. Worsening small volume ascites. Some soft tissue nodularity in the leftadnexal region measuring about 2 x 1.3 cm (series 1 image 111). The rightadnexa is also slightly more prominent compared to prior exam. Near soft tissue attenuation at the upper abdomen at the level of celiacartery has slightly enlarged/more conspicuous compared to 09/02/2024(series 1 image 33 and series 5 image 50). Unchanged rectal wall thickening. Diffuse wall thickening seen in the distal ileum the right lower quadrant(series 1 image 75, new since prior exam. Mild splenomegaly. IMPRESSION: 1. Mildly enlarging hepatic metastases with a new small hepaticmetastasis. 2. Worsening small ascites. Soft tissue nodularity upon the left adnexalregion is new, concerning for peritoneal metastasis. 3. Mildly enlarging gastrohepatic lymph node. Adjacent near soft tissueattenuation around celiac trunk has also increased in size and densitycompared to priors, suspicious. 4. New long segment diffuse wall thickening in the distal ileum could beinfectious or inflammatory. us Sabina Bright M.D. Shae CT PROCEDURES Final Result * CT Chest with IV Contrast (12/09/2024 9:48 AM CDT) Anatomical Region Laterality Modality Chest, Thoracic RST LOS, Tho racic ARZ LOS, Thoracic ARZ LOS, Thoracic FLA LOS N/A Computed Tomography, Compute d Tomography 12/09/2024 9:41 AM CDT Impressions 12/09/2024 12:34 PM CDT Stable chest CT exam in the previously decreasing 4 mm right upper lobe nodule. Narrative 12/09/2024 12:34 PM CDT EXAM: CT CHEST WITH IV CONTRAST COMPARISON: Chest CT 09/02/2024. FINDINGS: Stable 4 mm right upper lobe solid nodule (3/191), which measured 6 mm on 06/02/2024. Few stable sub-3 mm pulmonary nodules. Calcified pulmonary granulomas. Slight biapical scarring. No enlarged thoracic lymph nodes. Right IJ Port-A-Cath terminates near the superior cavoatrial junction. Atherosclerotic arterial calcification, including moderate coronary. Hypertrophic degenerative changes spine. Procedure Note Denia Becker M.D. - 12/09/2024 EXAM: CT CHEST WITH IV CONTRAST COMPARISON: Chest CT 09/02/2024. FINDINGS: Stable 4 mm right upper lobe solid nodule (3/191), which measured 6 mm on06/02/2024. Few stable sub-3 mm pulmonary nodules. Calcified pulmonarygranulomas. Slight biapical scarring. No enlarged thoracic lymph nodes. Right IJ Port-A-Cath terminates near the superior cavoatrial junction.Atherosclerotic arterial calcification, including moderate coronary. Hypertrophic degenerative changes spine. IMPRESSION: Stable chest CT exam in the previously decreasing 4 mm right upper lobenodule. Sabina Bright M.D. IMG CT PROCEDURES Final Result documented in this encounter Visit Diagnoses Diagnosis Malignant Neoplasm Of Rectum (HCC) Secondary Malignant Neoplasm Liver (HCC) documented in this encounter Administered Medications Inactive Administered Medications - up to 3 most recent administrations Medication Order MAR Action Action Date Dose Rate Site heparin flush 500-1,000 Units 500-1,000 Units, intra-catheter, During hospitalization, line care, Prior to discharge, Starting on Sat12/09/24 at 0904, For 1 dose, Implanted Vascular Access Device (IVAD) Venous Non-Valved: flush 5 mL (500 units) per port/lumen following saline flush prior to discharge. Given 12/09/2024 9:43 AM CDT 500 Units iohexoL 300 mg iodine/mL solution 1-200 mL (Omnipaque) 1-200 mL, intravenous, Once in imaging, contrast, Starting on Sat12/09/24 at 0903, For 1 dose, Imaging Protocol Orders, Dose per Radiant Medication Guidelines Given 12/09/2024 9:31 AM CDT 140 mL sodium chloride (PF) 0.9 % injection 1-100 mL 1-100 mL, intravenous, Once, On Sat12/09/24 at 0930, For 1 dose, Imaging Protocol Orders, Dose per Radiant Medication Guidelines Given 12/09/2024 9:31 AM CDT 50 mL sodium chloride 0.9 % injection 10-20 mL 10-20 mL, intravenous, As needed, line care, Implanted Vascular Access Device (IVAD) Venous Non-Valved, Starting on Sat12/09/24 at 0904, Prior to and following infusion and between multiple consecutive infusions, flush 10 mL to each port/lumen. Given 12/09/2024 9:43 AM CDT 10 mL Given 12/09/2024 9:05 AM CDT 10 mL documented in this encounter Care Teams Roentgenology Teacher Relationship Specialty Start Date End Date Elsewhere, Pcp PCP - General Internal Medicine 09/26/21 documented as of this encounter
--- OUTSIDE RECORDS SUMMARY | 2024-12-09 15:20 | XMS_ITS | Encounter Summary ---
Author Organization [facility] Address [address] [place] [id number] Care Team Providers Care Valet Service Attendant Name Role Phone Elsewhere, Pcp Primary Care Provider Unavailabl e Reason for Visit * Outpatient (Routine) - Closed Specialty Diagnoses / Procedures Referred By Tammy stone Referred To Contact Oncology Diagnoses Malignant Neoplasm Of Rectum (HCC) Secondary Malignant Neoplasm Liver (HCC) Sabina Bright M.D. [address] [place] [phone] Phone: tel: fax: [facility] Referral ID Status Reason Start Date Expiration Date Visits Re quested Visits Authorized [id number] Closed 09/03/2024 03/05/2026 1 1 Encounter Details Date Type Department Care Team (Late st Contact Info) Description 12/09/2024 3:20 PM CDT Office Visit Department of Oncology in [place], [place] [address] [place] [phone] Ginette Cervantes APRN, C.N.P., M.S. [address] [place] [phone] Secondary Malignant Neoplasm Liver (HCC) (Primary Dx); Malignant Neoplasm Of Rectum (HCC) 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 Tobacco Use Types Packs/Day Years Used Date Smoking Tobacco: Never Passive Smoke Exposure: Never Smokeless Tobacco: Never Alcohol Use Standard Drinks/Week Comments Yes 1 (1 standard drink = 0.6 oz pur e alcohol) [facility] Utilities Answer Date Recorded In the past 12 months has th e electric, gas, oil, or water company threatened to shut off services in your [...] your living situation today? I have a [facility] place to live 12/10/2023 Education Answer [...] Sign Reading Time Taken Comments Blood Pressure 133/74 12/09/2024 3:05 PM CDT Pulse 71 12/09/2024 3:05 PM CDT Temperature 36.5 C (97.7 F) 12/09/2024 3:05 PM CDT Respiratory Rate 15 12/09/2024 3:05 PM CDT Oxygen Saturation 99% 12/09/2024 3:05 PM CDT Inhaled Oxygen Concentration - - Weight 72 kg (158 lb 11.7 oz) 12/09/2024 3:05 PM CDT Height - - Body Mass Index 24.91 09/03/2024 11:04 AM CDT documented in this encounter Progress Notes * Ginette Cervantes APRN, C.N.P., M.S. - 12/09/2024 3:20 PM CDT Images from the original note were not included. Cancer Staging Malignant Neoplasm Of Rectum (HCC) Staging form: Colon And Rectum, AJCC 8th Edition - Clinical stage from 11/19/2022: Stage JUAN (cT4b, cN2, cM1a) Current Therapy: FOLFIRI bevacizumab Current Disease Status: Progressing ECOG Performance Status: 1 Intent of Therapy: Control Intent to Change Therapy: Yes-changing regimen due to progression SUBJECTIVE PRIMARY CARE PHYSICIAN ELSEWHERE, PCP REQUESTING PROVIDER Sabina Bright M.D. [address] [place] [phone] LOCAL ONCOLOGIST No care contact center team lead to display PRIMARY [place] ONCOLOGIST Ileana Menchaca M.D. Johnathan José M.D. Kamboj, Jasmine, M.D. CHIEF COMPLAINT/REASON FOR CONSULT Apolonia William is a 79 y.o. female who presents for evaluation of metastatic rectal cancer HISTORY OF PRESENT ILLNESS Ms. William is a 79 y.o. female with the following oncologic history: Oncology History Overview Note DIAGNOSIS: Stage IV ([id number]) distal rectal adenocarcinoma, mets to liver (baseline CEA 32.6) PRIMARY ALLEN ONCOLOGIST: Dr. José PRIMARY LOCAL ONCOLOGIST: Dr. Mc ([place]) MOLECULAR PROFILE: pMMR Tempus xT (11/19/22): KRAS [...] sitting on. Her PCP recommended fiber. Her it applications developer did a pelvis exam which was normal, [...] rectum neoplasm. Immunohistochemical stains were performed at [facility] (block A1). The neoplastic cells are positive for CDX2 and CK7 while negative for CK20. Comparison with prior rectal tumor biopsy ([id number]) was performed, and the present neoplasm displays similar morphological features. These results support the above interpretation. 12/11/2022 Tumor Board Plan established at the Colorectal Multidisciplinary Tumor Board Liver MRI with Eovist Contrast and Liver Surgery Referral, Port 2. Start Chemo 12/25/2022 - 12/25/2022 Chemotherapy FOLFIRI + Bevacizumab ( Fluorouracil / Leucovorin / Irinotecan / Bevacizumab ) Start Date: 04/26/[address] CAP showed interval [...] Recommend shift from 5-FU/Pamela maintenance to FOLFIRI/Pamela. 12/09/[address] cap: IMPRESSION: 1. Mildly enlarging hepatic metastases with [...] distal ileum could be infectious or inflammatory. IMPRESSION: Stable chest CT exam in the previously decreasing 4 mm right upper lobe nodule. Given progression of disease, recommendations to switch to Lonsurf and bevacizumab for 3 months then reassess INTERVAL HISTORY: Ms. William presents for reevaluation. Since last seen, Ms. William has been on of FOLFOXIRI and bevacizumab locally. Overall, she has had a difficult time tolerating therapy. She tells me she has had worsening diarrhea particularly this last cycle accompanied by abdominal cramping. She has been using Imodium at least 2 a day. She has also struggled with mucositis. She has no abdominal or pelvic pain other than cramping associated with diarrhea. No chest pain shortness of breath peripheral edema. Shehas had cold sensitivity neuropathy for few days after treatment. Her appetite is low but she has been able to maintain her weight but she does have a change in her taste sensation. No significant shana sea vomiting. Overall she is much more fatigued. No fevers or drenching night sweats. Alopecia. REVIEW OF SYSTEMS Pertinent items are noted in HPI; all other review of systems was negative. OBJECTIVE VITAL SIGNS Vitals: 12/09/24 1505 BP: 133/74 BP Location: Left arm Patient Position: Sitting Cuff Size: Regular Pulse: 71 Resp: 15 Temp: 36.5 ??C TempSrc: Tympanic SpO2: 99% Weight: 72 kg PHYSICAL EXAMINATION General: Well appearing 79 y.o. who is in no apparent distress. Appears to be at ECOG performance status 1 Skin: Non-jaundiced. No rashes. Eyes: No scleral icterus. Alopecia Extremities: No edema. Neuro: Alert and oriented x 3. Calm, interactive and appropriate. No focal neuro deficit. Reports: Labs and imaging have been reviewed. DIAGNOSTICS I reviewed the imaging studies and agree with the interpretation as recorded. I reviewed the pertinent laboratory and diagnostic data. ASSESSMENT / PLAN #1 Metastatic rectal cancer I have reviewed all above in depth with Ms. William and her . Unfortunately, based on imaging that was done today she does have interval disease progression in her liver and increasing ascites consistent with progressive disease in the peritoneum. Her CEA is also rising. Additionally, she does not appear that she is tolerating her FOLFIRINOX and bevacizumab well. Per that note outlined on her last visit here by Dr. Turner, then excellent if therapy would be to switch to Lonsurf and bevacizumab. I did go through schedule, side effect and dosing briefly with her and her and they understand. They will pursue this therapy locally and contact us when they initiate therapy so we can make arrangements for her to return approximately 3 months later withrepeat imaging, blood work and a return appointment with Dr. Turner for repeat assessment. Ms. William is comfortable with this plan. I did suggest that she start Peroxyl rinses to help with her mucositis. There is any other concerns that we can be helpful with she has knows not to hesitate to contact us. PATIENT EDUCATION Ready to learn, no apparent learning barriers were identified; learning preferences include listening. Explained diagnosis and treatment plan; patient expressed understanding of the content. ADMINISTRATIVE BILLING Total time spent in counseling 40 mins. documented in this encounter Plan of Treatment Not on file documented as of this encounter Visit Diagnoses Diagnosis Secondary Malignant Neoplasm Liver (HCC)- Primary Malignant Neoplasm Of Rectum (HCC) documented in this encounter Care Teams Valet Service Attendant Relationship Specialty Start Date End Date Elsewhere, Pcp PCP - General Internal Medicine 09/26/21 documented as of this encounter
--- OUTSIDE RECORDS SUMMARY | 2024-12-11 12:30 | XMS_ITS | Encounter Summary ---
Author Organization [facility] Address [address] [place] [address] Care Team Providers Care Speed Runner Name Role Phone Elsewhere, Pcp Primary Care Provider Unavailabl e Reason for Referral * Outpatient (Routine) - Authorized Specialty Diagnoses / Procedures Referred By Tammy stone Referred To Contact Ophthalmology Elsy Barry M.D. [address] [place] [address] Phone: tel: fax: [facility] Referral ID Status Reason Start Date Expiration Date V isits Requested Visits Authorized [id number] Authorized 12/11/2024 06/12/2026 1 1 Scheduling Instructions Before 10am Reason for Visit * Outpatient (Routine) - Closed Specialty Diagnoses / Procedures Referred By Tammy stone Referred To Contact Ophthalmology Star Mcintosh M.D. [address] [place] [address] Phone: tel: fax: Elsy Barry M.D. [address] [place] [address] Phone: tel: fax: Referral ID Status Reason Start Date Expiration Date Visits Re quested Visits Authorized [id number] Closed 11/25/2024 05/27/2026 1 1 Encounter Details Date Type Department Care Team (Latest Contact Info) Description 12/11/2024 12:30 PM CDT Office Visit Department of Ophthalmology in [place], [place] [address] [place] [address] Elsy Barry M.D. [address] [place] [address] Tear Horseshoe Without Retinal Detachment Right (Primary Dx) 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 Tobacco Use Types Packs/Day Years Used Date Smoking Tobacco: Never Passive Smoke Exposure: Never Smokeless Tobacco: Never Alcohol Use Standard Drinks/Week Comments Yes 1 (1 standard drink = 0.6 oz pur e alcohol) [facility] Utilities Answer Date Recorded In the past 12 months has e electric, gas, oil, or water company [...] have a [facility] place to live 12/10/2023 Education Answer Date [...] as of this encounter Progress Notes * Elsy Barry M.D. - 12/11/2024 12:30 PM CDT CHIEF COMPLAINT Referral for HST Interval history: She is concerned about a black rim around the iris that she noticed since the laser. No new floaters, flashes. No missing parts of her vision. PMH: HTN, HLD. No history of diabetes mellitus. Rectal adenocarcinoma with liver metastases on chemotherapy, started new regimen 4 weeks ago. ASSESSMENT: # Retinal Horseshoe Tear, right eye Initially presented on 11/25/24 with horseshoe tear at 10:30 noted on exam minimal with subretinal fluid. No other tears or holes noted on 360 fundus exam with scleral depression. Laser barricade performed in clinic with Dr. Mcintosh. She is doing well with no new symptoms, floaters, flashes, missing parts of vision. Recheck today demonstrates good laser barricade. RTC in 3-4 weeks for final laser recheck with scleral depressed exam Retinal detachment symptoms: We discussed symptoms related to a new onset of a retinal detachment. These include the new onset of flashing lights (photopsia), new onset of significant floaters (not just 1 or 2 new floaters), or a dark shadow, curtain, or bubble that blocks vision from a certain portion of the visual field. Usually this dark shadow, bubble, or curtain will be progressive, and doesnot improve over time. Such symptoms should prompt a call to the clinic for prompt evaluation. Patient counseling was performed. All questions were answered and the patient voiced agreement withthe plan. Return precautions discussed. Seen with Dr. Veronica Barry M.D. PGY-2 Ophthalmology Resident documented in this encounter Plan of Treatment Scheduled Referrals Name Type Priority Associated Diagnoses Order Schedule Ophthalmology office visit (clinic): Self; General Outpatient Referral Routine Expected: 01/10/2025, Expires: 03/12/2026 documented as of this encounter Visit Diagnoses Diagnosis Tear Horseshoe Without Retinal Detachment Right- Primary documented in this encounter Care Teams Speed Runner Relationship Specialty Start Date End Date Elsewhere, Pcp PCP - General Internal Medicine 09/26/21 documented as of this encounter
--- OUTSIDE RECORDS SUMMARY | 2025-01-19 14:06 | XMS_ITS | Encounter Summary ---
Author Organization [facility] Address [address] [place] [address] Care Team Providers Care Diesel Locomotive Firer Name Role Phone Elsewhere, Pcp Primary Care Provider Unavailabl e Encounter Details Date Type Department Care Team (Latest Contact Info) Description 11/24/2024 Clinical Communication Department of Ophthalmology in [place], [place] [address] [place] [address] Provider, Unknown 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 Tobacco Use Types Packs/Day Years Used Date Smoking Tobacco: Never Passive Smoke Exposure: Never Smokeless Tobacco: Never Alcohol Use Standard Drinks/Week Comments Yes 1 (1 standard drink = 0.6 oz pur e alcohol) [facility] Utilities Answer Date Recorded In the past 12 months has [facility] electric, gas, oil, or water [employer] threatened to shut off services in your [...] your living situation today? I have a [facility] place to live 12/10/2023 Education Answer [...] on filedocumented in this encounter Care Teams Diesel Locomotive Firer Relationship Specialty Start Date End Date Elsewhere, Pcp PCP - General Internal Medicine 09/26/21 documented as of this encounter
--- OUTSIDE RECORDS SUMMARY | 2025-01-19 14:06 | XMS_ITS | Clinical Summary ---
Author Organization [facility] Address [address] [place] [address] Care Team Providers Care Apn Name Role Phone Elsewhere, Pcp Primary Care Provider Unavailabl e Source Comments Patient records contain information from all sites at [facility]. For routine questions regarding patient records, call [phone] during business hours, M-F 8:00 AM - 5:00 PM Central Time. Record requests for emergency care only can be directed to [phone] at any time.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 on 02/19/2024 Obesity Unspecified 12/06/2022 Mass Hepatic 12/06/2022 Polyneuropathy 06/27/2021 Paresthesia 09/28/2020 Encounters Date Type Department Care Team Description 12/11/2024 12:30 PM CDT Office Visit Department of Ophthalmology in [address] [address] Elsy Barry M.D. Tear Horseshoe Without Retinal Detachment Right (Primary Dx) 12/09/2024 3:20 PM CDT Office Visit Department of Oncology in [address] [address] Ginette Cervantes, Adelina OCHOA., M.S. Secondary Malignant Neoplasm Liver (HCC) (Primary Dx); Malignant Neoplasm Of Rectum (HCC) 12/09/2024 8:25 AM CDT - 12/09/2024 11:59 PM CDT Hospital Encounter Department of Radiology, [facility], in [address] [address] Sabina Bright M.D. Malignant Neoplasm Of Rectum (HCC); Secondary Malignant Neoplasm Liver (HCC) Discharge Disposition: Home or Self Care 12/09/2024 8:00 AM CDT Lab Department of Infusion Therapy in [address] [address] Sabina Bright M.D. Hypertension Essential Primary (Primary Dx); Malignant Neoplasm Of Rectum (HCC); Secondary Malignant Neoplasm Liver (HCC) 12/04/2024 12:15 PM CDT Clinical Communication Virtual Review in [place], [place] [address] [place] [address] Pre-visit Intake 11/25/2024 10:30 AM CDT Comprehensive Visit Department of Ophthalmology in [address] [address] Elsy Barry M.D. Tear Horseshoe Without Retinal Detachment Right (Primary Dx) 11/24/2024 Clinical Communication Department of Ophthalmology in [address] [address] Provider, Unknown from Last 3 Months Family History Medical [...] the money to buy more. Never true 01/10/20 25 Within the past 12 months, t he food you bought just didn't last and you didn't have money to get more. Never true 01/09/2025 PRAPARE - Transportation Answer Date Re corded In the past 12 months, has l ack of transportation kept you from medical appointments or from getting medications? No 12/30 In the past 12 months, has l ack of transportation kept you from meetings, work, or from getting things needed for daily living? No 01/09/2025 [facility] Utilities Answer Date Recorded In the past 12 months has [facility] [employer], gas, oil, or water [employer] threatened to shut off services in your home? No 01/09/2025 Housing Stability Answer Date Recorded What is your living situation today? I have a [facility] place to live 01/09/2025 Education Answer Date Recorded What is the [...] 11.7 oz) 12/09/2024 3:05 PM CDT Height 170 cm (5' 6.93) 09/03/2024 11:04 AM CDT Body Mass Index 24.91 09/03/2024 11:04 AM CDT Plan of Treatment Health Maintenance Due Date Last Done Comments Hepatitis C Screening 1945 Office Visit for Blood Pressure Check / Re-check 1945 Hepatitis A Vaccines (1 of 2 - Risk 2-dose series) 1966 Zoster Vaccines (1 of 2) 1966 Hepatitis B Vaccines (1 of 3 - Risk 3-dose series) 2007 RSV vaccine - (32-36 weeks) or 50+ years (1 - 1-dose 75+ series) 2022 Depression Screening (Annual PHQ-2) 04/01/2024 COVID-19 Vaccine ( season) 2024 09/15/2024, 02/21/2024, 01/01/2023, Additional history exists Influenza Vaccine (#1) 2024 , 01/18/2023, 01/31/2022, Additional history exists Creatinine Level (Kidney Function Test) 12/09/2025 12/09/2024, 09/02/2024, 06/02/2024, Additional history exists Potassium Level 12/09/2025 12/09/2024, 0 06/2024, 06/02/2024, Additional history exists Sodium Level 12/09/2025 12/09/2024, 06/0 06/2024, 06/02/2024, Additional history exists DTaP,Tdap,and Td Vaccines (2 - Td or Tdap) 08/10/2030 08/10/2020 Pneumococcal vaccine (50+ years) Completed 08/14/2021, 01/30/2019 Fall Risk Screen (Annual) Completed 10/01/2024 HPV Vaccines Aged Out No longer eligi ble based on patient's age to complete this topic IPV Vaccines Aged Out No longer eligi ble based on patient's age to complete this topic Medical Devices Implanted Type Area Supply Chain Director Device Identifier Shelf Expiration Date Model / Serial / Lot Hardware E.G. Pins/Screws/R ods-Wrist Hardware e.g. pins/screws/clayton s Right: Wrist Description:Titanium plate Prt Cath Infus Mri Intrmd 8f - [id number] Implanted:Qty : 1 on 12/17/2022 by Alfie Merino M.D. at [facility] [employer] 05/29/2024 [id number] / / [id number] Procedures Procedure Name Priority Date/Time Associated Diagnosis [...] Liver (HCC) CBC WITH DIFFERENTIAL, B Routine 12/09/2024 7:47 AM CDT Malignant Neoplasm Of Rectum (HCC) Secondary Malignant Neoplasm Liver (HCC) COMPREHENSIVE METABOLIC PANEL, S/P Routine 12/09/2024 7:47 AM CDT Malignant Neoplasm Of Rectum (HCC) Secondary Malignant Neoplasm Liver (HCC) CARCINOEMBRYONIC AG (CEA), S Routine 12/09/2024 7:47 AM CDT Malignant Neoplasm Of Rectum (HCC) Secondary Malignant Neoplasm Liver (HCC) PROPHYLAXIS OF RETINAL DETACHMENT, LASER - OD - RIGHT EYE Routine 11/25/2024 5:04 PM CDT Tear Horseshoe Without Retinal Detachment Right from Last 3 Months Results * CT Abdomen Pelvis with IV [...] beinfectious or inflammatory. us Sabina Bright M.D. IMG CT PROCEDURES Final Result * CT Chest [...] mm right upper lobenodule. Sabina Bright M.D. [facility] CT PROCEDURES Final Result * (ABNORMAL) CBC with Differential, Blood (12/09/2024 [...] - 6.45 x10(9)/L 12/09/2024 8:57 AM CDT [facility] Comment:Rechecked Lymphocytes 1.16 0.95 - 3.07 x10(9)/L 12/09/2024 8:57 AM CDT DTL Monocytes 2.09(H) 0.26 - 0.81 x10(9)/L 12/09/2024 8:57 AM CDT DTL Eosinophils 0.29 0.03 - 0.48 x10(9)/L 12/09/2024 8:57 AM CDT DTL Basophils 0.06 0.01 - 0.08 x10(9)/L 12/09/2024 8:57 AM CDT DTL Blood (Blood, Venous) 12/09/2024 7:47 AM CDT 12/09/2024 7:59 AM CDT Sabina Bright M.D. LAB BLOOD ADD-ON Final Result [facility] [address] [place] [address], [place] [facility] [address] [place] [address] [facility] [address] [place] [address] * (ABNORMAL) CEA (Carcinoembryonic Antigen) (12/09/2024 7:47 AM CDT) Carcinoembryonic Ag (CEA), S 71.5(H) ng/mL 12/09/2024 11:46 AM CDT [facility] Comment: ----REFERENCE VALUE---- <=3.0 (Non-smokers) Some smokers may have elevated CEA, usually <5.0. ----ADDITIONAL INFORMATION---- The testing method is an immunoenzymatic assay manufactured by [employer] and performed on the [employer] DxI 800. Values obtained with different assay methods or kits may be different and cannot be used interchangeably. Test results cannot be interpreted as absolute evidence for the presence or absence of malignant disease. Blood (Blood, Venous) 12/09/2024 7:47 AM CDT 12/09/2024 10:52 AM CDT us Sabina Bright M.D. LAB BLOOD ADD-ON Final Result [facility] [address] [place] [address] [facility] [address] [place] [address] * (ABNORMAL) Comprehensive Metabolic Panel (12/09/2024 7:47 AM CDT) Potassium, S 3.7 3.6 - 5.2 mmol/L [...] Bright M.D. LAB [place] [address], [place] [address] * Prophylaxis of Retinal Detachment, Laser - OD - Right Eye (11/25/2024 5:04 PM CDT) Narrative OPHTHALMOLGY NON-IMAGING ORDERS - 11/25/2024 6:08 PM CDT Time Out Confirmed correct patient, procedure, site, and patient consented. Anesthesia Topical anesthesia was used. Pre/Post Procedure prep and meds used were Proparacaine 0.5% 1-10 drops. Laser Information The duration in seconds was 0.10. Laser power was 400.00 milliwatts. Total spots was 307. It was a barricade pattern. Post-op The patient tolerated the procedure well. There were no complications. The patient received written and verbal post procedure care education. Notes Laser by Dr. Negron us Star Mcintosh M.D. [facility] PROCEDURE S Edited Result - Final OPHTHALMOLGY NON-IMAGING ORDERS from Last 3 Months Insurance [facility] MEDICARE Care Teams Apn Relationship Specialty Start Date End Date Elsewhere, Pcp PCP - General Internal Medicine 09/26/21
--- OUTSIDE RECORDS SUMMARY | 2025-01-19 14:06 | XMS_ITS | Clinical Summary ---
Author Organization [facility] Address [address] , [address] [place] [address] Phone Care Team Providers Care Systems Mgr Name Role Phone System Maintenance Unavailable [phone] Conditions or Problems Problem Name Problem Code Onset Date Status Entry Date Provider Comment Standard Description Annotate Peripheral neuropathy 753877491 (SNOMED CT) 06/27 Active 06/27 Agnieszka LOPEZ-C Peripheral nerve disease Paresthesias 80237008 (SNOMED CT) 09/28 Active 09/28 Keanu Coronado MD Paresthesia Medications Medication Instructions Start Date Stop Date Generic Name NDC Provider DULOXETINE HCL 30 MG CPEP take 1 cap by mouth at bedtime 10/25 duloxetine 40958805868 Agnieszka LOPEZ-C DULOXETINE HCL 30 MG CPEP TAKE 1 CAPSULE BY MOUTH EVERYDAY AT BEDTIME *APPOINTMENT NEEDED* duloxetine 63412867369 Agnieszka LOPEZ-C MULTI-VITAMINS TABS multivitamin 47535153215 Agnieszka LOPEZ-C VITAMIN D3 10 MCG (400 UNIT) TABS cholecalciferol (vitamin d3) 25833084378 Agnieszka Chavez PA-C cyanocobalamin (vitamin B-12) unspecified unspecified cyanocobalamin (vitamin b-12) Agnieszka Chavez PA-C Fiber (psyllium husk-sugar) unspecified unspecified psyllium husk (with sugar) 70257464012 Agnieszka LOPEZ-C SURI ASPIRIN EC LOW DOSE 81 MG TBEC 1 tab daily aspirin 36662351378 Agnieszka Chavez JESSICA-C DULOXETINE HCL 30 MG CPEP take 1 cap by mouth at bedtime 10/25 duloxetine 37032495638 Agnieszka Chavez JESSICA-C METOPROLOL TARTRATE 50 MG TABS Take 1 tablet by mouth twice a day metoprolol tartrate 90195340332 Keanu Coronado MD OMEPRAZOLE 20 MG CPDR Take 1 capsule by mouth once a day as needed omeprazole 69690356426 Keanu Coronado MD SIMVASTATIN 20 MG TABS Take 1 tablet by mouth every night simvastatin 08216517934 Keanu Coronado MD OMEPRAZOLE 20 MG CPDR TAKE 1 CAPSULE BY MOUTH EVERY DAY NEEDED 10/09 OMEPRAZOLE 77054889331 Keanu Coronado MD SIMVASTATIN 20 MG TABS TAKE 1 TABLET BY MOUTH AT BEDTIME 06/27 SIMVASTATIN 19383379346 Keanu Coronado MD METOPROLOL TARTRATE 50 MG TABS TAKE 1 TABLET BY MOUTH TWICE A DAY 07/14 METOPROLOL TARTRATE 04898107174 Keanu Coronado MD Medications Administered No information available. Allergies, Adverse Reactions, Alerts Allergy Name Reaction Description Start Date Severity Statu s Provider ADHESIVE TAPE Moderate Active Hema Coronado MD Results Date Name Value Unit Range Flag Description Office Visit: PERIPHERAL WILBERT ROPATHY 09/28/20 12:18- 09/28/20 12:18 REFERRI... 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
--- OUTSIDE RECORDS SUMMARY | 2025-01-19 14:07 | XMS_ITS ---
Author Organization [facility] Address [address] [place] [address] Care Team Providers Care Service Assistant Name Role Phone Elsewhere, Pcp Primary Care Provider Unavailabl e Active Problems * This document contains information received from the source organization and may not represent a complete record from that organization. 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 on 02/19/2024 Obesity Unspecified 12/06/2022 Mass Hepatic 12/06/2022 Polyneuropathy 06/27/2021 Paresthesia 09/28/2020 Current Treatment and Therapy Plans Vascular Access Patency - Implanted Vascular Access Device (IVAD) Venous Non-Valved* Plan Start Date:09/02/2024 Linked Problems Malignant Neoplasm Of Rectum (HCC)Secondary Malignant Neoplasm Liver (HCC)Hypertension Essential Primary Treatment Medications No medications scheduled. Past Treatment and Therapy Plans Flushes/Hydration Plan [...]
[2025-01-19 14:09] VITALS: BP 144/80; PULSE 63; RESP 18; TEMP 36.6; O2SAT 100; BMI 25.1
--- NOTE | 2025-01-19 15:39 | ED.GENADULT ---
HPI - General Adult General Chief complaint: Abdominal Pain Stated complaint: Abdominal pain Time Seen by Provider: 01/19/25 14:27 History of Present Illness HPI narrative: pt went to [facility] for lab work. this week zoey has been hurting if she touches it . staff thought stomach looked bloated and she should be seen in ED. states it has been like that for a week. pt did have a little bit of BM this am. denies n/v. states eating and drinking ok . hx: metastatic rectal ca 79-year-old woman presenting to the emergency department with concern of abdominal distension and belly button pain. She has noticed this both for about a week after she leaned up against a counter edge. Had not had a prior tender belly button. 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 She has been on current oral chemotherapy regimen over the last month. History of thrombocytopenia and did have blood draw today with staff expressing concern of distended or bloated abdomen. Thinking about taking some ClearLax today. Over the last few days has had smaller bowel movements but still regular. Sounds like normal intake. Fever. Trauma. Related Data Home Medications ?Medication ?Instructions ?Recorded ?Confirmed aspirin 81 mg tablet,delayed 81 mg PO DAILY 01/01/22 01/26/25 release Held on 01/21/25. Instructions: Doctor's Order cholecalciferol (vitamin D3) 25 25 mcg PO QDAY 01/01/22 01/26/25 mcg (1,000 unit) capsule cyanocobalamin (vitamin B-12) 1,000 mcg PO DAILY 01/01/22 01/26/25 1,000 mcg tablet,extended release diphenhydramine 25 0.5 tab PO HS 01/01/22 01/26/25 mg-acetaminophen 500 mg tablet multivitamin 1 tab PO QDAY 01/01/22 01/26/25 polyethylene glycol 3350 17 4 g PO DAILY PRN 12/27/22 01/26/25 gram/dose oral powder (Miralax) ondansetron HCl 8 mg tablet 8 mg PO Q8H PRN 01/09/23 01/26/25 acetaminophen 500 mg tablet 500 mg PO Q6H PRN 12/06/23 01/26/25 (Tylenol Extra Strength) amoxicillin 500 mg tablet 2,000 mg PO ONCE 08/26/24 01/26/25 Previous Rx's ?Medication ?Instructions ?Recorded lidocaine HCl 2 % mucosal solution 1 applic mucous membrane QID PRN 03/26/23 (Lidocaine Viscous) mouth pain #100 mL prochlorperazine maleate 10 mg 10 mg PO Q6H PRN nausea/vomiting 05/22/24 tablet #30 tabs loperamide 2 mg capsule 2 - 4 mg (1 - 2 x 2 mg) PO Q4H PRN 08/26/24 loose stool #45 caps hydrochlorothiazide 12.5 mg tablet 12.5 mg PO QAM #90 tabs 09/15/24 metoprolol tartrate 50 mg tablet 50 mg PO BID #180 tabs 09/15/24 omeprazole 20 mg capsule,delayed 20 mg PO DAILY PRN reflux #90 caps 09/15/24 release sertraline 25 mg tablet 25 mg PO QDAY #90 tabs 09/15/24 simvastatin 20 mg tablet 20 mg PO HS #90 tabs 09/15/24 ondansetron HCl 4 mg tablet 4 mg PO Q8H #60 tabs 12/14/24 prochlorperazine maleate 5 mg 5 mg PO BID PRN nausea and 12/14/24 tablet (Compazine) vomiting #60 tabs trifluridine 20 mg-tipiracil 8.19 3 tab PO BID #60 tabs 12/14/24 mg tablet (Lonsurf) potassium chloride 20 mEq 20 meq PO .COMPLEX low potassium 01/12/25 tablet,extended release #240 tabs Allergies Allergy/AdvReac Type Severity Reaction Status Date / Time adhesive Allergy Severe Blister Verified 01/26/25 09:09 Review of Systems Status of ROS: Reports: 6 or more systems reviewed and unremarkable except as noted in History and below [facility] Medical History Chemotherapy-induced thrombocytopenia ?D69.59 - Other secondary thrombocytopenia (ICD-10) ?T45.1X5A - Adverse effect of antineoplastic and immunosuppressive drugs, initial encounter (ICD-10) Diarrhea ?R19.7 - Diarrhea, unspecified (ICD-10) Neutropenia ?D70.9 - Neutropenia, unspecified (ICD-10) History of colonic polyps ?Z86.010 - Personal history of colonic polyps (ICD-10) Closed fracture of distal radius and ulna (02/03/19) ?S52.509A - Unspecified fracture of the lower end of unspecified radius, initial encounter for closed fracture (ICD-10) ?S52.609A - Unspecified fracture of lower end of unspecified ulna, initial encounter for closed fracture (ICD-10) Surgical History History of surgery on right wrist (01/2019) ?Z98.890 - Other specified postprocedural states (ICD-10) Status post de Quervain's release surgery (09/2016) ?Z98.890 - Other specified postprocedural states (ICD-10) History of left knee surgery (12/2012) ?Z98.890 - Other specified postprocedural states (ICD-10) History of cholecystectomy (07/2015) ?Z90.49 - Acquired absence of other specified parts of digestive tract (ICD-10) Family History Father Heart disease High blood pressure High cholesterol 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 What is your current living situation?: I presently have a place to live Problems where you live: declined to answer In the past 12 months, utilities in danger of being shut off: no In past 12 months, lack of transportation kept you from medical appts, meetings, work, or getting things needed for daily living: no In the past 12 mos, have been you worried that your food would run out before you had money to buy more?: never true In the past 12 mos, the food you bought just didn't last and you didn't have money to buy more?: never true Smoking Status: Never smoker Second hand tobacco smoke exposure: No How often do you have a drink containing alcohol: monthly or less AUDIT-C Alcohol total score: 1 Non-prescribed substance use: denies use Are you now , , , , never or living with a partner: Social isolation score (0-1 are the most socially isolated patients): 1 How often does anyone, including family, friends and others, physically hurt you: never How often does anyone, including family, friends and others, insult or talk down to you: never How often does anyone, including family, friends and others, threaten you with harm: never How often does anyone, including family, friends and others, scream or curse at you: never Do you think of yourself as: straight/heterosexual Gender Identity: female Are you currently sexually active: No service: No Exam Narrative: Exam Narrative: Pleasant. NAD. Breathing easily. Skin is warm and dry. Abdomen does appear to be distended. Umbilicuremains her historical innie and is without inflammatory changes. Abdomen is soft. Not tender. May well have fluid wave here. Extremities are well perfused without edema. Const: Vital Signs, click to edit/add: Vital Signs - 24 hr 01/19/25 14:09 Temperature 97.9 F Pulse Rate [Pulse Oximeter] 63 Respiratory Rate 18 Blood Pressure [Ri ght Upper Arm] 144/80 H Pulse Oximetry 100 Oxygen Delivery Me thod Room Air Documenting provider has reviewed patient's vital signs: yes Course Vital Signs Vital signs: Initial Vital Signs Temperature 97.9 F 01/19/25 14:09 Temperature Source Temporal Artery Scan 01/19/25 14:09 Pulse Rate 63 01/19/25 14:09 Respiratory Rate 18 01/19/25 14:09 Blood Pressure 144/80 H 01/19/25 14:09 Blood Pressure Mean 101 01/19/25 14:09 Pulse Oximetry 100 01/19/25 14:09 Oxygen Delivery Method Room Air 01/19/25 14:09 Vital Signs Temperature 97.9 F 01/19/25 14:09 Pulse Rate 63 01/19/25 14:09 Respiratory Rate 18 01/19/25 14:09 Blood Pressure 144/80 H 01/19/25 14:09 Pulse Oximetry 100 01/19/25 14:09 Oxygen Delivery Method Room Air 01/19/25 14:09 Temperature 97.9 F 01/19/25 14:09 Pulse Rate 63 01/19/25 14:09 Respiratory Rate 18 01/19/25 14:09 Blood Pressure 144/80 H 01/19/25 14:09 Pulse Oximetry 100 01/19/25 14:09 Oxygen Delivery Method Room Air 01/19/25 14:09 Medications Administered Medications: Discontinued Medications Generic Name Dose Route Start Last Admin Trade Name Freq PRN Reason Stop Dose Admin Heparin Sodium (Porcine) 500 unit 01/19/25 17:11 01/19/25 17:54 Heparin 500 Unit/5 Ml Syringe IVF 01/19/25 17:12 500 unit ONCE ONE Administration Medical Decision Making MDM Narrative Medical decision making narrative: I would suspect that has likely developed some ascites here with metastatic disease. Does not seem obstructed. Will image to be certain. I would check labs as well though I do not think this represents SBP and is without pain or fever. INDICATION: Increasing abdominal distension/bloating. History of rectal cancer with metastasis. TECHNIQUE: CT abdomen and pelvis without contrast. COMPARISON: None. FINDINGS: Lower chest: Scattered atelectasis. Trace left pleural effusion. Small hiatal hernia. Liver: Multiple scattered hepatic metastases.. Gallbladder and bile ducts: No stones or inflammation. No biliary dilatation. Pancreas: Unremarkable. No mass or inflammation. Spleen: Normal in size. No masses. Adrenal glands: Normal in size. No nodules. Kidneys: Normal in size. Few tiny right cortical hypodensities, too small to characterize. No suspicious masses, stones, or hydronephrosis. GI tract: Mild colonic stool burden. Colonic diverticulosis without diverticulitis. No bowel obstruction. Appendix not definitely seen. Vasculature: Aortoiliac arterial calcifications. Abdominal aorta is normal in caliber. Lymph nodes: No lymphadenopathy. Peritoneum/Abdominal Wall: Tiny fat containing umbilical hernia with trace fluid. Small to moderate volume ascites. No free air. Anasarca. Pelvis: Unremarkable. No pelvic masses. Bones: Unremarkable for age. IMPRESSION: Small to moderate volume ascites. Multiple hepatic metastasis. Otherwise, no acute intra-abdominal/pelvic abnormality. Additional chronic findings as above. Please note that all CT scans at this facility use dose modulation, iterative reconstruction, and/or weight-based dosing when appropriate to reduce radiation dose to as low as reasonably achievable. Dictated by Yaya Rossi MD @ 01/19/2025 4:28:02 PM Attempted to reach [facility] for a consultation and to give information regarding this change in status, to establish next cares but apparently she a month ago transferred cares locally. Per my review though appears to be [facility] still. [facility] unable to consult and local provider not available at this time. Labs are generally reassuring. White count is not elevated. Absolute [place] 1.[place] [address]. Does not need therapeutic tap at this time nor do I think there is infectious process here. I think is safe to discharge to outpatient follow-up. See patient discharge plan for further discussion. I know you want to head out. I have not managed to get a hold of Oncology. I would still anticipate talking to them this evening. I will ask them to connect closely with you. Would also ask you to reach out to them as soon as possible by messaging or phone call. Otherwise return for marked increase in pain or swelling, fever, repeated vomiting. Take this copy of the radiology report with you. Images have been sent to [facility]. Enclosed in your discharge also are your lab reports Medical Records Medical records reviewed: Yes I reviewed the patient's medical records Lab Data Lab results reviewed: Yes I reviewed the patient's lab results Labs: Lab Results 01/19/25 Range/Units 16:05 WBC 2.40 L (4.50-11.00) K/uL RBC 3.17 L (4.00-5.20) m/uL Hgb 10.3 L (12.0-16.0) gm/dL Hct 32.3 L (33.0-51.0) % MCV 102 H (80-100) fL MCH 33 (26-34) pg MCHC 32 (32-36) gm/dL RDW Coeff of Opal 19.6 H (11.5-15.5) % Plt Count 89 L (140-440) K/uL Neut % (Auto) 63.7 (42.0-72.0) % Lymph % (Auto) 18.8 L (20-44) % [place] % (Auto) 14.6 H (0.0-11.0) % Eos % (Auto) 1.7 (0.0-7.0) % Baso % (Auto) 0.8 (0.0-3.0) % Neut # (Auto) 1.50 L (1.7-7.0) K/uL Lymph # (Auto) 0.50 L (0.90-2.90) K/uL [place] # (Auto) 0.40 (0.00-0.90) K/UL Eos # (Auto) 0.00 (0.00-0.50) K/uL Baso # (Auto) 0.00 (0.00-0.30) K/uL Abs Immat Gran (auto) 0.00 (0.00-0.30) K/uL Imm/Tot Granulo (auto) 0.4 % Sodium 134 L (135-149) mmol/L Potassium 3.8 (3.6-5.1) mmol/L Chloride 103 (96-114) mmol/L Carbon Dioxide 24 (20-32) mmol/L Anion Gap 7 (7-15) mEq/L BUN 11 (7-30) mg/dL Creatinine 0.5 (0.5-1.5) mg/dL Estimated Creat Clear 45.82 Estimated GFR 97 ml/min Glucose 86 (60-115) mg/dL Calcium 8.3 L (8.4-10.6) mg/dL Total Bilirubin 1.1 (0.1-1.5) mg/dL Direct Bilirubin 0.4 (0.0-0.5) mg/dL AST 40 H (12-35) U/L ALT 23 (4-35) U/L Alkaline Phosphatase 152 H (40-150) U/L C-Reactive Protein 0.6 (0.5-1.0) mg/dL Total Protein 5.5 L (6.0-8.3) g/dL Albumin 3.0 L (3.3-5.0) g/dL Discharge Plan Discharge Clinical Impression: Abdominal ascites, Thrombocytopenia, Metastases to the liver Patient Disposition: Home w/ Parent or Adult Condition: Improved Additional Instructions: I know you want to head out. I have not managed to get a hold of Oncology. I would still anticipate talking to them this evening. I will ask them to connect closely with you. Would also ask you to reach out to them as soon as possible by messaging or phone call. Otherwise return for marked increase in pain or swelling, fever, repeated vomiting. Take this copy of the radiology report with you. Images have been sent to [facility]. Enclosed in your discharge also are your lab reports Prescriptions: No Action aspirin 81 mg tablet,delayed release (DR/EC) 81 mg PO DAILY cholecalciferol (vitamin D3) 25 mcg (1,000 unit) capsule 25 mcg PO QDAY diphenhydramine-acetaminophen 25-500 mg tablet 0.5 tab PO HS multivitamin Tablet 1 tab PO QDAY cyanocobalamin (vitamin B-12) 1,000 mcg tablet extended release 1,000 mcg PO DAILY prochlorperazine maleate [Compazine] 5 mg tablet 5 mg PO BID PRN (Reason: nausea and vomiting) Qty: 60 0RF ondansetron HCl 4 mg tablet 4 mg PO Q8H Qty: 60 0RF Lonsurf 20-8.19 mg tablet 3 tab PO BID Qty: 60 0RF Rx Instructions: Take 3 tablets twice daily must administer with food (with morning and evening meals); on Days 1 through 5 and Days 8 through 12 of 28-day cycle polyethylene glycol 3350 [Miralax] 17 gram/dose powder 4 g PO DAILY PRN acetaminophen [Tylenol Extra Strength] 500 mg tablet 500 mg PO Q6H PRN amoxicillin 500 mg tablet 2,000 mg PO ONCE loperamide 2 mg capsule 2 - 4 mg PO Q4H MDD 8 capsules PRN (Reason: loose stool) Qty: 45 1RF hydrochlorothiazide 12.5 mg tablet 12.5 mg PO QAM Qty: 90 3RF metoprolol tartrate 50 mg tablet 50 mg PO BID Qty: 180 3RF sertraline 25 mg tablet 25 mg PO QDAY Qty: 90 3RF omeprazole 20 mg capsule,delayed release(DR/EC) 20 mg PO DAILY PRN (Reason: reflux) Qty: 90 3RF simvastatin 20 mg tablet 20 mg PO HS Qty: 90 3RF ondansetron HCl 8 mg tablet 8 mg PO Q8H PRN lidocaine HCl [Lidocaine Viscous] 2 % solution 1 applic mucous membrane QID PRN (Reason: mouth pain) Qty: 100 1RF Patient Comments: has this but hasn't used it yet Rx Instructions: Swish in mouth for 30-60 seconds, then spit. Apply 15-30 minutes before eating prn. prochlorperazine maleate 10 mg tablet 10 mg PO Q6H PRN (Reason: nausea/vomiting) Qty: 30 1RF potassium chloride 20 mEq tablet extended release 20 meq PO .COMPLEX Qty: 240 1RF Rx Instructions: Take 2 - 20 meq tablets 3 days per week, and Take 3 - 20 meq tablets 4 days per week. Follow Up/Referrals: Abrahan Nieto MD [Primary Care Provider, Family Practice] Stand Alone Forms: [facility] Info Instructions
--- NOTE | 2025-01-19 15:50 | CRLHL7_ITS ---
For Patients: As a result of the Century Cures Act, medical imaging exams and procedure reports are released immediately into your electronic medical record. You may view this report before your referring provider. If you have questions, please contact your health care provider. INDICATION: Increasing abdominal distension/bloating. History of rectal cancer with metastasis. TECHNIQUE: CT abdomen and pelvis without contrast. COMPARISON: None. FINDINGS: Lower chest: Scattered atelectasis. Trace left pleural effusion. Small hiatal hernia. Liver: Multiple scattered hepatic metastases.. Gallbladder and bile ducts: No stones or inflammation. No biliary dilatation. Pancreas: Unremarkable. No mass or inflammation. Spleen: Normal in size. No masses. Adrenal glands: Normal in size. No nodules. Kidneys: Normal in size. Few tiny right cortical hypodensities, too small to characterize. No suspicious masses, stones, or hydronephrosis. GI tract: Mild colonic stool burden. Colonic diverticulosis without diverticulitis. No bowel obstruction. Appendix not definitely seen. Vasculature: Aortoiliac arterial calcifications. Abdominal aorta is normal in caliber. Lymph nodes: No lymphadenopathy. Peritoneum/Abdominal Wall: Tiny fat containing umbilical hernia with trace fluid. Small to moderate volume ascites. No free air. Anasarca. Pelvis: Unremarkable. No pelvic masses. Bones: Unremarkable for age. IMPRESSION: Small to moderate volume ascites. Multiple hepatic metastasis. Otherwise, no acute intra-abdominal/pelvic abnormality. Additional chronic findings as above. Please note that all CT scans at this facility use dose modulation, iterative reconstruction, and/or weight-based dosing when appropriate to reduce radiation dose to as low as reasonably achievable. Dictated by Yaya Rossi MD @ 01/19/2025 4:28:02 PM (Electronically Signed)
[2025-01-19 16:14] LABS: Hematocrit* 32.3 % (33.0-51.0); Hemoglobin* 10.3 gm/dL (12.0-16.0); Immature Granulocytes Pct Auto 0.4 %; Mean Corpuscular HGB Conc 32 gm/dL (32-36); Mean Corpuscular Hemoglobin 33 pg (26-34); Mean Corpuscular Volume 102 fL (80-100); RDW Coefficient of Variation % 19.6 % (11.5-15.5); Red Blood Count* 3.17 m/uL (4.00-5.20); White Blood Count* 2.40 K/uL (4.50-11.00)
[2025-01-19 16:28] LABS: Albumin* 3.0 g/dL (3.3-5.0); Chloride* 103 mmol/L (96-114); Potassium* 3.8 mmol/L (3.6-5.1); Sodium* 134 mmol/L (135-149)
[2025-01-19 16:30] LABS: Immature Granulocytes Abs Auto 0.00 K/uL (0.00-0.30); Lymphocytes Absolute Auto 0.50 K/uL (0.90-2.90); Slide Review Reflex No
[2025-01-19 16:31] LABS: Alanine Aminotransferase* 23 U/L (4-35); Alkaline Phosphatase* 152 U/L (40-150); Anion Gap 7 mEq/L (7-15); Aspartate Amino Transferase* 40 U/L (12-35); Bilirubin Direct* 0.4 mg/dL (0.0-0.5); Bilirubin Total* 1.1 mg/dL (0.1-1.5); Blood Urea Nitrogen* 11 mg/dL (7-30); Calcium* 8.3 mg/dL (8.4-10.6); Carbon Dioxide* 24 mmol/L (20-32); Creatinine* 0.5 mg/dL (0.5-1.5); Est. Creatinine Clearance* 45.82; Estimated Glomerular Filt Rate 97 ml/min; Glucose* 86 mg/dL (60-115); Total Protein* 5.5 g/dL (6.0-8.3)
[2025-01-19] MEDS: HEPARIN 500 UNIT/5 ML SYRINGE IVF (17:54)
== END 2025-01-19 17:58 | disposition home or self-care (01) ==
PROVIDERS: Emergency Provider Family Medicine; PCP Family Medicine
DX: R10.33 Periumbilical pain (principal); R18.8 Other ascites; D69.59 Other secondary thrombocytopenia; T45.1X5A Adverse effect of antineoplastic and immunosuppressive drugs, initial encounter; C78.7 Secondary malignant neoplasm of liver and intrahepatic bile duct; C20 Malignant neoplasm of rectum; Z51.11 Encounter for antineoplastic chemotherapy
CPT/HCPCS: 36415; 74176; 80048; 80076; 85025; 86140; 96374; 99284; 99285; J1642

== ENCOUNTER 2025-01-25 06:57 | Outpatient (CLI) | payer MEDICARE, SELFPAY ==
[2025-01-25] VITALS (9 sets, daily range): BP systolic 131–146; BP diastolic 58–70; PULSE 60–99; RESP 16; TEMP 36.8; O2SAT 99–100
--- NOTE | 2025-01-25 08:00 | PM.GSCN ---
History of Present Illness Consult details Date Seen: 01/25/25 Consult date: 01/25/25 Narrative: Patient presents today for evaluation for paracentesis. She has never had the procedure performed before. She has been battling metastatic rectal adenocarcinoma for several years. A few weeks ago she bumped her stomach on the counter and had some pain at her belly button. She then noticed that her belly was much more distended than it normally is. She otherwise denies any abdominal pain. No shortness of breath. She has been tolerating a regular diet. For abdominal surgeries patient has had a laparoscopic cholecystectomy. A CT scan was obtained, which showed new abdominal asceites. Recommendations were for a therapeutic and diagnostic paracentesis. 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 - Other secondary thrombocytopenia (ICD-10) ?T45.1X5A - Adverse effect of antineoplastic and immunosuppressive drugs, initial encounter (ICD-10) Diarrhea ?R19.7 - Diarrhea, unspecified (ICD-10) Neutropenia ?D70.9 - Neutropenia, unspecified (ICD-10) History of colonic polyps ?Z86.010 - Personal history of colonic polyps (ICD-10) Closed fracture of distal radius and ulna (02/03/19) ?S52.509A - Unspecified fracture of the lower end of unspecified radius, initial encounter for closed fracture (ICD-10) ?S52.609A - Unspecified fracture of lower end of unspecified ulna, initial encounter for closed fracture (ICD-10) Surgical History History of surgery on right wrist (01/2019) ?Z98.890 - Other specified postprocedural states (ICD-10) Status post de Quervain's release surgery (09/2016) ?Z98.890 - Other specified postprocedural states (ICD-10) History of left knee surgery (12/2012) ?Z98.890 - Other specified postprocedural states (ICD-10) History of cholecystectomy (07/2015) ?Z90.49 - Acquired absence of other specified parts of digestive tract (ICD-10) Family History Father Heart disease High blood pressure High cholesterol 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 Narrative: 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 What is your current living situation?: I presently have a place to live Problems where you live: declined to answer In the past 12 months, utilities in danger of being shut off: no In past 12 months, lack of transportation kept you from medical appts, meetings, work, or getting things needed for daily living: no In the past 12 mos, have been you worried that your food would run out before you had money to buy more?: never true In the past 12 mos, the food you bought just didn't last and you didn't have money to buy more?: never true Smoking Status: Never smoker Second hand tobacco smoke exposure: No How often do you have a drink containing alcohol: monthly or less AUDIT-C Alcohol total score: 1 Non-prescribed substance use: denies use Are you now , , , , never or living with a partner: Social isolation score (0-1 are the most socially isolated patients): 1 How often does anyone, including family, friends and others, physically hurt you: never How often does anyone, including family, friends and others, insult or talk down to you: never How often does anyone, including family, friends and others, threaten you with harm: never How often does anyone, including family, friends and others, scream or curse at you: never Do you think of yourself as: straight/heterosexual Gender Identity: female Are you currently sexually active: No service: No Meds Home Medications and Allergies Home Medications ?Medication ?Instructions ?Recorded ?Confirmed ?Type aspirin 81 mg tablet,delayed 81 mg PO DAILY 01/01/22 01/20/25 History release Held on 01/21/25. Instructions: Doctor's Order cholecalciferol (vitamin D3) 25 25 mcg PO QDAY 01/01/22 01/20/25 History mcg (1,000 unit) capsule cyanocobalamin (vitamin B-12) 1,000 mcg PO DAILY 01/01/22 01/20/25 History 1,000 mcg tablet,extended release diphenhydramine 25 0.5 tab PO HS 01/01/22 01/20/25 History mg-acetaminophen 500 mg tablet multivitamin 1 tab PO QDAY 01/01/22 01/20/25 History polyethylene glycol 3350 17 4 g PO DAILY PRN 12/27/22 01/20/25 History gram/dose oral powder (Miralax) ondansetron HCl 8 mg tablet 8 mg PO Q8H PRN 01/09/23 01/20/25 History lidocaine HCl 2 % mucosal solution 1 applic mucous membrane QID PRN 03/26/23 01/20/25 Rx (Lidocaine Viscous) mouth pain #100 mL acetaminophen 500 mg tablet 500 mg PO Q6H PRN 12/06/23 01/20/25 History (Tylenol Extra Strength) prochlorperazine maleate 10 mg 10 mg PO Q6H PRN nausea/vomiting 05/22/24 01/20/25 Rx tablet #30 tabs amoxicillin 500 mg tablet 2,000 mg PO ONCE 08/26/24 01/20/25 History loperamide 2 mg capsule 2 - 4 mg (1 - 2 x 2 mg) PO Q4H PRN 08/26/24 01/20/25 Rx loose stool #45 caps hydrochlorothiazide 12.5 mg tablet 12.5 mg PO QAM #90 tabs 09/15/24 01/20/25 Rx metoprolol tartrate 50 mg tablet 50 mg PO BID #180 tabs 09/15/24 01/20/25 Rx omeprazole 20 mg capsule,delayed 20 mg PO DAILY PRN reflux #90 caps 09/15/24 01/20/25 Rx release sertraline 25 mg tablet 25 mg PO QDAY #90 tabs 09/15/24 01/20/25 Rx simvastatin 20 mg tablet 20 mg PO HS #90 tabs 09/15/24 01/20/25 Rx ondansetron HCl 4 mg tablet 4 mg PO Q8H #60 tabs 12/14/24 01/20/25 Rx prochlorperazine maleate 5 mg 5 mg PO BID PRN nausea and 12/14/24 01/20/25 Rx tablet (Compazine) vomiting #60 tabs trifluridine 20 mg-tipiracil 8.19 3 tab PO BID #60 tabs 12/14/24 01/20/25 Rx mg tablet (Lonsurf) potassium chloride 20 mEq 20 meq PO .COMPLEX low potassium 01/12/25 01/20/25 Rx tablet,extended release #240 tabs Allergies Allergy/AdvReac Type Severity Reaction Status Date / Time adhesive Allergy Severe Blister Verified 01/20/25 14:13 Exam Narrative: Exam Narrative: General: Alert and oriented, no acute distress Respiratory: Equal breath rise bilaterally, maintained on room air CV: Regular rhythm and rate Abdomen: Distended abdomen, positive fluid shift. Nontender to palpation. Umbilical hernia palpated. Const: Vital Signs, click to edit/add: Vital Signs - 24 hr 01/25/25 07:20 01/25/25 07:30 01/25/25 07:35 Temperature 98.3 F Pulse Rate [Pulse Oximeter] 64 99 64 Respiratory Rate 16 16 16 Blood Pressure [Le ft Arm] 146/61 H 140/70 H 135/67 Pulse Oximetry 100 100 100 Oxygen Delivery Me thod Room Air Room Air Room Air 01/25/25 07:40 01/25/25 07:44 01/25/25 07:47 Temperature 98.3 F 98.3 F Pulse Rate [Pulse Oximeter] 61 61 60 Respiratory Rate 16 16 16 Blood Pressure [Le ft Arm] 131/58 L 143/66 H 138/59 L Pulse Oximetry 100 100 99 Oxygen Delivery Me thod Room Air Room Air Room Air 01/25/25 07:55 Temperature Pulse Rate [Pulse Oximeter] 63 Respiratory Rate 16 Blood Pressure [Le ft Arm] 138/61 Pulse Oximetry 100 Oxygen Delivery Me thod Room Air Results Labs Labs: Platelets 89. INR 1.[address] scan report/results: report reviewed and image reviewed General Surgery Procedures Paracentesis Time out performed: Yes Imaging guidance used: Yes Indication: Ascites Procedure: diagnostic paracentesis Location: RLQ Local anesthetic used: lidocaine 1% Amount of anesthesia used (ml): 6 Bedside ultrasound used: yes, Ascites confirmed and location marked Preparation: 11 blade used to make kleber in skin (Sterile prep and drape) Amount of fluid obtained (ml): 4,800 Fluid: clear (Yellow tinge) Post procedure exam: awake, alert, normal BP, normal HR and normal SpO2 Patient tolerated procedure: well and no complications Complications: none Progress Note:A&P Assessment and plan (1) Abdominal ascites: Status: Acute Assessment and Plan: Patient presents for new onset abdominal ascites in the setting of metastatic rectal adenocarcinoma. Risks and benefits paracentesis were discussed at length with the patient. All questions and concerns were addressed with patient agreeing to proceed. 4800 mL of fluid was removed and sent for laboratory evaluation. Procedure was tolerated well without immediate complication. Plan -follow-up as needed.
[2025-01-25 09:37] LABS: Total Protein* 5.4 g/dL (6.0-8.3)
[2025-01-25 09:38] LABS: BF Clarity* Clear; BF Total Volume* 1500
[2025-01-25 09:39] LABS: Polynuclear WBC Body Fluid* 3 %; RBC, Body Fluid* 0 Cells/uL; WBC, Body Fluid* 0 Cells/uL
[2025-01-25 09:40] LABS: Mononuclear WBC Body Fluid* 97 %
[2025-01-25 10:20] LABS: Glucose Body Fluid* 104 mg/dL
[2025-01-25 10:21] LABS: Albumin Body Fluid* < 1.0 gm/dL; Amylase Body Fluid* < 30 U/L; Body Fluid Total Protein* < 2.0 gm/dL; LDH Body Fluid* 85 U/L
== END 2025-01-25 08:17 | disposition home or self-care (01) ==
LOC: US 06:58
PROVIDERS: PCP Family Medicine; Visit Provider Surgery
DX: R18.8 Other ascites (principal); D69.6 Thrombocytopenia, unspecified; C78.7 Secondary malignant neoplasm of liver and intrahepatic bile duct
CPT/HCPCS: 36415; 49083; 82042; 82150; 82945; 83615; 84155; 84157; 87070; 87205; 88112; 88305; 88313; 88341; 88342; 89051

== ENCOUNTER 2025-02-08 13:32 | Outpatient (CLI) | payer MEDICARE, SELFPAY ==
[2025-02-08 13:55] VITALS: BP 150/72; RESP 16; TEMP 36.3; O2SAT 98
[2025-02-08 14:16] VITALS: BP 144/72
[2025-02-08 14:31] VITALS: BP 124/61
[2025-02-08 14:44] VITALS: BP 135/61; PULSE 68; RESP 16; O2SAT 98
--- NOTE | 2025-02-08 14:49 | W.PM.PARA ---
Paracentesis Date Date: 02/08/25 Procedure Note Procedure: Paracentesis with Ultrasound Guidance Type of paracentesis: Therapeutic Initial or Repeat?: Repeat Surgeon: Sincere Jackson Indications: Ascites Labs and Cytology Sent:: No Albumin infused: No Procedure Note:: Prior to the procedure, the risks and benefits of the procedure were discussed and an informed consent was obtained. Patient identification was confirmed and TIME OUT was performed. [An ultrasound was brought onto the field and an easily accessible pocket of ascites was identified that was away from intraabdominal organs.] The patient's abdomen in the [Right Lower] quadrant was prepped and draped in the usual sterile fashion. 1% Lidocaine was used to anesthetize the skin, soft tissues and peritoneum over the proposed needle insertion site. A skin incision was made with a scalpel just large enough to fit the needle. The needle with the paracentesis catheter was advanced into the abdomen and a cystic fluid was aspirated into the syringe. The needle was then withdrawn and the catheter was left in place. The catheter was then connected to the drainage tubing. [3.5] Liters of [straw colored] fluid was drained. [This was sent to the lab for testing and cytology]. Post procedure ultrasound revealed [no residual ascitic fluid]. The catheter was then removed and the skin was closed with Dermabond. Patient tolerated procedure well and there were no immediate complications. Patient's vital signs were stable throughout the procedure [and no albumin was infused]. Recomendation: Discharge to home (ambulatory) and return to normal activities [tomorrow]. Follow up with referring provider as needed.
== END 2025-02-08 14:59 | disposition home or self-care (01) ==
LOC: US 13:32
PROVIDERS: PCP Family Medicine; Visit Provider Internal Medicine
DX: C20 Malignant neoplasm of rectum (principal)
CPT/HCPCS: 49083

== ENCOUNTER 2025-02-23 12:46 | Outpatient (CLI) | payer MEDICARE, SELFPAY ==
[2025-02-23 12:57] VITALS: BP 131/53; PULSE 66; RESP 20; TEMP 36.4; O2SAT 100
[2025-02-23 13:16] VITALS: BP 123/60; PULSE 68; RESP 20; O2SAT 99
[2025-02-23 13:32] VITALS: BP 116/52; PULSE 66; RESP 20; O2SAT 100
--- NOTE | 2025-02-23 13:40 | W.PM.PARA ---
Paracentesis Date Date: 02/23/25 Procedure Note Procedure: Paracentesis with Ultrasound Guidance Type of paracentesis: Therapeutic Initial or Repeat?: Repeat Surgeon: Sincere Jackson Indications: Ascites Albumin infused: No Procedure Note:: Prior to the procedure, the risks and benefits of the procedure were discussed and an informed consent was obtained. Patient identification was confirmed and TIME OUT was performed. [An ultrasound was brought onto the field and an easily accessible pocket of ascites was identified that was away from intraabdominal organs.] The patient's abdomen in the [Right Lower] quadrant was prepped and draped in the usual sterile fashion. 1% Lidocaine was used to anesthetize the skin, soft tissues and peritoneum over the proposed needle insertion site. A skin incision was made with a scalpel just large enough to fit the needle. The needle with the paracentesis catheter was advanced into the abdomen and a cystic fluid was aspirated into the syringe. The needle was then withdrawn and the catheter was left in place. The catheter was then connected to the drainage tubing. [4800] Liters of [straw colored] fluid was drained. [This was sent to the lab for testing and cytology]. Post procedure ultrasound revealed [no residual ascitic fluid]. The catheter was then removed and the skin was closed with Dermabond. Patient tolerated procedure well and there were no immediate complications. Patient's vital signs were stable throughout the procedure [and no albumin was infused]. Recomendation: Discharge to home (ambulatory) and return to normal activities [tomorrow]. Follow up with referring provider as needed.
[2025-02-23 13:45] VITALS: BP 114/50; PULSE 60; RESP 20; O2SAT 99
== END 2025-02-23 13:57 | disposition home or self-care (01) ==
LOC: US 12:46
PROVIDERS: PCP Family Medicine; Visit Provider Internal Medicine
DX: R18.8 Other ascites (principal); C79.9 Secondary malignant neoplasm of unspecified site
CPT/HCPCS: 49083

== ENCOUNTER 2025-03-16 14:28 | Outpatient (CLI) | payer MEDICARE, SELFPAY ==
--- NOTE | 2025-03-16 16:49 | PM.PROC ---
Procedure Note Date Seen: 03/16/25 Will [facility] bill your pro fee for this procedure?: Yes Pre-op diagnosis: Abdominal ascites Post-op diagnosis: same Procedure: Paracentesis Procedure Description: After discussion of the risks and benefits the patient was placed supine. Ultrasound guidance was used to identify the pocket of ascites with no evidence of underlying bowel and no abdominal varices. Once this was done the site was marked. The area was prepped and draped in the usual sterile fashion. Local anesthetic was used to anesthetize the skin and subcutaneous tissue down to the peritoneum. Once the peritoneum was encountered, the needle was advanced into the abdomen. This was confirmed by the aspiration of serous fluid. A skin kleber was made with an 11 blade. The paracentesis catheter was advanced into the abdominal cavity while aspirating. Once the abdominal fluid was aspirated confirming entrance into the abdomen, the needle was removed and the sheath advanced. 6250 mL of fluid were then aspirated. Patient tolerated procedure well with no evidence of hypotension. The ultrasound was used to confirm successful aspiration with significantly reduced intra-abdominal fluid. The catheter was then removed, and Dermabond applied over the skin site. Patient tolerated the procedure well. Estimated blood loss 1 mL Anesthesia: local Pathology: none sent Condition: stable Disposition: no change
== END 2025-03-16 14:29 | disposition home or self-care (01) ==
LOC: US 14:29
PROVIDERS: PCP Family Medicine; Visit Provider Surgery
DX: R18.8 Other ascites (principal); C44.92 Squamous cell carcinoma of skin, unspecified
CPT/HCPCS: 49083

== ENCOUNTER 2025-03-29 14:21 | Outpatient (CLI) | payer MEDICARE, SELFPAY ==
[2025-03-29] VITALS (7 sets, daily range): BP systolic 118–132; BP diastolic 55–77; PULSE 63–99; RESP 20; TEMP 36.6; O2SAT 99–100
--- NOTE | 2025-03-29 15:41 | P.PCN_ITS ---
Procedure Note Date Seen: 03/29/25 Will [facility] bill your pro fee for this procedure?: Yes Pre-op diagnosis: Abdominal ascites Post-op diagnosis: same Procedure: Paracentesis Procedure Description: After discussion of the risks and benefits the patient was placed supine. Ultrasound guidance was used to identify the pocket of ascites with no evidence of underlying bowel and no abdominal varices. Once this was done the site was marked. The area was prepped and draped in the usual sterile fashion. Local anesthetic was used to anesthetize the skin and subcutaneous tissue down to the peritoneum. Once the peritoneum was encountered, the needle was advanced into the abdomen. This was confirmed by the aspiration of serous fluid. A skin kleber was made with an 11 blade. The paracentesis catheter was advanced into the abdominal cavity while aspirating. Once the abdominal fluid was aspirated confirming entrance into the abdomen, the needle was removed and the sheath advanced. Seven thousand mL of fluid were then aspirated. Patient tolerated procedure well with no evidence of hypotension. The ultrasound was used to confirm successful aspiration with significantly reduced intra-abdominal fluid. The catheter was then removed, and Dermabond applied over the skin site. Patient tolerated the procedure well. Estimated blood loss 1 mL Anesthesia: local Pathology: none sent Condition: stable Disposition: no change
== END 2025-03-29 16:10 | disposition home or self-care (01) ==
LOC: US 14:22
PROVIDERS: PCP Family Medicine; Visit Provider Surgery
DX: R18.8 Other ascites (principal); K74.60 Unspecified cirrhosis of liver
CPT/HCPCS: 49083